=== PATIENT | male | born 1955 | race Caucasian/White ===

== ENCOUNTER 2019-01-12 20:18 | Emergency (ER) | payer MEDICARE, OTHER ==
[2019-01-12 20:37] VITALS: RESP 18
[2019-01-12 21:06] LABS: Glucose,Whole Blood 72 mg/dL (75-99)
[2019-01-12] MEDS ORDERED: SODIUM CHLORIDE 0.9% 500 ML 500 ML IV ONE (21:16)
[2019-01-12] MEDS ORDERED: SODIUM CHLORIDE 0.9% 1,000 ML IV ONE ×3 (21:16→23:22)
--- NOTE | 2019-01-12 21:23 | ED ---
Altered Mental Status HPI - General Chief Complaint: Altered Mental Status Stated Complaint: Altered Mental Status Time Seen by Provider: 01/12/19 20:23 Source: patient, EMS, RN notes reviewed, old records reviewed Mode of arrival: EMS Limitations: no limitations - History of Present Illness Initial Comments: This is a 63-year-old male the ER for evaluation presented today for evaluation of found down. Patient is altered, phone known from normal down time. He was found a well check today. Patient is arousable alert able to answer questions but is in significant distress, occasionally delusional patient nonsensical. History further. From EMS and patient's prior evaluations in charting MD Complaint: altered mental status, confusion, weakness -: unknown Severity: moderate, severe Consistency of Symptoms: waxing and waning, getting worse Context: history of similar presentation Associated Symptoms: weakness - Related Data Home Medications Medication Instructions Recorded Confirmed Aspirin EC [Ecotrin Low Dose] 81 mg PO DAILY 01/12/19 01/12/19 Atorvastatin [Lipitor] 80 mg PO DAILY 01/12/19 01/12/19 Carvedilol [Coreg] 6.25 mg PO BID 01/12/19 01/12/19 Insulin Detemir (Levemir) [Levemir] 100 unit SQ HS 01/12/19 01/12/19 Lisinopril [Zestril] 20 mg PO DAILY 01/12/19 01/12/19 Nitroglycerin Sl Tabs [Nitrostat] 0.4 mg SUBLINGUAL Q5M PRN 01/12/19 01/12/19 Spironolactone [Aldactone] 25 mg PO DAILY 01/12/19 01/12/19 Allergies Allergy/AdvReac Type Severity Reaction Status Date / Time No Known Allergies Allergy Verified 01/12/19 20:37 Review of Systems ROS Statement: Those systems with pertinent positive or pertinent negative responses have been documented in the HPI. ROS Other: All systems not noted in ROS Statement are negative. 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 Absent: scleral icterus, conjunctival injection, periorbital swelling ENT exam: Present: normal exam, mucous membranes dry Neck exam: Present: normal inspection. Absent: tenderness, meningismus, lymphadenopathy Respiratory exam: Present: normal lung sounds bilaterally. Absent: respiratory distress, wheezes, rales, rhonchi, stridor Cardiovascular Exam: Present: normal rhythm, tachycardia, normal heart sounds. Absent: systolic murmur, diastolic murmur, rubs, gallop, clicks GI/Abdominal exam: Present: soft, normal bowel sounds. Absent: distended, tenderness, guarding, rebound, rigid Extremities exam: Present: normal inspection, full ROM, normal capillary refill. Absent: tenderness, pedal edema, joint swelling, calf tenderness Back exam: Present: normal inspection Neurological exam: Present: alert, oriented X3, CN II-XII intact Psychiatric exam: Present: normal affect, normal mood Skin exam: Present: warm, dry, intact, normal color. Absent: rash Course Vital Signs 01/12/19 20:26 Temperature 97.8 F Pulse Rate 112 H Respiratory 18 Rate Blood Pressure 173/94 O2 Sat by Pulse 97 Oximetry - Reevaluation(s) Reevaluation #1: 01/12/19 23:20 Medical record is reviewed Reevaluation #2: 01/12/19 23:20 Patient still delirious not feeling very much improved with IV hydration - Consultations Consultation #1: spoke w Dr. Pedro mcgee for admission Medical Decision Making - Medical Decision Making 63 male the ER for evaluation with altered mental status, delirium. Patient is to be admitted regarding found down we will check severe weakness mild rhabdo myolysis and severe dehydration - Lab Data Result diagrams: 01/12/19 20:57 01/12/19 22:09 Lab Results 01/12/19 01/12/19 01/12/19 Range/Units 20:57 20:57 20:57 WBC 16.4 H (3.8-10.6) k/uL RBC 4.73 (4.30-5.90) m/uL Hgb 15.1 (13.0-17.5) gm/dL Hct 45.8 (39.0-53.0) % MCV 96.8 (80.0-100.0) fL MCH 31.9 (25.0-35.0) pg MCHC 32.9 (31.0-37.0) g/dL RDW 13.7 (11.5-15.5) % Plt Count 162 (150-450) k/uL Neutrophils % 88 % Lymphocytes % 5 % Monocytes % 5 % Eosinophils % 1 % Basophils % 1 % Neutrophils # 14.4 H (1.3-7.7) k/uL Lymphocytes # 0.7 L (1.0-4.8) k/uL Monocytes # 0.8 (0-1.0) k/uL Eosinophils # 0.1 (0-0.7) k/uL Basophils # 0.2 (0-0.2) k/uL PT 11.9 (9.0-12.0) sec INR 1.1 (<1.2) APTT 25.1 (22.0-30.0) sec Sodium (137-145) mmol/L Potassium (3.5-5.1) mmol/L Chloride (98-107) mmol/L Carbon Dioxide (22-30) mmol/L Anion Gap mmol/L BUN (9-20) mg/dL Creatinine (0.66-1.25) mg/dL Est GFR (CKD-EPI)AfAm (>60 ml/min/1.73 sqM) Est GFR (CKD-EPI)NonAf (>60 ml/min/1.73 sqM) Glucose (74-99) mg/dL POC Glucose (mg/dL) (75-99) mg/dL POC Glu Med Care Manager ID Calcium (8.4-10.2) mg/dL Phosphorus (2.5-4.5) mg/dL Magnesium (1.6-2.3) mg/dL Total Bilirubin (0.2-1.3) mg/dL AST (17-59) U/L ALT (21-72) U/L Alkaline Phosphatase (38-126) U/L Ammonia <9 (<30) umol/L Creatine Kinase (55-170) U/L Troponin I (0.000-0.034) ng/mL Total Protein (6.3-8.2) g/dL Albumin (3.5-5.0) g/dL 01/12/19 01/12/19 01/12/19 Range/Units 20:57 21:05 22:09 WBC (3.8-10.6) k/uL RBC (4.30-5.90) m/uL Hgb (13.0-17.5) gm/dL Hct (39.0-53.0) % MCV (80.0-100.0) fL MCH (25.0-35.0) pg MCHC (31.0-37.0) g/dL RDW (11.5-15.5) % Plt Count (150-450) k/uL Neutrophils % % Lymphocytes % % Monocytes % % Eosinophils % % Basophils % % Neutrophils # (1.3-7.7) k/uL Lymphocytes # (1.0-4.8) k/uL Monocytes # (0-1.0) k/uL Eosinophils # (0-0.7) k/uL Basophils # (0-0.2) k/uL PT (9.0-12.0) sec INR (<1.2) APTT (22.0-30.0) sec Sodium 139 (137-145) mmol/L Potassium 4.4 (3.5-5.1) mmol/L Chloride 102 (98-107) mmol/L Carbon Dioxide 25 (22-30) mmol/L Anion Gap 12 mmol/L BUN 17 (9-20) mg/dL Creatinine 0.74 (0.66-1.25) mg/dL Est GFR (CKD-EPI)AfAm >90 (>60 ml/min/1.73 sqM) Est GFR (CKD-EPI)NonAf >90 (>60 ml/min/1.73 sqM) Glucose 85 (74-99) mg/dL POC Glucose (mg/dL) 72 L (75-99) mg/dL POC Glu Med Care Manager ID Whit Mcmillan Calcium 8.7 (8.4-10.2) mg/dL Phosphorus 4.1 (2.5-4.5) mg/dL Magnesium 1.6 (1.6-2.3) mg/dL Total Bilirubin 2.1 H (0.2-1.3) mg/dL AST 63 H (17-59) U/L ALT 51 (21-72) U/L Alkaline Phosphatase 62 (38-126) U/L Ammonia (<30) umol/L Creatine Kinase 835 H (55-170) U/L Troponin I 0.080 H* (0.000-0.034) ng/mL Total Protein 5.8 L (6.3-8.2) g/dL Albumin 3.4 L (3.5-5.0) g/dL - EKG Data -: EKG Interpreted by Me (EKG shows sinus tachycardia rate of 109, AR 146, QRS 140, QTc 509) - Radiology Data Radiology results: report reviewed (CT brain negative for acute disease old lacunar infarct chest x-ray pelvis x-ray negative for traumatic injury), image reviewed Disposition Clinical Impression: Altered mental status, Weakness, Rhabdomyolysis, Debility, Dehydration, Delirium due to general medical condition Disposition: ADMITTED IP TO THIS HOSP Is patient prescribed a controlled substance at d/c from ED?: No Referrals: None,Stated [Primary Care Provider] - 1-2 days
[2019-01-12 21:32] LABS: Basophils # (A) 0.2 k/uL (0-0.2); Basophils % (A) 1 %; Eosinophils # (A) 0.1 k/uL (0-0.7); Eosinophils % (A) 1 %; HCT 45.8 % (39.0-53.0); HGB 15.1 gm/dL (13.0-17.5); Lymphocytes # (A) 0.7 k/uL (1.0-4.8); Lymphocytes % (A) 5 %; MCH 31.9 pg (25.0-35.0); MCHC 32.9 g/dL (31.0-37.0); MCV 96.8 fL (80.0-100.0); Mean Platelet Volume 9.8; Monocytes # (A) 0.8 k/uL (0-1.0); Monocytes % (A) 5 %; Neutrophils # (A) 14.4 k/uL (1.3-7.7); Neutrophils % (A) 88 %; Platelet Count 162 k/uL (150-450); RBC 4.73 m/uL (4.30-5.90); RDW 13.7 % (11.5-15.5); WBC 16.4 k/uL (3.8-10.6)
[2019-01-12 21:58] LABS: INR 1.1 (<1.2); Partial Thromboplastin Time 25.1 sec (22.0-30.0); Prothrombin Time 11.9 sec (9.0-12.0)
[2019-01-12 22:42] LABS: ALT 51 U/L (21-72); AST 63 U/L (17-59); African American GFR (CKD) >90 (>60 ml/min/1.73 sqM); Albumin 3.4 g/dL (3.5-5.0); Alkaline Phosphatase 62 U/L (38-126); Anion Gap 12 mmol/L; Blood Urea Nitrogen 17 mg/dL (9-20); Calcium 8.7 mg/dL (8.4-10.2); Carbon Dioxide 25 mmol/L (22-30); Chloride 102 mmol/L (98-107); Creatine Kinase 835 U/L (55-170); Glucose 85 mg/dL (74-99); Magnesium 1.6 mg/dL (1.6-2.3); Non-African American GFR(CKD) >90 (>60 ml/min/1.73 sqM); Phosphorus 4.1 mg/dL (2.5-4.5); Potassium 4.4 mmol/L (3.5-5.1); Sodium 139 mmol/L (137-145); Total Bilirubin 2.1 mg/dL (0.2-1.3); Total Protein 5.8 g/dL (6.3-8.2)
--- NOTE | 2019-01-12 22:43 | CT ---
History: ITS.REASON CT Reason: altered mental status Exam: CT HEAD Without Contrast Technique more: CTDI is 49.1 mGy and DLP is 1173.4 mGy-cm. Technique more: This CT exam was performed using one or more of the following dose reduction techniques: automated exposure control, adjustment of the mA and/or kV according to patient size, and/or use of iterative reconstruction technique. Comparison: MRI 11/27/2013 FINDINGS: No intracranial hemorrhage or CT evidence of acute infarct. 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 The ventricles are unchanged in size or configuration and remain midline. There is again similar dilation of the posterior portion of the right lateral ventricle with cystic like area with suggested thin septation and displacement of the choroid overall appears unchanged in size. Appearance of right parietal occipital scalp soft tissue swelling suggested axial 29, clinically correlate. The paranasal sinuses, mastoids and orbits appear within limits. Bilateral parasellar carotid calcification. IMPRESSION: No intracranial hemorrhage or CT evidence of acute infarct. 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 The ventricles are unchanged in size or configuration and remain midline. There is again similar dilation of the posterior portion of the right lateral ventricle with cystic like area with suggested thin septation and displacement of the choroid overall appears unchanged in size, correlate with history and may follow-up with nonemergent neurosurgical consult as warranted. Appearance of right parietal occipital scalp soft tissue swelling suggested axial 29, clinically correlate.
[2019-01-12 23:49] VITALS: TEMP 98
--- NOTE | 2019-01-12 23:54 | XR ---
History: ITS.REASON XR Reason: fall Exam: XR CXR 2 VIEWS Comparison: None available FINDINGS: Small right pleural effusion with associated partial passive collapse, atelectasis. Very small portion of the left costophrenic angle excluded on the frontal view. The left lung appears clear. No evidence of pneumothorax. The cardiac silhouette appears upper limits for technique. Visualized osseous structures appear within limits. IMPRESSION: Small right pleural effusion with associated partial passive collapse, atelectasis. Very small portion of the left costophrenic angle excluded on the frontal view. The left lung appears clear. No evidence of pneumothorax.
[2019-01-13 00:02] LABS: Appearance,Urine Clear (Clear); Bacteria,Urine Rare /hpf; Bilirubin,Urine Negative (Negative); Blood,Urine Moderate (Negative); Color,Urine Yellow; Glucose,Urine (UA) Negative (Negative); Hyaline Casts,Urine 14 /lpf (0-2); Ketones,Urine 1+ (Negative); Leukocyte Esterase,Urine Trace (Negative); Mucus,Urine Occasional /hpf; Nitrite,Urine Negative (Negative); PH, Urine 5.5 (5.0-8.0); Protein,Urine 1+ (Negative); RBC,Urine 7 /hpf (0-5); Specific Gravity,Urine 1.017 (1.001-1.035); Squamous Epithelial Cell,Urine 1 /hpf (0-4); Urobilinogen,Urine <2.0 mg/dL (<2.0); WBC,Urine 6 /hpf (0-5)
--- NOTE | 2019-01-13 00:03 | XR ---
History: ITS.REASON XR Reason: fall Exam: XR PELVIS single image Comparison: None available FINDINGS: No evidence of fracture or dislocation. Symmetric appearing SI joints and pubic symphysis appear within limits. Vascular calcifications and pelvic phleboliths. Lower lumbar visualized spondylosis. IMPRESSION: No evidence of fracture or dislocation.
[2019-01-13 00:08] LABS: Amphetamine Screen,Urine Not Detected (NotDetected); Barbiturate Screen,Urine Not Detected (NotDetected); Benzodiazepines Screen,Urine Not Detected (NotDetected); Cocaine Screen,Urine Not Detected (NotDetected); Methadone Screen, Urine Not Detected (NotDetected); Opiate Screen,Urine Not Detected (NotDetected); Oxycodone Screen, Urine Not Detected (NotDetected); Phencyclidine Screen,Urine Not Detected (NotDetected); Tricyclic Antidepressant,Urine Not Detected (NotDetected); Urn Cannabinoid Scrn Not Detected (NotDetected)
--- NOTE | 2019-01-13 00:20 | ED ---
Medical Decision Making - Medical Decision Making 63 male to ED for AMS, found down, mild rhabdomyolysis, CT findings for possible Cyst may need enurosurgical consult on a nonEmergent basis, Dr Sebastian Gonzalez refused admission stating that patient needs neurosurgical evaluation. - Lab Data Result diagrams: 01/12/19 20:57 01/12/19 22:09 Lab Results 01/12/19 01/12/19 01/12/19 Range/Units 20:57 20:57 20:57 WBC 16.4 H (3.8-10.6) k/uL RBC 4.73 (4.30-5.90) m/uL Hgb 15.1 (13.0-17.5) gm/dL Hct 45.8 (39.0-53.0) % MCV 96.8 (80.0-100.0) fL MCH 31.9 (25.0-35.0) pg MCHC 32.9 (31.0-37.0) g/dL RDW 13.7 (11.5-15.5) % Plt Count 162 (150-450) k/uL Neutrophils % 88 % Lymphocytes % 5 % Monocytes % 5 % Eosinophils % 1 % Basophils % 1 % Neutrophils # 14.4 H (1.3-7.7) k/uL Lymphocytes # 0.7 L (1.0-4.8) k/uL Monocytes # 0.8 (0-1.0) k/uL Eosinophils # 0.1 (0-0.7) k/uL Basophils # 0.2 (0-0.2) k/uL PT 11.9 (9.0-12.0) sec INR 1.1 (<1.2) APTT 25.1 (22.0-30.0) sec Sodium (137-145) mmol/L Potassium (3.5-5.1) mmol/L Chloride (98-107) mmol/L Carbon Dioxide (22-30) mmol/L Anion Gap mmol/L BUN (9-20) mg/dL Creatinine (0.66-1.25) mg/dL Est GFR (CKD-EPI)AfAm (>60 ml/min/1.73 sqM) Est GFR (CKD-EPI)NonAf (>60 ml/min/1.73 sqM) Glucose (74-99) mg/dL POC Glucose (mg/dL) (75-99) mg/dL POC Glu Zipper Measurer ID Calcium (8.4-10.2) mg/dL Phosphorus (2.5-4.5) mg/dL Magnesium (1.6-2.3) mg/dL Total Bilirubin (0.2-1.3) mg/dL AST (17-59) U/L ALT (21-72) U/L Alkaline Phosphatase (38-126) U/L Ammonia <9 (<30) umol/L Creatine Kinase (55-170) U/L Troponin I (0.000-0.034) ng/mL Total Protein (6.3-8.2) g/dL Albumin (3.5-5.0) g/dL 01/12/19 01/12/19 01/12/19 Range/Units 20:57 21:05 22:09 WBC (3.8-10.6) k/uL RBC (4.30-5.90) m/uL Hgb (13.0-17.5) gm/dL Hct (39.0-53.0) % MCV (80.0-100.0) fL MCH (25.0-35.0) pg MCHC (31.0-37.0) g/dL RDW (11.5-15.5) % Plt Count (150-450) k/uL Neutrophils % % Lymphocytes % % Monocytes % % Eosinophils % % Basophils % % Neutrophils # (1.3-7.7) k/uL Lymphocytes # (1.0-4.8) k/uL Monocytes # (0-1.0) k/uL Eosinophils # (0-0.7) k/uL Basophils # (0-0.2) k/uL PT (9.0-12.0) sec INR (<1.2) APTT (22.0-30.0) sec Sodium 139 (137-145) mmol/L Potassium 4.4 (3.5-5.1) mmol/L Chloride 102 (98-107) mmol/L Carbon Dioxide 25 (22-30) mmol/L Anion Gap 12 mmol/L BUN 17 (9-20) mg/dL Creatinine 0.74 (0.66-1.25) mg/dL Est GFR (CKD-EPI)AfAm >90 (>60 ml/min/1.73 sqM) Est GFR (CKD-EPI)NonAf >90 (>60 ml/min/1.73 sqM) Glucose 85 (74-99) mg/dL POC Glucose (mg/dL) 72 L (75-99) mg/dL POC Glu Zipper Measurer ID Whit Mcmillan Calcium 8.7 (8.4-10.2) mg/dL Phosphorus 4.1 (2.5-4.5) mg/dL Magnesium 1.6 (1.6-2.3) mg/dL Total Bilirubin 2.1 H (0.2-1.3) mg/dL AST 63 H (17-59) U/L ALT 51 (21-72) U/L Alkaline Phosphatase 62 (38-126) U/L Ammonia (<30) umol/L Creatine Kinase 835 H (55-170) U/L Troponin I 0.080 H* (0.000-0.034) ng/mL Total Protein 5.8 L (6.3-8.2) g/dL Albumin 3.4 L (3.5-5.0) g/dL Disposition Clinical Impression: Altered mental status, Weakness, Rhabdomyolysis, Debility, Dehydration, Delir ium due to general medical condition, Brain cyst Narrative: Brain Cyst w Choroid Displacement Disposition: OTHER INSTITUTION NOT DEFINED Condition: Fair Is patient prescribed a controlled substance at d/c from ED?: No - Out of Hospital Transfer - Req. Specs Out of Hospital Transfer - Requested Specifics[facility] [place]
[2019-01-13 00:24] VITALS: BP 144/86; PULSE 100
[2019-01-13] MEDS ORDERED: ENOXAPARIN 40 MG/0.4 ML SYRINGE SQ SCH (09:00)
== END 2019-01-13 01:25 | disposition other institution (70) ==
LOC: EC 20:18 → UNDOADMOB 23:23 → 4MS4W 23:23 → EC 01-13 01:25
DX: M62.82 Rhabdomyolysis (principal); G93.0 Cerebral cysts; E86.0 Dehydration; R53.81 Other malaise; R41.82 Altered mental status, unspecified; E11.9 Type 2 diabetes mellitus without complications; I50.9 Heart failure, unspecified; Z79.4 Long term (current) use of insulin; Z79.82 Long term (current) use of aspirin; Z79.02 Long term (current) use of antithrombotics/antiplatelets; Z79.899 Other long term (current) drug therapy; Z87.891 Personal history of nicotine dependence
CPT/HCPCS: 36415; 70450; 71046; 72170; 80053; 80306; 81001; 82140; 82550; 83735; 84100; 84484; 85025; 85610; 85730; 93005; 96360; 96361; 99285

== ENCOUNTER 2021-07-28 10:09 | Observation (INO) | payer MEDICARE, OTHER ==
[2021-07-28] MEDS ORDERED: ASPIRIN 81 MG PO STA (10:40)
--- NOTE | 2021-07-28 11:07 | ED ---
Chest Pain HPI - General Chief Complaint: Chest Pain Stated Complaint: chest pain Time Seen by Provider: 07/28/21 10:17 Source: patient, RN notes reviewed Mode of arrival: wheelchair Limitations: no limitations - History of Present Illness Initial Comments: This a 66-year-old male presents emergency Department chief complaint of chest pain. Patient states started a couple hours prior arrival. Patient states that he did take 3 nitro which finally helped some of discomfort. Patient states he was told that he had prior heart attacks has no prior stents. Patient denies any shortness breath this time. Digits for breath. No fevers or chills patient has a history of brain cancer. He shouldn't denies any other associated symptoms. - Related Data Home Medications Medication Instructions Recorded Confirmed Aspirin EC [Ecotrin Low Dose] 81 mg PO DAILY 01/12/19 01/12/19 Atorvastatin [Lipitor] 80 mg PO DAILY 01/12/19 01/12/19 Insulin Detemir (Levemir) [Levemir] 100 unit SQ HS 01/12/19 01/12/19 Nitroglycerin Sl Tabs [Nitrostat] 0.4 mg SUBLINGUAL Q5M PRN 01/12/19 01/12/19 Spironolactone [Aldactone] 25 mg PO DAILY 01/12/19 01/12/19 carvediloL [Coreg] 6.25 mg PO BID 01/12/19 01/12/19 lisinopriL [Zestril] 20 mg PO DAILY 01/12/19 01/12/19 Allergies Allergy/AdvReac Type Severity Reaction Status Date / Time No Known Allergies Allergy Verified 07/28/21 10:14 Review of Systems ROS Statement: Those systems with pertinent positive or pertinent negative responses have been documented in the HPI. ROS Other: All systems not noted in ROS Statement are negative. 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 Absent: scleral icterus, conjunctival injection, periorbital swelling ENT exam: Present: normal exam, normal oropharynx, mucous membranes moist Neck exam: Present: normal inspection, full ROM. Absent: tenderness, meningismus, lymphadenopathy Respiratory exam: Present: normal lung sounds bilaterally. Absent: respiratory distress, wheezes, rales, rhonchi, stridor Cardiovascular Exam: Present: regular rate, normal rhythm, normal heart sounds. Absent: systolic murmur, diastolic murmur, rubs, gallop, clicks GI/Abdominal exam: Present: soft, normal bowel sounds. Absent: distended, tenderness, guarding, rebound, rigid Neurological exam: Present: alert, oriented X3, CN II-XII intact Skin exam: Present: warm, dry, intact, normal color. Absent: rash Course Vital Signs 07/28/21 07/28/21 10:12 12:44 Temperature 98.4 F Pulse Rate 69 70 Respiratory 22 20 Rate Blood Pressure 93/61 153/82 O2 Sat by Pulse 99 100 Oximetry Chest Pain MDM - MDM EKG did have some subtle changes noted on, troponins 0.020had persistent chest pain will be admitted for cardiac rule out. Disposition Clinical Impression: Chest pain Disposition: ADMITTED IP TO THIS HOSP Condition: Fair Referrals: Nonstaff,Physician [Primary Care Provider] - 1-2 days
[2021-07-28 11:16] LABS: Basophils % (A) 1 %; Eosinophils # (A) 0.3 k/uL (0-0.7); Eosinophils % (A) 4 %; HCT 37.9 % (39.0-53.0); HGB 12.7 gm/dL (13.0-17.5); Lymphocytes # (A) 1.3 k/uL (1.0-4.8); Lymphocytes % (A) 17 %; MCH 31.8 pg (25.0-35.0); MCHC 33.4 g/dL (31.0-37.0); MCV 95.2 fL (80.0-100.0); Mean Platelet Volume 8.7; Monocytes # (A) 0.4 k/uL (0-1.0); Monocytes % (A) 5 %; Neutrophils # (A) 5.8 k/uL (1.3-7.7); Neutrophils % (A) 73 %; Platelet Count 148 k/uL (150-450); RBC 3.98 m/uL (4.30-5.90); RDW 13.3 % (11.5-15.5)
[2021-07-28 11:30] LABS: Partial Thromboplastin Time 22.7 sec (22.0-30.0); Prothrombin Time 10.7 sec (9.0-12.0)
[2021-07-28 11:33] LABS: Albumin 3.5 g/dL (3.5-5.0); Calcium 8.8 mg/dL (8.4-10.2); Magnesium 1.8 mg/dL (1.6-2.3); Potassium 4.6 mmol/L (3.5-5.1); Total Bilirubin 0.8 mg/dL (0.2-1.3); Total Protein 6.3 g/dL (6.3-8.2)
--- NOTE | 2021-07-28 12:01 | XR ---
EXAMINATION TYPE: XR chest 2V DATE OF EXAM: 07/28/2021 COMPARISON: 01/12/2019 HISTORY: Shortness of breath TECHNIQUE: Frontal and lateral views of the chest are obtained. FINDINGS: Scattered senescent parenchymal changes noted. No evidence for infiltrate. No evidence for atelectasis. Heart size is stable. Mediastinal structures are stable and grossly unremarkable. No evidence for hilar prominence. Degenerative changes dorsal spine. IMPRESSION: 1. No evidence for acute pulmonary disease.
[2021-07-28] MEDS ORDERED: NITROGLYCERIN SL TABS 0.4 MG TAB SUBLINGUAL PRN (12:51)
[2021-07-28] MEDS ORDERED: traMADol 50 MG TAB PO PRN (14:48)
--- NOTE | 2021-07-28 15:17 | HP ---
HISTORY AND PHYSICAL HISTORY OF PRESENT ILLNESS: 66-year-old male came in with atypical chest pain. He normally gets when he has angina with blocked arteries. He says his last catheterization was a year ago. He has significant history of coronary artery disease with 100% blockage in his LAD. He said they wanted him to do bypass before, but his insurance would not pay for it. He has insurance that will pay for bypass now. This is what he is requesting. He has a right foot amputation. MEDICATIONS: Home medicines please see list. PAST MEDICAL HISTORY: He is a diabetic, insulin-dependent, hypertension, coronary artery disease. Possibly past medical history of some kind of cancers in the past. PAST SURGICAL HISTORY: Surgeries including cataract, vasectomy. PHYSICAL EXAMINATION: Vital signs reviewed. CARDIOVASCULAR S1, S2. LUNGS: Clear. GI soft. HEMATOLOGY: Negative Homans. INTEGUMENT: His has right toe incisions across the base of his foot with all toes removed and appears to be open but linearly open and possibly deep. NEUROLOGIC: Cranial nerves intact. PSYCH: Fair mood and affect. EKG some subtle changes. Troponin were reviewed. ASSESSMENT: 1. Unstable angina. 2. History of coronary artery disease. 3. Suspect more blockages in his heart. 4. Insulin-dependent diabetes mellitus. 5. Diabetic wound infection. 6. Status post amputation of the right foot. 7. Hypertension. 8. Dyslipidemia. PLAN: Dr. Thompson has checked the foot out. Continue current cardiac medications. Rule out [place]. Possibly a bypass or cardiac stents will be needed with an angiogram. MMODL / IJN: [id number] /
[2021-07-28] MEDS: IPRATROPIUM-ALBUTEROL 3 ML NEB INHALATION SCH ×2 (17:38→20:01)
[2021-07-28] MEDS: carvediloL 12.5 MG TAB PO SCH (17:44)
[2021-07-28] MEDS: ATORVASTATIN 80 MG TAB PO SCH (20:02)
[2021-07-28 20:12] LABS: Glucose,Whole Blood 190 mg/dL (75-99)
[2021-07-28] MEDS: INSULIN ASPART (NovoLOG) 100 UNIT/ML VIAL SQ SCH (20:39)
--- NOTE | 2021-07-28 23:34 | P.CONS ---
History of Present Illness - Reason for Consult Consult date: 07/28/21 Right foot wound Requesting physician: Simon Omalley - Chief Complaint Shortness of breath x one day - History of Present Illness Patient is 66-year-old male with a past medical history significant for diabetes mellitus insulin-dependent hypertension hyperlipidemia in this patient who did have recent right foot transmetatarsal amputation surgery completed at [facility] patient presenting to the ER for evaluation of shortness of breath and some chest discomfort for the patient did took 3 nitro to help relieve his discomfort patient mention he got upset at something that triggered this episode currently patient is chest pain-free and i s breathing comfortably he did have occasional cough which is chronic for him no worsening sputum production patient denies having any nausea no vomiting no abdominal pain or any diarrhea patient currently do have a nonhealing wound to the right foot transmetatarsal amputation site however the patient currently do not have any pain to the right foot wound area and there is no foul-smelling drainage patient denies having any fever or any chills or presentation the hospital the patient was afebrile, the patient did have a normal white count patient did have a chest x-ray no evidence of acute cardiopulmonary disease patient was admitted to hospital infectious was consulted for his management of his chronic nonhealing wound to the right foot transmetatarsal amputation site Review of Systems Positive point has been mentioned in the HPI rest of the systems are negative Past Medical History Past Medical History: Asthma, Coronary Artery Disease (CAD), Cancer, Chest Pain / Angina, Heart Failure, Diabetes Mellitus, Hyperlipidemia, Hypertension, Myocardial Infarction (ME), Pneumonia, Respiratory Disorder Additional Past Medical History / Comment(s): Pt states he has hx of brain cancer with paralysis but that the brain cancer "went away" on it's own without treatment, he states he now has a brain cyst, pt states he was exposed to vapors in the workplace and has lung damage d/t this, pt states he wears oxygen ATC to keep from having heart attacks, IDDM type II, neuropathy bilateral legs/feet, partial amp R foot and has wound there now treated with I&D and antibiotics, balance issues/FALLS, anemia, arthritis in multiple joints. Last Myocardial Infarction Date:: 2020 History of Any Multi-Drug Resistant Organisms: None Reported Past Surgical History: Appendectomy, Heart Catheterization, Orthopedic Surgery, Tonsillectomy Additional Past Surgical History / Comment(s): Cardiac caths at [facility] and [facility], R partial foot amp, I&Ds R foot wound, cataract removals, colonoscopy, vasectomy. Past Anesthesia/Blood Transfusion Reactions: No Reported Reaction Smoking Status: Former smoker - Past Family History Father Additional Family Medical History / Comment(s): Father had multiple MIs and from one at the age of 51 yrs. Mother Additional Family Medical History / Comment(s): Mother had a bad heart. Medications and Allergies Home Medications Medication Instructions Recorded Confirmed Type Aspirin EC [Ecotrin Low Dose] 81 mg PO DAILY 01/12/19 07/28/21 History Atorvastatin [Lipitor] 80 mg PO HS 01/12/19 07/28/21 History Albuterol Inhaler [Ventolin Hfa 1 - 2 puff INHALATION RT-Q4H PRN 07/28/21 07/28/21 History Inhaler] Carvedilol [Coreg] 12.5 mg PO BID 07/28/21 07/28/21 History Clopidogrel Bisulfate [Plavix] 75 mg PO DAILY 07/28/21 07/28/21 History Ferrous Sulfate [Feosol] 325 mg PO DAILY 07/28/21 07/28/21 History Furosemide [Lasix] 40 mg PO DAILY 07/28/21 07/28/21 History Insulin Aspart (Niacinamide) 10 units SQ BID 07/28/21 07/28/21 History [Fiasp 100 Unit/ml Flextouch Pen] Insulin Glargine,Hum.rec.anlog 50 unit SQ DAILY 07/28/21 07/28/21 History [Lantus Solostar Pen] Ipratropium-Albuterol Nebulize 3 ml INHALATION RT-QID 07/28/21 07/28/21 History [Duoneb 0.5 mg-3 mg/3 ml Soln] Isosorbide Mononitrate ER [Imdur] 30 mg PO DAILY 07/28/21 07/28/21 History Lactulose [Cephulac] 20 gm PO DAILY 07/28/21 07/28/21 History Losartan [Cozaar] 25 mg PO DAILY 07/28/21 07/28/21 History traMADol HCL [Ultram] 50 mg PO Q6HR PRN 07/28/21 07/28/21 History Allergies Allergy/AdvReac Type Severity Reaction Status Date / Time No Known Allergies Allergy Verified 07/28/21 13:48 Physical Exam Vitals: Vital Signs Temp Pulse Pulse Resp BP BP Pulse Ox 07/28/21 20:09 80 07/28/21 20:01 81 100 07/28/21 18:50 97.9 F 80 18 150/74 100 07/28/21 17:47 76 07/28/21 17:45 75 16 128/94 100 07/28/21 17:39 78 100 07/28/21 12:44 70 20 153/82 100 07/28/21 10:12 98.4 F 69 22 93/61 99 Intake and Output 07/28/21 07/28/21 07/29/21 14:59 22:59 06:59 Other: Voiding Method Toilet Weight 108.862 kg 108.862 kg GENERAL DESCRIPTION: Middle-aged male lying in bed, no distress. No tachypnea or accessory muscle of respiration use. HEENT: Shows Pallor , no scleral icterus. Oral mucous membrane is dry. No pharyngeal erythema or thrush NECK: Trachea central, no thyromegaly. LUNGS: Unlabored breathing. Clear to auscultation anteriorly. No wheeze or crack le. HEART: S1, S2, regular rate and rhythm. No loud murmur ABDOMEN: Soft, no tenderness , guarding or rigidity, no organomegaly EXTREMITIES: Right [facility] possible amputation site did have a wound with some slough tissue no surrounding redness or any drainage SKIN: No rash, no masses palpable. NEUROLOGICAL: The patient is awake, alert, oriented x3, mood and affect normal. Results CBC & Chem 7: 07/28/21 10:49 07/28/21 10:49 Labs: Abnormal Lab Results - Last 24 Hours (Table) 07/28/21 07/28/21 07/28/21 Range/Units 10:49 10:49 15:38 RBC 3.98 L (4.30-5.90) m/uL Hgb 12.7 L (13.0-17.5) gm/dL Hct 37.9 L (39.0-53.0) % Plt Count 148 L (150-450) k/uL Chloride 108 H (98-107) mmol/L BUN 41 H (9-20) mg/dL Glucose 128 H (74-99) mg/dL POC Glucose (mg/dL) (75-99) mg/dL Hemoglobin A1c 8.5 H (0.0-6.0) % 07/28/21 Range/Units 20:11 RBC (4.30-5.90) m/uL Hgb (13.0-17.5) gm/dL Hct (39.0-53.0) % Plt Count (150-450) k/uL Chloride (98-107) mmol/L BUN (9-20) mg/dL Glucose (74-99) mg/dL POC Glucose (mg/dL) 190 H (75-99) mg/dL Hemoglobin A1c (0.0-6.0) % Assessment and Plan (1) Wound of right foot Current Visit: Yes Status: Acute Code(s): S91.301A - UNSPECIFIED OPEN WOUND, RIGHT FOOT, INITIAL ENCOUNTER SNOMED Code(s): 440663113 Plan: 1patient with a nonhealing wound to the right foot transmetatarsal imitation site wound base did have some slough tissue but no surrounding redness no fever no white count clinic suspicion low for secondary infection. 2local wound care with Medih[employer] followed by moist dressing change daily. 3no need for systemic antibiotic therapy. We will follow on clinical condition and cultures to further adjust medication if needed Thank you for this consultation will follow this patient along with you Time with Patient: Greater than 30
[2021-07-29] MEDS ORDERED: ASPIRIN 325 MG TAB PO STA (00:55)
[2021-07-29] MEDS ORDERED: INSULIN DETEMIR (LEVEMIR) 100 UNIT/ML SYR SQ SCH (07:00)
[2021-07-29 07:35] LABS: Glucose,Whole Blood 101 mg/dL (75-99)
[2021-07-29] MEDS: CLOPIDOGREL 75 MG TAB PO SCH (08:36)
[2021-07-29] MEDS: FERROUS SULFATE 325 MG TAB PO SCH (08:36)
[2021-07-29] MEDS: ISOSORBIDE MONONITRATE ER 30 MG TAB.ER.24H PO SCH (08:36)
[2021-07-29] MEDS: LOSARTAN 25 MG TAB PO SCH (08:36)
[2021-07-29] MEDS: FUROSEMIDE 40 MG TAB PO SCH (08:37)
[2021-07-29] MEDS: LACTULOSE 20 GM/30 ML CUP PO SCH (08:37)
[2021-07-29] MEDS: IPRATROPIUM-ALBUTEROL 3 ML NEB INHALATION SCH ×4 (08:40→19:00)
[2021-07-29] MEDS ORDERED: ASPIRIN 81 MG PO SCH (09:00)
[2021-07-29] MEDS ORDERED: ASPIRIN 325 MG TAB PO SCH (09:00)
[2021-07-29 09:23] LABS: Chol/HDL Ratio 2.56 Ratio; LDL Cholesterol,Calculated 50.3 mg/dL (0.0-131.0); VLDL Calculation 15.46 mg/dL (5.00-40.00)
--- NOTE | 2021-07-29 10:00 | ECHOF ---
Referral Reason:chest pain MEASUREMENTS -------- HEIGHT: 182.9 cm WEIGHT: 108.9 kg BP: IVSd: 1.4 cm (0.6 - 1.1) LVIDd: 6.2 cm (3.9 - 5.3) LVPWd: 2.0 cm (0.6 - 1.1) IVSs: 2.3 cm LVIDs: 4.3 cm LVPWs: 1.9 cm Ao Diam: 3.1 cm (2.0 - 3.7) AV Cusp: 2.3 cm (1.5 - 2.6) LA Diam: 3.0 cm (2.7 - 3.8) MV EXCURSION: 8.590 mm (> 18.000) MV EF SLOPE: 46 mm/s (70 - 150) EPSS: 1.6 cm FINDINGS -------- This was a technically difficult study with suboptimal views. The left ventricle is mildly dilated. Left ventricular wall thickness is normal. Overall left cody tricular systolic function is severely impaired with, an EF between 25 - 30 %. Very difficult image s. The RV was not well visualized. The left atrium was not well visualized. The right atrium was not well visualized. 5.0mg of Lumason was utilized for enhancement of images The aortic valve was not well visualized. The mitral valve was not well visualized. The tricuspid valve was not well visualized. The pulmonic valve was not well visualized. CONCLUSIONS -------- 1. The left ventricle is mildly dilated. 2. Left ventricular wall thickness is normal. 3. Overall left ventricular systolic function is severely impaired with, an EF between 25 - 30 %. 4. Very difficult images.. TOBACCO SCRAP SIFTER: Mery Kerr [facility]
--- NOTE | 2021-07-29 10:54 | P.CRDCN ---
History of Present Illness History of present illness: HISTORY OF PRESENTING ILLNESS This is a pleasant .66-year-old male past medical history significant for coronary artery disease (states he has triple vessel CAD told he needed CABG 2-3 years ago), type 2 diabetes, congestive heart failure, cardiomyopathy (unknown details, states he wore a LifeVest 2 years ago), hypertension, dyslipidemia, former tobacco use, recent right foot transmetatarsal amputation secondary to infection completed at [facility] March 25, 2022. 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 We have been asked to see in consultation for chest pain. Patient presents to emergency department with complaints of midsternal chest discomfort, also had symptoms of nausea, vomiting, abdominal pain, shortness of breath. He states he has intermittent chest discomfort for over 3 months. It comes and goes. Non-radiating, nonexertional. Describes it as heaviness, "someone sitting on my chest". no specific aggravating factors. It was relieved by Nitro. He also endorses shortness of breath, nausea, vomiting, which is not new. He states a nurse from [facility] brought him here because "they said he was having a heart attack" He states providers have told him he has 1 year to live. He states that he was told he also had Brain cysts or cancer in the past. He also states that he did not go through with CABG 2 years ago due to insurance issues. He states at this time he does have insurance however no one will perform bypass on him due to his condition at this point. He states when he recieved the LifeVest he just sent it back via [employer] did not inform a provider. He did not follow up with cardiology after admissions at [facility] or [facility] in Levels. DIAGNOSTICS EKG reveals sinus rhythm, heart rate 66, right bundle-branch block,non-specific ST-T wave abnormalities. Prior EKG in 2019 with similar non-specific abnor malities Telemetry tracings indicate sinus mechanism, heart rate in the 60s-80s Chest xray no acute cardiopulmonary process Laboratory reviewed, WBC 8.0, hemoglobin 12.7, platelets 148, d-dimer negative, sodium 139, potassium 4.6, BUN 41, serum creatinine 1.14, BNP 927, troponin negative x []. Current cardiac medications include lisinopril 20 mg daily, carvedilol 6.25 mg twice a day, spironolactone 25 mg daily, atorvastatin 80 mg daily, aspirin 81 mg daily, PRN niro REVIEW OF SYSTEMS At the time of my exam: CONSTITUTIONAL: Denies fever or chills. CARDIOVASCULAR: Denies chest pain, shortness of breath, orthopnea, PND or palpitations. RESPIRATORY: Denies cough. GASTROINTESTINAL: Denies abdominal pain, diarrhea, constipation, nausea or vomiting. MUSCULOSKELETAL: Denies myalgias. NEUROLOGIC: Denies numbness, tingling, headacbe or weakness. ENDOCRINE: Denies fatigue, weight change, polydipsia or polyurina. GENITOURINARY: Denies burning, hematuria or urgency with micturation. HEMATOLOGIC: Denies history of anemia or bleeding. PHYSICAL EXAMINATION Vitals reviewed CONSTITUTIONAL: No apparent distress. HEENT: Head is normocephalic. Pupils are equal, round. Sclerae anicteric. Mucous membranes of the mouth are moist. No JVD. No carotid bruit. CHEST EXAMINATION: Lungs are diminished in the bases to auscultation. No chest wall tenderness is noted on palpation or with deep breathing. HEART EXAMINATION: Regular rate and rhythm. S1, S2 heard. Systolic ejection murmur noted. ABDOMEN: Soft, nontender. Positive bowel sounds. EXTREMITIES: 2+ peripheral pulses, no lower extremity edema and no calf tenderness. NEUROLOGIC EXAMINATION: Patient is awake, alert and oriented x3. Unclear of full medical history. ASSESSMENT Chest pain, atypical, acute coronary syndrome has been ruled out History of congestive heart failure History of Cardiomyopathy (unknown details) History of triple vessel coronary artery disease was recommended CABG 2-3 years ago (unkown details) Type 2 diabetes Hypertension Dyslipidemia Former tobacco use Recent right foot transmetatarsal amputation surgery completed at [facility], non-healing wound PLAN Obtain 2D echocardiogram and doppler study to assess cardiac structure and function. We will obtain records from [facility] and [facility] Continue aspirin, statin, carvedilol, Plavix, Lasix, Imdur, losartan, and PRN nitro Further recommendations based on above. Nurse practitioner note has been reviewed by physician. Signing provider agrees with the documented findings, assessment, and plan of care. Past Medical History Past Medical History: Cancer, Heart Failure, Diabetes Mellitus Additional Past Medical History / Comment(s): states half his brain is gone, brain cancer History of Any Multi-Drug Resistant Organisms: None Reported Past Surgical History: Appendectomy, Tonsillectomy Additional Past Surgical History / Comment(s): cataracts, vasectomy, Past Psychological History: No Psychological Hx Reported Smoking Status: Former smoker Past Alcohol Use History: None Reported Past Drug Use History: None Reported - Past Family History Father Additional Family Medical History / Comment(s): Father had multiple MIs and from one at the age of 51 yrs. Mother Additional Family Medical History / Comment(s): Mother had a bad heart. Medications and Allergies Home Medications Medication Instructions Recorded Confirmed Type Aspirin EC [Ecotrin Low Dose] 81 mg PO DAILY 01/12/19 07/28/21 History Atorvastatin [Lipitor] 80 mg PO HS 01/12/19 07/28/21 History Albuterol Inhaler [Ventolin Hfa 1 - 2 puff INHALATION RT-Q4H PRN 07/28/21 07/28/21 History Inhaler] Carvedilol [Coreg] 12.5 mg PO BID 07/28/21 07/28/21 History Clopidogrel Bisulfate [Plavix] 75 mg PO DAILY 07/28/21 07/28/21 History Ferrous Sulfate [Feosol] 325 mg PO DAILY 07/28/21 07/28/21 History Furosemide [Lasix] 40 mg PO DAILY 07/28/21 07/28/21 History Insulin Aspart (Niacinamide) 10 units SQ BID 07/28/21 07/28/21 History [Fiasp 100 Unit/ml Flextouch Pen] Insulin Glargine,Hum.rec.anlog 50 unit SQ DAILY 07/28/21 07/28/21 History [Lantus Solostar Pen] Ipratropium-Albuterol Nebulize 3 ml INHALATION RT-QID 07/28/21 07/28/21 History [Duoneb 0.5 mg-3 mg/3 ml Soln] Isosorbide Mononitrate ER [Imdur] 30 mg PO DAILY 07/28/21 07/28/21 History Lactulose [Cephulac] 20 gm PO DAILY 07/28/21 07/28/21 History Losartan [Cozaar] 25 mg PO DAILY 07/28/21 07/28/21 History traMADol HCL [Ultram] 50 mg PO Q6HR PRN 07/28/21 07/28/21 History Allergies Allergy/AdvReac Type Severity Reaction Status Date / Time No Known Allergies Allergy Verified 07/28/21 13:48 Physical Exam Vitals: Vital Signs Temp Pulse Resp BP Pulse Ox 07/28/21 12:44 70 20 153/82 100 07/28/21 10:12 98.4 F 69 22 93/61 99 Intake and Output 07/27/21 07/28/21 07/28/21 22:59 06:59 14:59 Other: Weight 108.862 kg Results 07/28/21 10:49 07/28/21 10:49 Cardiac Enzymes 07/28/21 07/28/21 Range/Units 10:49 10:49 AST 23 (17-59) U/L Troponin I 0.020 (0.000-0.034) ng/mL Coagulation 07/28/21 Range/Units 10:49 PT 10.7 (9.0-12.0) sec APTT 22.7 (22.0-30.0) sec CBC 07/28/21 Range/Units 10:49 WBC 8.0 (3.8-10.6) k/uL RBC 3.98 L (4.30-5.90) m/uL Hgb 12.7 L (13.0-17.5) gm/dL Hct 37.9 L (39.0-53.0) % Plt Count 148 L (150-450) k/uL Comprehensive Metabolic Panel 07/28/21 Range/Units 10:49 Sodium 139 (137-145) mmol/L Potassium 4.6 (3.5-5.1) mmol/L Chloride 108 H (98-107) mmol/L Carbon Dioxide 25 (22-30) mmol/L BUN 41 H (9-20) mg/dL Creatinine 1.14 (0.66-1.25) mg/dL Glucose 128 H (74-99) mg/dL Calcium 8.8 (8.4-10.2) mg/dL AST 23 (17-59) U/L ALT 20 (4-49) U/L Alkaline Phosphatase 62 (38-126) U/L Total Protein 6.3 (6.3-8.2) g/dL Albumin 3.5 (3.5-5.0) g/dL Current Medications Generic Name Dose Route Start Last Admin Trade Name Freq PRN Reason Stop Dose Admin Aspirin 325 mg 07/29/21 09:00 Aspirin 325 Mg Tab PO DAILY TWILA Nitroglycerin 0.4 mg 07/28/21 12:51 Nitroglycerin Sl Tabs 0.4 Mg Tab SUBLINGUAL Q5M PRN Chest Pain Intake and Output 07/27/21 07/28/21 07/28/21 22:59 06:59 14:59 Other: Weight 108.862 kg Patient Weight 07/29/21 06:59 Weight 108.862 kg 07/28/21 10:49 07/28/21 10:49
[2021-07-29 12:13] LABS: Glucose,Whole Blood 146 mg/dL (75-99)
[2021-07-29] MEDS: INSULIN ASPART (NovoLOG) 100 UNIT/ML VIAL SQ SCH ×2 (12:23→20:39)
[2021-07-29] MEDS: carvediloL 12.5 MG TAB PO SCH ×2 (16:23→17:13)
[2021-07-29 17:15] LABS: Glucose,Whole Blood 156 mg/dL (75-99)
[2021-07-29 20:26] LABS: Glucose,Whole Blood 190 mg/dL (75-99)
[2021-07-29] MEDS: ATORVASTATIN 80 MG TAB PO SCH (20:38)
--- NOTE | 2021-07-29 21:30 | P.PN ---
Subjective Progress Note Date: 07/29/21 Principal diagnosis: Right foot wound Patient is a 66 year male with a past medical history significant for right foot transmetatarsal amputation for diabetic foot infection with a nonhealing wound in this patient admitted to the hospital with some chest pain and shortness of breath. On today's evaluation that is 07/29/2021 the patient denies having any fever or any chills, the patient is breathing more comfortably, patient denies having any chest pain or cough no abdominal pain or pain to the right foot wound area Objective - Vital Signs Vital signs: Vital Signs Temp 97.8 F 07/29/21 07:00 Pulse 65 07/29/21 12:08 Resp 18 07/29/21 07:00 BP 122/85 07/29/21 07:00 Pulse Ox 99 07/29/21 08:42 Intake & Output 07/28/21 07/29/21 07/29/21 18:59 06:59 18:59 Weight 108.862 kg Other: Voiding Method Toilet # Voids 3 - Exam GENERAL DESCRIPTION: Middle-aged male lying in bed in no distress RESPIRATORY SYSTEM: Unlabored breathing , decreased breath sounds at bases HEART: S1 S2 regular rate and rhythm , ABDOMEN: Soft , no tenderness EXTREMITIES: Right foot is currently dressed no drainage on the dressing - Labs CBC & Chem 7: 07/28/21 10:49 07/28/21 10:49 Labs: Abnormal Lab Results - Last 24 Hours (Table) 07/28/21 07/28/21 07/29/21 Range/Units 15:38 20:11 07:33 POC Glucose (mg/dL) 190 H 101 H (75-99) mg/dL Hemoglobin A1c 8.5 H (0.0-6.0) % 07/29/21 Range/Units 12:12 POC Glucose (mg/dL) 146 H (75-99) mg/dL Hemoglobin A1c (0.0-6.0) % Assessment and Plan (1) Wound of right foot Current Visit: Yes Status: Acute Code(s): S91.301A - UNSPECIFIED OPEN WOUND, RIGHT FOOT, INITIAL ENCOUNTER SNOMED Code(s): 253657352 Plan: 1patient with a nonhealing wound to the right foot transmetatarsal imitation site wound base did have some slough tissue but no surrounding redness no fever no white count clinic suspicion low for secondary infection. 2local wound care with Med[facility] followed by moist dressing change daily. 3no need for systemic antibiotic therapy. Time with Patient: Less than 30
[2021-07-30 07:16] LABS: Glucose,Whole Blood 182 mg/dL (75-99)
[2021-07-30] MEDS: IPRATROPIUM-ALBUTEROL 3 ML NEB INHALATION SCH ×3 (08:36→15:28)
[2021-07-30] MEDS: INSULIN ASPART (NovoLOG) 100 UNIT/ML VIAL SQ SCH (08:49)
[2021-07-30] MEDS: LOSARTAN 25 MG TAB PO SCH (08:50)
[2021-07-30] MEDS: FUROSEMIDE 40 MG TAB PO SCH (08:50)
[2021-07-30] MEDS: FERROUS SULFATE 325 MG TAB PO SCH (08:51)
[2021-07-30] MEDS: carvediloL 12.5 MG TAB PO SCH (08:51)
[2021-07-30] MEDS: CLOPIDOGREL 75 MG TAB PO SCH (08:52)
[2021-07-30] MEDS: LACTULOSE 20 GM/30 ML CUP PO SCH (08:52)
[2021-07-30] MEDS: ISOSORBIDE MONONITRATE ER 30 MG TAB.ER.24H PO SCH (08:52)
[2021-07-30] MEDS ORDERED: ASPIRIN 81 MG PO SCH (09:00)
[2021-07-30 10:30] LABS: Glucose,Whole Blood 235 mg/dL (75-99)
--- NOTE | 2021-07-30 10:32 | P.PN ---
Subjective This is a pleasant .66-year-old male past medical history significant for coronary artery disease (states he has triple vessel CAD told he needed CABG 2-3 years ago), type 2 diabetes, congestive heart failure, cardiomyopathy (unknown details, states he wore a LifeVest 2 years ago), hypertension, dyslipidemia, former tobacco use, recent right foot transmetatarsal amputation secondary to infection completed at [facility] March 25, 2022. He has not followed up with a hair mixer. We have been asked to see in consultat ion for chest pain. Patient presents to emergency department with complaints of midsternal chest discomfort, also had symptoms of nausea, vomiting, abdominal pain, shortness of breath. He states he has intermittent chest discomfort for over 3 months. It comes and goes. Non-radiating, nonexertional. Describes it as heaviness, "someone sitting on my chest". no specific aggravating factors. It was relieved by Nitro. He also endorses shortness of breath, nausea, vomiting, which is not new. He states a nurse from [facility] brought him here because "they said he was having a heart attack" Patient initially went to [facility], underwent cardiac catheterization. He was discharged with a LifeVest at that time (No records available) He then went to [facility] after. This was in 2018 and Records have been obtained: Records: February 2018 patient presented to [facility] with heart failure. He underwent an echocardiogram that revealed an EF of 30%, moderate to severe global hypokinesis. He underwent cardiac catheterization on 02/22/2018 which revealed an EF of 40%, mild diffuse disease in the LAD, mild diffuse disease in the circumflex, moderate diffuse disease in the RCA, proximal lesion with 80% stenosis, chronic total occlusion of the mid RCA with grade 3 collaterals from the left anterior coronary system via septal perforators. At that time it was recommended that patient be managed with optimal medical therapy and will consider possible PCI to the RCA. No PCI was performed at that time. 07/30/2021 Patient seen and examined at bedside. No acute distress. No further chest pain. no acute events overnight. Vital signs stable. His breathing has improved. He states that his symptoms were improved with DuoNeb's. Echocardiogram revealed 2530%. He denies any orthopnea or PND. Patient is currently maintained on aspirin 80 mg daily, atorvastatin 80 mg daily, carvedilol 12.5 mg twice a day, Biaxin 5 mg daily, Lasix 40 mg daily, Imdur 30 mg daily, losartan 25 mg daily PHYSICAL EXAMINATION Vitals reviewed CONSTITUTIONAL: No apparent distress. HEENT: Neck Supple. No JVD. No carotid bruit. CHEST EXAMINATION: Lungs are diminished in the bases to auscultation. No chest wall tenderness is noted on palpation or with deep breathing. HEART EXAMINATION: Regular rate and rhythm. S1, S2 heard. Systolic ejection murmur noted. ABDOMEN: Soft, nontender. Positive bowel sounds. EXTREMITIES: 2+ peripheral pulses, no lower extremity edema and no calf tenderness. NEUROLOGIC EXAMINATION: Patient is awake, alert and oriented x3. Unclear of full medical history. ASSESSMENT Chest pain, atypical, acute coronary syndrome has been ruled out History of congestive heart failure with reduced ejection fraction History of ischemic Cardiomyopathy EF 25-30% Coronary artery disease, as noted above from cardiac catheterization performed in 2018. Type 2 diabetes Hypertension Dyslipidemia Former tobacco use Recent right foot transmetatarsal amputation surgery completed at [facility], non-healing wound PLAN Records reviewed by Dr. Tomlin. No further inpatient workup at this time from a cardiology perspective. Recommend continuing current medical therapy and have close follow up with cardiology as an outpatient. Nurse practitioner note has been reviewed by physician. Signing provider agrees with the documented findings, assessment, and plan of care. Objective - Vital Signs Vital signs: Vital Signs Temp 97.8 F 07/30/21 07:21 Pulse 78 07/30/21 08:55 Resp 16 07/30/21 07:21 BP 165/71 07/30/21 07:21 Pulse Ox 98 07/30/21 08:38 Intake & Output 07/29/21 07/30/21 07/30/21 18:59 06:59 18:59 Intake Total 118 Balance 118 Intake: Oral 118 Other: Voiding Method Toilet Toilet # Voids 1 1 1 - Labs CBC & Chem 7: 07/28/21 10:49 07/28/21 10:49 Labs: Abnormal Lab Results - Last 24 Hours (Table) 07/29/21 07/29/21 07/29/21 Range/Units 12:12 17:14 20:24 POC Glucose (mg/dL) 146 H 156 H 190 H (75-99) mg/dL 07/30/21 Range/Units 07:14 POC Glucose (mg/dL) 182 H (75-99) mg/dL
[2021-07-30 12:05] LABS: Glucose,Whole Blood 202 mg/dL (75-99)
[2021-07-30 14:01] VITALS: BP 137/67; RESP 16; TEMP 98.1
[2021-07-30 15:46] VITALS: PULSE 71
[2021-07-30] MEDS ORDERED: INSULIN DETEMIR (LEVEMIR) 100 UNIT/ML SYR SQ SCH (21:00)
--- NOTE | 2021-08-06 21:22 | P.PN ---
Subjective Progress Note Date: 07/30/21 Principal diagnosis: Right foot wound Patient is a 66 year male with a past medical history significant for right foot transmetatarsal amputation for diabetic foot infection with a nonhealing wound in this patient admitted to the hospital with some chest pain and shortness of breath. On today's evaluation that is 07/30/2021 the patient remains to be afebrile, the patient is breathing comfortably, the patient denies chest pain or cough no abdominal pain or pain to the right foot wound area Objective - Vital Signs Vital signs: Vital Signs Temp 98.0 F 07/30/21 10:35 Pulse 72 07/30/21 12:03 Resp 18 07/30/21 10:35 BP 95/54 07/30/21 10:35 Pulse Ox 99 07/30/21 10:35 Intake & Output 07/29/21 07/30/21 07/30/21 18:59 06:59 18:59 Intake Total 118 Balance 118 Intake: Oral 118 Other: Voiding Method Toilet Toilet # Voids 1 1 1 - Exam GENERAL DESCRIPTION: Middle-aged male lying in bed in no distress RESPIRATORY SYSTEM: Unlabored breathing , decreased breath sounds at bases HEART: S1 S2 regular rate and rhythm , ABDOMEN: Soft , no tenderness EXTREMITIES: Right foot is currently dressed no drainage on the dressing - Labs CBC & Chem 7: 07/28/21 10:49 07/28/21 10:49 Labs: Abnormal Lab Results - Last 24 Hours (Table) 07/29/21 07/29/21 07/30/21 Range/Units 17:14 20:24 07:14 POC Glucose (mg/dL) 156 H 190 H 182 H (75-99) mg/dL 07/30/21 07/30/21 Range/Units 10:28 12:03 POC Glucose (mg/dL) 235 H 202 H (75-99) mg/dL Assessment and Plan (1) Wound of right foot Status: Acute Code(s): S91.301A - UNSPECIFIED OPEN WOUND, RIGHT FOOT, INITIAL ENCOUNTER SNOMED Code(s): 441645807 Plan: 1patient with a nonhealing wound to the right foot transmetatarsal imitation s ite wound base did have some slough tissue but no surrounding redness no fever no white count clinic suspicion low for secondary infection. 2local wound care with Medih[facility] followed by moist dressing change daily and close out Patient follow-up. 3there is no need for systemic antibiotic therapy on discharge.
== END 2021-07-30 16:41 ==
LOC: EC 10:09 → 6NMEDSUR 12:52
PROVIDERS: ADMIT Family Medicine; ATTEND Family Medicine
DX: I25.110 Atherosclerotic heart disease of native coronary artery with unstable angina pectoris (principal); E11.41 Type 2 diabetes mellitus with diabetic mononeuropathy; T87.81 Dehiscence of amputation stump; E11.628 Type 2 diabetes mellitus with other skin complications; I11.0 Hypertensive heart disease with heart failure; I50.22 Chronic systolic (congestive) heart failure; E78.5 Hyperlipidemia, unspecified; I25.82 Chronic total occlusion of coronary artery; I45.10 Unspecified right bundle-branch block; M19.90 Unspecified osteoarthritis, unspecified site; I25.2 Old myocardial infarction; I25.5 Ischemic cardiomyopathy; D64.9 Anemia, unspecified; J45.909 Unspecified asthma, uncomplicated; G93.0 Cerebral cysts; G83.9 Paralytic syndrome, unspecified; Z96.1 Presence of intraocular lens; Z98.42 Cataract extraction status, left eye; Z98.41 Cataract extraction status, right eye; Z87.01 Personal history of pneumonia (recurrent); Z89.431 Acquired absence of right foot; Z79.02 Long term (current) use of antithrombotics/antiplatelets; Z79.4 Long term (current) use of insulin; Z79.82 Long term (current) use of aspirin; Z79.899 Other long term (current) drug therapy; Z85.841 Personal history of malignant neoplasm of brain; Z87.891 Personal history of nicotine dependence; Z95.1 Presence of aortocoronary bypass graft; Z82.49 Family history of ischemic heart disease and other diseases of the circulatory system
CPT/HCPCS: 99285; 36415; 94640 ×5; 94760 ×2; 93005; 93306; 85379; 83880; 80061; 80053; 84443; 83735; 84484; 85025; 85610; 85730; 83036; 71046; G0378 ×3; Q9950

== ENCOUNTER 2021-10-29 15:17 | Observation (INO) | payer OTHER ==
--- NOTE | 2021-10-29 16:21 | ED ---
General Adult HPI - General Source: patient, RN notes reviewed, old records reviewed Mode of arrival: ambulatory Limitations: no limitations <Thai William - Last Filed: 10/29/21 22:51> <Patrick Cee - Last Filed: 10/31/21 11:23> - General Chief complaint: Altered Mental Status Stated complaint: AMS Time Seen by Provider: 10/29/21 15:55 - History of Present Illness Initial comments: 66-year-old [facility]. He has been petitioned. History from the patient is limited. He has really no understanding of why he is here. Apparently had loss of both bowel and bladder function earlier today and refused changes closed. He reports that he had a re cent admission for chest pain and is recommended to have bypass surgery. He has not expressing any chest pain currently. The majority of what he says his nonsensical. (Thai William) - Related Data Home Medications Medication Instructions Recorded Confirmed Aspirin EC [Ecotrin Low Dose] 81 mg PO DAILY 01/12/19 10/29/21 Atorvastatin [Lipitor] 80 mg PO HS 01/12/19 10/29/21 Albuterol Inhaler [Ventolin Hfa 1 - 2 puff INHALATION RT-Q4H PRN 07/28/21 10/29/21 Inhaler] Clopidogrel Bisulfate [Plavix] 75 mg PO DAILY 07/28/21 10/29/21 Ferrous Sulfate [Iron (65 MG 325 mg PO DAILY 07/28/21 10/29/21 Elemental)] Furosemide [Lasix] 40 mg PO DAILY 07/28/21 10/29/21 Insulin Aspart (Niacinamide) 10 units SQ BID 07/28/21 10/29/21 [Fiasp 100 Unit/ml Flextouch Pen] Ipratropium-Albuterol Nebulize 3 ml INHALATION RT-QID 07/28/21 10/29/21 [Duoneb 0.5 mg-3 mg/3 ml Soln] Isosorbide Mononitrate ER [Imdur] 30 mg PO DAILY 07/28/21 10/29/21 Lactulose [Cephulac] 20 gm PO DAILY 07/28/21 10/29/21 Losartan [Cozaar] 25 mg PO DAILY 07/28/21 10/29/21 carvediloL [Coreg] 12.5 mg PO BID 07/28/21 10/29/21 traMADol HCL [Ultram] 50 mg PO Q6HR PRN 07/28/21 10/29/21 Insulin Glargine,Hum.rec.anlog 50 unit SQ DAILY 10/29/21 10/29/21 [Basaglmukesh Arshadpen U-100] Allergies Allergy/AdvReac Type Severity Reaction Status Date / Time No Known Allergies Allergy Verified 10/29/21 18:20 Review of Systems ROS Other: All systems not noted in ROS Statement are negative. <Thai William - Last Filed: 10/29/21 22:51> ROS Other: All systems not noted in ROS Statement are negative. <Patrick Cee - Last Filed: 10/31/21 11:23> ROS Statement: Those systems with pertinent positive or pertinent negative responses have been documented in the HPI. Past Medical History Past Medical History: Cancer, Heart Failure, Diabetes Mellitus Additional Past Medical History / Comment(s): states half his brain is gone, brain cancer Last Myocardial Infarction Date:: 2020 History of Any Multi-Drug Resistant Organisms: None Reported Past Surgical History: Appendectomy, Tonsillectomy Additional Past Surgical History / Comment(s): cataracts, vasectomy, Past Anesthesia/Blood Transfusion Reactions: No Reported Reaction Past Psychological History: No Psychological Hx Reported Smoking Status: Former smoker Past Alcohol Use History: None Reported Past Drug Use History: None Reported - Past Family History Father Additional Family Medical History / Comment(s): Father had multiple MIs and from one at the age of 51 yrs. Mother Additional Family Medical History / Comment(s): Mother had a bad heart. <Thai William - Last Filed: 10/29/21 22:51> General Exam Limitations: no limitations General appearance: alert, in no apparent distress Head exam: Present: atraumatic, normocephalic Eye exam: Present: normal appearance, PERRL ENT exam: Present: normal exam Neck exam: Present: normal inspection. Absent: tenderness, meningismus Respiratory exam: Present: normal lung sounds bilaterally. Absent: respiratory distress, wheezes Cardiovascular Exam: Present: regular rate, normal rhythm GI/Abdominal exam: Present: soft. Absent: distended, tenderness Extremities exam: Present: normal capillary refill Neurological exam: Present: alert, CN II-XII intact. Absent: motor sensory deficit Psychiatric exam: Present: other (Paranoid). Absent: suicidal ideation <Thai William - Last Filed: 10/29/21 22:51> Course <Thai William - Last Filed: 10/29/21 22:51> Vital Signs 10/29/21 10/29/21 10/29/21 15:20 19:37 23:24 Temperature 98 F Pulse Rate 79 77 83 Respiratory 18 20 20 Rate Blood Pressure 144/72 168/69 158/89 O2 Sat by Pulse 100 100 99 Oximetry 10/30/21 10/30/21 10/30/21 06:03 07:01 07:08 Temperature Pulse Rate 70 80 82 Respiratory 18 16 16 Rate Blood Pressure 120/77 O2 Sat by Pulse 98 Oximetry 10/30/21 10/30/21 10/30/21 11:04 11:14 14:00 Temperature Pulse Rate 82 80 98 Respiratory 16 16 16 Rate Blood Pressure 157/82 O2 Sat by Pulse 97 Oximetry 10/31/21 00:00 Temperature Pulse Rate Respiratory 16 Rate Blood Pressure O2 Sat by Pulse Oximetry - Reevaluation(s) Reevaluation #1: 10/29/21 2300 Patient care signed out to Dr. Zacarias at shift change awaiting EPS evaluation (Thai William) EKG Findings - EKG Comments: EKG Findings:: Sinus rhythm right bundle branch block, rate is 70, DE interval 186, QRS duration 156, QTC 450 similar appearing QRS compared to previous EKG in July 2021. <Thai William - Last Filed: 10/29/21 22:51> Medical Decision Making - Lab Data Result diagrams: 10/29/21 16:36 10/29/21 16:36 <Thai William - Last Filed: 10/29/21 22:51> - Lab Data Result diagrams: 10/29/21 16:36 10/29/21 16:36 <Patrick Cee - Last Filed: 10/31/21 11:23> - Medical Decision Making Was notified by EPS that patient may have placement. Requesting certification at this time for psychiatric transfer to geriatric psychiatric facility. I spoke the patient. Is delusional. Has acute psychosis. States is compliant with medications. However he tells me that he has multiple times while he has been here. Believes people are trying to kill him. So medication was completed by myself. Pending transfer and placement. Exam is otherwise unremarkable. Vital signs are within normal limits. (Patrick Cee) - Lab Data Lab Results 10/29/21 10/29/21 10/29/21 Range/Units 16:36 16:36 16:36 WBC 8.6 (3.8-10.6) k/uL RBC 3.65 L (4.30-5.90) m/uL Hgb 11.6 L (13.0-17.5) gm/dL Hct 34.5 L (39.0-53.0) % MCV 94.4 (80.0-100.0) fL MCH 31.7 (25.0-35.0) pg MCHC 33.6 (31.0-37.0) g/dL RDW 13.1 (11.5-15.5) % Plt Count 173 (150-450) k/uL MPV 8.3 Neutrophils % 63 % Lymphocytes % 25 % Monocytes % 6 % Eosinophils % 4 % Basophils % 1 % Neutrophils # 5.4 (1.3-7.7) k/uL Lymphocytes # 2.2 (1.0-4.8) k/uL Monocytes # 0.5 (0-1.0) k/uL Eosinophils # 0.3 (0-0.7) k/uL Basophils # 0.0 (0-0.2) k/uL PT 10.2 (9.0-12.0) sec INR 0.9 (<1.2) APTT 24.1 (22.0-30.0) sec Sodium (137-145) mmol/L Potassium (3.5-5.1) mmol/L Chloride (98-107) mmol/L Carbon Dioxide (22-30) mmol/L Anion Gap mmol/L BUN (9-20) mg/dL Creatinine (0.66-1.25) mg/dL Est GFR (CKD-EPI)AfAm (>60 ml/min/1.73 sqM) Est GFR (CKD-EPI)NonAf (>60 ml/min/1.73 sqM) Glucose (74-99) mg/dL POC Glucose (mg/dL) (70-110) mg/dL POC Glu Industrial Spraypainter ID Calcium (8.4-10.2) mg/dL Total Bilirubin (0.2-1.3) mg/dL AST (17-59) U/L ALT (4-49) U/L Alkaline Phosphatase (38-126) U/L Troponin I (0.000-0.034) ng/mL Total Protein (6.3-8.2) g/dL Albumin (3.5-5.0) g/dL Urine Color Light Yellow Urine Appearance Clear (Clear) Urine pH 5.0 (5.0-8.0) Ur Specific [place] 1.009 (1.001-1.035) Urine Protein Trace H (Negative) Urine Glucose (UA) Negative (Negative) Urine Ketones Negative (Negative) Urine Blood Negative (Negative) Urine Nitrite Negative (Negative) Urine Bilirubin Negative (Negative) Urine Urobilinogen <2.0 (<2.0) mg/dL Ur Leukocyte Esterase Negative (Negative) Urine Opiates Screen Not Detected (NotDetected) Ur Oxycodone Screen Not Detected (NotDetected) Urine Methadone Screen Not Detected (NotDetected) Ur Propoxyphene Screen Not Detected (NotDetected) Ur Barbiturates Screen Not Detected (NotDetected) U Tricyclic Antidepress Not Detected (NotDetected) Ur Phencyclidine Scrn Not Detected (NotDetected) Ur Amphetamines Screen Not Detected (NotDetected) U Methamphetamines Scrn Not Detected (NotDetected) U Benzodiazepines Scrn Not Detected (NotDetected) Urine Cocaine Screen Not Detected (NotDetected) U Marijuana (THC) Screen Not Detected (NotDetected) Serum Alcohol mg/dL Coronavirus (PCR) (Not Detectd) 10/29/21 10/29/21 10/29/21 Range/Units 16:36 16:36 19:40 WBC (3.8-10.6) k/uL RBC (4.30-5.90) m/uL Hgb (13.0-17.5) gm/dL Hct (39.0-53.0) % MCV (80.0-100.0) fL MCH (25.0-35.0) pg MCHC (31.0-37.0) g/dL RDW (11.5-15.5) % Plt Count (150-450) k/uL MPV Neutrophils % % Lymphocytes % % Monocytes % % Eosinophils % % Basophils % % Neutrophils # (1.3-7.7) k/uL Lymphocytes # (1.0-4.8) k/uL Monocytes # (0-1.0) k/uL Eosinophils # (0-0.7) k/uL Basophils # (0-0.2) k/uL PT (9.0-12.0) sec INR (<1.2) APTT (22.0-30.0) sec Sodium 137 (137-145) mmol/L Potassium 4.3 (3.5-5.1) mmol/L Chloride 103 (98-107) mmol/L Carbon Dioxide 26 (22-30) mmol/L Anion Gap 8 mmol/L BUN 42 H (9-20) mg/dL Creatinine 0.95 (0.66-1.25) mg/dL Est GFR (CKD-EPI)AfAm >90 (>60 ml/min/1.73 sqM) Est GFR (CKD-EPI)NonAf 85 (>60 ml/min/1.73 sqM) Glucose 118 H (74-99) mg/dL POC Glucose (mg/dL) 163 H (70-110) mg/dL POC Glu Industrial Spraypainter ID Calcium 9.2 (8.4-10.2) mg/dL Total Bilirubin 0.9 (0.2-1.3) mg/dL AST 24 (17-59) U/L ALT 20 (4-49) U/L Alkaline Phosphatase 67 (38-126) U/L Troponin I 0.019 (0.000-0.034) ng/mL Total Protein 6.6 (6.3-8.2) g/dL Albumin 4.0 (3.5-5.0) g/dL Urine Color Urine Appearance (Clear) Urine pH (5.0-8.0) Ur Specific [place] (1.001-1.035) Urine Protein (Negative) Urine Glucose (UA) (Negative) Urine Ketones (Negative) Urine Blood (Negative) Urine Nitrite (Negative) Urine Bilirubin (Negative) Urine Urobilinogen (<2.0) mg/dL Ur Leukocyte Esterase (Negative) Urine Opiates Screen (NotDetected) Ur Oxycodone Screen (NotDetected) Urine Methadone Screen (NotDetected) Ur Propoxyphene Screen (NotDetected) Ur Barbiturates Screen (NotDetected) U Tricyclic Antidepress (NotDetected) Ur Phencyclidine Scrn (NotDetected) Ur Amphetamines Screen (NotDetected) U Methamphetamines Scrn (NotDetected) U Benzodiazepines Scrn (NotDetected) Urine Cocaine Screen (NotDetected) U Marijuana (THC) Screen (NotDetected) Serum Alcohol <10 mg/dL Coronavirus (PCR) (Not Detectd) 10/29/21 10/30/21 10/30/21 Range/Units 23:28 10:07 12:30 WBC (3.8-10.6) k/uL RBC (4.30-5.90) m/uL Hgb (13.0-17.5) gm/dL Hct (39.0-53.0) % MCV (80.0-100.0) fL MCH (25.0-35.0) pg MCHC (31.0-37.0) g/dL RDW (11.5-15.5) % Plt Count (150-450) k/uL MPV Neutrophils % % Lymphocytes % % Monocytes % % Eosinophils % % Basophils % % Neutrophils # (1.3-7.7) k/uL Lymphocytes # (1.0-4.8) k/uL Monocytes # (0-1.0) k/uL Eosinophils # (0-0.7) k/uL Basophils # (0-0.2) k/uL PT (9.0-12.0) sec INR (<1.2) APTT (22.0-30.0) sec Sodium (137-145) mmol/L Potassium (3.5-5.1) mmol/L Chloride (98-107) mmol/L Carbon Dioxide (22-30) mmol/L Anion Gap mmol/L BUN (9-20) mg/dL Creatinine (0.66-1.25) mg/dL Est GFR (CKD-EPI)AfAm (>60 ml/min/1.73 sqM) Est GFR (CKD-EPI)NonAf (>60 ml/min/1.73 sqM) Glucose (74-99) mg/dL POC Glucose (mg/dL) 244 H 215 H (70-110) mg/dL POC Glu Industrial Spraypainter Tram Soler Kathryn Calcium (8.4-10.2) mg/dL Total Bilirubin (0.2-1.3) mg/dL AST (17-59) U/L ALT (4-49) U/L Alkaline Phosphatase (38-126) U/L Troponin I (0.000-0.034) ng/mL Total Protein (6.3-8.2) g/dL Albumin (3.5-5.0) g/dL Urine Color Urine Appearance (Clear) Urine pH (5.0-8.0) Ur Specific [place] (1.001-1.035) Urine Protein (Negative) Urine Glucose (UA) (Negative) Urine Ketones (Negative) Urine Blood (Negative) Urine Nitrite (Negative) Urine Bilirubin (Negative) Urine Urobilinogen (<2.0) mg/dL Ur Leukocyte Esterase (Negative) Urine Opiates Screen (NotDetected) Ur Oxycodone Screen (NotDetected) Urine Methadone Screen (NotDetected) Ur Propoxyphene Screen (NotDetected) Ur Barbiturates Screen (NotDetected) U Tricyclic Antidepress (NotDetected) Ur Phencyclidine Scrn (NotDetected) Ur Amphetamines Screen (NotDetected) U Methamphetamines Scrn (NotDetected) U Benzodiazepines Scrn (NotDetected) Urine Cocaine Screen (NotDetected) U Marijuana (THC) Screen (NotDetected) Serum Alcohol mg/dL Coronavirus (PCR) Not Detected (Not Detectd) 10/30/21 10/30/21 10/30/21 Range/Units 17:35 18:58 20:53 WBC (3.8-10.6) k/uL RBC (4.30-5.90) m/uL Hgb (13.0-17.5) gm/dL Hct (39.0-53.0) % MCV (80.0-100.0) fL MCH (25.0-35.0) pg MCHC (31.0-37.0) g/dL RDW (11.5-15.5) % Plt Count (150-450) k/uL MPV Neutrophils % % Lymphocytes % % Monocytes % % Eosinophils % % Basophils % % Neutrophils # (1.3-7.7) k/uL Lymphocytes # (1.0-4.8) k/uL Monocytes # (0-1.0) k/uL Eosinophils # (0-0.7) k/uL Basophils # (0-0.2) k/uL PT (9.0-12.0) sec INR (<1.2) APTT (22.0-30.0) sec Sodium (137-145) mmol/L Potassium (3.5-5.1) mmol/L Chloride (98-107) mmol/L Carbon Dioxide (22-30) mmol/L Anion Gap mmol/L BUN (9-20) mg/dL Creatinine (0.66-1.25) mg/dL Est GFR (CKD-EPI)AfAm (>60 ml/min/1.73 sqM) Est GFR (CKD-EPI)NonAf (>60 ml/min/1.73 sqM) Glucose (74-99) mg/dL POC Glucose (mg/dL) 260 H 242 H 225 H (70-110) mg/dL POC Glu Industrial Spraypainter Tram Soler, Jolene Shepherd Calcium (8.4-10.2) mg/dL Total Bilirubin (0.2-1.3) mg/dL AST (17-59) U/L ALT (4-49) U/L Alkaline Phosphatase (38-126) U/L Troponin I (0.000-0.034) ng/mL Total Protein (6.3-8.2) g/dL Albumin (3.5-5.0) g/dL Urine Color Urine Appearance (Clear) Urine pH (5.0-8.0) Ur Specific [place] (1.001-1.035) Urine Protein (Negative) Urine Glucose (UA) (Negative) Urine Ketones (Negative) Urine Blood (Negative) Urine Nitrite (Negative) Urine Bilirubin (Negative) Urine Urobilinogen (<2.0) mg/dL Ur Leukocyte Esterase (Negative) Urine Opiates Screen (NotDetected) Ur Oxycodone Screen (NotDetected) Urine Methadone Screen (NotDetected) Ur Propoxyphene Screen (NotDetected) Ur Barbiturates Screen (NotDetected) U Tricyclic Antidepress (NotDetected) Ur Phencyclidine Scrn (NotDetected) Ur Amphetamines Screen (NotDetected) U Methamphetamines Scrn (NotDetected) U Benzodiazepines Scrn (NotDetected) Urine Cocaine Screen (NotDetected) U Marijuana (THC) Screen (NotDetected) Serum Alcohol mg/dL Coronavirus (PCR) (Not Detectd) Disposition <Thai William - Last Filed: 10/29/21 22:51> <Patrick Cee - Last Filed: 10/31/21 11:23> Clinical Impression: Delusions, Acute psychosis, Paranoia, Encounter for psychiatric assessment Disposition: TRANSFER TO PSYCH HOSP/UNIT Condition: Fair Referrals: OZIEL ACKERMAN DO [Primary Care Provider] - 1-2 days
[2021-10-29 16:47] LABS: Basophils % (A) 1 %; Eosinophils # (A) 0.3 k/uL (0-0.7); Eosinophils % (A) 4 %; HCT 34.5 % (39.0-53.0); HGB 11.6 gm/dL (13.0-17.5); Lymphocytes # (A) 2.2 k/uL (1.0-4.8); Lymphocytes % (A) 25 %; MCH 31.7 pg (25.0-35.0); MCHC 33.6 g/dL (31.0-37.0); MCV 94.4 fL (80.0-100.0); Mean Platelet Volume 8.3; Monocytes # (A) 0.5 k/uL (0-1.0); Monocytes % (A) 6 %; Neutrophils # (A) 5.4 k/uL (1.3-7.7); Neutrophils % (A) 63 %; Platelet Count 173 k/uL (150-450); RBC 3.65 m/uL (4.30-5.90); RDW 13.1 % (11.5-15.5); WBC 8.6 k/uL (3.8-10.6)
[2021-10-29 16:56] LABS: INR 0.9 (<1.2); Partial Thromboplastin Time 24.1 sec (22.0-30.0); Prothrombin Time 10.2 sec (9.0-12.0)
[2021-10-29 17:00] LABS: ALT 20 U/L (4-49); AST 24 U/L (17-59); African American GFR (CKD) >90 (>60 ml/min/1.73 sqM); Alcohol <10 mg/dL; Alkaline Phosphatase 67 U/L (38-126); Anion Gap 8 mmol/L; Blood Urea Nitrogen 42 mg/dL (9-20); Calcium 9.2 mg/dL (8.4-10.2); Carbon Dioxide 26 mmol/L (22-30); Chloride 103 mmol/L (98-107); Glucose 118 mg/dL (74-99); Non-African American GFR(CKD) 85 (>60 ml/min/1.73 sqM); Potassium 4.3 mmol/L (3.5-5.1); Sodium 137 mmol/L (137-145); Total Bilirubin 0.9 mg/dL (0.2-1.3); Total Protein 6.6 g/dL (6.3-8.2)
[2021-10-29 17:24] LABS: Appearance,Urine Clear (Clear); Bilirubin,Urine Negative (Negative); Blood,Urine Negative (Negative); Color,Urine Light Yellow; Glucose,Urine (UA) Negative (Negative); Ketones,Urine Negative (Negative); Leukocyte Esterase,Urine Negative (Negative); Nitrite,Urine Negative (Negative); Protein,Urine Trace (Negative); Specific Gravity,Urine 1.009 (1.001-1.035); Urobilinogen,Urine <2.0 mg/dL (<2.0)
[2021-10-29 17:31] LABS: Amphetamine Screen,Urine Not Detected (NotDetected); Barbiturate Screen,Urine Not Detected (NotDetected); Benzodiazepines Screen,Urine Not Detected (NotDetected); Cocaine Screen,Urine Not Detected (NotDetected); Methadone Screen, Urine Not Detected (NotDetected); Opiate Screen,Urine Not Detected (NotDetected); Oxycodone Screen, Urine Not Detected (NotDetected); Phencyclidine Screen,Urine Not Detected (NotDetected); Tricyclic Antidepressant,Urine Not Detected (NotDetected); Urn Cannabinoid Scrn Not Detected (NotDetected)
--- NOTE | 2021-10-29 18:18 | CT ---
EXAMINATION TYPE: CT brain wo con DATE OF EXAM: 10/29/2021 COMPARISON: 01/12/2019 HISTORY: AMS CT DLP: 1151.4 mGycm Automated exposure control for dose reduction was used. There is asymmetric enlargement occipital horn right lateral ventricle. There is no mass effect or mi dline shift. There is 5 mm hypodensity left posterior caudate nucleus. There is cerebral cortical atr ophy. Calvarium is intact. IMPRESSION: Asymmetric enlargement occipital horn right lateral ventricle consistent with old infarct and not yanet nged compared to old exam. 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 No acute intracranial abnormal ity.
[2021-10-29 19:41] LABS: Glucose,Whole Blood 163 mg/dL (70-110)
[2021-10-29] MEDS ORDERED: ATORVASTATIN 80 MG TAB PO STA (22:42)
[2021-10-29] MEDS ORDERED: carvediloL 12.5 MG TAB PO STA (22:42)
[2021-10-30] MEDS ORDERED: traMADol 50 MG TAB PO PRN (06:08)
[2021-10-30] MEDS: IPRATROPIUM-ALBUTEROL 3 ML NEB INHALATION SCH ×2 (07:01→11:04)
[2021-10-30] MEDS: LACTULOSE 20 GM/30 ML CUP PO SCH ×2 (08:27→08:34)
[2021-10-30] MEDS: ISOSORBIDE MONONITRATE ER 30 MG TAB.ER.24H PO SCH ×2 (08:27→08:34)
[2021-10-30] MEDS: carvediloL 12.5 MG TAB PO SCH ×3 (08:27→17:41)
[2021-10-30] MEDS: CLOPIDOGREL 75 MG TAB PO SCH ×2 (08:27→08:33)
[2021-10-30] MEDS: FUROSEMIDE 40 MG TAB PO SCH ×3 (08:27→14:01)
[2021-10-30] MEDS: FERROUS SULFATE 325 MG TAB PO SCH ×2 (08:27→08:34)
[2021-10-30] MEDS: LOSARTAN 25 MG TAB PO SCH (08:27)
[2021-10-30] MEDS: ASPIRIN 81 MG PO SCH ×3 (08:28→14:01)
[2021-10-30 10:09] LABS: Glucose,Whole Blood 244 mg/dL (70-110)
[2021-10-30 12:31] LABS: Glucose,Whole Blood 215 mg/dL (70-110)
[2021-10-30 17:37] LABS: Glucose,Whole Blood 260 mg/dL (70-110)
[2021-10-30] MEDS: INSULIN ASPART (NovoLOG) 100 UNIT/ML VIAL SQ SCH (17:40)
[2021-10-30 19:00] LABS: Glucose,Whole Blood 242 mg/dL (70-110)
[2021-10-30 20:54] LABS: Glucose,Whole Blood 225 mg/dL (70-110)
[2021-10-30] MEDS ORDERED: INSULIN DETEMIR (LEVEMIR) 100 UNIT/ML SYR SQ SCH (21:00)
[2021-10-30] MEDS: ATORVASTATIN 80 MG TAB PO SCH (21:11)
[2021-10-31] MEDS: ASPIRIN 81 MG PO SCH (09:59)
[2021-10-31] MEDS: ISOSORBIDE MONONITRATE ER 30 MG TAB.ER.24H PO SCH ×2 (09:59→10:00)
[2021-10-31] MEDS: FUROSEMIDE 40 MG TAB PO SCH (10:00)
[2021-10-31] MEDS: carvediloL 12.5 MG TAB PO SCH ×2 (10:00→20:26)
[2021-10-31] MEDS: LOSARTAN 25 MG TAB PO SCH (10:01)
[2021-10-31] MEDS: FERROUS SULFATE 325 MG TAB PO SCH ×2 (10:01→10:03)
[2021-10-31] MEDS: CLOPIDOGREL 75 MG TAB PO SCH (10:01)
[2021-10-31] MEDS: LACTULOSE 20 GM/30 ML CUP PO SCH (10:04)
[2021-10-31] MEDS: INSULIN ASPART (NovoLOG) 100 UNIT/ML VIAL SQ SCH ×3 (12:06→20:27)
[2021-10-31 12:07] LABS: Glucose,Whole Blood 233 mg/dL (70-110)
[2021-10-31 17:23] LABS: Glucose,Whole Blood 296 mg/dL (70-110)
[2021-10-31 20:09] LABS: Glucose,Whole Blood 266 mg/dL (70-110)
[2021-10-31] MEDS: INSULIN DETEMIR (LEVEMIR) 100 UNIT/ML SYR SQ SCH (22:37)
[2021-10-31] MEDS: ATORVASTATIN 80 MG TAB PO SCH (22:37)
[2021-11-01] MEDS ORDERED: traMADol 50 MG TAB PO PRN (08:48)
[2021-11-01] MEDS: carvediloL 12.5 MG TAB PO SCH ×3 (09:09→18:05)
[2021-11-01] MEDS: FUROSEMIDE 40 MG TAB PO SCH (09:09)
[2021-11-01] MEDS: FERROUS SULFATE 325 MG TAB PO SCH (09:10)
[2021-11-01] MEDS: ISOSORBIDE MONONITRATE ER 30 MG TAB.ER.24H PO SCH (09:10)
[2021-11-01] MEDS: CLOPIDOGREL 75 MG TAB PO SCH (09:10)
[2021-11-01] MEDS: LOSARTAN 25 MG TAB PO SCH (09:10)
[2021-11-01] MEDS: LACTULOSE 20 GM/30 ML CUP PO SCH (09:10)
[2021-11-01] MEDS: ASPIRIN 81 MG PO SCH (09:10)
[2021-11-01] MEDS: INSULIN ASPART (NovoLOG) 100 UNIT/ML VIAL SQ SCH ×4 (09:11→18:05)
[2021-11-01 09:16] LABS: Glucose,Whole Blood 185 mg/dL (70-110)
[2021-11-01 12:35] LABS: Glucose,Whole Blood 349 mg/dL (70-110)
[2021-11-01 18:08] LABS: Glucose,Whole Blood 234 mg/dL (70-110)
[2021-11-02 00:31] LABS: Glucose,Whole Blood 251 mg/dL (70-110)
[2021-11-02] MEDS: INSULIN DETEMIR (LEVEMIR) 100 UNIT/ML SYR SQ SCH (03:52)
[2021-11-02] MEDS: ATORVASTATIN 80 MG TAB PO SCH ×2 (03:53→22:04)
[2021-11-02 08:32] LABS: Glucose,Whole Blood 275 mg/dL (70-110)
[2021-11-02] MEDS: LACTULOSE 20 GM/30 ML CUP PO SCH (08:53)
[2021-11-02] MEDS: FUROSEMIDE 40 MG TAB PO SCH (08:54)
[2021-11-02] MEDS: ISOSORBIDE MONONITRATE ER 30 MG TAB.ER.24H PO SCH (08:54)
[2021-11-02] MEDS: CLOPIDOGREL 75 MG TAB PO SCH (08:54)
[2021-11-02] MEDS: FERROUS SULFATE 325 MG TAB PO SCH (08:54)
[2021-11-02] MEDS: LOSARTAN 25 MG TAB PO SCH (08:54)
[2021-11-02] MEDS: ASPIRIN 81 MG PO SCH (08:54)
[2021-11-02] MEDS: carvediloL 12.5 MG TAB PO SCH ×2 (08:55→18:58)
[2021-11-02] MEDS: INSULIN ASPART (NovoLOG) 100 UNIT/ML VIAL SQ SCH ×4 (08:55→16:57)
[2021-11-02 12:02] LABS: Glucose,Whole Blood 231 mg/dL (70-110)
[2021-11-02] MEDS ORDERED: NITROGLYCERIN SL TABS 0.4 MG TAB SUBLINGUAL STA (12:17)
[2021-11-02 12:30] LABS: Basophils % (A) 0 %; Eosinophils # (A) 0.3 k/uL (0-0.7); Eosinophils % (A) 3 %; HCT 32.6 % (39.0-53.0); HGB 10.8 gm/dL (13.0-17.5); Lymphocytes # (A) 1.7 k/uL (1.0-4.8); Lymphocytes % (A) 20 %; MCH 31.7 pg (25.0-35.0); MCHC 33.1 g/dL (31.0-37.0); MCV 95.8 fL (80.0-100.0); Mean Platelet Volume 9.7; Monocytes # (A) 0.4 k/uL (0-1.0); Monocytes % (A) 5 %; Neutrophils # (A) 5.7 k/uL (1.3-7.7); Neutrophils % (A) 70 %; Platelet Count 164 k/uL (150-450); RDW 13.2 % (11.5-15.5); WBC 8.2 k/uL (3.8-10.6)
--- NOTE | 2021-11-02 12:34 | XR ---
EXAMINATION TYPE: XR chest 2V DATE OF EXAM: 11/02/2021 12:27 PM COMPARISON: Chest radiographs from 07/28/2021. TECHNIQUE: XR chest 2V Frontal and lateral views of the chest. CLINICAL INDICATION:Male, 66 years old with history of Chest pain; FINDINGS: Lungs/Pleura: There is no evidence of pleural effusion, focal consolidation, or pneumothorax. Flatte ion of the hemidiaphragms. Pulmonary vascularity: Unremarkable. Heart/mediastinum: Cardiomediastinal silhouette is unremarkable. Musculoskeletal: Multiple level degenerative disc disease changes seen throughout the spine. No acute osseous pathology. IMPRESSION: No acute cardiopulmonary disease/process. No significant change from prior examination.
[2021-11-02 12:44] LABS: Albumin 3.6 g/dL (3.5-5.0); Calcium 8.5 mg/dL (8.4-10.2); Potassium 5.1 mmol/L (3.5-5.1); Total Bilirubin 0.6 mg/dL (0.2-1.3)
[2021-11-02] MEDS ORDERED: HEPARIN SODIUM 1,000 UN/ML (10ML VL) IV ONE (13:43)
--- NOTE | 2021-11-02 13:43 | ED ---
Medical Decision Making - Medical Decision Making The patient had been complaining of retrosternal chest pain consistent with his previous chest pain related to angina. He was admitted several months ago and told he may need bypass surgery. He was given sublingual nitroglycerin and did resolve the pain. He did have an EKG done which showed a normal sinus rhythm a 73 NE interval 177 QRS duration 156 daily since QTC 420/450) the branch block pattern T wave abnormality. As is compared with an EKG dated showing similar configuration. I did discuss the case with the patient as well as with Dr. Franco the patient will be admitted for cardiology evaluation as well as psychiatry. - Lab Data Result diagrams: 11/02/21 12:18 11/02/21 12:18 Lab Results 10/29/21 10/29/21 10/29/21 Range/Units 16:36 16:36 16:36 WBC 8.6 (3.8-10.6) k/uL RBC 3.65 L (4.30-5.90) m/uL Hgb 11.6 L (13.0-17.5) gm/dL Hct 34.5 L (39.0-53.0) % MCV 94.4 (80.0-100.0) fL MCH 31.7 (25.0-35.0) pg MCHC 33.6 (31.0-37.0) g/dL RDW 13.1 (11.5-15.5) % Plt Count 173 (150-450) k/uL MPV 8.3 Neutrophils % 63 % Lymphocytes % 25 % Monocytes % 6 % Eosinophils % 4 % Basophils % 1 % Neutrophils # 5.4 (1.3-7.7) k/uL Lymphocytes # 2.2 (1.0-4.8) k/uL Monocytes # 0.5 (0-1.0) k/uL Eosinophils # 0.3 (0-0.7) k/uL Basophils # 0.0 (0-0.2) k/uL PT 10.2 (9.0-12.0) sec INR 0.9 (<1.2) APTT 24.1 (22.0-30.0) sec Sodium (137-145) mmol/L Potassium (3.5-5.1) mmol/L Chloride (98-107) mmol/L Carbon Dioxide (22-30) mmol/L Anion Gap mmol/L BUN (9-20) mg/dL Creatinine (0.66-1.25) mg/dL Est GFR (CKD-EPI)AfAm (>60 ml/min/1.73 sqM) Est GFR (CKD-EPI)NonAf (>60 ml/min/1.73 sqM) Glucose (74-99) mg/dL POC Glucose (mg/dL) (70-110) mg/dL POC Glu Control Room Helper ID Calcium (8.4-10.2) mg/dL Magnesium (1.6-2.3) mg/dL Total Bilirubin (0.2-1.3) mg/dL AST (17-59) U/L ALT (4-49) U/L Alkaline Phosphatase (38-126) U/L Creatine Kinase (55-170) U/L Troponin I (0.000-0.034) ng/mL Total Protein (6.3-8.2) g/dL Albumin (3.5-5.0) g/dL Urine Color Light Yellow Urine Appearance Clear (Clear) Urine pH 5.0 (5.0-8.0) Ur Specific [place] 1.009 (1.001-1.035) Urine Protein Trace H (Negative) Urine Glucose (UA) Negative (Negative) Urine Ketones Negative (Negative) Urine Blood Negative (Negative) Urine Nitrite Negative (Negative) Urine Bilirubin Negative (Negative) Urine Urobilinogen <2.0 (<2.0) mg/dL Ur Leukocyte Esterase Negative (Negative) Urine Opiates Screen Not Detected (NotDetected) Ur Oxycodone Screen Not Detected (NotDetected) Urine Methadone Screen Not Detected (NotDetected) Ur Propoxyphene Screen Not Detected (NotDetected) Ur Barbiturates Screen Not Detected (NotDetected) U Tricyclic Antidepress Not Detected (NotDetected) Ur Phencyclidine Scrn Not Detected (NotDetected) Ur Amphetamines Screen Not Detected (NotDetected) U Methamphetamines Scrn Not Detected (NotDetected) U Benzodiazepines Scrn Not Detected (NotDetected) Urine Cocaine Screen Not Detected (NotDetected) U Marijuana (THC) Screen Not Detected (NotDetected) Serum Alcohol mg/dL Coronavirus (PCR) (Not Detectd) 10/29/21 10/29/21 10/29/21 Range/Units 16:36 16:36 19:40 WBC (3.8-10.6) k/uL RBC (4.30-5.90) m/uL Hgb (13.0-17.5) gm/dL Hct (39.0-53.0) % MCV (80.0-100.0) fL MCH (25.0-35.0) pg MCHC (31.0-37.0) g/dL RDW (11.5-15.5) % Plt Count (150-450) k/uL MPV Neutrophils % % Lymphocytes % % Monocytes % % Eosinophils % % Basophils % % Neutrophils # (1.3-7.7) k/uL Lymphocytes # (1.0-4.8) k/uL Monocytes # (0-1.0) k/uL Eosinophils # (0-0.7) k/uL Basophils # (0-0.2) k/uL PT (9.0-12.0) sec INR (<1.2) APTT (22.0-30.0) sec Sodium 137 (137-145) mmol/L Potassium 4.3 (3.5-5.1) mmol/L Chloride 103 (98-107) mmol/L Carbon Dioxide 26 (22-30) mmol/L Anion Gap 8 mmol/L BUN 42 H (9-20) mg/dL Creatinine 0.95 (0.66-1.25) mg/dL Est GFR (CKD-EPI)AfAm >90 (>60 ml/min/1.73 sqM) Est GFR (CKD-EPI)NonAf 85 (>60 ml/min/1.73 sqM) Glucose 118 H (74-99) mg/dL POC Glucose (mg/dL) 163 H (70-110) mg/dL POC Glu Control Room Helper ID Calcium 9.2 (8.4-10.2) mg/dL Magnesium (1.6-2.3) mg/dL Total Bilirubin 0.9 (0.2-1.3) mg/dL AST 24 (17-59) U/L ALT 20 (4-49) U/L Alkaline Phosphatase 67 (38-126) U/L Creatine Kinase (55-170) U/L Troponin I 0.019 (0.000-0.034) ng/mL Total Protein 6.6 (6.3-8.2) g/dL Albumin 4.0 (3.5-5.0) g/dL Urine Color Urine Appearance (Clear) Urine pH (5.0-8.0) Ur Specific [place] (1.001-1.035) Urine Protein (Negative) Urine Glucose (UA) (Negative) Urine Ketones (Negative) Urine Blood (Negative) Urine Nitrite (Negative) Urine Bilirubin (Negative) Urine Urobilinogen (<2.0) mg/dL Ur Leukocyte Esterase (Negative) Urine Opiates Screen (NotDetected) Ur Oxycodone Screen (NotDetected) Urine Methadone Screen (NotDetected) Ur Propoxyphene Screen (NotDetected) Ur Barbiturates Screen (NotDetected) U Tricyclic Antidepress (NotDetected) Ur Phencyclidine Scrn (NotDetected) Ur Amphetamines Screen (NotDetected) U Methamphetamines Scrn (NotDetected) U Benzodiazepines Scrn (NotDetected) Urine Cocaine Screen (NotDetected) U Marijuana (THC) Screen (NotDetected) Serum Alcohol <10 mg/dL Coronavirus (PCR) (Not Detectd) 10/29/21 10/30/21 10/30/21 Range/Units 23:28 10:07 12:30 WBC (3.8-10.6) k/uL RBC (4.30-5.90) m/uL Hgb (13.0-17.5) gm/dL Hct (39.0-53.0) % MCV (80.0-100.0) fL MCH (25.0-35.0) pg MCHC (31.0-37.0) g/dL RDW (11.5-15.5) % Plt Count (150-450) k/uL MPV Neutrophils % % Lymphocytes % % Monocytes % % Eosinophils % % Basophils % % Neutrophils # (1.3-7.7) k/uL Lymphocytes # (1.0-4.8) k/uL Monocytes # (0-1.0) k/uL Eosinophils # (0-0.7) k/uL Basophils # (0-0.2) k/uL PT (9.0-12.0) sec INR (<1.2) APTT (22.0-30.0) sec Sodium (137-145) mmol/L Potassium (3.5-5.1) mmol/L Chloride (98-107) mmol/L Carbon Dioxide (22-30) mmol/L Anion Gap mmol/L BUN (9-20) mg/dL Creatinine (0.66-1.25) mg/dL Est GFR (CKD-EPI)AfAm (>60 ml/min/1.73 sqM) Est GFR (CKD-EPI)NonAf (>60 ml/min/1.73 sqM) Glucose (74-99) mg/dL POC Glucose (mg/dL) 244 H 215 H (70-110) mg/dL POC Glu Control Room Helper ID Belval, Tram Belval, Tram Calcium (8.4-10.2) mg/dL Magnesium (1.6-2.3) mg/dL Total Bilirubin (0.2-1.3) mg/dL AST (17-59) U/L ALT (4-49) U/L Alkaline Phosphatase (38-126) U/L Creatine Kinase (55-170) U/L Troponin I (0.000-0.034) ng/mL Total Protein (6.3-8.2) g/dL Albumin (3.5-5.0) g/dL Urine Color Urine Appearance (Clear) Urine pH (5.0-8.0) Ur Specific [place] (1.001-1.035) Urine Protein (Negative) Urine Glucose (UA) (Negative) Urine Ketones (Negative) Urine Blood (Negative) Urine Nitrite (Negative) Urine Bilirubin (Negative) Urine Urobilinogen (<2.0) mg/dL Ur Leukocyte Esterase (Negative) Urine Opiates Screen (NotDetected) Ur Oxycodone Screen (NotDetected) Urine Methadone Screen (NotDetected) Ur Propoxyphene Screen (NotDetected) Ur Barbiturates Screen (NotDetected) U Tricyclic Antidepress (NotDetected) Ur Phencyclidine Scrn (NotDetected) Ur Amphetamines Screen (NotDetected) U Methamphetamines Scrn (NotDetected) U Benzodiazepines Scrn (NotDetected) Urine Cocaine Screen (NotDetected) U Marijuana (THC) Screen (NotDetected) Serum Alcohol mg/dL Coronavirus (PCR) Not Detected (Not Detectd) 10/30/21 10/30/21 10/30/21 Range/Units 17:35 18:58 20:53 WBC (3.8-10.6) k/uL RBC (4.30-5.90) m/uL Hgb (13.0-17.5) gm/dL Hct (39.0-53.0) % MCV (80.0-100.0) fL MCH (25.0-35.0) pg MCHC (31.0-37.0) g/dL RDW (11.5-15.5) % Plt Count (150-450) k/uL MPV Neutrophils % % Lymphocytes % % Monocytes % % Eosinophils % % Basophils % % Neutrophils # (1.3-7.7) k/uL Lymphocytes # (1.0-4.8) k/uL Monocytes # (0-1.0) k/uL Eosinophils # (0-0.7) k/uL Basophils # (0-0.2) k/uL PT (9.0-12.0) sec INR (<1.2) APTT (22.0-30.0) sec Sodium (137-145) mmol/L Potassium (3.5-5.1) mmol/L Chloride (98-107) mmol/L Carbon Dioxide (22-30) mmol/L Anion Gap mmol/L BUN (9-20) mg/dL Creatinine (0.66-1.25) mg/dL Est GFR (CKD-EPI)AfAm (>60 ml/min/1.73 sqM) Est GFR (CKD-EPI)NonAf (>60 ml/min/1.73 sqM) Glucose (74-99) mg/dL POC Glucose (mg/dL) 260 H 242 H 225 H (70-110) mg/dL POC Glu Control Room Helper Tram Soler Kathryn June, Elizabeth Calcium (8.4-10.2) mg/dL Magnesium (1.6-2.3) mg/dL Total Bilirubin (0.2-1.3) mg/dL AST (17-59) U/L ALT (4-49) U/L Alkaline Phosphatase (38-126) U/L Creatine Kinase (55-170) U/L Troponin I (0.000-0.034) ng/mL Total Protein (6.3-8.2) g/dL Albumin (3.5-5.0) g/dL Urine Color Urine Appearance (Clear) Urine pH (5.0-8.0) Ur Specific [place] (1.001-1.035) Urine Protein (Negative) Urine Glucose (UA) (Negative) Urine Ketones (Negative) Urine Blood (Negative) Urine Nitrite (Negative) Urine Bilirubin (Negative) Urine Urobilinogen (<2.0) mg/dL Ur Leukocyte Esterase (Negative) Urine Opiates Screen (NotDetected) Ur Oxycodone Screen (NotDetected) Urine Methadone Screen (NotDetected) Ur Propoxyphene Screen (NotDetected) Ur Barbiturates Screen (NotDetected) U Tricyclic Antidepress (NotDetected) Ur Phencyclidine Scrn (NotDetected) Ur Amphetamines Screen (NotDetected) U Methamphetamines Scrn (NotDetected) U Benzodiazepines Scrn (NotDetected) Urine Cocaine Screen (NotDetected) U Marijuana (THC) Screen (NotDetected) Serum Alcohol mg/dL Coronavirus (PCR) (Not Detectd) 10/31/21 10/31/21 10/31/21 Range/Units 12:05 17:21 20:07 WBC (3.8-10.6) k/uL RBC (4.30-5.90) m/uL Hgb (13.0-17.5) gm/dL Hct (39.0-53.0) % MCV (80.0-100.0) fL MCH (25.0-35.0) pg MCHC (31.0-37.0) g/dL RDW (11.5-15.5) % Plt Count (150-450) k/uL MPV Neutrophils % % Lymphocytes % % Monocytes % % Eosinophils % % Basophils % % Neutrophils # (1.3-7.7) k/uL Lymphocytes # (1.0-4.8) k/uL Monocytes # (0-1.0) k/uL Eosinophils # (0-0.7) k/uL Basophils # (0-0.2) k/uL PT (9.0-12.0) sec INR (<1.2) APTT (22.0-30.0) sec Sodium (137-145) mmol/L Potassium (3.5-5.1) mmol/L Chloride (98-107) mmol/L Carbon Dioxide (22-30) mmol/L Anion Gap mmol/L BUN (9-20) mg/dL Creatinine (0.66-1.25) mg/dL Est GFR (CKD-EPI)AfAm (>60 ml/min/1.73 sqM) Est GFR (CKD-EPI)NonAf (>60 ml/min/1.73 sqM) Glucose (74-99) mg/dL POC Glucose (mg/dL) 233 H 296 H 266 H (70-110) mg/dL POC Glu Control Room Helper RALEIGH Fofana, Debbie Fofana, Debbie Dutta, Maria Calcium (8.4-10.2) mg/dL Magnesium (1.6-2.3) mg/dL Total Bilirubin (0.2-1.3) mg/dL AST (17-59) U/L ALT (4-49) U/L Alkaline Phosphatase (38-126) U/L Creatine Kinase (55-170) U/L Troponin I (0.000-0.034) ng/mL Total Protein (6.3-8.2) g/dL Albumin (3.5-5.0) g/dL Urine Color Urine Appearance (Clear) Urine pH (5.0-8.0) Ur Specific [place] (1.001-1.035) Urine Protein (Negative) Urine Glucose (UA) (Negative) Urine Ketones (Negative) Urine Blood (Negative) Urine Nitrite (Negative) Urine Bilirubin (Negative) Urine Urobilinogen (<2.0) mg/dL Ur Leukocyte Esterase (Negative) Urine Opiates Screen (NotDetected) Ur Oxycodone Screen (NotDetected) Urine Methadone Screen (NotDetected) Ur Propoxyphene Screen (NotDetected) Ur Barbiturates Screen (NotDetected) U Tricyclic Antidepress (NotDetected) Ur Phencyclidine Scrn (NotDetected) Ur Amphetamines Screen (NotDetected) U Methamphetamines Scrn (NotDetected) U Benzodiazepines Scrn (NotDetected) Urine Cocaine Screen (NotDetected) U Marijuana (THC) Screen (NotDetected) Serum Alcohol mg/dL Coronavirus (PCR) (Not Detectd) 11/01/21 11/01/21 11/01/21 Range/Units 09:06 12:28 17:57 WBC (3.8-10.6) k/uL RBC (4.30-5.90) m/uL Hgb (13.0-17.5) gm/dL Hct (39.0-53.0) % MCV (80.0-100.0) fL MCH (25.0-35.0) pg MCHC (31.0-37.0) g/dL RDW (11.5-15.5) % Plt Count (150-450) k/uL MPV Neutrophils % % Lymphocytes % % Monocytes % % Eosinophils % % Basophils % % Neutrophils # (1.3-7.7) k/uL Lymphocytes # (1.0-4.8) k/uL Monocytes # (0-1.0) k/uL Eosinophils # (0-0.7) k/uL Basophils # (0-0.2) k/uL PT (9.0-12.0) sec INR (<1.2) APTT (22.0-30.0) sec Sodium (137-145) mmol/L Potassium (3.5-5.1) mmol/L Chloride (98-107) mmol/L Carbon Dioxide (22-30) mmol/L Anion Gap mmol/L BUN (9-20) mg/dL Creatinine (0.66-1.25) mg/dL Est GFR (CKD-EPI)AfAm (>60 ml/min/1.73 sqM) Est GFR (CKD-EPI)NonAf (>60 ml/min/1.73 sqM) Glucose (74-99) mg/dL POC Glucose (mg/dL) 185 H 349 H 234 H (70-110) mg/dL POC Glu Control Room Helper ID Debbie Fofana, Debbie Acevedo Calcium (8.4-10.2) mg/dL Magnesium (1.6-2.3) mg/dL Total Bilirubin (0.2-1.3) mg/dL AST (17-59) U/L ALT (4-49) U/L Alkaline Phosphatase (38-126) U/L Creatine Kinase (55-170) U/L Troponin I (0.000-0.034) ng/mL Total Protein (6.3-8.2) g/dL Albumin (3.5-5.0) g/dL Urine Color Urine Appearance (Clear) Urine pH (5.0-8.0) Ur Specific [place] (1.001-1.035) Urine Protein (Negative) Urine Glucose (UA) (Negative) Urine Ketones (Negative) Urine Blood (Negative) Urine Nitrite (Negative) Urine Bilirubin (Negative) Urine Urobilinogen (<2.0) mg/dL Ur Leukocyte Esterase (Negative) Urine Opiates Screen (NotDetected) Ur Oxycodone Screen (NotDetected) Urine Methadone Screen (NotDetected) Ur Propoxyphene Screen (NotDetected) Ur Barbiturates Screen (NotDetected) U Tricyclic Antidepress (NotDetected) Ur Phencyclidine Scrn (NotDetected) Ur Amphetamines Screen (NotDetected) U Methamphetamines Scrn (NotDetected) U Benzodiazepines Scrn (NotDetected) Urine Cocaine Screen (NotDetected) U Marijuana (THC) Screen (NotDetected) Serum Alcohol mg/dL Coronavirus (PCR) (Not Detectd) 11/02/21 11/02/21 11/02/21 Range/Units 00:28 08:29 12:01 WBC (3.8-10.6) k/uL RBC (4.30-5.90) m/uL Hgb (13.0-17.5) gm/dL Hct (39.0-53.0) % MCV (80.0-100.0) fL MCH (25.0-35.0) pg MCHC (31.0-37.0) g/dL RDW (11.5-15.5) % Plt Count (150-450) k/uL MPV Neutrophils % % Lymphocytes % % Monocytes % % Eosinophils % % Basophils % % Neutrophils # (1.3-7.7) k/uL Lymphocytes # (1.0-4.8) k/uL Monocytes # (0-1.0) k/uL Eosinophils # (0-0.7) k/uL Basophils # (0-0.2) k/uL PT (9.0-12.0) sec INR (<1.2) APTT (22.0-30.0) sec Sodium (137-145) mmol/L Potassium (3.5-5.1) mmol/L Chloride (98-107) mmol/L Carbon Dioxide (22-30) mmol/L Anion Gap mmol/L BUN (9-20) mg/dL Creatinine (0.66-1.25) mg/dL Est GFR (CKD-EPI)AfAm (>60 ml/min/1.73 sqM) Est GFR (CKD-EPI)NonAf (>60 ml/min/1.73 sqM) Glucose (74-99) mg/dL POC Glucose (mg/dL) 251 H 275 H 231 H (70-110) mg/dL POC Glu Control Room Helper ID Torey Corbin, Diya Mccartney Calcium (8.4-10.2) mg/dL Magnesium (1.6-2.3) mg/dL Total Bilirubin (0.2-1.3) mg/dL AST (17-59) U/L ALT (4-49) U/L Alkaline Phosphatase (38-126) U/L Creatine Kinase (55-170) U/L Troponin I (0.000-0.034) ng/mL Total Protein (6.3-8.2) g/dL Albumin (3.5-5.0) g/dL Urine Color Urine Appearance (Clear) Urine pH (5.0-8.0) Ur Specific [place] (1.001-1.035) Urine Protein (Negative) Urine Glucose (UA) (Negative) Urine Ketones (Negative) Urine Blood (Negative) Urine Nitrite (Negative) Urine Bilirubin (Negative) Urine Urobilinogen (<2.0) mg/dL Ur Leukocyte Esterase (Negative) Urine Opiates Screen (NotDetected) Ur Oxycodone Screen (NotDetected) Urine Methadone Screen (NotDetected) Ur Propoxyphene Screen (NotDetected) Ur Barbiturates Screen (NotDetected) U Tricyclic Antidepress (NotDetected) Ur Phencyclidine Scrn (NotDetected) Ur Amphetamines Screen (NotDetected) U Methamphetamines Scrn (NotDetected) U Benzodiazepines Scrn (NotDetected) Urine Cocaine Screen (NotDetected) U Marijuana (THC) Screen (NotDetected) Serum Alcohol mg/dL Coronavirus (PCR) (Not Detectd) 11/02/21 11/02/21 11/02/21 Range/Units 12:18 12:18 12:18 WBC 8.2 (3.8-10.6) k/uL RBC 3.40 L (4.30-5.90) m/uL Hgb 10.8 L (13.0-17.5) gm/dL Hct 32.6 L (39.0-53.0) % MCV 95.8 (80.0-100.0) fL MCH 31.7 (25.0-35.0) pg MCHC 33.1 (31.0-37.0) g/dL RDW 13.2 (11.5-15.5) % Plt Count 164 (150-450) k/uL MPV 9.7 Neutrophils % 70 % Lymphocytes % 20 % Monocytes % 5 % Eosinophils % 3 % Basophils % 0 % Neutrophils # 5.7 (1.3-7.7) k/uL Lymphocytes # 1.7 (1.0-4.8) k/uL Monocytes # 0.4 (0-1.0) k/uL Eosinophils # 0.3 (0-0.7) k/uL Basophils # 0.0 (0-0.2) k/uL PT (9.0-12.0) sec INR (<1.2) APTT (22.0-30.0) sec Sodium 134 L (137-145) mmol/L Potassium 5.1 (3.5-5.1) mmol/L Chloride 103 (98-107) mmol/L Carbon Dioxide 25 (22-30) mmol/L Anion Gap 6 mmol/L BUN 53 H (9-20) mg/dL Creatinine 1.09 (0.66-1.25) mg/dL Est GFR (CKD-EPI)AfAm 83 (>60 ml/min/1.73 sqM) Est GFR (CKD-EPI)NonAf 71 (>60 ml/min/1.73 sqM) Glucose 255 H (74-99) mg/dL POC Glucose (mg/dL) (70-110) mg/dL POC Glu Control Room Helper ID Calcium 8.5 (8.4-10.2) mg/dL Magnesium 2.0 (1.6-2.3) mg/dL Total Bilirubin 0.6 (0.2-1.3) mg/dL AST 20 (17-59) U/L ALT 18 (4-49) U/L Alkaline Phosphatase 63 (38-126) U/L Creatine Kinase 102 (55-170) U/L Troponin I 0.014 (0.000-0.034) ng/mL Total Protein 6.0 L (6.3-8.2) g/dL Albumin 3.6 (3.5-5.0) g/dL Urine Color Urine Appearance (Clear) Urine pH (5.0-8.0) Ur Specific [place] (1.001-1.035) Urine Protein (Negative) Urine Glucose (UA) (Negative) Urine Ketones (Negative) Urine Blood (Negative) Urine Nitrite (Negative) Urine Bilirubin (Negative) Urine Urobilinogen (<2.0) mg/dL Ur Leukocyte Esterase (Negative) Urine Opiates Screen (NotDetected) Ur Oxycodone Screen (NotDetected) Urine Methadone Screen (NotDetected) Ur Propoxyphene Screen (NotDetected) Ur Barbiturates Screen (NotDetected) U Tricyclic Antidepress (NotDetected) Ur Phencyclidine Scrn (NotDetected) Ur Amphetamines Screen (NotDetected) U Methamphetamines Scrn (NotDetected) U Benzodiazepines Scrn (NotDetected) Urine Cocaine Screen (NotDetected) U Marijuana (THC) Screen (NotDetected) Serum Alcohol mg/dL Coronavirus (PCR) (Not Detectd) Disposition Clinical Impression: Delusions, Acute psychosis, Paranoia, Encounter for psychiatric assessment, Chest pain, Unstable angina Disposition: ADMITTED IP TO THIS HOSP Condition: Fair Referrals: OZIEL ACKERMAN DO [Primary Care Provider] - 1-2 days
[2021-11-02] MEDS ORDERED: HEPARIN SOD,PORK IN 0.45% NACL 25,000 UNIT in 0.45% NACL 1 250ML.BAG IV SCH (13:45)
[2021-11-02] MEDS ORDERED: ALBUTEROL INHALER 60 PUFF/8 GM INHALER (MHU) INHALATION PRN (13:47)
[2021-11-02] MEDS: SODIUM CHLORIDE 0.9% 1,000 ML IV SCH (14:00)
--- NOTE | 2021-11-02 14:13 | P.HPIM ---
History of Present Illness H&P Date: 11/02/21 Chief Complaint: Chest pain 66-year-old man with medical history multivessel CAD with chronic total occlusion of the mid RCA as well as 80% proximal RCA, mild LAD, mild left c ircumflex disease as noted on cardiac catheterization in February 2018, hypertension/hyperlipidemia, diabetes, ischemic cardiomyopathy with ejection fraction of 35-40% as noted on echo in July 2021 presented initially to the emergency room with psychosis/delirium, and was subsequently admitted to [facility] after noting chest pain to the emergency room nurse today. Patient tells me that his chest pain is gone at the time my evaluation, after taking 2 of his nitro sublingual pills. He says this pain is pressure-like with radiation down his left arm and similar nature to when he had [place] in the past. Patient appears to have a logical and coherent conversation, however, intermittently throws and delusions about believing that [facility] is trying to kill him and that he start multiple times as a consequence of the not paying for insurance. He was seen by EPS 3 days ago who recommended the patient meets criteria for inpatient hospitalization for mental health purposes. However, the emergency room nurse noted today the patient complained of chest pain as described, prompting repeat EKG and repeat troponin. EKG appears to have normal sinus rhythm with right bundle branch block, similar nature to his previous EKG. Troponin was negative. In the emergency room, patient is afebrile, 148/78, heart rate 78, 97% on 2 L nasal cannula. CBC shows mild anemia to baseline of 10.8. Chemistries show mildly low sodium at 134, mildly elevated BUN at 53, creatinine is 1.1. LFTs are unremarkable. Troponin was 0.014. Brain computed tomography scan shows asymmetric enlargement of the S of the hormones of the right ventricle consistent with old infarct did not change compared to old exam. Chest x-ray shows cardiomegaly, but no evidence of pleural effusion focal consolidation or vascular congestion. All Systems reviewed and pertinent positives and negatives noted in HPI, all other symptoms are negative Gen: in no apparent distress, resting comfortably in bed Eyes: PERRL, no scleral injection or icterus HENT: normocephalic, atraumatic, good hearing acuity, moist mucous membranes Neck: no tracheal deviation, full range of motion Resp: good air exchange, breathing comfortably with no accessory muscle use, no tactile fremitus, clear to auscultation bilaterally CVS: good distal perfusion x 4, no pitting edema, regular rate and rhythm GI: soft, no tenderness to palpation, periumbilical area, ND, no hepatosplenomegaly : no suprapubic tenderness, no CVAT, nunez catheter not present MSK: no clubbing, no cyanosis, no noted contractures of extremities Skin: no noted rashes, petechiae; temperature of skin is appropriate Neuro: moving all extremities without signs of weakness, CN II-XII intact Psych: cooperative, euthymic mood, insight and judgment intact Labs and Imaging reviewed as above Assessment/plan: Atypical chest pain History multivessel CAD (Unlikely to represent acute coronary syndrome, continue maximal medical therapy with outpatient follow-up for cardiology and CT surgery evaluation if cardiology agrees) -Admit patient to observation, telemetry -Cardiology consult -Trend troponins -EKG/nitro when necessary -Resume home aspirin, statin, Plavix -Resume home Imdur, carvedilol -Echocardiogram will not be repeated at this time due to recent image unless requested by cardiology Psychosis -Psychiatry consult -Patient is petitioned, requires one-to-one sitter with suicide precautions Chronic systolic heart failure secondary to ischemic heart myopathy, EF 35-40% Hypertension Hyperlipidemia Diabetes type 2 -Home medications reviewed and reconciled Patient is full code DVT prophylaxis with heparin 3 times a day Past Medical History Past Medical History: Cancer, Heart Failure, Diabetes Mellitus Additional Past Medical History / Comment(s): states half his brain is gone, brain cancer Last Myocardial Infarction Date:: 2020 History of Any Multi-Drug Resistant Organisms: None Reported Past Surgical History: Appendectomy, Tonsillectomy Additional Past Surgical History / Comment(s): cataracts, vasectomy, Past Anesthesia/Blood Transfusion Reactions: No Reported Reaction Past Psychological History: No Psychological Hx Reported Smoking Status: Former smoker Past Alcohol Use History: None Reported Past Drug Use History: None Reported - Past Family History Father Additional Family Medical History / Comment(s): Father had multiple MIs and from one at the age of 51 yrs. Mother Additional Family Medical History / Comment(s): Mother had a bad heart. Medications and Allergies Home Medications Medication Instructions Recorded Confirmed Type Aspirin EC [Ecotrin Low Dose] 81 mg PO DAILY 01/12/19 10/29/21 History Atorvastatin [Lipitor] 80 mg PO HS 10/03/19 07/20/22 History Albuterol Inhaler [Ventolin Hfa 1 - 2 puff INHALATION RT-Q4H PRN 07/28/21 10/29/21 History Inhaler] Clopidogrel Bisulfate [Plavix] 75 mg PO DAILY 07/28/21 10/29/21 History Ferrous Sulfate [Iron (65 MG 325 mg PO DAILY 07/28/21 10/29/21 History Elemental)] Furosemide [Lasix] 40 mg PO DAILY 07/28/21 10/29/21 History Insulin Aspart (Niacinamide) 10 units SQ BID 07/28/21 10/29/21 History [Fiasp 100 Unit/ml Flextouch Pen] Ipratropium-Albuterol Nebulize 3 ml INHALATION RT-QID 07/28/21 10/29/21 History [Duoneb 0.5 mg-3 mg/3 ml Soln] Isosorbide Mononitrate ER [Imdur] 30 mg PO DAILY 07/28/21 10/29/21 History Lactulose [Cephulac] 20 gm PO DAILY 07/28/21 10/29/21 History Losartan [Cozaar] 25 mg PO DAILY 07/28/21 10/29/21 History carvediloL [Coreg] 12.5 mg PO BID 07/28/21 10/29/21 History traMADol HCL [Ultram] 50 mg PO Q6HR PRN 07/28/21 10/29/21 History Insulin Glargine,Hum.rec.anlog 50 unit SQ DAILY 10/29/21 10/29/21 History [Basaglar Kwikpen U-100] Allergies Allergy/AdvReac Type Severity Reaction Status Date / Time No Known Allergies Allergy Verified 10/29/21 18:20 Physical Exam Osteopathic Statement: *. No significant issues noted on an osteopathic structural exam other than those noted in the History and Physical/Consult. Vitals: Vital Signs Pulse Resp BP Pulse Ox 11/02/21 12:11 78 18 148/78 97 11/02/21 08:57 86 18 164/85 99 Results CBC & Chem 7: 11/02/21 12:18 11/02/21 12:18 Labs: Abnormal Lab Results - Last 24 Hours (Table) 11/01/21 11/02/21 11/02/21 Range/Units 17:57 00:28 08:29 RBC (4.30-5.90) m/uL Hgb (13.0-17.5) gm/dL Hct (39.0-53.0) % Sodium (137-145) mmol/L BUN (9-20) mg/dL Glucose (74-99) mg/dL POC Glucose (mg/dL) 234 H 251 H 275 H (70-110) mg/dL Total Protein (6.3-8.2) g/dL 11/02/21 11/02/21 11/02/21 Range/Units 12:01 12:18 12:18 RBC 3.40 L (4.30-5.90) m/uL Hgb 10.8 L (13.0-17.5) gm/dL Hct 32.6 L (39.0-53.0) % Sodium 134 L (137-145) mmol/L BUN 53 H (9-20) mg/dL Glucose 255 H (74-99) mg/dL POC Glucose (mg/dL) 231 H (70-110) mg/dL Total Protein 6.0 L (6.3-8.2) g/dL
[2021-11-02 16:47] LABS: Glucose,Whole Blood 243 mg/dL (70-110)
[2021-11-02] MEDS: HEPARIN SODIUM,PORCINE/PF 5,000 UNIT/0.5 ML SYRINGE SQ SCH (16:54)
[2021-11-02] MEDS ORDERED: NITROGLYCERIN OINT 1 INCH/GM PACKET TOPICAL SCH (18:00)
[2021-11-02] MEDS: ALBUTEROL NEBULIZED 2.5 MG/3 ML INHALATION PRN (20:17)
[2021-11-02] MEDS: NITROGLYCERIN SL TABS 0.4 MG TAB SUBLINGUAL PRN ×2 (20:51→20:58)
[2021-11-02] MEDS ORDERED: INSULIN DETEMIR (LEVEMIR) 100 UNIT/ML SYR SQ SCH (21:00)
[2021-11-02 21:57] LABS: Glucose,Whole Blood 192 mg/dL (70-110)
[2021-11-03] MEDS: HEPARIN SODIUM,PORCINE/PF 5,000 UNIT/0.5 ML SYRINGE SQ SCH ×2 (00:55→08:39)
[2021-11-03 07:08] LABS: Glucose,Whole Blood 152 mg/dL (70-110)
[2021-11-03 07:52] VITALS: RESP 18
[2021-11-03] MEDS: SODIUM CHLORIDE 0.9% 1,000 ML IV SCH ×2 (07:56→08:39)
[2021-11-03] MEDS ORDERED: carvediloL 12.5 MG TAB PO SCH (08:30)
[2021-11-03] MEDS: ISOSORBIDE MONONITRATE ER 30 MG TAB.ER.24H PO SCH (08:38)
[2021-11-03] MEDS: INSULIN ASPART (NovoLOG) 100 UNIT/ML VIAL SQ SCH ×3 (08:38→12:24)
[2021-11-03] MEDS: LOSARTAN 25 MG TAB PO SCH (08:38)
[2021-11-03] MEDS: CLOPIDOGREL 75 MG TAB PO SCH (08:38)
[2021-11-03] MEDS: FERROUS SULFATE 325 MG TAB PO SCH (08:38)
[2021-11-03] MEDS: ASPIRIN 81 MG PO SCH (08:38)
[2021-11-03] MEDS: FUROSEMIDE 40 MG TAB PO SCH (08:38)
[2021-11-03] MEDS: LACTULOSE 20 GM/30 ML CUP PO SCH (08:39)
[2021-11-03] MEDS: carvediloL 12.5 MG TAB PO SCH (08:43)
[2021-11-03] MEDS ORDERED: ASPIRIN 325 MG TAB PO SCH (09:00)
[2021-11-03 09:11] LABS: Basophils # (A) 0.04 X 10*3/uL (0.00-0.10); Basophils % (A) 0.5 %; Eosinophils # (A) 0.31 X 10*3/uL (0.04-0.35); HGB 9.9 g/dL (13.0-17.0); Immature Grans, Automated 0.4 %; Lymphocytes # (A) 2.38 X 10*3/uL (0.90-5.00); Lymphocytes % (A) 30.6 %; MCH 31.6 pg (27.0-32.0); MCV 95.8 fL (80.0-97.0); Mean Platelet Volume 11.5 fL (9.5-12.2); Monocytes # (A) 0.59 X 10*3/uL (0.20-1.00); Monocytes % (A) 7.6 %; NRBC Per 100 WBC 0 /100 WBCS (0.0-0.0); Neutrophils # (A) 4.43 X 10*3/uL (1.80-7.70); Neutrophils % (A) 56.9 %; Platelet Count 142 X 10*3/uL (140-440); RBC 3.13 X 10*6/uL (4.40-5.60); RDW 13.3 % (11.5-14.5); WBC 7.78 X 10*3/uL (4.50-10.00)
[2021-11-03 09:22] LABS: African American GFR (CKD) 73.6 (60.0-200.0); BUN/Creat Ratio 47.08 Ratio (12.00-20.00); Blood Urea Nitrogen 56.5 mg/dL (9.0-27.0); Calcium 8.7 mg/dL (8.7-10.3); Carbon Dioxide 22.2 mmol/L (20.0-27.5); Chloride 102 mmol/L (96-109); Chol/HDL Ratio 3.04 Ratio; Glucose 149 mg/dL (70-110); LDL Cholesterol,Calculated 50.2 mg/dL (0.0-131.0); Magnesium 2.2 mg/dL (1.5-2.4); Non-African American GFR(CKD) 63.5 (60.0-200.0); Potassium 4.9 mmol/L (3.5-5.5); Sodium 135 mmol/L (135-145); VLDL Calculation 17.62 mg/dL (5.00-40.00)
--- NOTE | 2021-11-03 09:48 | P.CRDCN ---
History of Present Illness Consult date: 11/03/21 History of present illness: HISTORY OF PRESENT ILLNESS: This is a 66-year-old male with a past medical history significant for coronary artery disease, diabetes, congestive heart failure, cardiomyopathy, hypertension, hyperlipidemia, and former nicotine dependence. Patient does not follow regularly with a systems operator. However, he did see a systems operator at [facility] in 2018. We have been asked to see the patient in consultation for chest pain. Patient examined at the bedside. Patient presented to the hospital with a chief complaint of chest pain with radiation into his arm. The pain did not last very long and was relieved with Nitro. He denies any SOB. Denies nausea or vomiting. The patient denies any chest pain or pressure at the time of examination. Vital signs are stable. He is to be seen by psychiatry today for possible psychosis. * EKG reveals sinus mechanism with T-wave inversions in lateral leads. * Chest xray negative for acute process * Laboratory data: WBC 7.78. Hemoglobin 9.9. Platelet count 13.3. Sodium 135. Potassium 4.9. BUN 56. Creatinine 1.2. Troponin negative 3. * Current home cardiac medications include aspirin 81 mg daily, Lipitor 80 mg at night, Plavix 75 mg daily, Lasix 40 mg daily, Imdur 30 mg daily, carvedilol 12.5 mg twice a day, and losartan 25 mg daily * Most recent echocardiogram obtained in July 2021 revealed ejection fraction 25-30% * Cardiac catheterization history: February 2018 at [facility]. Revealing ejection fraction 40%, mild diffuse disease in the LAD, mild diffuse disease in the circumflex, moderate diffuse disease in the RCA, proximal lesion with 80% stenosis, chronic total occlusion of the mid RCA with grade 3 collaterals from the left anterior coronary system via septal perforators. At that time it was recommended that the patient be managed with optimal medical therapy and would consider possible PCI of the RCA. No PCI was performed at that time. REVIEW OF SYSTEMS: At the time of my exam: CONSTITUTIONAL: Denies fever or chills. HEENT: Denies blurred vision, vision changes, or eye pain. Denies hemoptysis CARDIOVASCULAR: Denies chest pain. Denies orthopnea. Denies PND. Denies palpitations RESPIRATORY: Denies shortness of breath. GASTROINTESTINAL: Denies abdominal pain. Denies nausea or vomiting. HEMATOLOGIC: Denies bleeding disorders. GENITOURINARY: Denies any blood in urine. SKIN: Denies pruitis. Denies rash. PHYSICAL EXAM: VITAL SIGNS: Reviewed. GENERAL: Well-developed in no acute distress. HEENT: Head is normocephalic. Pupils are equal, round. Sclerae anicteric. Mucous membranes of the mouth are moist. Neck supple. No JVD or thyromegaly LUNGS: Respirations even and unlabored. Lungs essentially clear to auscultation bilaterally. HEART: Regular rate and rhythm. S1 and S2 heard. ABDOMEN: Soft. Nondistended. Nontender. EXTREMITIES: Normal range of motion. No clubbing or cyanosis. Peripheral pulses intact. No lower extremity edema NEUROLOGIC: Awake and alert. Oriented x 3. ASSESSMENT: Chest pain, troponin negative x 3 Psychosis Coronary artery disease with details as above from cardiac catheterization performed in 2018 Hypertension Hyperlipidemia Ischemic cardiomyopathy Chronic congestive heart failure with reduced ejection fraction, currently euvolemic Diabetes Former nicotine dependence PLAN: No need to repeat echocardiogram this was performed in July 2021 Resume home cardiac medications Increase carvedilol to 25 mg twice a day Per Dr. Wright, no plans for stress testing or cardiac catheterization at this time. He may be discharged home today in follow-up with his primary cardiology just out of [facility]. Nurse practitioner note has been reviewed by physician. Signing provider agrees with the documented findings, assessment, and plan of care. Past Medical History Past Medical History: Cancer, Heart Failure, Diabetes Mellitus Additional Past Medical History / Comment(s): states half his brain is gone, brain cancer Last Myocardial Infarction Date:: 2020 History of Any Multi-Drug Resistant Organisms: None Reported Past Surgical History: Appendectomy, Tonsillectomy Additional Past Surgical History / Comment(s): cataracts, vasectomy, Past Anesthesia/Blood Transfusion Reactions: No Reported Reaction Past Psychological History: Depression Additional Psychological History / Comment(s): Pt resides alone. He states he goes to [facility] 3 times a week for physical therapy and has meals while he is there. He also gets MOW. He has home oxygen and a nebulizer. He receives home care thru [facility]. He can drive. Smoking Status: Former smoker Past Alcohol Use History: None Reported Additional Past Alcohol Use History / Comment(s): Pt started smoking in 1983 nd quit in 1989. Pt states he was a past heavy drinker but quit drinking in 1998. Past Drug Use History: None Reported - Past Family History Father Additional Family Medical History / Comment(s): Father had multiple MIs and from one at the age of 51 yrs. Mother Additional Family Medical History / Comment(s): Mother had a bad heart. Medications and Allergies Home Medications Medication Instructions Recorded Confirmed Type Aspirin EC [Ecotrin Low Dose] 81 mg PO DAILY 01/12/19 10/29/21 History Atorvastatin [Lipitor] 80 mg PO HS 01/12/19 10/29/21 History Albuterol Inhaler [Ventolin Hfa 1 - 2 puff INHALATION RT-Q4H PRN 07/28/21 10/29/21 History Inhaler] Clopidogrel Bisulfate [Plavix] 75 mg PO DAILY 07/28/21 10/29/21 History Ferrous Sulfate [Iron (65 MG 325 mg PO DAILY 07/28/21 10/29/21 History Elemental)] Furosemide [Lasix] 40 mg PO DAILY 07/28/21 10/29/21 History Insulin Aspart (Niacinamide) 10 units SQ BID 07/28/21 10/29/21 History [Fiasp 100 Unit/ml Flextouch Pen] Ipratropium-Albuterol Nebulize 3 ml INHALATION RT-QID 07/28/21 10/29/21 History [Duoneb 0.5 mg-3 mg/3 ml Soln] Isosorbide Mononitrate ER [Imdur] 30 mg PO DAILY 07/28/21 10/29/21 History Lactulose [Cephulac] 20 gm PO DAILY 07/28/21 10/29/21 History Losartan [Cozaar] 25 mg PO DAILY 07/28/21 10/29/21 History carvediloL [Coreg] 12.5 mg PO BID 07/28/21 10/29/21 History traMADol HCL [Ultram] 50 mg PO Q6HR PRN 07/28/21 10/29/21 History Insulin Glargine,Hum.rec.anlog 50 unit SQ DAILY 10/29/21 10/29/21 History [Basaglar Kwikpen U-100] Allergies Allergy/AdvReac Type Severity Reaction Status Date / Time No Known Allergies Allergy Verified 10/29/21 18:20 Physical Exam Vitals: Vital Signs Temp Pulse Pulse Resp BP BP BP 11/03/21 07:05 98.0 F 71 18 137/80 11/03/21 02:00 97.8 F 68 20 153/77 11/02/21 21:02 97.7 F 89 22 126/65 11/02/21 20:27 100 11/02/21 20:17 84 11/02/21 20:00 98.1 F 81 20 155/79 11/02/21 17:28 98.2 F 79 20 169/70 11/02/21 15:00 72 16 142/76 11/02/21 12:11 78 18 148/78 Pulse Ox 11/03/21 07:05 100 11/03/21 02:00 98 11/02/21 21:02 98 11/02/21 20:27 11/02/21 20:17 11/02/21 20:00 96 11/02/21 17:28 98 11/02/21 15:00 96 11/02/21 12:11 97 Intake and Output 11/02/21 11/03/21 11/03/21 22:59 06:59 14:59 Other: Voiding Method Toilet Toilet Toilet # Voids 1 Weight 114.759 kg Results 11/03/21 03:48 11/03/21 03:48 Cardiac Enzymes 11/02/21 11/02/21 11/02/21 Range/Units 12:18 12:18 17:11 AST 20 (17-59) U/L Troponin I 0.014 0.012 (0.000-0.034) ng/mL 11/02/21 Range/Units 21:19 AST (17-59) U/L Troponin I 0.018 (0.000-0.034) ng/mL Lipids 11/03/21 Range/Units 03:48 Triglycerides 88.10 (0.00-149.00) mg/dL Cholesterol 101.00 (0.00-200.00) mg/dL HDL Cholesterol 33.20 L (40.00-60.00) mg/dL Cholesterol/HDL Ratio 3.04 Ratio CBC 11/02/21 11/03/21 Range/Units 12:18 03:48 WBC 8.2 7.78 (3.8-10.6) k/uL RBC 3.40 L 3.13 L (4.30-5.90) m/uL Hgb 10.8 L 9.9 L (13.0-17.5) gm/dL Hct 32.6 L 30.0 L (39.0-53.0) % Plt Count 164 142 (150-450) k/uL Comprehensive Metabolic Panel 11/02/21 11/03/21 Range/Units 12:18 03:48 Sodium 134 L 135 (137-145) mmol/L Potassium 5.1 4.9 (3.5-5.1) mmol/L Chloride 103 102 (98-107) mmol/L Carbon Dioxide 25 22.2 (22-30) mmol/L BUN 53 H 56.5 H (9-20) mg/dL Creatinine 1.09 1.2 (0.66-1.25) mg/dL Glucose 255 H 149 H (74-99) mg/dL Calcium 8.5 8.7 (8.4-10.2) mg/dL AST 20 (17-59) U/L ALT 18 (4-49) U/L Alkaline Phosphatase 63 (38-126) U/L Total Protein 6.0 L (6.3-8.2) g/dL Albumin 3.6 (3.5-5.0) g/dL Current Medications Generic Name Dose Route Start Last Admin Trade Name Freq PRN Reason Stop Dose Admin Albuterol Sulfate 2.5 mg 11/02/21 14:19 11/02/21 20:17 Albuterol Nebulized 2.5 Mg/3 Ml INHALATION 2.5 mg RT-Q4H PRN Administration Shortness Of Breath Aspirin 81 mg 11/01/21 09:00 11/03/21 08:38 Aspirin 81 Mg PO 81 mg DAILY TWILA Administration Atorvastatin Calcium 80 mg 11/01/21 21:00 11/02/21 22:04 Atorvastatin 80 Mg Tab PO 80 mg HS TWILA Administration Carvedilol 25 mg 11/03/21 08:30 11/03/21 08:38 Carvedilol 12.5 Mg Tab PO 25 mg BID-W/MEALS TWILA Administration Clopidogrel Bisulfate 75 mg 11/01/21 09:00 11/03/21 08:38 Clopidogrel 75 Mg Tab PO 75 mg DAILY TWILA Administration Ferrous Sulfate 325 mg 11/01/21 09:00 11/03/21 08:38 Ferrous Sulfate 325 Mg Tab PO 325 mg DAILY TWILA Administration Furosemide 40 mg 11/01/21 09:00 11/03/21 08:38 Furosemide 40 Mg Tab PO 40 mg DAILY TWILA Administration Heparin Sodium (Porcine) 5,000 unit 11/02/21 16:00 11/03/21 08:39 Heparin Sodium,Porcine/Pf 5,000 Unit/0.5 Ml Syringe SQ 5,000 unit Q8HR TWILA Administration Sodium Chloride 1,000 mls @ 100 mls/hr 11/02/21 13:45 11/03/21 08:39 Saline 0.9% IV Not Given .Q10H TWILA Insulin Aspart 0 unit 11/01/21 09:00 11/03/21 08:39 Insulin Aspart (Novolog) 100 Unit/Ml Vial SQ 2 unit AC-TID TWILA Administration Protocol Insulin Aspart 10 unit 11/02/21 17:30 11/03/21 08:38 Insulin Aspart (Novolog) 100 Unit/Ml Vial SQ 10 unit AC-BID TWILA Administration Insulin Detemir 50 unit 11/02/21 21:00 11/02/21 22:04 Insulin Detemir (Levemir) 100 Unit/Ml Syr SQ 50 unit HS TWILA Administration Isosorbide Mononitrate 30 mg 11/01/21 09:00 11/03/21 08:38 Isosorbide Mononitrate Er 30 Mg Tab.Er.24h PO 30 mg DAILY TWILA Administration Lactulose 20 gm 11/01/21 09:00 11/03/21 08:39 Lactulose 20 Gm/30 Ml Cup PO 20 gm DAILY TWILA Administration Losartan Potassium 25 mg 11/01/21 09:00 11/03/21 08:38 Losartan 25 Mg Tab PO 25 mg DAILY TWILA Administration Nitroglycerin 0.4 mg 11/02/21 13:43 11/02/21 20:58 Nitroglycerin Sl Tabs 0.4 Mg Tab SUBLINGUAL 0.4 mg Q5M PRN Administration Chest Pain Tramadol HCl 50 mg 11/01/21 08:48 11/02/21 18:58 Tramadol 50 Mg Tab PO 50 mg Q6HR PRN Administration Pain Intake and Output 11/02/21 11/03/21 11/03/21 22:59 06:59 14:59 Other: Voiding Method Toilet Toilet Toilet # Voids 1 Weight 114.759 kg 11/03/21 03:48 11/03/21 03:48
[2021-11-03 12:03] LABS: Glucose,Whole Blood 200 mg/dL (70-110)
[2021-11-03] MEDS: ALBUTEROL NEBULIZED 2.5 MG/3 ML INHALATION PRN (12:49)
--- NOTE | 2021-11-03 14:58 | P.CN ---
Psychiatric Consult - . Consult date: 11/03/21 Consult:: 11/03/21 14:58 IDENTIFYING DATA: This patient is a , retired, 66-year-old male with significant history of depression who presents to the hospital for chest pain and psychosis. HISTORY OF PRESENT ILLNESS: The patient presented to the hospital on 11/02/2021, [facility] with concerns for psychosis/delirium. He also endorsed chest pain in the emergency department and was admitted medically for further evaluation and management of atypical chest pain. The patient was seen by EPS 3 days prior to his presentation in the hospital and was recommended for inpatient psychiatric hospitalization at a geriatric psychiatric unit. Upon evaluation by this provider on the medical floor, the patient is currently not reporting any overt delusional thought content aside from his distrust of Dr. Christine Rausch. He reports that when being evaluated by Dr. Rudd she informed him that she would benefit if he . He expresses that she was happier that he did not take any medications despite him stating that he would. Despite his paranoia towards Dr. Rausch, the patient is not endorsing any other significant delusional thought content. He is not reporting any thought inser tion, thought projection, any paranoia towards others, ideas of reference, or any other delusional themes. He is not reporting any auditory or visual hallucinations. Furthermore, it appears that his psychosis has not been affecting his general day-to-day functioning. He is vehemently denying any suicidal or homicidal ideation, intention, and/or plan. He is not reporting any significant symptoms of juan m or hypomania. Denies any increased goal-directed activity, grandiosity, or mood lability. The patient reports that he does have a significant history of carcinoma and had "a partial lobotomy." He reports that he lost half his brain because of brain cancer which had to be removed. PAST PSYCHIATRIC HISTORY: Patient has a history of depression. He reports being prescribed Tofranil in the 1980s after being depressed in the context of a divorce. Patient denies any previous psychiatric admissions. Patient denies any psychiatric outpatient follow-up. Patient denies any history of suicide attempts in the past. PAST MEDICAL HISTORY: Past Medical History: Cancer, Heart Failure, Diabetes Mellitus Additional Past Medical History / Comment(s): states half his brain is gone, brain cancer Last Myocardial Infarction Date:: 2020 History of Any Multi-Drug Resistant Organisms: None Reported Past Surgical History: Appendectomy, Tonsillectomy Additional Past Surgical History / Comment(s): cataracts, vasectomy, Past Anesthesia/Blood Transfusion Reactions: No Reported Reaction Past Psychological History: No Psychological Hx Reported Smoking Status: Former smoker Past Alcohol Use History: None Reported Past Drug Use History: None Reported ALLERGIES: NO KNOWN DRUG ALLERGIES. CHEMICAL DEPENDENCY HISTORY: Patient denies any tobacco, alcohol, marijuana, or illicit drug use. He does report a history of alcohol abuse however states that he started drinking in 1998 after going to rehabilitation twice. FAMILY PSYCHIATRIC/SUBSTANCE USE HISTORY: No reported family psychiatric history. SOCIAL HISTORY: Patient was born in [place] and raised in [place].he is as of 1982. She currently lives alone with his 2 cats. 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 He does report a history of incarceration for unpaid child support. . MENTAL STATUS EXAM: General Appearance: Patient appears to be stated age is alert, pleasant, and cooperative. Patient appears to have fair hygiene and grooming wearing hospital gown with fair eye contact. Obese body habitus. Behavior: Patient is calmly lying in bed without any agitated behavior. Good eye contact Speech: Patient's speech is fluent and nonpressured. Mood/Affect: Patient reports their mood is "feeling fine", affect is congruent and friendly Suicidality/Homicidality: Patient denies having any suicidal or homicidal ideation intent or plan. Perceptions: Patient denies any visual hallucinations and denies any auditory hallucinations Though content/process: There is no evidence of any delusional thought content and thought process is linear and goal-directed. Memory and concentration: AOX3, grossly intact for the purposes of this session. Can spell "WORLD" backwards Judgment and insight: Fair IMPRESSIONS: Delusional disorder - likely secondary to miscommunication with Dr. Rudd as well as his history of brain cancer. Currently, the patient is presenting with no imminent risk of harm to self or others and is not endorsing any other delusional thought content. Chronic CHF Atypical chest pain Hypertension Hyperlipidemia Diabetes mellitus type 2 PLAN: -At this time patient DOES NOT meet criteria for inpatient psychiatric admission. The patient is not presenting with any bizarre delusional thought content aside from his generalized distrust of Dr. Rudd which appears to be rooted in miscommunication attended patient's inability to appropriately process what is told to him due to his history of partial lobotomy. He is not presenting with any imminent risk of harm to self or others. -Delirium precautions recommended with patient including - avoiding use of narcotics and SMALL PIECE CUTTER sedatives, limit anticholinergic medications when possible, frequent re-orientation, minimize use of restraints, open window shades during the day and close them at night -Would recommend the following medication changes/additions: No medication recommendations will be made at this time -Discontinue one-to-one sitter. -Recommend outpatient psychiatric follow-up. -Psychiatry will sign off at this point, please contact with any questions. 11/03/21 14:58
[2021-11-03 15:15] VITALS: BP 121/66; PULSE 77; TEMP 97.6
--- NOTE | 2021-11-03 17:30 | P.DS ---
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 In the emergency room, patient is afebrile, 148/78, heart rate 78, 97% on 2 L nasal cannula. CBC shows mild anemia to baseline of 10.8. Chemistries show mildly low sodium at 134, mildly elevated BUN at 53, creatinine is 1.1. LFTs are unremarkable. Troponin was 0.014. Brain computed tomography scan shows asymmetric enlargement of the S of the hormones of the right ventricle consistent with old infarct did not change compared to old exam. Chest x-ray shows cardiomegaly, but no evidence of pleural effusion focal consolidation or vascular congestion. Seen and evaluated by cardiology who agree with outpatient management for chronic stable angina with close cardiology f/u with his regular physician. Trops trended negative. Psychiatry cleared patient for psychosis/delirium. Pt d/c'd home with home care. Gen: in no apparent distress, resting comfortably in bed Eyes: PERRL, no scleral injection or icterus HENT: normocephalic, atraumatic, good hearing acuity, moist mucous membranes Neck: no tracheal deviation, full range of motion Resp: good air exchange, breathing comfortably with no accessory muscle use, no tactile fremitus, clear to auscultation bilaterally CVS: good distal perfusion x 4, no pitting edema, regular rate and rhythm GI: soft, no tenderness to palpation, periumbilical area, ND, no hepatosplenomegaly : no suprapubic tenderness, no CVAT, nunez catheter not present MSK: no clubbing, no cyanosis, no noted contractures of extremities Skin: no noted rashes, petechiae; temperature of skin is appropriate Neuro: moving all extremities without signs of weakness, CN II-XII intact Psych: cooperative, euthymic mood, insight and judgment intact Patient Condition at Discharge: Good Plan - Discharge Summary Discharge Rx Participant: No New Discharge Prescriptions: Continue Atorvastatin [Lipitor] 80 mg PO HS Aspirin EC [Ecotrin Low Dose] 81 mg PO DAILY traMADol HCL [Ultram] 50 mg PO Q6HR PRN PRN Reason: Pain Losartan [Cozaar] 25 mg PO DAILY Lactulose [Cephulac] 20 gm PO DAILY Isosorbide Mononitrate ER [Imdur] 30 mg PO DAILY Ipratropium-Albuterol Nebulize [Duoneb 0.5 mg-3 mg/3 ml Soln] 3 ml INHALATION RT-QID Insulin Aspart (Niacinamide) [Fiasp 100 Unit/ml Flextouch Pen] 10 units SQ BID Furosemide [Lasix] 40 mg PO DAILY Clopidogrel Bisulfate [Plavix] 75 mg PO DAILY Albuterol Inhaler [Ventolin Hfa Inhaler] 1 - 2 puff INHALATION RT-Q4H PRN PRN Reason: Shortness Of Breath Insulin Glargine,Hum.rec.anlog [Basaglar Kwikpen U-100] 50 unit SQ DAILY Ferrous Sulfate [Iron (65 MG Elemental)] 325 mg PO DAILY Changed carvediloL [Coreg] 25 mg PO BID #120 tab Discharge Medication List Aspirin EC [Ecotrin Low Dose] 81 mg PO DAILY 01/12/19 [History] Atorvastatin [Lipitor] 80 mg PO HS 01/12/19 [History] Albuterol Inhaler [Ventolin Hfa Inhaler] 1 - 2 puff INHALATION RT-Q4H PRN 07/28/21 [History] Clopidogrel Bisulfate [Plavix] 75 mg PO DAILY 07/28/21 [History] Ferrous Sulfate [Iron (65 MG Elemental)] 325 mg PO DAILY 07/28/21 [History] Furosemide [Lasix] 40 mg PO DAILY 07/28/21 [History] Insulin Aspart (Niacinamide) [Fiasp 100 Unit/ml Flextouch Pen] 10 units SQ BID 07/28/21 [History] Ipratropium-Albuterol Nebulize [Duoneb 0.5 mg-3 mg/3 ml Soln] 3 ml INHALATION RT-QID 07/28/21 [History] Isosorbide Mononitrate ER [Imdur] 30 mg PO DAILY 07/28/21 [History] Lactulose [Cephulac] 20 gm PO DAILY 07/28/21 [History] Losartan [Cozaar] 25 mg PO DAILY 07/28/21 [History] traMADol HCL [Ultram] 50 mg PO Q6HR PRN 07/28/21 [History] Insulin Glargine,Hum.rec.anlog [Basaglar Kwikpen U-100] 50 unit SQ DAILY 10/29/21 [History] carvediloL [Coreg] 25 mg PO BID #120 tab 11/03/21 [Rx] Follow up Appointment(s)/Referral(s): Haleigh Wright MD [STAFF PHYSICIAN] - 1 Week OZIEL ACKERMAN DO [Primary Care Provider] - 1-2 days Patient Instructions/Handouts: Chest Pain (DC) Discharge Disposition: HOME WITH HOME HEALTH SERVICES
== END 2021-11-03 15:32 | disposition home health service (06) ==
LOC: EEVIPCON 15:17 → EC 15:17 → 6NMEDSUR 11-02 13:44
PROVIDERS: ADMIT Internal Medicine; ATTEND Internal Medicine
DX: R07.89 Other chest pain (principal); F23 Brief psychotic disorder; I25.82 Chronic total occlusion of coronary artery; I25.119 Atherosclerotic heart disease of native coronary artery with unspecified angina pectoris; I11.0 Hypertensive heart disease with heart failure; I50.22 Chronic systolic (congestive) heart failure; I25.5 Ischemic cardiomyopathy; E11.9 Type 2 diabetes mellitus without complications; I45.10 Unspecified right bundle-branch block; E78.5 Hyperlipidemia, unspecified; I25.2 Old myocardial infarction; F32.A Depression, unspecified; D64.9 Anemia, unspecified; E66.9 Obesity, unspecified; Z68.32 Body mass index [BMI] 32.0-32.9, adult; Z20.822 Contact with and (suspected) exposure to COVID-19; Z79.82 Long term (current) use of aspirin; Z79.02 Long term (current) use of antithrombotics/antiplatelets; Z79.4 Long term (current) use of insulin; Z79.899 Other long term (current) drug therapy; Z85.841 Personal history of malignant neoplasm of brain; Z87.891 Personal history of nicotine dependence; Z90.49 Acquired absence of other specified parts of digestive tract; Z98.49 Cataract extraction status, unspecified eye; Z98.52 Vasectomy status; Z98.890 Other specified postprocedural states; Z82.49 Family history of ischemic heart disease and other diseases of the circulatory system
CPT/HCPCS: 96372; 99285; 36415 ×3; 94640 ×2; 93005 ×2; 80061; 80053 ×2; 80048; 82550; 83735 ×2; 84484 ×2; 85025 ×3; 85610; 85730; 81003; 80306; 80320; 87635; 71046; 70450; G0378 ×2; J1644

== ENCOUNTER 2022-03-18 14:22 | Observation (INO) | payer OTHER ==
[2022-03-18 15:19] LABS: Basophils % (A) 0 %; Eosinophils # (A) 0.2 k/uL (0-0.7); Eosinophils % (A) 2 %; HCT 38.1 % (39.0-53.0); HGB 12.8 gm/dL (13.0-17.5); Lymphocytes # (A) 1.2 k/uL (1.0-4.8); Lymphocytes % (A) 11 %; MCH 31.4 pg (25.0-35.0); MCHC 33.6 g/dL (31.0-37.0); MCV 93.5 fL (80.0-100.0); Mean Platelet Volume 9.3; Monocytes # (A) 0.3 k/uL (0-1.0); Monocytes % (A) 3 %; Neutrophils # (A) 8.7 k/uL (1.3-7.7); Neutrophils % (A) 82 %; Platelet Count 137 k/uL (150-450); RBC 4.07 m/uL (4.30-5.90); RDW 13.6 % (11.5-15.5); WBC 10.6 k/uL (3.8-10.6)
[2022-03-18 15:32] LABS: Albumin 3.9 g/dL (3.5-5.0); Calcium 8.7 mg/dL (8.4-10.2); Magnesium 1.9 mg/dL (1.6-2.3); Potassium 5.8 mmol/L (3.5-5.1); Total Bilirubin 0.9 mg/dL (0.2-1.3); Total Protein 6.5 g/dL (6.3-8.2)
--- NOTE | 2022-03-18 15:45 | XR ---
EXAMINATION TYPE: XR chest 2V DATE OF EXAM: 03/18/2022 COMPARISON: Chest x-ray November 02, 2021 HISTORY: Difficulty in breathing. TECHNIQUE: Frontal and lateral views of the chest are obtained. FINDINGS: Background mild chronic emphysematous change is felt present. There is no focal air space opacity, pleural effusion, or pneumothorax seen. The cardiac silhouette size is stable and upper wade its of normal. The osseous structures are intact. IMPRESSION: No acute cardiopulmonary process. No significant change from prior.
--- NOTE | 2022-03-18 17:06 | ED ---
General Adult HPI - General Chief complaint: Chest Pain Stated complaint: hypotension Time Seen by Provider: 03/18/22 14:22 Source: patient, EMS, RN notes reviewed, old records reviewed Mode of arrival: EMS Limitations: no limitations - History of Present Illness Initial comments: This is a 66-year-old male who presents emergency Department from an outside provider. The outside provider called in for the patient arrived and indicated that the patient was having episodes of vomiting every morning and when he would get to his facility would have low blood pressure on occasion in the low for a few hours and eventually would resolve on its own as with the acute vomiting. They've been working the patient up for the vomiting and have not been able to find a source. They also felt as though his pulse was inconsistent so they wanted us to evaluate the patient. Patient himself has no symptoms. Patient denies any chest pain difficulty breathing shortness of breath per patient denies any palpitations. Patient denies any lightheadedness dizziness. Patient denies any abdominal pain. Patient denies any nausea currently. Patient does admit that he vomits almost every morning for the last 4 months. Patient denies any recent fever chills or cough. - Related Data Home Medications Medication Instructions Recorded Confirmed Aspirin EC [Ecotrin Low Dose] 81 mg PO DAILY 01/12/19 03/18/22 Atorvastatin [Lipitor] 80 mg PO HS 01/12/19 03/18/22 Albuterol Inhaler [Ventolin Hfa 1 - 2 puff INHALATION RT-Q4H PRN 07/28/21 03/18/22 Inhaler] Clopidogrel Bisulfate [Plavix] 75 mg PO DAILY 07/28/21 03/18/22 Ferrous Sulfate [Iron (65 MG 325 mg PO DAILY 07/28/21 03/18/22 Elemental)] Furosemide [Lasix] 40 mg PO DAILY 07/28/21 03/18/22 Insulin Aspart (Niacinamide) 25 units SQ BID 07/28/21 03/18/22 [Fiasp 100 Unit/ml Flextouch Pen] Ipratropium-Albuterol Nebulize 3 ml INHALATION RT-QID PRN 07/28/21 03/18/22 [Duoneb 0.5 mg-3 mg/3 ml Soln] Isosorbide Mononitrate ER [Imdur] 30 mg PO DAILY 07/28/21 03/18/22 Lactulose [Cephulac] 20 gm PO DAILY 07/28/21 03/18/22 Losartan [Cozaar] 25 mg PO DAILY 07/28/21 03/18/22 Insulin Glargine,Hum.rec.anlog 75 unit SQ HS 10/29/21 03/18/22 [Basaglar Kwikpen U-100] Famotidine [Pepcid] 20 mg PO DAILY 03/18/22 03/18/22 Sucralfate [Carafate] 1 gm PO ACHS 03/18/22 03/18/22 Previous Rx's Medication Instructions Recorded carvediloL [Coreg] 25 mg PO BID #120 tab 11/03/21 Allergies Allergy/AdvReac Type Severity Reaction Status Date / Time sacubitril [From Entresto] AdvReac made him Verified 03/18/22 15:31 hypotensive valsartan [From Entresto] AdvReac made him Verified 03/18/22 15:31 hypotensive Review of Systems ROS Statement: Those systems with pertinent positive or pertinent negative responses have been documented in the HPI. ROS Other: All systems not noted in ROS Statement are negative. Past Medical History Past Medical History: Cancer, Heart Failure, Diabetes Mellitus Additional Past Medical History / Comment(s): states half his brain is gone, brain cancer Last Myocardial Infarction Date:: 2020 History of Any Multi-Drug Resistant Organisms: None Reported Past Surgical History: Appendectomy, Tonsillectomy Additional Past Surgical History / Comment(s): cataracts, vasectomy, Past Anesthesia/Blood Transfusion Reactions: No Reported Reaction Past Psychological History: Depression Additional Psychological History / Comment(s): Pt resides alone. He states he goes to [facility] 3 times a week for physical therapy and has meals while he is there. He also gets MOW. He has home oxygen and a nebulizer. He receives home care thru [facility]. He can drive. Smoking Status: Former smoker Past Alcohol Use History: None Reported Additional Past Alcohol Use History / Comment(s): Pt started smoking in 1983 nd quit in 1989. Pt states he was a past heavy drinker but quit drinking in 1998. Past Drug Use History: None Reported - Past Family History Father Additional Family Medical History / Comment(s): Father had multiple MIs and from one at the age of 51 yrs. Mother Additional Family Medical History / Comment(s): Mother had a bad heart. General Exam - General Exam Comments Initial Comments: GENERAL: Patient is well-developed and well-nourished. Patient is nontoxic and well- hydrated and is in no acute distress. ENT: Neck is soft and supple. No significant lymphadenopathy is noted. Oropharynx is clear. Moist mucous membranes. Neck has full range of motion without eliciting any pain. EYES: The sclera were anicteric and conjunctiva were pink and moist. Extraocular movements were intact and pupils were equal round and reactive to light. Eyelids were unremarkable. PULMONARY: Unlabored respirations. Good breath sounds bilaterally. No audible rales r honchi or wheezing was noted. CARDIOVASCULAR: There is a regular rate and rhythm without any murmurs gallops or rubs. ABDOMEN: Soft and nontender with normal bowel sounds. SKIN: Skin is clear with no lesions or rashes and otherwise unremarkable. NEUROLOGIC: Patient is alert and oriented x3. Cranial nerves II through XII are grossly intact. Motor and sensory are also intact. Normal speech, volume and content. Symmetrical smile. MUSCULOSKELETAL: Normal extremities with adequate strength and full range of motion. LYMPHATICS: No significant lymphadenopathy is noted PSYCHIATRIC: Normal psychiatric evaluation. Limitations: no limitations Course Vital Signs 03/18/22 03/18/22 03/18/22 14:28 15:05 15:26 Temperature 98.1 F Pulse Rate 85 84 84 Respiratory 18 Rate Blood Pressure 105/54 93/58 121/67 O2 Sat by Pulse 98 Oximetry 03/18/22 03/18/22 15:42 16:30 Temperature Pulse Rate 87 93 Respiratory 18 Rate Blood Pressure 127/70 122/66 O2 Sat by Pulse 98 Oximetry Medical Decision Making - Medical Decision Making EKG was interpreted by myself. EKG shows sinus rhythm at 81 bpm SC interval 208 QRSs 166 QT interval 431 QTC is 469. Patient's EKG shows no ST segment elevation or depression. Patient does have a right bundle branch block. Compared this EKG to an old EKG and there were no acute abnormalities noted. Chest x-ray was interpreted by myself. Chest x-ray showed no acute a bnormalities - Lab Data Result diagrams: 03/18/22 15:10 03/18/22 15:10 Lab Results 12/07/22 12/07/22 Range/Units 15:10 15:10 WBC 10.6 (3.8-10.6) k/uL RBC 4.07 L (4.30-5.90) m/uL Hgb 12.8 L (13.0-17.5) gm/dL Hct 38.1 L (39.0-53.0) % MCV 93.5 (80.0-100.0) fL MCH 31.4 (25.0-35.0) pg MCHC 33.6 (31.0-37.0) g/dL RDW 13.6 (11.5-15.5) % Plt Count 137 L (150-450) k/uL MPV 9.3 Neutrophils % 82 % Lymphocytes % 11 % Monocytes % 3 % Eosinophils % 2 % Basophils % 0 % Neutrophils # 8.7 H (1.3-7.7) k/uL Lymphocytes # 1.2 (1.0-4.8) k/uL Monocytes # 0.3 (0-1.0) k/uL Eosinophils # 0.2 (0-0.7) k/uL Basophils # 0.0 (0-0.2) k/uL Sodium 132 L (137-145) mmol/L Potassium 5.8 H (3.5-5.1) mmol/L Chloride 100 (98-107) mmol/L Carbon Dioxide 23 (22-30) mmol/L Anion Gap 9 mmol/L BUN 52 H (9-20) mg/dL Creatinine 1.62 H (0.66-1.25) mg/dL Est GFR (CKD-EPI)AfAm 51 (>60 ml/min/1.73 sqM) Est GFR (CKD-EPI)NonAf 44 (>60 ml/min/1.73 sqM) Glucose 324 H (74-99) mg/dL Calcium 8.7 (8.4-10.2) mg/dL Magnesium 1.9 (1.6-2.3) mg/dL Total Bilirubin 0.9 (0.2-1.3) mg/dL AST 23 (17-59) U/L ALT 36 (4-49) U/L Alkaline Phosphatase 72 (38-126) U/L Total Protein 6.5 (6.3-8.2) g/dL Albumin 3.9 (3.5-5.0) g/dL Disposition Clinical Impression: Hyperkalemia, Acute renal insufficiency Disposition: ADMITTED IP TO THIS HOSP Referrals: Connor Nicholson MD [Primary Care Provider] - 1-2 days Time of Disposition: 16:50
[2022-03-18] MEDS ORDERED: ONDANSETRON 4 MG/2 ML VIAL IVP PRN (18:55)
[2022-03-18] MEDS ORDERED: NALOXONE 0.4 MG/ML 1 ML VIAL IV PRN (18:55)
[2022-03-18] MEDS ORDERED: MELATONIN 3 MG TABLET PO PRN (18:55)
[2022-03-18] MEDS ORDERED: ALBUTEROL NEBULIZED 2.5 MG/3 ML INHALATION PRN (19:25)
[2022-03-18] MEDS ORDERED: SODIUM CHLORIDE 0.9% 500 ML 500 ML IV ONE (19:31)
--- NOTE | 2022-03-18 19:33 | P.HPIM ---
History of Present Illness H&P Date: 03/18/22 Patient is a 66-year-old male with systolic congestive heart failure congestive heart failure, diabetes, prior brain cancer, and issues with hypotension who was sent to the ER by his outpatient provider. He was seen at the clinic today and they are concerned with his blood pressure was in the 80s and they felt as though his pulse was bounding and then faint every other beat. In the ER the patient underwent an extensive evaluation. On arrival his vital signs were within normal limits. Initial laboratory analysis shows a hemoglobin of 12.8, platelets 137, sodium 132, potassium 5.8, BUN 52, creatinine 1.62 (baseline creatinine 1.2), and glucose of 324. Patient seen and examined at bedside. Patient is a very poor historian and seems to have confabulation. Initially when I entered the room he told me how he had brain cancer 25% of his brain was missing. He then told me he never had a formal diagnosis of cancer they didn't know why 25% of his brain was missing. He denies any history of surgery, radiation, or chemotherapy. He states he is to follow with a neurologist but does not anymore since going to [facility]. He states they keep telling him he needs a psychiatric evaluation. He states he has not been taking his psychiatric medications because those cause his blood pressure to bottom out. He then tells me the last time part of his brain had grown back bad but it was FUNGUS that grows inside of your brain. He reports that he is an vomiting none to several times a day over the last 4 months. He denies any GI evaluation. He denies any abdominal pain. He states that he alternates between plastic looking poop and squirting poop. He also states that he frequently has to go to the bathroom at night but does not urinate much. He states he has intermittent chest pain or shortness of breath but cannot elaborate. He states he was due to have bypass surgery but [facility] said he could not, he thinks that they are trying to kill him at [facility] by prescribing him medications. He reports he has not been taking them and that when he does his blood pressure drops. He states the only discovered that his blood pressure was low today because he could not-his vomiting. he follows with Dr. Blum for cardiology. Dr Zurita from [facility] gave report that patient has had an extensive cardiac history. He has had a cardiac MRI all which have been unrevealing. He was sent over from the clinic today with a felt he was having variations in the intensity of his pulse along with vomiting and a systolic blood pressure in the 80s. A thorough record review was performed including admission in October 2021 and July 2021. MRI brain 2013-suspect epididymal adhesions at the atria of the right lateral ventricle possibly posttraumatic with a tract occipital and temporal horns Pertinent positives and negatives as discussed in HPI, a complete review of systems was performed and all other systems are negative. Vital signs reviewed General: nontoxic, no distress, appears at stated age Derm: warm, dry Head: atraumatic, normocephalic, symmetric Eyes: EOMI, no lid lag, anicteric sclera, pupils equal round reactive to light ENT: Nose and ears atraumatic, no thrush, no pharyngeal erythema Neck: No thyromegaly, no cervical lymphadenopathy, trachea midline, supple Mouth: no lip lesion, mucus membranes moist Cardiovascular: S1S2 reg, no murmur, positive posterior tibial pulse bilateral, no edema, capillary refill less than 2 seconds Lungs: clear to auscultation bilateral, no rhonchi, no rales, no wheeze, no accessory muscle use Abdominal: soft, nontender to palpation, no guarding, no appreciable organomegaly, normal bowel sounds Ext: no gross muscle atrophy, muscle strength 5 out of 5 in all 4 extremities, no contractures Neuro: CN II-XII grossly intact, light touch intact all 4 extremities, finger to nose within normal limits, Psych: Alert, oriented, appropriate affect Assessment/Plan: Hypotension Intractable vomiting -Continue with Pepcid, Carafate -Check CT head -Check echocardiogram Acute kidney injury Hyperkalemia Hyponatremia -IV fluids -Hold Cozaar, Lasix -Repeat BMP at 10 PM to consider treatment of hyperkalemia Diabetes mellitus type 2 with hyperglycemia -Transition patient to 35 units twice a day of long-acting insulin -Continue with fixed dose aspart and add sliding scale -Follow blood sugars Hypertension, coronary artery disease, systolic congestive heart failure -Gentle IV fluid hydration -Continue with Coreg, hold Cozaar given hyperkalemia -Strict I's and O's -Daily weights -Aspirin, Imdur, statin Delusions -Continued from October -Continue outpatient follow-up The patient is admitted with an anticipated less than 2 midnight stay for evaluation of hypotension. Surrogate decision-maker: Patient has a court-appointed legal guardian CODE STATUS:full DVT prophylaxis: Lovenox Discussed with: patient, nursing Anticipated discharge date: in 1-[address]: home with HH A total of 65 minutes was spent on the care of this complex patient more than 50% of the time was spent in counseling and care coordination. Past Medical History Past Medical History: Cancer, Heart Failure, Diabetes Mellitus Additional Past Medical History / Comment(s): CVA, HTN, HLD Last Myocardial Infarction Date:: 2020 History of Any Multi-Drug Resistant Organisms: None Reported Past Surgical History: Appendectomy, Tonsillectomy Additional Past Surgical History / Comment(s): cataracts, vasectomy, Past Anesthesia/Blood Transfusion Reactions: No Reported Reaction Past Psychological History: Depression Additional Psychological History / Comment(s): Pt resides alone. He states he goes to [facility] 3 times a week for physical therapy and has meals while he is there. He also gets MOW. He has home oxygen and a nebulizer. He receives home care thru [facility]. He can drive. Smoking Status: Former smoker Past Alcohol Use History: None Reported Additional Past Alcohol Use History / Comment(s): Pt started smoking in 1983 nd quit in 1989. Pt states he was a past heavy drinker but quit drinking in 1998. Past Drug Use History: None Reported - Past Family History Father Additional Family Medical History / Comment(s): Father had multiple MIs and from one at the age of 51 yrs. Mother Additional Family Medical History / Comment(s): Mother had a bad heart. Medications and Allergies Home Medications Medication Instructions Recorded Confirmed Type Aspirin EC [Ecotrin Low Dose] 81 mg PO DAILY 01/12/19 03/18/22 History Atorvastatin [Lipitor] 80 mg PO HS 01/12/19 03/18/22 History Albuterol Inhaler [Ventolin Hfa 1 - 2 puff INHALATION RT-Q4H PRN 07/28/21 03/18/22 History Inhaler] Clopidogrel Bisulfate [Plavix] 75 mg PO DAILY 07/28/21 03/18/22 History Ferrous Sulfate [Iron (65 MG 325 mg PO DAILY 07/28/21 03/18/22 History Elemental)] Furosemide [Lasix] 40 mg PO DAILY 07/28/21 03/18/22 History Insulin Aspart (Niacinamide) 25 units SQ BID 07/28/21 03/18/22 History [Fiasp 100 Unit/ml Flextouch Pen] Ipratropium-Albuterol Nebulize 3 ml INHALATION RT-QID PRN 07/28/21 03/18/22 History [Duoneb 0.5 mg-3 mg/3 ml Soln] Isosorbide Mononitrate ER [Imdur] 30 mg PO DAILY 07/28/21 03/18/22 History Lactulose [Cephulac] 20 gm PO DAILY 07/28/21 03/18/22 History Losartan [Cozaar] 25 mg PO DAILY 07/28/21 03/18/22 History Insulin Glargine,Hum.rec.anlog 75 unit SQ HS 10/29/21 03/18/22 History [Basaglar Kwikpen U-100] carvediloL [Coreg] 25 mg PO BID #120 tab 11/03/21 03/18/22 Rx Famotidine [Pepcid] 20 mg PO DAILY 03/18/22 03/18/22 History Sucralfate [Carafate] 1 gm PO ACHS 03/18/22 03/18/22 History Allergies Allergy/AdvReac Type Severity Reaction Status Date / Time sacubitril [From Entresto] AdvReac made him Verified 03/18/22 15:31 hypotensive valsartan [From Entresto] AdvReac made him Verified 03/18/22 15:31 hypotensive Physical Exam Osteopathic Statement: *. No significant issues noted on an osteopathic structural exam other than those noted in the History and Physical/Consult. Vitals: Vital Signs Temp Pulse Resp BP Pulse Ox 03/18/22 16:30 93 18 122/66 98 03/18/22 15:42 87 127/70 03/18/22 15:26 84 121/67 03/18/22 15:05 84 93/58 03/18/22 14:28 98.1 F 85 18 105/54 98 Intake and Output 03/18/22 03/18/22 03/18/22 06:59 14:59 22:59 Other: Weight 124.284 kg Results CBC & Chem 7: 03/18/22 15:10 12/07/22 15:10 Labs: Abnormal Lab Results - Last 24 Hours (Table) 03/18/22 03/18/22 Range/Units 15:10 15:10 RBC 4.07 L (4.30-5.90) m/uL Hgb 12.8 L (13.0-17.5) gm/dL Hct 38.1 L (39.0-53.0) % Plt Count 137 L (150-450) k/uL Neutrophils # 8.7 H (1.3-7.7) k/uL Sodium 132 L (137-145) mmol/L Potassium 5.8 H (3.5-5.1) mmol/L BUN 52 H (9-20) mg/dL Creatinine 1.62 H (0.66-1.25) mg/dL Glucose 324 H (74-99) mg/dL
[2022-03-18] MEDS ORDERED: DEXTROSE 50% SYRINGE 50 ML IVP PRN ×2 (19:37)
--- NOTE | 2022-03-18 20:36 | CT ---
EXAMINATION TYPE: CT brain wo con DATE OF EXAM: 03/18/2022 COMPARISON: 10/29/2021 HISTORY: Hx of brain CA x20yrs ago, pt states he lost 25% of his left lower side of the brain to CA CT DLP: 1236.4 mGycm Automated exposure control for dose reduction was used. Images of the brain obtained with no contrast. There is some cerebral cortical atrophy. There is no mass effect or midline shift. No sign of intracr anial hemorrhage. There is enlargement of the occipital horn of the right lateral ventricle. Calvariu m is intact. IMPRESSION: Cerebral atrophy and chronic small vessel ischemia. No acute intracranial abnormality. Encephalomalac ia in the right occipital lobe with enlargement of the ventricle. No significant change compared to o ld exam
[2022-03-18 20:51] LABS: Glucose,Whole Blood 198 mg/dL (70-110)
[2022-03-18] MEDS: carvediloL 12.5 MG TAB PO SCH (21:04)
[2022-03-18] MEDS: ATORVASTATIN 80 MG TAB PO SCH (21:04)
[2022-03-18] MEDS: SODIUM CHLORIDE 0.9% 1,000 ML IV SCH (21:04)
[2022-03-18] MEDS: INSULIN ASPART (NovoLOG) 100 UNIT/ML VIAL SQ SCH (21:05)
[2022-03-18] MEDS: INSULIN DETEMIR (LEVEMIR) 100 UNIT/ML SYR SQ SCH (21:06)
[2022-03-19 00:10] LABS: African American GFR (CKD) 48 (>60 ml/min/1.73 sqM); Anion Gap 7 mmol/L; Blood Urea Nitrogen 58 mg/dL (9-20); Calcium 8.3 mg/dL (8.4-10.2); Carbon Dioxide 25 mmol/L (22-30); Chloride 100 mmol/L (98-107); Glucose 293 mg/dL (74-99); Non-African American GFR(CKD) 42 (>60 ml/min/1.73 sqM); Potassium 4.8 mmol/L (3.5-5.1); Sodium 132 mmol/L (137-145)
[2022-03-19 06:24] LABS: Glucose,Whole Blood 261 mg/dL (70-110)
[2022-03-19] MEDS: carvediloL 12.5 MG TAB PO SCH ×2 (06:36→18:00)
[2022-03-19] MEDS: INSULIN ASPART (NovoLOG) 100 UNIT/ML VIAL SQ SCH ×7 (06:37→21:12)
[2022-03-19] MEDS: FERROUS SULFATE 325 MG TAB PO SCH (08:27)
[2022-03-19] MEDS: ASPIRIN 81 MG PO SCH (08:27)
[2022-03-19] MEDS: CLOPIDOGREL 75 MG TAB PO SCH (08:27)
[2022-03-19] MEDS: FAMOTIDINE 20 MG TAB PO SCH (08:27)
[2022-03-19] MEDS: INSULIN DETEMIR (LEVEMIR) 100 UNIT/ML SYR SQ SCH ×2 (08:27→21:12)
[2022-03-19] MEDS: ENOXAPARIN 40 MG/0.4 ML SYRINGE SQ SCH (08:27)
[2022-03-19] MEDS ORDERED: ISOSORBIDE MONONITRATE ER 30 MG TAB.ER.24H PO SCH (09:00)
[2022-03-19 09:17] LABS: HCT 33.4 % (39.6-50.0); HGB 10.6 g/dL (13.0-17.0); MCH 30.7 pg (27.0-32.0); MCHC 31.7 g/dL (32.0-37.0); MCV 96.8 fL (80.0-97.0); NRBC Per 100 WBC 0 /100 WBCS (0.0-0.0); Platelet Count 123 X 10*3/uL (140-440); RBC 3.45 X 10*6/uL (4.40-5.60); RDW 13.7 % (11.5-14.5); WBC 8.71 X 10*3/uL (4.50-10.00)
--- NOTE | 2022-03-19 10:51 | P.CRDCN ---
History of Present Illness Consult date: 03/19/22 Reason for Consult (text): Hypotension, CHF History of present illness: HISTORY OF PRESENT ILLNESS: This is a 66-year-old male with a past medical history significant for coronary artery disease, diabetes, chronic systolic heart failure, cardiomyopathy, hypertension, hyperlipidemia, and former nicotine dependence. Patient follows with Dr. Cano, human resources benefits coordinator in [place]. Patient complains of nausea and vomiting usually after he takes his morning medications and has been happening on a regular basis. He denies having any chest pain, lightheadedness. He states he feels a little labored breathing. No PND. Denies nausea or vomiting. * EKG reveals sinus mechanism with biphasic P wave, nonspecific changes in the inferior lateral leads. * Chest xray negative for acute process * Laboratory data: WBC 8.7, hemoglobin 10.6, platelet count 123. Sodium 132, potassium 4.8, chloride 100, CO2 25, BUN 58 creatinine 1.7. Hemoglobin A1c 12.3. Calcium 8.3 liver function tests within normal limits. * Current home cardiac medications include aspirin 81 mg daily, Lipitor 80 mg at night, Plavix 75 mg daily, Lasix 40 mg daily, Imdur 30 mg daily, carvedilol 25 mg twice a day, and losartan 25 mg daily * Most recent echocardiogram obtained in July 2021 revealed ejection fraction 25-30% * Cardiac catheterization history: February 2018 at [facility]. Revealing ejection fraction 40%, mild diffuse disease in the LAD, mild diffuse disease in the circumflex, moderate diffuse disease in the RCA, proximal lesion with 80% stenosis, chronic total occlusion of the mid RCA with grade 3 collaterals from the left anterior coronary system via septal perforators. At that time it was recommended that the patient be managed with optimal medical therapy and would consider possible PCI of the RCA. No PCI was performed at that time. REVIEW OF SYSTEMS: At the time of my exam: CONSTITUTIONAL: Denies fever or chills. HEENT: Denies blurred vision, vision changes, or eye pain. Denies hemoptysis CARDIOVASCULAR: Denies chest pain. Denies orthopnea. Denies PND. Denies palpitations RESPIRATORY: Denies shortness of breath. GASTROINTESTINAL: Denies abdominal pain. Denies nausea or vomiting. HEMATOLOGIC: Denies bleeding disorders. GENITOURINARY: Denies any blood in urine. SKIN: Denies pruitis. Denies rash. PHYSICAL EXAM: VITAL SIGNS: Reviewed. GENERAL: Well-developed in no acute distress. HEENT: Head is normocephalic. Pupils are equal, round. Sclerae anicteric. Mucous membranes of the mouth are moist. Neck supple. No JVD or thyromegaly LUNGS: Respirations even and unlabored. Lungs essentially clear to auscultation bilaterally. HEART: Regular rate and rhythm. S1 and S2 heard. ABDOMEN: Soft. Nondistended. Nontender. EXTREMITIES: Normal range of motion. No clubbing or cyanosis. Peripheral pulses intact. No lower extremity edema NEUROLOGIC: Awake and alert. Oriented x 3. ASSESSMENT: Nausea vomiting every morning after taking his morning medications Coronary artery disease with details as above from cardiac catheterization performed in 2018 Hypertension Hyperlipidemia Ischemic cardiomyopathy Chronic systolic heart failure with reduced ejection fraction, currently euvolemic Diabetes mellitus type II, uncontrolled with A1c of 12.3 Former nicotine dependence PLAN: No need to repeat echocardiogram this was performed in July 2021 Resume home antihypertensive medications with the following changes: Decrease losartan 12.5 mg and administer at noon, continue carvedilol to 25 mg twice a day, continue Lasix 40 mg daily, discontinue Imdur Continue patient on aspirin 81 mg daily, Lipitor 80 mg at night, Plavix 75 mg daily Further recommendations as patient progresses Thank you kindly for this consultation. Nurse practitioner note has been reviewed by physician. Signing provider agrees with the documented findings, assessment, and plan of care. Past Medical History Past Medical History: Cancer, Heart Failure, Diabetes Mellitus Additional Past Medical History / Comment(s): CVA, HTN, HLD Last Myocardial Infarction Date:: 2020 History of Any Multi-Drug Resistant Organisms: None Reported Past Surgical History: Appendectomy, Tonsillectomy Additional Past Surgical History / Comment(s): cataracts, vasectomy, Past Anesthesia/Blood Transfusion Reactions: No Reported Reaction Past Psychological History: Depression Additional Psychological History / Comment(s): Pt resides alone. He states he goes to [facility] 3 times a week for physical therapy and has meals while he is there. He also gets MOW. He has home oxygen and a nebulizer. He receives home care thru [facility]. He can drive. Smoking Status: Former smoker Past Alcohol Use History: None Reported Additional Past Alcohol Use History / Comment(s): Pt started smoking in 1983 nd quit in 1989. Pt states he was a past heavy drinker but quit drinking in 1998. Past Drug Use History: None Reported - Past Family History Father Additional Family Medical History / Comment(s): Father had multiple MIs and from one at the age of 51 yrs. Mother Additional Family Medical History / Comment(s): Mother had a bad heart. Medications and Allergies Home Medications Medication Instructions Recorded Confirmed Type Aspirin EC [Ecotrin Low Dose] 81 mg PO DAILY 01/12/19 03/18/22 History Atorvastatin [Lipitor] 80 mg PO HS 01/12/19 03/18/22 History Albuterol Inhaler [Ventolin Hfa 1 - 2 puff INHALATION RT-Q4H PRN 07/28/21 History Inhaler] Clopidogrel Bisulfate [Plavix] 75 mg PO DAILY 07/28/21 03/18/22 History Ferrous Sulfate [Iron (65 MG 325 mg PO DAILY 07/28/21 03/18/22 History Elemental)] Furosemide [Lasix] 40 mg PO DAILY 07/28/21 03/18/22 History Insulin Aspart (Niacinamide) 25 units SQ BID 07/28/21 03/18/22 History [Fiasp 100 Unit/ml Flextouch Pen] Ipratropium-Albuterol Nebulize 3 ml INHALATION RT-QID PRN 07/28/21 03/18/22 History [Duoneb 0.5 mg-3 mg/3 ml Soln] Isosorbide Mononitrate ER [Imdur] 30 mg PO DAILY 07/28/21 03/18/22 History Lactulose [Cephulac] 20 gm PO DAILY 07/28/21 03/18/22 History Losartan [Cozaar] 25 mg PO DAILY 07/28/21 03/18/22 History Insulin Glargine,Hum.rec.anlog 75 unit SQ HS 10/29/21 03/18/22 History [Basaglar Jeancarlospen U-100] carvediloL [Coreg] 25 mg PO BID #120 tab 11/03/21 03/18/22 Rx Famotidine [Pepcid] 20 mg PO DAILY 03/18/22 03/18/22 History Sucralfate [Carafate] 1 gm PO ACHS 03/18/22 03/18/22 History Allergies Allergy/AdvReac Type Severity Reaction Status Date / Time sacubitril [From Entresto] AdvReac made him Verified 03/18/22 15:31 hypotensive valsartan [From Entresto] AdvReac made him Verified 03/18/22 15:31 hypotensive Physical Exam Vitals: Vital Signs Temp Pulse Pulse Resp BP BP Pulse Ox 03/19/22 06:34 97.5 F L 81 17 113/69 97 03/19/22 02:41 97.4 F L 82 17 120/65 99 03/18/22 21:59 98.1 F 92 18 117/68 99 03/18/22 21:24 78 15 129/77 100 03/18/22 16:30 93 18 122/66 98 03/18/22 15:42 87 127/70 03/18/22 15:26 84 121/67 03/18/22 15:05 84 93/58 03/18/22 14:28 98.1 F 85 18 105/54 98 Intake and Output 03/18/22 03/19/22 03/19/22 22:59 06:59 14:59 Other: Voiding Method Toilet # Voids 0 2 Weight 124.284 kg Results 03/19/22 04:44 03/18/22 22:37 Cardiac Enzymes 03/18/22 Range/Units 15:10 AST 23 (17-59) U/L CBC 03/18/22 Range/Units 15:10 WBC 10.6 (3.8-10.6) k/uL RBC 4.07 L (4.30-5.90) m/uL Hgb 12.8 L (13.0-17.5) gm/dL Hct 38.1 L (39.0-53.0) % Plt Count 137 L (150-450) k/uL Comprehensive Metabolic Panel 03/18/22 03/18/22 Range/Units 15:10 22:37 Sodium 132 L 132 L (137-145) mmol/L Potassium 5.8 H 4.8 (3.5-5.1) mmol/L Chloride 100 100 (98-107) mmol/L Carbon Dioxide 23 25 (22-30) mmol/L BUN 52 H 58 H (9-20) mg/dL Creatinine 1.62 H 1.70 H (0.66-1.25) mg/dL Glucose 324 H 293 H (74-99) mg/dL Calcium 8.7 8.3 L (8.4-10.2) mg/dL AST 23 (17-59) U/L ALT 36 (4-49) U/L Alkaline Phosphatase 72 (38-126) U/L Total Protein 6.5 (6.3-8.2) g/dL Albumin 3.9 (3.5-5.0) g/dL Current Medications Generic Name Dose Route Start Last Admin Trade Name Freq PRN Reason Stop Dose Admin Acetaminophen 650 mg 03/18/22 18:55 Acetaminophen Tab 325 Mg Tab PO Q6HR PRN Mild Pain or Fever > 100.5 Albuterol/Ipratropium 3 ml 03/18/22 19:25 Ipratropium-Albuterol 3 Ml Neb INHALATION RT-QID PRN Shortness Of Breath Aspirin 81 mg 03/19/22 09:00 Aspirin 81 Mg PO DAILY TWILA Atorvastatin Calcium 80 mg 03/18/22 21:00 03/18/22 21:04 Atorvastatin 80 Mg Tab PO 80 mg HS TWILA Administration Carvedilol 25 mg 03/18/22 21:00 03/19/22 06:36 Carvedilol 12.5 Mg Tab PO 25 mg AC-BID TWILA Administration Clopidogrel Bisulfate 75 mg 03/19/22 09:00 Clopidogrel 75 Mg Tab PO DAILY [facility] Dextrose/Water 25 ml 03/18/22 19:37 Dextrose 50% Syringe 50 Ml IVP PER PROTOCOL PRN Hypoglycemia Protocol Dextrose/Water 50 ml 03/18/22 19:37 Dextrose 50% Syringe 50 Ml IVP PER PROTOCOL PRN Hypoglycemia Protocol Enoxaparin Sodium 40 mg 03/19/22 09:00 Enoxaparin 40 Mg/0.4 Ml Syringe SQ DAILY [facility] Famotidine 20 mg 03/19/22 09:00 Famotidine 20 Mg Tab PO DAILY TWILA Ferrous Sulfate 325 mg 03/19/22 09:00 Ferrous Sulfate 325 Mg Tab PO DAILY [facility] Sodium Chloride 1,000 mls @ 50 mls/hr 03/18/22 19:45 03/18/22 21:04 Saline 0.9% IV 50 mls/hr .Q20H TWILA Administration Insulin Aspart 12 unit 03/19/22 07:30 Insulin Aspart (Novolog) 100 Unit/Ml Vial 0.1 unit/kg (12 unit) SQ AC-TID [facility] Insulin Aspart 0 unit 03/18/22 21:00 03/19/22 06:37 Insulin Aspart (Novolog) 100 Unit/Ml Vial SQ 6 unit ACHS TWILA Administration Protocol Insulin Detemir 19 unit 03/18/22 21:00 03/18/22 21:06 Insulin Detemir (Levemir) 100 Unit/Ml Syr 0.15 unit/kg (19 unit) 19 unit SQ Administration BID TWILA Isosorbide Mononitrate 30 mg 03/19/22 09:00 Isosorbide Mononitrate Er 30 Mg Tab.Er.24h PO DAILY TWILA Melatonin 3 mg 03/18/22 18:55 03/18/22 21:04 Melatonin 3 Mg Tablet PO 3 mg HS PRN Administration Insomnia Naloxone HCl 0.2 mg 03/18/22 18:55 Naloxone 0.4 Mg/Ml 1 Ml Vial IV Q2M PRN Opioid Reversal Ondansetron HCl 4 mg 03/18/22 18:55 Ondansetron 4 Mg/2 Ml Vial IVP Q8HR PRN Nausea And Vomiting Intake and Output 03/18/22 03/19/22 03/19/22 22:59 06:59 14:59 Other: Voiding Method Toilet # Voids 0 2 Weight 124.284 kg 03/18/22 15:10 03/18/22 22:37
--- NOTE | 2022-03-19 11:19 | P.PN ---
Subjective Progress Note Date: 03/19/22 No new complaints. Patient denies any nausea, vomiting. Denies chest pain, palpitations. Denies dizziness, lightheadedness. Patient says he feels back to baseline. Gen: awake, alert HEENT: normocephalic, atraumatic, good hearing acuity, moist mucous membranes Resp: good air exchange, breathing comfortably with no accessory muscle use CVS: good distal perfusion x 4, GI: soft, NTTP, ND : no SPT, no CVAT, nunez catheter not present MSK: no pitting edema, no clubbing Neuro: non-focal, moving all extremities Psych: cooperative, euthymic mood Assessment/plan: Hypotension Intractable vomiting -Continue with Pepcid, Carafate -Check CT head -Echocardiogram deferred by cardiology -Cardiology is adjusting patient's blood pressure medications, reducing losartan and changing administration schedule Acute kidney injury Hyperkalemia Hyponatremia -IV fluids -Hold Cozaar, Lasix -Repeat BMP at 10 PM to consider treatment of hyperkalemia, showed resolution of hyperkalemia Diabetes mellitus type 2 with hyperglycemia -Transition patient to 35 units twice a day of long-acting insulin -Continue with fixed dose aspart and add sliding scale -Follow blood sugars Hypertension, coronary artery disease, systolic congestive heart failure -Gentle IV fluid hydration -Continue with Coreg, hold Cozaar given hyperkalemia -Strict I's and O's -Daily weights -Aspirin, Imdur, statin Delusions -Continued from October -Continue outpatient follow-up The patient is admitted with an anticipated less than 2 midnight stay for evaluation of hypotension. Surrogate decision-maker: Patient has a court-appointed legal guardian CODE STATUS:full DVT prophylaxis: Lovenox Discussed with: patient, nursing Anticipated discharge date: in 1-[address]: home with HH A total of 65 minutes was spent on the care of this complex patient more than 50% of the time was spent in counseling and care coordination. Objective - Vital Signs Vital signs: Vital Signs Temp 97.5 F L 03/19/22 06:34 Pulse 81 03/19/22 06:34 Resp 17 03/19/22 06:34 BP 113/69 03/19/22 06:34 Pulse Ox 97 03/19/22 06:34 FiO2 Intake & Output 03/18/22 03/19/22 03/19/22 18:59 06:59 18:59 Intake Total 240 Balance 240 Weight 124.284 kg 124.284 kg Intake: Oral 240 Other: Voiding Method Toilet Toilet # Voids 2 - Labs CBC & Chem 7: 03/19/22 04:44 03/18/22 22:37 Labs: Abnormal Lab Results - Last 24 Hours (Table) 03/18/22 03/18/22 03/18/22 Range/Units 15:10 15:10 20:50 RBC 4.07 L (4.30-5.90) m/uL Hgb 12.8 L (13.0-17.5) gm/dL Hct 38.1 L (39.0-53.0) % MCHC (32.0-37.0) g/dL Plt Count 137 L (150-450) k/uL Neutrophils # 8.7 H (1.3-7.7) k/uL Sodium 132 L (137-145) mmol/L Potassium 5.8 H (3.5-5.1) mmol/L BUN 52 H (9-20) mg/dL Creatinine 1.62 H (0.66-1.25) mg/dL Glucose 324 H (74-99) mg/dL POC Glucose (mg/dL) 198 H (70-110) mg/dL Hemoglobin A1c (0.0-6.0) % Calcium (8.4-10.2) mg/dL 03/18/22 03/18/22 03/19/22 Range/Units 22:37 22:37 04:44 RBC 3.45 L (4.30-5.90) m/uL Hgb 10.6 L (13.0-17.5) gm/dL Hct 33.4 L (39.0-53.0) % MCHC 31.7 L (32.0-37.0) g/dL Plt Count 123 L (150-450) k/uL Neutrophils # (1.3-7.7) k/uL Sodium 132 L (137-145) mmol/L Potassium (3.5-5.1) mmol/L BUN 58 H (9-20) mg/dL Creatinine 1.70 H (0.66-1.25) mg/dL Glucose 293 H (74-99) mg/dL POC Glucose (mg/dL) (70-110) mg/dL Hemoglobin A1c 12.3 H (0.0-6.0) % Calcium 8.3 L (8.4-10.2) mg/dL 03/19/22 Range/Units 06:23 RBC (4.30-5.90) m/uL Hgb (13.0-17.5) gm/dL Hct (39.0-53.0) % MCHC (32.0-37.0) g/dL Plt Count (150-450) k/uL Neutrophils # (1.3-7.7) k/uL Sodium (137-145) mmol/L Potassium (3.5-5.1) mmol/L BUN (9-20) mg/dL Creatinine (0.66-1.25) mg/dL Glucose (74-99) mg/dL POC Glucose (mg/dL) 261 H (70-110) mg/dL Hemoglobin A1c (0.0-6.0) % Calcium (8.4-10.2) mg/dL
[2022-03-19] MEDS: IPRATROPIUM-ALBUTEROL 3 ML NEB INHALATION PRN ×2 (11:20→19:09)
[2022-03-19 12:12] LABS: Glucose,Whole Blood 165 mg/dL (70-110)
[2022-03-19] MEDS: LOSARTAN 25 MG TAB PO SCH (12:40)
[2022-03-19 13:35] LABS: African American GFR (CKD) 55.3 (60.0-200.0); Albumin 3.5 g/dL (3.8-4.9); Albumin/Globulin Ratio 1.85 (1.60-3.17); BUN/Creat Ratio 37.76 Ratio (12.00-20.00); Blood Urea Nitrogen 57.4 mg/dL (9.0-27.0); Calcium 8.5 mg/dL (8.7-10.3); Carbon Dioxide 21.7 mmol/L (20.0-27.5); Globulin 1.9 g/dL (1.6-3.3); Non-African American GFR(CKD) 47.7 (60.0-200.0); Potassium 4.9 mmol/L (3.5-5.5); Total Bilirubin 0.4 mg/dL (0.30-1.20); Total Protein 5.4 g/dL (6.2-8.2)
[2022-03-19] MEDS: ACETAMINOPHEN TAB 325 MG TAB PO PRN ×2 (15:18→21:16)
[2022-03-19] MEDS: SODIUM CHLORIDE 0.9% 1,000 ML IV SCH (16:35)
[2022-03-19 17:08] LABS: Glucose,Whole Blood 141 mg/dL (70-110)
[2022-03-19 21:01] LABS: Glucose,Whole Blood 219 mg/dL (70-110)
[2022-03-19] MEDS: ATORVASTATIN 80 MG TAB PO SCH (21:11)
[2022-03-20 06:30] LABS: Glucose,Whole Blood 261 mg/dL (70-110)
[2022-03-20] MEDS: INSULIN ASPART (NovoLOG) 100 UNIT/ML VIAL SQ SCH ×4 (06:41→12:36)
[2022-03-20] MEDS: carvediloL 12.5 MG TAB PO SCH (06:41)
[2022-03-20] MEDS: IPRATROPIUM-ALBUTEROL 3 ML NEB INHALATION PRN ×2 (07:20→11:00)
[2022-03-20] MEDS: INSULIN DETEMIR (LEVEMIR) 100 UNIT/ML SYR SQ SCH (08:12)
[2022-03-20] MEDS: ASPIRIN 81 MG PO SCH (08:13)
[2022-03-20] MEDS: FERROUS SULFATE 325 MG TAB PO SCH (08:13)
[2022-03-20] MEDS: CLOPIDOGREL 75 MG TAB PO SCH (08:13)
[2022-03-20] MEDS: ENOXAPARIN 40 MG/0.4 ML SYRINGE SQ SCH (08:13)
[2022-03-20] MEDS: FAMOTIDINE 20 MG TAB PO SCH (08:13)
[2022-03-20] MEDS: ACETAMINOPHEN TAB 325 MG TAB PO PRN ×2 (08:25→14:32)
[2022-03-20] MEDS ORDERED: FUROSEMIDE 40 MG TAB PO SCH (09:00)
--- NOTE | 2022-03-20 09:09 | CA ---
Transthoracic Echo Report Name: Simon Valdez Age: 66 Gender: M : 1955 Exam Date: 03/19/2022 08:56 Exam Location: [facility] Ht (in): 74 Wt (lb): 274 Ordering Physician: Norma Knight DO Attending/Referring Phys: [id number], [place] 911 Dispatcher Loly Nuñez RDCS Procedure CPT: Indications: Hypotension Cardiac Hx: Technical Quality: Technically difficult study Contrast 1: Lumason Total Dose (mL): 5 Contrast 2: Total Dose (mL): MEASUREMENTS (Male / Female) Normal Values 2D ECHO LV Diastolic Diameter PLAX 5.4 cm 4.2 - 5.9 / 3.9 - 5.3 cm LV Systolic Diameter PLAX 4.1 cm IVS Diastolic Thickness 1.2 cm 0.6 - 1.0 / 0.6 - 0.9 cm LVPW Diastolic Thickness 1.4 cm 0.6 - 1.0 / 0.6 - 0.9 cm LV Relative Wall Thickness 0.5 RV Internal Dim ED PLAX 4.3 cm LA Volume 69.4 cm??? 18 - 58 / 22 - 52 cm??? M-MODE Aortic Root Diameter MM 3.0 cm LA Systolic Diameter MM 5.8 cm LA Ao Ratio MM 2.0 AV Cusp Separation MM 2.0 cm DOPPLER AV Peak Velocity 157.2 cm/s AV Peak Gradient 9.9 mmHg AV Mean Velocity 117.0 cm/s AV Mean Gradient 5.7 mmHg AV Velocity Time Integral 33.4 cm LVOT Peak Velocity 110.7 cm/s LVOT Peak Gradient 4.9 mmHg LVOT Velocity Time Integral 22.3 cm MV Area PHT 3.8 cm??? Mitral E Point Velocity 94.5 cm/s Mitral A Point Velocity 110.5 cm/s Mitral E to A Ratio 0.9 MV Deceleration Time 199.3 ms MV E' Velocity 5.7 cm/s Mitral E to MV E' Ratio 16.6 TR Peak Velocity 157.9 cm/s TR Peak Gradient 10.0 mmHg Right Ventricular Systolic Press 15.0 mmHg FINDINGS Left Ventricle Mildly increased septal wall thickness. Normal left ventricular systolic function with no obvious regional wall motion abnormalities. Left ventricular ejection fraction is estimated at 50-55 %. Abnormal (paradoxical) septal motion consistent with postoperative state. Right Ventricle Mild right ventricular dilatation. Right ventricular systolic pressure within normal limits. Right Atrium Normal right atrial size. Left Atrium Moderately increased left atrial volume. Mitral Valve Structurally normal mitral valve. Mild mitral annular calcification. Mild mitral regurgitation. Aortic Valve Aortic valve not well visualized. No aortic valve stenosis or regurgitation. Tricuspid Valve Mild tricuspid regurgitation. Pulmonic Valve Pulmonic valve not well visualized. Pericardium No pericardial effusion. Aorta Aortic root and proximal ascending aorta not well visualized. CONCLUSIONS Normal LV size and function Technically difficult study with suboptimal acoustic windows Definity contrast use to enhance the LV endocardial borders for good visualization Previewed by: Dr. Mike Beltran MD (Electronically Signed) Final Date: 20 March 2022 09:08
[2022-03-20 12:14] LABS: Glucose,Whole Blood 248 mg/dL (70-110)
[2022-03-20 12:35] VITALS: PULSE 80
[2022-03-20] MEDS: LOSARTAN 25 MG TAB PO SCH (12:35)
--- NOTE | 2022-03-20 13:11 | P.DS ---
Providers Date of admission: 03/18/22 17:06 Expected date of discharge: 03/20/22 Attending physician: Norma Knight DO Consults: 03/18/22 18:57 Consult Physician Routine Consulting Provider: John Flores Consult Reason/Comments: hypotension, chf Do you want consulting provider notified?: Yes Primary care physician: Connor Nicholson MD Hospital Course: Hypotension Intractable vomiting Acute kidney injury Hyperkalemia Hyponatremia Diabetes mellitus type 2 with hyperglycemia Hypertension, coronary artery disease Delusions Patient is a 66-year-old male with systolic congestive heart failure congestive heart failure, diabetes, prior brain cancer, and issues with hypotension who was sent to the ER by his outpatient provider. He was seen at the clinic today and they are concerned with his blood pressure was in the 80s and they felt as though his pulse was bounding and then faint every other beat. In the ER the patient underwent an extensive evaluation. On arrival his vital signs were within normal limits. Initial laboratory analysis shows a hemoglobin of 12.8, platelets 137, sodium 132, potassium 5.8, BUN 52, creatinine 1.62 (baseline creatinine 1.2), and glucose of 324. Cardiology was consulted and made some changes to her blood pressure medications. Changes included the reduction of losartan from 25 mg daily to 12.5 mg daily, as well as the holding of Imdur. Patient also went to echocardiogram, which showed ejection fraction of 50-55%, left atrial enlargement, otherwise no diastolic dysfunction. Patient did have some adjustment is made to his insulin due to hyperglycemia. All medication changes and Hospital course were discussed with patient's primary care physician over the phone. Patient will be discharged home with home care services, PCP follow-up, cardiology follow-up. Vital signs reviewed Gen: awake, alert HEENT: normocephalic, atraumatic, good hearing acuity, moist mucous membranes Resp: good air exchange, breathing comfortably with no accessory muscle use CVS: good distal perfusion x 4, GI: soft, NTTP, ND : no SPT, no CVAT, nunez catheter not present MSK: no pitting edema, no clubbing Neuro: non-focal, moving all extremities Psych: cooperative, euthymic mood Patient Condition at Discharge: Good Plan - Discharge Summary New Discharge Prescriptions: New Insulin Detemir (Levemir) [Levemir] 19 unit SQ BID each INSULIN ASPART (NovoLOG) [NovoLOG (formulary)] 12 unit SQ AC-TID each Melatonin 3 mg PO HS PRN tab PRN Reason: Insomnia INSULIN ASPART (NovoLOG) [NovoLOG (formulary)] 0 unit SQ ACHS each Acetaminophen Tab [Tylenol] 650 mg PO Q6HR PRN tab PRN Reason: Mild Pain Or Fever > 100.5 Continue Atorvastatin [Lipitor] 80 mg PO HS Aspirin EC [Ecotrin Low Dose] 81 mg PO DAILY Lactulose [Cephulac] 20 gm PO DAILY Ipratropium-Albuterol Nebulize [Duoneb 0.5 mg-3 mg/3 ml Soln] 3 ml INHALATION RT-QID PRN PRN Reason: Shortness Of Breath Furosemide [Lasix] 40 mg PO DAILY Clopidogrel Bisulfate [Plavix] 75 mg PO DAILY Albuterol Inhaler [Ventolin Hfa Inhaler] 1 - 2 puff INHALATION RT-Q4H PRN PRN Reason: Shortness Of Breath carvediloL [Coreg] 25 mg PO BID #120 tab Famotidine [Pepcid] 20 mg PO DAILY Sucralfate [Carafate] 1 gm PO ACHS Ferrous Sulfate [Iron (65 MG Elemental)] 325 mg PO DAILY Changed Losartan [Cozaar] 12.5 mg PO DAILY #0 Discontinued Isosorbide Mononitrate ER [Imdur] 30 mg PO DAILY Insulin Aspart (Niacinamide) [Fiasp 100 Unit/ml Flextouch Pen] 25 units SQ BID Insulin Glargine,Hum.rec.anlog [Basaglar Kwikpen U-100] 75 unit SQ HS Discharge Medication List Aspirin EC [Ecotrin Low Dose] 81 mg PO DAILY 01/12/19 [History] Atorvastatin [Lipitor] 80 mg PO HS 01/12/19 [History] Albuterol Inhaler [Ventolin Hfa Inhaler] 1 - 2 puff INHALATION RT-Q4H PRN 07/28/21 [History] Clopidogrel Bisulfate [Plavix] 75 mg PO DAILY 07/28/21 [History] Ferrous Sulfate [Iron (65 MG Elemental)] 325 mg PO DAILY 07/28/21 [History] Furosemide [Lasix] 40 mg PO DAILY 07/28/21 [History] Ipratropium-Albuterol Nebulize [Duoneb 0.5 mg-3 mg/3 ml Soln] 3 ml INHALATION RT-QID PRN 07/28/21 [History] Lactulose [Cephulac] 20 gm PO DAILY 07/28/21 [History] carvediloL [Coreg] 25 mg PO BID #120 tab 11/03/21 [Rx] Famotidine [Pepcid] 20 mg PO DAILY 03/18/22 [History] Sucralfate [Carafate] 1 gm PO ACHS 03/18/22 [History] Acetaminophen Tab [Tylenol] 650 mg PO Q6HR PRN tab 03/20/22 [Rx] INSULIN ASPART (NovoLOG) [NovoLOG (formulary)] 0 unit SQ ACHS each 03/20/22 [Rx] INSULIN ASPART (NovoLOG) [NovoLOG (formulary)] 12 unit SQ AC-TID each 03/20/22 [Rx] Insulin Detemir (Levemir) [Levemir] 19 unit SQ BID each 03/20/22 [Rx] Losartan [Cozaar] 12.5 mg PO DAILY #0 03/20/22 [Rx] Melatonin 3 mg PO HS PRN tab 03/20/22 [Rx] Follow up Appointment(s)/Referral(s): Connor Nihcolson MD [Primary Care Provider] - 1-2 days Patient Instructions/Handouts: Acute Kidney Injury (DC) Discharge Disposition: HOME WITH HOME HEALTH SERVICES
[2022-03-20 15:15] VITALS: BP 153/76; RESP 20; TEMP 98.2
[2022-03-20 15:16] VITALS: BMI 35.2
== END 2022-03-20 15:03 | disposition home health service (06) ==
LOC: EC 14:22 → 6NMEDSUR 17:06
PROVIDERS: ADMIT Internal Medicine; ATTEND Internal Medicine
DX: I95.9 Hypotension, unspecified (principal); R11.10 Vomiting, unspecified; N17.9 Acute kidney failure, unspecified; E87.5 Hyperkalemia; E87.1 Hypo-osmolality and hyponatremia; E11.65 Type 2 diabetes mellitus with hyperglycemia; I11.0 Hypertensive heart disease with heart failure; I50.22 Chronic systolic (congestive) heart failure; I25.10 Atherosclerotic heart disease of native coronary artery without angina pectoris; F22 Delusional disorders; F32.A Depression, unspecified; I25.5 Ischemic cardiomyopathy; E78.5 Hyperlipidemia, unspecified; I25.2 Old myocardial infarction; Z85.841 Personal history of malignant neoplasm of brain; Z86.73 Personal history of transient ischemic attack (TIA), and cerebral infarction without residual deficits; Z87.891 Personal history of nicotine dependence; Z79.82 Long term (current) use of aspirin; Z79.899 Other long term (current) drug therapy; Z79.02 Long term (current) use of antithrombotics/antiplatelets; Z79.4 Long term (current) use of insulin
CPT/HCPCS: 96360; 96361; 96372 ×3; 99285; 36415; 94640 ×4; 94760 ×2; 93005; 93306; 97530; 97162; 97535; 97166; 80053 ×2; 80048; 83735 ×2; 85025; 85027; 83036; 71046; 70450; G0378 ×3; J1650 ×2; Q9950

== ENCOUNTER 2022-04-01 14:43 | Observation (INO) | payer OTHER ==
[2022-04-01] MEDS ORDERED: ASPIRIN 81 MG PO STA (15:06)
--- NOTE | 2022-04-01 15:09 | ED ---
General Adult HPI - General Chief complaint: Chest Pain Stated complaint: chest heaviness Time Seen by Provider: 04/01/22 14:57 Source: patient, EMS, RN notes reviewed Mode of arrival: EMS Limitations: no limitations - History of Present Illness Initial comments: Patient is a pleasant 66-year-old male presenting to the emergency department from a care facility for chest discomfort. Onset of symptoms was this morning. Patient states symptoms have resolved now. Discomfort felt like heaviness. Patient did have mild associated nausea and dyspnea. No diaphoresis. Patient states he may have had similar symptoms years ago associated with a silent heart attack. No leg pain or leg swelling. - Related Data Home Medications Medication Instructions Recorded Confirmed Aspirin EC [Ecotrin Low Dose] 81 mg PO DAILY 01/12/19 03/18/22 Atorvastatin [Lipitor] 80 mg PO HS 01/12/19 03/18/22 Albuterol Inhaler [Ventolin Hfa 1 - 2 puff INHALATION RT-Q4H PRN 07/28/21 03/18/22 Inhaler] Clopidogrel Bisulfate [Plavix] 75 mg PO DAILY 07/28/21 03/18/22 Ferrous Sulfate [Iron (65 MG 325 mg PO DAILY 07/28/21 03/18/22 Elemental)] Furosemide [Lasix] 40 mg PO DAILY 07/28/21 03/18/22 Ipratropium-Albuterol Nebulize 3 ml INHALATION RT-QID PRN 07/28/21 03/18/22 [Duoneb 0.5 mg-3 mg/3 ml Soln] Lactulose [Cephulac] 20 gm PO DAILY 07/28/21 03/18/22 Famotidine [Pepcid] 20 mg PO DAILY 03/18/22 03/18/22 Sucralfate [Carafate] 1 gm PO ACHS 03/18/22 03/18/22 Previous Rx's Medication Instructions Recorded carvediloL [Coreg] 25 mg PO BID #120 tab 11/03/21 Acetaminophen Tab [Tylenol] 650 mg PO Q6HR PRN tab 03/20/22 INSULIN ASPART (NovoLOG) [NovoLOG 0 unit SQ ACHS each 03/20/22 (formulary)] INSULIN ASPART (NovoLOG) [NovoLOG 12 unit SQ AC-TID each 03/20/22 (formulary)] Insulin Detemir (Levemir) [Levemir] 19 unit SQ BID each 03/20/22 Losartan [Cozaar] 12.5 mg PO DAILY #0 03/20/22 Melatonin 3 mg PO HS PRN tab 03/20/22 Allergies Allergy/AdvReac Type Severity Reaction Status Date / Time sacubitril [From Entresto] AdvReac made him Verified 03/18/22 15:31 hypotensive valsartan [From Entresto] AdvReac made him Verified 03/18/22 15:31 hypotensive Review of Systems ROS Statement: Those systems with pertinent positive or pertinent negative responses have been documented in the HPI. ROS Other: All systems not noted in ROS Statement are negative. Constitutional: Denies: fever Eyes: Denies: eye pain ENT: Denies: ear pain Respiratory: Denies: cough Cardiovascular: Reports: as per HPI, chest pain Endocrine: Denies: fatigue Gastrointestinal: Denies: abdominal pain Genitourinary: Denies: dysuria Musculoskeletal: Denies: back pain Skin: Denies: rash Neurological: Denies: weakness Past Medical History Past Medical History: Cancer, Heart Failure, Diabetes Mellitus Additional Past Medical History / Comment(s): CVA, HTN, HLD Last Myocardial Infarction Date:: 2020 History of Any Multi-Drug Resistant Organisms: None Reported Past Surgical History: Appendectomy, Tonsillectomy Additional Past Surgical History / Comment(s): cataracts, vasectomy, Past Anesthesia/Blood Transfusion Reactions: No Reported Reaction Past Psychological History: Depression Additional Psychological History / Comment(s): Pt resides alone. He states he goes to [facility] 3 times a week for physical therapy and has meals while he is there. He also gets MOW. He has home oxygen and a nebulizer. He receives home care thru [facility]. He can drive. Smoking Status: Former smoker Past Alcohol Use History: None Reported Additional Past Alcohol Use History / Comment(s): Pt started smoking in 1983 nd quit in 1989. Pt states he was a past heavy drinker but quit drinking in 1998. Past Drug Use History: None Reported - Past Family History Father Additional Family Medical History / Comment(s): Father had multiple MIs and from one at the age of 51 yrs. Mother Additional Family Medical History / Comment(s): Mother had a bad heart. General Exam Limitations: no limitations General appearance: alert Head exam: Present: normocephalic Eye exam: Present: normal appearance Neck exam: Present: normal inspection Respiratory exam: Present: normal lung sounds bilaterally Cardiovascular Exam: Present: regular rate, normal rhythm Expanded Peripheral pulses: 2+: Radial (R), Radial (L), Posterior Tibialis (R), Posterior Tibialis (L) GI/Abdominal exam: Present: soft. Absent: tenderness Extremities exam: Present: normal inspection. Absent: pedal edema, calf tenderness Neurological exam: Present: alert Psychiatric exam: Present: normal affect, normal mood Skin exam: Present: normal color Course Vital Signs 04/01/22 14:50 Temperature 98.9 F Pulse Rate 77 Respiratory 18 Rate Blood Pressure 138/68 O2 Sat by Pulse 99 Oximetry Medical Decision Making - Medical Decision Making Patient reevaluated and resting comfortably in bed. Patient updated on results and plan. Case was discussed with Dr. Mathew, who will admit for this [facility] patient - Lab Data Result diagrams: 04/01/22 15:26 04/01/22 16:11 Lab Results 04/01/22 04/01/22 04/01/22 Range/Units 15:26 15:26 16:11 WBC 8.0 (3.8-10.6) k/uL RBC 3.89 L (4.30-5.90) m/uL Hgb 12.5 L (13.0-17.5) gm/dL Hct 36.0 L (39.0-53.0) % MCV 92.6 (80.0-100.0) fL MCH 32.2 (25.0-35.0) pg MCHC 34.8 (31.0-37.0) g/dL RDW 13.4 (11.5-15.5) % Plt Count 164 (150-450) k/uL MPV 7.9 Neutrophils % 64 % Lymphocytes % 25 % Monocytes % 5 % Eosinophils % 4 % Basophils % 1 % Neutrophils # 5.1 (1.3-7.7) k/uL Lymphocytes # 2.0 (1.0-4.8) k/uL Monocytes # 0.4 (0-1.0) k/uL Eosinophils # 0.3 (0-0.7) k/uL Basophils # 0.1 (0-0.2) k/uL Sodium 138 (137-145) mmol/L Potassium 4.6 (3.5-5.1) mmol/L Chloride 107 (98-107) mmol/L Carbon Dioxide 20 L (22-30) mmol/L Anion Gap 11 mmol/L BUN 44 H (9-20) mg/dL Creatinine 1.24 (0.66-1.25) mg/dL Est GFR (CKD-EPI)AfAm 71 (>60 ml/min/1.73 sqM) Est GFR (CKD-EPI)NonAf 61 (>60 ml/min/1.73 sqM) Glucose 103 H (74-99) mg/dL Calcium 8.9 (8.4-10.2) mg/dL Magnesium 1.7 (1.6-2.3) mg/dL Total Bilirubin 1.0 (0.2-1.3) mg/dL AST 32 (17-59) U/L ALT 27 (4-49) U/L Alkaline Phosphatase 55 (38-126) U/L Troponin I (0.000-0.034) ng/mL NT-Pro-B Natriuret Pep 586 pg/mL Total Protein 6.5 (6.3-8.2) g/dL Albumin 3.9 (3.5-5.0) g/dL 04/01/22 Range/Units 16:11 WBC (3.8-10.6) k/uL RBC (4.30-5.90) m/uL Hgb (13.0-17.5) gm/dL Hct (39.0-53.0) % MCV (80.0-100.0) fL MCH (25.0-35.0) pg MCHC (31.0-37.0) g/dL RDW (11.5-15.5) % Plt Count (150-450) k/uL MPV Neutrophils % % Lymphocytes % % Monocytes % % Eosinophils % % Basophils % % Neutrophils # (1.3-7.7) k/uL Lymphocytes # (1.0-4.8) k/uL Monocytes # (0-1.0) k/uL Eosinophils # (0-0.7) k/uL Basophils # (0-0.2) k/uL Sodium (137-145) mmol/L Potassium (3.5-5.1) mmol/L Chloride (98-107) mmol/L Carbon Dioxide (22-30) mmol/L Anion Gap mmol/L BUN (9-20) mg/dL Creatinine (0.66-1.25) mg/dL Est GFR (CKD-EPI)AfAm (>60 ml/min/1.73 sqM) Est GFR (CKD-EPI)NonAf (>60 ml/min/1.73 sqM) Glucose (74-99) mg/dL Calcium (8.4-10.2) mg/dL Magnesium (1.6-2.3) mg/dL Total Bilirubin (0.2-1.3) mg/dL AST (17-59) U/L ALT (4-49) U/L Alkaline Phosphatase (38-126) U/L Troponin I 0.015 (0.000-0.034) ng/mL NT-Pro-B Natriuret Pep pg/mL Total Protein (6.3-8.2) g/dL Albumin (3.5-5.0) g/dL - Radiology Data Interpreted by me: Chest x-ray shows no acute process Disposition Clinical Impression: Chest pain Disposition: ADMITTED IP TO THIS HOSP Is patient prescribed a controlled substance at d/c from ED?: No Referrals: Connor Nicholson MD [Primary Care Provider] - 1-2 days Time of Disposition: 17:41
[2022-04-01 15:30] LABS: Basophils # (A) 0.1 k/uL (0-0.2); Basophils % (A) 1 %; Eosinophils # (A) 0.3 k/uL (0-0.7); Eosinophils % (A) 4 %; HGB 12.5 gm/dL (13.0-17.5); Lymphocytes % (A) 25 %; MCH 32.2 pg (25.0-35.0); MCHC 34.8 g/dL (31.0-37.0); MCV 92.6 fL (80.0-100.0); Mean Platelet Volume 7.9; Monocytes # (A) 0.4 k/uL (0-1.0); Monocytes % (A) 5 %; Neutrophils # (A) 5.1 k/uL (1.3-7.7); Neutrophils % (A) 64 %; Platelet Count 164 k/uL (150-450); RBC 3.89 m/uL (4.30-5.90); RDW 13.4 % (11.5-15.5)
--- NOTE | 2022-04-01 16:21 | XR ---
EXAMINATION TYPE: XR chest 2V DATE OF EXAM: 04/01/2022 COMPARISON: 03/18/2022 HISTORY: Shortness of breath TECHNIQUE: Frontal and lateral views of the chest are obtained. FINDINGS: Scattered senescent parenchymal changes noted. Hyperinflation compatible with COPD. No evidence for infiltrate. No evidence for atelectasis. Heart size is stable. Mediastinal structures are stable and grossly unremarkable. No evidence for hilar prominence. Degenerative changes dorsal spine. IMPRESSION: 1. No evidence for acute pulmonary disease.
[2022-04-01 16:24] LABS: Albumin 3.9 g/dL (3.5-5.0); Calcium 8.9 mg/dL (8.4-10.2); Magnesium 1.7 mg/dL (1.6-2.3); Potassium 4.6 mmol/L (3.5-5.1); Total Protein 6.5 g/dL (6.3-8.2)
[2022-04-01] MEDS ORDERED: NITROGLYCERIN SL TABS 0.4 MG TAB SUBLINGUAL PRN (17:41)
[2022-04-01 18:06] LABS: Partial Thromboplastin Time 23.7 sec (22.0-30.0); Prothrombin Time 10.3 sec (9.0-12.0)
[2022-04-01] MEDS: NITROGLYCERIN OINT 1 INCH/GM PACKET TOPICAL SCH ×2 (18:25→23:17)
[2022-04-01] MEDS ORDERED: DEXTROSE 50% SYRINGE 50 ML IVP PRN ×2 (18:28)
--- NOTE | 2022-04-01 18:35 | P.HPIM ---
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 Patient is unable to effectively describe his chest pain. He reports being [facility] when he started to feel aggravated because of the staff. He reports a sudden onset of shortness of breath and a "funny feeling in his chest". Patient also reports that he is supposed to get triple CABG but [facility] wont let him. He reports that he has had "quite a few silent heart attacks". Patient reports "[facility] tried to get me to take a cyanide capsule". These symptoms were concerning for patient to come to the ED. Currently, he reports no chest pain. He denies any headache, nausea or vomiting, fever or chills, cough, shortness of breath, palpitations, changes in urination or bowel habits. No changes in appetite or weight. He denies any dizziness, numbness/weakness/tingling of the extremities. In the ED, his vital signs are s table on room air. CBC showed hemoglobin of 12.5 with MCV of 92.6. D-dimer was negative. Coagulation panel was within normal limits. CMP showed a bicarb of 20, BUN of 44, glucose 103. Troponin was 0.015. BNP was 586, chest x-ray was negative. EKG was not available in his chart to review at the time of this note. Patient is admitted for chest pain, rule out acute coronary syndrome with cardiology consultation. Pertinent positives and negatives as discussed in HPI, a complete review of sy stems was performed and all other systems are negative. General: non toxic, no distress, appears at stated age Derm: warm, dry Head: atraumatic, normocephalic, symmetric Eyes: EOMI, no lid lag, anicteric sclera Mouth: no lip lesion, mucus membranes moist Cardiovascular: S1S2 reg, no murmur, positive posterior tibial pulse bilateral, Lungs: CTA bilateral, no rhonchi, no rales , no accessory muscle use Abdominal: soft, nontender to palpation, no guarding, no appreciable organomegaly Ext: no gross muscle atrophy, no edema, no contractures Neuro: CN II-XI grossly intact, no focal neuro deficits Psych: Patient is a poor historian and exhibiting paranoid behaviors #Chest pain and shortness of breath #Prerenal azotemia #Normocytic anemia #Paranoid behavior Chronic conditions: Diabetes mellitus, GERD, history of CHF, chronic respiratory failure Patient presents with chest pain and shortness of breath, sudden onset after feeling aggravated. He appears to be a poor historian but endorses multiple risk factors including CAD needing a triple bypass, diabetes mellitus and history of smoking. Troponins will be trended and ACS will be ruled out. Patient will be restarted on ASA, Lipitor, Plavix and Coreg. Echocardiogram will be ordered. Cardiology will be consulted for further management of this patient. His prerenal azotemia is likely related to use of Lasix and Losartan. We will encourage hydration by mouth and continue to monitor. Patient with Hg of 12.5 which appears to be at baseline. He shows no signs of active bleeding. We will restart ferrous sulfate. Patient denies any psychiatric history. He is however on Olanzapine as part of his home medication, which will be restarted. He does not appear to pose a threat to himself or others at this time. Low dose insulin sliding scale will be ordered along with accuchecks ACHS and hypoglycemic precautions. Restart Pepcid and Carafate. Patient is on an ACEi and beta chance with regard to his history of CHF. Echocardiogram is ordered. He appears euvolemic. Supplemental O2 to maintain O2 saturation > 92%. DuoNeb as needed for SOB/wheezing. Heparin for DVT prophylaxis. Patient will be placed FULL CODE. He does have a guardian. Past Medical History Past Medical History: Cancer, Heart Failure, Diabetes Mellitus Additional Past Medical History / Comment(s): CVA, HTN, HLD Last Myocardial Infarction Date:: 2020 History of Any Multi-Drug Resistant Organisms: None Reported Past Surgical History: Appendectomy, Tonsillectomy Additional Past Surgical History / Comment(s): cataracts, vasectomy, Past Anesthesia/Blood Transfusion Reactions: No Reported Reaction Past Psychological History: Depression Additional Psychological History / Comment(s): Pt resides alone. He states he goes to [facility] 3 times a week for physical therapy and has meals while he is there. He also gets MOW. He has home oxygen and a nebulizer. He receives home care thru [facility]. He can drive. Smoking Status: Former smoker Past Alcohol Use History: None Reported Additional Past Alcohol Use History / Comment(s): Pt started smoking in 1983 nd quit in 1989. Pt states he was a past heavy drinker but quit drinking in 1998. Past Drug Use History: None Reported - Past Family History Father Additional Family Medical History / Comment(s): Father had multiple MIs and from one at the age of 51 yrs. Mother Additional Family Medical History / Comment(s): Mother had a bad heart. Medications and Allergies Home Medications Medication Instructions Recorded Confirmed Type Aspirin EC [Ecotrin Low Dose] 81 mg PO DAILY 01/12/19 04/01/22 History Atorvastatin [Lipitor] 80 mg PO HS 01/12/19 04/01/22 History Clopidogrel Bisulfate [Plavix] 75 mg PO DAILY 07/28/21 04/01/22 History Ferrous Sulfate [Iron (65 MG 325 mg PO DAILY 07/28/21 04/01/22 History Elemental)] Furosemide [Lasix] 40 mg PO DAILY 07/28/21 04/01/22 History Ipratropium-Albuterol Nebulize 3 ml INHALATION RT-QID PRN 07/28/21 04/01/22 H istory [Duoneb 0.5 mg-3 mg/3 ml Soln] Lactulose [Cephulac] 20 gm PO DAILY 07/28/21 04/01/22 History Famotidine [Pepcid] 20 mg PO DAILY 03/18/22 04/01/22 History Sucralfate [Carafate] 1 gm PO ACHS 03/18/22 04/01/22 History Losartan [Cozaar] 12.5 mg PO DAILY #0 03/20/22 04/01/22 Rx Doxycycline Hyclate 100 mg PO BID 04/01/22 04/01/22 History Dulaglutide [Trulicity] 1.5 mg SQ TH 04/01/22 04/01/22 History Insulin Aspart (Niacinamide) 25 units SQ BID 04/01/22 04/01/22 History [Fiasp 100 Unit/ml Flextouch Pen] Insulin Glargine,Hum.rec.anlog 75 units SQ HS 04/01/22 04/01/22 History [Basaglar Kwikpen U-100] Isosorbide Mononitrate ER [Imdur] 30 mg PO DAILY 04/01/22 04/01/22 History OLANZapine [ZyPREXA] 10 mg PO HS 04/01/22 04/01/22 History Topiramate [Topamax] 25 mg PO HS 04/01/22 04/01/22 History carvediloL [Coreg] 25 mg PO BID 04/01/22 04/01/22 History metFORMIN HCL [Glucophage] 500 mg PO BID 04/01/22 04/01/22 History Allergies Allergy/AdvReac Type Severity Reaction Status Date / Time sacubitril [From Entresto] AdvReac made him Verified 03/18/22 15:31 hypotensive valsartan [From Entresto] AdvReac made him Verified 03/18/22 15:31 hypotensive Physical Exam Vitals: Vital Signs Temp Pulse Resp BP Pulse Ox 04/01/22 14:50 98.9 F 77 18 138/68 99 Intake and Output 04/01/22 04/01/22 04/01/22 06:59 14:59 22:59 Other: Weight 122.47 kg Results CBC & Chem 7: 04/01/22 15:26 04/01/22 16:11 Labs: Abnormal Lab Results - Last 24 Hours (Table) 04/01/22 04/01/22 Range/Units 15:26 16:11 RBC 3.89 L (4.30-5.90) m/uL Hgb 12.5 L (13.0-17.5) gm/dL Hct 36.0 L (39.0-53.0) % Carbon Dioxide 20 L (22-30) mmol/L BUN 44 H (9-20) mg/dL Glucose 103 H (74-99) mg/dL
[2022-04-01] MEDS: IPRATROPIUM-ALBUTEROL 3 ML NEB INHALATION PRN (19:45)
[2022-04-01] MEDS: TOPIRAMATE 25 MG TAB PO SCH (20:48)
[2022-04-01] MEDS: carvediloL 12.5 MG TAB PO SCH (20:48)
[2022-04-01] MEDS: ATORVASTATIN 80 MG TAB PO SCH (20:48)
[2022-04-01] MEDS: SUCRALFATE 1 GM TAB PO SCH (20:48)
[2022-04-01] MEDS: OLANZapine 10 MG TAB PO SCH (20:49)
[2022-04-01 22:48] LABS: Glucose,Whole Blood 166 mg/dL (70-110)
[2022-04-01] MEDS: INSULIN ASPART (NovoLOG) 100 UNIT/ML VIAL SQ SCH (22:48)
[2022-04-01] MEDS: HEPARIN SODIUM,PORCINE/PF 5,000 UNIT/0.5 ML SYRINGE SQ SCH (22:56)
[2022-04-02] MEDS: NITROGLYCERIN OINT 1 INCH/GM PACKET TOPICAL SCH ×4 (06:33→23:30)
[2022-04-02] MEDS: SUCRALFATE 1 GM TAB PO SCH ×4 (06:47→21:13)
[2022-04-02 06:50] LABS: Glucose,Whole Blood 150 mg/dL (70-110)
[2022-04-02] MEDS: INSULIN ASPART (NovoLOG) 100 UNIT/ML VIAL SQ SCH ×4 (06:51→21:13)
[2022-04-02] MEDS: carvediloL 12.5 MG TAB PO SCH ×2 (06:53→17:48)
[2022-04-02] MEDS ORDERED: ASPIRIN 325 MG TAB PO SCH (09:00)
[2022-04-02] MEDS: IPRATROPIUM-ALBUTEROL 3 ML NEB INHALATION PRN ×3 (09:07→21:21)
[2022-04-02 09:12] LABS: African American GFR (CKD) 76.7 (60.0-200.0); BUN/Creat Ratio 34.48 Ratio (12.00-20.00); Carbon Dioxide 24.6 mmol/L (20.0-27.5); Chloride 108 mmol/L (96-109); Chol/HDL Ratio 2.96 Ratio; Glucose 160 mg/dL (70-110); LDL Cholesterol,Calculated 40.1 mg/dL (0.0-131.0); Non-African American GFR(CKD) 66.2 (60.0-200.0); Potassium 4.3 mmol/L (3.5-5.5); Sodium 141 mmol/L (135-145)
--- NOTE | 2022-04-02 10:23 | P.CRDCN ---
History of Present Illness Consult date: 04/02/22 Consult reason: chest pain History of present illness: HISTORY OF PRESENT ILLNESS: This is a 66-year-old male with a past medical history significant for coronary artery disease, diabetes, chronic systolic heart failure with previous ejection fraction of 25-30%, cardiomyopathy, hypertension, hyperlipidemia, severe perip heral vascular arterial disease and former nicotine dependence. 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 Patient was recently hospitalized for nausea vomiting. Patient now presents with complaints of a "sick feeling in his chest." He states he also had shortness of breath and it started while he was trying to relax Patient was at [facility] and according to the physician, became diaphoretic, heart rate was found to be in the 30s and pulse ox dropped down to 83%. Patient is known to have 2 cardiac lesions 99-100% blockage and his transmission supervisor has planned for repeat cardiac catheterization and consult with CTS for CABG. Records obtained from [facility]: Cardiac MRI performed on 11/21/2021 revealed moderately dilated left ventricle, globally hypokinetic with EF of 42%. Moderate concentric left ventricular hypertrophy. Intraventricular septum maximally measuring up to 17 mm. Normal right ventricular size, segmental wall motion and systolic function. No myocardial delayed enhancement specifically no evidence of infiltrative disease, infarction or fibrosis. Patient is a poor historian. * EKG reveals sinus mechanism with right bundle branch block,. Mild nonspecific ST changes * Chest xray negative for acute process * Laboratory data: WBC 8.0, hemoglobin 12.5, platelet count 164. Sodium 132, potassium 4.8, chloride 100, CO2 25, BUN 40, creatinine 1.2, troponins nega tive 3. Triglycerides 154, cholesterol 107, LDL 40, HDL 36. A1c 12.3 on 03/18/2022. * Current home cardiac medications include aspirin 81 mg daily, Lipitor 80 mg at night, Plavix 75 mg daily, Lasix 40 mg daily, Imdur 30 mg daily, carvedilol 25 mg twice a day, and losartan 12.5 mg daily * Most recent echocardiogram obtained in March 19, 2022, revealed normal LV size and function * Cardiac catheterization history: February 2018 at [facility]. Revealing ejection fraction 40%, mild diffuse disease in the LAD, mild diffuse disease in the circumflex, moderate diffuse disease in the RCA, proximal lesion with 80% stenosis, chronic total occlusion of the mid RCA with grade 3 collaterals from the left anterior coronary system via septal perforators. At that time it was recommended that the patient be managed with optimal medical therapy and would consider possible PCI of the RCA. No PCI was performed at that time. REVIEW OF SYSTEMS: At the time of my exam: CONSTITUTIONAL: Denies fever or chills. HEENT: Denies blurred vision, vision changes, or eye pain. Denies hemoptysis CARDIOVASCULAR: Denies chest pain. Denies orthopnea. Denies PND. Denies palpitations RESPIRATORY: Denies shortness of breath. GASTROINTESTINAL: Denies abdominal pain. Denies nausea or vomiting. HEMATOLOGIC: Denies bleeding disorders. GENITOURINARY: Denies any blood in urine. SKIN: Denies pruitis. Denies rash. PHYSICAL EXAM: VITAL SIGNS: Reviewed. GENERAL: Well-developed in no acute distress. HEENT: Head is normocephalic. Pupils are equal, round. Sclerae anicteric. Mucous membranes of the mouth are moist. Neck supple. No JVD or thyromegaly LUNGS: Respirations even and unlabored. Lungs essentially clear to auscultation bilaterally. HEART: Regular rate and rhythm. S1 and S2 heard. ABDOMEN: Soft. Nondistended. Nontender. EXTREMITIES: Normal range of motion. No clubbing or cyanosis. Peripheral pulses intact. No lower extremity edema NEUROLOGIC: Awake and alert. Oriented x 3. ASSESSMENT: Chest pain with negative troponins, acute coronary syndrome ruled out Coronary artery disease with known coronary artery blockages need to be addressed Hypertension Hyperlipidemia Ischemic cardiomyopathy Chronic systolic heart failure with reduced ejection fraction, currently euvolemic Diabetes mellitus type II, uncontrolled with A1c of 12.3 Former nicotine dependence PLAN: No need to repeat echocardiogram this was performed in July 2021 [facility]ume [facility] Recommend proceeding with a cardiac catheterization tomorrow. Discussed with patient and he is agreeable. Nursing will need to obtain consent from his guardian. Further recommendations as patient progresses Thank you kindly for this consultation. Nurse practitioner note has been reviewed by physician. Signing provider agrees with the documented findings, assessment, and plan of care. Past Medical History Past Medical History: Cancer, Heart Failure, Diabetes Mellitus Additional Past Medical History / Comment(s): CVA, HTN, HLD Last Myocardial Infarction Date:: 2020 History of Any Multi-Drug Resistant Organisms: None Reported Past Surgical History: Appendectomy, Tonsillectomy Additional Past Surgical History / Comment(s): cataracts, vasectomy, Past Anesthesia/Blood Transfusion Reactions: No Reported Reaction Past Psychological History: Depression Additional Psychological History / Comment(s): Pt resides alone. He states he goes to [facility] 3 times a week for physical therapy and has meals while he is there. He also gets MOW. He has home oxygen and a nebulizer. He receives home care thru [facility]. He can drive. Smoking Status: Former smoker Past Alcohol Use History: None Reported Additional Past Alcohol Use History / Comment(s): Pt started smoking in 1983 nd quit in 1989. Pt states he was a past heavy drinker but quit drinking in 1998. Past Drug Use History: None Reported - Past Family History Father Additional Family Medical History / Comment(s): Father had multiple MIs and from one at the age of 51 yrs. Mother Additional Family Medical History / Comment(s): Mother had a bad heart. Medications and Allergies Home Medications Medication Instructions Recorded Confirmed Type Aspirin EC [Ecotrin Low Dose] 81 mg PO DAILY 01/12/19 04/01/22 History Atorvastatin [Lipitor] 80 mg PO HS 01/12/19 04/01/22 History Clopidogrel Bisulfate [Plavix] 75 mg PO DAILY 07/28/21 04/01/22 History Ferrous Sulfate [Iron (65 MG 325 mg PO DAILY 07/28/21 04/01/22 History Elemental)] Furosemide [Lasix] 40 mg PO DAILY 07/28/21 04/01/22 History Ipratropium-Albuterol Nebulize 3 ml INHALATION RT-QID PRN 07/28/21 04/01/22 History [Duoneb 0.5 mg-3 mg/3 ml Soln] Lactulose [Cephulac] 20 gm PO DAILY 07/28/21 04/01/22 History Famotidine [Pepcid] 20 mg PO DAILY 03/18/22 04/01/22 History Sucralfate [Carafate] 1 gm PO ACHS 03/18/22 04/01/22 History Losartan [Cozaar] 12.5 mg PO DAILY #0 03/20/22 04/01/22 Rx Doxycycline Hyclate 100 mg PO BID 04/01/22 04/01/22 History Dulaglutide [Trulicity] 1.5 mg SQ TH 04/01/22 04/01/22 History Insulin Aspart (Niacinamide) 25 units SQ BID 04/01/22 04/01/22 History [Fiasp 100 Unit/ml Flextouch Pen] Insulin Glargine,Hum.rec.anlog 75 units SQ HS 04/01/22 04/01/22 History [Basaglar Kwikpen U-100] Isosorbide Mononitrate ER [Imdur] 30 mg PO DAILY 04/01/22 04/01/22 History OLANZapine [ZyPREXA] 10 mg PO HS 04/01/22 04/01/22 History Topiramate [Topamax] 25 mg PO HS 04/01/22 04/01/22 History carvediloL [Coreg] 25 mg PO BID 04/01/22 04/01/22 History metFORMIN HCL [Glucophage] 500 mg PO BID 04/01/22 04/01/22 History Allergies Allergy/AdvReac Type Severity Reaction Status Date / Time sacubitril [From Entresto] AdvReac made him Verified 03/18/22 15:31 hypotensive valsartan [From Entresto] AdvReac made him Verified 03/18/22 15:31 hypotensive Physical Exam Vitals: Vital Signs Temp Pulse Pulse Pulse Resp BP BP 04/02/22 06:50 97.9 F 82 16 159/75 04/02/22 01:59 97.5 F L 85 18 147/74 04/01/22 19:57 80 04/01/22 19:47 83 04/01/22 19:03 98.3 F 85 18 180/87 04/01/22 18:25 98 F 72 18 142/71 04/01/22 14:50 98.9 F 77 18 138/68 Pulse Ox 04/02/22 06:50 100 04/02/22 01:59 97 04/01/22 19:57 04/01/22 19:47 100 04/01/22 19:03 99 04/01/22 18:25 98 04/01/22 14:50 99 Intake and Output 04/01/22 04/02/22 04/02/22 22:59 06:59 14:59 Intake Total 0 Balance 0 Intake: Oral 0 Other: Voiding Method Toilet # Voids 1 1 Weight 122.47 kg Results 04/01/22 15:26 04/02/22 06:13 Cardiac Enzymes 04/01/22 04/01/22 04/01/22 Range/Units 16:11 16:11 19:33 AST 32 (17-59) U/L Troponin I 0.015 0.021 (0.000-0.034) ng/mL 04/01/22 Range/Units 22:37 AST (17-59) U/L Troponin I 0.021 (0.000-0.034) ng/mL Coagulation 04/01/22 Range/Units 15:26 PT 10.3 (9.0-12.0) sec APTT 23.7 (22.0-30.0) sec CBC 04/01/22 Range/Units 15:26 WBC 8.0 (3.8-10.6) k/uL RBC 3.89 L (4.30-5.90) m/uL Hgb 12.5 L (13.0-17.5) gm/dL Hct 36.0 L (39.0-53.0) % Plt Count 164 (150-450) k/uL Comprehensive Metabolic Panel 04/01/22 Range/Units 16:11 Sodium 138 (137-145) mmol/L Potassium 4.6 (3.5-5.1) mmol/L Chloride 107 (98-107) mmol/L Carbon Dioxide 20 L (22-30) mmol/L BUN 44 H (9-20) mg/dL Creatinine 1.24 (0.66-1.25) mg/dL Glucose 103 H (74-99) mg/dL Calcium 8.9 (8.4-10.2) mg/dL AST 32 (17-59) U/L ALT 27 (4-49) U/L Alkaline Phosphatase 55 (38-126) U/L Total Protein 6.5 (6.3-8.2) g/dL Albumin 3.9 (3.5-5.0) g/dL Current Medications Generic Name Dose Route Start Last Admin Trade Name Freq PRN Reason Stop Dose Admin Albuterol/Ipratropium 3 ml 04/01/22 18:23 04/01/22 19:45 Ipratropium-Albuterol 3 Ml Neb INHALATION 3 ml RT-QID PRN Administration Shortness Of Breath Aspirin 81 mg 04/02/22 09:00 Aspirin 81 Mg PO DAILY [facility] Atorvastatin Calcium 80 mg 04/01/22 21:00 04/01/22 20:48 Atorvastatin 80 Mg Tab PO 80 mg HS [facility] Administration Carvedilol 25 mg 04/01/22 19:00 04/02/22 06:53 Carvedilol 12.5 Mg Tab PO 25 mg BID-W/MEALS [facility] Administration Clopidogrel Bisulfate 75 mg 04/02/22 09:00 Clopidogrel 75 Mg Tab PO DAILY [facility] Dextrose/Water 50 ml 04/01/22 18:28 Dextrose 50% Syringe 50 Ml IVP PER PROTOCOL PRN Hypoglycemia Protocol Dextrose/Water 25 ml 04/01/22 18:28 Dextrose 50% Syringe 50 Ml IVP PER PROTOCOL PRN Hypoglycemia Protocol Famotidine 20 mg 04/02/22 09:00 Famotidine 20 Mg Tab PO DAILY [facility] Ferrous Sulfate 325 mg 04/02/22 09:00 Ferrous Sulfate 325 Mg Tab PO DAILY [facility] Furosemide 40 mg 04/02/22 09:00 Furosemide 40 Mg Tab PO DAILY [facility] Heparin Sodium (Porcine) 5,000 unit 04/02/22 00:00 04/01/22 22:56 Heparin Sodium,Porcine/Pf 5,000 Unit/0.5 Ml Syringe SQ 5,000 unit Q8HR [facility] Administration Insulin Aspart 0 unit 04/01/22 21:00 04/02/22 06:51 Insulin Aspart (Novolog) 100 Unit/Ml Vial SQ Not Given ACHS [facility] Protocol Isosorbide Mononitrate 30 mg 04/02/22 09:00 Isosorbide Mononitrate Er 30 Mg Tab.Er.24h PO DAILY [facility] Lactulose 20 gm 04/02/22 09:00 Lactulose 20 Gm/30 Ml Cup PO DAILY [facility] Losartan Potassium 12.5 mg 04/02/22 09:00 Losartan 25 Mg Tab PO DAILY [facility] Nitroglycerin 0.4 mg 04/01/22 17:41 Nitroglycerin Sl Tabs 0.4 Mg Tab SUBLINGUAL Q5M PRN Chest Pain Nitroglycerin 1 inch 04/01/22 18:00 04/02/22 06:33 Nitroglycerin Oint 1 Inch/Gm Packet TOPICAL Not Given Q6HR [facility] Olanzapine 10 mg 04/01/22 21:00 04/01/22 20:49 Olanzapine 10 Mg Tab PO 10 mg HS [facility] Administration Sucralfate 1 gm 04/01/22 21:00 04/02/22 06:47 Sucralfate 1 Gm Tab PO 1 gm ACHS [facility] Administration Topiramate 25 mg 04/01/22 21:00 04/01/22 20:48 Topiramate 25 Mg Tab PO 25 mg HS [facility] Administration Intake and Output 04/01/22 04/02/22 04/02/22 22:59 06:59 14:59 Intake Total 0 Balance 0 Intake: Oral 0 Other: Voiding Method Toilet # Voids 1 1 Weight 122.47 kg 04/01/22 15:26 04/01/22 16:11
[2022-04-02] MEDS ORDERED: NITROGLYCERIN SL TABS 0.4 MG TAB SUBLINGUAL PRN (12:02)
[2022-04-02] MEDS ORDERED: ALPRAZolam 0.5 MG TAB PO PRN (12:02)
[2022-04-02] MEDS ORDERED: ALPRAZolam 0.25 MG TAB PO PRN (12:02)
[2022-04-02 12:31] LABS: Glucose,Whole Blood 154 mg/dL (70-110)
[2022-04-02] MEDS: HEPARIN SODIUM,PORCINE/PF 5,000 UNIT/0.5 ML SYRINGE SQ SCH ×3 (12:51→23:30)
[2022-04-02] MEDS: ASPIRIN 81 MG PO SCH (13:09)
[2022-04-02] MEDS: FUROSEMIDE 40 MG TAB PO SCH (13:09)
[2022-04-02] MEDS: LOSARTAN 25 MG TAB PO SCH (13:09)
[2022-04-02] MEDS: CLOPIDOGREL 75 MG TAB PO SCH (13:09)
[2022-04-02] MEDS: FAMOTIDINE 20 MG TAB PO SCH (13:10)
[2022-04-02] MEDS: FERROUS SULFATE 325 MG TAB PO SCH (13:10)
[2022-04-02] MEDS: ISOSORBIDE MONONITRATE ER 30 MG TAB.ER.24H PO SCH (13:10)
[2022-04-02] MEDS: LACTULOSE 20 GM/30 ML CUP PO SCH (13:11)
--- NOTE | 2022-04-02 13:47 | P.PN ---
Subjective Progress Note Date: 04/02/22 Patient was seen and examined. No acute events overnight. Plans for cardiac cath tomorrow. General: non toxic, no distress, appears at stated age Derm: warm, dry Head: atraumatic, normocephalic, symmetric Eyes: EOMI, no lid lag, anicteric sclera Mouth: no lip lesion, mucus membranes moist Cardiovascular: S1S2 reg, no murmur Lungs: CTA bilateral, no rhonchi, no rales , no accessory muscle use Ext: no gross muscle atrophy, no edema, no contractures Neuro: no focal neuro deficits Psych: Patient is a poor historian and exhibiting paranoid behaviors #Chest pain and shortness of breath #Prerenal azotemia #Normocytic anemia #Paranoid behavior Chronic conditions: Diabetes mellitus, GERD, history of CHF, chronic respiratory failure Patient presents with chest pain and shortness of breath, sudden onset after feeling aggravated. He appears to be a poor historian but endorses multiple risk factors including CAD needing a triple bypass, diabetes mellitus and history of smoking. ACS ruled out. Patient will be restarted on ASA, Lipitor, Plavix and Coreg. Plans for cardiac cath tomorrow. His prerenal azotemia is likely related to use of Lasix and Losartan. We will encourage hydration by mouth and continue to monitor. Patient with Hg of 12.5 which appears to be at baseline. He shows no signs of active bleeding. We will restart ferrous sulfate. Patient denies any psychiatric history. He is however on Olanzapine as part of his home medication, which will be restarted. He does not appear to pose a threat to himself or others at this time. Low dose insulin sliding scale will be ordered along with accuchecks ACHS and hypoglycemic precautions. Restart Pepcid and Carafate. Patient is on an ACEi and beta chance with regard to his history of CHF. He appears euvolemic. Supplemental O2 to maintain O2 saturation > 92%. DuoNeb as needed for SOB/wheezing. Objective - Vital Signs Vital signs: Vital Signs Temp 97.9 F 04/02/22 06:50 Pulse 80 04/02/22 09:17 Resp 16 04/02/22 06:50 BP 159/75 04/02/22 06:50 Pulse Ox 100 04/02/22 06:50 FiO2 Intake & Output 12/04/02/22 04/02/22 18:59 06:59 18:59 Intake Total 0 Balance 0 Weight 122.47 kg Intake: Oral 0 Other: Voiding Method Toilet # Voids 1 - Labs CBC & Chem 7: 04/01/22 15:26 04/02/22 06:13 Labs: Abnormal Lab Results - Last 24 Hours (Table) 04/01/22 04/01/22 04/01/22 Range/Units 15:26 16:11 22:47 RBC 3.89 L (4.30-5.90) m/uL Hgb 12.5 L (13.0-17.5) gm/dL Hct 36.0 L (39.0-53.0) % Carbon Dioxide 20 L (22-30) mmol/L Anion Gap (10.00-18.00) mmol/L BUN 44 H (9-20) mg/dL BUN/Creatinine Ratio (12.00-20.00) Ratio Glucose 103 H (74-99) mg/dL POC Glucose (mg/dL) 166 H (70-110) mg/dL Triglycerides (0.00-149.00) mg/dL HDL Cholesterol (40.00-60.00) mg/dL 04/02/22 04/02/22 04/02/22 Range/Units 06:13 06:49 12:28 RBC (4.30-5.90) m/uL Hgb (13.0-17.5) gm/dL Hct (39.0-53.0) % Carbon Dioxide (22-30) mmol/L Anion Gap 8.60 L (10.00-18.00) mmol/L BUN 40.0 H (9-20) mg/dL BUN/Creatinine Ratio 34.48 H (12.00-20.00) Ratio Glucose 160 H (74-99) mg/dL POC Glucose (mg/dL) 150 H 154 H (70-110) mg/dL Triglycerides 154.00 H (0.00-149.00) mg/dL HDL Cholesterol 36.10 L (40.00-60.00) mg/dL
[2022-04-02 16:46] LABS: Glucose,Whole Blood 177 mg/dL (70-110)
[2022-04-02 21:01] LABS: Glucose,Whole Blood 190 mg/dL (70-110)
[2022-04-02] MEDS: ATORVASTATIN 80 MG TAB PO SCH (21:13)
[2022-04-02] MEDS: OLANZapine 10 MG TAB PO SCH (21:13)
[2022-04-02] MEDS: TOPIRAMATE 25 MG TAB PO SCH (21:13)
[2022-04-03] MEDS: NITROGLYCERIN OINT 1 INCH/GM PACKET TOPICAL SCH ×2 (05:49→11:51)
[2022-04-03] MEDS ORDERED: ATORVASTATIN 80 MG TAB PO ONE (06:00)
[2022-04-03] MEDS ORDERED: ASPIRIN 325 MG TAB PO ONE (06:00)
[2022-04-03 06:05] LABS: Glucose,Whole Blood 155 mg/dL (70-110)
[2022-04-03] MEDS: SUCRALFATE 1 GM TAB PO SCH ×2 (06:41→12:37)
[2022-04-03] MEDS: carvediloL 12.5 MG TAB PO SCH (06:41)
[2022-04-03] MEDS: INSULIN ASPART (NovoLOG) 100 UNIT/ML VIAL SQ SCH ×2 (06:42→11:51)
[2022-04-03] MEDS ORDERED: HEPARIN SODIUM,PORCINE 2,500 UNIT in SODIUM CHLORIDE 0.9% 250 ML IRRIGATION PRN (07:00)
[2022-04-03] MEDS ORDERED: HEPARIN SODIUM,PORCINE 10,000 UNIT in SODIUM CHLORIDE 0.9% 1,000 ML IRRIGATION PRN (07:00)
[2022-04-03] MEDS: ASPIRIN 81 MG PO SCH (07:23)
[2022-04-03] MEDS: IPRATROPIUM-ALBUTEROL 3 ML NEB INHALATION PRN ×3 (07:38→15:35)
[2022-04-03] MEDS: HEPARIN SODIUM,PORCINE/PF 5,000 UNIT/0.5 ML SYRINGE SQ SCH ×2 (08:46→16:32)
[2022-04-03] MEDS: LOSARTAN 25 MG TAB PO SCH (08:46)
[2022-04-03] MEDS: FERROUS SULFATE 325 MG TAB PO SCH (08:47)
[2022-04-03] MEDS: ISOSORBIDE MONONITRATE ER 30 MG TAB.ER.24H PO SCH (08:47)
[2022-04-03] MEDS: FAMOTIDINE 20 MG TAB PO SCH (08:47)
[2022-04-03] MEDS: CLOPIDOGREL 75 MG TAB PO SCH (08:47)
[2022-04-03] MEDS ORDERED: VERAPAMIL 2.5 MG/ML 2 ML AMP ONE (09:38)
[2022-04-03] MEDS ORDERED: IV FLUID CONTINUATION 800 ML IV ONE (10:30)
[2022-04-03] MEDS ORDERED: fentaNYL (PF) 50 MCG/ML 2 ML AMP ONE (10:31)
[2022-04-03] MEDS ORDERED: HEPARIN SODIUM 1,000 UN/ML (10ML VL) ONE (10:32)
[2022-04-03] MEDS ORDERED: fentaNYL (PF) 50 MCG/ML 2 ML AMP IV ONE (10:37)
[2022-04-03] MEDS ORDERED: MIDAZOLAM 2 MG/2 ML VIAL IV ONE (10:37)
[2022-04-03] MEDS ORDERED: LIDOCAINE 1% INJ 10MG/ML (5 ML VIAL-PF) SQ ONE (10:38)
[2022-04-03] MEDS ORDERED: VERAPAMIL SYRINGE (5 MG/10 ML) INTRAARTER ONE (10:39)
[2022-04-03] MEDS ORDERED: HEPARIN SODIUM 1,000 UN/ML (10ML VL) IV ONE (10:43)
[2022-04-03] MEDS ORDERED: IOPAMIDOL-370 125ML BTL INJ ONE (10:53)
[2022-04-03] MEDS ORDERED: RX INFO: IV CONTRAST WAS GIVEN 1 EACH MISC MISCELLANE PRN (11:00)
[2022-04-03] MEDS ORDERED: SODIUM CHLORIDE 0.9% 1,000 ML IV SCH (11:00)
--- NOTE | 2022-04-03 11:07 | P.PCN ---
Date of Procedure: 04/03/22 Operative Findings: CARDIAC CATHETERIZATION PERFORMING PHYSICIAN: John Flores MD, RPVI PROCEDURE PERFORMED: 1. Selective right and left coronary angiogram 2. Left heart catheterization INDICATION: Chest discomfort concerning for unstable angina in this 66-year-old gentleman was known CAD as well as hypertension and dyslipidemia and diabetes. COMPLICATION: None APPROACH: Right radial artery LEVEL OF SEDATION: Moderate with a sedation length of 12 minutes PROCEDURE DESCRIPTION: After obtaining an informed consent, the patient was brought to cardiac labels molder. Local anesthesia was performed using lidocaine subcutaneously. The right radial artery was cannulated using Seldinger technique, the guidewire passed easily, following that we advanced a 5-Serbian sheath dilator assembly, the wire and dilator were removed and sheath was flushed. Following that, 2 mg of verapamil along with 5000 unit heparin were given. Selective right and left coronary angiogram using a 6-Serbian JR4 and JL 3.5 catheters. Following that we did left heart catheterization using 6-Serbian pigtail catheter. The procedure was completed there was no complication. SELECTIVE CORONARY ANGIOGRAM: The right coronary artery: Large caliber vessel and a dominant vessel. The RCA is chronically occluded in the distal portion and fills by collateral from the left coronary system. The RCA is calcified. Left main: The left main is short but appears to be angiographically normal. Bifurcates into an LCx and LAD The left circumflex: Large caliber vessel nondominant vessel. The LCx proximally appears to have mil d disease only. It gives rises into a large OM branch which has intermediate lesion appears to be in the range of 40-50%. The left anterior descending artery: Large-caliber vessel. The LAD in the midportion has mild disease only. Gives rises into the first diagonal branch which has an ostial lesion appears to be in the range of 50% and second diagonal branch which has mild disease only. HEMODYNAMICS: The LVEDP was 6 mmHg was no significant gradient across aortic valve CONCLUSION: 1. 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 Intermediate disease involving OM1 of the LCx POSTPROCEDURE MANAGEMENT: Giving the above anatomy, I would advise maximize medical treatment including aggressive cholesterol control and risk factors modification as well as anti- ischemic medication
[2022-04-03] MEDS: FUROSEMIDE 40 MG TAB PO SCH (11:15)
[2022-04-03] MEDS: LACTULOSE 20 GM/30 ML CUP PO SCH (11:15)
[2022-04-03] MEDS ORDERED: ISOSORBIDE MONONITRATE ER 30 MG TAB.ER.24H PO STA (11:18)
[2022-04-03 11:27] LABS: Glucose,Whole Blood 137 mg/dL (70-110)
--- NOTE | 2022-04-03 12:25 | P.DS ---
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 Patient is unable to effectively describe his chest pain. He r eports being at [facility] when he started to feel aggravated because of the staff. He reports a sudden onset of shortness of breath and a "funny feeling in his chest". Patient also reports that he is supposed to get triple CABG but [facility] wont let him. He reports that he has had "quite a few silent heart attacks". Patient reports "[facility] tried to get me to take a cyanide capsule". These symptoms were concerning for patient to come to the ED. Currently, he reports no chest pain. He denies any headache, nausea or vomiting, fever or chills, cough, shortness of breath, palpitations, changes in urination or bowel habits. No changes in appetite or weight. He denies any dizziness, numbness/weakness/tingling of the extremities. In the ED, his vital signs are stable on room air. CBC showed hemoglobin of 12.5 with MCV of 92.6. D-dimer was negative. Coagulation panel was within normal limits. CMP showed a bicarb of 20, BUN of 44, glucose 103. Troponin was 0.015. BNP was 586, chest x-ray wa s negative. EKG was not available in his chart to review at the time of this note. Patient is admitted for chest pain, rule out acute coronary syndrome with cardiology consultation. Troponins were trended and ACS was ruled out. Cardiology was consulted and recommended cardiac cath. Records were obtained including: Most recent echocardiogram obtained in March 19, 2022, revealed normal LV size and function Cardiac catheterization history: February [address] [facility]. Revealing ejection fraction 40%, mild diffuse disease in the LAD, mild diffuse disease in the circumflex, moderate diffuse disease in the RCA, proximal lesion with 80% stenosis, chronic total occlusion of the mid RCA with grade 3 collaterals from the left anterior coronary system via septal perforators. At that time it was recommended that the patient be managed with optimal medical therapy and would consider possible PCI of the RCA. No PCI was performed at that time. Cardiac cath was done on April 03 which showed chronic total occlusion of the distal RCA which fills by contralateral collaterals and Intermediate disease involving OM1 of the LCx. Patient was seen and examined after his cardiac cath. He denied any chest pain, shortness breath or palpitations. No nausea or vomiting. No fever or chills. Pertinent studies include chest x-ray. Pertinent procedures include cardiac cath. General: non toxic, no distress, appears at stated age Derm: warm, dry Head: atraumatic, normocephalic, symmetric Eyes: EOMI, no lid lag, anicteric sclera Mouth: no lip lesion, mucus membranes moist Cardiovascular: S1S2 reg, no murmur Lungs: CTA bilateral, no rhonchi, no rales , no accessory muscle use Ext: no gross muscle atrophy, no edema, no contractures Neuro: no focal neuro deficits Psych: Patient is a poor historian and exhibiting paranoid behaviors Discharge diagnosis: #Chest pain and shortness of breath #Prerenal azotemia #Normocytic anemia #Paranoid behavior Chronic conditions: Diabetes mellitus, GERD, history of CHF, chronic respiratory failure Patient will be discharged home with the following instructions: Diet: Cardiac FU PCP within 1-2 days of DC. FU with Cardiology within 1 week of DC. Take all medications as advised. Repeat BMP in 3 days and follow up results with your PCP. Come back to the ED or call 911 for worsening chest pain, SOB, palpitations or lightheadedness. Patient Condition at Discharge: Stable Plan - Discharge Summary Discharge Rx Participant: No New Discharge Prescriptions: New Nitroglycerin Sl Tabs [Nitrostat] 0.4 mg SUBLINGUAL Q5M PRN #30 tab PRN Reason: Chest Pain Isosorbide Mononitrate ER [Imdur] 60 mg PO DAILY #30 tab Continue Atorvastatin [Lipitor] 80 mg PO HS Aspirin EC [Ecotrin Low Dose] 81 mg PO DAILY Lactulose [Cephulac] 20 gm PO DAILY Ipratropium-Albuterol Nebulize [Duoneb 0.5 mg-3 mg/3 ml Soln] 3 ml INHALATION RT-QID PRN PRN Reason: Shortness Of Breath Furosemide [Lasix] 40 mg PO DAILY Clopidogrel Bisulfate [Plavix] 75 mg PO DAILY Famotidine [Pepcid] 20 mg PO DAILY Sucralfate [Carafate] 1 gm PO ACHS metFORMIN HCL [Glucophage] 500 mg PO BID Insulin Aspart (Niacinamide) [Fiasp 100 Unit/ml Flextouch Pen] 25 units SQ BID carvediloL [Coreg] 25 mg PO BID Dulaglutide [Trulicity] 1.5 mg SQ TH Ferrous Sulfate [Iron (65 MG Elemental)] 325 mg PO DAILY Losartan [Cozaar] 12.5 mg PO DAILY #0 Topiramate [Topamax] 25 mg PO HS OLANZapine [ZyPREXA] 10 mg PO HS Insulin Glargine,Hum.rec.anlog [Basaglar Kwikpen U-100] 75 units SQ HS Discontinued Isosorbide Mononitrate ER [Imdur] 30 mg PO DAILY Doxycycline Hyclate 100 mg PO BID Discharge Medication List Aspirin EC [Ecotrin Low Dose] 81 mg PO DAILY 01/12/19 [History] Atorvastatin [Lipitor] 80 mg PO HS 01/12/19 [History] Clopidogrel Bisulfate [Plavix] 75 mg PO DAILY 07/28/21 [History] Ferrous Sulfate [Iron (65 MG Elemental)] 325 mg PO DAILY 07/28/21 [History] Furosemide [Lasix] 40 mg PO DAILY 07/28/21 [History] Ipratropium-Albuterol Nebulize [Duoneb 0.5 mg-3 mg/3 ml Soln] 3 ml INHALATION RT-QID PRN 07/28/21 [History] Lactulose [Cephulac] 20 gm PO DAILY 07/28/21 [History] Famotidine [Pepcid] 20 mg PO DAILY 03/18/22 [History] Sucralfate [Carafate] 1 gm PO ACHS 03/18/22 [History] Losartan [Cozaar] 12.5 mg PO DAILY #0 03/20/22 [Rx] Dulaglutide [Trulicity] 1.5 mg SQ TH 04/01/22 [History] Insulin Aspart (Niacinamide) [Fiasp 100 Unit/ml Flextouch Pen] 25 units SQ BID 04/01/22 [History] Insulin Glargine,Hum.rec.anlog [Basaglar Kwikpen U-100] 75 units SQ HS 04/01/22 [History] OLANZapine [ZyPREXA] 10 mg PO HS 04/01/22 [History] Topiramate [Topamax] 25 mg PO HS 04/01/22 [History] carvediloL [Coreg] 25 mg PO BID 04/01/22 [History] metFORMIN HCL [Glucophage] 500 mg PO BID 04/01/22 [History] Isosorbide Mononitrate ER [Imdur] 60 mg PO DAILY #30 tab 04/03/22 [Rx] Nitroglycerin Sl Tabs [Nitrostat] 0.4 mg SUBLINGUAL Q5M PRN #30 tab 04/03/22 [Rx] Follow up Appointment(s)/Referral(s): John Flores MD [STAFF PHYSICIAN] - 1 Week Connor Nicholson MD [Primary Care Provider] - 1-2 days Ambulatory/Diagnostic Orders: Basic Metabolic Panel [LAB.AMB] Time Frame: 3 Days, Location: None Selected Activity/Diet/Wound Care/Special Instructions: Diet: Cardiac FU PCP within 1-2 days of DC. FU with Cardiology within 1 week of DC. Take all medications as advised. Come back to the ED or call 911 for worsening chest pain, SOB, palpitations or lightheadedness. Discharge Disposition: HOME SELF-CARE
[2022-04-03 15:12] VITALS: BP 103/66; RESP 19; TEMP 97.4
[2022-04-03 15:38] VITALS: PULSE 72
[2022-04-04] MEDS ORDERED: ISOSORBIDE MONONITRATE ER 60 MG TAB.ER.24H PO SCH (09:00)
[2022-04-09] MEDS ORDERED: NON FORMULARY DRUG (Dulaglutide [Trulicity] 1.5 MG/0.5 ML Each) SQ SCH (08:39)
== END 2022-04-03 16:57 | disposition home or self-care (01) ==
LOC: EC 14:43 → 6NMEDSUR 17:41
PROVIDERS: ADMIT Family Medicine; ATTEND Family Medicine
DX: R07.89 Other chest pain (principal); D64.9 Anemia, unspecified; I11.0 Hypertensive heart disease with heart failure; F22 Delusional disorders; I50.22 Chronic systolic (congestive) heart failure; I45.10 Unspecified right bundle-branch block; R79.89 Other specified abnormal findings of blood chemistry; I25.5 Ischemic cardiomyopathy; E11.65 Type 2 diabetes mellitus with hyperglycemia; E78.5 Hyperlipidemia, unspecified; F32.A Depression, unspecified; I25.2 Old myocardial infarction; K21.9 Gastro-esophageal reflux disease without esophagitis; I25.10 Atherosclerotic heart disease of native coronary artery without angina pectoris; J96.10 Chronic respiratory failure, unspecified whether with hypoxia or hypercapnia; I25.82 Chronic total occlusion of coronary artery; Z79.82 Long term (current) use of aspirin; Z79.899 Other long term (current) drug therapy; Z79.02 Long term (current) use of antithrombotics/antiplatelets; Z79.4 Long term (current) use of insulin; Z86.73 Personal history of transient ischemic attack (TIA), and cerebral infarction without residual deficits; Z98.42 Cataract extraction status, left eye; Z98.41 Cataract extraction status, right eye; Z98.52 Vasectomy status; Z87.891 Personal history of nicotine dependence; Z82.49 Family history of ischemic heart disease and other diseases of the circulatory system; Z79.84 Long term (current) use of oral hypoglycemic drugs
CPT/HCPCS: 96372 ×3; 99285; 36415; 94640 ×5; 94760 ×3; 85379; 83880; 80061; 80053; 80048; 83735; 84484; 85025; 85610; 85730; 71046 ×2; 99214; 93458; G0378 ×3; J2250; J2001; J3010; J1644 ×4; Q9967

== ENCOUNTER 2022-04-22 11:33 | Observation (INO) | payer OTHER ==
[2022-04-22] MEDS ORDERED: SODIUM CHLORIDE 0.9% 1,000 ML IV STA (12:30)
[2022-04-22 13:00] LABS: Basophils % (A) 0 %; Eosinophils # (A) 0.2 k/uL (0-0.7); Eosinophils % (A) 2 %; HCT 34.7 % (39.0-53.0); Lymphocytes # (A) 1.1 k/uL (1.0-4.8); Lymphocytes % (A) 12 %; MCH 32.6 pg (25.0-35.0); MCHC 34.5 g/dL (31.0-37.0); MCV 94.4 fL (80.0-100.0); Mean Platelet Volume 8.7; Monocytes # (A) 0.3 k/uL (0-1.0); Monocytes % (A) 3 %; Neutrophils # (A) 7.2 k/uL (1.3-7.7); Neutrophils % (A) 81 %; Platelet Count 137 k/uL (150-450); RBC 3.67 m/uL (4.30-5.90); RDW 14.1 % (11.5-15.5); WBC 8.9 k/uL (3.8-10.6)
[2022-04-22 13:09] LABS: Albumin 3.8 g/dL (3.5-5.0); Calcium 8.5 mg/dL (8.4-10.2); Magnesium 1.5 mg/dL (1.6-2.3); Potassium 4.8 mmol/L (3.5-5.1); Total Bilirubin 0.8 mg/dL (0.2-1.3); Total Protein 6.3 g/dL (6.3-8.2)
[2022-04-22 13:12] LABS: Partial Thromboplastin Time 23.8 sec (22.0-30.0); Prothrombin Time 10.4 sec (9.0-12.0)
[2022-04-22] MEDS ORDERED: MAGNESIUM SULFATE-D5W PMX 1 GM in DEXTROSE/WATER 1 100ML.BAG IVPB ONE (13:18)
--- NOTE | 2022-04-22 13:19 | XR ---
EXAMINATION TYPE: XR chest 2V DATE OF EXAM: 04/22/2022 COMPARISON: 04/01/2022 TECHNIQUE: PA and lateral views submitted. HISTORY: Ankle pain FINDINGS: The lungs are clear and there is no pneumothorax, pleural effusion, or focal pneumonia. Heart size slightly prominent and no overt failure. Osseous structures demonstrate hypertrophic and degenerative changes of the spine. IMPRESSION: 1. No acute process.
[2022-04-22] MEDS ORDERED: NALOXONE 0.4 MG/ML 1 ML VIAL IV PRN (14:23)
--- NOTE | 2022-04-22 14:23 | ED ---
General Adult HPI - General Chief complaint: Neuro Symptoms/Deficit Stated complaint: near syncope Source: EMS Mode of arrival: EMS Limitations: no limitations - History of Present Illness Initial comments: 66-year-old male past medical history CVA, hypertension, hyperlipidemia, coronary artery disease who presents to the emergency department with presyncope, vomiting and hypotension. Patient states that he took all of his morning medication. They make him feel nauseated. He then went on the [facility] bus. [place] even more nauseated and started vomiting. He became very presync opal. He admits that he was having a little bit of chest discomfort. No headache or visual changes. Denies abdominal pain. No changes in his urination. Blood pressure found to be markedly low measuring 78/32. Patient states that he has had low blood pressure and he takes several medications for his heart. Patient was just hospitalized the end of March and had a heart cath which demonstrated a totally occluded RCA. Patient states he has been eating and drinking without any changes. Continues to urinate and have normal bowel movements. No black or bloody stools. No other alleviating, precipitating or modifying factors - Related Data Home Medications Medication Instructions Recorded Confirmed Aspirin EC [Ecotrin Low Dose] 81 mg PO DAILY 01/12/19 04/22/22 Atorvastatin [Lipitor] 80 mg PO HS 01/12/19 04/22/22 Clopidogrel Bisulfate [Plavix] 75 mg PO DAILY 07/28/21 04/22/22 Ferrous Sulfate [Iron (65 MG 325 mg PO DAILY 07/28/21 04/22/22 Elemental)] Furosemide [Lasix] 40 mg PO DAILY 07/28/21 04/22/22 Ipratropium-Albuterol Nebulize 3 ml INHALATION RT-QID PRN 07/28/21 04/22/22 [Duoneb 0.5 mg-3 mg/3 ml Soln] Lactulose [Cephulac] 20 gm PO DAILY 07/28/21 04/22/22 Famotidine [Pepcid] 20 mg PO DAILY 03/18/22 04/22/22 Sucralfate [Carafate] 1 gm PO ACHS 03/18/22 04/22/22 Dulaglutide [Trulicity] 1.5 mg SQ TH 04/01/22 04/22/22 Insulin Aspart (Niacinamide) 25 units SQ BID 04/01/22 04/22/22 [Fiasp 100 Unit/ml Flextouch Pen] Insulin Glargine,Hum.rec.anlog 75 units SQ HS 04/01/22 04/22/22 [Basaglar Kwikpen U-100] Topiramate [Topamax] 25 mg PO HS 04/01/22 04/22/22 carvediloL [Coreg] 25 mg PO BID 04/01/22 04/22/22 metFORMIN HCL [Glucophage] 1,000 mg PO BID 04/01/22 04/22/22 Acetaminophen [Tylenol] 650 mg PO QID PRN 04/22/22 04/22/22 Albuterol Sulfate [Albuterol 1 - 2 puff PO RT-Q4H PRN 04/22/22 04/22/22 Sulfate Hfa] Previous Rx's Medication Instructions Recorded Losartan [Cozaar] 12.5 mg PO DAILY #0 03/20/22 Isosorbide Mononitrate ER [Imdur] 60 mg PO DAILY #4 tab 04/03/22 Nitroglycerin Sl Tabs [Nitrostat] 0.4 mg SUBLINGUAL Q5M PRN #30 tab 04/03/22 Allergies Allergy/AdvReac Type Severity Reaction Status Date / Time sacubitril [From Entresto] AdvReac made him Verified 03/18/22 15:31 hypotensive valsartan [From Entresto] AdvReac made him Verified 03/18/22 15:31 hypotensive Review of Systems ROS Statement: Those systems with pertinent positive or pertinent negative responses have been documented in the HPI. ROS Other: All systems not noted in ROS Statement are negative. Past Medical History Past Medical History: Cancer, Heart Failure, Diabetes Mellitus Additional Past Medical History / Comment(s): CVA, HTN, HLD Last Myocardial Infarction Date:: 2020 History of Any Multi-Drug Resistant Organisms: None Reported Past Surgical History: Appendectomy, Tonsillectomy Additional Past Surgical History / Comment(s): cataracts, vasectomy, Past Anesthesia/Blood Transfusion Reactions: No Reported Reaction Past Psychological History: Depression Smoking Status: Former smoker Past Alcohol Use History: None Reported Past Drug Use History: None Reported - Past Family History Father Additional Family Medical History / Comment(s): Father had multiple MIs and from one at the age of 51 yrs. Mother Additional Family Medical History / Comment(s): Mother had a bad heart. General Exam Limitations: no limitations Course Vital Signs 04/22/22 04/22/22 04/22/22 11:39 12:00 12:30 Temperature 97.5 F L Pulse Rate 81 82 88 Respiratory 18 20 18 Rate Blood Pressure 100/63 93/55 94/58 O2 Sat by Pulse 99 98 99 Oximetry 04/22/22 04/22/22 13:00 15:14 Temperature Pulse Rate 78 78 Respiratory 19 18 Rate Blood Pressure 91/67 107/65 O2 Sat by Pulse 99 95 Oximetry EKG Findings - EKG Comments: EKG Findings:: EKG demonstrates a sinus rhythm with a rate of 78. MS interval 176. QRS 171. QTC of 464. There is a right bundle branch block. ST depression V4 through V6. No acute ST segment elevation Medical Decision Making - Medical Decision Making Was pt. sent in by a medical professional or institution? @ -[by , PA, HR MANAGER, urgent care, hospital, or assisted] Did you speak to anyone other than the patient for history? @ -[EMS, parent, family, police, friend?] Did you review nursing and triage notes? @ -[agree or disagree, why?] Were old charts reviewed? @ -[outside hosp., previous admissions, EMS record, old EKG, old radiological studies, urgent care reports/EKGs, assisted records?] Differential Diagnosis? Differential Syncope: Valvular disease, hypertrophic cardiomyopathy, pulmonary embolism, tamponade, tachycardia, bradycardia, MS, hypovolemia, hemorrhage, dissection, anemia, intracranial hemorrhage, seizure, hypoglycemia, carbon monoxide poisoning, this is not meant to be an all-inclusive list. EKG interpreted by me (3pts min.)? @ -[none] X-rays interpreted by me (1pt min.)? @ -[none] CT interpreted by me (1pt min.)? @ -[none] U/S interpreted by me (1pt. min.)? @ -[none] What testing was considered but not performed? (CT, X-rays, U/S, labs)? Why? @ [CT, X-rays, U/S, labs? Why?] What meds were considered but not given? Why? @ -[none] Did you discuss the management of the patient with other professionals? @ -[professionals i.e. Dr, PA, HR MANAGER, Lab, RT, Psych Nurse, Insole Doubler, Deli Department Manager, Teacher, Ibm Bpm Developer, human services case manager? Give summary] Did you reconcile home meds? @ -[none] Was smoking cessation discussed for >3mins.? @ -[none] Was critical care preformed (if so, how long)? @ -[none] Were there social determinants of health that impacted care today? How? (Homelessness, low income, unemployed, alcoholism, drug addiction, transportation, low edu. Level, literacy, decrease access to med. care, long term, rehab)? @ -[Homelessness, low income, unemployed, alcoholism, drug addiction, transportation, low edu. Level, literacy, decrease access to med. care, long term, rehab?] Was there de-escalation of care discussed even if they declined? (Discuss DNR or withdrawal of care, Hospice)? @ -[Discuss DNR or withdrawal of care, Hospice?] What co-morbidities impacted this encounter? (DM, HTN, Smoking, COPD, CAD, Cancer, CVA, Hep., AIDS, mental health diagnosis, sleep apnea, morbid obesity)? @ -[DM, HTN, Smoking, COPD, CAD, Cancer, CVA, Hep., AIDS, mental health diagnosis, sleep apnea, morbid obesity?] Was patient admitted / discharged? Upon arrival patient was placed into room 19. A thorough history and physical exam was performed. Patient was markedly hypotensive upon arrival. He is given a liter bolus of normal saline. Laboratory studies are conducted and reviewed. BUN 46. Creatinine 1.47. First troponin is negative. He does have improvement in his blood pressure with the normal saline. Did recommend admission because of this chest pain, pre-syncope and hypotension. Patient may require medication changes. Patient was agreeable to this. Spoke with Dr. Ortega who was agreeable to admit the patient. Undiagnosed new problem with uncertain prognosis? @ -[none] Drug Therapy requiring intensive monitoring for toxicity (Heparin, Nitro, Insulin, Cardizem)? @ -[none] Were any procedures done? @ -[none] Diagnosis/symptom? @ -[default] Acute, or Chronic, or Acute on Chronic? @ -[default] Uncomplicated (without systemic symptoms) or Complicated (systemic symptoms)? @ -[default] Side effects of treatment? @ -[none] Exacerbation, Progression, or Severe Exacerbation] @ -[no] Poses a threat to life or bodily function? @ -[no] - Lab Data Result diagrams: 04/22/22 12:51 04/22/22 12:51 Lab Results 04/22/22 04/22/22 04/22/22 Range/Units 12:51 12:51 12:51 WBC 8.9 (3.8-10.6) k/uL RBC 3.67 L (4.30-5.90) m/uL Hgb 12.0 L (13.0-17.5) gm/dL Hct 34.7 L (39.0-53.0) % MCV 94.4 (80.0-100.0) fL MCH 32.6 (25.0-35.0) pg MCHC 34.5 (31.0-37.0) g/dL RDW 14.1 (11.5-15.5) % Plt Count 137 L (150-450) k/uL MPV 8.7 Neutrophils % 81 % Lymphocytes % 12 % Monocytes % 3 % Eosinophils % 2 % Basophils % 0 % Neutrophils # 7.2 (1.3-7.7) k/uL Lymphocytes # 1.1 (1.0-4.8) k/uL Monocytes # 0.3 (0-1.0) k/uL Eosinophils # 0.2 (0-0.7) k/uL Basophils # 0.0 (0-0.2) k/uL PT 10.4 (9.0-12.0) sec INR 1.0 (<1.2) APTT 23.8 (22.0-30.0) sec Sodium 139 (137-145) mmol/L Potassium 4.8 (3.5-5.1) mmol/L Chloride 108 H (98-107) mmol/L Carbon Dioxide 23 (22-30) mmol/L Anion Gap 8 mmol/L BUN 46 H (9-20) mg/dL Creatinine 1.47 H (0.66-1.25) mg/dL Est GFR (CKD-EPI)AfAm 58 (>60 ml/min/1.73 sqM) Est GFR (CKD-EPI)NonAf 50 (>60 ml/min/1.73 sqM) Glucose 128 H (74-99) mg/dL Calcium 8.5 (8.4-10.2) mg/dL Magnesium 1.5 L (1.6-2.3) mg/dL Total Bilirubin 0.8 (0.2-1.3) mg/dL AST 29 (17-59) U/L ALT 33 (4-49) U/L Alkaline Phosphatase 69 (38-126) U/L Troponin I (0.000-0.034) ng/mL Total Protein 6.3 (6.3-8.2) g/dL Albumin 3.8 (3.5-5.0) g/dL 04/22/22 Range/Units 12:51 WBC (3.8-10.6) k/uL RBC (4.30-5.90) m/uL Hgb (13.0-17.5) gm/dL Hct (39.0-53.0) % MCV (80.0-100.0) fL MCH (25.0-35.0) pg MCHC (31.0-37.0) g/dL RDW (11.5-15.5) % Plt Count (150-450) k/uL MPV Neutrophils % % Lymphocytes % % Monocytes % % Eosinophils % % Basophils % % Neutrophils # (1.3-7.7) k/uL Lymphocytes # (1.0-4.8) k/uL Monocytes # (0-1.0) k/uL Eosinophils # (0-0.7) k/uL Basophils # (0-0.2) k/uL PT (9.0-12.0) sec INR (<1.2) APTT (22.0-30.0) sec Sodium (137-145) mmol/L Potassium (3.5-5.1) mmol/L Chloride (98-107) mmol/L Carbon Dioxide (22-30) mmol/L Anion Gap mmol/L BUN (9-20) mg/dL Creatinine (0.66-1.25) mg/dL Est GFR (CKD-EPI)AfAm (>60 ml/min/1.73 sqM) Est GFR (CKD-EPI)NonAf (>60 ml/min/1.73 sqM) Glucose (74-99) mg/dL Calcium (8.4-10.2) mg/dL Magnesium (1.6-2.3) mg/dL Total Bilirubin (0.2-1.3) mg/dL AST (17-59) U/L ALT (4-49) U/L Alkaline Phosphatase (38-126) U/L Troponin I 0.019 (0.000-0.034) ng/mL Total Protein (6.3-8.2) g/dL Albumin (3.5-5.0) g/dL Disposition Clinical Impression: Chest pain, Hypotension, Hypomagnesemia Disposition: ADMITTED IP TO THIS HOSP Condition: Stable Is patient prescribed a controlled substance at d/c from ED?: No Time of Disposition: 14:23
[2022-04-22] MEDS: SODIUM CHLORIDE 0.9% 1,000 ML IV SCH (15:20)
[2022-04-22] MEDS ORDERED: ALBUTEROL HFA INHALER INHALATION PRN (15:36)
[2022-04-22] MEDS ORDERED: NITROGLYCERIN SL TABS 0.4 MG TAB SUBLINGUAL PRN (15:36)
[2022-04-22] MEDS ORDERED: ACETAMINOPHEN TAB 325 MG TAB PO PRN (15:36)
[2022-04-22] MEDS ORDERED: ONDANSETRON 4 MG/2 ML VIAL IVP PRN (15:58)
--- NOTE | 2022-04-22 15:59 | P.HPIM ---
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 Patient was on his way to see his [facility]ACE provider, and in transport became carsick, nauseous, had an episode of vomiting. He was found to be hypotensive during his visit. They tried to get an IV started according to the patient so that he could be given IV fluids due to concern for dehydration, however, they're unable to do so, therefore sent the patient into the hospital for further evaluation. Patient has no complaints at this time, reports that his nausea, vomiting has resolved. He thinks that he was nauseous and vomiting because he had too much blood pressure medication and that his blood pressure was too low. He denies fevers, chills, chest pain, palpitations, syncope, presyncope, cough, dyspnea, abdominal pain, constipation, diarrhea, dysuria, dyschezia, numbness/weakness of extremities. In the emergency room, patient is afebrile, initially in the 70s over 40s, then improved to 100/63, heart rate 81, 99% on 2 L of nasal cannula. CBC shows an anemia of 12, platelets of 137, these are both mildly lower than previous measurements in 04/16/2022. Chemistries show a BUN of 46, creatinine of 1.47, baseline creatinine is 1.0. Magnesium was 1.5. Liver function tests are otherwise unremarkable. Troponin was 0.019. Coags unremarkable. Chest x-ray shows no acute process, does show mild cardiomegaly. EKG shows sinus rhythm with left posterior fascicular block. Patient was given thousand cc liter bolus, 2 g of magnesium, admitted to medicine for further management. All Systems reviewed and pertinent positives and negatives noted in HPI, all other symptoms are negative Gen: in no apparent distress, resting comfortably in bed Eyes: PERRL, no scleral injection or icterus HENT: normocephalic, atraumatic, good hearing acuity, moist mucous membranes Neck: no tracheal deviation, full range of motion Resp: good air exchange, breathing comfortably with no accessory muscle use, no tactile fremitus, regular rate and rhythm, no murmurs CVS: good distal perfusion x 4, 2+ up to the knees pitting edema GI: soft, NTTP, ND, no hepatosplenomegaly : no suprapubic tenderness, no CVAT, nunez catheter not present MSK: no clubbing, no cyanosis, no noted contractures of extremities Skin: no noted rashes, petechiae; temperature of skin is appropriate Neuro: moving all extremities without signs of weakness, CN II-XII intact Psych: cooperative, euthymic mood, insight and judgment impaired Labs and imaging as above Assessment/plan: Acute kidney injury Nausea and vomiting -Admit to observation, telemetry -Received 1000 mL IV fluid bolus, continue IV fluids at 75 mL per hour -Repeat BMP, magnesium tomorrow morning -Zofran when necessary -f/u with PCP Chronic diastolic heart failure CAD Hypertension Hyperlipidemia Diabetes type 2 Chronic respiratory failure -Home medications reviewed and reconciled, changes noted above Patient is full code DVT prophylaxis with heparin 3 times a day Past Medical History Past Medical History: Cancer, Heart Failure, Diabetes Mellitus Additional Past Medical History / Comment(s): CVA, HTN, HLD Last Myocardial Infarction Date:: 2020 History of Any Multi-Drug Resistant Organisms: None Reported Past Surgical History: Appendectomy, Tonsillectomy Additional Past Surgical History / Comment(s): cataracts, vasectomy, Past Anesthesia/Blood Transfusion Reactions: No Reported Reaction Past Psychological History: Depression Smoking Status: Former smoker Past Alcohol Use History: None Reported Past Drug Use History: None Reported - Past Family History Father Additional Family Medical History / Comment(s): Father had multiple MIs and from one at the age of 51 yrs. Mother Additional Family Medical History / Comment(s): Mother had a bad heart. Medications and Allergies Home Medications Medication Instructions Recorded Confirmed Type Aspirin EC [Ecotrin Low Dose] 81 mg PO DAILY 01/12/19 04/22/22 History Atorvastatin [Lipitor] 80 mg PO HS 01/12/19 04/22/22 History Clopidogrel Bisulfate [Plavix] 75 mg PO DAILY 07/28/21 04/22/22 History Ferrous Sulfate [Iron (65 MG 325 mg PO DAILY 07/28/21 04/22/22 History Elemental)] Furosemide [Lasix] 40 mg PO DAILY 07/28/21 04/22/22 History Ipratropium-Albuterol Nebulize 3 ml INHALATION RT-QID PRN 07/28/21 04/22/22 History [Duoneb 0.5 mg-3 mg/3 ml Soln] Lactulose [Cephulac] 20 gm PO DAILY 07/28/21 04/22/22 History Famotidine [Pepcid] 20 mg PO DAILY 03/18/22 04/22/22 History Sucralfate [Carafate] 1 gm PO ACHS 03/18/22 04/22/22 History Losartan [Cozaar] 12.5 mg PO DAILY #0 03/20/22 04/22/22 Rx Dulaglutide [Trulicity] 1.5 mg SQ TH 04/01/22 04/22/22 History Insulin Aspart (Niacinamide) 25 units SQ BID 04/01/22 04/22/22 History [Fiasp 100 Unit/ml Flextouch Pen] Insulin Glargine,Hum.rec.anlog 75 units SQ HS 04/01/22 04/22/22 History [Basaglar Kwikpen U-100] Topiramate [Topamax] 25 mg PO HS 04/01/22 04/22/22 History carvediloL [Coreg] 25 mg PO BID 04/01/22 04/22/22 History metFORMIN HCL [Glucophage] 1,000 mg PO BID 04/01/22 04/22/22 History Isosorbide Mononitrate ER [Imdur] 60 mg PO DAILY #4 tab 04/03/22 04/22/22 Rx Nitroglycerin Sl Tabs [Nitrostat] 0.4 mg SUBLINGUAL Q5M PRN #30 tab 04/03/22 04/22/22 Rx Acetaminophen [Tylenol] 650 mg PO QID PRN 04/22/22 04/22/22 History Albuterol Sulfate [Albuterol 1 - 2 puff PO RT-Q4H PRN 04/22/22 04/22/22 History Sulfate Hfa] Allergies Allergy/AdvReac Type Severity Reaction Status Date / Time sacubitril [From Entresto] AdvReac made him Verified 03/18/22 15:31 hypotensive valsartan [From Entresto] AdvReac made him Verified 03/18/22 15:31 hypotensive Physical Exam Osteopathic Statement: *. No significant issues noted on an osteopathic structural exam other than those noted in the History and Physical/Consult. Vitals: Vital Signs Temp Pulse Resp BP BP Pulse Ox 04/22/22 15:41 97.7 F 18 126/68 99 04/22/22 15:14 78 18 107/65 95 04/22/22 13:00 78 19 91/67 99 04/22/22 12:30 88 18 94/58 99 04/22/22 12:00 82 20 93/55 98 04/22/22 11:39 97.5 F L 81 18 100/63 99 Intake and Output 04/22/22 04/22/22 04/22/22 06:59 14:59 22:59 Other: Weight 120.202 kg Results CBC & Chem 7: 04/22/22 12:51 04/22/22 12:51 Labs: Abnormal Lab Results - Last 24 Hours (Table) 04/22/22 04/22/22 Range/Units 12:51 12:51 RBC 3.67 L (4.30-5.90) m/uL Hgb 12.0 L (13.0-17.5) gm/dL Hct 34.7 L (39.0-53.0) % Plt Count 137 L (150-450) k/uL Chloride 108 H (98-107) mmol/L BUN 46 H (9-20) mg/dL Creatinine 1.47 H (0.66-1.25) mg/dL Glucose 128 H (74-99) mg/dL Magnesium 1.5 L (1.6-2.3) mg/dL
[2022-04-22 17:18] LABS: Glucose,Whole Blood 132 mg/dL (70-110)
[2022-04-22] MEDS: SUCRALFATE 1 GM TAB PO SCH ×2 (17:54→21:45)
[2022-04-22] MEDS: INSULIN ASPART (NovoLOG) 100 UNIT/ML VIAL SQ SCH (17:55)
[2022-04-22] MEDS: IPRATROPIUM-ALBUTEROL 3 ML NEB INHALATION PRN (20:31)
[2022-04-22] MEDS ORDERED: TOPIRAMATE 25 MG TAB PO SCH (21:00)
[2022-04-22] MEDS ORDERED: ATORVASTATIN 80 MG TAB PO SCH (21:00)
[2022-04-22] MEDS ORDERED: INSULIN DETEMIR (LEVEMIR) 100 UNIT/ML SYR SQ SCH (21:00)
[2022-04-22] MEDS: carvediloL 12.5 MG TAB PO SCH (21:45)
[2022-04-22 22:46] LABS: Glucose,Whole Blood 96 mg/dL (70-110)
[2022-04-23] MEDS: SODIUM CHLORIDE 0.9% 1,000 ML IV SCH (04:13)
[2022-04-23] MEDS: SUCRALFATE 1 GM TAB PO SCH ×2 (06:33→12:42)
[2022-04-23 06:34] LABS: Glucose,Whole Blood 89 mg/dL (70-110)
[2022-04-23] MEDS: IPRATROPIUM-ALBUTEROL 3 ML NEB INHALATION PRN ×2 (07:32→11:04)
[2022-04-23] MEDS: INSULIN ASPART (NovoLOG) 100 UNIT/ML VIAL SQ SCH (07:45)
[2022-04-23 08:07] VITALS: TEMP 98
[2022-04-23] MEDS: carvediloL 12.5 MG TAB PO SCH (08:25)
[2022-04-23 08:56] LABS: Basophils # (A) 0.04 X 10*3/uL (0.00-0.10); Basophils % (A) 0.5 %; Eosinophils # (A) 0.33 X 10*3/uL (0.04-0.35); Eosinophils % (A) 3.8 %; HCT 34.8 % (39.6-50.0); HGB 11.2 g/dL (13.0-17.0); Immature Grans, Automated 0.2 %; Lymphocytes # (A) 2.08 X 10*3/uL (0.90-5.00); Lymphocytes % (A) 24.1 %; MCH 31.5 pg (27.0-32.0); MCHC 32.2 g/dL (32.0-37.0); MCV 97.8 fL (80.0-97.0); Mean Platelet Volume 11.5 fL (9.5-12.2); Monocytes # (A) 0.66 X 10*3/uL (0.20-1.00); Monocytes % (A) 7.7 %; NRBC Per 100 WBC 0 /100 WBCS (0.0-0.0); Neutrophils # (A) 5.49 X 10*3/uL (1.80-7.70); Neutrophils % (A) 63.7 %; Platelet Count 150 X 10*3/uL (140-440); RBC 3.56 X 10*6/uL (4.40-5.60); RDW 13.7 % (11.5-14.5); WBC 8.62 X 10*3/uL (4.50-10.00)
[2022-04-23] MEDS ORDERED: ASPIRIN 81 MG PO SCH (09:00)
[2022-04-23] MEDS ORDERED: carvediloL 12.5 MG TAB PO SCH (09:00)
[2022-04-23] MEDS ORDERED: LACTULOSE 20 GM/30 ML CUP PO SCH (09:00)
[2022-04-23] MEDS ORDERED: ISOSORBIDE MONONITRATE ER 30 MG TAB.ER.24H PO SCH (09:00)
[2022-04-23] MEDS ORDERED: LOSARTAN 25 MG TAB PO SCH (09:00)
[2022-04-23] MEDS ORDERED: FUROSEMIDE 20 MG TAB PO SCH (09:00)
[2022-04-23] MEDS ORDERED: FERROUS SULFATE 325 MG TAB PO SCH (09:00)
[2022-04-23] MEDS ORDERED: CLOPIDOGREL 75 MG TAB PO SCH (09:00)
[2022-04-23] MEDS ORDERED: FAMOTIDINE 20 MG TAB PO SCH (09:00)
[2022-04-23 09:07] LABS: African American GFR (CKD) 81.8 (60.0-200.0); Anion Gap 10.5 mmol/L (10.00-18.00); BUN/Creat Ratio 34.55 Ratio (12.00-20.00); Calcium 8.7 mg/dL (8.7-10.3); Carbon Dioxide 23.5 mmol/L (20.0-27.5); Magnesium 1.7 mg/dL (1.5-2.4); Non-African American GFR(CKD) 70.6 (60.0-200.0); Potassium 4.1 mmol/L (3.5-5.5)
[2022-04-23] MEDS ORDERED: ALBUTEROL NEBULIZED 2.5 MG/3 ML INHALATION PRN (09:47)
[2022-04-23 11:39] LABS: Glucose,Whole Blood 144 mg/dL (70-110)
[2022-04-23 14:00] VITALS: BP 129/70; PULSE 85; RESP 18
--- NOTE | 2022-04-23 14:23 | P.DS ---
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 In the emergency room, patient is afebrile, initially in the 70s over 40s, then improved to 100/63, heart rate 81, 99% on 2 L of nasal cannula. CBC shows an anemia of 12, platelets of 137, these are both mildly lower than previous measurements in 04/16/2022. Chemistries show a BUN of 46, creatinine of 1.47, baseline creatinine is 1.0. Magnesium was 1.5. Liver function tests are otherwise unremarkable. Troponin was 0.019. Coags unremarkable. Chest x-ray shows no acute process, does show mild cardiomegaly. EKG shows sinus rhythm with left posterior fascicular block. Patient was given thousand cc liter bolus, 2 g of magnesium, admitted to medicine for further management. Patients ROSE resolved by following day, and he had no further complaints of N/V. His BP medications of coreg, imdur were reduced by half. His lasix was reduced by half. This was discussed with Dr. Nicholson, his outpatient physician on discharge. All Systems reviewed and pertinent positives and negatives noted in HPI, all other symptoms are negative Gen: in no apparent distress, resting comfortably in bed Eyes: PERRL, no scleral injection or icterus HENT: normocephalic, atraumatic, good hearing acuity, moist mucous membranes Neck: no tracheal deviation, full range of motion Resp: good air exchange, breathing comfortably with no accessory muscle use, no tactile fremitus, regular rate and rhythm, no murmurs CVS: good distal perfusion x 4, 2+ up to the knees pitting edema GI: soft, NTTP, ND, no hepatosplenomegaly : no suprapubic tenderness, no CVAT, nunez catheter not present MSK: no clubbing, no cyanosis, no noted contractures of extremities Skin: no noted rashes, petechiae; temperature of skin is appropriate Neuro: moving all extremities without signs of weakness, CN II-XII intact Psych: cooperative, euthymic mood, insight and judgment impaired Patient Condition at Discharge: Good Plan - Discharge Summary Discharge Rx Participant: No New Discharge Prescriptions: Continue Atorvastatin [Lipitor] 80 mg PO HS Aspirin EC [Ecotrin Low Dose] 81 mg PO DAILY Lactulose [Cephulac] 20 gm PO DAILY Ipratropium-Albuterol Nebulize [Duoneb 0.5 mg-3 mg/3 ml Soln] 3 ml INHALATION RT-QID PRN PRN Reason: Shortness Of Breath Clopidogrel Bisulfate [Plavix] 75 mg PO DAILY Famotidine [Pepcid] 20 mg PO DAILY Sucralfate [Carafate] 1 gm PO ACHS metFORMIN HCL [Glucophage] 1,000 mg PO BID Insulin Aspart (Niacinamide) [Fiasp 100 Unit/ml Flextouch Pen] 25 units SQ BID Dulaglutide [Trulicity] 1.5 mg SQ TH Nitroglycerin Sl Tabs [Nitrostat] 0.4 mg SUBLINGUAL Q5M PRN #30 tab PRN Reason: Chest Pain Acetaminophen [Tylenol] 650 mg PO QID PRN PRN Reason: Fever And/ Or Pain Albuterol Sulfate [Albuterol Sulfate Hfa] 1 - 2 puff PO RT-Q4H PRN PRN Reason: Shortness Of Breath Ferrous Sulfate [Iron (65 MG Elemental)] 325 mg PO DAILY Losartan [Cozaar] 12.5 mg PO DAILY #0 Topiramate [Topamax] 25 mg PO HS Insulin Glargine,Hum.rec.anlog [Basaglar Kwikpen U-100] 75 units SQ HS Changed Furosemide [Lasix] 20 mg PO DAILY #0 carvediloL [Coreg] 12.5 mg PO BID #0 Isosorbide Mononitrate ER [Imdur] 30 mg PO DAILY #4 tab Discharge Medication List Aspirin EC [Ecotrin Low Dose] 81 mg PO DAILY 01/12/19 [History] Atorvastatin [Lipitor] 80 mg PO HS 01/12/19 [History] Clopidogrel Bisulfate [Plavix] 75 mg PO DAILY 07/28/21 [History] Ferrous Sulfate [Iron (65 MG Elemental)] 325 mg PO DAILY 07/28/21 [History] Ipratropium-Albuterol Nebulize [Duoneb 0.5 mg-3 mg/3 ml Soln] 3 ml INHALATION RT-QID PRN 07/28/21 [History] Lactulose [Cephulac] 20 gm PO DAILY 07/28/21 [History] Famotidine [Pepcid] 20 mg PO DAILY 03/18/22 [History] Sucralfate [Carafate] 1 gm PO ACHS 03/18/22 [History] Losartan [Cozaar] 12.5 mg PO DAILY #0 03/20/22 [Rx] Dulaglutide [Trulicity] 1.5 mg SQ TH 04/01/22 [History] Insulin Aspart (Niacinamide) [Fiasp 100 Unit/ml Flextouch Pen] 25 units SQ BID 04/01/22 [History] Insulin Glargine,Hum.rec.anlog [Basaglar Kwikpen U-100] 75 units SQ HS 04/01/22 [History] Topiramate [Topamax] 25 mg PO HS 04/01/22 [History] metFORMIN HCL [Glucophage] 1,000 mg PO BID 04/01/22 [History] Nitroglycerin Sl Tabs [Nitrostat] 0.4 mg SUBLINGUAL Q5M PRN #30 tab 04/03/22 [Rx] Acetaminophen [Tylenol] 650 mg PO QID PRN 04/22/22 [History] Albuterol Sulfate [Albuterol Sulfate Hfa] 1 - 2 puff PO RT-Q4H PRN 04/22/22 [History] Furosemide [Lasix] 20 mg PO DAILY #0 04/23/22 [Rx] Isosorbide Mononitrate ER [Imdur] 30 mg PO DAILY #4 tab 04/23/22 [Rx] carvediloL [Coreg] 12.5 mg PO BID #0 04/23/22 [Rx] Follow up Appointment(s)/Referral(s): Provider,PACE [Primary Care Provider] - 1-2 days Patient Instructions/Handouts: Chest Pain (DC), Chronic Hypertension (DC) Discharge Disposition: HOME WITH HOME HEALTH SERVICES
[2022-04-23] MEDS ORDERED: INSULIN DETEMIR (LEVEMIR) 100 UNIT/ML SYR SQ SCH (21:00)
== END 2022-04-23 15:05 | disposition home health service (06) ==
LOC: EC 11:33 → 6NMEDSUR 14:23
PROVIDERS: ADMIT Family Medicine; ATTEND Family Medicine
DX: N17.9 Acute kidney failure, unspecified (principal); I95.9 Hypotension, unspecified; I11.0 Hypertensive heart disease with heart failure; I50.32 Chronic diastolic (congestive) heart failure; J96.10 Chronic respiratory failure, unspecified whether with hypoxia or hypercapnia; E11.9 Type 2 diabetes mellitus without complications; I25.82 Chronic total occlusion of coronary artery; E83.42 Hypomagnesemia; I25.10 Atherosclerotic heart disease of native coronary artery without angina pectoris; I44.5 Left posterior fascicular block; E78.5 Hyperlipidemia, unspecified; I45.10 Unspecified right bundle-branch block; F32.A Depression, unspecified; D64.9 Anemia, unspecified; Z79.82 Long term (current) use of aspirin; Z79.02 Long term (current) use of antithrombotics/antiplatelets; Z79.4 Long term (current) use of insulin; Z79.85 Long-term (current) use of injectable non-insulin antidiabetic drugs; Z79.84 Long term (current) use of oral hypoglycemic drugs; Z79.899 Other long term (current) drug therapy; Z88.8 Allergy status to other drugs, medicaments and biological substances; Z98.61 Coronary angioplasty status; Z85.9 Personal history of malignant neoplasm, unspecified; Z87.828 Personal history of other (healed) physical injury and trauma; Z86.73 Personal history of transient ischemic attack (TIA), and cerebral infarction without residual deficits; Z98.52 Vasectomy status; Z90.49 Acquired absence of other specified parts of digestive tract; Z98.49 Cataract extraction status, unspecified eye; Z87.891 Personal history of nicotine dependence; Z98.890 Other specified postprocedural states; Z82.49 Family history of ischemic heart disease and other diseases of the circulatory system
CPT/HCPCS: 96361; 96365; 99285; 36415; 94640 ×3; 94760 ×2; 93005; 80053; 80048; 83735 ×2; 84484; 85025 ×2; 85610; 85730; 71046; G0378 ×2; J3475

== ENCOUNTER 2022-07-06 11:56 | Observation (INO) | payer OTHER ==
[2022-07-06] MEDS ORDERED: SODIUM CHLORIDE 0.9% 1,000 ML IV STA (12:14)
[2022-07-06] MEDS ORDERED: ASPIRIN 81 MG PO STA (12:14)
--- NOTE | 2022-07-06 12:17 | ED ---
General Adult HPI - General Chief complaint: Chest Pain Stated complaint: Chest pain Time Seen by Provider: 07/06/22 11:59 Source: patient, EMS, RN notes reviewed Mode of arrival: EMS Limitations: no limitations - History of Present Illness Initial comments: Patient is a pleasant 67-year-old male presenting to the emergency department with concerns of chest discomfort. Onset of symptoms was earlier this morning. Symptoms did last for a couple hours. Patient is symptom-free at this time. Patient did vomit one time. Patient was at pace and had reported low blood pressure earlier. Patient denies dyspnea. No diaphoresis. No leg pain or leg swelling. Patient denies history of similar symptoms previously. - Related Data Home Medications Medication Instructions Recorded Confirmed Aspirin EC [Ecotrin Low Dose] 81 mg PO DAILY 01/12/19 07/06/22 Atorvastatin [Lipitor] 80 mg PO HS 01/12/19 07/06/22 Clopidogrel Bisulfate [Plavix] 75 mg PO DAILY 07/28/21 07/06/22 Ferrous Sulfate [Iron (65 MG 325 mg PO DAILY 07/28/21 07/06/22 Elemental)] Ipratropium-Albuterol Nebulize 3 ml INHALATION RT-QID PRN 07/28/21 07/06/22 [Duoneb 0.5 mg-3 mg/3 ml Soln] Famotidine [Pepcid] 20 mg PO BID 03/18/22 07/06/22 Dulaglutide [Trulicity] 1.5 mg SQ TH 04/01/22 07/06/22 Insulin Aspart (Niacinamide) 25 units SQ BID 04/01/22 07/06/22 [Fiasp 100 Unit/ml Flextouch Pen] Insulin Glargine,Hum.rec.anlog 75 units SQ HS 04/01/22 07/06/22 [Basaglar Kwikpen U-100] Topiramate [Topamax] 25 mg PO HS 04/01/22 07/06/22 metFORMIN HCL [Glucophage] 1,000 mg PO BID 04/01/22 07/06/22 Acetaminophen [Tylenol] 650 mg PO QID PRN 04/22/22 07/06/22 Albuterol Sulfate [Albuterol 1 - 2 puff PO RT-Q4H PRN 04/22/22 07/06/22 Sulfate Hfa] Dicyclomine 10mg/5ml Oral Solution 10 mg PO BID 07/06/22 07/06/22 Isosorbide Mononitrate ER [Imdur] 30 mg PO DAILY 07/06/22 07/06/22 carvediloL [Coreg] 25 mg PO DAILY 07/06/22 07/06/22 Previous Rx's Medication Instructions Recorded Losartan [Cozaar] 12.5 mg PO DAILY #0 03/20/22 Nitroglycerin Sl Tabs [Nitrostat] 0.4 mg SUBLINGUAL Q5M PRN #30 tab 04/03/22 Allergies Allergy/AdvReac Type Severity Reaction Status Date / Time furosemide [From Lasix] AdvReac Unknown Verified 07/06/22 13:04 sacubitril [From Entresto] AdvReac made him Verified 07/06/22 13:04 hypotensive valsartan [From Entresto] AdvReac made him Verified 07/06/22 13:04 hypotensive Review of Systems ROS Statement: Those systems with pertinent positive or pertinent negative responses have been documented in the HPI. ROS Other: All systems not noted in ROS Statement are negative. Constitutional: Denies: fever Eyes: Denies: eye pain ENT: Denies: ear pain Respiratory: Denies: cough, dyspnea Cardiovascular: Reports: as per HPI, chest pain Endocrine: Denies: fatigue Gastrointestinal: Reports: as per HPI, vomiting. Denies: abdominal pain Genitourinary: Denies: dysuria Musculoskeletal: Denies: back pain Skin: Denies: rash Neurological: Denies: weakness Past Medical History Past Medical History: Cancer, Heart Failure, Diabetes Mellitus, Hypertension Additional Past Medical History / Comment(s): CVA, HTN, HLD Last Myocardial Infarction Date:: 2020 History of Any Multi-Drug Resistant Organisms: None Reported Past Surgical History: Appendectomy, Tonsillectomy Additional Past Surgical History / Comment(s): cataracts, vasectomy, Past Anesthesia/Blood Transfusion Reactions: No Reported Reaction Past Psychological History: Depression Smoking Status: Former smoker Past Alcohol Use History: None Reported Past Drug Use History: None Reported - Past Family History Father Additional Family Medical History / Comment(s): Father had multiple MIs and from one at the age of 51 yrs. Mother Additional Family Medical History / Comment(s): Mother had a bad heart. General Exam Limitations: no limitations General appearance: alert, in no apparent distress Head exam: Present: normocephalic Eye exam: Present: normal appearance Neck exam: Present: normal inspection Respiratory exam: Present: normal lung sounds bilaterally Cardiovascular Exam: Present: regular rate, normal rhythm Expanded Peripheral pulses: 2+: Radial (R), Radial (L), Posterior Tibialis (R), Posterior Tibialis (L) GI/Abdominal exam: Present: soft. Absent: tenderness Extremities exam: Present: normal inspection. Absent: pedal edema, calf ten derness Neurological exam: Present: alert Psychiatric exam: Present: normal affect, normal mood Skin exam: Present: normal color Course Vital Signs 07/06/22 07/06/22 07/06/22 11:59 12:26 12:29 Temperature 98.4 F Pulse Rate 81 80 Respiratory 18 18 18 Rate Blood Pressure 110/63 110/73 O2 Sat by Pulse 100 Oximetry 07/06/22 15:02 Temperature Pulse Rate 80 Respiratory 18 Rate Blood Pressure 136/76 O2 Sat by Pulse 97 Oximetry EKG Findings - EKG Results: EKG: interpreted by ERMD (Right bundle-branch block. Patient does have some biphasic T waves.), sinus rhythm, normal axis Medical Decision Making - Medical Decision Making Was pt. sent in by a medical professional or institution (, PA, KINESIOLOGIST, urgent care, hospital, or fci...) When possible be specific @ -Patient was sent from nursing facility Did you speak to anyone other than the patient for history (EMS, parent, family, police, friend...)? What history was obtained from this source @ -No Did you review nursing and triage notes (agree or disagree)? Why? @ -I reviewed and agree with nursing and triage notes Were old charts reviewed (outside hosp., previous admission, EMS record, old EKG, old radiological studies, urgent care reports/EKG's, fci records)? Report findings @ -No old charts were reviewed Differential Diagnosis (chest pain, altered mental status, abdominal pain women, abdominal pain men, vaginal bleeding, weakness, fever, dyspnea, syncope, headache, dizziness, GI bleed, back pain, seizure, CVA, palpatations, mental health)? @ -Differential Chest Pain: Stable Angina, Unstable Angina, STEMI, NSTEMI Aortic Dissection, Pneumothorax, Musculoskeletal, Esophageal Spasm GERD, Cholecystitis, Pancreatitis, Zoster, this is not meant to be an all-inclusive list. le] EKG interpreted by me (3pts min.). @ -As above X-rays interpreted by me (1pt min.). @ -Chest x-ray shows no acute process CT interpreted by me (1pt min.). @ -None done U/S interpreted by me (1pt. min.). @ -None done What testing was considered but not performed or refused? (CT, X-rays, U/S, labs)? Why? @ -None What meds were considered but not given or refused? Why? @ -None Did you discuss the management of the patient with other professionals (professionals i.e. , PA, KINESIOLOGIST, lab, RT, psych nurse, social service assistant, yard manager, teacher, strike operations officer, shoe caser)? Give summary @ -Case was discussed with Dr. Whitaker who is familiar with this patient and will admit covering the pace program Was smoking cessation discussed for >3mins.? @ -No Was critical care preformed (if so, how long)? @ -No Were there social determinants of health that impacted care today? How? (Homelessness, low income, unemployed, alcoholism, drug addiction, transportation, low edu. Level, literacy, decrease access to med. care, shelter, rehab)? @ -No Was there de-escalation of care discussed even if they declined (Discuss DNR or withdrawal of care, Hospice)? DNR status @ -No What co-morbidities impacted this encounter? (DM, HTN, Smoking, COPD, CAD, Cancer, CVA, ARF, Chemo, Hep., AIDS, mental health diagnosis, sleep apnea, morbid obesity)? @ -None Was patient admitted / discharged? Hospital course, mention meds given and route, prescriptions, significant lab abnormalities, going to OR and other pertinent info. @ -Patient reevaluated and resting comfortably in bed, symptom free at this time. Patient updated on results and plan. Patient will be admitted for cardiac observation Undiagnosed new problem with uncertain prognosis? @ -No Drug Therapy requiring intensive monitoring for toxicity (Heparin, Nitro, Insulin, Cardizem)? @ -No Were any procedures done? @ -No Diagnosis/symptom? @ -Chest pain Acute, or Chronic, or Acute on Chronic? @ -Acute Uncomplicated (without systemic symptoms) or Complicated (systemic symptoms)? @ -default Side effects of treatment? @ -No Exacerbation, Progression, or Severe Exacerbation? @ -No Poses a threat to life or bodily function? How? (Chest pain, [place], [place], pneumonia, PE, COPD, DKA, ARF, appy, cholecystitis, CVA, Diverticulitis, Homicidal, Suicidal, threat to staff... and all critical care pts) @ -No - Lab Data Result diagrams: 07/06/22 13:15 07/06/22 13:15 Lab Results 07/06/22 07/06/22 07/06/22 Range/Units 13:15 13:15 13:15 WBC 7.6 (3.8-10.6) k/uL RBC 4.32 (4.30-5.90) m/uL Hgb 13.5 (13.0-17.5) gm/dL Hct 40.3 (39.0-53.0) % MCV 93.3 (80.0-100.0) fL MCH 31.2 (25.0-35.0) pg MCHC 33.5 (31.0-37.0) g/dL RDW 13.4 (11.5-15.5) % Plt Count 131 L (150-450) k/uL MPV 8.9 Neutrophils % 77 % Lymphocytes % 14 % Monocytes % 4 % Eosinophils % 2 % Basophils % 0 % Neutrophils # 5.8 (1.3-7.7) k/uL Lymphocytes # 1.1 (1.0-4.8) k/uL Monocytes # 0.3 (0-1.0) k/uL Eosinophils # 0.2 (0-0.7) k/uL Basophils # 0.0 (0-0.2) k/uL PT 10.2 (9.0-12.0) sec INR 1.0 (<1.2) APTT 23.7 (22.0-30.0) sec Sodium 138 (137-145) mmol/L Potassium 5.2 H (3.5-5.1) mmol/L Chloride 110 H (98-107) mmol/L Carbon Dioxide 20 L (22-30) mmol/L Anion Gap 8 mmol/L BUN 33 H (9-20) mg/dL Creatinine 1.40 H (0.66-1.25) mg/dL Est GFR (CKD-EPI)AfAm 61 (>60 ml/min/1.73 sqM) Est GFR (CKD-EPI)NonAf 53 (>60 ml/min/1.73 sqM) Glucose 144 H (74-99) mg/dL Calcium 8.5 (8.4-10.2) mg/dL Magnesium 1.7 (1.6-2.3) mg/dL Total Bilirubin 0.6 (0.2-1.3) mg/dL AST 26 (17-59) U/L ALT 30 (4-49) U/L Alkaline Phosphatase 71 (38-126) U/L Troponin I (0.000-0.034) ng/mL Total Protein 6.0 L (6.3-8.2) g/dL Albumin 3.5 (3.5-5.0) g/dL 07/06/22 Range/Units 13:15 WBC (3.8-10.6) k/uL RBC (4.30-5.90) m/uL Hgb (13.0-17.5) gm/dL Hct (39.0-53.0) % MCV (80.0-100.0) fL MCH (25.0-35.0) pg MCHC (31.0-37.0) g/dL RDW (11.5-15.5) % Plt Count (150-450) k/uL MPV Neutrophils % % Lymphocytes % % Monocytes % % Eosinophils % % Basophils % % Neutrophils # (1.3-7.7) k/uL Lymphocytes # (1.0-4.8) k/uL Monocytes # (0-1.0) k/uL Eosinophils # (0-0.7) k/uL Basophils # (0-0.2) k/uL PT (9.0-12.0) sec INR (<1.2) APTT (22.0-30.0) sec Sodium (137-145) mmol/L Potassium (3.5-5.1) mmol/L Chloride (98-107) mmol/L Carbon Dioxide (22-30) mmol/L Anion Gap mmol/L BUN (9-20) mg/dL Creatinine (0.66-1.25) mg/dL Est GFR (CKD-EPI)AfAm (>60 ml/min/1.73 sqM) Est GFR (CKD-EPI)NonAf (>60 ml/min/1.73 sqM) Glucose (74-99) mg/dL Calcium (8.4-10.2) mg/dL Magnesium (1.6-2.3) mg/dL Total Bilirubin (0.2-1.3) mg/dL AST (17-59) U/L ALT (4-49) U/L Alkaline Phosphatase (38-126) U/L Troponin I 0.032 (0.000-0.034) ng/mL Total Protein (6.3-8.2) g/dL Albumin (3.5-5.0) g/dL Disposition Clinical Impression: Chest pain Disposition: ADMITTED IP TO THIS HOSP Is patient prescribed a controlled substance at d/c from ED?: No Referrals: None,Stated [Primary Care Provider] - 1-2 days Time of Disposition: 16:27
[2022-07-06 13:24] LABS: Basophils % (A) 0 %; Eosinophils # (A) 0.2 k/uL (0-0.7); Eosinophils % (A) 2 %; HCT 40.3 % (39.0-53.0); HGB 13.5 gm/dL (13.0-17.5); Lymphocytes # (A) 1.1 k/uL (1.0-4.8); Lymphocytes % (A) 14 %; MCH 31.2 pg (25.0-35.0); MCHC 33.5 g/dL (31.0-37.0); MCV 93.3 fL (80.0-100.0); Mean Platelet Volume 8.9; Monocytes # (A) 0.3 k/uL (0-1.0); Monocytes % (A) 4 %; Neutrophils # (A) 5.8 k/uL (1.3-7.7); Neutrophils % (A) 77 %; Platelet Count 131 k/uL (150-450); RBC 4.32 m/uL (4.30-5.90); RDW 13.4 % (11.5-15.5); WBC 7.6 k/uL (3.8-10.6)
[2022-07-06 13:33] LABS: Albumin 3.5 g/dL (3.5-5.0); Calcium 8.5 mg/dL (8.4-10.2); Magnesium 1.7 mg/dL (1.6-2.3); Potassium 5.2 mmol/L (3.5-5.1); Total Bilirubin 0.6 mg/dL (0.2-1.3)
[2022-07-06 13:34] LABS: Partial Thromboplastin Time 23.7 sec (22.0-30.0); Prothrombin Time 10.2 sec (9.0-12.0)
--- NOTE | 2022-07-06 14:00 | XR ---
EXAMINATION TYPE: XR chest 2V DATE OF EXAM: 07/06/2022 COMPARISON: 04/22/2022 HISTORY: Shortness of breath TECHNIQUE: Frontal and lateral views of the chest are obtained. FINDINGS: Scattered senescent parenchymal changes noted. Hyperinflation compatible with COPD. No evidence for infiltrate. No evidence for atelectasis. Heart size is stable. Mediastinal structures are stable and grossly unremarkable. No evidence for hilar prominence. Degenerative changes dorsal spine. IMPRESSION: 1. No evidence for acute pulmonary disease.
[2022-07-06] MEDS ORDERED: NITROGLYCERIN SL TABS 0.4 MG TAB SUBLINGUAL PRN (16:27)
[2022-07-06] MEDS ORDERED: IPRATROPIUM-ALBUTEROL 3 ML NEB INHALATION PRN (17:19)
[2022-07-06] MEDS ORDERED: DEXTROSE 50% SYRINGE 50 ML IVP PRN ×2 (17:44)
[2022-07-06] MEDS ORDERED: NALOXONE 0.4 MG/ML 1 ML VIAL IV PRN (17:44)
[2022-07-06] MEDS ORDERED: ACETAMINOPHEN TAB 325 MG TAB PO PRN (17:44)
--- NOTE | 2022-07-06 17:47 | P.HPIM ---
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 Patient reports taking his medication on an empty stomach this morning which made him feel nauseated. He reports 2 episodes of NBNB vomiting. He felt some chest tightness at that time. Staff at [facility] took his BP and noted it to be low. On These symptoms were concerning for patient to come to the ED. Currently, he reports no chest pain. He denies any headache, nausea or vomiting, fever or chills, cough, shortness of breath, palpitations, changes in urination or bowel habits. No changes in appetite or weight. He denies any dizziness, numbness/weakness/tingling of the extremities. In the ED, his vital signs are stable on room air. CBC showed platelet count of 131. Coagulation panel negative. CMP showed potassium of 5.2, chloride of 110, bicarb of 20, BUN of 33, creatinine 1.4, glucose 144. Troponin was 0.032. Chest x-ray was negative. EKG shows sinus rhythm with ventricular rate of 80, right bundle bran ch block. Patient is admitted for chest pain, rule out acute coronary syndrome with cardiology consultation. General: non toxic, no distress, appears at stated age Derm: warm, dry Head: atraumatic, normocephalic, symmetric Eyes: EOMI, no lid lag, anicteric sclera Mouth: no lip lesion, mucus membranes moist Cardiovascular: S1S2 reg, no murmur Lungs: CTA bilateral, no rhonchi, no rales , no accessory muscle use Ext: no gross muscle atrophy, 2+ edema, no contractures Neuro: no focal neuro deficits Psych: Patient is a poor historian but AO x 3 #Chest pain #Acute kidney injury #Hyperkalemia #Thrombocytopenia Chronic conditions: Diabetes mellitus, GERD, history of CHF, chronic respiratory failure Patient presents with chest tightness in the setting of hypotension after multiple episodes on N/V. He appears to be a poor historian but endorses multiple risk factors including CAD needing a triple bypass, diabetes mellitus and history of smoking. Troponins will be trended and ACS will be ruled out. Patient will be restarted on ASA, Lipitor, Plavix and Coreg. Cardiology will be consulted for further management of this patient. His prerenal azotemia is likely related to use of Lasix and Losartan. We will encourage hydration by mouth and continue to monitor. His potassium is mildly elevated at 5.2 which is likely related to acute kidney injury. Plans to repeat BMP tomorrow morning. Low dose insulin sliding scale will be ordered along with accuchecks ACHS and hypoglycemic precautions. Restart Pepcid. Patient is on an ACEi and beta chance with regard to his history of CHF. Supplemental O2 to maintain O2 saturation > 92%. DuoNeb as needed for SOB/wheezing. Heparin for DVT prophylaxis. Patient will be placed FULL CODE. He does have a guardian. Past Medical History Past Medical History: Cancer, Heart Failure, Diabetes Mellitus, Hypertension Additional Past Medical History / Comment(s): CVA, HTN, HLD Last Myocardial Infarction Date:: 2020 History of Any Multi-Drug Resistant Organisms: None Reported Past Surgical History: Appendectomy, Tonsillectomy Additional Past Surgical History / Comment(s): cataracts, vasectomy, Past Anesthesia/Blood Transfusion Reactions: No Reported Reaction Past Psychological History: Depression Smoking Status: Former smoker Past Alcohol Use History: None Reported Past Drug Use History: None Reported - Past Family History Father Additional Family Medical History / Comment(s): Father had multiple MIs and from one at the age of 51 yrs. Mother Additional Family Medical History / Comment(s): Mother had a bad heart. Medications and Allergies Home Medications Medication Instructions Recorded Confirmed Type Aspirin EC [Ecotrin Low Dose] 81 mg PO DAILY 01/12/19 07/06/22 History Atorvastatin [Lipitor] 80 mg PO HS 01/12/19 07/06/22 History Clopidogrel Bisulfate [Plavix] 75 mg PO DAILY 07/28/21 07/06/22 History Ferrous Sulfate [Iron (65 MG 325 mg PO DAILY 07/28/21 07/06/22 History Elemental)] Ipratropium-Albuterol Nebulize 3 ml INHALATION RT-QID PRN 07/28/21 07/06/22 History [Duoneb 0.5 mg-3 mg/3 ml Soln] Famotidine [Pepcid] 20 mg PO BID 03/18/22 07/06/22 History Losartan [Cozaar] 12.5 mg PO DAILY #0 03/20/22 07/06/22 Rx Dulaglutide [Trulicity] 1.5 mg SQ TH 04/01/22 07/06/22 History Insulin Aspart (Niacinamide) 25 units SQ BID 04/01/22 07/06/22 History [Fiasp 100 Unit/ml Flextouch Pen] Insulin Glargine,Hum.rec.anlog 75 units SQ HS 04/01/22 07/06/22 History [Basaglar Kwikpen U-100] Topiramate [Topamax] 25 mg PO HS 04/01/22 07/06/22 History metFORMIN HCL [Glucophage] 1,000 mg PO BID 04/01/22 07/06/22 History Nitroglycerin Sl Tabs [Nitrostat] 0.4 mg SUBLINGUAL Q5M PRN #30 tab 04/03/22 07/06/22 Rx Acetaminophen [Tylenol] 650 mg PO QID PRN 04/22/22 07/06/22 History Albuterol Sulfate [Albuterol 1 - 2 puff PO RT-Q4H PRN 04/22/22 07/06/22 History Sulfate Hfa] Dicyclomine 10mg/5ml Oral Solution 10 mg PO BID 07/06/22 07/06/22 History Isosorbide Mononitrate ER [Imdur] 30 mg PO DAILY 07/06/22 07/06/22 History carvediloL [Coreg] 25 mg PO DAILY 07/06/22 07/06/22 History Allergies Allergy/AdvReac Type Severity Reaction Status Date / Time furosemide [From Lasix] AdvReac Unknown Verified 07/06/22 13:04 sacubitril [From Entresto] AdvReac made him Verified 07/06/22 13:04 hypotensive valsartan [From Entresto] AdvReac made him Verified 07/06/22 13:04 hypotensive Physical Exam Vitals: Vital Signs Temp Pulse Resp BP Pulse Ox 07/06/22 17:20 79 18 140/80 96 07/06/22 15:02 80 18 136/76 97 07/06/22 12:29 18 07/06/22 12:26 80 18 110/73 07/06/22 11:59 98.4 F 81 18 110/63 100 Intake and Output 07/06/22 07/06/22 07/06/22 06:59 14:59 22:59 Other: Weight 122.47 kg Results CBC & Chem 7: 07/06/22 13:15 07/06/22 13:15 Labs: Abnormal Lab Results - Last 24 Hours (Table) 07/06/22 07/06/22 Range/Units 13:15 13:15 Plt Count 131 L (150-450) k/uL Potassium 5.2 H (3.5-5.1) mmol/L Chloride 110 H (98-107) mmol/L Carbon Dioxide 20 L (22-30) mmol/L BUN 33 H (9-20) mg/dL Creatinine 1.40 H (0.66-1.25) mg/dL Glucose 144 H (74-99) mg/dL Total Protein 6.0 L (6.3-8.2) g/dL
[2022-07-06 19:26] LABS: Glucose,Whole Blood 91 mg/dL (70-110)
[2022-07-06] MEDS: NITROGLYCERIN OINT 1 INCH/GM PACKET TOPICAL SCH ×2 (19:33→23:50)
[2022-07-06] MEDS ORDERED: ATORVASTATIN 80 MG TAB PO SCH (21:00)
[2022-07-06] MEDS ORDERED: TOPIRAMATE 25 MG TAB PO SCH (21:00)
[2022-07-06] MEDS: FAMOTIDINE 20 MG TAB PO SCH (21:38)
[2022-07-06 22:13] LABS: Glucose,Whole Blood 88 mg/dL (70-110)
[2022-07-06] MEDS: INSULIN ASPART (NovoLOG) 100 UNIT/ML VIAL SQ SCH (22:15)
[2022-07-07] MEDS: NITROGLYCERIN OINT 1 INCH/GM PACKET TOPICAL SCH (06:03)
[2022-07-07] MEDS: INSULIN ASPART (NovoLOG) 100 UNIT/ML VIAL SQ SCH ×2 (06:10→12:58)
[2022-07-07 06:11] LABS: Glucose,Whole Blood 138 mg/dL (70-110)
[2022-07-07 06:35] VITALS: BP 161/92; RESP 14; TEMP 98.1
[2022-07-07] MEDS ORDERED: carvediloL 12.5 MG TAB PO SCH (07:30)
[2022-07-07 08:48] VITALS: PULSE 80
[2022-07-07] MEDS: FAMOTIDINE 20 MG TAB PO SCH (08:49)
[2022-07-07] MEDS ORDERED: FERROUS SULFATE 325 MG TAB PO SCH (09:00)
[2022-07-07] MEDS ORDERED: ASPIRIN 325 MG TAB PO SCH (09:00)
[2022-07-07] MEDS ORDERED: ENOXAPARIN 40 MG/0.4 ML SYRINGE SQ SCH (09:00)
[2022-07-07] MEDS ORDERED: ASPIRIN 81 MG PO SCH (09:00)
[2022-07-07] MEDS ORDERED: CLOPIDOGREL 75 MG TAB PO SCH (09:00)
[2022-07-07] MEDS ORDERED: ISOSORBIDE MONONITRATE ER 30 MG TAB.ER.24H PO SCH (09:00)
[2022-07-07 09:45] LABS: African American GFR (CKD) 66.4 (60.0-200.0); BUN/Creat Ratio 25.92 Ratio (12.00-20.00); Blood Urea Nitrogen 33.7 mg/dL (9.0-27.0); Calcium 8.9 mg/dL (8.7-10.3); Carbon Dioxide 22.3 mmol/L (20.0-27.5); Chloride 109 mmol/L (96-109); Chol/HDL Ratio 4.12 Ratio; Glucose 173 mg/dL (70-110); LDL Cholesterol,Calculated 89.6 mg/dL (0.0-131.0); Non-African American GFR(CKD) 57.3 (60.0-200.0); Potassium 4.6 mmol/L (3.5-5.5); Sodium 142 mmol/L (135-145)
--- NOTE | 2022-07-07 10:19 | P.CRDCN ---
History of Present Illness Consult date: 07/07/22 History of present illness: HISTORY OF PRESENT ILLNESS: This is a 67 year old male with a past medical history significant for coronary artery disease, peripheral arterial disease, cardiomyopathy with improved EF, hypertension, hyperlipidemia, and diabetes. Patient follows in the office with Dr. Flores. We have been asked to see the patient in consultation for chest pain. Patient examined at the bedside. Patient states yesterday he was at [facility]. He states that he began to feel nauseous and had an episode of vomiting. Apparently afterwards she was found to be hypotensive and he was sent here by the staff from the [facility]. The patient denied having any chest pain yesterday or today. He was found to have acute kidney injury and was started on IV fluids. The patient states he has felt much better since starting the IV fluids. He is hoping to be discharged today. * EKG reveals sinus mechanism with right bundle branch block. No signs of acute ischemia. * Chest xray negative for acute process * Laboratory data: WBC 7.6. Hemoglobin 13.5. Platelet count 131. Sodium 142. Potassium 4.6. BUN 33. Creatinine 1.40. Repeat 1.30. troponin negative 3 * Current home cardiac medications include aspirin 81 mg daily, carvedilol 25 mg daily, Plavix 75 mg daily, Imdur 30 mg daily, losartan 12.5 mg daily * Most recent echocardiogram obtained in March 2022 revealed ejection fraction 50-55%, mild MR, mild TR * Previous echocardiogram obtained in July 2021 revealed ejection fraction of 30%. * Cardiac catheterization history: March 2022 revealing chronic total occlusion of the distal RCA which fills by contralateral collaterals. intermediate disease involving OM1 of the left circumflex REVIEW OF SYSTEMS: At the time of my exam: CONSTITUTIONAL: Denies fever or chills. HEENT: Denies blurred vision, vision changes, or eye pain. Denies hemoptysis CARDIOVASCULAR: Denies chest pain. Denies orthopnea. Denies PND. Denies palpitations RESPIRATORY: Denies shortness of breath. GASTROINTESTINAL: Denies abdominal pain. Denies nausea or vomiting. HEMATOLOGIC: Denies bleeding disorders. GENITOURINARY: Denies any blood in urine. SKIN: Denies pruitis. Denies rash. PHYSICAL EXAM: VITAL SIGNS: Reviewed. GENERAL: Well-developed in no acute distress. HEENT: Head is normocephalic. Pupils are equal, round. Sclerae anicteric. Mucous membranes of the mouth are moist. Neck supple. No JVD or thyromegaly LUNGS: Respirations even and unlabored. Lungs essentially clear to auscultation bilaterally. HEART: Regular rate and rhythm. S1 and S2 heard. ABDOMEN: Soft. Nondistended. Nontender. EXTREMITIES: Normal range of motion. No clubbing or cyanosis. Peripheral pulses intact. No lower extremity edema NEUROLOGIC: Awake and alert. Oriented x 3. ASSESSMENT: Chest pain, ruled out, patient denies having any chest pain yesterday or today Nausea with vomiting x 1 episode, resolved Hypotension prior to admission, resolved Acute kidney injury Coronary artery disease Peripheral arterial disease History of cardiomyopathy with recovered EF Hypertension Hyperlipidemia Diabetes PLAN: Patient denies having chest pain prior to admission or while in the hospital Obtain limited echo to assess LV function Resume home cardiac medications Patient may be discharged home this afternoon and follow up with Dr. Flores outpatient Nurse practitioner note has been reviewed by physician. Signing provider agrees with the documented findings, assessment, and plan of care. Past Medical History Past Medical History: Cancer, Heart Failure, Diabetes Mellitus, Hyperlipidemia, Hypertension, Myocardial Infarction (MD) Additional Past Medical History / Comment(s): Brain CA (30 years ago) in remission. Last Myocardial Infarction Date:: 2021 History of Any Multi-Drug Resistant Organisms: None Reported Past Surgical History: Appendectomy, Heart Catheterization, Tonsillectomy Additional Past Surgical History / Comment(s): cataracts, vasectomy, partial right foot amputation Past Anesthesia/Blood Transfusion Reactions: No Reported Reaction Past Psychological History: No Psychological Hx Reported Additional Psychological History / Comment(s): Pt resides alone. He states he goes to [facility] 3 times a week for physical therapy and has meals while he is there. He has home oxygen and a nebulizer. Smoking Status: Former smoker Past Alcohol Use History: Abuse, Daily Additional Past Alcohol Use History / Comment(s): Pt started smoking in 1983 nd quit in 1989. Pt states he was a past heavy drinker but quit drinking in 1998. Past Drug Use History: None Reported - Past Family History Father Additional Family Medical History / Comment(s): Father had multiple MIs and from one at the age of 51 yrs. Mother Additional Family Medical History / Comment(s): Mother had a bad heart. Medications and Allergies Home Medications Medication Instructions Recorded Confirmed Type Aspirin EC [Ecotrin Low Dose] 81 mg PO DAILY 01/12/19 07/06/22 History Atorvastatin [Lipitor] 80 mg PO HS 01/12/19 07/06/22 History Clopidogrel Bisulfate [Plavix] 75 mg PO DAILY 07/28/21 07/06/22 History Ferrous Sulfate [Iron (65 MG 325 mg PO DAILY 07/28/21 07/06/22 History Elemental)] Ipratropium-Albuterol Nebulize 3 ml INHALATION RT-QID PRN 07/28/21 07/06/22 History [Duoneb 0.5 mg-3 mg/3 ml Soln] Famotidine [Pepcid] 20 mg PO BID 03/18/22 07/06/22 History Losartan [Cozaar] 12.5 mg PO DAILY #0 03/20/22 07/06/22 Rx Dulaglutide [Trulicity] 1.5 mg SQ TH 04/01/22 07/06/22 History Insulin Aspart (Niacinamide) 25 units SQ BID 04/01/22 07/06/22 History [Fiasp 100 Unit/ml Flextouch Pen] Insulin Glargine,Hum.rec.anlog 75 units SQ HS 04/01/22 07/06/22 History [Basaglar Kwikpen U-100] Topiramate [Topamax] 25 mg PO HS 04/01/22 07/06/22 History metFORMIN HCL [Glucophage] 1,000 mg PO BID 04/01/22 07/06/22 History Nitroglycerin Sl Tabs [Nitrostat] 0.4 mg SUBLINGUAL Q5M PRN #30 tab 04/03/22 07/06/22 Rx Acetaminophen [Tylenol] 650 mg PO QID PRN 04/22/22 07/06/22 History Albuterol Sulfate [Albuterol 1 - 2 puff PO RT-Q4H PRN 04/22/22 07/06/22 History Sulfate Hfa] Dicyclomine 10mg/5ml Oral Solution 10 mg PO BID 07/06/22 07/06/22 History Isosorbide Mononitrate ER [Imdur] 30 mg PO DAILY 07/06/22 07/06/22 History carvediloL [Coreg] 25 mg PO DAILY 07/06/22 07/06/22 History Allergies Allergy/AdvReac Type Severity Reaction Status Date / Time furosemide [From Lasix] AdvReac Unknown Verified 07/06/22 13:04 sacubitril [From Entresto] AdvReac made him Verified 07/06/22 13:04 hypotensive valsartan [From Entresto] AdvReac made him Verified 07/06/22 13:04 hypotensive Physical Exam Vitals: Vital Signs Temp Pulse Pulse Resp BP BP Pulse Ox 07/07/22 09:09 14 07/07/22 08:48 80 07/07/22 08:37 80 07/07/22 08:00 86 14 07/07/22 06:33 98.1 F 86 14 161/92 99 07/07/22 06:04 98.4 F 87 16 149/82 99 07/07/22 02:00 18 07/07/22 00:53 97.6 F 84 19 125/68 98 07/06/22 23:30 92 18 07/06/22 23:14 98.1 F 92 18 148/76 99 07/06/22 22:00 90 18 155/92 97 07/06/22 19:25 90 18 163/86 97 07/06/22 17:20 79 18 140/80 96 07/06/22 15:02 80 18 136/76 97 07/06/22 12:29 18 07/06/22 12:26 80 18 110/73 07/06/22 11:59 98.4 F 81 18 110/63 100 Intake and Output 07/06/22 07/07/22 07/07/22 22:59 06:59 14:59 Intake Total 0 Balance 0 Intake: Oral 0 Other: Voiding Method Toilet Toilet # Voids 1 Weight 122.47 kg Results 07/06/22 13:15 07/07/22 05:33 Cardiac Enzymes 07/06/22 07/06/22 07/06/22 Range/Units 13:15 13:15 18:39 AST 26 (17-59) U/L Troponin I 0.032 0.031 (0.000-0.034) ng/mL 07/06/22 Range/Units 21:56 AST (17-59) U/L Troponin I 0.033 (0.000-0.034) ng/mL Coagulation 07/06/22 Range/Units 13:15 PT 10.2 (9.0-12.0) sec APTT 23.7 (22.0-30.0) sec Lipids 07/07/22 Range/Units 05:33 Triglycerides 169.00 H (0.00-149.00) mg/dL Cholesterol 163.00 (0.00-200.00) mg/dL HDL Cholesterol 39.60 L (40.00-60.00) mg/dL Cholesterol/HDL Ratio 4.12 Ratio CBC 07/06/22 Range/Units 13:15 WBC 7.6 (3.8-10.6) k/uL RBC 4.32 (4.30-5.90) m/uL Hgb 13.5 (13.0-17.5) gm/dL Hct 40.3 (39.0-53.0) % Plt Count 131 L (150-450) k/uL Comprehensive Metabolic Panel 07/06/22 07/07/22 Range/Units 13:15 05:33 Sodium 138 142 (137-145) mmol/L Potassium 5.2 H 4.6 (3.5-5.1) mmol/L Chloride 110 H 109 (98-107) mmol/L Carbon Dioxide 20 L 22.3 (22-30) mmol/L BUN 33 H 33.7 H (9-20) mg/dL Creatinine 1.40 H 1.3 (0.66-1.25) mg/dL Glucose 144 H 173 H (74-99) mg/dL Calcium 8.5 8.9 (8.4-10.2) mg/dL AST 26 (17-59) U/L ALT 30 (4-49) U/L Alkaline Phosphatase 71 (38-126) U/L Total Protein 6.0 L (6.3-8.2) g/dL Albumin 3.5 (3.5-5.0) g/dL Current Medications Generic Name Dose Route Start Last Admin Trade Name Freq PRN Reason Stop Dose Admin Acetaminophen 650 mg 07/06/22 17:44 07/07/22 09:26 Acetaminophen Tab 325 Mg Tab PO 325 mg Q6HR PRN Administration Mild Pain or Fever > 100.5 Albuterol/Ipratropium 3 ml 07/06/22 17:19 07/07/22 08:36 Ipratropium-Albuterol 3 Ml Neb INHALATION 3 ml RT-QID PRN Administration Shortness Of Breath Aspirin 81 mg 07/07/22 09:00 07/07/22 08:50 Aspirin 81 Mg PO 81 mg DAILY [facility] Administration Atorvastatin Calcium 80 mg 07/06/22 21:00 07/06/22 21:38 Atorvastatin 80 Mg Tab PO 80 mg HS [facility] Administration Carvedilol 25 mg 07/07/22 07:30 07/07/22 06:06 Carvedilol 12.5 Mg Tab PO 25 mg [id number]-[id number] [facility] Administration Clopidogrel Bisulfate 75 mg 07/07/22 09:00 07/07/22 08:49 Clopidogrel 75 Mg Tab PO 75 mg DAILY TWILA Administration Dextrose/Water 25 ml 07/06/22 17:44 Dextrose 50% Syringe 50 Ml IVP PER PROTOCOL PRN Hypoglycemia Protocol Dextrose/Water 50 ml 07/06/22 17:44 Dextrose 50% Syringe 50 Ml IVP PER PROTOCOL PRN Hypoglycemia Protocol Enoxaparin Sodium 40 mg 07/07/22 09:00 07/07/22 08:50 Enoxaparin 40 Mg/0.4 Ml Syringe SQ 40 mg DAILY [facility] Administration Famotidine 20 mg 07/06/22 21:00 07/07/22 08:49 Famotidine 20 Mg Tab PO 20 mg BID [facility] Administration Ferrous Sulfate 325 mg 07/07/22 09:00 07/07/22 08:49 Ferrous Sulfate 325 Mg Tab PO 325 mg DAILY [facility] Administration Insulin Aspart 0 unit 07/06/22 21:00 07/07/22 06:10 Insulin Aspart (Novolog) 100 Unit/Ml Vial SQ Not Given ACHS [facility] Protocol Isosorbide Mononitrate 30 mg 07/07/22 09:00 07/07/22 08:49 Isosorbide Mononitrate Er 30 Mg Tab.Er.24h PO 30 mg DAILY [facility] Administration Naloxone HCl 0.2 mg 07/06/22 17:44 Naloxone 0.4 Mg/Ml 1 Ml Vial IV Q2M PRN Opioid Reversal Nitroglycerin 0.4 mg 07/06/22 16:27 Nitroglycerin Sl Tabs 0.4 Mg Tab SUBLINGUAL Q5M PRN Chest Pain Nitroglycerin 1 inch 07/06/22 18:00 07/07/22 06:03 Nitroglycerin Oint 1 Inch/Gm Packet TOPICAL Not Given Q6HR [facility] Sodium Chloride 10 ml 07/06/22 21:00 07/07/22 07:36 Sodium Chloride 0.9% Flush 10 Ml Syringe IV 10 ml BID TWILA Administration Topiramate 25 mg 07/06/22 21:00 07/06/22 21:43 Topiramate 25 Mg Tab PO 25 mg HS TWILA Administration Intake and Output 07/06/22 07/07/22 07/07/22 22:59 06:59 14:59 Intake Total 0 Balance 0 Intake: Oral 0 Other: Voiding Method Toilet Toilet # Voids 1 Weight 122.47 kg 07/06/22 13:15 07/07/22 05:33
--- NOTE | 2022-07-07 11:18 | CA ---
Transthoracic Echo Report Name: Simon Valdez Age: 67 Gender: M : 1955 Exam Date: 07/07/2022 08:31 Exam Location: [facility] Ht (in): 72 Wt (lb): 270 Ordering Physician: Neeta Ritter Attending/Referring Phys: [id number], [employer] Lisa Chand RDCS Procedure CPT: Indications: LV function Cardiac Hx: Technical Quality: Fair Contrast 1: Total Dose (mL): Contrast 2: Total Dose (mL): MEASUREMENTS (Male / Female) Normal Values 2D ECHO LV Diastolic Volume MOD BP 169.3 cm??? 67 - 155 / 56 - 104 cm??? LV Systolic Volume MOD BP 103.3 cm??? 22 - 58 / 19 - 49 cm??? LV Ejection Fraction MOD BP 39.0 % >= 55 % LV Diastolic Volume MOD 4C 189.5 cm??? LV Systolic Volume MOD 4C 134.8 cm??? LV Ejection Fraction MOD 4C 28.9 % LV Diastolic Length 4C 10.0 cm LV Systolic Length 4C 9.2 cm LV Diastolic Volume MOD 2C 145.1 cm??? LV Systolic Volume MOD 2C 69.4 cm??? LV Ejection Fraction MOD 2C 52.2 % LV Diastolic Length 2C 9.5 cm LV Systolic Length 2C 8.0 cm FINDINGS Left Ventricle Moderately increased left ventricular diastolic volume. Severely increased left ventricular systolic volume. Moderately decreased left ventricular ejection fraction. Left ventricular ejection fraction is estimated at 45%. Right Ventricle Right Atrium Left Atrium Mitral Valve No mitral regurgitation Aortic Valve Tricuspid Valve Pulmonic Valve Pericardium Aorta CONCLUSIONS Limited 2-D echo Left ventricular ejection fraction 45% Previewed by: Dr. Rory Davis DO (Electronically Signed) Final Date: 07 July 2022 11:17
--- NOTE | 2022-07-07 11:43 | P.DS ---
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 Patient reports taking his medication on an empty stomach this morning which made him feel nauseated. He reports 2 episodes of NBNB vomiting. He felt some chest tightness at that time. Staff at [facility] took his BP and noted it to be low. On These symptoms were concerning for patient to come to the ED. Currently, he reports no chest pain. He denies any headache, nausea or vomiting, fever or chills, cough, shortness of breath, palpitations, changes in urination or bowel habits. No changes in appetite or weight. He denies any dizziness, numbness/weakness/tingling of the extremities. In the ED, his vital signs are stable on room air. CBC showed platelet count of 131. Coagulation panel negative. CMP showed potassium of 5.2, chloride of 110, bicarb of 20, BUN of 33, creatinine 1.4, glucose 144. Troponin was 0.032. Chest x-ray was negative. EKG shows sinus rhythm with ventricular rate of 80, right bundle branch block. Patient is admitted for chest pain, rule out acute coronary syndrome with cardiology consultation. His troponins were trended and ACS was ruled out. He remained normotensive during this hospitalization. His losartan was held overnight and his creatinine improved from 1.4-1.3. His hyperkalemia resolved on the day of discharge. Cardiology was consulted and recommended echocardiogram. Echocardiogram showed EF of 45%. Patient was cleared from a cardiology perspective for discharge home and outpatient follow-up. Patient was seen and examined. No acute events overnight. Patient reports no chest pain. He is advised follow-up with his PCP within 1-2 days of discharge. He is advised follow-up with cardiology within 1 week of discharge. Pertinent studies include chest x-ray, echocardiogram. General: non toxic, no distress, appears at stated age Derm: warm, dry Head: atraumatic, normocephalic, symmetric Eyes: EOMI, no lid lag, anicteric sclera Mouth: no lip lesion, mucus membranes moist Cardiovascular: S1S2 reg, no murmur Lungs: CTA bilateral, no rhonchi, no rales , no accessory muscle use Ext: no gross muscle atrophy, 2+ edema Neuro: no focal neuro deficits Psych: Patient is a poor historian but AO x 3 Discharge diagnosis: #Chest pain #Acute kidney injury #Hyperkalemia #Thrombocytopenia Chronic conditions: Diabetes mellitus, GERD, history of CHF, chronic respiratory failure This complex discharge took 35 minutes to complete. Patient Condition at Discharge: Stable Plan - Discharge Summary New Discharge Prescriptions: Continue Atorvastatin [Lipitor] 80 mg PO HS Aspirin EC [Ecotrin Low Dose] 81 mg PO DAILY Ipratropium-Albuterol Nebulize [Duoneb 0.5 mg-3 mg/3 ml Soln] 3 ml INHALATION RT-QID PRN PRN Reason: Shortness Of Breath Clopidogrel Bisulfate [Plavix] 75 mg PO DAILY Famotidine [Pepcid] 20 mg PO BID metFORMIN HCL [Glucophage] 1,000 mg PO BID Insulin Aspart (Niacinamide) [Fiasp 100 Unit/ml Flextouch Pen] 25 units SQ BID Dulaglutide [Trulicity] 1.5 mg SQ TH Nitroglycerin Sl Tabs [Nitrostat] 0.4 mg SUBLINGUAL Q5M PRN #30 tab PRN Reason: Chest Pain Acetaminophen [Tylenol] 650 mg PO QID PRN PRN Reason: Fever And/ Or Pain Albuterol Sulfate [Albuterol Sulfate Hfa] 1 - 2 puff PO RT-Q4H PRN PRN Reason: Shortness Of Breath Isosorbide Mononitrate ER [Imdur] 30 mg PO DAILY Ferrous Sulfate [Iron (65 MG Elemental)] 325 mg PO DAILY Losartan [Cozaar] 12.5 mg PO DAILY #0 Topiramate [Topamax] 25 mg PO HS Insulin Glargine,Hum.rec.anlog [Basaglar Kwikpen U-100] 75 units SQ HS carvediloL [Coreg] 25 mg PO DAILY Dicyclomine 10mg/5ml Oral Solution 10 mg PO BID Discharge Medication List Aspirin EC [Ecotrin Low Dose] 81 mg PO DAILY 01/12/19 [History] Atorvastatin [Lipitor] 80 mg PO HS 01/12/19 [History] Clopidogrel Bisulfate [Plavix] 75 mg PO DAILY 07/28/21 [History] Ferrous Sulfate [Iron (65 MG Elemental)] 325 mg PO DAILY 07/28/21 [History] Ipratropium-Albuterol Nebulize [Duoneb 0.5 mg-3 mg/3 ml Soln] 3 ml INHALATION RT-QID PRN 07/28/21 [History] Famotidine [Pepcid] 20 mg PO BID 03/18/22 [History] Losartan [Cozaar] 12.5 mg PO DAILY #0 03/20/22 [Rx] Dulaglutide [Trulicity] 1.5 mg SQ TH 04/01/22 [History] Insulin Aspart (Niacinamide) [Fiasp 100 Unit/ml Flextouch Pen] 25 units SQ BID 04/01/22 [History] Insulin Glargine,Hum.rec.anlog [Basaglar Kwikpen U-100] 75 units SQ HS 04/01/22 [History] Topiramate [Topamax] 25 mg PO HS 04/01/22 [History] metFORMIN HCL [Glucophage] 1,000 mg PO BID 04/01/22 [History] Nitroglycerin Sl Tabs [Nitrostat] 0.4 mg SUBLINGUAL Q5M PRN #30 tab 04/03/22 [Rx] Acetaminophen [Tylenol] 650 mg PO QID PRN 04/22/22 [History] Albuterol Sulfate [Albuterol Sulfate Hfa] 1 - 2 puff PO RT-Q4H PRN 04/22/22 [History] Dicyclomine 10mg/5ml Oral Solution 10 mg PO BID 07/06/22 [History] Isosorbide Mononitrate ER [Imdur] 30 mg PO DAILY 07/06/22 [History] carvediloL [Coreg] 25 mg PO DAILY 07/06/22 [History] Follow up Appointment(s)/Referral(s): John Flores MD [STAFF PHYSICIAN] - 1 Week None,Stated [Primary Care Provider] - 1-2 days Activity/Diet/Wound Care/Special Instructions: Diet: Cardiac Follow-up with your PCP within 1-2 days of discharge. Follow-up with cardiology within 1 week of discharge. Come back to the ED for worsening chest pain, shortness of breath, palpitations or lightheadedness. Discharge Disposition: HOME SELF-CARE
[2022-07-07 12:31] LABS: Glucose,Whole Blood 183 mg/dL (70-110)
== END 2022-07-07 14:18 | disposition home or self-care (01) ==
LOC: EC 11:56 → 6NMEDSUR 16:27 → 3SCARD 21:50 → 6NMEDSUR 21:51
PROVIDERS: ADMIT Internal Medicine; ATTEND Internal Medicine
DX: R07.9 Chest pain, unspecified (principal); E87.5 Hyperkalemia; D69.6 Thrombocytopenia, unspecified; K21.9 Gastro-esophageal reflux disease without esophagitis; E11.51 Type 2 diabetes mellitus with diabetic peripheral angiopathy without gangrene; N17.9 Acute kidney failure, unspecified; I50.9 Heart failure, unspecified; J96.10 Chronic respiratory failure, unspecified whether with hypoxia or hypercapnia; I10 Essential (primary) hypertension; E78.5 Hyperlipidemia, unspecified; Z86.73 Personal history of transient ischemic attack (TIA), and cerebral infarction without residual deficits; Z90.49 Acquired absence of other specified parts of digestive tract; Z98.49 Cataract extraction status, unspecified eye; Z98.52 Vasectomy status; F32.A Depression, unspecified; Z87.891 Personal history of nicotine dependence; Z82.49 Family history of ischemic heart disease and other diseases of the circulatory system; Z79.84 Long term (current) use of oral hypoglycemic drugs; Z79.02 Long term (current) use of antithrombotics/antiplatelets; Z79.82 Long term (current) use of aspirin; Z79.899 Other long term (current) drug therapy; Z88.8 Allergy status to other drugs, medicaments and biological substances
CPT/HCPCS: 96374; 99285; 36415; 94640; 93005; 93308; 80061; 80053; 80048; 83735; 84484; 85025; 85610; 85730; 71046; G0378 ×2; J1650

== ENCOUNTER 2022-08-13 09:36 | Emergency (ER) | payer MEDICARE, OTHER ==
[2022-08-13 09:43] VITALS: PULSE 86; TEMP 98
[2022-08-13 10:22] LABS: Basophils % (A) 0 %; Eosinophils # (A) 0.3 k/uL (0-0.7); Eosinophils % (A) 3 %; HCT 39.2 % (39.0-53.0); Lymphocytes # (A) 1.5 k/uL (1.0-4.8); Lymphocytes % (A) 19 %; MCH 30.7 pg (25.0-35.0); MCHC 33.2 g/dL (31.0-37.0); MCV 92.5 fL (80.0-100.0); Mean Platelet Volume 8.7; Monocytes # (A) 0.4 k/uL (0-1.0); Monocytes % (A) 5 %; Neutrophils # (A) 5.7 k/uL (1.3-7.7); Neutrophils % (A) 71 %; Platelet Count 163 k/uL (150-450); RBC 4.24 m/uL (4.30-5.90); RDW 13.9 % (11.5-15.5); WBC 8.1 k/uL (3.8-10.6)
--- NOTE | 2022-08-13 10:36 | ED ---
General Adult HPI - General Chief complaint: Recheck/Abnormal Lab/Rx Stated complaint: abn labs Time Seen by Provider: 08/13/22 09:38 Source: patient, RN notes reviewed Mode of arrival: ambulatory Limitations: no limitations - History of Present Illness Initial comments: 67-year-old male presents emergency Department chief complaint of hyperkalemia. Patient states that she home call stating that has just was elevated. Patient states he has no symptoms he will yesterday for preoperative laboratory studies. Patient does not take any supplemental potassium. No chest pain no palpitations. - Related Data Home Medications Medication Instructions Recorded Confirmed Aspirin EC [Ecotrin Low Dose] 81 mg PO DAILY 01/12/19 07/06/22 Atorvastatin [Lipitor] 80 mg PO HS 01/12/19 07/06/22 Clopidogrel Bisulfate [Plavix] 75 mg PO DAILY 07/28/21 07/06/22 Ferrous Sulfate [Iron (65 MG 325 mg PO DAILY 07/28/21 07/06/22 Elemental)] Ipratropium-Albuterol Nebulize 3 ml INHALATION RT-QID PRN 07/28/21 07/06/22 [Duoneb 0.5 mg-3 mg/3 ml Soln] Famotidine [Pepcid] 20 mg PO BID 03/18/22 07/06/22 Dulaglutide [Trulicity] 1.5 mg SQ TH 04/01/22 07/06/22 Insulin Aspart (Niacinamide) 25 units SQ BID 04/01/22 07/06/22 [Fiasp 100 Unit/ml Flextouch Pen] Insulin Glargine,Hum.rec.anlog 75 units SQ HS 04/01/22 07/06/22 [Basaglar Kwikpen U-100] Topiramate [Topamax] 25 mg PO HS 04/01/22 07/06/22 metFORMIN HCL [Glucophage] 1,000 mg PO BID 04/01/22 07/06/22 Acetaminophen [Tylenol] 650 mg PO QID PRN 04/22/22 07/06/22 Albuterol Sulfate [Albuterol 1 - 2 puff PO RT-Q4H PRN 04/22/22 07/06/22 Sulfate Hfa] Dicyclomine 10mg/5ml Oral Solution 10 mg PO BID 07/06/22 07/06/22 Isosorbide Mononitrate ER [Imdur] 30 mg PO DAILY 07/06/22 07/06/22 carvediloL [Coreg] 25 mg PO DAILY 07/06/22 07/06/22 Previous Rx's Medication Instructions Recorded Losartan [Cozaar] 12.5 mg PO DAILY #0 03/20/22 Nitroglycerin Sl Tabs [Nitrostat] 0.4 mg SUBLINGUAL Q5M PRN #30 tab 04/03/22 Allergies Allergy/AdvReac Type Severity Reaction Status Date / Time furosemide [From Lasix] AdvReac Unknown Verified 08/13/22 09:41 sacubitril [From Entresto] AdvReac made him Verified 08/13/22 09:41 hypotensive valsartan [From Entresto] AdvReac made him Verified 08/13/22 09:41 hypotensive Review of Systems ROS Statement: Those systems with pertinent positive or pertinent negative responses have been documented in the HPI. ROS Other: All systems not noted in ROS Statement are negative. Past Medical History Past Medical History: Cancer, Heart Failure, Diabetes Mellitus, Hyperlipidemia, Hypertension, Myocardial Infarction (DC) Additional Past Medical History / Comment(s): Brain CA (30 years ago) in remission. Last Myocardial Infarction Date:: 2021 History of Any Multi-Drug Resistant Organisms: None Reported Past Surgical History: Appendectomy, Heart Catheterization, Tonsillectomy Additional Past Surgical History / Comment(s): cataracts, vasectomy, partial right foot amputation Past Anesthesia/Blood Transfusion Reactions: No Reported Reaction Past Psychological History: No Psychological Hx Reported Smoking Status: Former smoker Past Alcohol Use History: None Reported, Abuse, Daily Past Drug Use History: None Reported - Past Family History Father Additional Family Medical History / Comment(s): Father had multiple MIs and from one at the age of 51 yrs. Mother Additional Family Medical History / Comment(s): Mother had a bad heart. General Exam Limitations: no limitations Course Vital Signs 08/13/22 08/13/22 09:41 11:44 Temperature 98 F Pulse Rate 86 86 Respiratory 16 18 Rate Blood Pressure 141/72 125/80 O2 Sat by Pulse 97 98 Oximetry EKG Findings - EKG Comments: EKG Findings:: EKG performed at 10:12 sinus rhythm rate of 77 ND 198 QRS 166 QT/ QTC 443/475 - EKG Results: EKG: interpreted by [facility] Medical Decision Making - Medical Decision Making Was pt. sent in by a medical professional or institution (, ÁNGELA, FIELD RADIO OPERATOR, urgent care, hospital, or correction...) When possible be specific @ -[Sent in by PCP for evaluation of hyperkalemia Did you speak to anyone other than the patient for history (EMS, parent, family, police, friend...)? What history was obtained from this source @ -No Did you review nursing and triage notes (agree or disagree)? Why? @ -I reviewed and agree with nursing and triage notes Were old charts reviewed (outside hosp., previous admission, EMS record, old EKG, old radiological studies, urgent care reports/EKG's, correction records)? Report findings @ -No old charts were reviewed Differential Diagnosis (chest pain, altered mental status, abdominal pain women, abdominal pain men, vaginal bleeding, weakness, fever, dyspnea, syncope, headache, dizziness, GI bleed, back pain, seizure, CVA, palpatations, mental health, musculoskeletal)? @ -Hyperkalemia, renal failure, EKG interpreted by me (3pts min.). @ -As above X-rays interpreted by me (1pt min.). @ -None done CT interpreted by me (1pt min.). @ -None done U/S interpreted by me (1pt. min.). @ -None done What testing was considered but not performed or refused? (CT, X-rays, U/S, labs)? Why? @ -None What meds were considered but not given or refused? Why? @ -None Did you discuss the management of the patient with other professionals (professionals i.e. ÁNGELA Whitmore, FIELD RADIO OPERATOR, lab, RT, psych nurse, high school social science teacher, tool and die assembler, teacher, second officer, case advocate)? Give summary @ -No Was smoking cessation discussed for >3mins.? @ -No Was critical care preformed (if so, how long)? @ -No Were there social determinants of health that impacted care today? How? (Homelessness, low income, unemployed, alcoholism, drug addiction, transportation, low edu. Level, literacy, decrease access to med. care, alf, rehab)? @ -No Was there de-escalation of care discussed even if they declined (Discuss DNR or withdrawal of care, Hospice)? DNR status @ -No What co-morbidities impacted this encounter? (DM, HTN, Smoking, COPD, CAD, Cancer, CVA, ARF, Chemo, Hep., AIDS, mental health diagnosis, sleep apnea, morbid obesity)? @ -None Was patient admitted / discharged? Hospital course, mention meds given and route, prescriptions, significant lab abnormalities, going to OR and other pertinent info. @ -Patient's potassium within normal is. Patient discharged in stable condition return parameters discussed. Undiagnosed new problem with uncertain prognosis? @ -No Drug Therapy requiring intensive monitoring for toxicity (Heparin, Nitro, Insulin, Cardizem)? @ -No Were any procedures done? @ -No Diagnosis/symptom? @ -Laboratory recheck for hyperkalemia Acute, or Chronic, or Acute on Chronic? @ -Acute Uncomplicated (without systemic symptoms) or Complicated (systemic symptoms)? @ -Uncomplicated Side effects of treatment? @ -No Exacerbation, Progression, or Severe Exacerbation? @ -No Poses a threat to life or bodily function? How? (Chest pain, USA, DC, pneumonia, PE, COPD, DKA, ARF, appy, cholecystitis, CVA, Diverticulitis, Homicidal, Suicidal, threat to staff... and all critical care pts) @ -No - Lab Data Result diagrams: 08/13/22 09:53 08/13/22 09:53 Lab Results 08/13/22 08/13/22 Range/Units 09:53 09:53 WBC 8.1 (3.8-10.6) k/uL RBC 4.24 L (4.30-5.90) m/uL Hgb 13.0 (13.0-17.5) gm/dL Hct 39.2 (39.0-53.0) % MCV 92.5 (80.0-100.0) fL MCH 30.7 (25.0-35.0) pg MCHC 33.2 (31.0-37.0) g/dL RDW 13.9 (11.5-15.5) % Plt Count 163 (150-450) k/uL MPV 8.7 Neutrophils % 71 % Lymphocytes % 19 % Monocytes % 5 % Eosinophils % 3 % Basophils % 0 % Neutrophils # 5.7 (1.3-7.7) k/uL Lymphocytes # 1.5 (1.0-4.8) k/uL Monocytes # 0.4 (0-1.0) k/uL Eosinophils # 0.3 (0-0.7) k/uL Basophils # 0.0 (0-0.2) k/uL Sodium 138 (137-145) mmol/L Potassium 5.1 (3.5-5.1) mmol/L Chloride 107 (98-107) mmol/L Carbon Dioxide 20 L (22-30) mmol/L Anion Gap 11 mmol/L BUN 50 H (9-20) mg/dL Creatinine 1.17 (0.66-1.25) mg/dL Est GFR (CKD-EPI)AfAm 75 (>60 ml/min/1.73 sqM) Est GFR (CKD-EPI)NonAf 65 (>60 ml/min/1.73 sqM) Glucose 157 H (74-99) mg/dL Calcium 8.3 L (8.4-10.2) mg/dL Total Bilirubin 0.7 (0.2-1.3) mg/dL AST 31 (17-59) U/L ALT 29 (4-49) U/L Alkaline Phosphatase 67 (38-126) U/L Total Protein 6.4 (6.3-8.2) g/dL Albumin 3.8 (3.5-5.0) g/dL Disposition Clinical Impression: Encounter for laboratory test Disposition: HOME SELF-CARE Condition: Stable Additional Instructions: Please return to the Emergency Department if symptoms worsen or any other concerns. Is patient prescribed a controlled substance at d/c from ED?: No Referrals: Connor Nicholson MD [Primary Care Provider] - 1-2 days Time of Disposition: 11:12
[2022-08-13 10:57] LABS: Albumin 3.8 g/dL (3.5-5.0); Calcium 8.3 mg/dL (8.4-10.2); Potassium 5.1 mmol/L (3.5-5.1); Total Bilirubin 0.7 mg/dL (0.2-1.3); Total Protein 6.4 g/dL (6.3-8.2)
[2022-08-13 11:50] VITALS: BP 125/80; RESP 18
== END 2022-08-13 11:50 | disposition home or self-care (01) ==
LOC: EC 09:36
DX: Z00.00 Encounter for general adult medical examination without abnormal findings (principal); I11.0 Hypertensive heart disease with heart failure; I50.9 Heart failure, unspecified; E78.5 Hyperlipidemia, unspecified; I25.2 Old myocardial infarction; E11.9 Type 2 diabetes mellitus without complications; Z87.891 Personal history of nicotine dependence; Z88.8 Allergy status to other drugs, medicaments and biological substances; Z79.82 Long term (current) use of aspirin; Z79.84 Long term (current) use of oral hypoglycemic drugs; Z79.4 Long term (current) use of insulin; Z79.899 Other long term (current) drug therapy
CPT/HCPCS: 36415; 80053; 85025; 93005; 99285

== ENCOUNTER 2022-08-18 06:07 | Day surgery (SDC) | payer OTHER ==
[~2022-08-18 06:07] MED LIST: ALPRAZolam 0.25 MG TAB PO PRN; ALPRAZolam 0.5 MG TAB PO PRN; HEPARIN SODIUM,PORCINE 10,000 UNIT in SODIUM CHLORIDE 0.9% 1,000 ML IRRIGATION PRN; HEPARIN SODIUM,PORCINE 2,500 UNIT in SODIUM CHLORIDE 0.9% 250 ML IRRIGATION PRN; SODIUM CHLORIDE 0.9% 1,000 ML in EMPTY BAG 1 BAG IV ONE; ZOLPIDEM 5 MG TAB PO PRN
[2022-08-18] MEDS ORDERED: SODIUM CHLORIDE 0.9% 1,000 ML IV ONE (06:19)
[2022-08-18 06:41] LABS: Glucose,Whole Blood 105 mg/dL (70-110)
[2022-08-18] MEDS ORDERED: CLOPIDOGREL 75 MG TAB PO STA (06:46)
[2022-08-18] MEDS ORDERED: CLOPIDOGREL 75 MG TAB ONE (06:47)
[2022-08-18] MEDS ORDERED: ASPIRIN 325 MG TAB PO PRN (07:00)
[2022-08-18] MEDS ORDERED: LIDOCAINE 1% INJ 10MG/ML (20 ML MDV) ONE (07:14)
[2022-08-18 07:22] VITALS: RESP 16; TEMP 97.5
[2022-08-18] MEDS ORDERED: MIDAZOLAM 2 MG/2 ML VIAL IVP ONE (07:39)
[2022-08-18] MEDS ORDERED: LIDOCAINE 1% INJ 10MG/ML (30 ML VIAL-PF) SQ ONE (07:42)
[2022-08-18] MEDS ORDERED: IOPAMIDOL-370 100ML BTL INJ ONE ×2 (07:55)
[2022-08-18] MEDS ORDERED: NALOXONE 0.4 MG/ML 1 ML VIAL IVP PRN (08:01)
--- NOTE | 2022-08-18 08:06 | P.PCN ---
Date of Procedure: 08/18/22 Operative Findings: AN ABDOMINAL AORTOGRAM AND BILATERAL LOWER EXTREMITIES RUNOFF PERFORMING PHYSICIAN: John Flores MD PROCEDURE PERFORMED: 1. An abdominal aortogram 2. Bilateral lower extremities runoff 3. Ultrasound-guided access of the right common femoral artery INDICATION: Bilateral lower extremities discomfort concerning for intermittent claudication in to 67-year-old gentleman who underwent an arterial study and that showed severe fem-pop disease COMPLICATION: None LEVEL OF SEDATION: Moderate was sedation length of 15 minutes APPROACH: Right common femoral artery PROCEDURE DESCRIPTION: After obtaining informed consent and explaining the procedure benefits, risks, and complications, the patient was brought to the cardiac labor standards director. The right groin was prepped and draped in sterile fashion. The right common femoral artery was cannulated using micropuncture technique, under ultrasound guidance. A micropuncture wire was advanced, and the micropuncture sheath was advanced over the wire, then the micropuncture sheath was exchanged over an 0.35 wire into a 5-Amharic sheath dilator assembly then the wire and dilator were removed and sheath was flushed. We did an abdominal aortogram and bilateral lower extremities runoff using 5- Amharic pigtail catheter using a power injection. The catheter was initially placed at the level of the renal arteries, and it was pulled into above the bifurcation of the aorta into right and left common iliac arteries. The procedure was completed and there was no complications. SELECTIVE PERIPHERAL ANGIOGRAM: The abdominal aorta: Appeared to be angiographically normal The common iliac arteries: Have mild disease bilaterally The external iliac arteries: Right external iliac artery appeared to have intermediate disease. The left external iliac artery appeared to be angiographically normal The internal iliac arteries: Both are patent The common femoral arteries: Both appeared to be angiographically normal Superficial femoral arteries: The right SFA is occluded. 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
[2022-08-18] MEDS ORDERED: SODIUM CHLORIDE 0.9% 1,000 ML in EMPTY BAG 1 BAG IV SCH (08:15)
--- NOTE | 2022-08-18 08:32 | IR ---
EXAMINATION TYPE: IR angio abdominal w runoff DATE OF EXAM: 08/18/2022 COMPARISON: NONE HISTORY: Fluoroscopy time. Fluoroscopy was provided to the referring clinician.
[2022-08-18] MEDS ORDERED: LOSARTAN 25 MG TAB PO SCH (10:00)
[2022-08-18] MEDS ORDERED: carvediloL 12.5 MG TAB PO SCH (10:00)
[2022-08-18] MEDS ORDERED: ISOSORBIDE MONONITRATE ER 30 MG TAB.ER.24H PO SCH (10:00)
[2022-08-18 12:17] VITALS: PULSE 96
[2022-08-18 12:28] VITALS: BP 150/74
== END 2022-08-18 13:35 | disposition home or self-care (01) ==
LOC: CATHCVL 06:07
PROVIDERS: ATTEND Internal Medicine Interventional Cardiology
DX: I73.9 Peripheral vascular disease, unspecified (principal); E11.9 Type 2 diabetes mellitus without complications; I10 Essential (primary) hypertension; E78.5 Hyperlipidemia, unspecified; F17.210 Nicotine dependence, cigarettes, uncomplicated; E66.3 Overweight; Z79.899 Other long term (current) drug therapy
CPT/HCPCS: 36200; 99152; 75625; 75716; 76937; C1769 ×3; C1894; J2250; J2001; Q9967

== ENCOUNTER 2022-11-04 10:31 | Observation (INO) | payer OTHER ==
--- NOTE | 2022-11-04 10:44 | ED ---
SOB HPI - General Chief Complaint: Shortness of Breath Stated Complaint: sob Time Seen by Provider: 11/04/22 10:33 Source: patient, EMS, RN notes reviewed Mode of arrival: EMS Limitations: no limitations - History of Present Illness Initial Comments: This is a 67-year-old male who presents to the emergency department for shortness of breath. Patient had a check up at [facility] today, and when he arrived, they found him to be hypotensive and hypoxic. Per EMS, they measured the patient having blood pressures of 60s over 30s with low oxygen saturation. Patient is on 2 L of oxygen at home and has increased his oxygen to 4 L. However, when EMS arrived, they found his blood pressure to be in the 110s over 60s. Patient had expressed that he was not prescribed Lasix upon discharge, and he feels like he is "filling back up with water". However, patient was prescribed Lasix on discharge and has been noncompliant with it. I spoke with Dr. Nicholson, the patient's PCP. He expressed concerns over the patient's presentation at [facility] this morning. States that when he arrived he looked turner and diaphoretic. They measured his blood pressure multiple times and state that it was 60-70/30-40 each time. He also states that the patient has multiple psychiatric issues and is noncompliant with his medication because he thinks that his providers are trying to kill him. He inquired about keeping the patient for observation overnight, especially with his concerning presentation this morning. Denies any fevers, chills, sore throat, chest pain, palpitations, abdominal pain, nausea, vomiting, diarrhea, back pain, or headaches. MD Complaint: shortness of breath, cough - Related Data Home Medications Medication Instructions Recorded Confirmed Aspirin EC [Ecotrin Low Dose] 81 mg PO DAILY 01/12/19 11/04/22 Atorvastatin [Lipitor] 80 mg PO HS 01/12/19 11/04/22 Clopidogrel Bisulfate [Plavix] 75 mg PO DAILY 07/28/21 11/04/22 Ferrous Sulfate [Iron (65 MG 325 mg PO DAILY 07/28/21 11/04/22 Elemental)] Ipratropium-Albuterol Nebulize 3 ml INHALATION RT-QID PRN 07/28/21 11/04/22 [Duoneb 0.5 mg-3 mg/3 ml Soln] Famotidine [Pepcid] 20 mg PO BID 03/18/22 11/04/22 Dulaglutide [Trulicity] 1.5 mg SQ TH 04/01/22 11/04/22 Insulin Aspart (Niacinamide) 25 units SQ BID 04/01/22 11/04/22 [Fiasp 100 Unit/ml Flextouch Pen] Insulin Glargine,Hum.rec.anlog 75 units SQ HS 04/01/22 11/04/22 [Basaglar Kwikpen U-100] Topiramate [Topamax] 25 mg PO HS 04/01/22 11/04/22 Acetaminophen [Tylenol] 650 mg PO QID PRN 04/22/22 11/04/22 Albuterol Sulfate [Albuterol 1 - 2 puff INHALATION RT-Q4H PRN 04/22/22 11/04/22 Sulfate Hfa] Dicyclomine 10mg/5ml Oral Solution 10 mg PO TID 07/06/22 11/04/22 Isosorbide Mononitrate ER [Imdur] 30 mg PO DAILY 07/06/22 11/04/22 Lactulose [Cephulac] 20 gm PO DAILY 10/15/22 11/04/22 traMADol HCL 50 mg PO Q6H 10/15/22 11/04/22 Nitroglycerin Sl Tabs [Nitrostat] 0.4 mg SL Q5M PRN 10/20/22 11/04/22 metFORMIN HCL [Glucophage] 1,000 mg PO BID 10/20/22 11/04/22 Previous Rx's Medication Instructions Recorded Furosemide [Lasix] 40 mg PO DAILY #30 tablet 10/29/22 carvediloL [Coreg] 6.25 mg PO BID-W/MEALS #60 tab 10/29/22 methylPREDNISolone Dose Pack 4 mg PO DIRECTED #1 packet 10/29/22 [Medrol Dose Pack] Losartan [Cozaar] 12.5 mg PO DAILY tab 10/30/22 Allergies Allergy/AdvReac Type Severity Reaction Status Date / Time furosemide [From Lasix] AdvReac Unknown Verified 11/04/22 10:40 sacubitril [From Entresto] AdvReac made him Verified 11/04/22 10:40 hypotensive valsartan [From Entresto] AdvReac made him Verified 11/04/22 10:40 hypotensive Review of Systems ROS Statement: Those systems with pertinent positive or pertinent negative responses have been documented in the HPI. ROS Other: All systems not noted in ROS Statement are negative. Past Medical History Past Medical History: Cancer, Heart Failure, Dementia, Diabetes Mellitus, GERD/Reflux, Hearing Disorder / Deafness, Hyperlipidemia, Hypertension, Myocardial Infarction ([place]), Osteoarthritis (OA), Pneumonia Additional Past Medical History / Comment(s): Brain CA (30 years ago) in remission. 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 Mother Additional Family Medical History / Comment(s): Mother had a bad heart. General Exam Limitations: no limitations General appearance: alert, in no apparent distress Head exam: Present: atraumatic, normocephalic, normal inspection Respiratory exam: Present: rhonchi, decreased breath sounds, prolonged expiratory Cardiovascular Exam: Present: regular rate, normal rhythm, normal heart sounds. Absent: systolic murmur, diastolic murmur, rubs, gallop, clicks Extremities exam: Present: other (1-2+ pitting edema to the bilateral LEs.) Neurological exam: Present: alert, oriented X3, CN II-XII intact Psychiatric exam: Present: normal affect, normal mood Skin exam: Present: warm, dry, intact, normal color. Absent: rash Course Vital Signs 11/04/22 11/04/22 11/04/22 10:32 10:33 10:40 Temperature 98.4 F Pulse Rate 68 66 Respiratory 24 5 L Rate Blood Pressure 109/64 109/64 109/64 O2 Sat by Pulse 99 99 98 Oximetry 11/04/22 11/04/22 11/04/22 10:50 11:00 11:10 Temperature Pulse Rate 64 63 Respiratory 16 16 Rate Blood Pressure 109/64 109/64 122/78 O2 Sat by Pulse 96 99 Oximetry 11/04/22 11/04/22 11/04/22 11:20 11:30 11:40 Temperature Pulse Rate 65 63 Respiratory 20 17 20 Rate Blood Pressure 122/78 106/62 118/60 O2 Sat by Pulse 98 98 87 L Oximetry 11/04/22 11/04/22 11/04/22 11:50 12:00 12:10 Temperature Pulse Rate 61 62 63 Respiratory 11 L 17 18 Rate Blood Pressure 118/60 118/60 119/67 O2 Sat by Pulse 99 97 98 Oximetry 11/04/22 11/04/22 11/04/22 12:20 12:38 14:00 Temperature Pulse Rate 64 68 64 Respiratory 20 20 18 Rate Blood Pressure 119/67 112/70 130/69 O2 Sat by Pulse 99 100 99 Oximetry 11/04/22 11/04/22 11/04/22 14:30 15:00 15:30 Temperature Pulse Rate 68 65 64 Respiratory 18 18 18 Rate Blood Pressure 128/70 127/73 135/64 O2 Sat by Pulse 100 100 100 Oximetry 11/04/22 16:00 Temperature Pulse Rate 65 Respiratory 18 Rate Blood Pressure 130/72 O2 Sat by Pulse 100 Oximetry Medical Decision Making - Medical Decision Making This is a 67-year-old male who presents to the emergency department for shortness of breath. Was pt. sent in by a medical professional or institution? @ -No Did you speak to anyone other than the patient for history? @ -EMS, who provided all of the information that was communicated by Ghada GONZALES. I also spoke with Dr. Nicholson, who provided all of the information with regards to the patient being noncompliant with his medication as listed in the HPI. Did you review nursing and triage notes? @ -Yes, and I agree, it is accurate with regards to the patient's symptoms. Were old charts reviewed? @ -No Differential Diagnosis? @ -Differential Dyspnea: Coronary syndrome, arrhythmia, tamponade, asthma, COPD, pulmonary embolism, pneumonia, pneumothorax, pulmonary effusion, anaphylaxis, diabetic ketoacidosis, flailed chest, pulmonary contusion, diaphragmatic rupture, anemia, neuromuscular, this is not meant to be an all-inclusive list. EKG interpreted by me (3pts min.)? @ -EKG interpreted by me demonstrating the following: Sinus rhythm. Ventricular rate 64 beats per minute, MD interval 202 ms, QRS duration 164 ms, QTC 466 ms. X-rays interpreted by me (1pt min.)? @ -Chest x-ray obtained, my interpretation identifies no localized consolidations or infiltrates. CT interpreted by me (1pt min.)? @ -Not obtained U/S interpreted by me (1pt. min.)? @ -Not obtained What testing was considered but not performed? (CT, X-rays, U/S, labs)? Why? @ -None What meds were considered but not given? Why? @ -None Did you discuss the management of the patient with other professionals? @ -No Did you reconcile home meds? @ -No Was smoking cessation discussed for >3mins.? @ -No Was critical care preformed (if so, how long)? @ -No Were there social determinants of health that impacted care today? How? (Homelessness, low income, unemployed, alcoholism, drug addiction, transportation, low edu. Level, literacy, decrease access to med. care, [facility], rehab)? @ -No Was there de-escalation of care discussed even if they declined? (Discuss DNR or withdrawal of care, Hospice)? @ -No What co-morbidities impacted this encounter? (DM, HTN, Smoking, COPD, CAD, Cancer, CVA, Hep., AIDS, mental health diagnosis, sleep apnea, morbid obesity)? @ -CHF, dementia, DM, HLD, HTN Was patient admitted / discharged? @ -Admitted. Lab work obtained revealing elevated BNP of 8660. This is notab ly increased when compared with his BNP on 10/20, which was 2760. Patient has been noncompliant with his Lasix, as he believes that this is being prescribed in an attempt to kill him. He is also noncompliant with most of his medications. 40 mg of IV Lasix was administered. Patient's blood pressure remained adequate while in the emergency department. He did not exhibit any hypotensive episodes as reported at [facility] this morning. I spoke with his PCP, Dr. Nicholson, who voiced concern about his presentation this morning and inquired about keeping the patient for observation. He also advised that he may consider putting the patient in a shelter to help with his noncompliance and managing his multiple medical issues. Patient admitted to medicine for CHF exacerbation. Undiagnosed new problem with uncertain prognosis? @ -None Drug Therapy requiring intensive monitoring for toxicity (Heparin, Nitro, Insulin, Cardizem)? @ -None Were any procedures done? @ -None Diagnosis/symptom? @ -CHF exacerbation Acute, or Chronic, or Acute on Chronic? @ -Acute Uncomplicated (without systemic symptoms) or Complicated (systemic symptoms)? @ -Complicated Side effects of treatment? @ -None Exacerbation, Progression, or Severe Exacerbation] @ -Not applicable Poses a threat to life or bodily function? @ -Yes This case was discussed in detail with the attending ED physician, Dr. Cee. Presentation, findings, and treatment plan discussed in detail as well. - Lab Data Result diagrams: 11/04/22 10:48 11/04/22 10:48 Lab Results 11/04/22 11/04/22 11/04/22 Range/Units 10:48 10:48 10:48 WBC 10.3 (3.8-10.6) k/uL RBC 4.13 L (4.30-5.90) m/uL Hgb 13.0 (13.0-17.5) gm/dL Hct 40.8 (39.0-53.0) % MCV 98.8 (80.0-100.0) fL MCH 31.6 (25.0-35.0) pg MCHC 31.9 (31.0-37.0) g/dL RDW 13.6 (11.5-15.5) % Plt Count 139 L (150-450) k/uL MPV 9.3 Neutrophils % 81 % Lymphocytes % 8 % Monocytes % 6 % Eosinophils % 4 % Basophils % 0 % Neutrophils # 8.4 H (1.3-7.7) k/uL Lymphocytes # 0.8 L (1.0-4.8) k/uL Monocytes # 0.7 (0-1.0) k/uL Eosinophils # 0.4 (0-0.7) k/uL Basophils # 0.0 (0-0.2) k/uL PT 9.9 (9.0-12.0) sec INR 0.9 (<1.2) APTT 23.6 (22.0-30.0) sec Sodium 135 L (137-145) mmol/L Potassium 5.4 H (3.5-5.1) mmol/L Chloride 106 (98-107) mmol/L Carbon Dioxide 23 (22-30) mmol/L Anion Gap 6 mmol/L BUN 35 H (9-20) mg/dL Creatinine 1.16 (0.66-1.25) mg/dL Est GFR (CKD-EPI)AfAm 77 (>60 ml/min/1.73 sqM) Est GFR (CKD-EPI)NonAf 66 (>60 ml/min/1.73 sqM) Glucose 311 H (74-99) mg/dL Plasma Lactic Acid Anselmo (0.7-2.0) mmol/L Calcium 8.1 L (8.4-10.2) mg/dL Total Bilirubin 0.9 (0.2-1.3) mg/dL AST 24 (17-59) U/L ALT 29 (4-49) U/L Alkaline Phosphatase 71 (38-126) U/L Troponin I (0.000-0.034) ng/mL NT-Pro-B Natriuret Pep 8660 pg/mL Total Protein 6.1 L (6.3-8.2) g/dL Albumin 3.5 (3.5-5.0) g/dL 11/04/22 11/04/22 Range/Units 10:48 10:48 WBC (3.8-10.6) k/uL RBC (4.30-5.90) m/uL Hgb (13.0-17.5) gm/dL Hct (39.0-53.0) % MCV (80.0-100.0) fL MCH (25.0-35.0) pg MCHC (31.0-37.0) g/dL RDW (11.5-15.5) % Plt Count (150-450) k/uL MPV Neutrophils % % Lymphocytes % % Monocytes % % Eosinophils % % Basophils % % Neutrophils # (1.3-7.7) k/uL Lymphocytes # (1.0-4.8) k/uL Monocytes # (0-1.0) k/uL Eosinophils # (0-0.7) k/uL Basophils # (0-0.2) k/uL PT (9.0-12.0) sec INR (<1.2) APTT (22.0-30.0) sec Sodium (137-145) mmol/L Potassium (3.5-5.1) mmol/L Chloride (98-107) mmol/L Carbon Dioxide (22-30) mmol/L Anion Gap mmol/L BUN (9-20) mg/dL Creatinine (0.66-1.25) mg/dL Est GFR (CKD-EPI)AfAm (>60 ml/min/1.73 sqM) Est GFR (CKD-EPI)NonAf (>60 ml/min/1.73 sqM) Glucose (74-99) mg/dL Plasma Lactic Acid Anselmo 1.1 (0.7-2.0) mmol/L Calcium (8.4-10.2) mg/dL Total Bilirubin (0.2-1.3) mg/dL AST (17-59) U/L ALT (4-49) U/L Alkaline Phosphatase (38-126) U/L Troponin I 0.033 (0.000-0.034) ng/mL NT-Pro-B Natriuret Pep pg/mL Total Protein (6.3-8.2) g/dL Albumin (3.5-5.0) g/dL - Radiology Data Radiology results: report reviewed, image reviewed Disposition Clinical Impression: Acute exacerbation of CHF (congestive heart failure) Disposition: ADMITTED IP TO THIS HOSP
[2022-11-04 11:06] LABS: Basophils % (A) 0 %; Eosinophils # (A) 0.4 k/uL (0-0.7); Eosinophils % (A) 4 %; HCT 40.8 % (39.0-53.0); Lymphocytes # (A) 0.8 k/uL (1.0-4.8); Lymphocytes % (A) 8 %; MCH 31.6 pg (25.0-35.0); MCHC 31.9 g/dL (31.0-37.0); MCV 98.8 fL (80.0-100.0); Mean Platelet Volume 9.3; Monocytes # (A) 0.7 k/uL (0-1.0); Monocytes % (A) 6 %; Neutrophils # (A) 8.4 k/uL (1.3-7.7); Neutrophils % (A) 81 %; Platelet Count 139 k/uL (150-450); RBC 4.13 m/uL (4.30-5.90); RDW 13.6 % (11.5-15.5); WBC 10.3 k/uL (3.8-10.6)
[2022-11-04 11:14] LABS: INR 0.9 (<1.2); Partial Thromboplastin Time 23.6 sec (22.0-30.0); Prothrombin Time 9.9 sec (9.0-12.0)
[2022-11-04 11:30] LABS: ALT 29 U/L (4-49); AST 24 U/L (17-59); African American GFR (CKD) 77 (>60 ml/min/1.73 sqM); Albumin 3.5 g/dL (3.5-5.0); Alkaline Phosphatase 71 U/L (38-126); Anion Gap 6 mmol/L; Blood Urea Nitrogen 35 mg/dL (9-20); Calcium 8.1 mg/dL (8.4-10.2); Carbon Dioxide 23 mmol/L (22-30); Chloride 106 mmol/L (98-107); Glucose 311 mg/dL (74-99); Non-African American GFR(CKD) 66 (>60 ml/min/1.73 sqM); Potassium 5.4 mmol/L (3.5-5.1); Sodium 135 mmol/L (137-145); Total Bilirubin 0.9 mg/dL (0.2-1.3); Total Protein 6.1 g/dL (6.3-8.2)
[2022-11-04 11:38] LABS: NT-Pro-B-Type Natriuretic Pept 8660 pg/mL
[2022-11-04] MEDS ORDERED: FUROSEMIDE 10 MG/ML 4 ML VIAL IV STA (11:49)
[2022-11-04] MEDS ORDERED: ACETAMINOPHEN TAB 325 MG TAB PO PRN ×2 (13:28→16:18)
[2022-11-04] MEDS ORDERED: ONDANSETRON 4 MG/2 ML VIAL IVP PRN (13:28)
[2022-11-04] MEDS ORDERED: NALOXONE 0.4 MG/ML 1 ML VIAL IV PRN (13:28)
--- NOTE | 2022-11-04 13:28 | XR ---
EXAMINATION TYPE: XR chest 2V DATE OF EXAM: 11/04/2022 11:01 AM COMPARISON: Chest radiographs from 10/28/2022 TECHNIQUE: XR chest 2V Frontal and lateral views of the chest. CLINICAL INDICATION:Male, 67 years old with history of difficulty breathing; FINDINGS: Lungs/Pleura: Low lung volumes are present. There is no evidence of pleural effusion, focal consolida tion, or pneumothorax. Pulmonary vascularity: Unremarkable. Heart/mediastinum: Cardiomediastinal silhouette is unremarkable. Musculoskeletal: No acute osseous pathology. IMPRESSION: No acute cardiopulmonary disease/process.
[2022-11-04] MEDS ORDERED: ALBUTEROL NEBULIZED 2.5 MG/3 ML INHALATION PRN (16:18)
[2022-11-04] MEDS ORDERED: IPRATROPIUM-ALBUTEROL 3 ML NEB INHALATION PRN (16:18)
--- NOTE | 2022-11-04 16:22 | P.HPIM ---
History of Present Illness H&P Date: 11/04/22 Chief Complaint: hypotension 67-year-old man with medical history of CAD status post CABG, systolic heart failure, diabetes, hypertension, hyperlipidemia, GERD presented for evaluation of episode of hypotension. Patient was sent in by [facility] primary care provider who had concerns of hypotension during blood pressure check taken in this clinic. Patient has a history of heart failure. Volume overload as well, prompting his request for his evaluation in the emergency room. Patient says that he does not have any dyspnea, cough, fevers, nausea, vomiting, chest pain, palpitations, syncope, PCP, dyspnea, abdominal pain, constipation, diarrhea, dysuria, dyschezia, numbness/weakness of extremities. In the emergency room, patient was afebrile, 130/69, heart rate 64, 99% on 2 L nasal cannula. CBC is unremarkable. Basic metabolic panel shows sodium of 135, potassium 5.4, BUN of 35, creatinine of 1.16, glucose of 311, calcium of 8.1. Liver function tests are unremarkable. BNP was 8660. Troponins 0.033. Coags are unremarkable.EKG shows sinus rhythm with right bundle branch block, left anterior fascicular block. Chest x-ray shows clear parenchyma bilaterally, no overt signs of heart failure, no new opacities or infiltrates. Case was discussed the emergency room provider decision was made to admit the patient to observation for further management of electrolyte derangements and hypoxemic respiratory failure with mild heart failure exacerbation. All Systems reviewed and pertinent positives and negatives noted in HPI, all other symptoms are negative Gen: in no apparent distress, resting comfortably in bed Eyes: PERRL, no scleral injection or icterus HENT: normocephalic, atraumatic, good hearing acuity, moist mucous membranes Neck: no tracheal deviation, full range of motion Resp: good air exchange, breathing comfortably with no accessory muscle use, no tactile fremitus CVS: good distal perfusion x 4, no pitting edema GI: soft, NTTP, ND, no hepatosplenomegaly : no suprapubic tenderness, no CVAT, nunez catheter not present MSK: no clubbing, no cyanosis, no noted contractures of extremities Skin: no noted rashes, petechiae; temperature of skin is appropriate Neuro: moving all extremities without signs of weakness, CN II-XII intact Psych: cooperative, euthymic mood, insight and judgment intact Labs and imaging as above Assessment: Acute on chronic systolic heart failure exacerbation, ejection fraction 45% Hyperkalemia CAD Hypertension Hyperlipidemia Diabetes type 2 GERD without esophagitis Plan: Vital signs reviewed and noted in the HPI Lab work reviewed and noted in the HPI EKG and CXR are personally interpreted and noted in the HPI Case was discussed with the Emergency Room provider and decision was made to admit the patient for electronic arrangements, heart failure exacerbation Patient received 40 mg IV Lasix in the emergency room, resume 40 mg by mouth daily Reduce patient's Coreg to 3.125 by mouth twice a day Resume patient's losartan, Imdur Patient is full code Past Medical History Past Medical History: Cancer, Heart Failure, Dementia, Diabetes Mellitus, GERD/Reflux, Hearing Disorder / Deafness, Hyperlipidemia, Hypertension, Myocardial Infarction ([place]), Osteoarthritis (OA), Pneumonia Additional Past Medical History / Comment(s): Brain CA (30 years ago) in remission. 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 Mother Additional Family Medical History / Comment(s): Mother had a bad heart. Medications and Allergies Home Medications Medication Instructions Recorded Confirmed Type Aspirin EC [Ecotrin Low Dose] 81 mg PO DAILY 01/12/19 11/04/22 History Atorvastatin [Lipitor] 80 mg PO HS 01/12/19 11/04/22 History Clopidogrel Bisulfate [Plavix] 75 mg PO DAILY 07/28/21 11/04/22 History Ferrous Sulfate [Iron (65 MG 325 mg PO DAILY 07/28/21 11/04/22 History Elemental)] Ipratropium-Albuterol Nebulize 3 ml INHALATION RT-QID PRN 07/28/21 11/04/22 History [Duoneb 0.5 mg-3 mg/3 ml Soln] Famotidine [Pepcid] 20 mg PO BID 03/18/22 11/04/22 History Dulaglutide [Trulicity] 1.5 mg SQ TH 04/01/22 11/04/22 History Insulin Aspart (Niacinamide) 25 units SQ BID 04/01/22 11/04/22 History [Fiasp 100 Unit/ml Flextouch Pen] Insulin Glargine,Hum.rec.anlog 75 units SQ HS 04/01/22 11/04/22 History [Basaglar Kwikpen U-100] Topiramate [Topamax] 25 mg PO HS 04/01/22 11/04/22 History Acetaminophen [Tylenol] 650 mg PO QID PRN 04/22/22 11/04/22 History Albuterol Sulfate [Albuterol 1 - 2 puff INHALATION RT-Q4H PRN 04/22/22 11/04/22 History Sulfate Hfa] Dicyclomine 10mg/5ml Oral Solution 10 mg PO TID 07/06/22 11/04/22 History Isosorbide Mononitrate ER [Imdur] 30 mg PO DAILY 07/06/22 11/04/22 History Lactulose [Cephulac] 20 gm PO DAILY 10/15/22 11/04/22 History traMADol HCL 50 mg PO Q6H 10/15/22 11/04/22 History Nitroglycerin Sl Tabs [Nitrostat] 0.4 mg SL Q5M PRN 10/20/22 11/04/22 History metFORMIN HCL [Glucophage] 1,000 mg PO BID 10/20/22 11/04/22 History Furosemide [Lasix] 40 mg PO DAILY #30 tablet 10/29/22 11/04/22 Rx carvediloL [Coreg] 6.25 mg PO BID-W/MEALS #60 tab 10/29/22 11/04/22 Rx methylPREDNISolone Dose Pack 4 mg PO DIRECTED #1 packet 10/29/22 11/04/22 Rx [Medrol Dose Pack] Losartan [Cozaar] 12.5 mg PO DAILY tab 10/30/22 11/04/22 Rx Allergies Allergy/AdvReac Type Severity Reaction Status Date / Time furosemide [From Lasix] AdvReac Unknown Verified 11/04/22 10:40 sacubitril [From Entresto] AdvReac made him Verified 11/04/22 10:40 hypotensive valsartan [From Entresto] AdvReac made him Verified 11/04/22 10:40 hypotensive Physical Exam Osteopathic Statement: *. No significant issues noted on an osteopathic structural exam other than those noted in the History and Physical/Consult. Vitals: Vital Signs Temp Pulse Resp BP Pulse Ox 11/04/22 16:00 65 18 130/72 100 11/04/22 15:30 64 18 135/64 100 11/04/22 15:00 65 18 127/73 100 11/04/22 14:30 68 18 128/70 100 11/04/22 14:00 64 18 130/69 99 11/04/22 12:38 68 20 112/70 100 11/04/22 12:20 64 20 119/67 99 11/04/22 12:10 63 18 119/67 98 11/04/22 12:00 62 17 118/60 97 11/04/22 11:50 61 11 L 118/60 99 11/04/22 11:40 63 20 118/60 87 L 11/04/22 11:30 17 106/62 98 11/04/22 11:20 65 20 122/78 98 11/04/22 11:10 63 16 122/78 99 11/04/22 11:00 64 16 109/64 96 11/04/22 10:50 109/64 11/04/22 10:40 66 5 L 109/64 98 11/04/22 10:33 109/64 99 11/04/22 10:32 98.4 F 68 24 109/64 99 Intake and Output 11/04/22 11/04/22 11/04/22 06:59 14:59 22:59 Other: Weight 121.109 kg Results CBC & Chem 7: 11/04/22 10:48 11/04/22 10:48 Labs: Abnormal Lab Results - Last 24 Hours (Table) 11/04/22 11/04/22 Range/Units 10:48 10:48 RBC 4.13 L (4.30-5.90) m/uL Plt Count 139 L (150-450) k/uL Neutrophils # 8.4 H (1.3-7.7) k/uL Lymphocytes # 0.8 L (1.0-4.8) k/uL Sodium 135 L (137-145) mmol/L Potassium 5.4 H (3.5-5.1) mmol/L BUN 35 H (9-20) mg/dL Glucose 311 H (74-99) mg/dL Calcium 8.1 L (8.4-10.2) mg/dL Total Protein 6.1 L (6.3-8.2) g/dL
[2022-11-04 17:17] LABS: Glucose,Whole Blood 240 mg/dL (70-110)
[2022-11-04] MEDS: INSULIN ASPART (NovoLOG) 100 UNIT/ML VIAL SQ SCH (17:22)
[2022-11-04] MEDS: traMADol 50 MG TAB PO SCH (17:23)
[2022-11-04] MEDS: carvediloL 3.125 MG TAB PO SCH (17:23)
[2022-11-04] MEDS ORDERED: carvediloL 6.25 MG TAB PO SCH (17:30)
[2022-11-04 20:54] LABS: Glucose,Whole Blood 221 mg/dL (70-110)
[2022-11-04] MEDS ORDERED: TOPIRAMATE 25 MG TAB PO SCH (21:00)
[2022-11-04] MEDS ORDERED: ATORVASTATIN 80 MG TAB PO SCH (21:00)
[2022-11-04] MEDS ORDERED: INSULIN DETEMIR (LEVEMIR) 100 UNIT/ML SYR SQ SCH (21:00)
[2022-11-04] MEDS: FAMOTIDINE 20 MG TAB PO SCH (22:19)
[2022-11-04] MEDS: DICYCLOMINE 10 MG CAP PO SCH (22:50)
[2022-11-05] MEDS: traMADol 50 MG TAB PO SCH ×3 (01:19→12:07)
[2022-11-05 05:41] LABS: Glucose,Whole Blood 100 mg/dL (70-110)
[2022-11-05] MEDS: carvediloL 3.125 MG TAB PO SCH (06:31)
[2022-11-05] MEDS: INSULIN ASPART (NovoLOG) 100 UNIT/ML VIAL SQ SCH (08:02)
[2022-11-05] MEDS: FAMOTIDINE 20 MG TAB PO SCH (08:02)
[2022-11-05] MEDS: DICYCLOMINE 10 MG CAP PO SCH ×2 (08:02→16:44)
[2022-11-05 08:38] VITALS: RESP 16
[2022-11-05] MEDS ORDERED: FERROUS SULFATE 325 MG TAB PO SCH (09:00)
[2022-11-05] MEDS ORDERED: ASPIRIN 81 MG PO SCH (09:00)
[2022-11-05] MEDS ORDERED: ISOSORBIDE MONONITRATE ER 30 MG TAB.ER.24H PO SCH (09:00)
[2022-11-05] MEDS ORDERED: CLOPIDOGREL 75 MG TAB PO SCH (09:00)
[2022-11-05] MEDS ORDERED: FUROSEMIDE 40 MG TAB PO SCH (09:00)
[2022-11-05] MEDS ORDERED: LACTULOSE 20 GM/30 ML CUP PO SCH (09:00)
[2022-11-05] MEDS ORDERED: LOSARTAN 25 MG TAB PO SCH (09:00)
[2022-11-05 11:42] LABS: Glucose,Whole Blood 100 mg/dL (70-110)
[2022-11-05 14:19] VITALS: TEMP 99.1
[2022-11-05 14:40] VITALS: BP 112/66; PULSE 70
--- NOTE | 2022-11-05 16:35 | P.DS ---
Providers Date of admission: 11/04/22 15:35 Expected date of discharge: 11/05/22 Attending physician: Betito Corcoran MD Primary care physician: Connor Nicholson MD Hospital Course: Assessment: Acute on chronic systolic heart failure exacerbation, ejection fraction 45% Hyperkalemia CAD Hypertension Hyperlipidemia Diabetes type 2 GERD without esophagitis 67-year-old man with medical history of CAD status post CABG, systolic heart fa ilure, diabetes, hypertension, hyperlipidemia, GERD presented for evaluation of episode of hypotension. In the emergency room, patient was afebrile, 130/69, heart rate 64, 99% on 2 L nasal cannula. CBC is unremarkable. Basic metabolic panel shows sodium of 135, potassium 5.4, BUN of 35, creatinine of 1.16, glucose of 311, calcium of 8.1. Liver function tests are unremarkable. BNP was 8660. Troponins 0.033. Coags are unremarkable.EKG shows sinus rhythm with right bundle branch block, left anterior fascicular block. Chest x-ray shows clear parenchyma bilaterally, no overt signs of heart failure, no new opacities or infiltrates. Case was discussed the emergency room provider decision was made to admit the patient to observation for further management of electrolyte derangements and hypoxemic respiratory failure with mild heart failure exacerbation. Patient was admitted and improved with Lasix as well as had his blood pressure medications down titrated. I had an extensive discussion with patient's primary care physician for discharge medication planning, we decided to discontinue patient's Coreg and switch it with lowest dose metoprolol. I recommended he obtain a tilt table test as an outpatient to evaluate for autonomic dysfunction leading to episodes of hypotension. Patient is otherwise stable and ready for discharge, has appropriate follow-up with his primary care physician set up. I spent 40 minutes coordinating this discharge on 11/05 Gen: in no apparent distress, resting comfortably in bed Eyes: PERRL, no scleral injection or icterus HENT: normocephalic, atraumatic, good hearing acuity, moist mucous membranes Neck: no tracheal deviation, full range of motion Resp: good air exchange, breathing comfortably with no accessory muscle use, no tactile fremitus CVS: good distal perfusion x 4, no pitting edema GI: soft, NTTP, ND, no hepatosplenomegaly : no suprapubic tenderness, no CVAT, nunez catheter not present MSK: no clubbing, no cyanosis, no noted contractures of extremities Skin: no noted rashes, petechiae; temperature of skin is appropriate Neuro: moving all extremities without signs of weakness, CN II-XII intact Psych: cooperative, euthymic mood, insight and judgment intact Patient Condition at Discharge: Good Plan - Discharge Summary Discharge Rx Participant: No New Discharge Prescriptions: New Metoprolol Tartrate [Lopressor] 12.5 mg PO BID #60 tablet Continue Atorvastatin [Lipitor] 80 mg PO HS Aspirin EC [Ecotrin Low Dose] 81 mg PO DAILY Ipratropium-Albuterol Nebulize [Duoneb 0.5 mg-3 mg/3 ml Soln] 3 ml INHALATION RT-QID PRN PRN Reason: Shortness Of Breath Clopidogrel Bisulfate [Plavix] 75 mg PO DAILY Famotidine [Pepcid] 20 mg PO BID Insulin Aspart (Niacinamide) [Fiasp 100 Unit/ml Flextouch Pen] 25 units SQ BID Dulaglutide [Trulicity] 1.5 mg SQ TH Acetaminophen [Tylenol] 650 mg PO QID PRN PRN Reason: Fever And/ Or Pain Albuterol Sulfate [Albuterol Sulfate Hfa] 1 - 2 puff INHALATION RT-Q4H PRN PRN Reason: Shortness Of Breath Isosorbide Mononitrate ER [Imdur] 30 mg PO DAILY traMADol HCL 50 mg PO Q6H Furosemide [Lasix] 40 mg PO DAILY #30 tablet methylPREDNISolone Dose Pack [Medrol Dose Pack] 4 mg PO DIRECTED #1 packet Losartan [Cozaar] 12.5 mg PO DAILY tab Ferrous Sulfate [Iron (65 MG Elemental)] 325 mg PO DAILY Topiramate [Topamax] 25 mg PO HS Insulin Glargine,Hum.rec.anlog [Basaglar Kwikpen U-100] 75 units SQ HS Dicyclomine 10mg/5ml Oral Solution 10 mg PO TID Lactulose [Cephulac] 20 gm PO DAILY Nitroglycerin Sl Tabs [Nitrostat] 0.4 mg SL Q5M PRN PRN Reason: Chest Pain metFORMIN HCL [Glucophage] 1,000 mg PO BID Discontinued carvediloL [Coreg] 6.25 mg PO BID-W/MEALS #60 tab Discharge Medication List Aspirin EC [Ecotrin Low Dose] 81 mg PO DAILY 01/12/19 [History] Atorvastatin [Lipitor] 80 mg PO HS 01/12/19 [History] Clopidogrel Bisulfate [Plavix] 75 mg PO DAILY 07/28/21 [History] Ferrous Sulfate [Iron (65 MG Elemental)] 325 mg PO DAILY 07/28/21 [History] Ipratropium-Albuterol Nebulize [Duoneb 0.5 mg-3 mg/3 ml Soln] 3 ml INHALATION RT-QID PRN 07/28/21 [History] Famotidine [Pepcid] 20 mg PO BID 03/18/22 [History] Dulaglutide [Trulicity] 1.5 mg SQ TH 04/01/22 [History] Insulin Aspart (Niacinamide) [Fiasp 100 Unit/ml Flextouch Pen] 25 units SQ BID 04/01/22 [History] Insulin Glargine,Hum.rec.anlog [Basaglar Kwikpen U-100] 75 units SQ HS 04/01/22 [History] Topiramate [Topamax] 25 mg PO HS 04/01/22 [History] Acetaminophen [Tylenol] 650 mg PO QID PRN 04/22/22 [History] Albuterol Sulfate [Albuterol Sulfate Hfa] 1 - 2 puff INHALATION RT-Q4H PRN 04/22/22 [History] Dicyclomine 10mg/5ml Oral Solution 10 mg PO TID 07/06/22 [History] Isosorbide Mononitrate ER [Imdur] 30 mg PO DAILY 07/06/22 [History] Lactulose [Cephulac] 20 gm PO DAILY 10/15/22 [History] traMADol HCL 50 mg PO Q6H 10/15/22 [History] Nitroglycerin Sl Tabs [Nitrostat] 0.4 mg SL Q5M PRN 10/20/22 [History] metFORMIN HCL [Glucophage] 1,000 mg PO BID 10/20/22 [History] Furosemide [Lasix] 40 mg PO DAILY #30 tablet 10/29/22 [Rx] methylPREDNISolone Dose Pack [Medrol Dose Pack] 4 mg PO DIRECTED #1 packet 10/29/22 [Rx] Losartan [Cozaar] 12.5 mg PO DAILY tab 10/30/22 [Rx] Metoprolol Tartrate [Lopressor] 12.5 mg PO BID #60 tablet 11/05/22 [Rx] Follow up Appointment(s)/Referral(s): Connor Nicholson MD [Primary Care Provider] - 1-2 days Discharge Disposition: HOME WITH HOME HEALTH SERVICES
== END 2022-11-05 17:35 | disposition home health service (06) ==
LOC: EC 10:31 → 6NMEDSUR 15:35
PROVIDERS: ADMIT Student in an Organized Health Care Education/Training Program; ATTEND Student in an Organized Health Care Education/Training Program
DX: I11.0 Hypertensive heart disease with heart failure (principal); I50.23 Acute on chronic systolic (congestive) heart failure; E87.5 Hyperkalemia; I45.2 Bifascicular block; I95.9 Hypotension, unspecified; J96.91 Respiratory failure, unspecified with hypoxia; I43 Cardiomyopathy in diseases classified elsewhere; F20.9 Schizophrenia, unspecified; I25.10 Atherosclerotic heart disease of native coronary artery without angina pectoris; K21.9 Gastro-esophageal reflux disease without esophagitis; E78.5 Hyperlipidemia, unspecified; E11.9 Type 2 diabetes mellitus without complications; F03.90 Unspecified dementia, unspecified severity, without behavioral disturbance, psychotic disturbance, mood disturbance, and anxiety; M19.90 Unspecified osteoarthritis, unspecified site; H91.90 Unspecified hearing loss, unspecified ear; D64.9 Anemia, unspecified; Z91.148 Patient's other noncompliance with medication regimen for other reason; I25.2 Old myocardial infarction; Z99.81 Dependence on supplemental oxygen; Z79.02 Long term (current) use of antithrombotics/antiplatelets; Z79.82 Long term (current) use of aspirin; Z79.4 Long term (current) use of insulin; Z79.84 Long term (current) use of oral hypoglycemic drugs; Z79.899 Other long term (current) drug therapy; Z88.8 Allergy status to other drugs, medicaments and biological substances; Z87.01 Personal history of pneumonia (recurrent); Z85.841 Personal history of malignant neoplasm of brain; Z95.1 Presence of aortocoronary bypass graft; Z87.2 Personal history of diseases of the skin and subcutaneous tissue; Z90.49 Acquired absence of other specified parts of digestive tract; Z98.49 Cataract extraction status, unspecified eye; Z89.431 Acquired absence of right foot; Z98.52 Vasectomy status; Z82.49 Family history of ischemic heart disease and other diseases of the circulatory system
CPT/HCPCS: 96374; 99285; 36415; 94640; 94760; 93005; 83880; 80053; 83605; 84484; 85025; 85610; 85730; 71046; G0378 ×2; J1940

== ENCOUNTER 2023-01-19 15:30 | Observation (INO) | payer OTHER ==
[2023-01-19 17:37] LABS: Glucose,Whole Blood 116 mg/dL (70-110)
[2023-01-19] MEDS ORDERED: DEXTROSE 50% SYRINGE 50 ML IVP PRN ×2 (18:23)
[2023-01-19] MEDS ORDERED: NITROGLYCERIN SL TABS 0.4 MG TAB SUBLINGUAL PRN (18:26)
[2023-01-19] MEDS ORDERED: IPRATROPIUM-ALBUTEROL 3 ML NEB INHALATION PRN (18:26)
[2023-01-19] MEDS ORDERED: ACETAMINOPHEN TAB 325 MG TAB PO PRN (18:26)
[2023-01-19] MEDS ORDERED: ALBUTEROL NEBULIZED 2.5 MG/3 ML INHALATION PRN (18:26)
[2023-01-19] MEDS: FAMOTIDINE 20 MG TAB PO SCH (19:40)
[2023-01-19] MEDS: DICYCLOMINE 10 MG CAP PO SCH (19:40)
[2023-01-19] MEDS: ATORVASTATIN 80 MG TAB PO SCH (19:40)
[2023-01-19] MEDS: METOPROLOL TARTRATE 12.5 MG TAB PO SCH (19:40)
[2023-01-19] MEDS: SUCRALFATE 1 GM TAB PO SCH (19:40)
[2023-01-19] MEDS: TOPIRAMATE 25 MG TAB PO SCH (19:40)
[2023-01-19 21:25] LABS: Glucose,Whole Blood 124 mg/dL (70-110)
[2023-01-19] MEDS: INSULIN ASPART (NovoLOG) 100 UNIT/ML VIAL SQ SCH ×2 (21:35→21:36)
[2023-01-19] MEDS: INSULIN DETEMIR (LEVEMIR) 100 UNIT/ML SYR SQ SCH (22:08)
[2023-01-20 06:12] LABS: Glucose,Whole Blood 123 mg/dL (70-110)
[2023-01-20] MEDS: INSULIN ASPART (NovoLOG) 100 UNIT/ML VIAL SQ SCH ×6 (06:13→21:22)
[2023-01-20] MEDS: FAMOTIDINE 20 MG TAB PO SCH ×2 (08:46→21:21)
[2023-01-20] MEDS: ASPIRIN 81 MG PO SCH (08:46)
[2023-01-20] MEDS: METOPROLOL TARTRATE 12.5 MG TAB PO SCH ×2 (08:46→21:21)
[2023-01-20] MEDS: SUCRALFATE 1 GM TAB PO SCH ×4 (08:46→21:21)
[2023-01-20] MEDS: CLOPIDOGREL 75 MG TAB PO SCH (08:46)
[2023-01-20] MEDS: FERROUS SULFATE 325 MG TAB PO SCH (08:46)
[2023-01-20] MEDS: ISOSORBIDE MONONITRATE ER 30 MG TAB.ER.24H PO SCH (08:46)
[2023-01-20] MEDS: FUROSEMIDE 40 MG TAB PO SCH (08:47)
[2023-01-20] MEDS: LACTULOSE 20 GM/30 ML CUP PO SCH (08:47)
[2023-01-20] MEDS: DICYCLOMINE 10 MG CAP PO SCH ×3 (09:07→21:48)
[2023-01-20] MEDS ORDERED: HEPARIN SODIUM 1,000 UN/ML (10ML VL) ONE (10:15)
[2023-01-20] MEDS ORDERED: niCARdipine 25 MG/10 ML VIAL ONE (10:22)
[2023-01-20] MEDS ORDERED: MIDAZOLAM 2 MG/2 ML VIAL IVP ONE ×2 (10:35→11:07)
[2023-01-20] MEDS ORDERED: LIDOCAINE 1% INJ 10MG/ML (20 ML MDV) SQ ONE (10:37)
[2023-01-20] MEDS ORDERED: fentaNYL (PF) 50 MCG/ML 2 ML AMP ONE (10:45)
[2023-01-20] MEDS ORDERED: fentaNYL (PF) 50 MCG/1 ML VIAL IVP ONE (10:48)
[2023-01-20] MEDS ORDERED: IV FLUID CONTINUATION 1,000 ML IV ONE (10:48)
[2023-01-20] MEDS ORDERED: HEPARIN SODIUM 1,000 UN/ML (10ML VL) IV ONE (11:00)
[2023-01-20 11:22] LABS: Basophils % (A) 0 %; Eosinophils # (A) 0.1 k/uL (0-0.7); Eosinophils % (A) 2 %; HCT 33.2 % (39.0-53.0); HGB 11.2 gm/dL (13.0-17.5); Lymphocytes # (A) 0.9 k/uL (1.0-4.8); Lymphocytes % (A) 19 %; MCH 31.4 pg (25.0-35.0); MCHC 33.6 g/dL (31.0-37.0); MCV 93.5 fL (80.0-100.0); Mean Platelet Volume 8.2; Monocytes # (A) 0.1 k/uL (0-1.0); Monocytes % (A) 1 %; Neutrophils # (A) 3.8 k/uL (1.3-7.7); Neutrophils % (A) 77 %; Platelet Count 139 k/uL (150-450); RBC 3.56 m/uL (4.30-5.90); RDW 13.8 % (11.5-15.5); WBC 4.9 k/uL (3.8-10.6)
[2023-01-20 11:34] LABS: ALT 24 U/L (4-49); AST 25 U/L (17-59); African American GFR (CKD) 86 (>60 ml/min/1.73 sqM); Albumin/Globulin Ratio 1.1; Alkaline Phosphatase 81 U/L (38-126); Anion Gap 6 mmol/L; Blood Urea Nitrogen 36 mg/dL (9-20); Calcium 8.2 mg/dL (8.4-10.2); Carbon Dioxide 22 mmol/L (22-30); Chloride 107 mmol/L (98-107); Globulin 2.7 g/dL; Glucose 144 mg/dL (74-99); Non-African American GFR(CKD) 75 (>60 ml/min/1.73 sqM); Potassium 4.2 mmol/L (3.5-5.1); Sodium 135 mmol/L (137-145); Total Bilirubin 0.9 mg/dL (0.2-1.3); Total Protein 5.7 g/dL (6.3-8.2)
[2023-01-20] MEDS ORDERED: niCARdipine Syringe (1,000 mcg/10 mL) INTRAARTER ONE (11:37)
[2023-01-20] MEDS ORDERED: IOPAMIDOL-250 100ML BTL INTRAARTER ONE (11:51)
[2023-01-20] MEDS ORDERED: SODIUM CHLORIDE 0.9% 1,000 ML IV SCH (11:56)
--- NOTE | 2023-01-20 12:17 | IR ---
EXAMINATION TYPE: IR mud analysis well logging captain femoral popliteal DATE OF EXAM: 01/20/2023 COMPARISON: NONE HISTORY: Fluoroscopy time. Fluoroscopy was provided to the referring clinician.
[2023-01-20 17:17] LABS: Glucose,Whole Blood 162 mg/dL (70-110)
[2023-01-20 20:43] LABS: Glucose,Whole Blood 160 mg/dL (70-110)
[2023-01-20] MEDS: INSULIN DETEMIR (LEVEMIR) 100 UNIT/ML SYR SQ SCH (21:21)
[2023-01-20] MEDS: TOPIRAMATE 25 MG TAB PO SCH (21:21)
[2023-01-20] MEDS: ATORVASTATIN 80 MG TAB PO SCH (21:21)
[2023-01-21 06:34] LABS: Glucose,Whole Blood 183 mg/dL (70-110)
[2023-01-21] MEDS: INSULIN ASPART (NovoLOG) 100 UNIT/ML VIAL SQ SCH ×6 (08:31→21:44)
[2023-01-21] MEDS: LACTULOSE 20 GM/30 ML CUP PO SCH (08:31)
[2023-01-21] MEDS: SUCRALFATE 1 GM TAB PO SCH ×4 (08:32→21:42)
[2023-01-21] MEDS: FERROUS SULFATE 325 MG TAB PO SCH (08:32)
[2023-01-21] MEDS: CLOPIDOGREL 75 MG TAB PO SCH (08:32)
[2023-01-21] MEDS: DICYCLOMINE 10 MG CAP PO SCH ×3 (08:32→21:43)
[2023-01-21] MEDS: ISOSORBIDE MONONITRATE ER 30 MG TAB.ER.24H PO SCH (08:32)
[2023-01-21] MEDS: FAMOTIDINE 20 MG TAB PO SCH ×2 (08:32→21:43)
[2023-01-21] MEDS: FUROSEMIDE 40 MG TAB PO SCH (08:32)
[2023-01-21] MEDS: ASPIRIN 81 MG PO SCH (08:32)
[2023-01-21] MEDS: METOPROLOL TARTRATE 12.5 MG TAB PO SCH ×2 (08:32→21:42)
--- NOTE | 2023-01-21 09:13 | P.PCN ---
Date of Procedure: 01/20/23 Operative Findings: PERCUTANEOUS PERIPHERAL INTERVENTION Performing physician John Flores M.D. Procedure performed 1. Successful balloon angioplasty of the left SFA using 6 mm x 40 mm DCB 2 with an excellent angiographic results 2. And adjunctive use of intravascular ultrasound as well as atherectomy 3. Left lower extremity angiogram and the right lower extremity angiogram 4. Ultrasound guided access of the right common femoral artery Indication Left lower extremity intermittent claudication in this 67-year-old gentleman who has tight lesion involving the left SFA an intermediate lesion involving the left popliteal Approach Right common femoral artery Complications None Level of sedation Moderate with a sedation time of 67 minutes Procedure description After obtaining an informed consent the patient was brought to the cardiac landscaping and groundskeeping laborer. The right common femoral artery was cannulated using micropuncture technique under ultrasound guidance the micropuncture wire passed easily then I placed a 6-[place] 11 cm sheath at the right common femoral artery which was subsequently exchange into a 6-South African 55 cm Anesl sheath. I did use that sheath because the aortic bifurcation is extremely acute. Subsequently I did selective left SFA using 035 stiff Glidewire with a backup support of 5-South African rim catheter. Attempting advancing the long sheath over the wire and the catheter was on successful. Subsequently I was able to exchange my 035 stiff Glidewire into regular 035 Glidewire. After that I did exchange the regular wire into a 35 stiff Glidewire using an 035 CXI catheter. I did and I was able to advance a 6-South African sheath over the stiff Glidewire and the sheath dilator to the left common femoral artery after I struggle at the iliac. I did left iliac angiogram and that showed no high-grade stenosis. Finally I was able to get the sheath to the left common femoral artery. After that I did left lower extremity angiogram which showed one vessel run off below the knee with anterior tibial and intermediate lesion involving the left popliteal and severe lesions involving the SFA in the mid and proximal portions. I did intravascular ultrasound and that showed that the lesion in the left popliteal was not flow-limiting. The SFA diameter was about 6 mm. Atherectomy was performed using the Hawk 1 device. Subsequently I did balloon angioplasty using 6 mm chocolate balloon and subsequently 6 mm DCB. Final angiogram showed excellent angiographic results. After that I did right lower extremity angiogram after I did exchanged the long sheath into short sheath using 035 stiff Glidewire. I did the right lower extremity angiogram because the patient was experiencing pain in the right leg. And that showed that the SFA and popliteal patent with below the knee angiogram similar to before. The procedure was completed was no complication Postprocedure management 1. Dual antiplatelet therapy 2. Aggressive cholesterol control 3. Risk factors modification 4. Follow-up with the patient
[2023-01-21 12:09] LABS: Glucose,Whole Blood 79 mg/dL (70-110)
[2023-01-21 16:59] LABS: Glucose,Whole Blood 118 mg/dL (70-110)
[2023-01-21] MEDS ORDERED: NON FORMULARY DRUG (Dulaglutide [Trulicity] 1.5 MG/0.5 ML Each) SQ SCH (18:26)
[2023-01-21 20:33] LABS: Glucose,Whole Blood 155 mg/dL (70-110)
[2023-01-21] MEDS: INSULIN DETEMIR (LEVEMIR) 100 UNIT/ML SYR SQ SCH (21:43)
[2023-01-21] MEDS: ATORVASTATIN 80 MG TAB PO SCH (21:43)
[2023-01-21] MEDS: TOPIRAMATE 25 MG TAB PO SCH (21:43)
[2023-01-22 06:21] LABS: Glucose,Whole Blood 154 mg/dL (70-110)
--- NOTE | 2023-01-22 08:14 | P.DS ---
Providers Date of admission: 01/19/23 16:09 Attending physician: John Flores Primary care physician: Stated None Hospital Course: The patient is a 67-year-old was the hospital the patient before yesterday and underwent successful balloon angioplasty of the left SFA with a good angiographic results and no complication. The patient was seen and evaluated this morning. He is asymptomatic and he is hemodynamically stable. The right groin was soft and nontender with no bruises. The patient is going to be discharged home on dual antiplatelet therapy along statin and I will follow-up with the patient in the next one to 2 weeks in the office. Plan - Discharge Summary New Discharge Prescriptions: Continue Atorvastatin [Lipitor] 80 mg PO HS@2000 Aspirin EC [Ecotrin Low Dose] 81 mg PO DAILY@0800 Ipratropium-Albuterol Nebulize [Duoneb 0.5 mg-3 mg/3 ml Soln] 3 ml INHALATION RT-QID PRN PRN Reason: Shortness Of Breath Clopidogrel Bisulfate [Plavix] 75 mg PO DAILY@0800 Famotidine [Pepcid] 20 mg PO BID@0800,1999 Insulin Aspart (Niacinamide) [Fiasp 100 Unit/ml Flextouch Pen] 25 units SQ BID Dulaglutide [Trulicity] 1.5 mg SQ TH Acetaminophen [Tylenol] 650 mg PO QID PRN PRN Reason: Fever And/ Or Pain Albuterol Sulfate [Albuterol Sulfate Hfa] 1 - 2 puff INHALATION RT-Q4H PRN PRN Reason: Shortness Of Breath Isosorbide Mononitrate ER [Imdur] 30 mg PO DAILY@0800 traMADol HCL 50 mg PO Q6H Metoprolol Tartrate [Lopressor] 12.5 mg PO BID@0800,1999 Ferrous Sulfate [Iron (65 MG Elemental)] 325 mg PO DAILY@0800 Topiramate [Topamax] 25 mg PO HS@2000 Insulin Glargine,Hum.rec.anlog [Basaglar Kwikpen U-100] 75 units SQ HS Dicyclomine 10mg/5ml Oral Solution 10 mg PO TID@0800,1700,1999 Lactulose [Cephulac] 20 gm PO DAILY@0800 Nitroglycerin Sl Tabs [Nitrostat] 0.4 mg SL Q5M PRN PRN Reason: Chest Pain Sucralfate [Sucralfate Oral Susp] 1 gm PO ACHS@08,12,, Furosemide [Lasix] 40 mg PO DAILY@0800 Discontinued metFORMIN HCL [Glucophage] 500 mg PO BID Discharge Medication List Aspirin EC [Ecotrin Low Dose] 81 mg PO DAILY@0800 01/12/19 [History] Atorvastatin [Lipitor] 80 mg PO HS@199901/12/19 [History] Clopidogrel Bisulfate [Plavix] 75 mg PO DAILY@0807/28/21 [History] Ferrous Sulfate [Iron (65 MG Elemental)] 325 mg PO DAILY@79907/28/21 [History] Ipratropium-Albuterol Nebulize [Duoneb 0.5 mg-3 mg/3 ml Soln] 3 ml INHALATION RT-QID PRN 07/28/21 [History] Famotidine [Pepcid] 20 mg PO BID@0800,199903/18/22 [History] Dulaglutide [Trulicity] 1.5 mg SQ TH 04/01/22 [History] Insulin Aspart (Niacinamide) [Fiasp 100 Unit/ml Flextouch Pen] 25 units SQ BID 04/01/22 [History] Insulin Glargine,Hum.rec.anlog [Basaglar Kwikpen U-100] 75 units SQ HS 04/01/22 [History] Topiramate [Topamax] 25 mg PO HS@199904/01/22 [History] Acetaminophen [Tylenol] 650 mg PO QID PRN 04/22/22 [History] Albuterol Sulfate [Albuterol Sulfate Hfa] 1 - 2 puff INHALATION RT-Q4H PRN 04/22/22 [History] Dicyclomine 10mg/5ml Oral Solution 10 mg PO TID@0800,1700,199907/06/22 [History] Isosorbide Mononitrate ER [Imdur] 30 mg PO DAILY@0800 07/06/22 [History] Lactulose [Cephulac] 20 gm PO DAILY@0800 10/15/22 [History] traMADol HCL 50 mg PO Q6H 10/15/22 [History] Nitroglycerin Sl Tabs [Nitrostat] 0.4 mg SL Q5M PRN 10/20/22 [History] Furosemide [Lasix] 40 mg PO DAILY@0800 12/08/22 [History] Metoprolol Tartrate [Lopressor] 12.5 mg PO BID@799,199912/08/22 [History] Sucralfate [Sucralfate Oral Susp] 1 gm PO ACHS@08,12,17,20 12/08/22 [History] Follow up Appointment(s)/Referral(s): John Flores MD [STAFF PHYSICIAN] - 2 Weeks
[2023-01-22 08:54] VITALS: BP 147/75; PULSE 88; RESP 20; TEMP 98
[2023-01-22] MEDS: DICYCLOMINE 10 MG CAP PO SCH (09:08)
[2023-01-22] MEDS: ASPIRIN 81 MG PO SCH (09:08)
[2023-01-22] MEDS: INSULIN ASPART (NovoLOG) 100 UNIT/ML VIAL SQ SCH ×3 (09:08→13:05)
[2023-01-22] MEDS: LACTULOSE 20 GM/30 ML CUP PO SCH (09:09)
[2023-01-22] MEDS: ISOSORBIDE MONONITRATE ER 30 MG TAB.ER.24H PO SCH (09:09)
[2023-01-22] MEDS: FERROUS SULFATE 325 MG TAB PO SCH (09:09)
[2023-01-22] MEDS: FAMOTIDINE 20 MG TAB PO SCH (09:09)
[2023-01-22] MEDS: METOPROLOL TARTRATE 12.5 MG TAB PO SCH (09:09)
[2023-01-22] MEDS: SUCRALFATE 1 GM TAB PO SCH ×2 (09:09→13:54)
[2023-01-22] MEDS: CLOPIDOGREL 75 MG TAB PO SCH (09:09)
[2023-01-22] MEDS: FUROSEMIDE 40 MG TAB PO SCH (09:09)
[2023-01-22 12:14] LABS: Glucose,Whole Blood 127 mg/dL (70-110)
== END 2023-01-22 14:57 | disposition home or self-care (01) ==
LOC: 6NMEDSUR 16:09
PROVIDERS: ADMIT Internal Medicine Interventional Cardiology; ATTEND Internal Medicine Interventional Cardiology
DX: I73.9 Peripheral vascular disease, unspecified (principal)
CPT/HCPCS: 96372 ×4; 37225; 76937; 37252; 80053; 85025; G0379; G0378 ×4; C1769 ×5; C1894 ×2; C1714; C1753; C2623 ×2; C1725; J2250; J2001; J1644; Q9966; J3010

== ENCOUNTER 2023-02-01 11:56 | Observation (INO) | payer OTHER ==
[2023-02-01 12:44] LABS: Basophils % (A) 0 %; Eosinophils # (A) 0.3 k/uL (0-0.7); Eosinophils % (A) 3 %; HCT 34.4 % (39.0-53.0); HGB 11.3 gm/dL (13.0-17.5); Lymphocytes # (A) 1.1 k/uL (1.0-4.8); Lymphocytes % (A) 12 %; MCHC 32.9 g/dL (31.0-37.0); Monocytes # (A) 0.4 k/uL (0-1.0); Monocytes % (A) 4 %; Neutrophils # (A) 7.2 k/uL (1.3-7.7); Neutrophils % (A) 79 %; Platelet Count 258 k/uL (150-450); RBC 3.66 m/uL (4.30-5.90); RDW 13.8 % (11.5-15.5); WBC 9.1 k/uL (3.8-10.6)
[2023-02-01 12:56] LABS: ALT 24 U/L (4-49); AST 25 U/L (17-59); African American GFR (CKD) 80 (>60 ml/min/1.73 sqM); Albumin 3.4 g/dL (3.5-5.0); Alkaline Phosphatase 72 U/L (38-126); Anion Gap 9 mmol/L; Blood Urea Nitrogen 30 mg/dL (9-20); Calcium 8.6 mg/dL (8.4-10.2); Carbon Dioxide 26 mmol/L (22-30); Chloride 104 mmol/L (98-107); Glucose 152 mg/dL (74-99); Magnesium 1.9 mg/dL (1.6-2.3); Non-African American GFR(CKD) 70 (>60 ml/min/1.73 sqM); Potassium 4.7 mmol/L (3.5-5.1); Sodium 139 mmol/L (137-145); Total Bilirubin 0.8 mg/dL (0.2-1.3); Total Protein 6.2 g/dL (6.3-8.2)
[2023-02-01 13:01] LABS: INR 0.9 (<1.2); Partial Thromboplastin Time 22.2 sec (22.0-30.0); Prothrombin Time 10.5 sec (10.0-12.5)
[2023-02-01 13:04] LABS: NT-Pro-B-Type Natriuretic Pept 4090 pg/mL
--- NOTE | 2023-02-01 13:31 | ED ---
General Adult HPI - General Chief complaint: Extremity Problem,Nontraumatic Stated complaint: retaining water Time Seen by Provider: 02/01/23 13:11 Source: patient, RN notes reviewed Mode of arrival: ambulatory Limitations: no limitations - History of Present Illness Initial comments: Patient is a pleasant 67-year-old male presenting to the emergency department with concerns with leg edema. Symptoms have been present over the past week. Patient does have history of similar symptoms previously however not as bad. Patient states his doctor sent him in for evaluation. No chest pain. Patient does have some dyspnea however this is chronic and unchanged. No calf pain. - Related Data Home Medications Medication Instructions Recorded Confirmed Aspirin EC [Ecotrin Low Dose] 81 mg PO DAILY@0800 01/12/19 02/01/23 Atorvastatin [Lipitor] 80 mg PO HS@199901/12/19 02/01/23 Clopidogrel Bisulfate [Plavix] 75 mg PO DAILY@0800 07/28/21 02/01/23 Ferrous Sulfate [Iron (65 MG 325 mg PO DAILY@0800 07/28/21 02/01/23 Elemental)] Ipratropium-Albuterol Nebulize 3 ml INHALATION RT-QID PRN 07/28/21 02/01/23 [Duoneb 0.5 mg-3 mg/3 ml Soln] Famotidine [Pepcid] 20 mg PO BID@0800,199903/18/22 02/01/23 Dulaglutide [Trulicity] 1.5 mg SQ TH 04/01/22 02/01/23 Insulin Aspart (Niacinamide) 25 units SQ BID 04/01/22 02/01/23 [Fiasp 100 Unit/ml Flextouch Pen] Insulin Glargine,Hum.rec.anlog 75 units SQ HS 04/01/22 02/01/23 [Basaglar Kwikpen U-100] Topiramate [Topamax] 25 mg PO HS@199904/01/22 02/01/23 Acetaminophen [Tylenol] 650 mg PO QID PRN 04/22/22 02/01/23 Albuterol Sulfate [Albuterol 1 - 2 puff INHALATION RT-Q4H PRN 04/22/22 02/01/23 Sulfate Hfa] Dicyclomine 10mg/5ml Oral Solution 10 mg PO TID@0800,1700,199907/06/22 02/01/23 Isosorbide Mononitrate ER [Imdur] 30 mg PO DAILY@0800 07/06/22 02/01/23 Lactulose [Cephulac] 20 gm PO DAILY@0800 10/15/22 02/01/23 traMADol HCL 50 mg PO Q6H 10/15/22 02/01/23 Nitroglycerin Sl Tabs [Nitrostat] 0.4 mg SL Q5M PRN 10/20/22 02/01/23 Furosemide [Lasix] 40 mg PO DAILY@0800 12/08/22 02/01/23 Metoprolol Tartrate [Lopressor] 12.5 mg PO BID@08,199912/08/22 02/01/23 Sucralfate [Sucralfate Oral Susp] 1 gm PO ACHS@08,12,17,20 12/08/22 02/01/23 Collagenase [Santyl Ointment] 1 applic TOPICAL DAILY 02/01/23 02/01/23 Allergies Allergy/AdvReac Type Severity Reaction Status Date / Time furosemide [From Lasix] AdvReac Unknown Verified 02/01/23 14:42 sacubitril [From Entresto] AdvReac made him Verified 02/01/23 14:42 hypotensive valsartan [From Entresto] AdvReac made him Verified 02/01/23 14:42 hypotensive Review of Systems ROS Statement: Those systems with pertinent positive or pertinent negative responses have been documented in the HPI. ROS Other: All systems not noted in ROS Statement are negative. Constitutional: Denies: fever Eyes: Denies: eye pain ENT: Denies: ear pain Respiratory: Reports: as per HPI Cardiovascular: Reports: as per HPI, edema. Denies: chest pain Endocrine: Denies: fatigue Gastrointestinal: Denies: abdominal pain Genitourinary: Denies: dysuria Musculoskeletal: Denies: back pain Skin: Denies: rash Neurological: Denies: weakness Past Medical History Past Medical History: Cancer, Heart Failure, Dementia, Diabetes Mellitus, GERD/Reflux, Hearing Disorder / Deafness, Hyperlipidemia, Hypertension, Myocardial Infarction ([place]), Osteoarthritis (OA), Pneumonia Additional Past Medical History / Comment(s): Brain CA (30 years ago) in remission. 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 Mother Additional Family Medical History / Comment(s): Mother had a bad heart. General Exam Limitations: no limitations General appearance: alert, in no apparent distress Head exam: Present: normocephalic Eye exam: Present: normal appearance Neck exam: Present: normal inspection Respiratory exam: Present: normal lung sounds bilaterally Cardiovascular Exam: Present: regular rate, normal rhythm GI/Abdominal exam: Present: soft. Absent: tenderness Extremities exam: Present: pedal edema. Absent: calf tenderness Neurological exam: Present: alert Psychiatric exam: Present: normal affect, normal mood Skin exam: Present: normal color Course Vital Signs 02/01/23 02/01/23 12:07 13:18 Temperature 98.5 F Pulse Rate 73 93 Respiratory 24 22 Rate Blood Pressure 98/64 127/73 O2 Sat by Pulse 95 98 Oximetry Procedures - [place] Protocol (Time Out) Nurse: Liza Klein Medical Decision Making - Medical Decision Making Was pt. sent in by a medical professional or institution (, PA, COT[employer] WEIGHER, urgent care, hospital, or prison...) When possible be specific @ -Patient was sent by Dr. Zurita Did you speak to anyone other than the patient for history (EMS, parent, family, police, friend...)? What history was obtained from this source @ -No Did you review nursing and triage notes (agree or disagree)? Why? @ -I reviewed and agree with nursing and triage notes Were old charts reviewed (outside hosp., previous admission, EMS record, old EKG, old radiological studies, urgent care reports/EKG's, prison records)? Report findings @ -No old charts were reviewed Differential Diagnosis (chest pain, altered mental status, abdominal pain women, abdominal pain men, vaginal bleeding, weakness, fever, dyspnea, syncope, headache, dizziness, GI bleed, back pain, seizure, CVA, palpatations, mental health, musculoskeletal)? @ -Differential Dyspnea: Coronary syndrome, arrhythmia, tamponade, asthma, COPD, pulmonary embolism, pneumonia, pneumothorax, pulmonary effusion, anaphylaxis, diabetic ketoacidosis, flailed chest, pulmonary contusion, diaphragmatic rupture, anemia, neuromuscular, this is not meant to be an all-inclusive list. EKG interpreted by me (3pts min.). @ -As above X-rays interpreted by me (1pt min.). @ -Chest x-ray without obvious abnormality. There may be mild interstitial prominence. CT interpreted by me (1pt min.). @ -None done U/S interpreted by me (1pt. min.). @ -None done What testing was considered but not performed or refused? (CT, X-rays, U/S, labs)? Why? @ -None What meds were considered but not given or refused? Why? @ -None Did you discuss the management of the patient with other professionals (professionals i.e. , PA, C[employer] WEIGHER, lab, RT, psych nurse, social media community manager, mining and quarrying machinery repairer, teacher, staff air defense officer, patient case coordinator)? Give summary @ -Case was discussed with Dr. Simpson, who will admit for Was smoking cessation discussed for >3mins.? @ -No Was critical care preformed (if so, how long)? @ -No Were there social determinants of health that impacted care today? How? (Homelessness, low income, unemployed, alcoholism, drug addiction, transportation, low edu. Level, literacy, decrease access to med. care, longterm, rehab)? @ -No Was there de-escalation of care discussed even if they declined (Discuss DNR or withdrawal of care, Hospice)? DNR status @ -No What co-morbidities impacted this encounter? (DM, HTN, Smoking, COPD, CAD, Cancer, CVA, ARF, Chemo, Hep., AIDS, mental health diagnosis, sleep apnea, morbid obesity)? @ -None Was patient admitted / discharged? Hospital course, mention meds given and route, prescriptions, significant lab abnormalities, going to OR and other pertinent info. @ -Patient reevaluated and updated. Patient does have evidence of fluid overload and possible mild heart failure. Patient will be admitted for diuresis and cardiac consult Undiagnosed new problem with uncertain prognosis? @ -No Drug Therapy requiring intensive monitoring for toxicity (Heparin, Nitro, Insulin, Cardizem)? @ -No Were any procedures done? @ -No Diagnosis/symptom? @ -CHF Acute, or Chronic, or Acute on Chronic? @ -Acute Uncomplicated (without systemic symptoms) or Complicated (systemic symptoms)? @ -default Side effects of treatment? @ -No Exacerbation, Progression, or Severe Exacerbation? @ -No Poses a threat to life or bodily function? How? (Chest pain, [place], [place], pneumonia, PE, COPD, DKA, ARF, appy, cholecystitis, CVA, Diverticulitis, Homicidal, Suicidal, threat to staff... and all critical care pts) @ -No - Lab Data Result diagrams: 02/01/23 12:17 02/01/23 12:17 Lab Results 02/01/23 02/01/23 02/01/23 Range/Units 12:17 12:17 12:17 WBC 9.1 (3.8-10.6) k/uL RBC 3.66 L (4.30-5.90) m/uL Hgb 11.3 L (13.0-17.5) gm/dL Hct 34.4 L (39.0-53.0) % MCV 94.0 (80.0-100.0) fL MCH 31.0 (25.0-35.0) pg MCHC 32.9 (31.0-37.0) g/dL RDW 13.8 (11.5-15.5) % Plt Count 258 (150-450) k/uL MPV 8.0 Neutrophils % 79 % Lymphocytes % 12 % Monocytes % 4 % Eosinophils % 3 % Basophils % 0 % Neutrophils # 7.2 (1.3-7.7) k/uL Lymphocytes # 1.1 (1.0-4.8) k/uL Monocytes # 0.4 (0-1.0) k/uL Eosinophils # 0.3 (0-0.7) k/uL Basophils # 0.0 (0-0.2) k/uL PT 10.5 (10.0-12.5) sec INR 0.9 (<1.2) APTT 22.2 (22.0-30.0) sec Sodium 139 (137-145) mmol/L Potassium 4.7 (3.5-5.1) mmol/L Chloride 104 (98-107) mmol/L Carbon Dioxide 26 (22-30) mmol/L Anion Gap 9 mmol/L BUN 30 H (9-20) mg/dL Creatinine 1.11 (0.66-1.25) mg/dL Est GFR (CKD-EPI)AfAm 80 (>60 ml/min/1.73 sqM) Est GFR (CKD-EPI)NonAf 70 (>60 ml/min/1.73 sqM) Glucose 152 H (74-99) mg/dL Calcium 8.6 (8.4-10.2) mg/dL Magnesium 1.9 (1.6-2.3) mg/dL Total Bilirubin 0.8 (0.2-1.3) mg/dL AST 25 (17-59) U/L ALT 24 (4-49) U/L Alkaline Phosphatase 72 (38-126) U/L Troponin I (0.000-0.034) ng/mL NT-Pro-B Natriuret Pep 4090 pg/mL Total Protein 6.2 L (6.3-8.2) g/dL Albumin 3.4 L (3.5-5.0) g/dL 02/01/23 Range/Units 12:17 WBC (3.8-10.6) k/uL RBC (4.30-5.90) m/uL Hgb (13.0-17.5) gm/dL Hct (39.0-53.0) % MCV (80.0-100.0) fL MCH (25.0-35.0) pg MCHC (31.0-37.0) g/dL RDW (11.5-15.5) % Plt Count (150-450) k/uL MPV Neutrophils % % Lymphocytes % % Monocytes % % Eosinophils % % Basophils % % Neutrophils # (1.3-7.7) k/uL Lymphocytes # (1.0-4.8) k/uL Monocytes # (0-1.0) k/uL Eosinophils # (0-0.7) k/uL Basophils # (0-0.2) k/uL PT (10.0-12.5) sec INR (<1.2) APTT (22.0-30.0) sec Sodium (137-145) mmol/L Potassium (3.5-5.1) mmol/L Chloride (98-107) mmol/L Carbon Dioxide (22-30) mmol/L Anion Gap mmol/L BUN (9-20) mg/dL Creatinine (0.66-1.25) mg/dL Est GFR (CKD-EPI)AfAm (>60 ml/min/1.73 sqM) Est GFR (CKD-EPI)NonAf (>60 ml/min/1.73 sqM) Glucose (74-99) mg/dL Calcium (8.4-10.2) mg/dL Magnesium (1.6-2.3) mg/dL Total Bilirubin (0.2-1.3) mg/dL AST (17-59) U/L ALT (4-49) U/L Alkaline Phosphatase (38-126) U/L Troponin I 0.045 H* (0.000-0.034) ng/mL NT-Pro-B Natriuret Pep pg/mL Total Protein (6.3-8.2) g/dL Albumin (3.5-5.0) g/dL Disposition Clinical Impression: Acute exacerbation of CHF (congestive heart failure) Disposition: ADMITTED IP TO THIS HOSP Is patient prescribed a controlled substance at d/c from ED?: No Referrals: Connor Nicholson MD [Primary Care Provider] - 1-2 days Time of Disposition: 14:55
--- NOTE | 2023-02-01 13:51 | XR ---
EXAMINATION TYPE: XR chest 2V DATE OF EXAM: 02/01/2023 1:47 PM COMPARISON: Chest radiographs from 11/04/2022 TECHNIQUE: XR chest 2V Frontal and lateral views of the chest. CLINICAL INDICATION:Male, 67 years old with history of MESERET; FINDINGS: Lungs/Pleura: No pleural effusion or pneumothorax. No focal consolidation Pulmonary vascularity: Unremarkable. Heart/mediastinum: Cardiomediastinal silhouette is unremarkable. Musculoskeletal: Multiple level degenerative disc disease changes seen throughout the spine. IMPRESSION: No acute cardiopulmonary disease/process.
[2023-02-01] MEDS ORDERED: ASPIRIN 325 MG TAB PO STA (14:55)
[2023-02-01] MEDS ORDERED: ACETAMINOPHEN TAB 325 MG TAB PO PRN (15:43)
[2023-02-01] MEDS ORDERED: ALBUTEROL HFA INHALER INHALATION PRN (16:23)
[2023-02-01] MEDS ORDERED: DEXTROSE 50% SYRINGE 50 ML IVP PRN ×2 (16:24)
--- NOTE | 2023-02-01 16:28 | P.HPIM ---
History of Present Illness H&P Date: 02/01/23 Patient is a 67-year-old male with history of CAD status post CABG presenting with worsening orthopnea and exertional dyspnea as well as lower extremity edema. He claims that over the last week or so he's been sleeping sitting up, normally ambulates with a walker but has been having more difficulty due to shortness of breath. Even at rest he is noticing increased shortness of breath. He is also having worsening lower extremity edema. He has chills all the times, but denies any fevers. He has occasional cough but nonproductive. He denies any abdominal pain, nausea, vomiting, urinary or bowel complaints. He denies any recent travel history. Patient recently underwent balloon angioplasty of left SFA on 01/19. In the ED, temperature was 98.5, pulse 73, respiratory rate 24, saturating at 95% on room air, blood pressure 98/64 improving to 127/73. WBC 9.1, hemoglobin 11.3 at baseline, sodium 139, potassium 4.7, BUN 30, creatinine 1.11, at baseline, glucose 152, troponin 0.045, proBNP 4000. Chest x-ray independently interpreted, shows no acute opacities. Patient admitted for observation for CHF exacerbation. Cardiology also consulted. Pertinent positives and negatives as discussed in HPI, a complete review of systems was performed and all other systems are negative. Patient seen and examined at bedside. Vital signs reviewed General: nontoxic, no distress, appears at stated age Derm: warm, dry Head: atraumatic, normocephalic, symmetric Eyes: EOMI, no lid lag, anicteric sclera, pupils equal round reactive to light ENT: Nose and ears atraumatic Neck: No thyromegaly, supple Mouth: no lip lesion, mucus membranes moist Cardiovascular: S1S2 reg, no murmur, no edema Lungs: clear to auscultation bilateral, no rhonchi, no rales, no wheeze, no accessory muscle use Abdominal: soft, nontender to palpation, no guarding, no appreciable organomegaly Ext: no gross muscle atrophy, muscle strength muscle strength 5 out of 5 in all 4 extremities, no contractures Neuro: CN II-XII grossly intact Psych: Alert, oriented, appropriate affect Assessment/Plan: Active: Acute on chronic systolic heart failure exacerbation, last known EF 25-30% NSTEMI, likely type II Recent left SFA balloon angioplasty History of CAD status post CABG -Continue home aspirin, statin, and Plavix -Started on 40 mg IV Lasix every 8 hours, monitor renal function and electrolytes, daily BMP -Topical nitroglycerin discontinued. -Cardiology consulted -Telemetry -Repeat troponin -Patient has no active chest pain -EKG not available for interpretation, reordered -Patient not currently on ACEi/ARB, consider starting low-dose Insulin-dependent type 2 diabetes -Resume home glargine at 75 units daily at bedtime -Started on sliding scale insulin, monitor for hypoglycemia -Holding other antidiabetic medications Chronic: Hypertension Dyslipidemia The patient is admitted with an anticipated less than 2 midnight stay as observation status for evaluation of CHF exacerbation. Surrogate decision-maker: Guardian CODE STATUS: Full code DVT prophylaxis: Subcu heparin Anticipated discharge date: Pending clinical course Anticipated discharge place: Pending clinical course A total of 65 minutes was spent on the care of this complex patient more than 50% of the time was spent in counseling and care coordination. Past Medical History Past Medical History: Cancer, Heart Failure, Dementia, Diabetes Mellitus, GERD/Reflux, Hearing Disorder / Deafness, Hyperlipidemia, Hypertension, Myocardial Infarction ([place]), Osteoarthritis ([place]), Pneumonia Additional Past Medical History / Comment(s): Brain CA (30 years ago) in remission. 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 Mother Additional Family Medical History / Comment(s): Mother had a bad heart. Medications and Allergies Home Medications Medication Instructions Recorded Confirmed Type Aspirin EC [Ecotrin Low Dose] 81 mg PO DAILY@0800 01/12/19 02/01/23 History Atorvastatin [Lipitor] 80 mg PO HS@199901/12/19 02/01/23 History Clopidogrel Bisulfate [Plavix] 75 mg PO DAILY@0800 07/28/21 02/01/23 History Ferrous Sulfate [Iron (65 MG 325 mg PO DAILY@0800 07/28/21 02/01/23 History Elemental)] Ipratropium-Albuterol Nebulize 3 ml INHALATION RT-QID PRN 07/28/21 02/01/23 History [Duoneb 0.5 mg-3 mg/3 ml Soln] Famotidine [Pepcid] 20 mg PO BID@0800,199903/18/22 02/01/23 History Dulaglutide [Trulicity] 1.5 mg SQ TH 04/01/22 02/01/23 History Insulin Aspart (Niacinamide) 25 units SQ BID 04/01/22 02/01/23 History [Fiasp 100 Unit/ml Flextouch Pen] Insulin Glargine,Hum.rec.anlog 75 units SQ HS 04/01/22 02/01/23 History [Basaglar Kwikpen U-100] Topiramate [Topamax] 25 mg PO HS@199904/01/22 02/01/23 History Acetaminophen [Tylenol] 650 mg PO QID PRN 04/22/22 02/01/23 History Albuterol Sulfate [Albuterol 1 - 2 puff INHALATION RT-Q4H PRN 04/22/22 02/01/23 History Sulfate Hfa] Dicyclomine 10mg/5ml Oral Solution 10 mg PO TID@0800,1700,199907/06/22 02/01/23 History Isosorbide Mononitrate ER [Imdur] 30 mg PO DAILY@0800 07/06/22 02/01/23 History Lactulose [Cephulac] 20 gm PO DAILY@0800 10/15/22 02/01/23 History traMADol HCL 50 mg PO Q6H 10/15/22 02/01/23 History Nitroglycerin Sl Tabs [Nitrostat] 0.4 mg SL Q5M PRN 10/20/22 02/01/23 History Furosemide [Lasix] 40 mg PO DAILY@0800 12/08/22 02/01/23 History Metoprolol Tartrate [Lopressor] 12.5 mg PO BID@0812/08/22 02/01/23 History Sucralfate [Sucralfate Oral Susp] 1 gm PO ACHS@08,12,17,20 12/08/22 02/01/23 History Collagenase [Santyl Ointment] 1 applic TOPICAL DAILY 02/01/23 02/01/23 History Allergies Allergy/AdvReac Type Severity Reaction Status Date / Time furosemide [From Lasix] AdvReac Unknown Verified 02/01/23 14:42 sacubitril [From Entresto] AdvReac made him Verified 02/01/23 14:42 hypotensive valsartan [From Entresto] AdvReac made him Verified 02/01/23 14:42 hypotensive Physical Exam Vitals: Vital Signs Temp Pulse Resp BP Pulse Ox 02/01/23 13:18 93 22 127/73 98 02/01/23 12:07 98.5 F 73 24 98/64 95 Intake and Output 02/01/23 02/01/23 02/01/23 06:59 14:59 22:59 Other: Weight 122.47 kg Results CBC & Chem 7: 02/01/23 12:17 02/01/23 12:17 Labs: Abnormal Lab Results - Last 24 Hours (Table) 02/01/23 02/01/23 02/01/23 Range/Units 12:17 12:17 12:17 RBC 3.66 L (4.30-5.90) m/uL Hgb 11.3 L (13.0-17.5) gm/dL Hct 34.4 L (39.0-53.0) % BUN 30 H (9-20) mg/dL Glucose 152 H (74-99) mg/dL Troponin I 0.045 H* (0.000-0.034) ng/mL Total Protein 6.2 L (6.3-8.2) g/dL Albumin 3.4 L (3.5-5.0) g/dL 02/01/23 Range/Units 15:19 RBC (4.30-5.90) m/uL Hgb (13.0-17.5) gm/dL Hct (39.0-53.0) % BUN (9-20) mg/dL Glucose (74-99) mg/dL Troponin I 0.045 H* (0.000-0.034) ng/mL Total Protein (6.3-8.2) g/dL Albumin (3.5-5.0) g/dL
[2023-02-01] MEDS: DICYCLOMINE 10 MG CAP PO SCH ×2 (16:35→19:37)
[2023-02-01] MEDS: SUCRALFATE 1 GM TAB PO SCH ×2 (16:35→19:36)
[2023-02-01 16:41] LABS: Glucose,Whole Blood 136 mg/dL (70-110)
[2023-02-01] MEDS: INSULIN ASPART (NovoLOG) 100 UNIT/ML VIAL SQ SCH ×2 (16:47→20:48)
[2023-02-01] MEDS: IPRATROPIUM-ALBUTEROL 3 ML NEB INHALATION PRN ×2 (16:54→20:17)
[2023-02-01] MEDS ORDERED: DICYCLOMINE PO SCH (17:00)
[2023-02-01] MEDS ORDERED: SUCRALFATE 1 GM/10 ML PO SCH (17:00)
[2023-02-01] MEDS: traMADol 50 MG TAB PO SCH ×2 (17:18→23:17)
[2023-02-01] MEDS ORDERED: INSULIN ASPART (NovoLOG) 100 UNIT/ML VIAL SQ SCH (17:30)
[2023-02-01] MEDS: METOPROLOL TARTRATE 12.5 MG TAB PO SCH (19:35)
[2023-02-01] MEDS: TOPIRAMATE 25 MG TAB PO SCH (19:36)
[2023-02-01] MEDS: ATORVASTATIN 80 MG TAB PO SCH (19:36)
[2023-02-01] MEDS: FAMOTIDINE 20 MG TAB PO SCH (19:37)
[2023-02-01] MEDS: FUROSEMIDE 10 MG/ML 4 ML VIAL IV SCH (19:38)
[2023-02-01 20:34] LABS: Glucose,Whole Blood 154 mg/dL (70-110)
[2023-02-01] MEDS: INSULIN DETEMIR (LEVEMIR) 100 UNIT/ML SYR SQ SCH (20:48)
[2023-02-01] MEDS: HEPARIN SODIUM,PORCINE 5,000 UNIT/ML 1 ML VIAL SQ SCH (23:17)
[2023-02-02] MEDS: IPRATROPIUM-ALBUTEROL 3 ML NEB INHALATION PRN ×5 (03:07→20:43)
[2023-02-02] MEDS: FUROSEMIDE 10 MG/ML 4 ML VIAL IV SCH ×3 (03:27→20:12)
[2023-02-02] MEDS: traMADol 50 MG TAB PO SCH ×4 (06:12→23:53)
[2023-02-02] MEDS: INSULIN ASPART (NovoLOG) 100 UNIT/ML VIAL SQ SCH ×4 (07:23→20:12)
[2023-02-02] MEDS: CLOPIDOGREL 75 MG TAB PO SCH (08:14)
[2023-02-02] MEDS: METOPROLOL TARTRATE 12.5 MG TAB PO SCH ×2 (08:14→20:12)
[2023-02-02] MEDS: SUCRALFATE 1 GM TAB PO SCH ×4 (08:15→20:12)
[2023-02-02] MEDS: FERROUS SULFATE 325 MG TAB PO SCH (08:15)
[2023-02-02] MEDS: LACTULOSE 20 GM/30 ML CUP PO SCH (08:15)
[2023-02-02] MEDS: DICYCLOMINE 10 MG CAP PO SCH ×3 (08:15→20:12)
[2023-02-02] MEDS: FAMOTIDINE 20 MG TAB PO SCH ×2 (08:15→20:12)
[2023-02-02] MEDS: ASPIRIN 81 MG PO SCH (08:15)
[2023-02-02] MEDS: HEPARIN SODIUM,PORCINE 5,000 UNIT/ML 1 ML VIAL SQ SCH ×3 (08:16→23:55)
[2023-02-02] MEDS: ISOSORBIDE MONONITRATE ER 30 MG TAB.ER.24H PO SCH (08:20)
[2023-02-02] MEDS ORDERED: ASPIRIN 325 MG TAB PO SCH (09:00)
[2023-02-02 09:04] LABS: African American GFR (CKD) 80 (>60 ml/min/1.73 sqM); Anion Gap 9 mmol/L; Blood Urea Nitrogen 31 mg/dL (9-20); Calcium 8.9 mg/dL (8.4-10.2); Carbon Dioxide 28 mmol/L (22-30); Chloride 102 mmol/L (98-107); Glucose 100 mg/dL (74-99); Magnesium 1.7 mg/dL (1.6-2.3); Non-African American GFR(CKD) 69 (>60 ml/min/1.73 sqM); Potassium 4.2 mmol/L (3.5-5.1); Sodium 139 mmol/L (137-145)
[2023-02-02] MEDS: COLLAGENASE 250 UNIT/GM OINTMENT 30 GM TUBE TOPICAL SCH ×2 (10:15→14:07)
--- NOTE | 2023-02-02 11:08 | P.PN ---
Subjective Progress Note Date: 02/02/23 Hospital Course: 67-year-old male with history of CAD status post CABG presenting with worsening orthopnea and exertional dyspnea as well as lower extremity edema. In the ED, temperature was 98.5, pulse 73, respiratory rate 24, saturating at 95% on room air, blood pressure 98/64 improving to 127/73. WBC 9.1, hemoglobin 11.3 at baseline, sodium 139, potassium 4.7, BUN 30, creatinine 1.11, at baseline, glucose 152, troponin 0.045, proBNP 4000. Chest x-ray independently interpreted, shows no acute opacities. Patient admitted for observation for CHF exacerbation. Cardiology also consulted. He is currently on IV diuretics. Subjective: Patient seen and examined at bedside. Still having significant orthopnea. Has not gotten out of bed. Continues to make urine. Pertinent positives and negatives as discussed above, a complete review of systems was performed and all other systems are negative. Vitals Signs Reviewed. General: nontoxic, no distress, appears at stated age, obese Derm: warm, dry Head: atraumatic, normocephalic, symmetric Eyes: EOMI, no lid lag, anicteric sclera Mouth: no lip lesion, mucus membranes moist Cardiovascular: S1S2 reg, no murmur Lungs: Bilateral rales , no accessory muscle use Abdominal: soft, nontender to palpation, no guarding, no appreciable organomegaly Ext: no gross muscle atrophy, 2+ pitting edema, no contractures Neuro: CN II-XI grossly intact, no focal neuro deficits Psych: Alert, oriented, appropriate affect Data Reviewed Today: Pertinent Labs: Sodium 139, potassium 4.2, creatinine 1.12, blood sugars range between 100-154, magnesium 1.7, A1c 7.3 Imaging: EKG independently interpreted from yesterday, shows right bundle branch block and nonspecific ST-T wave changes Assessment and Plan: Acute on chronic systolic heart failure exacerbation, last known EF 25-30% NSTEMI, likely type II the setting of CHF exacerbation Recent left SFA balloon angioplasty History of CAD status post CABG -Continue home aspirin, statin, and Plavix -Continue 40 mg IV Lasix every 8 hours, monitor renal function and electrolytes, daily BMP -Cardiology consulted, pending recommendations -Telemetry -Patient has no active chest pain -Patient not currently on ACEi/ARB, consider starting low-dose -Discussed management with outpatient PCP, continue IV diuretics for now Insulin-dependent type 2 diabetes, A1c 7.3 -Resume home glargine at 75 units daily at bedtime -Started on sliding scale insulin, monitor for hypoglycemia -Holding other antidiabetic medications Chronic: Hypertension Dyslipidemia DVT ppx: Subcu heparin Code status: Full code Anticipated discharge place: Pending clinical course Anticipated discharge time: Pending clinical course Objective - Vital Signs Vital signs: Vital Signs Temp 98.1 F 02/01/23 17:12 Pulse 89 02/02/23 10:50 Resp 18 02/02/23 10:50 BP 131/81 02/02/23 10:50 Pulse Ox 95 02/02/23 10:50 FiO2 Intake & Output 02/01/23 02/02/23 02/02/23 18:59 06:59 18:59 Output Total 1300 900 Balance -1300 -900 Weight 122.47 kg Output: Urine 1300 900 - Labs CBC & Chem 7: 02/01/23 12:17 02/02/23 07:54 Labs: Abnormal Lab Results - Last 24 Hours (Table) 02/01/23 02/01/23 02/01/23 Range/Units 12:17 12:17 12:17 RBC 3.66 L (4.30-5.90) m/uL Hgb 11.3 L (13.0-17.5) gm/dL Hct 34.4 L (39.0-53.0) % BUN 30 H (9-20) mg/dL Glucose 152 H (74-99) mg/dL POC Glucose (mg/dL) (70-110) mg/dL Hemoglobin A1c (<=6.0) % Troponin I 0.045 H* (0.000-0.034) ng/mL Total Protein 6.2 L (6.3-8.2) g/dL Albumin 3.4 L (3.5-5.0) g/dL 02/01/23 02/01/23 02/01/23 Range/Units 12:17 15:19 16:40 RBC (4.30-5.90) m/uL Hgb (13.0-17.5) gm/dL Hct (39.0-53.0) % BUN (9-20) mg/dL Glucose (74-99) mg/dL POC Glucose (mg/dL) 136 H (70-110) mg/dL Hemoglobin A1c 7.3 H (<=6.0) % Troponin I 0.045 H* (0.000-0.034) ng/mL Total Protein (6.3-8.2) g/dL Albumin (3.5-5.0) g/dL 02/01/23 02/01/23 02/02/23 Range/Units 18:36 20:32 07:54 RBC (4.30-5.90) m/uL Hgb (13.0-17.5) gm/dL Hct (39.0-53.0) % BUN 31 H (9-20) mg/dL Glucose 100 H (74-99) mg/dL POC Glucose (mg/dL) 154 H (70-110) mg/dL Hemoglobin A1c (<=6.0) % Troponin I 0.044 H* (0.000-0.034) ng/mL Total Protein (6.3-8.2) g/dL Albumin (3.5-5.0) g/dL
[2023-02-02 11:52] LABS: Glucose,Whole Blood 110 mg/dL (70-110)
--- NOTE | 2023-02-02 12:46 | P.CONS ---
History of Present Illness - Reason for Consult Consult date: 02/02/23 wound care - History of Present Illness This is a 67-year-old patient known to the wound care center with a nonhealing ulceration to the left lateral foot. Patient states that the ulceration has been there for a few weeks. He was seen last week and Santyl was ordered. However the patient states that he did not have the right supplies until just recently so it had not been changed daily. Patient states that he did not notice any odor until yesterday when it was changed at sunrise pain. Patient now has increased odor and drainage. The wound bed shows Slough, nonviable tissue, and eschar. No granulation noted within the wound bed. There is undermining noted at 7:00 to 9:00. The ulceration measures approximately 2.5 x 1.7 x 0.3 cm with muscle involvement without evidence of necrosis. Review Of Systems: Constitutional: No fever, no chills, no night sweats. No weight change. No weakness, fatigue or lethargy. No daytime sleepiness. Integumentary:reports wounds, no lesions. No rash or pruritus. No unusual bruising. No change in hair or nails. Physical exam: General Appearance: Alert, cooperative, no distress, appears stated age. Skin: See HPI all other Skin color, texture, tugor normal, no rashes or lesions. Neurologic: Alert oriented x3 Assessment: 1. 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 Diabetic foot ulcer 3. Venous insufficiency Plan: 1. Apply Santyl, saline moistened gauze, dry gauze, rolled gauze and secured paper tape. Patient will be seen in the wound care center next WednesdayFeb.10 @ 10:00. Thank you for the consultation any questions please contact the wound care center DNP note has been reviewed and discussed with Dr. Wade and the impression and plan of care has been directed as dictated. Past Medical History Past Medical History: Cancer, Heart Failure, Dementia, Diabetes Mellitus, GERD/Reflux, Hearing Disorder / Deafness, Hyperlipidemia, Hypertension, Myocardial Infarction ([place]), Osteoarthritis (OA), Pneumonia Additional Past Medical History / Comment(s): Brain CA (30 years ago) in remission. 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 Mother Additional Family Medical History / Comment(s): Mother had a bad heart. Medications and Allergies Home Medications Medication Instructions Recorded Confirmed Type Aspirin EC [Ecotrin Low Dose] 81 mg PO DAILY@0800 01/12/19 02/01/23 History Atorvastatin [Lipitor] 80 mg PO HS@199901/12/19 02/01/23 History Clopidogrel Bisulfate [Plavix] 75 mg PO DAILY@0800 07/28/21 02/01/23 History Ferrous Sulfate [Iron (65 MG 325 mg PO DAILY@0800 07/28/21 02/01/23 History Elemental)] Ipratropium-Albuterol Nebulize 3 ml INHALATION RT-QID PRN 07/28/21 02/01/23 History [Duoneb 0.5 mg-3 mg/3 ml Soln] Famotidine [Pepcid] 20 mg PO BID@0800,199903/18/22 02/01/23 History Dulaglutide [Trulicity] 1.5 mg SQ TH 04/01/22 02/01/23 History Insulin Aspart (Niacinamide) 25 units SQ BID 04/01/22 02/01/23 History [Fiasp 100 Unit/ml Flextouch Pen] Insulin Glargine,Hum.rec.anlog 75 units SQ HS 04/01/22 02/01/23 History [Basaglar Kwikpen U-100] Topiramate [Topamax] 25 mg PO HS@199904/01/22 02/01/23 History Acetaminophen [Tylenol] 650 mg PO QID PRN 04/22/22 02/01/23 History Albuterol Sulfate [Albuterol 1 - 2 puff INHALATION RT-Q4H PRN 04/22/22 02/01/23 History Sulfate Hfa] Dicyclomine 10mg/5ml Oral Solution 10 mg PO TID@0800,1700,199907/06/22 02/01/23 History Isosorbide Mononitrate ER [Imdur] 30 mg PO DAILY@0800 07/06/22 02/01/23 History Lactulose [Cephulac] 20 gm PO DAILY@0800 10/15/22 02/01/23 History traMADol HCL 50 mg PO Q6H 10/15/22 02/01/23 History Nitroglycerin Sl Tabs [Nitrostat] 0.4 mg SL Q5M PRN 10/20/22 02/01/23 History Furosemide [Lasix] 40 mg PO DAILY@0800 12/08/22 02/01/23 History Metoprolol Tartrate [Lopressor] 12.5 mg PO BID@0800,199912/08/22 02/01/23 History Sucralfate [Sucralfate Oral Susp] 1 gm PO ACHS@08,12,17,20 12/08/22 02/01/23 History Collagenase [Santyl Ointment] 1 applic TOPICAL DAILY 02/01/23 02/01/23 History Allergies Allergy/AdvReac Type Severity Reaction Status Date / Time furosemide [From Lasix] AdvReac Unknown Verified 02/01/23 14:42 sacubitril [From Entresto] AdvReac made him Verified 02/01/23 14:42 hypotensive valsartan [From Entresto] AdvReac made him Verified 02/01/23 14:42 hypotensive Physical Exam Vitals: Vital Signs Temp Pulse Resp BP Pulse Ox 02/02/23 11:23 84 02/02/23 11:11 80 02/02/23 11:00 88 18 135/80 95 02/02/23 10:50 89 18 131/81 95 02/02/23 08:00 89 18 157/79 96 02/02/23 07:43 89 02/02/23 07:31 88 02/02/23 06:18 89 137/86 98 02/02/23 04:00 16 02/02/23 03:19 95 02/02/23 03:09 92 02/02/23 02:26 91 16 133/88 95 10/23/23 23:24 93 16 135/79 02/01/23 22:10 93 18 150/85 97 02/01/23 20:53 93 14 144/86 96 02/01/23 20:31 66 02/01/23 20:18 92 02/01/23 19:30 85 18 129/78 97 02/01/23 17:12 98.1 F 90 20 137/77 98 02/01/23 17:00 93 02/01/23 16:56 92 02/01/23 16:34 92 18 142/75 97 02/01/23 13:18 93 22 127/73 98 Intake and Output 02/01/23 02/02/23 02/02/23 22:59 06:59 14:59 Output Total 1300 900 Balance -1300 -900 Output: Urine 1300 900 Results CBC & Chem 7: 02/01/23 12:17 02/02/23 07:54 Labs: Abnormal Lab Results - Last 24 Hours (Table) 02/01/23 02/01/23 02/01/23 Range/Units 12:17 12:17 12:17 RBC 3.66 L (4.30-5.90) m/uL Hgb 11.3 L (13.0-17.5) gm/dL Hct 34.4 L (39.0-53.0) % BUN 30 H (9-20) mg/dL Glucose 152 H (74-99) mg/dL POC Glucose (mg/dL) (70-110) mg/dL Hemoglobin A1c (<=6.0) % Troponin I 0.045 H* (0.000-0.034) ng/mL Total Protein 6.2 L (6.3-8.2) g/dL Albumin 3.4 L (3.5-5.0) g/dL 02/01/23 02/01/23 02/01/23 Range/Units 12:17 15:19 16:40 RBC (4.30-5.90) m/uL Hgb (13.0-17.5) gm/dL Hct (39.0-53.0) % BUN (9-20) mg/dL Glucose (74-99) mg/dL POC Glucose (mg/dL) 136 H (70-110) mg/dL Hemoglobin A1c 7.3 H (<=6.0) % Troponin I 0.045 H* (0.000-0.034) ng/mL Total Protein (6.3-8.2) g/dL Albumin (3.5-5.0) g/dL 02/01/23 02/01/23 02/02/23 Range/Units 18:36 20:32 07:54 RBC (4.30-5.90) m/uL Hgb (13.0-17.5) gm/dL Hct (39.0-53.0) % BUN 31 H (9-20) mg/dL Glucose 100 H (74-99) mg/dL POC Glucose (mg/dL) 154 H (70-110) mg/dL Hemoglobin A1c (<=6.0) % Troponin I 0.044 H* (0.000-0.034) ng/mL Total Protein (6.3-8.2) g/dL Albumin (3.5-5.0) g/dL Assessment and Plan (1) Non-pressure chronic ulcer of other part of left foot with muscle involvement without evidence of necrosis Current Visit: Yes Status: Acute Code(s): L97.525 - NON-PRS CHR ULC OTH PRT L FOOT WITH MSL INVL W/O EVD OF NECR SNOMED Code(s): 40382346506420498 (2) Type 2 diabetes mellitus with foot ulcer Current Visit: Yes Status: Acute Code(s): E11.621 - TYPE 2 DIABETES MELLITUS WITH FOOT ULCER; L97.509 - NON-PRESSURE CHRONIC ULCER OTH PRT UNSP FOOT W UNSP SEVERITY SNOMED Code(s): 787111658 (3) Venous insufficiency (chronic) (peripheral) Current Visit: Yes Status: Acute Code(s): I87.2 - VENOUS INSUFFICIENCY (CHRONIC) (PERIPHERAL) SNOMED Code(s): 79131363
--- NOTE | 2023-02-02 14:15 | P.CRDCN ---
History of Present Illness Consult date: 02/02/23 Consult reason: congestive heart failure History of present illness: History of present illness: This is a 67-year-old male with a past medical history significant for hypertension, hyperlipidemia, diabetes, coronary artery disease, cardiomyopathy, and peripheral arterial disease. Patient follows in the office with Dr. Dr. Flores. We have been asked to see the patient in consultation for congestive heart failure. We have been asked to evaluate the patient for heart failure. Patient presented to the emergency center due to lower extremity edema over the past 1 week. Patient states that he has been under the care of the wound center for w ound on the left lateral plantar foot. She he is not on antibiotics. His last visit was last . Wound has a foul order which she states is new since . He has not been feeling well for the past 1-1/2 weeks and has noticed lower extremity edema. He states he always has chills but no documented fever. He does have a [place] [facility] [place] currently denies having any chest pain, no shortness of breath. He was recently hospitalized on 01/20 for balloon angioplasty of the left SFA and has a scheduled appointment with Dr. Flores tomorrow. Patient has been started on IV Lasix 40 mg every 8 hours. EKG sinus rhythm, right bundle branch block Chest x-ray: No acute cardiopulmonary process WBC 9.1, hemoglobin 11.3, platelet count 258. INR 0.9. Electrolytes normal. BUN 30 creatinine 1.11. Blood sugar 152. Troponins 0.045, 0.045, 0.044. Liver function tests are normal. ProBNP 4090. Current home cardiac medications include aspirin 81 mg daily, atorvastatin 80 mg at bedtime, Plavix 75 mg daily, Lasix 40 mg daily, Imdur 30 mg daily, Lopressor 12.5 mg twice daily, Nitrostat as needed Echocardiogram 01/04/2023: EF 25%, mild aortic sclerosis. Cardiac catheterization history: March 2022 revealing chronic total occlusion of the distal RCA. Intermediate disease involving OM 1 Patient underwent lower extremity angiogram with Dr. Mai in August 2022 revealing intermediate disease involving the right external iliac artery, occluded right SFA and severe disease involving the left SFA. One-vessel runoff below the knee bilaterally with anterior tibial 12/09/2022: Angioplasty and stenting of the right SFA. Adjunctive use of orbital atherectomy. 01/20/2023 successful balloon angioplasty of the left SFA and adjunctive use of intravascular ultrasound as well as atherectomy REVIEW OF SYSTEMS: At the time of my exam: CONSTITUTIONAL: Denies fever +chills. Generalized fatigue. HEENT: Denies blurred vision, vision changes, or eye pain. Denies hemoptysis CARDIOVASCULAR: Denies chest pain. Denies orthopnea. Denies PND. Denies palpitations. + Lower extremity edema. RESPIRATORY: Reports shortness of breath. GASTROINTESTINAL: Denies abdominal pain. Denies nausea or vomiting. HEMATOLOGIC: Denies bleeding disorders. GENITOURINARY: Denies any blood in urine. SKIN: Denies pruitis. Denies rash. Positive wound left foot. PHYSICAL EXAM: VITAL SIGNS: Reviewed. GENERAL: Well-developed in no acute distress. HEENT: Head is normocephalic. Pupils are equal, round. Sclerae anicteric. Mucous membranes of the mouth are moist. Neck supple. No JVD or thyromegaly LUNGS: Respirations even and unlabored. Lungs diminished to auscultation bilaterally. HEART: Regular rate and rhythm. S1 and S2 heard. ABDOMEN: Soft. Nondistended. Nontender. EXTREMITIES: No clubbing or cyanosis. Peripheral pulses intact. 2+ lower extremity edema, transmetatarsal amputation on the right foot. Wound with foul order to the left distal plantar/lateral fifth metatarsal. NEUROLOGIC: Awake and alert. Oriented x 3. ASSESSMENT: Lower extremity edema Chronic wound left foot Troponins flat, acute coronary syndrome ruled out Acute on chronic heart failure with reduced systolic function Coronary artery disease with known chronic total occlusion of distal RCA and intermediate disease involving OM 1 Peripheral arterial disease with previous stenting Hypertension Hyperlipidemia COPD Chronic hypoxic respiratory failure, on home O2 Diabetes Former nicotine dependence PLAN: Resume patient's home cardiac medications No need to repeat echocardiogram as this was recently performed Continue IV Lasix Monitor I&O, daily weights, electrolytes and renal function Obtain arterial ultrasound to evaluate PAD Further recommendations pending patient's course Nurse practitioner note has been reviewed, I agree with documented findings and plan of care. Patient was seen and examined. Past Medical History Past Medical History: Cancer, Heart Failure, Dementia, Diabetes Mellitus, GERD/Reflux, Hearing Disorder / Deafness, Hyperlipidemia, Hypertension, Myocardial Infarction ([place]), Osteoarthritis (OA), Pneumonia Additional Past Medical History / Comment(s): Brain CA (30 years ago) in remission. 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 Mother Additional Family Medical History / Comment(s): Mother had a bad heart. Medications and Allergies Home Medications Medication Instructions Recorded Confirmed Type Aspirin EC [Ecotrin Low Dose] 81 mg PO DAILY@0800 01/12/19 02/01/23 History Atorvastatin [Lipitor] 80 mg PO HS@199901/12/19 02/01/23 History Clopidogrel Bisulfate [Plavix] 75 mg PO DAILY@0800 07/28/21 02/01/23 History Ferrous Sulfate [Iron (65 MG 325 mg PO DAILY@0800 07/28/21 02/01/23 History Elemental)] Ipratropium-Albuterol Nebulize 3 ml INHALATION RT-QID PRN 07/28/21 02/01/23 History [Duoneb 0.5 mg-3 mg/3 ml Soln] Famotidine [Pepcid] 20 mg PO BID@0800,199903/18/22 02/01/23 History Dulaglutide [Trulicity] 1.5 mg SQ TH 04/01/22 02/01/23 History Insulin Aspart (Niacinamide) 25 units SQ BID 04/01/22 02/01/23 History [Fiasp 100 Unit/ml Flextouch Pen] Insulin Glargine,Hum.rec.anlog 75 units SQ HS 04/01/22 02/01/23 History [Basaglar Kwikpen U-100] Topiramate [Topamax] 25 mg PO HS@199904/01/22 02/01/23 History Acetaminophen [Tylenol] 650 mg PO QID PRN 04/22/22 02/01/23 History Albuterol Sulfate [Albuterol 1 - 2 puff INHALATION RT-Q4H PRN 04/22/22 02/01/23 History Sulfate Hfa] Dicyclomine 10mg/5ml Oral Solution 10 mg PO TID@0800,1700,199907/06/22 02/01/23 History Isosorbide Mononitrate ER [Imdur] 30 mg PO DAILY@0800 07/06/22 02/01/23 History Lactulose [Cephulac] 20 gm PO DAILY@0800 10/15/22 02/01/23 History traMADol HCL 50 mg PO Q6H 10/15/22 02/01/23 History Nitroglycerin Sl Tabs [Nitrostat] 0.4 mg SL Q5M PRN 10/20/22 02/01/23 History Furosemide [Lasix] 40 mg PO DAILY@0800 12/08/22 02/01/23 History Metoprolol Tartrate [Lopressor] 12.5 mg PO BID@0800,199912/08/22 02/01/23 History Sucralfate [Sucralfate Oral Susp] 1 gm PO ACHS@08,12,17,20 12/08/22 02/01/23 History Collagenase [Santyl Ointment] 1 applic TOPICAL DAILY 02/01/23 02/01/23 History Allergies Allergy/AdvReac Type Severity Reaction Status Date / Time furosemide [From Lasix] AdvReac Unknown Verified 02/01/23 14:42 sacubitril [From Entresto] AdvReac made him Verified 02/01/23 14:42 hypotensive valsartan [From Entresto] AdvReac made him Verified 02/01/23 14:42 hypotensive Physical Exam Vitals: Vital Signs Temp Pulse Resp BP Pulse Ox 02/02/23 07:43 89 02/02/23 07:31 88 02/02/23 06:18 89 137/86 98 02/02/23 04:00 16 02/02/23 03:19 95 02/02/23 03:09 92 02/02/23 02:26 91 16 133/88 95 02/01/23 23:24 93 16 135/79 02/01/23 22:10 93 18 150/85 97 02/01/23 20:53 93 14 144/86 96 02/01/23 20:31 66 02/01/23 20:18 92 02/01/23 19:30 85 18 129/78 97 02/01/23 17:12 98.1 F 90 20 137/77 98 02/01/23 17:00 93 02/01/23 16:56 92 02/01/23 16:34 92 18 142/75 97 02/01/23 13:18 93 22 127/73 98 02/01/23 12:07 98.5 F 73 24 98/64 95 Intake and Output 02/01/23 02/02/23 02/02/23 22:59 06:59 14:59 Output Total 1300 900 Balance -1300 -900 Output: Urine 1300 900 Results 02/01/23 12:17 02/02/23 07:54 Cardiac Enzymes 02/01/23 02/01/23 02/01/23 Range/Units 12:17 12:17 15:19 AST 25 (17-59) U/L Troponin I 0.045 H* 0.045 H* (0.000-0.034) ng/mL 02/01/23 Range/Units 18:36 AST (17-59) U/L Troponin I 0.044 H* (0.000-0.034) ng/mL Coagulation 02/01/23 Range/Units 12:17 PT 10.5 (10.0-12.5) sec APTT 22.2 (22.0-30.0) sec CBC 02/01/23 Range/Units 12:17 WBC 9.1 (3.8-10.6) k/uL RBC 3.66 L (4.30-5.90) m/uL Hgb 11.3 L (13.0-17.5) gm/dL Hct 34.4 L (39.0-53.0) % Plt Count 258 (150-450) k/uL Comprehensive Metabolic Panel 02/01/23 Range/Units 12:17 Sodium 139 (137-145) mmol/L Potassium 4.7 (3.5-5.1) mmol/L Chloride 104 (98-107) mmol/L Carbon Dioxide 26 (22-30) mmol/L BUN 30 H (9-20) mg/dL Creatinine 1.11 (0.66-1.25) mg/dL Glucose 152 H (74-99) mg/dL Calcium 8.6 (8.4-10.2) mg/dL AST 25 (17-59) U/L ALT 24 (4-49) U/L Alkaline Phosphatase 72 (38-126) U/L Total Protein 6.2 L (6.3-8.2) g/dL Albumin 3.4 L (3.5-5.0) g/dL Current Medications Generic Name Dose Route Start Last Admin Trade Name Freq PRN Reason Stop Dose Admin Acetaminophen 650 mg 02/01/23 15:43 Acetaminophen Tab 325 Mg Tab PO QID PRN Fever and/ or Pain Albuterol/Ipratropium 3 ml 02/01/23 15:43 02/02/23 07:31 Ipratropium-Albuterol 3 Ml Neb INHALATION 3 ml RT-QID PRN Administration Shortness Of Breath Aspirin 81 mg 02/02/23 08:00 Aspirin 81 Mg PO DAILY@0800 [facility] Atorvastatin Calcium 80 mg 02/01/23 20:00 02/01/23 19:36 Atorvastatin 80 Mg Tab PO 80 mg HS@1999 [facility] Administration Clopidogrel Bisulfate 75 mg 02/02/23 08:00 Clopidogrel 75 Mg Tab PO DAILY@0800 [facility] Dextrose/Water 25 ml 02/01/23 16:24 Dextrose 50% Syringe 50 Ml IVP PER PROTOCOL PRN Hypoglycemia Protocol Dextrose/Water 50 ml 02/01/23 16:24 Dextrose 50% Syringe 50 Ml IVP PER PROTOCOL PRN Hypoglycemia Protocol Dicyclomine HCl 10 mg 02/01/23 17:00 02/01/23 19:37 Dicyclomine 10 Mg Cap PO 10 mg TID@0800, [facility] Administration Famotidine 20 mg 02/01/23 20:00 02/01/23 19:37 Famotidine 20 Mg Tab PO 20 mg BID@ [facility] Administration Ferrous Sulfate 325 mg 02/02/23 08:00 Ferrous Sulfate 325 Mg Tab PO DAILY@0800 [facility] Furosemide 40 mg 02/01/23 20:00 02/02/23 03:27 Furosemide 10 Mg/Ml 4 Ml Vial IV 40 mg Q8H [facility] Administration Heparin Sodium (Porcine) 5,000 unit 02/02/23 00:00 02/01/23 23:17 Heparin Sodium,Porcine 5,000 Unit/Ml 1 Ml Vial SQ 5,000 unit Q8HR [facility] Administration Insulin Aspart 0 unit 02/01/23 17:30 02/02/23 07:23 Insulin Aspart (Novolog) 100 Unit/Ml Vial SQ Not Given ACHS [facility] Protocol Insulin Detemir 75 unit 02/01/23 21:00 02/01/23 20:48 Insulin Detemir (Levemir) 100 Unit/Ml Syr SQ 75 unit HS [facility] Administration Isosorbide Mononitrate 30 mg 02/02/23 08:00 Isosorbide Mononitrate Er 30 Mg Tab.Er.24h PO DAILY@0800 [facility] Lactulose 20 gm 02/02/23 08:00 Lactulose 20 Gm/30 Ml Cup PO DAILY@0800 [facility] Metoprolol Tartrate 12.5 mg 02/01/23 20:00 02/01/23 19:35 Metoprolol Tartrate 12.5 Mg Tab PO 12.5 mg BID@799,1999 [facility] Administration Non-Formulary Medication 1.5 mg 02/04/23 09:00 Dulaglutide [Trulicity] SQ Th@0900 [facility] Collagenase 250 Unit 1 each 02/02/23 09:00 /Gm Ointment 30 Gm TOPICAL Tube DAILY [facility] Protocol Sucralfate 1 gm 02/01/23 17:00 02/01/23 19:36 Sucralfate 1 Gm Tab PO 1 gm ACHS@08,12,17,20 [facility] Administration Topiramate 25 mg 02/01/23 20:00 02/01/23 19:36 Topiramate 25 Mg Tab PO 25 mg HS@1999 [facility] Administration Tramadol HCl 50 mg 02/01/23 18:00 02/02/23 06:12 Tramadol 50 Mg Tab PO 50 mg Q6HR [facility] Administration Intake and Output 02/01/23 02/02/23 02/02/23 22:59 06:59 14:59 Output Total 1300 900 Balance -1300 -900 Output: Urine 1300 900 02/01/23 12:17 02/01/23 12:17
--- NOTE | 2023-02-02 15:50 | US ---
EXAMINATION TYPE: US arterial LE multi level DATE OF EXAM: 02/02/2023 3:28 PM CLINICAL INDICATION: Male, 67 years old with history of PAD, Ulcer left; known left foot ulcer, h/o a mputations of right toes, decreased pulses bilaterally History of: Smoker: previous Hypertension: y Diabetic: y Hyperlipidemia: n TIA/CVA: n Previous Vascular Surgery: y - bilateral leg stenting, patient not exactly sure how far down they go , only did ankle pressures CAD: y ID: y Vascular Ulcers: y- left foot Claudication: n Gangrene: n Doppler Waveforms: Right: Biphasic Left: Biphasic Right Brachial Pressure: 123 Left Brachial Pressure: 134 Ankle-Brachial Indices: Right: 0.9 Left: 0.7 Toe Brachial Indices: Right: amputated Left: 0.2 (Vessel hardening > 1.4; Normal 0.9 - 1.4, Moderate 0.7 - 0.9, Severe 0.5-0.7) IMPRESSION: Severe left and no significant right peripheral vascular disease by ankle brachial indices.
[2023-02-02 16:20] LABS: Glucose,Whole Blood 170 mg/dL (70-110)
[2023-02-02] MEDS ORDERED: NITROGLYCERIN OINT 1 INCH/GM PACKET TOPICAL SCH (18:00)
[2023-02-02 19:59] LABS: Glucose,Whole Blood 168 mg/dL (70-110)
[2023-02-02] MEDS: TOPIRAMATE 25 MG TAB PO SCH (20:12)
[2023-02-02] MEDS: ATORVASTATIN 80 MG TAB PO SCH (20:12)
[2023-02-02] MEDS: INSULIN DETEMIR (LEVEMIR) 100 UNIT/ML SYR SQ SCH (20:13)
[2023-02-03] MEDS: FUROSEMIDE 10 MG/ML 4 ML VIAL IV SCH ×2 (03:41→11:26)
[2023-02-03 03:58] VITALS: RESP 18
[2023-02-03] MEDS: INSULIN ASPART (NovoLOG) 100 UNIT/ML VIAL SQ SCH (06:01)
[2023-02-03 06:02] LABS: Glucose,Whole Blood 97 mg/dL (70-110)
[2023-02-03] MEDS: traMADol 50 MG TAB PO SCH ×2 (06:05→11:29)
[2023-02-03] MEDS: HEPARIN SODIUM,PORCINE 5,000 UNIT/ML 1 ML VIAL SQ SCH (08:39)
[2023-02-03] MEDS: FERROUS SULFATE 325 MG TAB PO SCH (08:39)
[2023-02-03] MEDS: FAMOTIDINE 20 MG TAB PO SCH (08:39)
[2023-02-03] MEDS: METOPROLOL TARTRATE 12.5 MG TAB PO SCH (08:39)
[2023-02-03] MEDS: CLOPIDOGREL 75 MG TAB PO SCH (08:39)
[2023-02-03] MEDS: DICYCLOMINE 10 MG CAP PO SCH (08:39)
[2023-02-03] MEDS: SUCRALFATE 1 GM TAB PO SCH ×2 (08:39→11:29)
[2023-02-03] MEDS: LACTULOSE 20 GM/30 ML CUP PO SCH (08:39)
[2023-02-03] MEDS: ASPIRIN 81 MG PO SCH (08:39)
[2023-02-03] MEDS: ISOSORBIDE MONONITRATE ER 30 MG TAB.ER.24H PO SCH (08:39)
[2023-02-03 08:42] VITALS: BP 134/63; TEMP 98
[2023-02-03] MEDS: IPRATROPIUM-ALBUTEROL 3 ML NEB INHALATION PRN ×2 (08:42→11:37)
[2023-02-03 09:11] LABS: African American GFR (CKD) 63 (>60 ml/min/1.73 sqM); Anion Gap 11 mmol/L; Blood Urea Nitrogen 43 mg/dL (9-20); Calcium 8.5 mg/dL (8.4-10.2); Carbon Dioxide 25 mmol/L (22-30); Chloride 101 mmol/L (98-107); Glucose 83 mg/dL (74-99); Magnesium 1.8 mg/dL (1.6-2.3); Non-African American GFR(CKD) 54 (>60 ml/min/1.73 sqM); Potassium 4.6 mmol/L (3.5-5.1); Sodium 137 mmol/L (137-145)
[2023-02-03] MEDS ORDERED: LOSARTAN 25 MG TAB PO SCH (09:15)
[2023-02-03] MEDS: COLLAGENASE 250 UNIT/GM OINTMENT 30 GM TUBE TOPICAL SCH ×2 (10:08)
--- NOTE | 2023-02-03 10:27 | XR ---
EXAMINATION TYPE: XR foot complete LT DATE OF EXAM: 02/03/2023 COMPARISON: None HISTORY: Possible osteomyelitis, pain TECHNIQUE: 3 view left foot FINDINGS: Soft tissue injury as along the lateral mid left foot. No suspicious cortical erosions are evident. Joint spaces are preserved. Some mild soft tissue swelling may be of the distal lateral foot . Achilles tendon calcaneal heel spur is present. Small plantar calcaneal heel spurs are present. Follow up exams can be performed 7-10 days from acute trauma for continued pain. Three-phase Nuclear medicine bone scan can be performed for sufficient clinical suspicion of osteomyelitis. IMPRESSION: 1. No suspicious acute changes to suggest osteomyelitis. Additional workup can be performed as clini alyssa indicated. 2. Soft tissue changes and mild soft tissue swelling lateral distal left foot
--- NOTE | 2023-02-03 11:03 | P.PN ---
Subjective Progress Note Date: 02/03/23 History of present illness: This is a 67-year-old male with a past medical history significant for hyperte nsion, hyperlipidemia, diabetes, coronary artery disease, cardiomyopathy, and peripheral arterial disease. Patient follows in the office with Dr. Flores. We have been asked to see the patient in consultation for congestive heart failure. We have been asked to evaluate the patient for heart failure. Patient presented to the emergency center due to lower extremity edema over the past 1 week. Patient states that he has been under the care of the wound center for wound on the left lateral plantar foot. She he is not on antibiotics. His last visit was last . Wound has a foul order which she states is new since . He has not been feeling well for the past 1-1/2 weeks and has noticed lower extremity edema. He states he always has chills but no documented fever. He does have a previous amputation to the distal right foot done at [facility]. Patient currently denies having any chest pain, no shortness of breath. He was recently hospitalized on 01/20 for balloon angioplasty of the left SFA and has a scheduled appointment with Dr. Flores tomorrow. Patient has been started on IV Lasix 40 mg every 8 hours. EKG sinus rhythm, right bundle branch block Chest x-ray: No acute cardiopulmonary process WBC 9.1, hemoglobin 11.3, platelet count 258. INR 0.9. Electrolytes normal. BUN 30 creatinine 1.11. Blood sugar 152. Troponins 0.045, 0.045, 0.044. Liver function tests are normal. ProBNP 4090. Current home cardiac medications include aspirin 81 mg daily, atorvastatin 80 mg at bedtime, Plavix 75 mg daily, Lasix 40 mg daily, Imdur 30 mg daily, Lopressor 12.5 mg twice daily, Nitrostat as needed Echocardiogram 01/04/2023: EF 25%, mild aortic sclerosis. Cardiac catheterization history: March 2022 revealing chronic total occlusion of the distal RCA. Intermediate disease involving OM 1 Patient underwent lower extremity angiogram with Dr. Mai in August 2022 revealing intermediate disease involving the right external iliac artery, occluded right SFA and severe disease involving the left SFA. One-vessel runoff below the knee bilaterally with anterior tibial 12/09/2022: Angioplasty and stenting of the right SFA. Adjunctive use of orbital atherectomy. 01/20/2023 successful balloon angioplasty of the left SFA and adjunctive use of intravascular ultrasound as well as atherectomy 02/03 Patient is seen today in follow-up on the cardiac stepdown unit. Lower extremity arterial ultrasound reveals severe left and no significant right per ipheral vascular disease by ankle-brachial indices. He has been on IV Lasix 40 mg every 8 hours. He states he is urinating more than he usually does but not a lot. He has been seen by the wound care team with planned follow-up in the office next week. Discussed case with attending and cleared patient for discharge. Agree with starting ARB. Blood pressure 134/63, heart rate in the 80s and 90s. BUN 43 creatinine 1.36. PHYSICAL EXAM: VITAL SIGNS: Reviewed. GENERAL: Well-developed in no acute distress. HEENT: Head is normocephalic. Pupils are equal, round. Sclerae anicteric. Mucous membranes of the mouth are moist. Neck supple. No JVD or thyromegaly LUNGS: Respirations even and unlabored. Lungs diminished to auscultation bilaterally. HEART: Regular rate and rhythm. S1 and S2 heard. ABDOMEN: Soft. Nondistended. Nontender. EXTREMITIES: No clubbing or cyanosis. Peripheral pulses intact. 1+ lower extremity edema, transmetatarsal amputation on the right foot. Wound with foul order to the left distal plantar/lateral fifth metatarsal. NEUROLOGIC: Awake and alert. Oriented x 3. ASSESSMENT: Lower extremity edema Chronic wound left foot Troponins flat, acute coronary syndrome ruled out Acute on chronic heart failure with reduced systolic function Coronary artery disease with known chronic total occlusion of distal RCA and intermediate disease involving OM 1 Peripheral arterial disease with previous stenting Hypertension Hyperlipidemia COPD Chronic hypoxic respiratory failure, on home O2 Diabetes Former nicotine dependence PLAN: Resume patient's home cardiac medications No need to repeat echocardiogram as this was recently performed Continue IV Lasix-may transition to oral for home Monitor I&O, daily weights, electrolytes and renal function Start patient on losartan 12.5 mg daily Patient is clear for discharge with follow-up in the office in one-2 weeks. Nurse practitioner note has been reviewed, I agree with documented findings and plan of care. Patient was seen and examined. Objective - Vital Signs Vital signs: Vital Signs Temp 98 F 02/03/23 08:00 Pulse 94 02/03/23 09:06 Resp 18 02/03/23 08:00 BP 134/63 02/03/23 08:00 Pulse Ox 99 02/03/23 08:54 FiO2 Intake & Output 02/02/23 02/03/23 02/03/23 18:59 06:59 18:59 Intake Total 465 225 Output Total 1175 1375 600 Balance -710 -1375 -375 Weight 122.47 kg 120.4 kg Intake: Oral 465 225 Output: Urine 1175 1375 600 Other: # Voids 1 - Labs CBC & Chem 7: 02/01/23 12:17 02/03/23 08:34 Labs: Abnormal Lab Results - Last 24 Hours (Table) 02/02/23 02/02/23 Range/Units 16:18 19:58 POC Glucose (mg/dL) 170 H 168 H (70-110) mg/dL
[2023-02-03 11:17] LABS: Glucose,Whole Blood 139 mg/dL (70-110)
--- NOTE | 2023-02-03 11:19 | P.DS ---
Providers Date of admission: 02/01/23 14:55 Expected date of discharge: 02/03/23 Attending physician: Betito Corcoran MD Consults: 02/01/23 14:55 Consult Physician Routine Consulting Provider: Rory Davis Consult Reason/Comments: chf Do you want consulting provider notified?: Yes Primary care physician: Connor Nicholson MD Hospital Course: Discharge Diagnosis: Acute on chronic systolic heart failure exacerbation, last known EF 25-30% NSTEMI, likely type II the setting of CHF exacerbation Recent left SFA balloon angioplasty History of CAD status post CABG Left foot ulceration Insulin-dependent type 2 diabetes, A1c 7.3 Hypertension Dyslipidemia Hospital Course: 67-year-old male with history of CAD status post CABG, systolic heart failure, peripheral arterial disease, insulin-dependent diabetes presenting with worsening orthopnea and exertional dyspnea as well as lower extremity edema. In the ED, temperature was 98.5, pulse 73, respiratory rate 24, saturating at 95% on room air, blood pressure 98/64 improving to 127/73. WBC 9.1, hemoglobin 11.3 at baseline, sodium 139, potassium 4.7, BUN 30, creatinine 1.11, at baseline, glucose 152, troponin 0.045, proBNP 4000. Chest x-ray independently interpreted, shows no acute opacities. Patient admitted for observation for CHF exacerbation. Cardiology also consulted. Patient was on IV diuretics. R espiratory function improved. Started on losartan 12.5 mg. Also being sent home on Lasix 40 3 times a day. Plan communicated with PCP. He will repeat BMP outpatient as well as taper down Lasix. Patient will also follow-up with wound care. X-rays negative for signs of osteomyelitis. Patient seen and examined at bedside. Vital signs reviewed and stable. General: nontoxic, no distress, appears at stated age, obese Derm: warm, dry, left lateral ulceration with no surrounding erythema Head: atraumatic, normocephalic, symmetric Eyes: EOMI, no lid lag, anicteric sclera Mouth: no lip lesion, mucus membranes moist Cardiovascular: S1S2 reg, no murmur Lungs: Bilateral rales , no accessory muscle use Abdominal: soft, nontender to palpation, no guarding, no appreciable organomegaly Ext: no gross muscle atrophy, 2+ pitting edema, no contractures Neuro: CN II-XI grossly intact, no focal neuro deficits Psych: Alert, oriented, appropriate affect A total of 33 minutes of time were spent preparing this complex discharge summary. Patient was discharged on 02/03/23 at 11:08. Patient Condition at Discharge: Stable Plan - Discharge Summary Discharge Rx Participant: No New Discharge Prescriptions: New Losartan [Cozaar] 12.5 mg PO DAILY #0 tab Collagenase [Santyl Ointment] 1 applic TOPICAL DAILY each Continue Atorvastatin [Lipitor] 80 mg PO HS@1999 Aspirin EC [Ecotrin Low Dose] 81 mg PO DAILY@0800 Ipratropium-Albuterol Nebulize [Duoneb 0.5 mg-3 mg/3 ml Soln] 3 ml INHALATION RT-QID PRN PRN Reason: Shortness Of Breath Clopidogrel Bisulfate [Plavix] 75 mg PO DAILY@0800 Famotidine [Pepcid] 20 mg PO BID@0800,1999 Insulin Aspart (Niacinamide) [Fiasp 100 Unit/ml Flextouch Pen] 25 units SQ BID Dulaglutide [Trulicity] 1.5 mg SQ TH Acetaminophen [Tylenol] 650 mg PO QID PRN PRN Reason: Fever And/ Or Pain Albuterol Sulfate [Albuterol Sulfate Hfa] 1 - 2 puff INHALATION RT-Q4H PRN PRN Reason: Shortness Of Breath Isosorbide Mononitrate ER [Imdur] 30 mg PO DAILY@0800 traMADol HCL 50 mg PO Q6H Metoprolol Tartrate [Lopressor] 12.5 mg PO BID@0800,1999 Collagenase [Santyl Ointment] 1 applic TOPICAL DAILY Ferrous Sulfate [Iron (65 MG Elemental)] 325 mg PO DAILY@0800 Topiramate [Topamax] 25 mg PO HS@1999 Insulin Glargine,Hum.rec.anlog [Basaglar Kwikpen U-100] 75 units SQ HS Dicyclomine 10mg/5ml Oral Solution 10 mg PO TID@0800,1700,1999 Lactulose [Cephulac] 20 gm PO DAILY@0800 Nitroglycerin Sl Tabs [Nitrostat] 0.4 mg SL Q5M PRN PRN Reason: Chest Pain Sucralfate [Sucralfate Oral Susp] 1 gm PO ACHS@08,12,17,20 Changed Furosemide [Lasix] 40 mg PO TID #0 Discharge Medication List Aspirin EC [Ecotrin Low Dose] 81 mg PO DAILY@0801/12/19 [History] Atorvastatin [Lipitor] 80 mg PO HS@199901/12/19 [History] Clopidogrel Bisulfate [Plavix] 75 mg PO DAILY@0800 07/28/21 [History] Ferrous Sulfate [Iron (65 MG Elemental)] 325 mg PO DAILY@0807/28/21 [History] Ipratropium-Albuterol Nebulize [Duoneb 0.5 mg-3 mg/3 ml Soln] 3 ml INHALATION RT-QID PRN 07/28/21 [History] Famotidine [Pepcid] 20 mg PO BID@799,199903/18/22 [History] Dulaglutide [Trulicity] 1.5 mg SQ TH 04/01/22 [History] Insulin Aspart (Niacinamide) [Fiasp 100 Unit/ml Flextouch Pen] 25 units SQ BID 04/01/22 [History] Insulin Glargine,Hum.rec.anlog [Basaglar Kwikpen U-100] 75 units SQ HS 04/01/22 [History] Topiramate [Topamax] 25 mg PO HS@199904/01/22 [History] Acetaminophen [Tylenol] 650 mg PO QID PRN 04/22/22 [History] Albuterol Sulfate [Albuterol Sulfate Hfa] 1 - 2 puff INHALATION RT-Q4H PRN 04/22/22 [History] Dicyclomine 10mg/5ml Oral Solution 10 mg PO TID@0800,1700,199907/06/22 [History] Isosorbide Mononitrate ER [Imdur] 30 mg PO DAILY@0807/06/22 [History] Lactulose [Cephulac] 20 gm PO DAILY@0810/15/22 [History] traMADol HCL 50 mg PO Q6H 10/15/22 [History] Nitroglycerin Sl Tabs [Nitrostat] 0.4 mg SL Q5M PRN 10/20/22 [History] Metoprolol Tartrate [Lopressor] 12.5 mg PO BID@08,199912/08/22 [History] Sucralfate [Sucralfate Oral Susp] 1 gm PO ACHS@08,12,17,20 08/29/23 [History] Collagenase [Santyl Ointment] 1 applic TOPICAL DAILY 02/01/23 [History] Collagenase [Santyl Ointment] 1 applic TOPICAL DAILY each 02/03/23 [Rx] Furosemide [Lasix] 40 mg PO TID #0 02/03/23 [Rx] Losartan [Cozaar] 12.5 mg PO DAILY #0 tab 02/03/23 [Rx] Follow up Appointment(s)/Referral(s): John Flores MD [STAFF PHYSICIAN] - 1 Week Connor Nicholson MD [Primary Care Provider] - 1-2 days Patient Instructions/Handouts: Heart Failure (DC) Activity/Diet/Wound Care/Special Instructions: Please see your PCP, cardiology and wound care. Wound care: 1. Apply Santyl, saline moistened gauze, dry gauze, rolled gauze and secured paper tape. wound care center appointment next WednesdayFeb.10 @ 10:00. Discharge Disposition: HOME SELF-CARE
[2023-02-03 12:05] VITALS: PULSE 88
[2023-02-04] MEDS ORDERED: NON FORMULARY DRUG (Dulaglutide [Trulicity] 1.5 MG/0.5 ML Each) SQ SCH (09:00)
== END 2023-02-03 12:21 | disposition home or self-care (01) ==
LOC: EC 11:56 → 6NMEDSUR 14:55 → 3SCARD 17:27
PROVIDERS: ADMIT Student in an Organized Health Care Education/Training Program; ATTEND Student in an Organized Health Care Education/Training Program
DX: I11.0 Hypertensive heart disease with heart failure (principal); I50.23 Acute on chronic systolic (congestive) heart failure; E11.51 Type 2 diabetes mellitus with diabetic peripheral angiopathy without gangrene; I87.2 Venous insufficiency (chronic) (peripheral); E11.621 Type 2 diabetes mellitus with foot ulcer; L97.525 Non-pressure chronic ulcer of other part of left foot with muscle involvement without evidence of necrosis; I25.10 Atherosclerotic heart disease of native coronary artery without angina pectoris; I25.82 Chronic total occlusion of coronary artery; F03.90 Unspecified dementia, unspecified severity, without behavioral disturbance, psychotic disturbance, mood disturbance, and anxiety; K21.9 Gastro-esophageal reflux disease without esophagitis; E78.5 Hyperlipidemia, unspecified; I25.2 Old myocardial infarction; I42.9 Cardiomyopathy, unspecified; F20.9 Schizophrenia, unspecified; F32.A Depression, unspecified; J96.11 Chronic respiratory failure with hypoxia; J44.9 Chronic obstructive pulmonary disease, unspecified; F41.9 Anxiety disorder, unspecified; Z99.81 Dependence on supplemental oxygen; Z85.841 Personal history of malignant neoplasm of brain; Z87.891 Personal history of nicotine dependence; Z95.1 Presence of aortocoronary bypass graft; Z95.820 Peripheral vascular angioplasty status with implants and grafts; Z79.82 Long term (current) use of aspirin; Z79.02 Long term (current) use of antithrombotics/antiplatelets; Z79.4 Long term (current) use of insulin; Z79.899 Other long term (current) drug therapy
CPT/HCPCS: 96376 ×3; 96372 ×3; 96374; 99285; 36415; 94640 ×5; 94760; 93005; 83880; 80053; 80048 ×2; 83735 ×3; 84484; 85025; 85610; 85730; 83036; 73630; 71046; 93922; G0378 ×4; J1644 ×3; J1940 ×3

== ENCOUNTER 2023-02-09 13:49 | Inpatient (IN) | payer OTHER ==
[2023-02-09 13:57] LABS: Glucose,Whole Blood 274 mg/dL (70-110)
[2023-02-09] MEDS ORDERED: IBUPROFEN 600 MG TAB PO STA (14:12)
[2023-02-09] MEDS ORDERED: PIPERACILLIN-TAZOBACTAM 3.375 GM in SODIUM CHLORIDE 0.9% 100 ML IVPB STA (14:12)
[2023-02-09] MEDS ORDERED: VANCOMYCIN IV PER PHARMACY 1 EACH MISC MISCELLANE PRN (14:12)
[2023-02-09] MEDS ORDERED: SODIUM CHLORIDE 0.9% 1,000 ML IV ONE ×2 (14:13→18:02)
[2023-02-09] MEDS ORDERED: ONDANSETRON 4 MG/2 ML VIAL IVP STA (14:13)
[2023-02-09] MEDS: SODIUM CHLORIDE 0.9% 500 ML 500 ML IV SCH ×2 (14:42→15:30)
[2023-02-09 14:45] LABS: Basophils % (A) 0 %; Eosinophils # (A) 0.1 k/uL (0-0.7); Eosinophils % (A) 1 %; HCT 38.8 % (39.0-53.0); HGB 12.6 gm/dL (13.0-17.5); Lymphocytes # (A) 0.3 k/uL (1.0-4.8); Lymphocytes % (A) 2 %; MCH 30.4 pg (25.0-35.0); MCHC 32.5 g/dL (31.0-37.0); MCV 93.6 fL (80.0-100.0); Mean Platelet Volume 7.8; Monocytes # (A) 0.3 k/uL (0-1.0); Monocytes % (A) 2 %; Neutrophils % (A) 95 %; Platelet Count 268 k/uL (150-450); RBC 4.15 m/uL (4.30-5.90); RDW 13.6 % (11.5-15.5); WBC 16.9 k/uL (3.8-10.6)
[2023-02-09] MEDS ORDERED: VANCOMYCIN 2,000 MG in SODIUM CHLORIDE 0.9% 500 ML 500 ML IVPB ONE (14:45)
[2023-02-09] MEDS: ACETAMINOPHEN TAB 500 MG TAB PO STA ×2 (14:45→14:52)
--- NOTE | 2023-02-09 14:53 | ED ---
General Adult HPI - General Chief complaint: Fever Stated complaint: Vomiting Time Seen by Provider: 02/09/23 14:00 Source: patient, EMS, RN notes reviewed, old records reviewed Mode of arrival: EMS - History of Present Illness Initial comments: This is a 67-year-old male who presents emergency Department with an ulceration on the lateral left aspect of his foot that is been about 6 weeks. Patient states her son today and thought that the wound looked worse and malodorous so the patient was sent into the emergency department. Nurses also stated the patient had a significant fever as well. Patient stateshe also said cough and some difficulty breathing. Patient also had a high sugar according to the nurse at the facility. Patient denies any chest pain. Patient denies any abdominal pain. Patient states he is nauseous and did vomit times one patient denies any diarrhea. Patient denies headache patient denies any numbness weakness. Patient denies any dysuria or hematuria but states he does have some urinary frequency. Patient is a known diabetic. - Related Data Home Medications Medication Instructions Recorded Confirmed Aspirin EC [Ecotrin Low Dose] 81 mg PO DAILY@0800 01/12/19 02/09/23 Atorvastatin [Lipitor] 80 mg PO HS@199901/12/19 02/09/23 Clopidogrel Bisulfate [Plavix] 75 mg PO DAILY@0800 07/28/21 02/09/23 Ferrous Sulfate [Iron (65 MG 325 mg PO DAILY@0800 07/28/21 02/09/23 Elemental)] Ipratropium-Albuterol Nebulize 3 ml INHALATION RT-QID PRN 07/28/21 02/09/23 [Duoneb 0.5 mg-3 mg/3 ml Soln] Famotidine [Pepcid] 20 mg PO BID@0803/18/22 02/09/23 Dulaglutide [Trulicity] 1.5 mg SQ TH 04/01/22 02/09/23 Insulin Aspart (Niacinamide) 25 units SQ BID 04/01/22 02/09/23 [Fiasp 100 Unit/ml Flextouch Pen] Insulin Glargine,Hum.rec.anlog 75 units SQ HS 04/01/22 02/09/23 [Basaglar Kwikpen U-100] Topiramate [Topamax] 25 mg PO HS@199904/01/22 02/09/23 Acetaminophen [Tylenol] 650 mg PO QID PRN 04/22/22 02/09/23 Albuterol Sulfate [Albuterol 1 - 2 puff INHALATION RT-Q4H PRN 04/22/22 02/09/23 Sulfate Hfa] Dicyclomine 10mg/5ml Oral Solution 10 mg PO TID@0800,170,199907/06/22 02/09/23 Isosorbide Mononitrate ER [Imdur] 30 mg PO DAILY@0800 07/06/22 02/09/23 Lactulose [Cephulac] 20 gm PO DAILY@0800 10/15/22 02/09/23 traMADol HCL 50 mg PO Q6H 10/15/22 02/09/23 Nitroglycerin Sl Tabs [Nitrostat] 0.4 mg SL Q5M PRN 10/20/22 02/09/23 Metoprolol Tartrate [Lopressor] 12.5 mg PO BID@08,199912/08/22 02/09/23 Sucralfate [Sucralfate Oral Susp] 1 gm PO ACHS@08,12,17,20 12/08/22 02/09/23 Collagenase [Santyl Ointment] 1 applic TOPICAL DAILY 02/01/23 02/09/23 Previous Rx's Medication Instructions Recorded Furosemide [Lasix] 40 mg PO TID #0 02/03/23 Losartan [Cozaar] 12.5 mg PO DAILY #0 tab 02/03/23 Allergies Allergy/AdvReac Type Severity Reaction Status Date / Time furosemide [From Lasix] AdvReac Unknown Verified 02/09/23 13:59 sacubitril [From Entresto] AdvReac made him Verified 02/09/23 13:59 hypotensive valsartan [From Entresto] AdvReac made him Verified 02/09/23 13:59 hypotensive Review of Systems ROS Statement: Those systems with pertinent positive or pertinent negative responses have been documented in the HPI. ROS Other: All systems not noted in ROS Statement are negative. Past Medical History Past Medical History: Cancer, Heart Failure, Dementia, Diabetes Mellitus, GERD/Reflux, Hearing Disorder / Deafness, Hyperlipidemia, Hypertension, Myocardial Infarction (VA), Osteoarthritis (OA), Pneumonia Additional Past Medical History / Comment(s): Brain CA (30 years ago) in remission. 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 Mother Additional Family Medical History / Comment(s): Mother had a bad heart. General Exam - General Exam Comments Initial Comments: GENERAL: Patient is well-developed and well-nourished. Patient is nontoxic and well- hydrated and is in mild distress. ENT: Neck is soft and supple. No significant lymphadenopathy is noted. Oropharynx is clear. Moist mucous membranes. Neck has full range of motion without eliciting any pain. EYES: The sclera were anicteric and conjunctiva were pink and moist. Extraocular movements were intact and pupils were equal round and reactive to light. Eye lids were unremarkable. PULMONARY: Patient has diminished breath sounds on the left. Patient is tachypneic at about 22 breaths per minute CARDIOVASCULAR: Patient is tachycardic at 135 beats a minute ABDOMEN: Soft and nontender with normal bowel sounds. SKIN: Skin is clear with no lesions or rashes and otherwise unremarkable. NEUROLOGIC: Patient is alert and oriented x3. Cranial nerves II through XII are grossly intact. Motor and sensory are also intact. Normal speech, volume and content. Symmetrical smile. MUSCULOSKELETAL: Normal extremities with adequate strength and full range of motion. Patient's left foot a necrotic area as well as some warmth and swelling. LYMPHATICS: No significant lymphadenopathy is noted PSYCHIATRIC: Normal psychiatric evaluation. Course Vital Signs 02/09/23 02/09/23 02/09/23 13:52 14:55 15:25 Temperature 102.8 F H Pulse Rate 137 H 128 H 113 H Respiratory 22 28 H 20 Rate Blood Pressure 145/86 144/71 127/81 O2 Sat by Pulse 93 L 97 97 Oximetry 02/09/23 17:04 Temperature 101.0 F H Pulse Rate 96 Respiratory 18 Rate Blood Pressure 97/86 O2 Sat by Pulse 94 L Oximetry Medical Decision Making - Medical Decision Making EKG is interpreted by myself that shows a junctional tachycardia at a rate of 1 30 bpm GA interval 86 QRS is under 24 QT interval 396 QTC is 473. Patient does have some ST segment depression in precordial leads V3 through V6 Was pt. sent in by a medical professional or institution (Dr. PA, HELP DESK SUPPORT SPECIALIST, urgent care, hospital, or fci...) When possible be specific @ -Patient was sent in by his home nursing Did you speak to anyone other than the patient for history (EMS, parent, family, police, friend...)? What history was obtained from this source @ -No Did you review nursing and triage notes (agree or disagree)? Why? @ -I reviewed and agree with nursing and triage notes Were old charts reviewed (outside hosp., previous admission, EMS record, old EKG, old radiological studies, urgent care reports/EKG's, fci records)? Report findings @ -Reviewed prior charts from prior labwork on this patient Differential Diagnosis (chest pain, altered mental status, abdominal pain women, abdominal pain men, vaginal bleeding, weakness, fever, dyspnea, syncope, headache, dizziness, GI bleed, back pain, seizure, CVA, palpatations, mental health, musculoskeletal)? @ -Differential Fever: Pneumonia, viral URI, endocarditis, osteomyelitis, myocarditis, pericarditis, otitis, sinusitis, peritonsillar Abscess, retropharyngeal Abscess, epiglottitis, peritonitis, appendicitis, Yancy cystitis, diverticulitis, hepatitis, colitis, UTI, pyelonephritis, prostatitis, epididymitis, meningitis, encephalitis, pulmonary embolism, CVA, thyroid storm, pancreatitis, adrenal crisis, cavernous sinus thrombosis, this is not meant to be an all-inclusive list. EKG interpreted by me (3pts min.). @ -As above X-rays interpreted by me (1pt min.). @ -X-ray of the foot shows swollen soft tissue as well as erosion of the bone at the fifth metatarsal consistent with vasculitis CT interpreted by me (1pt min.). @ -None done U/S interpreted by me (1pt. min.). @ -None done What testing was considered but not performed or refused? (CT, X-rays, U/S, labs)? Why? @ -None What meds were considered but not given or refused? Why? @ -None Did you discuss the management of the patient with other professionals (professionals i.e. , PA, HELP DESK SUPPORT SPECIALIST, lab, RT, psych nurse, social science research assistant, conveyor operator, teacher, compliance officer, rn case manager)? Give summary @ -I spoke with some physicians and they agreed to admit the patient admitted the patient I wrote admitting orders Was smoking cessation discussed for >3mins.? @ -No Was critical care preformed (if so, how long)? @ -35 minutes Were there social determinants of health that impacted care today? How? (Homelessness, low income, unemployed, alcoholism, drug addiction, transportation, low edu. Level, literacy, decrease access to med. care, [facility], rehab)? @ -No Was there de-escalation of care discussed even if they declined (Discuss DNR or withdrawal of care, Hospice)? DNR status @ -No What co-morbidities impacted this encounter? (DM, HTN, Smoking, COPD, CAD, Cancer, CVA, ARF, Chemo, Hep., AIDS, mental health diagnosis, sleep apnea, morbid obesity)? @ -None Was patient admitted / discharged? Hospital course, mention meds given and route, prescriptions, significant lab abnormalities, going to OR and other pertinent info. @ -Patient has a wound that is very malodorous and appears infected is necrotic area in the ulceration. X-ray confirms osteomyelitis. Patient has a white count. Patient was started on antibiotics immediately. I spoke with some physicians he agreed to admit the patient I admitted the patient wrote admitting orders Undiagnosed new problem with uncertain prognosis? @ -No Drug Therapy requiring intensive monitoring for toxicity (Heparin, Nitro, Insulin, Cardizem)? @ -No Were any procedures done? @ -No Diagnosis/symptom? @ -Osteomyelitis fifth metatarsal Acute, or Chronic, or Acute on Chronic? @ -Acute Uncomplicated (without systemic symptoms) or Complicated (systemic symptoms)? @ -Complicated Side effects of treatment? @ -No Exacerbation, Progression, or Severe Exacerbation? @ -No Poses a threat to life or bodily function? How? (Chest pain, [place], [place], pneumonia, PE, COPD, DKA, ARF, appy, cholecystitis, CVA, Diverticulitis, Homicidal, Suicidal, threat to staff... and all critical care pts) @ -Yes this can lead to end organ dysfunction sepsis Diagnosis/symptom? @ -Sepsis Acute, or Chronic, or Acute on Chronic? @ -Acute Uncomplicated (without systemic symptoms) or Complicated (systemic symptoms)? @ -Complicated Side effects of treatment? @ -none Exacerbation, Progression, or Severe Exacerbation] @ -no Poses a threat to life or bodily function? @ -Yes this could lead to end organ dysfunction - Lab Data Result diagrams: 02/09/23 14:42 02/09/23 14:42 Lab Results 02/09/23 02/09/23 02/09/23 Range/Units 13:52 14:40 14:42 WBC 16.9 H (3.8-10.6) k/uL RBC 4.15 L (4.30-5.90) m/uL Hgb 12.6 L (13.0-17.5) gm/dL Hct 38.8 L (39.0-53.0) % MCV 93.6 (80.0-100.0) fL MCH 30.4 (25.0-35.0) pg MCHC 32.5 (31.0-37.0) g/dL RDW 13.6 (11.5-15.5) % Plt Count 268 (150-450) k/uL MPV 7.8 Neutrophils % 95 % Lymphocytes % 2 % Monocytes % 2 % Eosinophils % 1 % Basophils % 0 % Neutrophils # 16.0 H (1.3-7.7) k/uL Lymphocytes # 0.3 L (1.0-4.8) k/uL Monocytes # 0.3 (0-1.0) k/uL Eosinophils # 0.1 (0-0.7) k/uL Basophils # 0.0 (0-0.2) k/uL PT (10.0-12.5) sec INR (<1.2) APTT (22.0-30.0) sec Sodium (137-145) mmol/L Potassium (3.5-5.1) mmol/L Chloride (98-107) mmol/L Carbon Dioxide (22-30) mmol/L Anion Gap mmol/L BUN (9-20) mg/dL Creatinine (0.66-1.25) mg/dL Est GFR (CKD-EPI)AfAm (>60 ml/min/1.73 sqM) Est GFR (CKD-EPI)NonAf (>60 ml/min/1.73 sqM) Glucose (74-99) mg/dL POC Glucose (mg/dL) 274 H (70-110) mg/dL POC Glu [employer] Clerk ID Sarah Lopez Plasma Lactic Acid Anselmo (0.7-2.0) mmol/L Calcium (8.4-10.2) mg/dL Total Bilirubin (0.2-1.3) mg/dL AST (17-59) U/L ALT (4-49) U/L Alkaline Phosphatase (38-126) U/L Troponin I (0.000-0.034) ng/mL Total Protein (6.3-8.2) g/dL Albumin (3.5-5.0) g/dL Urine Color Yellow Urine Appearance Clear (Clear) Urine pH 6.0 (5.0-8.0) Ur Specific [place] 1.025 (1.001-1.035) Urine Protein 3+ H (Negative) Urine Glucose (UA) Trace (Negative) Urine Ketones Negative (Negative) Urine Blood Small (Negative) Urine Nitrite Negative (Negative) Urine Bilirubin Negative (Negative) Urine Urobilinogen <2.0 (<2.0) mg/dL Ur Leukocyte Esterase Negative (Negative) Urine RBC 6 H (0-5) /hpf Urine WBC 1 (0-5) /hpf Hyaline Casts 4 H (0-2) /lpf Urine Mucus Rare H (None) /hpf Influenza Type A (PCR) (Not Detectd) Influenza Type B (PCR) (Not Detectd) RSV (PCR) (Not Detectd) SARS-CoV-2 (PCR) (Not Detectd) 02/09/23 02/09/23 02/09/23 Range/Units 14:42 14:42 14:42 WBC (3.8-10.6) k/uL RBC (4.30-5.90) m/uL Hgb (13.0-17.5) gm/dL Hct (39.0-53.0) % MCV (80.0-100.0) fL MCH (25.0-35.0) pg MCHC (31.0-37.0) g/dL RDW (11.5-15.5) % Plt Count (150-450) k/uL MPV Neutrophils % % Lymphocytes % % Monocytes % % Eosinophils % % Basophils % % Neutrophils # (1.3-7.7) k/uL Lymphocytes # (1.0-4.8) k/uL Monocytes # (0-1.0) k/uL Eosinophils # (0-0.7) k/uL Basophils # (0-0.2) k/uL PT 11.1 (10.0-12.5) sec INR 1.0 (<1.2) APTT 23.9 (22.0-30.0) sec Sodium 139 (137-145) mmol/L Potassium 4.4 (3.5-5.1) mmol/L Chloride 100 (98-107) mmol/L Carbon Dioxide 26 (22-30) mmol/L Anion Gap 13 mmol/L BUN 35 H (9-20) mg/dL Creatinine 1.23 (0.66-1.25) mg/dL Est GFR (CKD-EPI)AfAm 71 (>60 ml/min/1.73 sqM) Est GFR (CKD-EPI)NonAf 62 (>60 ml/min/1.73 sqM) Glucose 255 H (74-99) mg/dL POC Glucose (mg/dL) (70-110) mg/dL POC Glu [employer] Clerk ID Plasma Lactic Acid Anselmo 1.8 (0.7-2.0) mmol/L Calcium 9.2 (8.4-10.2) mg/dL Total Bilirubin 0.9 (0.2-1.3) mg/dL AST 24 (17-59) U/L ALT 27 (4-49) U/L Alkaline Phosphatase 102 (38-126) U/L Troponin I (0.000-0.034) ng/mL Total Protein 7.1 (6.3-8.2) g/dL Albumin 3.8 (3.5-5.0) g/dL Urine Color Urine Appearance (Clear) Urine pH (5.0-8.0) Ur Specific [place] (1.001-1.035) Urine Protein (Negative) Urine Glucose (UA) (Negative) Urine Ketones (Negative) Urine Blood (Negative) Urine Nitrite (Negative) Urine Bilirubin (Negative) Urine Urobilinogen (<2.0) mg/dL Ur Leukocyte Esterase (Negative) Urine RBC (0-5) /hpf Urine WBC (0-5) /hpf Hyaline Casts (0-2) /lpf Urine Mucus (None) /hpf Influenza Type A (PCR) (Not Detectd) Influenza Type B (PCR) (Not Detectd) RSV (PCR) (Not Detectd) SARS-CoV-2 (PCR) (Not Detectd) 02/09/23 02/09/23 Range/Units 14:42 15:41 WBC (3.8-10.6) k/uL RBC (4.30-5.90) m/uL Hgb (13.0-17.5) gm/dL Hct (39.0-53.0) % MCV (80.0-100.0) fL MCH (25.0-35.0) pg MCHC (31.0-37.0) g/dL RDW (11.5-15.5) % Plt Count (150-450) k/uL MPV Neutrophils % % Lymphocytes % % Monocytes % % Eosinophils % % Basophils % % Neutrophils # (1.3-7.7) k/uL Lymphocytes # (1.0-4.8) k/uL Monocytes # (0-1.0) k/uL Eosinophils # (0-0.7) k/uL Basophils # (0-0.2) k/uL PT (10.0-12.5) sec INR (<1.2) APTT (22.0-30.0) sec Sodium (137-145) mmol/L Potassium (3.5-5.1) mmol/L Chloride (98-107) mmol/L Carbon Dioxide (22-30) mmol/L Anion Gap mmol/L BUN (9-20) mg/dL Creatinine (0.66-1.25) mg/dL Est GFR (CKD-EPI)AfAm (>60 ml/min/1.73 sqM) Est GFR (CKD-EPI)NonAf (>60 ml/min/1.73 sqM) Glucose (74-99) mg/dL POC Glucose (mg/dL) (70-110) mg/dL POC Glu Airport Clerk ID Plasma Lactic Acid Anselmo (0.7-2.0) mmol/L Calcium (8.4-10.2) mg/dL Total Bilirubin (0.2-1.3) mg/dL AST (17-59) U/L ALT (4-49) U/L Alkaline Phosphatase (38-126) U/L Troponin I 0.072 H* (0.000-0.034) ng/mL Total Protein (6.3-8.2) g/dL Albumin (3.5-5.0) g/dL Urine Color Urine Appearance (Clear) Urine pH (5.0-8.0) Ur Specific [place] (1.001-1.035) Urine Protein (Negative) Urine Glucose (UA) (Negative) Urine Ketones (Negative) Urine Blood (Negative) Urine Nitrite (Negative) Urine Bilirubin (Negative) Urine Urobilinogen (<2.0) mg/dL Ur Leukocyte Esterase (Negative) Urine RBC (0-5) /hpf Urine WBC (0-5) /hpf Hyaline Casts (0-2) /lpf Urine Mucus (None) /hpf Influenza Type A (PCR) Not Detected (Not Detectd) Influenza Type B (PCR) Not Detected (Not Detectd) RSV (PCR) Not Detected (Not Detectd) SARS-CoV-2 (PCR) Not Detected (Not Detectd) Disposition Clinical Impression: Sepsis, Osteomyelitis Disposition: ADMITTED IP TO THIS HOSP Referrals: Connor Nicholson MD [Primary Care Provider] - 1-2 days Time of Disposition: 17:57
[2023-02-09] MEDS ORDERED: ACETAMINOPHEN IV (For NPO) 1,000 MG in EMPTY BAG 1 BAG IVPB STA (14:55)
[2023-02-09 14:57] LABS: Prothrombin Time 11.1 sec (10.0-12.5)
[2023-02-09 14:58] LABS: Partial Thromboplastin Time 23.9 sec (22.0-30.0)
[2023-02-09 15:01] LABS: ALT 27 U/L (4-49); AST 24 U/L (17-59); African American GFR (CKD) 71 (>60 ml/min/1.73 sqM); Albumin 3.8 g/dL (3.5-5.0); Alkaline Phosphatase 102 U/L (38-126); Anion Gap 13 mmol/L; Blood Urea Nitrogen 35 mg/dL (9-20); Calcium 9.2 mg/dL (8.4-10.2); Carbon Dioxide 26 mmol/L (22-30); Chloride 100 mmol/L (98-107); Glucose 255 mg/dL (74-99); Non-African American GFR(CKD) 62 (>60 ml/min/1.73 sqM); Potassium 4.4 mmol/L (3.5-5.1); Sodium 139 mmol/L (137-145); Total Bilirubin 0.9 mg/dL (0.2-1.3); Total Protein 7.1 g/dL (6.3-8.2)
[2023-02-09] MEDS ORDERED: LORazepam 2 MG/ML INJ IV STA (15:10)
[2023-02-09 15:20] LABS: Appearance,Urine Clear (Clear); Color,Urine Yellow; Specific Gravity,Urine 1.025 (1.001-1.035)
[2023-02-09 15:21] LABS: Bilirubin,Urine Negative (Negative); Blood,Urine Small (Negative); Glucose,Urine (UA) Trace (Negative); Ketones,Urine Negative (Negative); Leukocyte Esterase,Urine Negative (Negative); Nitrite,Urine Negative (Negative); Protein,Urine 3+ (Negative); Urobilinogen,Urine <2.0 mg/dL (<2.0)
--- NOTE | 2023-02-09 15:24 | XR ---
EXAMINATION TYPE: XR chest 1V DATE OF EXAM: 02/09/2023 COMPARISON: 02/01/2023 INDICATION: Fever vomiting TECHNIQUE: Single frontal view of the chest is obtained. FINDINGS: The heart size is prominent. This appears similar to comparison The pulmonary vasculature is normal. The lungs are clear. IMPRESSION: 1. Mild cardiomegaly
[2023-02-09 15:38] LABS: Hyaline Casts,Urine 4 /lpf (0-2); Mucus,Urine Rare /hpf; RBC,Urine 6 /hpf (0-5); WBC,Urine 1 /hpf (0-5)
--- NOTE | 2023-02-09 17:09 | XR ---
EXAMINATION TYPE: XR foot complete LT DATE OF EXAM: 02/09/2023 5:03 PM CLINICAL INDICATION:Male, 67 years old with history of Osteomyelitis; [facility] COMPARISON: 02/03/2023 TECHNIQUE: XR foot complete LT examined in the AP, oblique, and lateral projections. FINDINGS: Wound near the fifth digit metatarsal phalangeal joint with septations gas. There may be osseous eros ion of the distal metatarsal tarsal seen on a couple views. No evidence of fracture. There is soft ti ssue swelling. Multifocal joint space narrowing with osteophyte formation. IMPRESSION: 1. Soft tissue swelling throughout the foot with wound near the fifth digit metatarsal phalangeal murray int. Suggestion of osseous erosion of the fifth metatarsal head which suggests osteomyelitis. 2. Multifocal osteoarthrosis changes.
[2023-02-09] MEDS ORDERED: SODIUM CHLORIDE 0.9% 500 ML 500 ML IV ONE (17:25)
[2023-02-09] MEDS ORDERED: ACETAMINOPHEN TAB 500 MG TAB PO ONE (19:15)
[2023-02-09] MEDS: PIPERACILLIN-TAZOBACTAM 3.375 GM in SODIUM CHLORIDE 0.9% 100 ML IVPB SCH (23:22)
[2023-02-10] MEDS ORDERED: ACETAMINOPHEN TAB 325 MG TAB PO PRN (03:46)
--- NOTE | 2023-02-10 03:46 | P.HPIM ---
History of Present Illness H&P Date: 02/09/23 Chief Complaint: Diabetic foot ulcer 67-year-old male with diabetes mellitus, hypertension, congestive heart failure left ventricular ejection fraction 25% Patient was recently hospitalized and treated for acute CHF exacerbation he was discharged about a week ago coming back today reporting worsening pain and foul- smelling drainage from his left diabetic foot ulcer, this has been going on for about 6 weeks now however his son son today and thought that the wound looks w orse with very foul-smelling drainage and decided to bring him to the ER , they have a visiting nurse who evaluated him and found that he was febrile and recommended that they go to the ER Patient denies otherwise any chest pain or trouble breathing denies any upper respiratory infection symptoms denies any abdominal pain nausea vomiting or diarrhea denies any GI bleeding. Patient denies tobacco smoking heavy alcohol review of systems Pertinent positives as noted in HPI. All other systems were reviewed and are negative on exam Constitutional: No acute distress, conversant, pleasant Eyes: Anicteric sclerae, moist conjunctiva, Pupils equal round reactive to light ENMT: NC/AT Oropharynx clear, no erythema, or exudates Neck: Supple, no masses, or JVD No carotid bruits No thyromegaly Lungs: Clear to auscultation Clear to percussion Normal respiratory effort, no accessory muscle use Cardiovascular: Heart regular in rate and rhythm, No murmurs, gallops, or rubs +2 bilateral peripheral edema, left worse than right Abdominal: Soft Nontender, no guarding, rebound or rigidity Abdomen moving with respiration Normoactive bowel sounds No hepatomegaly, No splenomegaly No palpable mass No abdominal wall hernia noted Skin: Necrotic ulceration over the left lateral foot with ulceration around the base of the fifth metatarsophalangeal joint, swelling with warmth to the touch Extremities: No digital cyanosis No clubbing Pedal pulses difficult to assess due to leg edema symmetrical capillary refill immediate Radial pulses intact and symmetrical No calf tenderness Psychiatric: Alert and oriented to person, place and time Neuro Muscles Strength 5/5 in bilateral upper extremity 3/5 bilateral lower extremities Sensation to light touch grossly present throughout Cranial nerves II-XII grossly intact Lymphatics: no palpable cervical or supraclavicular lymph nodes Past Medical History Past Medical History: Cancer, Heart Failure, Dementia, Diabetes Mellitus, GERD/Reflux, Hearing Disorder / Deafness, Hyperlipidemia, Hypertension, Myocardial Infarction ([place]), Osteoarthritis (OA), Pneumonia Additional Past Medical History / Comment(s): Brain CA (30 years ago) in remission. 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 Mother Additional Family Medical History / Comment(s): Mother had a bad heart. Medications and Allergies Home Medications Medication Instructions Recorded Confirmed Type Aspirin EC [Ecotrin Low Dose] 81 mg PO DAILY@0800 01/12/19 02/09/23 History Atorvastatin [Lipitor] 80 mg PO HS@199901/12/19 02/09/23 History Clopidogrel Bisulfate [Plavix] 75 mg PO DAILY@0800 07/28/21 02/09/23 History Ferrous Sulfate [Iron (65 MG 325 mg PO DAILY@0800 07/28/21 02/09/23 History Elemental)] Ipratropium-Albuterol Nebulize 3 ml INHALATION RT-QID PRN 07/28/21 02/09/23 History [Duoneb 0.5 mg-3 mg/3 ml Soln] Famotidine [Pepcid] 20 mg PO BID@0800,199903/18/22 02/09/23 History Dulaglutide [Trulicity] 1.5 mg SQ TH 04/01/22 02/09/23 History Insulin Aspart (Niacinamide) 25 units SQ BID 04/01/22 02/09/23 History [Fiasp 100 Unit/ml Flextouch Pen] Insulin Glargine,Hum.rec.anlog 75 units SQ HS 04/01/22 02/09/23 History [Basaglar Kwikpen U-100] Topiramate [Topamax] 25 mg PO HS@199904/01/22 02/09/23 History Acetaminophen [Tylenol] 650 mg PO QID PRN 04/22/22 02/09/23 History Albuterol Sulfate [Albuterol 1 - 2 puff INHALATION RT-Q4H PRN 04/22/22 02/09/23 History Sulfate Hfa] Dicyclomine 10mg/5ml Oral Solution 10 mg PO TID@0800,1700,199907/06/22 02/09/23 History Isosorbide Mononitrate ER [Imdur] 30 mg PO DAILY@0800 07/06/22 02/09/23 History Lactulose [Cephulac] 20 gm PO DAILY@0800 10/15/22 02/09/23 History traMADol HCL 50 mg PO Q6H 10/15/22 02/09/23 History Nitroglycerin Sl Tabs [Nitrostat] 0.4 mg SL Q5M PRN 10/20/22 02/09/23 History Metoprolol Tartrate [Lopressor] 12.5 mg PO BID@0800,199912/08/22 02/09/23 History Sucralfate [Sucralfate Oral Susp] 1 gm PO ACHS@08,12,17,20 12/08/22 02/09/23 History Collagenase [Santyl Ointment] 1 applic TOPICAL DAILY 02/01/23 02/09/23 History Furosemide [Lasix] 40 mg PO TID #0 02/03/23 02/09/23 Rx Losartan [Cozaar] 12.5 mg PO DAILY #0 tab 02/03/23 02/09/23 Rx Allergies Allergy/AdvReac Type Severity Reaction Status Date / Time furosemide [From Lasix] AdvReac Unknown Verified 02/09/23 13:59 sacubitril [From Entresto] AdvReac made him Verified 02/09/23 13:59 hypotensive valsartan [From Entresto] AdvReac made him Verified 02/09/23 13:59 hypotensive Physical Exam Vitals: Vital Signs Temp Pulse Resp BP Pulse Ox 02/10/23 02:33 77 18 104/63 99 02/10/23 02:00 16 02/09/23 22:54 57 L 16 95/55 99 02/09/23 21:35 66 16 99/55 100 02/09/23 20:00 97.6 F 73 16 100/56 99 02/09/23 19:00 99.8 F H 77 18 99/54 02/09/23 18:42 80 18 105/57 96 02/09/23 17:45 100.0 F H 89 18 110/56 97 02/09/23 17:04 101.0 F H 96 18 97/86 94 L 02/09/23 15:25 113 H 20 127/81 97 02/09/23 14:55 128 H 28 H 144/71 97 02/09/23 13:52 102.8 F H 137 H 22 145/86 93 L Intake and Output 02/09/23 02/09/23 02/10/23 14:59 22:59 06:59 Other: Weight 122.47 kg Results CBC & Chem 7: 02/09/23 14:42 02/09/23 14:42 Labs: Abnormal Lab Results - Last 24 Hours (Table) 02/09/23 02/09/23 02/09/23 Range/Units 13:52 14:40 14:42 WBC 16.9 H (3.8-10.6) k/uL RBC 4.15 L (4.30-5.90) m/uL Hgb 12.6 L (13.0-17.5) gm/dL Hct 38.8 L (39.0-53.0) % Neutrophils # 16.0 H (1.3-7.7) k/uL Lymphocytes # 0.3 L (1.0-4.8) k/uL BUN (9-20) mg/dL Glucose (74-99) mg/dL POC Glucose (mg/dL) 274 H (70-110) mg/dL Troponin I (0.000-0.034) ng/mL Urine Protein 3+ H (Negative) Urine RBC 6 H (0-5) /hpf Hyaline Casts 4 H (0-2) /lpf Urine Mucus Rare H (None) /hpf 02/09/23 02/09/23 Range/Units 14:42 14:42 WBC (3.8-10.6) k/uL RBC (4.30-5.90) m/uL Hgb (13.0-17.5) gm/dL Hct (39.0-53.0) % Neutrophils # (1.3-7.7) k/uL Lymphocytes # (1.0-4.8) k/uL BUN 35 H (9-20) mg/dL Glucose 255 H (74-99) mg/dL POC Glucose (mg/dL) (70-110) mg/dL Troponin I 0.072 H* (0.000-0.034) ng/mL Urine Protein (Negative) Urine RBC (0-5) /hpf Hyaline Casts (0-2) /lpf Urine Mucus (None) /hpf Assessment and Plan Assessment: 67-year-old male recently hospitalized for congestive heart failure discharge about a week ago coming back with increased foul-smelling drainage out of his left foot wound I discussed case with the ED doctor accepted the admission for sepsis secondary to diabetic foot ulcer and osteomyelitis with anticipated length of stay more than 2 midnights Sepsis secondary to underlying osteomyelitis from left diabetic foot ulcer Follow-up cultures Surgery consult Tylenol for fever Vancomycin dosing by pharmacy Zosyn 3.4 g IV piggyback every 8 hours Pain control with opiates IV fluid hydration normal saline 75 mL per hour Zofran when necessary for nausea vomiting leukocytisis WBC 16.9 Temp 102 febrile foot xray suggestive of possible osteomyelitis check ESR, CRP Hb 12.6 denies any bleeding renal function unremarkable Na 139 , K 4.4 BUN 35 , cr 1.23 acute respi viral panel negative for covid influenza and rsv chronic conditions CAD , Systolic CHF with LVEF 25% resume cardiac meds DM insulin sliding scale full code DVT PPX heparin sc tid
[2023-02-10] MEDS ORDERED: DEXTROSE 50% SYRINGE 50 ML IVP PRN ×2 (03:47)
[2023-02-10 05:44] LABS: Glucose,Whole Blood 146 mg/dL (70-110)
[2023-02-10] MEDS: VANCOMYCIN 2,000 MG in SODIUM CHLORIDE 0.9% 500 ML 500 ML IVPB SCH ×2 (05:55→18:03)
[2023-02-10 06:25] LABS: African American GFR (CKD) 58 (>60 ml/min/1.73 sqM); Non-African American GFR(CKD) 50 (>60 ml/min/1.73 sqM)
[2023-02-10] MEDS: INSULIN ASPART (NovoLOG) 100 UNIT/ML VIAL SQ SCH ×4 (07:57→21:36)
[2023-02-10] MEDS: HEPARIN SODIUM,PORCINE 5,000 UNIT/ML 1 ML VIAL SQ SCH ×3 (08:10→23:20)
[2023-02-10] MEDS: ISOSORBIDE MONONITRATE ER 30 MG TAB.ER.24H PO SCH (08:31)
[2023-02-10] MEDS: ASPIRIN 81 MG PO SCH (08:32)
[2023-02-10] MEDS: CLOPIDOGREL 75 MG TAB PO SCH (08:32)
[2023-02-10] MEDS: METOPROLOL TARTRATE 12.5 MG TAB PO SCH ×2 (08:32)
[2023-02-10] MEDS: PIPERACILLIN-TAZOBACTAM 3.375 GM in SODIUM CHLORIDE 0.9% 100 ML IVPB SCH ×2 (08:36→23:20)
[2023-02-10] MEDS: IPRATROPIUM-ALBUTEROL 3 ML NEB INHALATION PRN ×4 (08:37→22:51)
[2023-02-10] MEDS ORDERED: LOSARTAN 25 MG TAB PO SCH (09:00)
[2023-02-10 09:19] LABS: BUN/Creat Ratio 23.69 Ratio (12.00-20.00); Blood Urea Nitrogen 37.9 mg/dL (9.0-27.0); Calcium 8.7 mg/dL (8.7-10.3); Carbon Dioxide 25.2 mmol/L (21.6-31.8); Chloride 103 mmol/L (96-109); Glucose 145 mg/dL (70-110); Potassium 4.6 mmol/L (3.5-5.5); Sodium 142 mmol/L (135-145)
[2023-02-10 10:44] LABS: Basophils # (A) 0.04 X 10*3/uL (0.00-0.10); Basophils % (A) 0.3 %; Eosinophils # (A) 0.03 X 10*3/uL (0.04-0.35); Eosinophils % (A) 0.3 %; HCT 35.1 % (39.6-50.0); HGB 11.1 d/dL (13.0-17.0); Lymphocytes # (A) 0.37 X 10*3/uL (0.90-5.00); Lymphocytes % (A) 3.2 %; MCH 29.6 pg (27.0-32.0); MCHC 31.6 d/dL (32.0-37.0); MCV 93.6 FL (80.0-97.0); Mean Platelet Volume 11.1 FL (9.5-12.2); Monocytes # (A) 0.43 X 10*3/uL (0.20-1.00); Monocytes % (A) 3.8 %; NRBC Per 100 WBC 0 X 10*3/uL (0.00-0.01); Neutrophils # (A) 10.54 X 10*3/uL (1.80-7.70); Platelet Count 216 X 10*3/uL (140-440); RBC 3.75 X 10*6/uL (4.40-5.60); RBC Morphology Normal (Normal); RDW 13.8 % (11.5-14.5); WBC 11.46 X 10*3/uL (4.50-10.00)
--- NOTE | 2023-02-10 13:16 | P.PN ---
Subjective Progress Note Date: 02/10/23 Hospital Course: 67-year-old male with history of CAD status post CABG, peripheral arterial disease, systolic heart failure, insulin-dependent diabetes resenting today with worsening left foot wound. He was recently hospitalized and discharged after acute CHF exacerbation. At the time of discharge for x-rays did not show any evidence of bone involvement. However, recently his son noted a foul-smelling drainage, and was sent over to get evaluated. In the ER patient was febrile and tachycardic. WBC was 16.9, creatinine 1.23, respiratory viral panel negative. Foot x-ray shows fifth metatarsal head osteomyelitis. EKG showed likely sinus rhythm with right bundle branch block, chest x-ray did not show any acute process. Patient admitted for acute left foot osteomyelitis, ID and vascular surgery consulted. Currently on vancomycin and Unasyn. Subjective: Patient seen and examined at bedside. No acute events overnight. Pertinent positives and negatives as discussed above, a complete review of systems was performed and all other systems are negative. Vitals Signs Reviewed. General: nontoxic, no distress, appears at stated age, morbidly obese Derm: warm, dry, necrotic ulceration over left lateral foot with surrounding erythema and edema Head: atraumatic, normocephalic, symmetric Eyes: EOMI, no lid lag, anicteric sclera Mouth: no lip lesion, mucus membranes moist Cardiovascular: S1S2 reg, no murmur Lungs: CTA bilateral, no rhonchi, no rales , no accessory muscle use Abdominal: soft, nontender to palpation, no guarding, no appreciable organomegaly Ext: no gross muscle atrophy, 2+ peripheral edema lower extremity, worse on the left, no contractures Neuro: CN II-XI grossly intact, no focal neuro deficits Psych: Alert, oriented, appropriate affect Data Reviewed Today: Pertinent Labs: WBC 11.46, hemoglobin 11.1, creatinine 1.6 Imaging: No new imaging Assessment and Plan: Active: Sepsis secondary to left foot osteomyelitis Insulin-dependent diabetes Peripheral arterial disease -Blood cultures and wound cultures pending -ID following -On IV vancomycin per pharmacy dosing, monitor renal function for toxicity -Also on IV Unasyn 3 g every 6 hours -Vascular surgery also consulted -Patient has had recent angioplasty in the left leg -Patient was given 1-1/2 L of normal saline in the ED, hold diuretics for now -Continue home glargine as well as sliding scale insulin Acute kidney injury -Hold losartan for now -Acute kidney injury possibly the setting of low normal blood pressure as well as vancomycin and Zosyn given earlier -Monitor I's and O's, bladder scan once Elevated troponin, nonischemic Chronic: CAD status post CABG Systolic CHF, not in exacerbation DVT ppx: Subcu heparin Code status: Full code Anticipated discharge place: Pending clinical course Anticipated discharge time pending clinical course Objective - Vital Signs Vital signs: Vital Signs Temp 97.6 F 02/10/23 05:59 Pulse 92 02/10/23 13:03 Resp 18 02/10/23 08:36 BP 97/60 02/10/23 08:36 Pulse Ox 95 02/10/23 07:01 FiO2 Intake & Output 02/09/23 02/10/23 02/10/23 18:59 06:59 18:59 Weight 122.47 kg - Labs CBC & Chem 7: 02/10/23 05:26 02/10/23 05:26 Labs: Abnormal Lab Results - Last 24 Hours (Table) 02/09/23 02/09/23 02/09/23 Range/Units 13:52 14:40 14:42 WBC 16.9 H (3.8-10.6) k/uL RBC 4.15 L (4.30-5.90) m/uL Hgb 12.6 L (13.0-17.5) gm/dL Hct 38.8 L (39.0-53.0) % MCHC (32.0-37.0) d/dL Neutrophils # 16.0 H (1.3-7.7) k/uL Lymphocytes # 0.3 L (1.0-4.8) k/uL Eosinophils # (0.04-0.35) X 10*3/uL Anion Gap (4.00-12.00) mmol/L BUN (9-20) mg/dL Creatinine (0.66-1.25) mg/dL Est GFR (CKD-EPI) (>=60) BUN/Creatinine Ratio (12.00-20.00) Ratio Glucose (74-99) mg/dL POC Glucose (mg/dL) 274 H (70-110) mg/dL Troponin I (0.000-0.034) ng/mL C-Reactive Protein (0.00-0.80) mg/dL Urine Protein 3+ H (Negative) Urine RBC 6 H (0-5) /hpf Hyaline Casts 4 H (0-2) /lpf Urine Mucus Rare H (None) /hpf 02/09/23 02/09/23 02/10/23 Range/Units 14:42 14:42 05:26 WBC (3.8-10.6) k/uL RBC (4.30-5.90) m/uL Hgb (13.0-17.5) gm/dL Hct (39.0-53.0) % MCHC (32.0-37.0) d/dL Neutrophils # (1.3-7.7) k/uL Lymphocytes # (1.0-4.8) k/uL Eosinophils # (0.04-0.35) X 10*3/uL Anion Gap (4.00-12.00) mmol/L BUN 35 H (9-20) mg/dL Creatinine 1.45 H (0.66-1.25) mg/dL Est GFR (CKD-EPI) (>=60) BUN/Creatinine Ratio (12.00-20.00) Ratio Glucose 255 H (74-99) mg/dL POC Glucose (mg/dL) (70-110) mg/dL Troponin I 0.072 H* (0.000-0.034) ng/mL C-Reactive Protein (0.00-0.80) mg/dL Urine Protein (Negative) Urine RBC (0-5) /hpf Hyaline Casts (0-2) /lpf Urine Mucus (None) /hpf 02/10/23 02/10/23 02/10/23 Range/Units 05:26 05:26 05:42 WBC 11.46 H (3.8-10.6) k/uL RBC 3.75 L (4.30-5.90) m/uL Hgb 11.1 L (13.0-17.5) gm/dL Hct 35.1 L (39.0-53.0) % MCHC 31.6 L (32.0-37.0) d/dL Neutrophils # 10.54 H (1.3-7.7) k/uL Lymphocytes # 0.37 L (1.0-4.8) k/uL Eosinophils # 0.03 L (0.04-0.35) X 10*3/uL Anion Gap 13.80 H (4.00-12.00) mmol/L BUN 37.9 H (9-20) mg/dL Creatinine 1.6 H (0.66-1.25) mg/dL Est GFR (CKD-EPI) 48 L (>=60) BUN/Creatinine Ratio 23.69 H (12.00-20.00) Ratio Glucose 145 H (74-99) mg/dL POC Glucose (mg/dL) 146 H (70-110) mg/dL Troponin I (0.000-0.034) ng/mL C-Reactive Protein 11.60 H (0.00-0.80) mg/dL Urine Protein (Negative) Urine RBC (0-5) /hpf Hyaline Casts (0-2) /lpf Urine Mucus (None) /hpf Microbiology - Last 24 Hours (Table) 02/09/23 14:42 Gram Stain - Preliminary Foot - Left
[2023-02-10 13:44] LABS: Glucose,Whole Blood 209 mg/dL (70-110)
--- NOTE | 2023-02-10 14:28 | P.GSCN ---
History of Present Illness Consult date: 02/10/23 Reason for Consult: Osteomyelitis left foot Requesting physician: Betito Corcoran History of present illness: This is 67-year-old male presenting to the emergency department with a wound to the lateral side of his left fifth toe. He has a past medical history including peripheral arterial disease on aspirin and Plavix, heart failure, dementia, diabetes mellitus, GERD, hyperlipidemia, hypertension, coronary artery disease, and brain cancer. Patient states wound started about 6 weeks ago he had been following for some care however did not feel they were doing anything so he really hasn't been doing any kind of wound care recently. Seems as though the wound was getting worse and there was follow odor he came in for further evaluation. Patient was febrile on admission with a max temp of 102.8. He is currently sitting up in the chair. He is started on Unasyn and vancomycin. He is afebrile today. States he does have lower extremity pain with walking. He has a history of peripheral arterial disease status post stenting with Dr. Flores. Infectious diseases on consult. He currently denies any shortness of breath or chest pain, no abdominal pain, nausea or vomiting. Had x-ray of the left foot that shows osteomyelitis with erosion of the fifth metatarsal head. Patient had lower extremity arterial ultrasound done on 02/02/2023. EDU right 0.9 left 0.7. He underwent balloon angioplasty of the left SFA on 01/20/[address] Flores. Angioplasty and stenting of the right SFA 12/09/[address] Flores Review of Systems A 14 point review systems was completed all pertinent positives and negatives as stated in the HPI. Past Medical History Past Medical History: Cancer, Heart Failure, Dementia, Diabetes Mellitus, GERD/Reflux, Hearing Disorder / Deafness, Hyperlipidemia, Hypertension, Myocardial Infarction ([place]), Osteoarthritis ([place]), Pneumonia Additional Past Medical History / Comment(s): Brain CA (30 years ago) in remission. 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 Mother Additional Family Medical History / Comment(s): Mother had a bad heart. Medications and Allergies Home Medications Medication Instructions Recorded Confirmed Type Aspirin EC [Ecotrin Low Dose] 81 mg PO DAILY@0800 01/12/19 02/09/23 History Atorvastatin [Lipitor] 80 mg PO HS@199901/12/19 02/09/23 History Clopidogrel Bisulfate [Plavix] 75 mg PO DAILY@0800 07/28/21 02/09/23 History Ferrous Sulfate [Iron (65 MG 325 mg PO DAILY@0800 07/28/21 02/09/23 History Elemental)] Ipratropium-Albuterol Nebulize 3 ml INHALATION RT-QID PRN 07/28/21 02/09/23 History [Duoneb 0.5 mg-3 mg/3 ml Soln] Famotidine [Pepcid] 20 mg PO BID@0800,199903/18/22 02/09/23 History Dulaglutide [Trulicity] 1.5 mg SQ TH 04/01/22 02/09/23 History Insulin Aspart (Niacinamide) 25 units SQ BID 04/01/22 02/09/23 History [Fiasp 100 Unit/ml Flextouch Pen] Insulin Glargine,Hum.rec.anlog 75 units SQ 04/01/22 02/09/23 History [Basaglar Kwikpen U-100] Topiramate [Topamax] 25 mg PO HS@199904/01/22 02/09/23 History Acetaminophen [Tylenol] 650 mg PO QID PRN 04/22/22 02/09/23 History Albuterol Sulfate [Albuterol 1 - 2 puff INHALATION RT-Q4H PRN 04/22/22 02/09/23 History Sulfate Hfa] Dicyclomine 10mg/5ml Oral Solution 10 mg PO TID@0800,1700,199907/06/22 02/09/23 History Isosorbide Mononitrate ER [Imdur] 30 mg PO DAILY@0800 07/06/22 02/09/23 History Lactulose [Cephulac] 20 gm PO DAILY@0800 10/15/22 02/09/23 History traMADol HCL 50 mg PO Q6H 10/15/22 02/09/23 History Nitroglycerin Sl Tabs [Nitrostat] 0.4 mg SL Q5M PRN 10/20/22 02/09/23 History Metoprolol Tartrate [Lopressor] 12.5 mg PO BID@0800,199912/08/22 02/09/23 History Sucralfate [Sucralfate Oral Susp] 1 gm PO ACHS@08,12,17,20 12/08/22 02/09/23 History Collagenase [Santyl Ointment] 1 applic TOPICAL DAILY 02/01/23 02/09/23 History Furosemide [Lasix] 40 mg PO TID #0 02/03/23 02/09/23 Rx Losartan [Cozaar] 12.5 mg PO DAILY #0 tab 02/03/23 02/09/23 Rx Allergies Allergy/AdvReac Type Severity Reaction Status Date / Time furosemide [From Lasix] AdvReac Unknown Verified 02/09/23 13:59 sacubitril [From Entresto] AdvReac made him Verified 02/09/23 13:59 hypotensive valsartan [From Entresto] AdvReac made him Verified 02/09/23 13:59 hypotensive Surgical - Exam Vital Signs Temp Pulse Resp BP Pulse Ox 102.8 F H 137 H 22 145/86 93 L 02/09/23 13:52 02/09/23 13:52 02/09/23 13:52 02/09/23 13:52 02/09/23 13:52 General appearance: The patient is alert, oriented, appears in no acute distres s. HET: Head is normocephalic and atraumatic. Pupils are equal and reactive. Neck: Supple. Heart: Regular. Lungs: Equal expansion, normal respiratory effort. Abdomen: Soft, nontender, nondistended. Extremities: Lower extremity swelling. Left foot red, diabetic ulcer to the lateral aspect of left foot with drainage and foul odor. Neurological: No focal deficits. Strength and sensation are grossly intact. Results - Labs 02/10/23 05:26 02/10/23 05:26 Abnormal Lab Results - Last 24 Hours (Table) 02/09/23 02/09/23 02/09/23 Range/Units 13:52 14:40 14:42 WBC 16.9 H (3.8-10.6) k/uL RBC 4.15 L (4.30-5.90) m/uL Hgb 12.6 L (13.0-17.5) gm/dL Hct 38.8 L (39.0-53.0) % MCHC (32.0-37.0) d/dL Neutrophils # 16.0 H (1.3-7.7) k/uL Lymphocytes # 0.3 L (1.0-4.8) k/uL Eosinophils # (0.04-0.35) X 10*3/uL Anion Gap (4.00-12.00) mmol/L BUN (9-20) mg/dL Creatinine (0.66-1.25) mg/dL Est GFR (CKD-EPI) (>=60) BUN/Creatinine Ratio (12.00-20.00) Ratio Glucose (74-99) mg/dL POC Glucose (mg/dL) 274 H (70-110) mg/dL Troponin I (0.000-0.034) ng/mL C-Reactive Protein (0.00-0.80) mg/dL Urine Protein 3+ H (Negative) Urine RBC 6 H (0-5) /hpf Hyaline Casts 4 H (0-2) /lpf Urine Mucus Rare H (None) /hpf 02/09/23 02/09/23 02/10/23 Range/Units 14:42 14:42 05:26 WBC (3.8-10.6) k/uL RBC (4.30-5.90) m/uL Hgb (13.0-17.5) gm/dL Hct (39.0-53.0) % MCHC (32.0-37.0) d/dL Neutrophils # (1.3-7.7) k/uL Lymphocytes # (1.0-4.8) k/uL Eosinophils # (0.04-0.35) X 10*3/uL Anion Gap (4.00-12.00) mmol/L BUN 35 H (9-20) mg/dL Creatinine 1.45 H (0.66-1.25) mg/dL Est GFR (CKD-EPI) (>=60) BUN/Creatinine Ratio (12.00-20.00) Ratio Glucose 255 H (74-99) mg/dL POC Glucose (mg/dL) (70-110) mg/dL Troponin I 0.072 H* (0.000-0.034) ng/mL C-Reactive Protein (0.00-0.80) mg/dL Urine Protein (Negative) Urine RBC (0-5) /hpf Hyaline Casts (0-2) /lpf Urine Mucus (None) /hpf 02/10/23 02/10/23 02/10/23 Range/Units 05:26 05:26 05:42 WBC 11.46 H (3.8-10.6) k/uL RBC 3.75 L (4.30-5.90) m/uL Hgb 11.1 L (13.0-17.5) gm/dL Hct 35.1 L (39.0-53.0) % MCHC 31.6 L (32.0-37.0) d/dL Neutrophils # 10.54 H (1.3-7.7) k/uL Lymphocytes # 0.37 L (1.0-4.8) k/uL Eosinophils # 0.03 L (0.04-0.35) X 10*3/uL Anion Gap 13.80 H (4.00-12.00) mmol/L BUN 37.9 H (9-20) mg/dL Creatinine 1.6 H (0.66-1.25) mg/dL Est GFR (CKD-EPI) 48 L (>=60) BUN/Creatinine Ratio 23.69 H (12.00-20.00) Ratio Glucose 145 H (74-99) mg/dL POC Glucose (mg/dL) 146 H (70-110) mg/dL Troponin I (0.000-0.034) ng/mL C-Reactive Protein 11.60 H (0.00-0.80) mg/dL Urine Protein (Negative) Urine RBC (0-5) /hpf Hyaline Casts (0-2) /lpf Urine Mucus (None) /hpf Microbiology - Last 24 Hours (Table) 02/09/23 14:42 Gram Stain - Preliminary Foot - Left Diabetes panel 02/09/23 02/10/23 02/10/23 Range/Units 14:42 05:26 05:26 Sodium 139 142 (137-145) mmol/L Potassium 4.4 4.6 (3.5-5.1) mmol/L Chloride 100 103 (98-107) mmol/L Carbon Dioxide 26 25.2 (22-30) mmol/L BUN 35 H 37.9 H (9-20) mg/dL Creatinine 1.23 1.45 H 1.6 H (0.66-1.25) mg/dL Glucose 255 H 145 H (74-99) mg/dL Calcium 9.2 8.7 (8.4-10.2) mg/dL AST 24 (17-59) U/L ALT 27 (4-49) U/L Alkaline Phosphatase 102 (38-126) U/L Total Protein 7.1 (6.3-8.2) g/dL Albumin 3.8 (3.5-5.0) g/dL Calcium panel 02/09/23 02/10/23 Range/Units 14:42 05:26 Calcium 9.2 8.7 (8.4-10.2) mg/dL Albumin 3.8 (3.5-5.0) g/dL Pituitary panel 02/09/23 02/10/23 02/10/23 Range/Units 14:42 05:26 05:26 Sodium 139 142 (137-145) mmol/L Potassium 4.4 4.6 (3.5-5.1) mmol/L Chloride 100 103 (98-107) mmol/L Carbon Dioxide 26 25.2 (22-30) mmol/L BUN 35 H 37.9 H (9-20) mg/dL Creatinine 1.23 1.45 H 1.6 H (0.66-1.25) mg/dL Glucose 255 H 145 H (74-99) mg/dL Calcium 9.2 8.7 (8.4-10.2) mg/dL Adrenal panel 02/09/23 02/10/23 02/10/23 Range/Units 14:42 05:26 05:26 Sodium 139 142 (137-145) mmol/L Potassium 4.4 4.6 (3.5-5.1) mmol/L Chloride 100 103 (98-107) mmol/L Carbon Dioxide 26 25.2 (22-30) mmol/L BUN 35 H 37.9 H (9-20) mg/dL Creatinine 1.23 1.45 H 1.6 H (0.66-1.25) mg/dL Glucose 255 H 145 H (74-99) mg/dL Calcium 9.2 8.7 (8.4-10.2) mg/dL Total Bilirubin 0.9 (0.2-1.3) mg/dL AST 24 (17-59) U/L ALT 27 (4-49) U/L Alkaline Phosphatase 102 (38-126) U/L Total Protein 7.1 (6.3-8.2) g/dL Albumin 3.8 (3.5-5.0) g/dL - Imaging Comments: Left foot x-ray report soft tissue swelling throughout the foot with wound near the fifth digit metatarsal phalangeal joint. Suggestion of osseous erosion of the fifth metatarsal head which suggest osteomyelitis. Multifocal osteoarthrosis changes. Assessment and Plan Assessment: 1. Osteomyelitis of left fifth toe 2. History of peripheral arterial disease status post recent angioplasty of left SFA and stenting of right SFA 3. History coronary artery disease 4. Diabetes mellitus 5. Hypertension 6. Hyperlipidemia Plan: 1. Continue antibiotics per recommendations from infectious disease 2. Tentatively plan for left fifth toe amputation Wednesday 3. May continue aspirin and Plavix 4. Heart healthy diet Thank you for this consultation, we will continue to follow. The impression and plan of care has been dictated as directed. Dr. Short I performed a history and examination of this patient, discussed the same with the dictator. I agree with the dictator's note ,documented as a scribe. Any additional findings or plans will be noted.
[2023-02-10 14:38] LABS: Erythrocyte Sedimentation Rate 98 mm/Hr (0-20)
[2023-02-10 15:52] LABS: Glucose,Whole Blood 223 mg/dL (70-110)
[2023-02-10 17:34] LABS: Glucose,Whole Blood 241 mg/dL (70-110)
[2023-02-10] MEDS ORDERED: AMPICILLIN-SULBACTAM 3 GM in SODIUM CHLORIDE 0.9% 100 ML IVPB SCH (18:00)
[2023-02-10] MEDS: SUCRALFATE 1 GM TAB PO SCH ×2 (18:02→21:36)
[2023-02-10] MEDS ORDERED: INSULIN DETEMIR (LEVEMIR) 100 UNIT/ML SYR SQ SCH (21:00)
[2023-02-10 21:16] LABS: Glucose,Whole Blood 206 mg/dL (70-110)
[2023-02-10] MEDS: FAMOTIDINE 20 MG TAB PO SCH (21:36)
[2023-02-10] MEDS: ATORVASTATIN 80 MG TAB PO SCH (21:36)
[2023-02-10] MEDS: TOPIRAMATE 25 MG TAB PO SCH (21:37)
[2023-02-10] MEDS: traMADol 50 MG TAB PO PRN (22:09)
--- NOTE | 2023-02-10 22:54 | P.CONS ---
History of Present Illness - Reason for Consult Consult date: 02/10/23 - History of Present Illness Patient is a 67-year-old male with a past medical history significant for diabetes mellitus hypertension hyperlipidemia [place] history of brain cancer in remission and heart failure did have a history of diabetic foot infection and previous right foot transmetatarsal amputation patient is presenting to [facility] ER concerning for an ulceration to the left foot lateral aspect, that has been going on for the last 6 weeks patient not very clear how it started at the patient has been trying to take care of it by himself however his son noticed the wound has getting worse and did have foul-smelling drainage for the patient was advised to go to the hospital on arrival to the ER the patient did have a fever of 102.8 degrees following any pain complaining of some chills though denies having any headache or URI symptoms no chest pain shortness of breath or cough no nausea vomiting no abdominal pain or diarrhea patient did have diabetic neuropathy denies significant pain to the left foot lateral border wound area patient was febrile tachycardic and mild hypotension white count of 16.9 with a left shift BUN and creatinine is mildly elevated CRP is 11.60 urine was negative influenza RSV and COVID testing was negative patient did have a chest x-ray mild cardiomegaly x-ray of the foot soft tissue swelling throughout the foot with wound near the fifth digit metatarsophalangeal joint suggestive of bony erosion likely osteomyelitis patient was started on vancomycin and Zosyn infectious disease was consulted for further management of antibiotic therapy Past Medical History Past Medical History: Cancer, Heart Failure, Dementia, Diabetes Mellitus, GERD/Reflux, Hearing Disorder / Deafness, Hyperlipidemia, Hypertension, Myocardial Infarction ([place]), Osteoarthritis (OA), Pneumonia Additional Past Medical History / Comment(s): Brain CA (30 years ago) in remission. 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 Mother Additional Family Medical History / Comment(s): Mother had a bad heart. Medications and Allergies Home Medications Medication Instructions Recorded Confirmed Type Aspirin EC [Ecotrin Low Dose] 81 mg PO DAILY@0800 01/12/19 02/09/23 History Atorvastatin [Lipitor] 80 mg PO HS@199901/12/19 02/09/23 History Clopidogrel Bisulfate [Plavix] 75 mg PO DAILY@0800 07/28/21 02/09/23 History Ferrous Sulfate [Iron (65 MG 325 mg PO DAILY@00 07/28/21 02/09/23 History Elemental)] Ipratropium-Albuterol Nebulize 3 ml INHALATION RT-QID PRN 07/28/21 02/09/23 History [Duoneb 0.5 mg-3 mg/3 ml Soln] Famotidine [Pepcid] 20 mg PO BID@0800,199903/18/22 02/09/23 History Dulaglutide [Trulicity] 1.5 mg SQ 04/01/22 02/09/23 History Insulin Aspart (Niacinamide) 25 units SQ BID 04/01/22 02/09/23 History [Fiasp 100 Unit/ml Flextouch Pen] Insulin Glargine,Hum.rec.anlog 75 units SQ HS 04/01/22 02/09/23 History [Basaglar Kwikpen U-100] Topiramate [Topamax] 25 mg PO HS@199904/01/22 02/09/23 History Acetaminophen [Tylenol] 650 mg PO QID PRN 04/22/22 02/09/23 History Albuterol Sulfate [Albuterol 1 - 2 puff INHALATION RT-Q4H PRN 04/22/22 02/09/23 History Sulfate Hfa] Dicyclomine 10mg/5ml Oral Solution 10 mg PO TID@0800,1700,199907/06/22 02/09/23 History Isosorbide Mononitrate ER [Imdur] 30 mg PO DAILY@0800 07/06/22 02/09/23 History Lactulose [Cephulac] 20 gm PO DAILY@0800 10/15/22 02/09/23 History traMADol HCL 50 mg PO Q6H 10/15/22 02/09/23 History Nitroglycerin Sl Tabs [Nitrostat] 0.4 mg SL Q5M PRN 10/20/22 02/09/23 History Metoprolol Tartrate [Lopressor] 12.5 mg PO BID@0800,199912/08/22 02/09/23 History Sucralfate [Sucralfate Oral Susp] 1 gm PO ACHS@08,12,17,20 12/08/22 02/09/23 History Collagenase [Santyl Ointment] 1 applic TOPICAL DAILY 02/01/23 02/09/23 History Furosemide [Lasix] 40 mg PO TID #0 02/03/23 02/09/23 Rx Losartan [Cozaar] 12.5 mg PO DAILY #0 tab 02/03/23 02/09/23 Rx Allergies Allergy/AdvReac Type Severity Reaction Status Date / Time furosemide [From Lasix] AdvReac Unknown Verified 02/09/23 13:59 sacubitril [From Entresto] AdvReac made him Verified 02/09/23 13:59 hypotensive valsartan [From Entresto] AdvReac made him Verified 02/09/23 13:59 hypotensive Physical Exam Vitals: Vital Signs Temp Pulse Resp BP Pulse Ox 02/10/23 08:48 96 02/10/23 08:39 100 02/10/23 08:36 96 18 97/60 02/10/23 07:01 24 115/60 95 02/10/23 05:59 97.6 F 02/10/23 05:00 90 18 117/64 99 02/10/23 02:33 77 18 104/63 99 02/10/23 02:00 16 02/09/23 22:54 57 L 16 95/55 99 02/09/23 21:35 66 16 99/55 100 02/09/23 20:00 97.6 F 73 16 100/56 99 02/09/23 19:00 99.8 F H 77 18 99/54 02/09/23 18:42 80 18 105/57 96 02/09/23 17:45 100.0 F H 89 18 110/56 97 02/09/23 17:04 101.0 F H 96 18 97/86 94 L 02/09/23 15:25 113 H 20 127/81 97 02/09/23 14:55 128 H 28 H 144/71 97 02/09/23 13:52 102.8 F H 137 H 22 145/86 93 L Results CBC & Chem 7: 02/11/23 05:42 02/11/23 05:42 Labs: Abnormal Lab Results - Last 24 Hours (Table) 02/09/23 02/09/23 02/09/23 Range/Units 13:52 14:40 14:42 WBC 16.9 H (3.8-10.6) k/uL RBC 4.15 L (4.30-5.90) m/uL Hgb 12.6 L (13.0-17.5) gm/dL Hct 38.8 L (39.0-53.0) % Neutrophils # 16.0 H (1.3-7.7) k/uL Lymphocytes # 0.3 L (1.0-4.8) k/uL Anion Gap (4.00-12.00) mmol/L BUN (9-20) mg/dL Creatinine (0.66-1.25) mg/dL Est GFR (CKD-EPI) (>=60) BUN/Creatinine Ratio (12.00-20.00) Ratio Glucose (74-99) mg/dL POC Glucose (mg/dL) 274 H (70-110) mg/dL Troponin I (0.000-0.034) ng/mL C-Reactive Protein (0.00-0.80) mg/dL Urine Protein 3+ H (Negative) Urine RBC 6 H (0-5) /hpf Hyaline Casts 4 H (0-2) /lpf Urine Mucus Rare H (None) /hpf 02/09/23 02/09/23 02/10/23 Range/Units 14:42 14:42 05:26 WBC (3.8-10.6) k/uL RBC (4.30-5.90) m/uL Hgb (13.0-17.5) gm/dL Hct (39.0-53.0) % Neutrophils # (1.3-7.7) k/uL Lymphocytes # (1.0-4.8) k/uL Anion Gap (4.00-12.00) mmol/L BUN 35 H (9-20) mg/dL Creatinine 1.45 H (0.66-1.25) mg/dL Est GFR (CKD-EPI) (>=60) BUN/Creatinine Ratio (12.00-20.00) Ratio Glucose 255 H (74-99) mg/dL POC Glucose (mg/dL) (70-110) mg/dL Troponin I 0.072 H* (0.000-0.034) ng/mL C-Reactive Protein (0.00-0.80) mg/dL Urine Protein (Negative) Urine RBC (0-5) /hpf Hyaline Casts (0-2) /lpf Urine Mucus (None) /hpf 02/10/23 02/10/23 Range/Units 05:26 05:42 WBC (3.8-10.6) k/uL RBC (4.30-5.90) m/uL Hgb (13.0-17.5) gm/dL Hct (39.0-53.0) % Neutrophils # (1.3-7.7) k/uL Lymphocytes # (1.0-4.8) k/uL Anion Gap 13.80 H (4.00-12.00) mmol/L BUN 37.9 H (9-20) mg/dL Creatinine 1.6 H (0.66-1.25) mg/dL Est GFR (CKD-EPI) 48 L (>=60) BUN/Creatinine Ratio 23.69 H (12.00-20.00) Ratio Glucose 145 H (74-99) mg/dL POC Glucose (mg/dL) 146 H (70-110) mg/dL Troponin I (0.000-0.034) ng/mL C-Reactive Protein 11.60 H (0.00-0.80) mg/dL Urine Protein (Negative) Urine RBC (0-5) /hpf Hyaline Casts (0-2) /lpf Urine Mucus (None) /hpf Assessment and Plan Plan: 1patient presented hospital with sepsis in this patient with fever tachycardia elevated white count source is left diabetic foot infection and concern for underlying osteomyelitis we will need to cover for the polymicrobial john usually associated with diabetic foot infection 2-await surgical debridement and deep culture 3-continue with the vancomycin while watching his kidney function closely however switch Zosyn to Unasyn to decrease risk of nephrotoxicity We will follow on clinical condition and cultures to further adjust medication if needed Thank you for this consultation we will follow the patient along with you Dictation was produced using [employer] software. please excuse any grammatical, word or spelling errors. Time with Patient: Greater than 30
[2023-02-11] MEDS ORDERED: VANCOMYCIN TROUGH DUE 1 EACH MISC MISCELLANE ONE (04:00)
[2023-02-11 05:52] LABS: Glucose,Whole Blood 182 mg/dL (70-110)
[2023-02-11] MEDS: PIPERACILLIN-TAZOBACTAM 3.375 GM in SODIUM CHLORIDE 0.9% 100 ML IVPB SCH ×3 (06:29→23:58)
[2023-02-11] MEDS: INSULIN ASPART (NovoLOG) 100 UNIT/ML VIAL SQ SCH ×4 (06:30→21:18)
[2023-02-11 06:45] LABS: African American GFR (CKD) 45 (>60 ml/min/1.73 sqM); Non-African American GFR(CKD) 39 (>60 ml/min/1.73 sqM)
[2023-02-11] MEDS: LACTULOSE 20 GM/30 ML CUP PO SCH (07:56)
[2023-02-11] MEDS: ISOSORBIDE MONONITRATE ER 30 MG TAB.ER.24H PO SCH (07:56)
[2023-02-11] MEDS: SUCRALFATE 1 GM TAB PO SCH ×4 (07:57→21:18)
[2023-02-11] MEDS: METOPROLOL TARTRATE 12.5 MG TAB PO SCH ×2 (07:57→21:17)
[2023-02-11] MEDS: FAMOTIDINE 20 MG TAB PO SCH ×2 (07:57→21:18)
[2023-02-11] MEDS: ASPIRIN 81 MG PO SCH (07:57)
[2023-02-11] MEDS: CLOPIDOGREL 75 MG TAB PO SCH (07:57)
[2023-02-11] MEDS: traMADol 50 MG TAB PO PRN ×2 (07:57→17:21)
[2023-02-11] MEDS: HEPARIN SODIUM,PORCINE 5,000 UNIT/ML 1 ML VIAL SQ SCH ×3 (07:58→23:58)
[2023-02-11] MEDS: FERROUS SULFATE 325 MG TAB PO SCH (07:58)
[2023-02-11] MEDS: ALBUTEROL NEBULIZED 2.5 MG/3 ML INHALATION PRN (08:33)
[2023-02-11 09:00] LABS: BUN/Creat Ratio 25.24 Ratio (12.00-20.00); Blood Urea Nitrogen 42.9 mg/dL (9.0-27.0); Carbon Dioxide 21.5 mmol/L (21.6-31.8); Chloride 104 mmol/L (96-109); Glucose 171 mg/dL (70-110); Magnesium 1.9 mg/dL (1.5-2.4); Sodium 138 mmol/L (135-145)
[2023-02-11 09:05] LABS: Basophils # (A) 0.03 X 10*3/uL (0.00-0.10); Basophils % (A) 0.4 %; Eosinophils % (A) 1.4 %; HCT 27.8 % (39.6-50.0); HGB 8.9 d/dL (13.0-17.0); Lymphocytes # (A) 0.84 X 10*3/uL (0.90-5.00); MCV 93.6 FL (80.0-97.0); Monocytes # (A) 0.54 X 10*3/uL (0.20-1.00); Monocytes % (A) 7.7 %; NRBC Per 100 WBC 0 X 10*3/uL (0.00-0.01); Neutrophils # (A) 5.44 X 10*3/uL (1.80-7.70); Neutrophils % (A) 78.1 %; Platelet Count 183 X 10*3/uL (140-440); RBC 2.97 X 10*6/uL (4.40-5.60); WBC 6.98 X 10*3/uL (4.50-10.00)
[2023-02-11 11:45] LABS: Glucose,Whole Blood 185 mg/dL (70-110)
[2023-02-11] MEDS: IPRATROPIUM-ALBUTEROL 3 ML NEB INHALATION PRN ×3 (11:50→19:56)
[2023-02-11] MEDS: FUROSEMIDE 40 MG TAB PO SCH ×2 (12:16→17:16)
--- NOTE | 2023-02-11 14:40 | P.PN ---
Subjective Progress Note Date: 02/11/23 Principal diagnosis: Left diabetic foot infection and bacteremia Patient is a 67-year-old male with a past medical history significant for diabetes mellitus hypertension hyperlipidemia [place] history of brain cancer in remission and heart failure did have a history of diabetic foot infection and previous right foot transmetatarsal amputation patient is presenting to [facility] ER concerning for an ulceration to the left foot lateral aspect, patient noticed to have a extensive infection to the left foot and also evidence of gram-negative bacteremia On today's evaluation that is 02/11/2023, the patient did have resolution of his fever and is afebrile this morning, the patient is breathing comfortably on room air and no need for supplemental oxygen, the patient denies any chest pain or cough and no sputum production, patient denies abdominal pain and no na usea/vomiting or diarrhea , denies pain to the left foot Patient white count of 6.98, creatinine is 1.78, blood culture gram-negative bacilli Objective - Vital Signs Vital signs: Vital Signs Temp 98.1 F 02/11/23 07:55 Pulse 100 02/11/23 12:01 Resp 18 02/11/23 07:55 BP 121/73 02/11/23 07:55 Pulse Ox 99 02/11/23 08:33 FiO2 Intake & Output 02/10/23 02/11/23 02/11/23 18:59 06:59 18:59 Output Total 66 Balance -66 Weight 122.47 kg Output: Post Void Residual 66 Other: Voiding Method Urinal Diaper Diaper External Catheter # Voids 2 - Exam GENERAL DESCRIPTION: An elderly male lying in bed in no distress RESPIRATORY SYSTEM: Unlabored breathing , clear to auscultation anteriorly HEART: S1 S2 regular rate and rhythm , ABDOMEN: Soft , no tenderness EXTREMITIES: Left foot is currently dressed - Labs CBC & Chem 7: 02/11/23 05:42 02/11/23 05:42 Labs: Abnormal Lab Results - Last 24 Hours (Table) 02/10/23 02/10/23 02/10/23 Range/Units 05:26 15:49 17:32 RBC (4.40-5.60) X 10*6/uL Hgb (13.0-17.0) d/dL Hct (39.6-50.0) % Lymphocytes # (0.90-5.00) X 10*3/uL ESR 98 H (0-20) mm/Hr Carbon Dioxide (21.6-31.8) mmol/L Anion Gap (4.00-12.00) mmol/L BUN (9.0-27.0) mg/dL Creatinine (0.6-1.5) mg/dL Est GFR (CKD-EPI) (>=60) BUN/Creatinine Ratio (12.00-20.00) Ratio Glucose (70-110) mg/dL POC Glucose (mg/dL) 223 H 241 H (70-110) mg/dL Hemoglobin A1c (<=6.0) % Calcium (8.7-10.3) mg/dL 02/10/23 02/11/23 02/11/23 Range/Units 21:14 05:42 05:42 RBC 2.97 L (4.40-5.60) X 10*6/uL Hgb 8.9 L (13.0-17.0) d/dL Hct 27.8 L (39.6-50.0) % Lymphocytes # 0.84 L (0.90-5.00) X 10*3/uL ESR (0-20) mm/Hr Carbon Dioxide (21.6-31.8) mmol/L Anion Gap (4.00-12.00) mmol/L BUN (9.0-27.0) mg/dL Creatinine (0.6-1.5) mg/dL Est GFR (CKD-EPI) (>=60) BUN/Creatinine Ratio (12.00-20.00) Ratio Glucose (70-110) mg/dL POC Glucose (mg/dL) 206 H (70-110) mg/dL Hemoglobin A1c 7.4 H (<=6.0) % Calcium (8.7-10.3) mg/dL 02/11/23 02/11/23 02/11/23 Range/Units 05:42 05:42 05:50 RBC (4.40-5.60) X 10*6/uL Hgb (13.0-17.0) d/dL Hct (39.6-50.0) % Lymphocytes # (0.90-5.00) X 10*3/uL ESR (0-20) mm/Hr Carbon Dioxide 21.5 L (21.6-31.8) mmol/L Anion Gap 12.50 H (4.00-12.00) mmol/L BUN 42.9 H (9.0-27.0) mg/dL Creatinine 1.7 H 1.78 H (0.6-1.5) mg/dL Est GFR (CKD-EPI) 44 L (>=60) BUN/Creatinine Ratio 25.24 H (12.00-20.00) Ratio Glucose 171 H (70-110) mg/dL POC Glucose (mg/dL) 182 H (70-110) mg/dL Hemoglobin A1c (<=6.0) % Calcium 8.0 L (8.7-10.3) mg/dL 02/11/23 Range/Units 11:44 RBC (4.40-5.60) X 10*6/uL Hgb (13.0-17.0) d/dL Hct (39.6-50.0) % Lymphocytes # (0.90-5.00) X 10*3/uL ESR (0-20) mm/Hr Carbon Dioxide (21.6-31.8) mmol/L Anion Gap (4.00-12.00) mmol/L BUN (9.0-27.0) mg/dL Creatinine (0.6-1.5) mg/dL Est GFR (CKD-EPI) (>=60) BUN/Creatinine Ratio (12.00-20.00) Ratio Glucose (70-110) mg/dL POC Glucose (mg/dL) 185 H (70-110) mg/dL Hemoglobin A1c (<=6.0) % Calcium (8.7-10.3) mg/dL Microbiology - Last 24 Hours (Table) 02/09/23 14:42 Gram Stain - Preliminary Foot - Left 02/09/23 14:34 Blood Culture - Preliminary Blood 02/09/23 14:19 Blood Culture Gram Stain - Preliminary Blood Assessment and Plan (1) Diabetic infection of left foot Current Visit: Yes Status: Acute Code(s): E11.628 - TYPE 2 DIABETES MELLITUS WITH OTHER SKIN COMPLICATIONS; L08.9 - LOCAL INFECTION OF THE SKIN AND SUBCUTANEOUS TISSUE, UNSP SNOMED Code(s): 06411372 (2) Gram-negative bacteremia Current Visit: Yes Status: Acute Code(s): R78.81 - BACTEREMIA SNOMED Code(s): 580918108950 (3) Osteomyelitis Current Visit: Yes Status: Acute Code(s): M86.9 - OSTEOMYELITIS, UNSPECIFIED SNOMED Code(s): 31868950 (4) Sepsis Current Visit: Yes Status: Acute Code(s): A41.9 - SEPSIS, UNSPECIFIED ORGANISM SNOMED Code(s): 93643846 Plan: 1patient presented hospital with sepsis in this patient with fever tachycardia elevated white count source is left diabetic foot infection and concern for underlying osteomyelitis we will need to cover for the polymicrobial john usually associated with diabetic foot infection 2-await surgical debridement and deep culture 9-myht-usmuqyzl bacteremia source is likely left diabetic foot infection 4-vancomycin and Unasyn has been discontinued patient has been started on Zosyn and will monitor clinical course closely Dictation was produced using [employer] dictation software. please excuse any grammatical, word or spelling errors. Time with Patient: Less than 30
--- NOTE | 2023-02-11 14:52 | P.PN ---
Subjective Progress Note Date: 02/11/23 Hospital Course: 67-year-old male with history of CAD status post CABG, peripheral arterial dis ease, systolic heart failure, insulin-dependent diabetes resenting today with worsening left foot wound. He was recently hospitalized and discharged after acute CHF exacerbation. At the time of discharge for x-rays did not show any evidence of bone involvement. However, recently his son noted a foul-smelling drainage, and was sent over to get evaluated. In the ER patient was febrile and tachycardic. WBC was 16.9, creatinine 1.23, respiratory viral panel negative. Foot x-ray shows fifth metatarsal head osteomyelitis. EKG showed likely sinus rhythm with right bundle branch block, chest x-ray did not show any acute process. Patient admitted for acute left foot osteomyelitis, ID and vascular surgery consulted. Note on IV Zosyn. Plan for amputation tomorrow Subjective: Patient seen and examined at bedside. No acute events overnight. Complaining about left foot pain. Pertinent positives and negatives as discussed above, a complete review of systems was performed and all other systems are negative. Vitals Signs Reviewed. General: nontoxic, no distress, appears at stated age, morbidly obese Derm: warm, dry, necrotic ulceration over left lateral foot with surrounding er ythema and edema Head: atraumatic, normocephalic, symmetric Eyes: EOMI, no lid lag, anicteric sclera Mouth: no lip lesion, mucus membranes moist Cardiovascular: S1S2 reg, no murmur Lungs: CTA bilateral, no rhonchi, no rales , no accessory muscle use Abdominal: soft, nontender to palpation, no guarding, no appreciable organomegaly Ext: no gross muscle atrophy, 2+ peripheral edema lower extremity, worse on the left, no contractures Neuro: CN II-XI grossly intact, no focal neuro deficits Psych: Alert, oriented, appropriate affect Data Reviewed Today: Pertinent Labs: WBC 6.98, hemoglobin 8.9, creatinine 1.70, glucose and protein 1 7122 at 6, magnesium 1.9, A1c 7.4 Imaging: No new imaging Assessment and Plan: Active: Sepsis secondary to left foot osteomyelitis Gram-negative bacteremia Insulin-dependent diabetes Peripheral arterial disease -ID note reviewed, patient started on Zosyn 3.375 g IV every 8 hours -Looks like only 1 out of 2 bottles positive for gram-negative -Repeat blood cultures ordered -Vascular surgery following, amputation planned for tomorrow -Patient was given 1/2 L of fluid in the ED, restarted on his home diuretics, 40 mg Lasix twice a day -Home Levemir decreased to 50 units at night given patient will be nothing by mouth overnight, continue sliding scale insulin Acute kidney injury -Hold losartan for now -Monitor I's and O's -Renal ultrasound Elevated troponin, nonischemic -On aspirin, Plavix, statin Chronic: CAD status post CABG Systolic CHF, not in exacerbation DVT ppx: Subcu heparin Code status: Full code Anticipated discharge place: Pending clinical course Anticipated discharge time pending clinical course Objective - Vital Signs Vital signs: Vital Signs Temp 97.9 F 02/11/23 14:00 Pulse 82 02/11/23 14:00 Resp 21 02/11/23 14:00 BP 95/58 02/11/23 14:00 Pulse Ox 98 02/11/23 14:00 FiO2 Intake & Output 02/10/23 02/11/23 02/11/23 18:59 06:59 18:59 Output Total 66 Balance -66 Weight 122.47 kg Output: Post Void Residual 66 Other: Voiding Method Urinal Diaper Diaper External Catheter # Voids 2 - Labs CBC & Chem 7: 02/11/23 05:42 02/11/23 05:42 Labs: Abnormal Lab Results - Last 24 Hours (Table) 02/10/23 02/10/23 02/10/23 Range/Units 15:49 17:32 21:14 RBC (4.40-5.60) X 10*6/uL Hgb (13.0-17.0) d/dL Hct (39.6-50.0) % Lymphocytes # (0.90-5.00) X 10*3/uL Carbon Dioxide (21.6-31.8) mmol/L Anion Gap (4.00-12.00) mmol/L BUN (9.0-27.0) mg/dL Creatinine (0.6-1.5) mg/dL Est GFR (CKD-EPI) (>=60) BUN/Creatinine Ratio (12.00-20.00) Ratio Glucose (70-110) mg/dL POC Glucose (mg/dL) 223 H 241 H 206 H (70-110) mg/dL Hemoglobin A1c (<=6.0) % Calcium (8.7-10.3) mg/dL 02/11/23 02/11/23 02/11/23 Range/Units 05:42 05:42 05:42 RBC 2.97 L (4.40-5.60) X 10*6/uL Hgb 8.9 L (13.0-17.0) d/dL Hct 27.8 L (39.6-50.0) % Lymphocytes # 0.84 L (0.90-5.00) X 10*3/uL Carbon Dioxide 21.5 L (21.6-31.8) mmol/L Anion Gap 12.50 H (4.00-12.00) mmol/L BUN 42.9 H (9.0-27.0) mg/dL Creatinine 1.7 H (0.6-1.5) mg/dL Est GFR (CKD-EPI) 44 L (>=60) BUN/Creatinine Ratio 25.24 H (12.00-20.00) Ratio Glucose 171 H (70-110) mg/dL POC Glucose (mg/dL) (70-110) mg/dL Hemoglobin A1c 7.4 H (<=6.0) % Calcium 8.0 L (8.7-10.3) mg/dL 02/11/23 02/11/23 02/11/23 Range/Units 05:42 05:50 11:44 RBC (4.40-5.60) X 10*6/uL Hgb (13.0-17.0) d/dL Hct (39.6-50.0) % Lymphocytes # (0.90-5.00) X 10*3/uL Carbon Dioxide (21.6-31.8) mmol/L Anion Gap (4.00-12.00) mmol/L BUN (9.0-27.0) mg/dL Creatinine 1.78 H (0.6-1.5) mg/dL Est GFR (CKD-EPI) (>=60) BUN/Creatinine Ratio (12.00-20.00) Ratio Glucose (70-110) mg/dL POC Glucose (mg/dL) 182 H 185 H (70-110) mg/dL Hemoglobin A1c (<=6.0) % Calcium (8.7-10.3) mg/dL Microbiology - Last 24 Hours (Table) 02/09/23 14:42 Gram Stain - Preliminary Foot - Left 02/09/23 14:34 Blood Culture - Preliminary Blood 02/09/23 14:19 Blood Culture Gram Stain - Preliminary Blood
[2023-02-11 16:53] LABS: Glucose,Whole Blood 238 mg/dL (70-110)
[2023-02-11 19:52] LABS: Glucose,Whole Blood 246 mg/dL (70-110)
[2023-02-11] MEDS ORDERED: INSULIN DETEMIR (LEVEMIR) 100 UNIT/ML SYR SQ SCH (21:00)
[2023-02-11] MEDS: ATORVASTATIN 80 MG TAB PO SCH (21:17)
[2023-02-11] MEDS: TOPIRAMATE 25 MG TAB PO SCH (21:18)
[2023-02-12] MEDS: ALBUTEROL NEBULIZED 2.5 MG/3 ML INHALATION PRN ×3 (03:12→15:36)
[2023-02-12 05:54] LABS: Glucose,Whole Blood 121 mg/dL (70-110)
[2023-02-12] MEDS: INSULIN ASPART (NovoLOG) 100 UNIT/ML VIAL SQ SCH ×4 (05:55→21:10)
[2023-02-12] MEDS: PIPERACILLIN-TAZOBACTAM 3.375 GM in SODIUM CHLORIDE 0.9% 100 ML IVPB SCH ×3 (06:34→23:53)
[2023-02-12] MEDS: HEPARIN SODIUM,PORCINE 5,000 UNIT/ML 1 ML VIAL SQ SCH ×2 (07:07→17:02)
[2023-02-12 07:54] LABS: HCT 28.1 % (39.0-53.0); Hypochromasia Slight; MCH 30.3 pg (25.0-35.0); MCV 94.7 fL (80.0-100.0); Mean Platelet Volume 8.4; Platelet Count 170 k/uL (150-450); RBC 2.97 m/uL (4.30-5.90); RDW 13.9 % (11.5-15.5); WBC 6.5 k/uL (3.8-10.6)
[2023-02-12 08:05] LABS: African American GFR (CKD) 38 (>60 ml/min/1.73 sqM); Anion Gap 8 mmol/L; Blood Urea Nitrogen 47 mg/dL (9-20); Calcium 8.3 mg/dL (8.4-10.2); Carbon Dioxide 25 mmol/L (22-30); Chloride 104 mmol/L (98-107); Glucose 100 mg/dL (74-99); Non-African American GFR(CKD) 32 (>60 ml/min/1.73 sqM); Sodium 137 mmol/L (137-145)
[2023-02-12] MEDS: ISOSORBIDE MONONITRATE ER 30 MG TAB.ER.24H PO SCH (08:38)
[2023-02-12] MEDS: SUCRALFATE 1 GM TAB PO SCH ×4 (08:38→20:53)
[2023-02-12] MEDS: FAMOTIDINE 20 MG TAB PO SCH (08:38)
[2023-02-12] MEDS: FUROSEMIDE 40 MG TAB PO SCH ×2 (08:38→17:02)
[2023-02-12] MEDS: CLOPIDOGREL 75 MG TAB PO SCH (08:38)
[2023-02-12] MEDS: ASPIRIN 81 MG PO SCH (08:38)
[2023-02-12] MEDS: LACTULOSE 20 GM/30 ML CUP PO SCH ×2 (08:38→09:10)
[2023-02-12] MEDS: FERROUS SULFATE 325 MG TAB PO SCH (08:38)
[2023-02-12] MEDS: METOPROLOL TARTRATE 12.5 MG TAB PO SCH ×2 (08:41→20:53)
[2023-02-12] MEDS ORDERED: IV FLUID CONTINUATION 1,000 ML IV ONE (10:50)
[2023-02-12] MEDS ORDERED: ONDANSETRON 4 MG/2 ML VIAL IVP ONE (11:00)
[2023-02-12] MEDS ORDERED: ONDANSETRON 4 MG/2 ML VIAL ONE (11:04)
[2023-02-12 11:07] LABS: Glucose,Whole Blood 86 mg/dL (70-110)
[2023-02-12] MEDS ORDERED: PROPOFOL 10 MG/ML 20 ML VIAL IV ONE (12:00)
[2023-02-12] MEDS ORDERED: PHENYLEPHRINE 10 MG/ML 5 ML VIAL ONE (12:00)
[2023-02-12] MEDS ORDERED: ePHEDrine 50 MG/ML 1 ML VIAL ONE (12:00)
[2023-02-12] MEDS ORDERED: MIDAZOLAM 2 MG/2 ML VIAL ONE (12:00)
[2023-02-12] MEDS ORDERED: LIDOCAINE 2% INJ 20 MG/ML SQ ONE ×2 (12:27)
--- NOTE | 2023-02-12 13:03 | P.OP ---
Date of Procedure: 02/12/23 Description of Procedure: SURGEON: Marjan Short DO UNDERPRESSER HAND: None PREOPERATIVE DIAGNOSIS: Left fifth toe osteomyelitis, nonhealing wound POSTOPERATIVE DIAGNOSIS: Same OPERATION: Left fifth toe amputation. Application of wound VAC ANESTHESIA: Sedation with regional block ESTIMATED BLOOD LOSS: 25 mL SPECIMENS REMOVED: Left fifth toe COMPLICATIONS: None OPERATIVE FINDINGS: Patient is a 67-year-old male with a nonhealing wound of his left fifth toe that he states is midline on for many months. Imaging was performed showing ostial myelitis in the fifth toe therefore discussion regarding amputation of this and the significant plantar wound infection was discussed. Legal guardian approved and papers were signed6 DESCRIPTION OF PROCEDURE: This patient was brought to the operating room, and given local and IV sedation. The operative foot was prepped and draped in sterile manner. An incision was made at the base of the fifth toe deep into skin and fascia on plantar and dorsal aspect until we reached the head of the metatarsal bone. The head of the metatarsal was from the fifth toe. The tendons were divided in plantar and dorsal aspects. The fifth toe was removed. The metatarsal was transected and removed. There were minimal bleeding points which were electrocoagulated and some of them were suture ligated. Base of the wound looked clean, and the wound was copiously irrigated with saline. Tissue was approximated with 3-0 Vicryl interrupted sutures. The lateral portion of the wound was reapproximated with mattress sutures of 2-0 nylon. Due to the remainder of the wound, a wound VAC was placed. The resultant wound measured 4 x 3 x 0.9 cm. Hemostasis was well controlled and pressure dressing was applied. The patient tolerated the procedure well.
--- NOTE | 2023-02-12 13:10 | P.PN ---
Subjective Progress Note Date: 02/12/23 Hospital Course: 67-year-old male with history of CAD status post CABG, peripheral arterial dis ease, systolic heart failure, insulin-dependent diabetes resenting today with worsening left foot wound. He was recently hospitalized and discharged after acute CHF exacerbation. At the time of discharge for x-rays did not show any evidence of bone involvement. However, recently his son noted a foul-smelling drainage, and was sent over to get evaluated. In the ER patient was febrile and tachycardic. WBC was 16.9, creatinine 1.23, respiratory viral panel negative. Foot x-ray shows fifth metatarsal head osteomyelitis. EKG showed likely sinus rhythm with right bundle branch block, chest x-ray did not show any acute process. Patient admitted for acute left foot osteomyelitis, ID and vascular surgery consulted. Note on IV Zosyn. Plan for amputation today. Subjective: Patient seen and examined at bedside. No acute events overnight. Complaining about left foot pain. Pertinent positives and negatives as discussed above, a complete review of systems was performed and all other systems are negative. Vitals Signs Reviewed. General: nontoxic, no distress, appears at stated age, morbidly obese Derm: warm, dry, necrotic ulceration over left lateral foot with surrounding erythema and edema Head: atraumatic, normocephalic, symmetric Eyes: EOMI, no lid lag, anicteric sclera Mouth: no lip lesion, mucus membranes moist Cardiovascular: S1S2 reg, no murmur Lungs: CTA bilateral, no rhonchi, no rales , no accessory muscle use Abdominal: soft, nontender to palpation, no guarding, no appreciable organomegaly Ext: no gross muscle atrophy, 2+ peripheral edema lower extremity, worse on the left, no contractures Neuro: CN II-XI grossly intact, no focal neuro deficits Psych: Alert, oriented, appropriate affect Data Reviewed Today: Pertinent Labs: WBC 6.5, hemoglobin 9, creatinine 2.08 Imaging: No new imaging Assessment and Plan: Active: Sepsis secondary to left foot osteomyelitis Morganella bacteremia Insulin-dependent diabetes Peripheral arterial disease Acute on chronic systolic CHF exacerbation Acute on chronic hypoxic respiratory failure -ID following, patient on Zosyn 3.375 g IV every 8 hours -Repeat blood cultures pending -Wound cultures also growing Morganella and enterococcus -Vascular surgery following, amputation planned for today -Patient is still quite volume overloaded, continue oral Lasix 40 mg twice a day, if creatinine continues to worsen, may consider decreasing the diuretics -Home Levemir 75 units at night, continue sliding scale insulin before every meal at bedtime Acute kidney injury -Hold losartan for now -Monitor I's and O's -Renal ultrasound -Patient continues to be volume overloaded, we'll continue diuretics for now -Acute kidney injury possibly in the setting of cardiorenal syndrome Elevated troponin, nonischemic -On aspirin, Plavix, statin Chronic: CAD status post CABG DVT ppx: Subcu heparin Code status: Full code Anticipated discharge place: Pending clinical course Anticipated discharge time: pending clinical course Objective - Vital Signs Vital signs: Vital Signs Temp 97 F L 02/12/23 10:59 Pulse 80 02/12/23 10:59 Resp 19 02/12/23 07:45 BP 125/70 02/12/23 10:59 Pulse Ox 97 02/12/23 10:59 FiO2 Intake & Output 02/11/23 02/12/23 02/12/23 18:59 06:59 18:59 Intake Total 300 Output Total 750 25 Balance -750 275 Weight 104.7 kg 104.7 kg Intake: IV 300 Output: Urine 750 Estimated Blood Loss 25 Other: Voiding Method Diaper Urinal External Catheter - Labs CBC & Chem 7: 02/12/23 06:54 02/12/23 06:54 Labs: Abnormal Lab Results - Last 24 Hours (Table) 02/11/23 02/11/23 02/12/23 Range/Units 16:52 19:51 05:52 RBC (4.30-5.90) m/uL Hgb (13.0-17.5) gm/dL Hct (39.0-53.0) % BUN (9-20) mg/dL Creatinine (0.66-1.25) mg/dL Glucose (74-99) mg/dL POC Glucose (mg/dL) 238 H 246 H 121 H (70-110) mg/dL Calcium (8.4-10.2) mg/dL 02/12/23 02/12/23 Range/Units 06:54 06:54 RBC 2.97 L (4.30-5.90) m/uL Hgb 9.0 L D (13.0-17.5) gm/dL Hct 28.1 L (39.0-53.0) % BUN 47 H (9-20) mg/dL Creatinine 2.08 H (0.66-1.25) mg/dL Glucose 100 H (74-99) mg/dL POC Glucose (mg/dL) (70-110) mg/dL Calcium 8.3 L (8.4-10.2) mg/dL Microbiology - Last 24 Hours (Table) 02/09/23 14:19 Blood Culture Gram Stain - Final Blood Blood Culture - Final Morganella morganii 02/09/23 14:34 Blood Culture - Preliminary Blood 02/09/23 14:42 Gram Stain - Final Foot - Left Wound Culture - Final Morganella morganii Enterococcus faecalis
[2023-02-12] MEDS ORDERED: ALBUTEROL NEBULIZED 2.5 MG/3 ML INHALATION ONE (13:15)
[2023-02-12 13:42] LABS: Glucose,Whole Blood 91 mg/dL (70-110)
[2023-02-12] MEDS ORDERED: HYDROmorphone 0.5 MG/0.5 ML SYRINGE IVP PRN (14:19)
[2023-02-12] MEDS: HYDROcodone/APAP 5-325MG 1 EACH TAB PO PRN ×2 (14:29→21:02)
--- NOTE | 2023-02-12 15:58 | US ---
EXAMINATION TYPE: US kidneys/renal and bladder DATE OF EXAM: 02/12/2023 COMPARISON: 10/24/2022 CLINICAL INDICATION: Male, 67 years old with history of rose; ROSE EXAM MEASUREMENTS: Right Kidney: 13.0 x 5.2 x 5.4 cm Left Kidney: unable to visualize Very limited exam due to overlying bowel gas Right Kidney: Enlarged. No hydronephrosis or masses seen Left Kidney: unable to visualize due to bowel gas and patient body habitus Bladder: wnl Bilateral Jets seen: Yes IMPRESSION: 1. Unable to visualize left kidney. 2. Right kidney appears prominent
[2023-02-12 16:44] LABS: Glucose,Whole Blood 105 mg/dL (70-110)
[2023-02-12] MEDS ORDERED: METOPROLOL TARTRATE 12.5 MG TAB PO STA (17:31)
[2023-02-12 19:42] LABS: Glucose,Whole Blood 141 mg/dL (70-110)
[2023-02-12] MEDS: ATORVASTATIN 80 MG TAB PO SCH (20:53)
[2023-02-12] MEDS: INSULIN DETEMIR (LEVEMIR) 100 UNIT/ML SYR SQ SCH (20:54)
[2023-02-12] MEDS: TOPIRAMATE 25 MG TAB PO SCH (21:44)
[2023-02-13] MEDS: HEPARIN SODIUM,PORCINE 5,000 UNIT/ML 1 ML VIAL SQ SCH ×4 (00:21→23:58)
[2023-02-13 05:59] LABS: Glucose,Whole Blood 88 mg/dL (70-110)
[2023-02-13] MEDS: INSULIN ASPART (NovoLOG) 100 UNIT/ML VIAL SQ SCH ×4 (06:07→20:27)
[2023-02-13] MEDS: PIPERACILLIN-TAZOBACTAM 3.375 GM in SODIUM CHLORIDE 0.9% 100 ML IVPB SCH ×3 (06:22→22:09)
[2023-02-13 07:59] LABS: Basophils % (A) 0 %; Eosinophils # (A) 0.3 k/uL (0-0.7); Eosinophils % (A) 3 %; Hypochromasia Marked; Lymphocytes % (A) 10 %; MCH 30.4 pg (25.0-35.0); MCHC 31.4 g/dL (31.0-37.0); MCV 96.9 fL (80.0-100.0); Mean Platelet Volume 9.2; Monocytes # (A) 0.4 k/uL (0-1.0); Monocytes % (A) 4 %; Neutrophils # (A) 8.4 k/uL (1.3-7.7); Neutrophils % (A) 82 %; Platelet Count 181 k/uL (150-450); RBC 3.31 m/uL (4.30-5.90); WBC 10.3 k/uL (3.8-10.6)
[2023-02-13 08:27] LABS: African American GFR (CKD) 35 (>60 ml/min/1.73 sqM); Anion Gap 10 mmol/L; Blood Urea Nitrogen 55 mg/dL (9-20); Calcium 8.6 mg/dL (8.4-10.2); Carbon Dioxide 23 mmol/L (22-30); Chloride 104 mmol/L (98-107); Glucose 64 mg/dL (74-99); Magnesium 2.2 mg/dL (1.6-2.3); Non-African American GFR(CKD) 30 (>60 ml/min/1.73 sqM); Sodium 137 mmol/L (137-145)
[2023-02-13] MEDS: IPRATROPIUM-ALBUTEROL 3 ML NEB INHALATION PRN ×3 (08:29→20:32)
[2023-02-13 08:31] LABS: Potassium 5.3 mmol/L (3.5-5.1)
[2023-02-13] MEDS: FERROUS SULFATE 325 MG TAB PO SCH (08:38)
[2023-02-13] MEDS: HYDROcodone/APAP 5-325MG 1 EACH TAB PO PRN ×3 (08:38→22:09)
[2023-02-13] MEDS: FUROSEMIDE 40 MG TAB PO SCH (08:38)
[2023-02-13] MEDS: FAMOTIDINE 20 MG TAB PO SCH (08:38)
[2023-02-13] MEDS: LACTULOSE 20 GM/30 ML CUP PO SCH (08:38)
[2023-02-13] MEDS: METOPROLOL TARTRATE 12.5 MG TAB PO SCH ×2 (08:38→20:27)
[2023-02-13] MEDS: SUCRALFATE 1 GM TAB PO SCH ×4 (08:38→20:27)
[2023-02-13] MEDS: ISOSORBIDE MONONITRATE ER 30 MG TAB.ER.24H PO SCH (08:38)
[2023-02-13] MEDS: ASPIRIN 81 MG PO SCH (08:38)
[2023-02-13] MEDS: CLOPIDOGREL 75 MG TAB PO SCH (08:39)
[2023-02-13] MEDS: ALBUTEROL NEBULIZED 2.5 MG/3 ML INHALATION PRN (11:29)
[2023-02-13 11:41] LABS: Glucose,Whole Blood 96 mg/dL (70-110)
--- NOTE | 2023-02-13 13:33 | P.CRDCN ---
History of Present Illness Consult date: 02/13/23 Requesting physician: Marjan Short Reason for Consult (text): known, recent lower extremity intervention Chief complaint: infected right 5th toe wound History of present illness: Pleasant 67-year-old gentleman who follows with Dr. Mai in the office he has a known history of hypertension, hyperlipidemia, diabetes, CAD, cardiomyopathy with an ejection fraction of 25-30% in December of this year, and peripheral arterial disease status post PTCA on 01/20/2023 of the left, prior amputation of the distal right foot done at [facility]. He was admitted to the hospital recently with congestive heart failure. At that time he was diuresed and discharged home on some tolerated and when directed medical therapy. During that admission he was noted to have a wound on his left fifth toe that appeared to be infected. He presented this admission due to the infected foot wound. There was evidence of osteomyelitis. He underwent left fifth toe amputation with debridement and placement of wound VAC yesterday by Dr. Short. We were asked to see the patient in consultation due to recent left SFA intervention. From a cardiac standpoint he continues to feel short of breath with some ortho pnea but this appears to be relatively stable. He's had no chest discomfort. He has worsening edema in the left lower extremity, stable mild edema in the right lower extremity. He's had no palpitations, dizziness or syncope. Vital signs have been stable. Labs show worsening renal function with a BUN of 55 and creatinine 2.22. Past Medical History Past Medical History: Cancer, Heart Failure, Dementia, Diabetes Mellitus, GERD/Reflux, Hearing Disorder / Deafness, Hyperlipidemia, Hypertension, Myocardial Infarction ([place]), Osteoarthritis (OA), Pneumonia Additional Past Medical History / Comment(s[place] 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 Mother Additional Family Medical History / Comment(s): Mother had a bad heart. Medications and Allergies Home Medications Medication Instructions Recorded Confirmed Type Aspirin EC [Ecotrin Low Dose] 81 mg PO DAILY@0800 01/12/19 02/09/23 History Atorvastatin [Lipitor] 80 mg PO HS@199901/12/19 02/09/23 History Clopidogrel Bisulfate [Plavix] 75 mg PO DAILY@0800 07/28/21 02/09/23 History Ferrous Sulfate [Iron (65 MG 325 mg PO DAILY@0800 07/28/21 02/09/23 History Elemental)] Ipratropium-Albuterol Nebulize 3 ml INHALATION RT-QID PRN 07/28/21 02/09/23 His tory [Duoneb 0.5 mg-3 mg/3 ml Soln] Famotidine [Pepcid] 20 mg PO BID@0800,199903/18/22 02/09/23 History Dulaglutide [Trulicity] 1.5 mg SQ TH 04/01/22 02/09/23 History Insulin Aspart (Niacinamide) 25 units SQ BID 04/01/22 02/09/23 History [Fiasp 100 Unit/ml Flextouch Pen] Insulin Glargine,Hum.rec.anlog 75 units SQ HS 04/01/22 02/09/23 History [Basaglar Kwikpen U-100] Topiramate [Topamax] 25 mg PO HS@199904/01/22 02/09/23 History Acetaminophen [Tylenol] 650 mg PO QID PRN 04/22/22 02/09/23 History Albuterol Sulfate [Albuterol 1 - 2 puff INHALATION RT-Q4H PRN 04/22/22 02/09/23 History Sulfate Hfa] Dicyclomine 10mg/5ml Oral Solution 10 mg PO TID@0800,1700,199907/06/22 02/09/23 History Isosorbide Mononitrate ER [Imdur] 30 mg PO DAILY@0800 07/06/22 02/09/23 History Lactulose [Cephulac] 20 gm PO DAILY@0800 10/15/22 02/09/23 History traMADol HCL 50 mg PO Q6H 10/15/22 02/09/23 History Nitroglycerin Sl Tabs [Nitrostat] 0.4 mg SL Q5M PRN 10/20/22 02/09/23 History Metoprolol Tartrate [Lopressor] 12.5 mg PO BID@0800,2000 12/08/22 02/09/23 History Sucralfate [Sucralfate Oral Susp] 1 gm PO ACHS@08,12,17,20 12/08/22 02/09/23 History Collagenase [Santyl Ointment] 1 applic TOPICAL DAILY 02/01/23 02/09/23 History Furosemide [Lasix] 40 mg PO TID #0 02/03/23 02/09/23 Rx Losartan [Cozaar] 12.5 mg PO DAILY #0 tab 02/03/23 02/09/23 Rx Allergies Allergy/AdvReac Type Severity Reaction Status Date / Time furosemide [From Lasix] AdvReac Unknown Verified 02/09/23 13:59 sacubitril [From Entresto] AdvReac made him Verified 02/09/23 13:59 hypotensive valsartan [From Entresto] AdvReac made him Verified 02/09/23 13:59 hypotensive Physical Exam Vitals: Vital Signs Temp Pulse Pulse Resp BP Pulse Ox 02/13/23 08:40 61 02/13/23 08:31 61 98 02/13/23 01:53 97.4 F L 76 109/73 99 02/12/23 20:00 18 02/12/23 19:30 97.6 F 87 17 110/66 98 02/12/23 15:46 108 H 02/12/23 15:45 131 H 101/72 96 02/12/23 15:36 110 H 02/12/23 15:30 129 H 106/82 94 L 02/12/23 15:15 127 H 150/66 92 L 02/12/23 15:00 133 H 114/74 96 02/12/23 14:45 110 H 157/78 97 02/12/23 14:30 119 H 106/72 99 02/12/23 14:00 105 H 20 108/71 99 02/12/23 13:45 103 H 22 112/65 99 02/12/23 13:30 108 H 22 105/70 100 02/12/23 13:15 111 H 22 104/75 98 02/12/23 13:07 97 F L 103 H 24 120/79 98 02/12/23 10:59 97 F L 80 125/70 97 Intake and Output 02/12/23 02/13/23 02/13/23 22:59 06:59 14:59 Output Total 700 Balance -700 Output: Urine 700 Other: Weight 104.5 kg PHYSICAL EXAMINATION: This is a 67-year-old male in no apparent distress at the time of my examination. VITAL SIGNS: Reviewed HEENT: Head is atraumatic, normocephalic. Pupils are equal, round. Sclerae anicteric. Conjunctivae are clear. Mucous membranes of the mouth are moist. Neck is supple. There is no elevated jugular venous pressure. No carotid bruit is heard. CHEST EXAMINATION: Lungs diminished to auscultation bilaterally with faint end expiratory wheeze. Respirations even and nonlabored. HEART EXAMINATION: Heart regular, positive S1 and S2. No S3. No S4. No clicks, rubs or murmurs. ABDOMEN: Soft, nontender. Bowel sounds are heard. No organomegaly noted. EXTREMITIES: Length of old transmetatarsal amputation of the right foot, new amputation of the left fifth toe with wound VAC in place, trace to 1+ right lower extremity edema and 2+ left lower extremity edema. NEUROLOGIC EXAMINATION: Patient is awake, alert and oriented x3. Results 02/13/23 07:33 02/13/23 07:33 CBC 02/13/23 Range/Units 07:33 WBC 10.3 (3.8-10.6) k/uL RBC 3.31 L (4.30-5.90) m/uL Hgb 10.0 L (13.0-17.5) gm/dL Hct 32.0 L (39.0-53.0) % Plt Count 181 (150-450) k/uL Comprehensive Metabolic Panel 02/13/23 Range/Units 07:33 Sodium 137 (137-145) mmol/L Potassium 5.3 H (3.5-5.1) mmol/L Chloride 104 (98-107) mmol/L Carbon Dioxide 23 (22-30) mmol/L BUN 55 H (9-20) mg/dL Creatinine 2.22 H (0.66-1.25) mg/dL Glucose 64 L (74-99) mg/dL Calcium 8.6 (8.4-10.2) mg/dL Current Medications Generic Name Dose Route Start Last Admin Trade Name Freq PRN Reason Stop Dose Admin Acetaminophen 650 mg 02/10/23 03:46 02/10/23 16:07 Acetaminophen Tab 325 Mg Tab PO 650 mg QID PRN Administration Fever and/ or Pain Hydrocodone Bitart/Acetaminophen 1 each 02/12/23 14:19 02/13/23 08:38 Hydrocodone/Apap 5-325mg 1 Each Tab PO 1 each Q6HR PRN Administration Moderate to Severe Pain (4-10) Albuterol Sulfate 2.5 mg 02/10/23 13:11 02/12/23 15:36 Albuterol Nebulized 2.5 Mg/3 Ml INHALATION 2.5 mg RT-Q4H PRN Administration Shortness Of Breath Albuterol/Ipratropium 3 ml 02/10/23 03:46 02/13/23 08:29 Ipratropium-Albuterol 3 Ml Neb INHALATION 3 ml RT-QID PRN Administration Shortness Of Breath Aspirin 81 mg 02/10/23 09:00 02/13/23 08:38 Aspirin 81 Mg PO 81 mg DAILY TWILA Administration Atorvastatin Calcium 80 mg 02/10/23 21:00 02/12/23 20:53 Atorvastatin 80 Mg Tab PO 80 mg HS TWILA Administration Clopidogrel Bisulfate 75 mg 02/10/23 09:00 02/13/23 08:39 Clopidogrel 75 Mg Tab PO 75 mg DAILY TWILA Administration Dextrose/Water 25 ml 02/10/23 03:47 Dextrose 50% Syringe 50 Ml IVP PER PROTOCOL PRN Hypoglycemia Protocol Dextrose/Water 50 ml 02/10/23 03:47 Dextrose 50% Syringe 50 Ml IVP PER PROTOCOL PRN Hypoglycemia Protocol Famotidine 20 mg 02/13/23 08:00 02/13/23 08:38 Famotidine 20 Mg Tab PO 20 mg DAILY@0800 TWILA Administration Ferrous Sulfate 325 mg 02/11/23 08:00 02/13/23 08:38 Ferrous Sulfate 325 Mg Tab PO 325 mg DAILY@0800 TWILA Administration Furosemide 40 mg 02/11/23 12:00 02/13/23 08:38 Furosemide 40 Mg Tab PO 40 mg BID@0900,1600 TWILA Administration Heparin Sodium (Porcine) 5,000 unit 02/10/23 08:00 02/13/23 08:38 Heparin Sodium,Porcine 5,000 Unit/Ml 1 Ml Vial SQ 5,000 unit Q8HR TWILA Administration Hydromorphone HCl 0.5 mg 02/12/23 14:19 Hydromorphone 0.5 Mg/0.5 Ml Syringe IVP Q6HR PRN Severe Breakthrough Pain Piperacillin Sod/Tazobactam 100 mls @ 25 mls/hr 02/10/23 23:00 02/13/23 06:22 Sod 3.375 gm/ Sodium Chloride IVPB 25 mls/hr Q8H [facility] Administration Protocol Insulin Aspart 0 unit 02/10/23 07:30 02/13/23 06:07 Insulin Aspart (Novolog) 100 Unit/Ml Vial SQ Not Given ACHS [facility] Protocol Insulin Detemir 75 unit 02/12/23 21:00 02/12/23 20:54 Insulin Detemir (Levemir) 100 Unit/Ml Syr SQ 75 unit HS [facility] Administration Isosorbide Mononitrate 30 mg 02/10/23 09:00 02/13/23 08:38 Isosorbide Mononitrate Er 30 Mg Tab.Er.24h PO 30 mg DAILY TWILA Administration Lactulose 20 gm 02/11/23 08:00 02/13/23 08:38 Lactulose 20 Gm/30 Ml Cup PO 20 gm DAILY@0800 TWILA Administration Metoprolol Tartrate 12.5 mg 02/10/23 09:00 02/13/23 08:38 Metoprolol Tartrate 12.5 Mg Tab PO 12.5 mg BID TWILA Administration Sucralfate 1 gm 02/10/23 17:00 02/13/23 08:38 Sucralfate 1 Gm Tab PO 1 gm ACHS@08,12,17,20 TWILA Administration Topiramate 25 mg 02/10/23 21:00 02/12/23 21:44 Topiramate 25 Mg Tab PO 25 mg HS TWILA Administration Intake and Output 02/12/23 02/13/23 02/13/23 22:59 06:59 14:59 Output Total 700 Balance -700 Output: Urine 700 Other: Weight 104.5 kg 02/13/23 07:33 02/13/23 07:33 Assessment and Plan Assessment: 1 infected left foot wound with evidence of osteomyelitis status post amputation of the left fifth toe with wound VAC placement #2 CAD with known chronic total occlusion of the distal RCA and intermediate disease involving the OM1 #3 PAD with recent ROOM SERVICE 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 We will follow the renal function. Follow blood pressure. Further recommendations in regards to resuming ARB and/or oral nitrate depending on renal function and blood pressure. Continue to follow the patient and provide Further recommendations accordingly. SPEAKER WIRER note has been reviewed, I agree with a documented findings and plan of care. Patient was seen and examined.
--- NOTE | 2023-02-13 13:39 | P.PN ---
Subjective Progress Note Date: 02/13/23 (delayed charting seen at 1020) Patient is a 67-year-old male with diabetes, hypertension, systolic congestive heart failure with ejection fraction 25% that is well-known to our service from multiple recent hospitalizations who presented to the ER at the direction of his home care nurse due to worsening left foot wound. The ER he underwent an extensive evaluation. Workup revealed possible osteomyelitis of the left fifth toe with sepsis. The patient was started on vancomycin and Zosyn. Arrangements are made for admission. Infectious disease was consulted. Vascular surgery was also consulted and recommended amputation of the left fifth toe. Patient's blood cultures returned positive for Morganella. His left foot wound cultures then came back positive for Morganella and Enterobacter. Infectious disease recommended discontinuing vancomycin and continuing with Zosyn. Patient did undergo invitations will left fifth toe with wound VAC placement on 02/12/23 Patient seen and examined at bedside. He is having some pain in his left foot but it is manageable. He denies any chest pain or shortness of breath. He does complain of continued left lower extremity edema Vital signs reviewed General: nontoxic, no distress, appears at stated age Cardiovascular: S1S2 reg, no murmur Lungs: CTA bilateral, no rhonchi, no rales , no accessory muscle use Abdominal: soft, nontender to palpation, no guarding, no appreciable organomegaly Ext: no gross muscle atrophy, 2+ edema left lowe extremitu, 1+ right LE, no contractures, Left foot with wound vac in place Neuro: CN II-XI grossly intact, no focal neuro deficits Psych: Alert, oriented, appropriate affect Assessment/Plan: Sepsis secondary to left foot osteomyelitis status post left fifth toe amputation Morganella bacteremia Peripheral arterial disease -CRP 11.6 on admission -Zosyn 3.375 g IV every 8 hours -Wound cultures with Morganella and enterococcus, blood cultures positive for Morganella. Repeat blood cultures negative for 24 hours -Use [place] one tablet every 6 hours as needed for moderate pain, Dilaudid 0.5 mg IV every 6 hours as needed for severe pain - conitnue with cound vac, CBC in AM to monitor for ongoing blood loss. -Infectious disease doctor.: Continue with Zosyn -Awaiting further vascular surgery recommendations Acute exacerbation of systolic congestive heart failure with ejection fraction 25% Elevated troponin, nonischemic CAD status post CABG Acute on chronic hypoxic respiratory failure -Responding well to oral diuretics. Continue with Lasix 40 mg oral twice daily -Aspirin 81 mg daily, Lipitor 80 mg at night, Plavix 75 mg daily, Lopressor 12.5 mg daily, ARB on hold due to ROSE - Imdur 30 mg daily - Await cardio cosnult Edema left lower extremity greater than right -Check left lower extremity venous Doppler to rule out DVT Insulin-dependent diabetes, wiht hypoglycemia X 1 -A1c 7.4 - Decreased night time leemire to 65 untis at night SSI - Trulicity on hold Acute kidney injury -Hold losartan for now -Monitor I's and O's -Renal ultrasound: Unable to visualize left kidney, right kidney appears prominent -Patient continues to be volume overloaded, we'll continue diuretics for now -Acute kidney injury possibly in the setting of cardiorenal syndrome - Baseline Cr 1.23 - repeat BMP in AM Imaging: Renal ultrasound: Unable to visualize left kidney, right kidney appears prominent Data Review: Anticipated stay included CBC and basic metabolic profile which are remarkable for hemoglobin 10, potassium 5.3 (hemolyzed), and a.m. blood sugar of 64. DVT prophylaxis: Heparin Anticipated discharge date: Pending Clinical Course Anticipated discharge place: Pending Clinical Course This dictation was prepared using [employer] voice recognition software. Though every attempt is made to correct errors during dictation some may still exist. Objective - Vital Signs Vital signs: Vital Signs Temp 97.7 F 02/13/23 07:50 Pulse 82 02/13/23 11:40 Resp 19 02/13/23 07:50 BP 120/81 02/13/23 07:50 Pulse Ox 98 02/13/23 08:31 FiO2 Intake & Output 02/12/23 02/13/23 02/13/23 18:59 06:59 18:59 Intake Total 600 100 Output Total 25 700 Balance 575 -700 100 Weight 104.7 kg 104.5 kg Intake: IV 600 Intake, IV Titration 100 Amount Piperacillin-Tazobactam 3 100 .375 gm In Sodium Chloride 0.9% 100 ml @ 25 mls/hr IVPB Q8H COUNTS INCLUDE 234 BEDS AT THE [facility] Rx#: [id number] Output: Urine 700 Estimated Blood Loss 25 - Labs CBC & Chem 7: 02/13/23 07:33 02/13/23 07:33 Labs: Abnormal Lab Results - Last 24 Hours (Table) 02/12/23 02/13/23 02/13/23 Range/Units 19:40 07:33 07:33 RBC 3.31 L (4.30-5.90) m/uL Hgb 10.0 L (13.0-17.5) gm/dL Hct 32.0 L (39.0-53.0) % Neutrophils # 8.4 H (1.3-7.7) k/uL Potassium 5.3 H (3.5-5.1) mmol/L BUN 55 H (9-20) mg/dL Creatinine 2.22 H (0.66-1.25) mg/dL Glucose 64 L (74-99) mg/dL POC Glucose (mg/dL) 141 H (70-110) mg/dL Microbiology - Last 24 Hours (Table) 02/11/23 15:35 Blood Culture - Preliminary Blood 02/09/23 14:34 Blood Culture - Preliminary Blood 02/09/23 14:19 Blood Culture Gram Stain - Final Blood Blood Culture - Final Morganella morganii
--- NOTE | 2023-02-13 14:10 | P.PN ---
Subjective Progress Note Date: 02/13/23 Principal diagnosis: Osteomyelitis Patient seen and examined. Resting well. No overnight issues. Objective - Vital Signs Vital signs: Vital Signs Temp 97.7 F 02/13/23 07:50 Pulse 82 02/13/23 11:40 Resp 19 02/13/23 07:50 BP 120/81 02/13/23 07:50 Pulse Ox 98 02/13/23 08:31 FiO2 Intake & Output 02/12/23 02/13/23 02/13/23 18:59 06:59 18:59 Intake Total 600 100 Output Total 25 700 Balance 575 -700 100 Weight 104.7 kg 104.5 kg Intake: IV 600 Intake, IV Titration 100 Amount Piperacillin-Tazobactam 3 100 .375 gm In Sodium Chloride 0.9% 100 ml @ 25 mls/hr IVPB Q8H [facility] Rx#: [id number] Output: Urine 700 Estimated Blood Loss 25 - Exam Left surgical site with wound VAC in place Right TMA stable - Constitutional General appearance: Present: morbidly obese - Labs CBC & Chem 7: 02/13/23 07:33 02/13/23 07:33 Labs: Abnormal Lab Results - Last 24 Hours (Table) 02/12/23 02/13/23 02/13/23 Range/Units 19:40 07:33 07:33 RBC 3.31 L (4.30-5.90) m/uL Hgb 10.0 L (13.0-17.5) gm/dL Hct 32.0 L (39.0-53.0) % Neutrophils # 8.4 H (1.3-7.7) k/uL Potassium 5.3 H (3.5-5.1) mmol/L BUN 55 H (9-20) mg/dL Creatinine 2.22 H (0.66-1.25) mg/dL Glucose 64 L (74-99) mg/dL POC Glucose (mg/dL) 141 H (70-110) mg/dL Microbiology - Last 24 Hours (Table) 02/11/23 15:35 Blood Culture - Preliminary Blood 02/09/23 14:34 Blood Culture - Preliminary Blood 02/09/23 14:19 Blood Culture Gram Stain - Final Blood Blood Culture - Final Morganella morganii Assessment and Plan Assessment: 1. Osteomyelitis of left fifth toe postop day 1 left fifth toe amputation 2. History of peripheral arterial disease status post recent angioplasty of left SFA and stenting of right SFA 3. History coronary artery disease 4. Diabetes mellitus 5. Hypertension 6. Hyperlipidemia Plan: 1. Continue antibiotics per recommendations from infectious disease 2. Continue wound VAC 3. May continue aspirin and Plavix
--- NOTE | 2023-02-13 15:35 | US ---
EXAMINATION TYPE: US venous doppler duplex LE LT DATE OF EXAM: 02/13/2023 3:19 PM COMPARISON: NONE CLINICAL INDICATION: Male, 67 years old with history of edmea, DVT; post-op swelling, pt has drain in Lt. foot SIDE PERFORMED: Left TECHNIQUE: The lower extremity deep venous system is examined utilizing real time linear array sonog che with graded compression, doppler sonography and color-flow sonography. VESSELS IMAGED: Common Femoral Vein Deep Femoral Vein Greater Saphenous Vein * Femoral Vein Popliteal Vein Small Saphenous Vein * Proximal Calf Veins (* superficial vessels) slightly limited due to body habitus and edema IMPRESSION: The deep venous system of the left lower extremity from the common femoral vein to the proximal calf veins is patent and compressible with augmentable flow throughout. No evidence of DVT left lower extr emity.
[2023-02-13 16:57] LABS: Glucose,Whole Blood 115 mg/dL (70-110)
[2023-02-13 19:43] LABS: Glucose,Whole Blood 175 mg/dL (70-110)
[2023-02-13] MEDS: INSULIN DETEMIR (LEVEMIR) 100 UNIT/ML SYR SQ SCH (20:26)
[2023-02-13] MEDS: ATORVASTATIN 80 MG TAB PO SCH (20:27)
[2023-02-13] MEDS: TOPIRAMATE 25 MG TAB PO SCH (20:27)
--- NOTE | 2023-02-13 23:46 | P.PN ---
Subjective Progress Note Date: 02/12/23 Principal diagnosis: Left diabetic foot infection and bacteremia Patient is a 67-year-old male with a past medical history significant for diabetes mellitus hypertension hyperlipidemia [place] history of brain cancer in remission and heart failure did have a history of diabetic foot infection and previous right foot transmetatarsal amputation patient is presenting to [facility] ER concerning for an ulceration to the left foot lateral aspect, patient noticed to have a extensive infection to the left foot and also evidence of gram-negative bacteremia, the patient is status post left fifth toe amputation completed on 02/12/2023 On today's evaluation that is 02/12/2023, the patient remains to be afebrile, the patient is breathing comfortably on room air and denies any shortness of breath, the patient denies any chest pain or cough, patient denies nausea/vomi ting or diarrhea and no abdominal pain, the patient denies pain to the left foot Patient white count of 6.5, creatinine is 2.08, blood culture with morganella Objective - Vital Signs Vital signs: Vital Signs Temp 97 F L 02/12/23 13:07 Pulse 105 H 02/12/23 14:00 Resp 20 02/12/23 14:00 BP 108/71 02/12/23 14:00 Pulse Ox 99 02/12/23 14:00 FiO2 Intake & Output 02/11/23 02/12/23 02/12/23 18:59 06:59 18:59 Intake Total 600 Output Total 750 25 Balance -750 575 Weight 104.7 kg 104.7 kg Intake: IV 600 Output: Urine 750 Estimated Blood Loss 25 Other: Voiding Method Diaper Urinal External Catheter - Exam GENERAL DESCRIPTION: An elderly male lying in bed in no distress RESPIRATORY SYSTEM: Unlabored breathing , clear to auscultation anteriorly HEART: S1 S2 regular rate and rhythm , ABDOMEN: Soft , no tenderness EXTREMITIES: Left foot 5th toe amputation site wound is covered with wound vac - Labs CBC & Chem 7: 02/13/23 07:33 02/13/23 07:33 Labs: Abnormal Lab Results - Last 24 Hours (Table) 02/11/23 02/11/23 02/12/23 Range/Units 16:52 19:51 05:52 RBC (4.30-5.90) m/uL Hgb (13.0-17.5) gm/dL Hct (39.0-53.0) % BUN (9-20) mg/dL Creatinine (0.66-1.25) mg/dL Glucose (74-99) mg/dL POC Glucose (mg/dL) 238 H 246 H 121 H (70-110) mg/dL Calcium (8.4-10.2) mg/dL 02/12/23 02/12/23 Range/Units 06:54 06:54 RBC 2.97 L (4.30-5.90) m/uL Hgb 9.0 L D (13.0-17.5) gm/dL Hct 28.1 L (39.0-53.0) % BUN 47 H (9-20) mg/dL Creatinine 2.08 H (0.66-1.25) mg/dL Glucose 100 H (74-99) mg/dL POC Glucose (mg/dL) (70-110) mg/dL Calcium 8.3 L (8.4-10.2) mg/dL Microbiology - Last 24 Hours (Table) 02/09/23 14:19 Blood Culture Gram Stain - Final Blood Blood Culture - Final Morganella morganii 02/09/23 14:34 Blood Culture - Preliminary Blood 02/09/23 14:42 Gram Stain - Final Foot - Left Wound Culture - Final Morganella morganii Enterococcus faecalis Assessment and Plan (1) Diabetic infection of left foot Current Visit: Yes Status: Acute Code(s): E11.628 - TYPE 2 DIABETES MELLITUS WITH OTHER SKIN COMPLICATIONS; L08.9 - LOCAL INFECTION OF THE SKIN AND SUBCUTANEOUS TISSUE, UNSP SNOMED Code(s): 30569755 (2) Gram-negative bacteremia Current Visit: Yes Status: Acute Code(s): R78.81 - BACTEREMIA SNOMED Code(s): 925003826791 (3) Osteomyelitis Current Visit: Yes Status: Acute Code(s): M86.9 - OSTEOMYELITIS, UNSPECIFIED SNOMED Code(s): 45130344 (4) Sepsis Current Visit: Yes Status: Acute Code(s): A41.9 - SEPSIS, UNSPECIFIED ORGANISM SNOMED Code(s): 12470608 Plan: 1patient presented hospital with sepsis in this patient with fever tachycardia elevated white count source is left diabetic foot infection and concern for underlying osteomyelitis we will need to cover for the polymicrobial john usually associated with diabetic foot infection 2-await surgical debridement and deep culture 3-Morganella bacteremia source is likely left diabetic foot infection 4-Pt to continue with Zosyn and monitor clinical course closely Dictation was produced using [employer] dictation software. please excuse any grammatical, word or spelling errors. Time with Patient: Less than 30
--- NOTE | 2023-02-13 23:49 | P.PN ---
Subjective Progress Note Date: 02/13/23 Principal diagnosis: Left diabetic foot infection and bacteremia Patient is a 67-year-old male with a past medical history significant for diabetes mellitus hypertension hyperlipidemia [place] history of brain cancer in remission and heart failure did have a history of diabetic foot infection and previous right foot transmetatarsal amputation patient is presenting to [facility] ER concerning for an ulceration to the left foot lateral aspect, patient noticed to have a extensive infection to the left foot and also evidence of gram-negative bacteremia, the patient is status post left fifth toe amputation completed on 02/12/2023 On today's evaluation that is 02/13/2023, the patient continues to be afebrile, the patient is breathing comfortably on room air and denies chest pain or cough, patient denies nausea/vomiting or diarrhea and no abdominal pain, the p atient denies pain to the left foot Patient white count of 10.3, creatinine is 2.22, blood culture with morganella , local cultuees with morganella and enterococus Objective - Vital Signs Vital signs: Vital Signs Temp 97.7 F 02/13/23 19:40 Pulse 85 02/13/23 20:43 Resp 18 02/13/23 19:40 BP 117/69 02/13/23 19:40 Pulse Ox 98 02/13/23 19:40 FiO2 Intake & Output 02/13/23 02/13/23 02/14/23 06:59 18:59 05:59 Intake Total 100 Output Total 700 930 Balance -700 100 -930 Weight 104.5 kg Intake: Intake, IV Titration 100 Amount Piperacillin-Tazobactam 3 100 .375 gm In Sodium Chloride 0.9% 100 ml @ 25 mls/hr IVPB Q8H [facility] [place] Rx#: [id number] Output: Urine 700 930 - Exam GENERAL DESCRIPTION: An elderly male lying in bed in no distress RESPIRATORY SYSTEM: Unlabored breathing , clear to auscultation anteriorly HEART: S1 S2 regular rate and rhythm , ABDOMEN: Soft , no tenderness EXTREMITIES: Left foot 5th toe amputation site wound is covered with wound vac - Labs CBC & Chem 7: 02/13/23 07:33 02/13/23 07:33 Labs: Abnormal Lab Results - Last 24 Hours (Table) 02/13/23 02/13/23 02/13/23 Range/Units 07:33 07:33 16:55 RBC 3.31 L (4.30-5.90) m/uL Hgb 10.0 L (13.0-17.5) gm/dL Hct 32.0 L (39.0-53.0) % Neutrophils # 8.4 H (1.3-7.7) k/uL Potassium 5.3 H (3.5-5.1) mmol/L BUN 55 H (9-20) mg/dL Creatinine 2.22 H (0.66-1.25) mg/dL Glucose 64 L (74-99) mg/dL POC Glucose (mg/dL) 115 H (70-110) mg/dL 02/13/23 Range/Units 19:41 RBC (4.30-5.90) m/uL Hgb (13.0-17.5) gm/dL Hct (39.0-53.0) % Neutrophils # (1.3-7.7) k/uL Potassium (3.5-5.1) mmol/L BUN (9-20) mg/dL Creatinine (0.66-1.25) mg/dL Glucose (74-99) mg/dL POC Glucose (mg/dL) 175 H (70-110) mg/dL Microbiology - Last 24 Hours (Table) 02/11/23 15:35 Blood Culture - Preliminary Blood 02/09/23 14:34 Blood Culture - Preliminary Blood Assessment and Plan (1) Diabetic infection of left foot Current Visit: Yes Status: Acute Code(s): E11.628 - TYPE 2 DIABETES MELLITUS WITH OTHER SKIN COMPLICATIONS; L08.9 - LOCAL INFECTION OF THE SKIN AND SUBCUTANEOUS TISSUE, UNSP SNOMED Code(s): 81049577 (2) Gram-negative bacteremia Current Visit: Yes Status: Acute Code(s): R78.81 - BACTEREMIA SNOMED Code(s): 041917958130 (3) Osteomyelitis Current Visit: Yes Status: Acute Code(s): M86.9 - OSTEOMYELITIS, UNSPECIFIED SNOMED Code(s): 29506651 (4) Sepsis Current Visit: Yes Status: Acute Code(s): A41.9 - SEPSIS, UNSPECIFIED ORGANISM SNOMED Code(s): 90772142 Plan: 1patient presented hospital with sepsis in this patient with fever tachycardia elevated white count source is left diabetic foot infection and concern for underlying osteomyelitis we will need to cover for the polymicrobial john usually associated with diabetic foot infection 2-Pt is s/p Left 5th toe amputation and deep culture, which are growing Morganella and enterococus 3-Morganella bacteremia source is likely left diabetic foot infection 4- Pt to continue with zosyn , will need PICC for outpatient IV antibioitcs Dictation was produced using [employer] dictation software. please excuse any grammatical, word or spelling errors. Time with Patient: Less than 30
[2023-02-14 05:23] LABS: Glucose,Whole Blood 57 mg/dL (70-110)
[2023-02-14 05:43] LABS: Glucose,Whole Blood 61 mg/dL (70-110)
[2023-02-14 05:58] LABS: Glucose,Whole Blood 59 mg/dL (70-110)
[2023-02-14 06:16] LABS: Glucose,Whole Blood 96 mg/dL (70-110)
[2023-02-14] MEDS: INSULIN ASPART (NovoLOG) 100 UNIT/ML VIAL SQ SCH ×4 (06:16→20:54)
[2023-02-14] MEDS: PIPERACILLIN-TAZOBACTAM 3.375 GM in SODIUM CHLORIDE 0.9% 100 ML IVPB SCH ×3 (06:18→23:26)
[2023-02-14] MEDS: LACTULOSE 20 GM/30 ML CUP PO SCH (08:58)
[2023-02-14] MEDS: FERROUS SULFATE 325 MG TAB PO SCH (08:58)
[2023-02-14] MEDS: HEPARIN SODIUM,PORCINE 5,000 UNIT/ML 1 ML VIAL SQ SCH ×3 (08:58→23:25)
[2023-02-14] MEDS: SUCRALFATE 1 GM TAB PO SCH ×4 (08:58→20:54)
[2023-02-14] MEDS: CLOPIDOGREL 75 MG TAB PO SCH (08:58)
[2023-02-14] MEDS: ISOSORBIDE MONONITRATE ER 30 MG TAB.ER.24H PO SCH (08:58)
[2023-02-14] MEDS: METOPROLOL TARTRATE 12.5 MG TAB PO SCH ×2 (08:58→20:54)
[2023-02-14] MEDS: ASPIRIN 81 MG PO SCH (08:58)
[2023-02-14] MEDS: FAMOTIDINE 20 MG TAB PO SCH (08:58)
[2023-02-14 08:59] LABS: African American GFR (CKD) 34 (>60 ml/min/1.73 sqM); Anion Gap 13 mmol/L; Blood Urea Nitrogen 57 mg/dL (9-20); Calcium 8.8 mg/dL (8.4-10.2); Carbon Dioxide 23 mmol/L (22-30); Chloride 102 mmol/L (98-107); Glucose 87 mg/dL (74-99); Magnesium 2.2 mg/dL (1.6-2.3); Non-African American GFR(CKD) 29 (>60 ml/min/1.73 sqM); Potassium 4.5 mmol/L (3.5-5.1); Sodium 138 mmol/L (137-145)
[2023-02-14] MEDS ORDERED: FUROSEMIDE 40 MG TAB PO SCH (09:00)
[2023-02-14] MEDS: HYDROcodone/APAP 5-325MG 1 EACH TAB PO PRN (09:11)
[2023-02-14] MEDS: IPRATROPIUM-ALBUTEROL 3 ML NEB INHALATION PRN ×2 (09:47→15:40)
[2023-02-14] MEDS ORDERED: bisacodyL 5 MG TABLET.DR PO PRN (10:09)
--- NOTE | 2023-02-14 10:35 | P.PN ---
Subjective Progress Note Date: 02/14/23 Patient is a 67-year-old male with diabetes, hypertension, systolic congestive heart failure with ejection fraction 25% that is well-known to our service from multiple recent hospitalizations who presented to the ER at the direction of his home care nurse due to worsening left foot wound. The ER he underwent an extensive evaluation. Workup revealed possible osteomyelitis of the left fifth toe with sepsis. The patient was started on vancomycin and Zosyn. Arrangements are made for admission. Infectious disease was consulted. Vascular surgery was also consulted and recommended amputation of the left fifth toe. Patient's blood cultures returned positive for Morganella. His left foot wound cultures then came back positive for Morganella and Enterobacter. Infectious disease recommended discontinuing vancomycin and continuing with Zosyn. Patient did undergo invitations will left fifth toe with wound VAC placement on 02/12/23. He had significant hypoglycemia on the morning of 02/14. Patient seen and examined at bedside. He continues to have some swelling in his lower extremities. He has shortness of breath today. He has constipation, he does not want more stool softners at this time. Vital signs reviewed General: nontoxic, no distress, appears at stated age Cardiovascular: S1S2 reg, no murmur, positive posterior tibial pulse bilateral, Lungs: Ronchi b/l bases , no accessory muscle use Abdominal: soft, nontender to palpation, no guarding, no appreciable org anomegaly Ext: no gross muscle atrophy, + edema left LE Neuro: CN II-XI grossly intact, no focal neuro deficits Psych: Alert, oriented, appropriate affect Assessment/Plan: Sepsis secondary to left foot osteomyelitis status post left fifth toe amputation, diabetic foot infection Morganella bacteremia Peripheral arterial disease -CRP 11.6 on admission -Zosyn 3.375 g IV every 8 hours D # 6 -Wound cultures with Morganella and enterococcus, blood cultures positive for Morganella. Repeat blood cultures negative for 24 hours -Use [place] one tablet every 6 hours as needed for moderate pain, Dilaudid 0.5 mg IV every 6 hours as needed for severe pain - conitnue with cound vac, - CBC in AM to monitor for ongoing blood loss. - Infectious disease note reviewed from 02/13: Will need PICC line for outpatient IV antibiotics, continue Zosyn. - Vascular no reviewed from 02/13: Continue with aspirin, Plavix, and wound VAC. Acute exacerbation of systolic congestive heart failure with ejection fraction 25% Elevated troponin, nonischemic CAD status post CABG Acute on chronic hypoxic respiratory failure - Cardiology to review 02/13: Decreased dose of Lasix from twice a day to once daily to follow renal function - Aspirin 81 mg daily, Lipitor 80 mg at night, Plavix 75 mg daily, Lopressor 12.5 mg daily, ARB on hold due to ROSE - Imdur 30 mg daily - check CXR Insulin-dependent diabetes, with hypoglycemia -A1c 7.4 - Decrease levemir to 40 units at night. SSI - Trulicity on hold Acute kidney injury -Hold losartan for now -Monitor I's and O's -Renal ultrasound: Unable to visualize left kidney, right kidney appears prominent -Consult nephrology due to conitnued Cr increase - On Laisx 40 PO once daily -Acute kidney injury possibly in the setting of cardiorenal syndrome - Baseline Cr 1.23 - repeat BMP in AM Imaging: Left lower extremity Doppler: No DVT Data Review: Labs reviewed from today include basic metabolic profile and blood sugars. Patient didn't have significant hypoglycemia overnight. BMP remarkable for BUN 57 and creatinine 2.28 DVT prophylaxis: Heparin Anticipated discharge date: Pending Clinical Course Anticipated discharge place: Pending Clinical Course This dictation was prepared using [employer] voice recognition software. Though every attempt is made to correct errors during dictation some may still exist. Objective - Vital Signs Vital signs: Vital Signs Temp 97.8 F 02/14/23 07:25 Pulse 85 02/14/23 10:01 Resp 16 02/14/23 10:01 BP 130/78 02/14/23 07:25 Pulse Ox 95 02/14/23 07:25 FiO2 Intake & Output 02/13/23 02/14/23 02/14/23 19:59 06:59 18:59 Intake Total Output Total 300 Balance -300 Intake: Intake, IV Titration Amount Piperacillin-Tazobactam 3 .375 gm In Sodium Chloride 0.9% 100 ml @ 25 mls/hr IVPB Q8H [facility] Rx#: [id number] Output: Urine 300 - Labs CBC & Chem 7: 02/13/23 07:33 02/14/23 06:39 Labs: Abnormal Lab Results - Last 24 Hours (Table) 02/13/23 02/13/23 02/14/23 Range/Units 16:55 19:41 05:22 BUN (9-20) mg/dL Creatinine (0.66-1.25) mg/dL POC Glucose (mg/dL) 115 H 175 H 57 L (70-110) mg/dL 02/14/23 02/14/23 02/14/23 Range/Units 05:38 05:54 06:39 BUN 57 H (9-20) mg/dL Creatinine 2.28 H (0.66-1.25) mg/dL POC Glucose (mg/dL) 61 L 59 L (70-110) mg/dL Microbiology - Last 24 Hours (Table) 02/11/23 15:35 Blood Culture - Preliminary Blood
--- NOTE | 2023-02-14 11:01 | XR ---
EXAMINATION TYPE: XR chest 1V portable DATE OF EXAM: 02/14/2023 10:40 AM CLINICAL INDICATION:Male, 67 years old with history of shortness of breath; [facility] COMPARISON: Chest radiographs from 02/09/2023 TECHNIQUE: XR chest 1V portable Frontal view of the chest. FINDINGS: Lungs/Pleura: Prominent interstitial lung markings are seen scattered throughout the lungs with penny ening of the diaphragm and increased lucency of the lung apices. No evidence of focal consolidation, pneumothorax or pleural effusion. Pulmonary vascularity: Unremarkable. Heart/mediastinum: Cardiomediastinal silhouette is enlarged and stable. Musculoskeletal: No acute osseous pathology. Other findings: None IMPRESSION: No acute cardiopulmonary disease/process.
[2023-02-14] MEDS ORDERED: FUROSEMIDE 10 MG/ML 4 ML VIAL IV STA (11:26)
--- NOTE | 2023-02-14 11:28 | P.PN ---
Subjective Progress Note Date: 02/14/23 This is a Pleasant 67-year-old gentleman who follows with Dr. Mai in the office he has a known history of hypertension, hyperlipidemia, diabetes, CAD, cardiomyopathy with an ejection fraction of 25-30% in December of this year, and peripheral arterial disease status post PTCA on 01/20/2023 of the left, prior amputation of the distal right foot done at [facility]. He was admitted to the hospital recently with congestive heart failure. At that time he was diuresed and discharged home on some tolerated and when directed medical therapy. During that admission he was noted to have a wound on his left fifth toe that appeared to be infected. He presented this admission due to the infected foot wound. There was evidence of osteomyelitis. He underwent left fifth toe amputation with debridement and placement of wound VAC yesterday by Dr. Short. We were asked to see the patient in consultation due to recent left SFA intervention. From a cardiac standpoint he continues to feel short of breath with some orthopnea but this appears to be relatively stable. He's had no chest discomfort. He has worsening edema in the left lower extremity, stable mild edema in the right lower extremity. He's had no palpitations, dizziness or syncope. Vital signs have been stable. Labs show worsening renal function with a BUN of 55 and creatinine 2.22. 02/14/2023 She was seen and examined resting comfortably in a chair. BUN and creatinine look a bit worse today despite decreasing diuretics and his feeling more congested with a cough and more wheezing as well as worsening edema. Vital signs and stable. Objective - Vital Signs Vital signs: Vital Signs Temp 97.8 F 02/14/23 07:25 Pulse 85 02/14/23 10:01 Resp 16 02/14/23 10:01 BP 130/78 02/14/23 07:25 Pulse Ox 95 02/14/23 07:25 FiO2 Intake & Output 02/13/23 02/14/23 02/14/23 19:59 06:59 18:59 Intake Total 100 Output Total 300 Balance -200 Intake: Intake, IV Titration 100 Amount Piperacillin-Tazobactam 3 100 .375 gm In Sodium Chloride 0.9% 100 ml @ 25 mls/hr IVPB Q8H [facility] Rx#: [id number] Output: Urine 300 - Exam HEENT: Head is atraumatic, normocephalic. Pupils are equal, round. Sclerae anicteric. Conjunctivae are clear. Mucous membranes of the mouth are moist. Neck is supple. There is no elevated jugular venous pressure. No carotid bruit is heard. CHEST EXAMINATION: Lungs diminished to auscultation bilaterally with faint end expiratory wheeze. Respirations even and nonlabored. HEART EXAMINATION: Heart regular, positive S1 and S2. No S3. No S4. No clicks, rubs or murmurs. ABDOMEN: Soft, nontender. Bowel sounds are heard. No organomegaly noted. EXTREMITIES: Length of old transmetatarsal amputation of the right foot, new amputation of the left fifth toe with wound VAC in place, trace to 1+ right lower extremity edema and 2+ left lower extremity edema. Edema appears worse compared to yesterday NEUROLOGIC EXAMINATION: Patient is awake, alert and oriented x3. - Labs CBC & Chem 7: 02/13/23 07:33 02/14/23 06:39 Labs: Abnormal Lab Results - Last 24 Hours (Table) 02/13/23 02/13/23 02/14/23 Range/Units 16:55 19:41 05:22 BUN (9-20) mg/dL Creatinine (0.66-1.25) mg/dL POC Glucose (mg/dL) 115 H 175 H 57 L (70-110) mg/dL 02/14/23 02/14/23 02/14/23 Range/Units 05:38 05:54 06:39 BUN 57 H (9-20) mg/dL Creatinine 2.28 H (0.66-1.25) mg/dL POC Glucose (mg/dL) 61 L 59 L (70-110) mg/dL Microbiology - Last 24 Hours (Table) 02/11/23 15:35 Blood Culture - Preliminary Blood Assessment and Plan Assessment: 1 infected left foot wound with evidence of osteomyelitis status post amputation of the left fifth toe with wound VAC placement #2 CAD with known chronic total occlusion of the distal RCA and intermediate disease involving the OM1 #3 PAD with recent ADMINISTRATION PHYSICIAN involving the left SFA 4 hypertension 5 hyperlipidemia #6 COPD 7 chronic hypoxic respiratory failure on home O2 8 diabetes Plan: From cardiology's perspective we will increase po lasix to BID and give one dose 40 mg IV lasix now. We will follow the renal function. Follow blood pressure. Further recommendations in regards to resuming ARB and/or oral nitrate depending on renal function and blood pressure. Continue to follow the patient and provide Further recommendations accordingly. REIKI PRACTITIONER note has been reviewed, I agree with a documented findings and plan of care. Patient was seen and examined.
[2023-02-14 11:53] LABS: Glucose,Whole Blood 148 mg/dL (70-110)
--- NOTE | 2023-02-14 12:11 | P.NPCON ---
History of Present Illness - Reason for Consult acute renal failure - History of Present Illness Reason for consultation: Acute kidney injury History of present illness: Patient is a 67-year-old male seen in renal consultation for acute kidney injury. Patient's baseline creatinine is near 1 from November 2022. This admission and was 1.23 and is up to 2.28 this morning. Patient came to the hospital on 02/09/2023 due to left foot ulceration. Patient states the wound looked worse and was having malodorous drainage. Patient underwent amputation of the left fifth toe with application of the wound VAC on 02/12/2023. He does admit to edema in his lower 70s. Patient has long-standing history of diabetes. He denies use of nonsteroidals. Patient does admit to peripheral arterial disease with prior stenting. Denies coronary artery disease. Denies family history of renal disease. He denies seeing the chairperson anesthesiology outpatient. No gross hematuria. No chest pain or shortness of breath. Hemodynamically stable. [place] ultrasound showed no hydronephrosis of the right kidney and nonvisualization of left kidney. Oral intake is good. No vomiting or diarrhea. Vital signs are stable. General: No acute distress. HEENT: Head exam is unremarkable. LUNGS: No audible rhonchi or wheezes. HEART: Rate and Rhythm are regular. ABDOMEN: Obese, nontender. EXTREMITITES: Left lower extremity 2+ edema. 1+ edema right lower exam. Amputation of toes noted. Past Medical History Past Medical History: Cancer, Heart Failure, Dementia, Diabetes Mellitus, GERD/Reflux, Hearing Disorder / Deafness, Hyperlipidemia, Hypertension, Myocardial Infarction (ND), Osteoarthritis (OA), Pneumonia Additional Past Medical History / Comment(s): Brain CA (30 years ago) in remission. 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 Mother Additional Family Medical History / Comment(s): Mother had a bad heart. Medications and Allergies Home Medications Medication Instructions Recorded Confirmed Type Aspirin EC [Ecotrin Low Dose] 81 mg PO DAILY@0800 01/12/19 02/09/23 History Atorvastatin [Lipitor] 80 mg PO HS@199901/12/19 02/09/23 History Clopidogrel Bisulfate [Plavix] 75 mg PO DAILY@0800 07/28/21 02/09/23 History Ferrous Sulfate [Iron (65 MG 325 mg PO DAILY@0800 07/28/21 02/09/23 History Elemental)] Ipratropium-Albuterol Nebulize 3 ml INHALATION RT-QID PRN 07/28/21 02/09/23 History [Duoneb 0.5 mg-3 mg/3 ml Soln] Famotidine [Pepcid] 20 mg PO BID@0800,199903/18/22 02/09/23 History Dulaglutide [Trulicity] 1.5 mg SQ TH 04/01/22 02/09/23 History Insulin Aspart (Niacinamide) 25 units SQ BID 04/01/22 02/09/23 History [Fiasp 100 Unit/ml Flextouch Pen] Insulin Glargine,Hum.rec.anlog 75 units SQ HS 04/01/22 02/09/23 History [Basaglar Kwikpen U-100] Topiramate [Topamax] 25 mg PO HS@199904/01/22 02/09/23 History Acetaminophen [Tylenol] 650 mg PO QID PRN 04/22/22 02/09/23 History Albuterol Sulfate [Albuterol 1 - 2 puff INHALATION RT-Q4H PRN 04/22/22 02/09/23 History Sulfate Hfa] Dicyclomine 10mg/5ml Oral Solution 10 mg PO TID@0800,1700,199907/06/22 02/09/23 History Isosorbide Mononitrate ER [Imdur] 30 mg PO DAILY@0800 07/06/22 02/09/23 History Lactulose [Cephulac] 20 gm PO DAILY@0800 10/15/22 02/09/23 History traMADol HCL 50 mg PO Q6H 10/15/22 02/09/23 History Nitroglycerin Sl Tabs [Nitrostat] 0.4 mg SL Q5M PRN 10/20/22 02/09/23 History Metoprolol Tartrate [Lopressor] 12.5 mg PO BID@0800,199912/08/22 02/09/23 History Sucralfate [Sucralfate Oral Susp] 1 gm PO ACHS@08,12,17,12/08/22 02/09/23 His tory Collagenase [Santyl Ointment] 1 applic TOPICAL DAILY 02/01/23 02/09/23 History Furosemide [Lasix] 40 mg PO TID #0 02/03/23 02/09/23 Rx Losartan [Cozaar] 12.5 mg PO DAILY #0 tab 02/03/23 02/09/23 Rx Allergies Allergy/AdvReac Type Severity Reaction Status Date / Time furosemide [From Lasix] AdvReac Unknown Verified 02/09/23 13:59 sacubitril [From Entresto] AdvReac made him Verified 02/09/23 13:59 hypotensive valsartan [From Entresto] AdvReac made him Verified 02/09/23 13:59 hypotensive Physical Exam Vitals: Vital Signs Temp Pulse Pulse Resp BP Pulse Ox 02/14/23 10:01 85 16 02/14/23 09:47 85 16 02/14/23 07:25 97.8 F 85 20 130/78 95 02/13/23 23:59 97.7 F 90 18 119/75 96 02/13/23 20:43 85 02/13/23 20:33 84 02/13/23 19:40 97.7 F 87 18 117/69 98 02/13/23 16:15 80 02/13/23 15:57 80 02/13/23 14:34 97.8 F 75 19 106/66 98 Intake and Output 02/13/23 02/14/23 02/14/23 23:59 06:59 14:59 Intake Total 100 Output Total 300 Balance -200 Intake: Intake, IV Titration 100 Amount Piperacillin-Tazobactam 3 100 .375 gm In Sodium Chloride 0.9% 100 ml @ 25 mls/hr IVPB Q8H [facility] Rx#: [id number] Output: Urine 300 Results - Lab Results Most recent lab results Calcium 8.8 mg/dL (8.4-10.2) 02/14/23 06:39 Magnesium 2.2 mg/dL (1.6-2.3) 02/14/23 06:39 02/13/23 07:33 02/14/23 06:39 Assessment and Plan Plan: Assessment: 1. Acute kidney injury secondary to septic ATN. Creatinine 1.23 on admission and up to 2.28 today. No hydronephrosis noted on kidney ultrasound. Left kidney not visualized. Rule out urinary retention. Baseline creatinine near 1 from November 2022. 2. Left foot osteomyelitis status post amputation of left fifth toe this admission. Also noted to be bacteremic. On IV antibiotics. 3. Diabetes mellitus. 4. Volume overload. 5. Coronary artery disease status post CABG. Plan: Agree with Lasix. Check bladder scan to rule out urinary retention. Repeat UA. Avoid nephrotoxins. Continue to monitor renal function and urine output. Thank you for the consultation. I will continue to follow the patient with you during his hospital stay.
[2023-02-14 12:45] LABS: Prothrombin Time 11.1 sec (10.0-12.5)
--- NOTE | 2023-02-14 14:17 | P.PN ---
Subjective Progress Note Date: 02/14/23 Principal diagnosis: Left diabetic foot infection and bacteremia Patient is a 67-year-old male with a past medical history significant for diabetes mellitus hypertension hyperlipidemia AL history of brain cancer in remission and heart failure did have a history of diabetic foot infection and previous right foot transmetatarsal amputation patient is presenting to [facility] ER concerning for an ulceration to the left foot lateral aspect, patient noticed to have a extensive infection to the left foot and also evidence of gram-negative bacteremia, the patient is status post left fifth toe amputation completed on 02/12/2023 On today's evaluation that is 02/14/2023, the patient denies any fever or any chills, the patient is breathing comfortably on room air and no need for supplemental oxygen, the patient denies any chest pain and no cough or sputum production, patient denies Abdominal pain and no nausea/vomiting or diarrhea , the patient denies pain to the left foot Patient white count of 10.3 as of yesterday, creatinine is 2.28, blood culture with morganella , local cultuees with morganella and enterococus Objective - Vital Signs Vital signs: Vital Signs Temp 97.8 F 02/14/23 07:25 Pulse 85 02/14/23 10:01 Resp 16 02/14/23 10:01 BP 130/78 02/14/23 07:25 Pulse Ox 95 02/14/23 07:25 FiO2 Intake & Output 02/13/23 02/14/23 02/14/23 19:59 06:59 18:59 Intake Total 100 Output Total 300 Balance -200 Intake: Intake, IV Titration 100 Amount Piperacillin-Tazobactam 3 100 .375 gm In Sodium Chloride 0.9% 100 ml @ 25 mls/hr IVPB Q8H [facility] Rx#: [id number] Output: Urine 300 - Exam GENERAL DESCRIPTION: An elderly male lying in bed in no distress RESPIRATORY SYSTEM: Unlabored breathing , clear to auscultation anteriorly HEART: S1 S2 regular rate and rhythm , ABDOMEN: Soft , no tenderness EXTREMITIES: Left foot 5th toe amputation site wound is covered with wound vac - Labs CBC & Chem 7: 02/13/23 07:33 02/14/23 06:39 Labs: Abnormal Lab Results - Last 24 Hours (Table) 02/13/23 02/13/23 02/14/23 Range/Units 16:55 19:41 05:22 BUN (9-20) mg/dL Creatinine (0.66-1.25) mg/dL POC Glucose (mg/dL) 115 H 175 H 57 L (70-110) mg/dL 02/14/23 02/14/23 02/14/23 Range/Units 05:38 05:54 06:39 BUN 57 H (9-20) mg/dL Creatinine 2.28 H (0.66-1.25) mg/dL POC Glucose (mg/dL) 61 L 59 L (70-110) mg/dL 02/14/23 Range/Units 11:51 BUN (9-20) mg/dL Creatinine (0.66-1.25) mg/dL POC Glucose (mg/dL) 148 H (70-110) mg/dL Microbiology - Last 24 Hours (Table) 02/11/23 15:35 Blood Culture - Preliminary Blood Assessment and Plan (1) Diabetic infection of left foot Current Visit: Yes Status: Acute Code(s): E11.628 - TYPE 2 DIABETES MELLITUS WITH OTHER SKIN COMPLICATIONS; L08.9 - LOCAL INFECTION OF THE SKIN AND SUBCUTANEOUS TISSUE, UNSP SNOMED Code(s): 35610505 (2) Gram-negative bacteremia Current Visit: Yes Status: Acute Code(s): R78.81 - BACTEREMIA SNOMED Code(s): 441463478070 (3) Osteomyelitis Current Visit: Yes Status: Acute Code(s): M86.9 - OSTEOMYELITIS, UNSPECIFIED SNOMED Code(s): 91574888 (4) Sepsis Current Visit: Yes Status: Acute Code(s): A41.9 - SEPSIS, UNSPECIFIED ORGANISM SNOMED Code(s): 86555211 Plan: 1patient presented hospital with sepsis in this patient with fever tachycardia elevated white count source is left diabetic foot infection and concern for underlying osteomyelitis we will need to cover for the polymicrobial john usually associated with diabetic foot infection 2-Pt is s/p Left 5th toe amputation and deep culture, which are growing Morganella and enterococus 3-Morganella bacteremia source is likely left diabetic foot infection 4-patient seemed to have her clinical improvement and will with zosyn , will need PICC for outpatient IV antibioitcs once cleared by nephrology for PICC line placement Dictation was produced using [employer] dictation software. please excuse any gramma tical, word or spelling errors. Time with Patient: Less than 30
[2023-02-14] MEDS: FUROSEMIDE 40 MG TAB PO SCH (16:00)
[2023-02-14 16:20] LABS: Appearance,Urine Clear (Clear); Bilirubin,Urine Negative (Negative); Blood,Urine Negative (Negative); Color,Urine Colorless; Glucose,Urine (UA) Negative (Negative); Ketones,Urine Negative (Negative); Leukocyte Esterase,Urine Negative (Negative); Nitrite,Urine Negative (Negative); Protein,Urine Negative (Negative); Specific Gravity,Urine 1.007 (1.001-1.035); Urobilinogen,Urine <2.0 mg/dL (<2.0)
[2023-02-14 16:52] LABS: Glucose,Whole Blood 148 mg/dL (70-110)
[2023-02-14 19:30] LABS: Glucose,Whole Blood 208 mg/dL (70-110)
[2023-02-14] MEDS: TOPIRAMATE 25 MG TAB PO SCH (20:54)
[2023-02-14] MEDS: ATORVASTATIN 80 MG TAB PO SCH (20:54)
[2023-02-14] MEDS ORDERED: INSULIN DETEMIR (LEVEMIR) 100 UNIT/ML SYR SQ SCH ×2 (21:00)
[2023-02-14] MEDS ORDERED: NITROGLYCERIN SL TABS 0.4 MG TAB SUBLINGUAL PRN (21:04)
[2023-02-14] MEDS: ALBUTEROL NEBULIZED 2.5 MG/3 ML INHALATION PRN (21:24)
[2023-02-15] MEDS ORDERED: HEPARIN SODIUM 1,000 UN/ML (10ML VL) IV PRN (00:08)
[2023-02-15] MEDS ORDERED: HEPARIN SOD,PORK IN 0.45% NACL 25,000 UNIT in 0.45% NACL 1 250ML.BAG IV SCH (00:15)
[2023-02-15 02:12] LABS: Partial Thromboplastin Time 28.2 sec (22.0-30.0); Prothrombin Time 10.6 sec (10.0-12.5)
--- NOTE | 2023-02-15 03:37 | P.EN ---
Notified by the RN at around 12 AM that the patient developed acute chest discomfort for which he takes nitroglycerin at home. Sublingual nitroglycerin was ordered along with troponin levels and an EKG. Troponin level was ordered and was 0.126 (previously 0.072 on 02/09/23). EKG was obtained showing sinus rhythm with PVCs at 91 bpm with a right bundle branch block and diffuse T-wave abnormalities (unchanged from EKG from 02/12/23). Patient was seen at the bedside and reported that his pain resolved with nitroglycerin and reported no further chest discomfort and had no additional complaints. Case was discussed with cardiology who recommended heparin infusion without a bolus. The patient is currently on aspirin, Plavix, Lipitor, and Lopressor. Cardiac monitoring was initiated and the patient was transferred to [facility]
[2023-02-15 06:21] LABS: Glucose,Whole Blood 110 mg/dL (70-110)
[2023-02-15] MEDS: INSULIN ASPART (NovoLOG) 100 UNIT/ML VIAL SQ SCH ×4 (06:30→20:17)
[2023-02-15] MEDS: PIPERACILLIN-TAZOBACTAM 3.375 GM in SODIUM CHLORIDE 0.9% 100 ML IVPB SCH ×2 (06:31→17:27)
[2023-02-15 07:25] LABS: HCT 32.6 % (39.0-53.0); HGB 10.5 gm/dL (13.0-17.5); MCH 29.7 pg (25.0-35.0); MCHC 32.4 g/dL (31.0-37.0); Mean Platelet Volume 8.9; Platelet Count 267 k/uL (150-450); RBC 3.55 m/uL (4.30-5.90); WBC 10.9 k/uL (3.8-10.6)
[2023-02-15 07:38] LABS: MCV 91.8 fL (80.0-100.0)
[2023-02-15 07:45] LABS: African American GFR (CKD) 37 (>60 ml/min/1.73 sqM); Anion Gap 11 mmol/L; Blood Urea Nitrogen 54 mg/dL (9-20); Calcium 9.1 mg/dL (8.4-10.2); Carbon Dioxide 28 mmol/L (22-30); Chloride 103 mmol/L (98-107); Glucose 107 mg/dL (74-99); Non-African American GFR(CKD) 32 (>60 ml/min/1.73 sqM); Potassium 4.1 mmol/L (3.5-5.1); Sodium 142 mmol/L (137-145)
[2023-02-15] MEDS: LACTULOSE 20 GM/30 ML CUP PO SCH (08:56)
[2023-02-15] MEDS: METOPROLOL TARTRATE 12.5 MG TAB PO SCH ×2 (08:56→20:16)
[2023-02-15] MEDS: ASPIRIN 81 MG PO SCH (08:56)
[2023-02-15] MEDS: FUROSEMIDE 40 MG TAB PO SCH ×2 (08:57→17:27)
[2023-02-15] MEDS: SUCRALFATE 1 GM TAB PO SCH ×4 (08:57→20:16)
[2023-02-15] MEDS: FERROUS SULFATE 325 MG TAB PO SCH (08:57)
[2023-02-15] MEDS: ISOSORBIDE MONONITRATE ER 30 MG TAB.ER.24H PO SCH (08:57)
[2023-02-15] MEDS: CLOPIDOGREL 75 MG TAB PO SCH (08:57)
[2023-02-15] MEDS: FAMOTIDINE 20 MG TAB PO SCH (08:57)
[2023-02-15] MEDS: HYDROcodone/APAP 5-325MG 1 EACH TAB PO PRN (09:11)
[2023-02-15] MEDS: IPRATROPIUM-ALBUTEROL 3 ML NEB INHALATION PRN ×4 (09:12→21:15)
--- NOTE | 2023-02-15 11:09 | P.PN ---
Subjective Progress Note Date: 02/15/23 Principal diagnosis: Osteomyelitis Patient is seen and examined today as follow-up. He is postop day #3 for left fifth toe amputation with wound VAC application. Apparently early this morning there was an A-team called regarding chest pain. Patient had elevated troponins 2. He was given nitroglycerin and reportedly pain has subsided. Cardiology is following. He denies any pain to his foot at this time. He remains on IV antibiotics. Plan is for PICC line placement for home antibiotics per recommendations from infectious disease. He's been afebrile. Objective - Vital Signs Vital signs: Vital Signs Temp 97.9 F 02/15/23 08:00 Pulse 88 02/15/23 09:21 Resp 18 02/15/23 08:00 BP 174/96 02/15/23 08:00 Pulse Ox 95 02/15/23 09:13 FiO2 Intake & Output 02/14/23 02/15/23 02/15/23 18:59 06:59 18:59 Intake Total 100 Output Total 1650 1900 300 Balance -1550 -1900 -300 Weight 125.5 kg Intake: Intake, IV Titration 100 Amount Piperacillin-Tazobactam 3 100 .375 gm In Sodium Chloride 0.9% 100 ml @ 25 mls/hr IVPB Q8H [facility] Rx#: [id number] Output: Urine 1650 1900 300 Other: Voiding Method Urinal # Voids 2 # Bowel Movements 1 - Exam General appearance: The patient is alert, oriented, appears in no acute distress. HET: Head is normocephalic and atraumatic. Pupils are equal and reactive. Neck: Supple. Abdomen: Soft, nondistended. Extremities: Bilateral lower extremity swelling. Left foot with wound VAC in place with good suction. Neurological: Alert and oriented. No focal deficits noted. - Labs CBC & Chem 7: 02/15/23 07:11 02/15/23 07:11 Labs: Abnormal Lab Results - Last 24 Hours (Table) 02/14/23 02/14/23 02/14/23 Range/Units 11:51 16:51 19:28 WBC (3.8-10.6) k/uL RBC (4.30-5.90) m/uL Hgb (13.0-17.5) gm/dL Hct (39.0-53.0) % APTT (22.0-30.0) sec BUN (9-20) mg/dL Creatinine (0.66-1.25) mg/dL Glucose (74-99) mg/dL POC Glucose (mg/dL) 148 H 148 H 208 H (70-110) mg/dL Troponin I (0.000-0.034) ng/mL 02/14/23 02/15/23 02/15/23 Range/Units 21:25 01:14 07:11 WBC 10.9 H (3.8-10.6) k/uL RBC 3.55 L (4.30-5.90) m/uL Hgb 10.5 L (13.0-17.5) gm/dL Hct 32.6 L (39.0-53.0) % APTT (22.0-30.0) sec BUN (9-20) mg/dL Creatinine (0.66-1.25) mg/dL Glucose (74-99) mg/dL POC Glucose (mg/dL) (70-110) mg/dL Troponin I 0.126 H* 0.134 H* (0.000-0.034) ng/mL 02/15/23 02/15/23 Range/Units 07:11 07:11 WBC (3.8-10.6) k/uL RBC (4.30-5.90) m/uL Hgb (13.0-17.5) gm/dL Hct (39.0-53.0) % APTT 45.4 H (22.0-30.0) sec BUN 54 H (9-20) mg/dL Creatinine 2.09 H (0.66-1.25) mg/dL Glucose 107 H (74-99) mg/dL POC Glucose (mg/dL) (70-110) mg/dL Troponin I (0.000-0.034) ng/mL Microbiology - Last 24 Hours (Table) 02/11/23 15:35 Blood Culture - Preliminary Blood 02/09/23 14:34 Blood Culture - Final Blood Assessment and Plan Assessment: 1. Osteomyelitis of left fifth toe that is posted toe amputation with wound VAC application 2. History of peripheral arterial disease status post recent angioplasty of left SFA and stenting of right SFA 3. History coronary artery disease 4. Diabetes mellitus 5. Hypertension 6. Hyperlipidemia Plan: 1. Continue antibiotics per recommendations from infectious disease 2. Keep wound VAC in place, change Wednesday 3. Continue aspirin and Plavix 4. Cardiology was consulted for history of peripheral arterial disease with recent revascularization 5. Consult to wound care, patient will need to follow for outpatient wound care and management of wound VAC Thank you for this consultation, we will continue to follow. The impression and plan of care has been dictated as directed. Dr. Cole I performed a history and examination of this patient, discussed the same with the dictator. I agree with the dictator's note ,documented as a scribe. Any additional findings or plans will be noted.
--- NOTE | 2023-02-15 11:15 | P.PN ---
Subjective Progress Note Date: 02/15/23 Principal diagnosis: Left diabetic foot infection and bacteremia Patient is a 67-year-old male with a past medical history significant for diabetes mellitus hypertension hyperlipidemia CT history of brain cancer in remission and heart failure did have a history of diabetic foot infection and previous right foot transmetatarsal amputation patient is presenting to [facility] ER concerning for an ulceration to the left foot lateral aspect, patient noticed to have a extensive infection to the left foot and also evidence of gram-negative bacteremia, the patient is status post left fifth toe amputation completed on 02/12/2023 On today's evaluation that is02/15/2023, the patient remains to be afebrile, the patient is breathing comfortably on 2 L nasal cannula oxygen, the patient denies any chest pain or cough and no sputum production, patient denies nausea/vomiting or diarrhea , no abdominal pain, the patient denies pain to the left foot Patient white count of 10.9, creatinine is 2.09, blood culture with morganella , local cultures with morganella and enterococus Objective - Vital Signs Vital signs: Vital Signs Temp 97.9 F 02/15/23 08:00 Pulse 88 02/15/23 09:21 Resp 18 02/15/23 08:00 BP 174/96 02/15/23 08:00 Pulse Ox 95 02/15/23 09:13 FiO2 Intake & Output 02/14/23 02/15/23 02/15/23 18:59 06:59 18:59 Intake Total 100 Output Total 1650 1900 1000 Balance -1550 -1900 -1000 Weight 125.5 kg Intake: Intake, IV Titration 100 Amount Piperacillin-Tazobactam 3 100 .375 gm In Sodium Chloride 0.9% 100 ml @ 25 mls/hr IVPB Q8H [facility] [place] Rx#: [id number] Output: Urine 1650 1900 1000 Other: Voiding Method Urinal # Voids 2 # Bowel Movements 1 - Exam GENERAL DESCRIPTION: An elderly male lying in bed in no distress RESPIRATORY SYSTEM: Unlabored breathing , clear to auscultation anteriorly HEART: S1 S2 regular rate and rhythm , ABDOMEN: Soft , no tenderness EXTREMITIES: Left foot 5th toe amputation site wound is covered with wound vac - Labs CBC & Chem 7: 02/15/23 07:11 02/15/23 07:11 Labs: Abnormal Lab Results - Last 24 Hours (Table) 02/14/23 02/14/23 02/14/23 Range/Units 11:51 16:51 19:28 WBC (3.8-10.6) k/uL RBC (4.30-5.90) m/uL Hgb (13.0-17.5) gm/dL Hct (39.0-53.0) % APTT (22.0-30.0) sec BUN (9-20) mg/dL Creatinine (0.66-1.25) mg/dL Glucose (74-99) mg/dL POC Glucose (mg/dL) 148 H 148 H 208 H (70-110) mg/dL Troponin I (0.000-0.034) ng/mL 02/14/23 02/15/23 02/15/23 Range/Units 21:25 01:14 07:11 WBC 10.9 H (3.8-10.6) k/uL RBC 3.55 L (4.30-5.90) m/uL Hgb 10.5 L (13.0-17.5) gm/dL Hct 32.6 L (39.0-53.0) % APTT (22.0-30.0) sec BUN (9-20) mg/dL Creatinine (0.66-1.25) mg/dL Glucose (74-99) mg/dL POC Glucose (mg/dL) (70-110) mg/dL Troponin I 0.126 H* 0.134 H* (0.000-0.034) ng/mL 02/15/23 02/15/23 Range/Units 07:11 07:11 WBC (3.8-10.6) k/uL RBC (4.30-5.90) m/uL Hgb (13.0-17.5) gm/dL Hct (39.0-53.0) % APTT 45.4 H (22.0-30.0) sec BUN 54 H (9-20) mg/dL Creatinine 2.09 H (0.66-1.25) mg/dL Glucose 107 H (74-99) mg/dL POC Glucose (mg/dL) (70-110) mg/dL Troponin I (0.000-0.034) ng/mL Microbiology - Last 24 Hours (Table) 02/11/23 15:35 Blood Culture - Preliminary Blood 02/09/23 14:34 Blood Culture - Final Blood Assessment and Plan (1) Diabetic infection of left foot Current Visit: Yes Status: Acute Code(s): E11.628 - TYPE 2 DIABETES MELLITUS WITH OTHER SKIN COMPLICATIONS; L08.9 - LOCAL INFECTION OF THE SKIN AND SUBCUTANEOUS TISSUE, UNSP SNOMED Code(s): 22722835 (2) Gram-negative bacteremia Current Visit: Yes Status: Acute Code(s): R78.81 - BACTEREMIA SNOMED Code(s): 709477294704 (3) Osteomyelitis Current Visit: Yes Status: Acute Code(s): M86.9 - OSTEOMYELITIS, UNSPECIFIED SNOMED Code(s): 06809637 (4) Sepsis Current Visit: Yes Status: Acute Code(s): A41.9 - SEPSIS, UNSPECIFIED ORGANISM SNOMED Code(s): 53252270 Plan: 1patient presented hospital with sepsis in this patient with fever tachycardia elevated white count source is left diabetic foot infection and concern for underlying osteomyelitis we will need to cover for the polymicrobial john usually associated with diabetic foot infection 2-patient is s/p Left 5th toe amputation and deep culture, which are growing Morganella and enterococus 3-Morganella bacteremia source is likely left diabetic foot infection, repeat blood cultures 02/12/2020 has been negative 4-patient seemed to have shown clinical improvement and will with zosyn , will need PICC for outpatient IV antibioitcs once cleared by nephrology for PICC line placement, questions and concerns were answered Care was discussed with the admitting team Dictation was produced using [employer] dictation software. please excuse any grammatical, word or spelling errors. Time with Patient: Less than 30
--- NOTE | 2023-02-15 11:47 | P.PN ---
Subjective Progress Note Date: 02/15/23 (delayed charting seen at 0830) Patient is a 67-year-old male with diabetes, hypertension, systolic congestive heart failure with ejection fraction 25% that is well-known to our service from multiple recent hospitalizations who presented to the ER at the direction of his home care nurse due to worsening left foot wound. The ER he underwent an extensive evaluation. Workup revealed possible osteomyelitis of the left fifth toe with sepsis. The patient was started on vancomycin and Zosyn. Arrangements are made for admission. Infectious disease was consulted. Vascular surgery was also consulted and recommended amputation of the left fifth toe. Patient's blood cultures returned positive for Morganella. His left foot wound cultures then came back positive for Morganella and Enterobacter. Infectious disease recommended discontinuing vancomycin and continuing with Zosyn. Patient did undergo invitations will left fifth toe with wound VAC placement on 02/12/23. He had left greater than right lower extremity edema and left lower extremity Doppler showed No DVT. He had significant hypoglycemia on the morning of 02/14. His insulin was adjusted. He Had chest pain overnight on 02/14 and was transferred to the cardiac unit and had a heparin gtt started. Patient seen and examined at bedside. Patient reports he had chest pain overnight last night was subsequently transferred to [facility]. He cannot recall the details of his chest pain but he is currently chest pain-free. He denies any shortness breath, nausea, vomiting, or diarrhea. Vital signs reviewed General: nontoxic, no distress, appears at stated age Cardiovascular: S1S2 reg, no murmur, positive posterior tibial pulse bilateral, Lungs: Ronchi b/l bases , no accessory muscle use Abdominal: soft, nontender to palpation, no guarding, no appreciable organomegaly Ext: no gross muscle atrophy, 3+ edema left LE, 2+ R LE Neuro: CN II-XI grossly intact, no focal neuro deficits Psych: Alert, oriented, appropriate affect Assessment/Plan: Sepsis secondary to left foot osteomyelitis status post left fifth toe amputation, diabetic foot infection Morganella bacteremia Peripheral arterial disease - CRP 11.6 on admission - Zosyn 3.375 g IV every 8 hours D # 7 - Case discussed with Dr. Thompson. Patient will require IV Zosyn first 2 weeks and PICC line placement - Vascular note reviewed continue with wound VAC change Wednesday/Wednesday/Wednesday. Continue with aspirin and Plavix. - Wound cultures with Morganella and enterococcus, blood cultures positive for Morganella. Repeat blood cultures negative for 24 hours - Use [place] one tablet every 6 hours as needed for moderate pain, Dilaudid 0.5 mg IV every 6 hours as needed for severe pain - continue with wound vac, - CBC in AM to monitor for ongoing blood loss. NSTEMI - await further cardiology recs - Continue with aspirin 81 mg daily, Plavix 75 mg daily, Lipitor 80 mg daily, Lopressor 12.5 mg daily Acute exacerbation of systolic congestive heart failure with ejection fraction 25% Elevated troponin, nonischemic CAD status post CABG Acute on chronic hypoxic respiratory failure - Cardiology to review 02/13: Decreased dose of Lasix 40 PO BID - Aspirin 81 mg daily, Lipitor 80 mg at night, Plavix 75 mg daily, Lopressor 12.5 mg daily, ARB on hold due to ROSE - Imdur 30 mg daily Insulin-dependent diabetes, with hypoglycemia -A1c 7.4 - Decrease levemir to 35 units at night. SSI - Trulicity on hold Acute kidney injury -Hold losartan for now -Monitor I's and O's -Renal ultrasound: Unable to visualize left kidney, right kidney appears prominent -Nephrology note reviewed: Continue with Lasix, check bladder scan to rule out urinary retention. - On Laisx 40 PO BID - Baseline Cr 1.23 - repeat BMP in AM Imaging: CXR- no acute process Data Review: -Labs reviewed from today include CBC, PTT, BMP which are unremarkable for white blood cell count of 10, hemoglobin 10.5, PTT 45, BUN 54, creatinine 2.09. Troponins are overnight were elevated at 0.126 and 0.134. DVT prophylaxis: Heparin Anticipated discharge date: Pending Clinical Course Anticipated discharge place: Pending Clinical Course This dictation was prepared using [employer] voice recognition software. Though every attempt is made to correct errors during dictation some may still exist. Objective - Vital Signs Vital signs: Vital Signs Temp 97.9 F 02/15/23 08:00 Pulse 88 02/15/23 09:21 Resp 18 02/15/23 08:00 BP 174/96 02/15/23 08:00 Pulse Ox 95 02/15/23 09:13 FiO2 Intake & Output 02/14/23 02/15/23 02/15/23 18:59 06:59 18:59 Intake Total 100 Output Total 1650 1900 1000 Balance -1550 -1900 -1000 Weight 125.5 kg Intake: Intake, IV Titration 100 Amount Piperacillin-Tazobactam 3 100 .375 gm In Sodium Chloride 0.9% 100 ml @ 25 mls/hr IVPB Q8H [facility] Rx#: [id number] Output: Urine 1650 1900 1000 Other: Voiding Method Urinal # Voids 2 # Bowel Movements 1 - Labs CBC & Chem 7: 02/15/23 07:11 02/15/23 07:11 Labs: Abnormal Lab Results - Last 24 Hours (Table) 02/14/23 02/14/23 02/14/23 Range/Units 11:51 16:51 19:28 WBC (3.8-10.6) k/uL RBC (4.30-5.90) m/uL Hgb (13.0-17.5) gm/dL Hct (39.0-53.0) % APTT (22.0-30.0) sec BUN (9-20) mg/dL Creatinine (0.66-1.25) mg/dL Glucose (74-99) mg/dL POC Glucose (mg/dL) 148 H 148 H 208 H (70-110) mg/dL Troponin I (0.000-0.034) ng/mL 02/14/23 02/15/23 02/15/23 Range/Units 21:25 01:14 07:11 WBC 10.9 H (3.8-10.6) k/uL RBC 3.55 L (4.30-5.90) m/uL Hgb 10.5 L (13.0-17.5) gm/dL Hct 32.6 L (39.0-53.0) % APTT (22.0-30.0) sec BUN (9-20) mg/dL Creatinine (0.66-1.25) mg/dL Glucose (74-99) mg/dL POC Glucose (mg/dL) (70-110) mg/dL Troponin I 0.126 H* 0.134 H* (0.000-0.034) ng/mL 02/15/23 02/15/23 Range/Units 07:11 07:11 WBC (3.8-10.6) k/uL RBC (4.30-5.90) m/uL Hgb (13.0-17.5) gm/dL Hct (39.0-53.0) % APTT 45.4 H (22.0-30.0) sec BUN 54 H (9-20) mg/dL Creatinine 2.09 H (0.66-1.25) mg/dL Glucose 107 H (74-99) mg/dL POC Glucose (mg/dL) (70-110) mg/dL Troponin I (0.000-0.034) ng/mL Microbiology - Last 24 Hours (Table) 02/11/23 15:35 Blood Culture - Preliminary Blood 02/09/23 14:34 Blood Culture - Final Blood
[2023-02-15 12:11] LABS: Glucose,Whole Blood 96 mg/dL (70-110)
--- NOTE | 2023-02-15 12:49 | P.PN ---
Subjective Patient is seen for follow-up for acute kidney injury. He is currently maintained on antibiotics for left foot wound. Currently with wound VAC. Maintained on oral Lasix for volume overload and lower extremity edema. Serum creatinine staying at about 2.2-2.0 mg/dL. Previous creatinine 1.2 on 02/09/2023. No urine retention identified. Objective - Vital Signs Vital signs: Vital Signs Temp 97.9 F 02/15/23 08:00 Pulse 88 02/15/23 09:21 Resp 18 02/15/23 08:00 BP 174/96 02/15/23 08:00 Pulse Ox 95 02/15/23 09:13 FiO2 Intake & Output 02/14/23 02/15/23 02/15/23 18:59 06:59 18:59 Intake Total 100 Output Total 1650 1900 1275 Balance -1550 -1900 -1275 Weight 125.5 kg Intake: Intake, IV Titration 100 Amount Piperacillin-Tazobactam 3 100 .375 gm In Sodium Chloride 0.9% 100 ml @ 25 mls/hr IVPB Q8H [facility] Rx#: [id number] Output: Urine 1650 1900 1275 Other: Voiding Method Urinal # Voids 2 # Bowel Movements 1 - Exam Patient is awake, comfortable, no acute distress Examination of the heart S1 and S2 Examination of the lungs bilateral breath sounds are heard Abdomen is soft obese nontender Examination lower extremity shows edema 2+ bilaterally wound VAC noted on left foot - Labs CBC & Chem 7: 02/15/23 07:11 02/15/23 07:11 Labs: Abnormal Lab Results - Last 24 Hours (Table) 02/14/23 02/14/23 02/14/23 Range/Units 16:51 19:28 21:25 WBC (3.8-10.6) k/uL RBC (4.30-5.90) m/uL Hgb (13.0-17.5) gm/dL Hct (39.0-53.0) % APTT (22.0-30.0) sec BUN (9-20) mg/dL Creatinine (0.66-1.25) mg/dL Glucose (74-99) mg/dL POC Glucose (mg/dL) 148 H 208 H (70-110) mg/dL Troponin I 0.126 H* (0.000-0.034) ng/mL 02/15/23 02/15/23 02/15/23 Range/Units 01:14 07:11 07:11 WBC 10.9 H (3.8-10.6) k/uL RBC 3.55 L (4.30-5.90) m/uL Hgb 10.5 L (13.0-17.5) gm/dL Hct 32.6 L (39.0-53.0) % APTT (22.0-30.0) sec BUN 54 H (9-20) mg/dL Creatinine 2.09 H (0.66-1.25) mg/dL Glucose 107 H (74-99) mg/dL POC Glucose (mg/dL) (70-110) mg/dL Troponin I 0.134 H* (0.000-0.034) ng/mL 02/15/23 Range/Units 07:11 WBC (3.8-10.6) k/uL RBC (4.30-5.90) m/uL Hgb (13.0-17.5) gm/dL Hct (39.0-53.0) % APTT 45.4 H (22.0-30.0) sec BUN (9-20) mg/dL Creatinine (0.66-1.25) mg/dL Glucose (74-99) mg/dL POC Glucose (mg/dL) (70-110) mg/dL Troponin I (0.000-0.034) ng/mL Microbiology - Last 24 Hours (Table) 02/11/23 15:35 Blood Culture - Preliminary Blood 02/09/23 14:34 Blood Culture - Final Blood Assessment and Plan Assessment: 1. Acute kidney injury secondary to septic ATN. Creatinine 1.23 on admission and decreased to 2.0 from 2.2 yesterday. No hydronephrosis noted on kidney ultrasound. Left kidney not visualized. No urinary retention. Baseline creatinine near 1 from November 2022. 2. Left foot osteomyelitis status post amputation of left fifth toe this admission. Also noted to be bacteremic. On IV antibiotics. 3. Diabetes mellitus. 4. Volume overload. 5. Coronary artery disease status post CABG. Plan: Continue oral Lasix Continue with antibiotics Avoid nephrotoxic agents Repeat labs in a.m.
--- NOTE | 2023-02-15 14:19 | P.PN ---
Subjective Progress Note Date: 02/15/23 History of present illness: This is a Pleasant 67-year-old gentleman who follows with Dr. Mai in the off ice he has a known history of hypertension, hyperlipidemia, diabetes, CAD, cardiomyopathy with an ejection fraction of 25-30% in December of this year, and peripheral arterial disease status post PTCA on 01/20/2023 of the left, prior amputation of the distal right foot done at [facility]. He was admitted to the hospital recently with congestive heart failure. At that time he was diuresed and discharged home on some tolerated and when directed medical therapy. During that admission he was noted to have a wound on his left fifth toe that appeared to be infected. He presented this admission due to the infected foot wound. There was evidence of osteomyelitis. He underwent left fifth toe amputation with debridement and placement of wound VAC yesterday by Dr. Short. We were asked to see the patient in consultation due to recent left SFA intervention. From a cardiac standpoint he continues to feel short of breath with some orthopnea but this appears to be relatively stable. He's had no chest discomfort. He has worsening edema in the left lower extremity, stable mild edema in the right lower extremity. He's had no palpitations, dizziness or syncope. Vital signs have been stable. Labs show worsening renal function with a BUN of 55 and creatinine 2.22. 02/14/2023 He was seen and examined resting comfortably in a chair. BUN and creatinine look a bit worse today despite decreasing diuretics and his feeling more congested with a cough and more wheezing as well as worsening edema. Vital signs and stable. 02/15 Patient is seen today in follow-up. Patient was transferred from the fourth floor due to chest pain and was started on a heparin drip. This morning, patient does not remember having any chest pain. His initial troponin on 02/09. Blood pressure 148/80, heart rate in the 80s, pulse ox 95% on room air. Repeat blood work reveals WBC 10.9, hemoglobin 10.5. Electrolytes normal. BUN 54 creatinine 2.09. Patient is scheduled for PICC line insertion today. Physical examination: Gen: This is a 67-year-old male appears to be in no acute distress VS: reviewed HEENT: Head is atraumatic, normocephalic. Pupils equal, round. Sclerae is anicteric. LUNGS: Clear to auscultation. No wheezes or rhonchi. No intercostal retractions. HEART: Regular rate and rhythm. No murmur. ABDOMEN: Soft No tenderness. EXTREMITIES: Transmetatarsal amputation right foot, new amputation of left fifth toe with wound VAC, positive lower extremity edema. NEUROLOGICAL: Patient is awake, alert and oriented x3. Assessment: Left foot wound with osteomyelitis status post imitation of the left fifth toe Coronary artery disease with known chronic total occlusion of the distal RCA and intermediate disease involving the OM1 PAD with recent [employer] involving the left SSA Hypertension Hyperlipidemia COPD Chronic hypoxic respiratory failure on home O2 Diabetes Plan: Discontinue heparin drip Start patient on subcu heparin Continue patient on Imdur, aspirin, Plavix, statin Monitor renal function and consider resuming ARB. Nurse practitioner note has been reviewed, I agree with documented findings and plan of care. Patient was seen and examined. Objective - Vital Signs Vital signs: Vital Signs Temp 97.9 F 02/15/23 08:00 Pulse 88 02/15/23 09:21 Resp 18 02/15/23 08:00 BP 174/96 02/15/23 08:00 Pulse Ox 95 02/15/23 09:13 FiO2 Intake & Output 02/14/23 02/15/23 02/15/23 18:59 06:59 18:59 Intake Total 100 Output Total 1650 1900 1000 Balance -1550 -1900 -1000 Weight 125.5 kg Intake: Intake, IV Titration 100 Amount Piperacillin-Tazobactam 3 100 .375 gm In Sodium Chloride 0.9% 100 ml @ 25 mls/hr IVPB Q8H [facility] Rx#: [id number] Output: Urine 1650 1900 1000 Other: Voiding Method Urinal # Voids 2 # Bowel Movements 1 - Labs CBC & Chem 7: 02/15/23 07:11 02/15/23 07:11 Labs: Abnormal Lab Results - Last 24 Hours (Table) 02/14/23 02/14/23 02/14/23 Range/Units 11:51 16:51 19:28 WBC (3.8-10.6) k/uL RBC (4.30-5.90) m/uL Hgb (13.0-17.5) gm/dL Hct (39.0-53.0) % APTT (22.0-30.0) sec BUN (9-20) mg/dL Creatinine (0.66-1.25) mg/dL Glucose (74-99) mg/dL POC Glucose (mg/dL) 148 H 148 H 208 H (70-110) mg/dL Troponin I (0.000-0.034) ng/mL 02/14/23 02/15/23 02/15/23 Range/Units 21:25 01:14 07:11 WBC 10.9 H (3.8-10.6) k/uL RBC 3.55 L (4.30-5.90) m/uL Hgb 10.5 L (13.0-17.5) gm/dL Hct 32.6 L (39.0-53.0) % APTT (22.0-30.0) sec BUN (9-20) mg/dL Creatinine (0.66-1.25) mg/dL Glucose (74-99) mg/dL POC Glucose (mg/dL) (70-110) mg/dL Troponin I 0.126 H* 0.134 H* (0.000-0.034) ng/mL 02/15/23 02/15/23 Range/Units 07:11 07:11 WBC (3.8-10.6) k/uL RBC (4.30-5.90) m/uL Hgb (13.0-17.5) gm/dL Hct (39.0-53.0) % APTT 45.4 H (22.0-30.0) sec BUN 54 H (9-20) mg/dL Creatinine 2.09 H (0.66-1.25) mg/dL Glucose 107 H (74-99) mg/dL POC Glucose (mg/dL) (70-110) mg/dL Troponin I (0.000-0.034) ng/mL Microbiology - Last 24 Hours (Table) 02/11/23 15:35 Blood Culture - Preliminary Blood 02/09/23 14:34 Blood Culture - Final Blood
[2023-02-15 16:55] LABS: Glucose,Whole Blood 203 mg/dL (70-110)
[2023-02-15 20:11] LABS: Glucose,Whole Blood 252 mg/dL (70-110)
[2023-02-15] MEDS: TOPIRAMATE 25 MG TAB PO SCH (20:16)
[2023-02-15] MEDS: HEPARIN SODIUM,PORCINE 5,000 UNIT/ML 1 ML VIAL SQ SCH (20:16)
[2023-02-15] MEDS: ATORVASTATIN 80 MG TAB PO SCH (20:16)
[2023-02-15] MEDS ORDERED: INSULIN DETEMIR (LEVEMIR) 100 UNIT/ML SYR SQ SCH (21:00)
[2023-02-16] MEDS: PIPERACILLIN-TAZOBACTAM 3.375 GM in SODIUM CHLORIDE 0.9% 100 ML IVPB SCH ×4 (00:04→23:40)
[2023-02-16] MEDS: HYDROcodone/APAP 5-325MG 1 EACH TAB PO PRN ×2 (04:47→20:58)
[2023-02-16 06:10] LABS: Glucose,Whole Blood 180 mg/dL (70-110)
[2023-02-16] MEDS: INSULIN ASPART (NovoLOG) 100 UNIT/ML VIAL SQ SCH ×4 (06:43→22:03)
[2023-02-16] MEDS: FERROUS SULFATE 325 MG TAB PO SCH (08:00)
[2023-02-16] MEDS: FAMOTIDINE 20 MG TAB PO SCH (08:00)
[2023-02-16] MEDS: SUCRALFATE 1 GM TAB PO SCH ×4 (08:01→20:59)
[2023-02-16] MEDS: LACTULOSE 20 GM/30 ML CUP PO SCH (08:01)
[2023-02-16] MEDS: FUROSEMIDE 40 MG TAB PO SCH ×2 (08:03→17:49)
[2023-02-16] MEDS: ASPIRIN 81 MG PO SCH (08:03)
[2023-02-16] MEDS: CLOPIDOGREL 75 MG TAB PO SCH (08:03)
[2023-02-16] MEDS: METOPROLOL TARTRATE 12.5 MG TAB PO SCH ×2 (08:04→20:58)
[2023-02-16] MEDS: ISOSORBIDE MONONITRATE ER 30 MG TAB.ER.24H PO SCH (08:04)
[2023-02-16] MEDS: HEPARIN SODIUM,PORCINE 5,000 UNIT/ML 1 ML VIAL SQ SCH ×2 (08:11→20:59)
[2023-02-16] MEDS: IPRATROPIUM-ALBUTEROL 3 ML NEB INHALATION PRN ×2 (08:30→12:01)
[2023-02-16 09:50] LABS: HCT 33.2 % (39.0-53.0); HGB 10.5 gm/dL (13.0-17.5); Hypochromasia Slight; MCH 29.8 pg (25.0-35.0); MCHC 31.7 g/dL (31.0-37.0); Mean Platelet Volume 8.6; Platelet Count 300 k/uL (150-450); RBC 3.53 m/uL (4.30-5.90); RDW 14.1 % (11.5-15.5); WBC 12.4 k/uL (3.8-10.6)
--- NOTE | 2023-02-16 10:05 | P.CONS ---
History of Present Illness - Reason for Consult Consult date: 02/16/23 wound care - History of Present Illness This is a 67-year-old patient known to the wound care center with a nonhealing ulceration to the left lateral foot. Patient is postop day 3 for a left fifth digit amputation. Patient currently has negative pressure wound VAC in place. Plan for him to go home with a PICC line and antibiotics. Patient will return to the wound care center to continue care. Review Of Systems: Constitutional: No fever, no chills, no night sweats. No weight change. No weakness, fatigue or lethargy. No daytime sleepiness. Integumentary:reports wounds, no lesions. No rash or pruritus. No unusual bruising. No change in hair or nails. Physical exam: General Appearance: Alert, cooperative, no distress, appears stated age. Skin: See HPI all other Skin color, texture, tugor normal, no rashes or lesions. Neurologic: Alert oriented x3 Assessment: 1. 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 Diabetic foot ulcer 3. Venous insufficiency Plan: 1. Continue with negative pressure wound VAC at 125 mmHg with black foam continuous negative pressure. Change Wednesday. Patient returned to the wound care center on February 24 at 10 AM Thank you for the consultation any questions please contact the wound care center DNP note has been reviewed and discussed with Dr. Wade and the impression and plan of care has been directed as dictated. Past Medical History Past Medical History: Cancer, Heart Failure, Dementia, Diabetes Mellitus, GERD/Reflux, Hearing Disorder / Deafness, Hyperlipidemia, Hypertension, Myocardial Infarction ([place]), Osteoarthritis ([place]), Pneumonia Additional Past Medical History / Comment(s): Brain CA (30 years ago) in remission. 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 Mother Additional Family Medical History / Comment(s): Mother had a bad heart. Medications and Allergies Home Medications Medication Instructions Recorded Confirmed Type Aspirin EC [Ecotrin Low Dose] 81 mg PO DAILY@0800 01/12/19 02/09/23 History Atorvastatin [Lipitor] 80 mg PO HS@199901/12/19 02/09/23 History Clopidogrel Bisulfate [Plavix] 75 mg PO DAILY@0800 07/28/21 02/09/23 History Ferrous Sulfate [Iron (65 MG 325 mg PO DAILY@0800 07/28/21 02/09/23 History Elemental)] Ipratropium-Albuterol Nebulize 3 ml INHALATION RT-QID PRN 07/28/21 02/09/23 History [Duoneb 0.5 mg-3 mg/3 ml Soln] Famotidine [Pepcid] 20 mg PO BID@0800,199903/18/22 02/09/23 History Dulaglutide [Trulicity] 1.5 mg SQ TH 04/01/22 02/09/23 History Insulin Aspart (Niacinamide) 25 units SQ BID 04/01/22 02/09/23 History [Fiasp 100 Unit/ml Flextouch Pen] Insulin Glargine,Hum.rec.anlog 75 units SQ HS 04/01/22 02/09/23 History [Basaglar Kwikpen U-100] Topiramate [Topamax] 25 mg PO HS@199904/01/22 02/09/23 History Acetaminophen [Tylenol] 650 mg PO QID PRN 04/22/22 02/09/23 History Albuterol Sulfate [Albuterol 1 - 2 puff INHALATION RT-Q4H PRN 04/22/22 02/09/23 History Sulfate Hfa] Dicyclomine 10mg/5ml Oral Solution 10 mg PO TID@0800,1700,199907/06/22 02/09/23 History Isosorbide Mononitrate ER [Imdur] 30 mg PO DAILY@0800 07/06/22 02/09/23 History Lactulose [Cephulac] 20 gm PO DAILY@0800 10/15/22 02/09/23 History traMADol HCL 50 mg PO Q6H 10/15/22 02/09/23 History Nitroglycerin Sl Tabs [Nitrostat] 0.4 mg SL Q5M PRN 10/20/22 02/09/23 History Metoprolol Tartrate [Lopressor] 12.5 mg PO BID@0800,199912/08/22 02/09/23 History Sucralfate [Sucralfate Oral Susp] 1 gm PO ACHS@08,12,17,12/08/22 02/09/23 History Collagenase [Santyl Ointment] 1 applic TOPICAL DAILY 02/01/23 02/09/23 History Furosemide [Lasix] 40 mg PO TID #0 02/03/23 02/09/23 Rx Losartan [Cozaar] 12.5 mg PO DAILY #0 tab 02/03/23 02/09/23 Rx Allergies Allergy/AdvReac Type Severity Reaction Status Date / Time furosemide [From Lasix] AdvReac Unknown Verified 02/09/23 13:59 sacubitril [From Entresto] AdvReac made him Verified 02/09/23 13:59 hypotensive valsartan [From Entresto] AdvReac made him Verified 02/09/23 13:59 hypotensive Physical Exam Vitals: Vital Signs Temp Pulse Pulse Resp BP Pulse Ox 02/16/23 08:43 90 25 H 02/16/23 08:41 96 02/16/23 08:31 94 99 02/16/23 07:29 98.4 F 90 25 H 148/79 97 02/16/23 04:00 113 H 18 162/79 96 02/16/23 00:00 99 16 137/55 100 02/15/23 21:29 88 02/15/23 21:16 84 02/15/23 20:00 98.1 F 97 18 137/71 100 02/15/23 17:28 92 02/15/23 17:15 96 02/15/23 16:00 98.4 F 97 18 137/93 100 02/15/23 13:53 87 18 02/15/23 13:06 86 02/15/23 12:54 84 02/15/23 12:00 18 148/80 95 Intake and Output 02/15/23 02/16/23 02/16/23 22:59 06:59 14:59 Intake Total 240 Output Total 250 550 Balance -250 -310 Intake: Oral 240 Output: Urine 250 550 Other: Voiding Method Urinal Urinal # Voids 2 Results CBC & Chem 7: 02/16/23 08:34 02/15/23 07:11 Labs: Abnormal Lab Results - Last 24 Hours (Table) 02/15/23 02/15/23 02/16/23 Range/Units 16:43 20:10 06:09 WBC (3.8-10.6) k/uL RBC (4.30-5.90) m/uL Hgb (13.0-17.5) gm/dL Hct (39.0-53.0) % POC Glucose (mg/dL) 203 H 252 H 180 H (70-110) mg/dL 02/16/23 Range/Units 08:34 WBC 12.4 H (3.8-10.6) k/uL RBC 3.53 L (4.30-5.90) m/uL Hgb 10.5 L (13.0-17.5) gm/dL Hct 33.2 L (39.0-53.0) % POC Glucose (mg/dL) (70-110) mg/dL Microbiology - Last 24 Hours (Table) 02/11/23 15:35 Blood Culture - Preliminary Blood Assessment and Plan (1) Non-pressure chronic ulcer of other part of left foot with necrosis of bone Current Visit: Yes Status: Acute Code(s): L97.524 - NON-PRS CHRONIC ULCER OTH PRT LEFT FOOT W NECROSIS OF BONE SNOMED Code(s): 42861505885556807 (2) Osteomyelitis Current Visit: Yes Status: Acute Code(s): M86.9 - OSTEOMYELITIS, UNSPECIFIED SNOMED Code(s): 65384032 (3) Type 2 diabetes mellitus with foot ulcer Current Visit: No Status: Acute Code(s): E11.621 - TYPE 2 DIABETES MELLITUS WITH FOOT ULCER; L97.509 - NON-PRESSURE CHRONIC ULCER OTH PRT UNSP FOOT W UNSP SEVERITY SNOMED Code(s): 565135235 (4) Venous insufficiency (chronic) (peripheral) Current Visit: No Status: Acute Code(s): I87.2 - VENOUS INSUFFICIENCY (CHRONIC) (PERIPHERAL) SNOMED Code(s): 81420375
[2023-02-16 10:07] LABS: African American GFR (CKD) 46 (>60 ml/min/1.73 sqM); Anion Gap 12 mmol/L; Blood Urea Nitrogen 39 mg/dL (9-20); Calcium 8.8 mg/dL (8.4-10.2); Carbon Dioxide 26 mmol/L (22-30); Chloride 103 mmol/L (98-107); Glucose 192 mg/dL (74-99); Magnesium 1.8 mg/dL (1.6-2.3); Non-African American GFR(CKD) 40 (>60 ml/min/1.73 sqM); Potassium 3.9 mmol/L (3.5-5.1); Sodium 141 mmol/L (137-145)
[2023-02-16 11:22] LABS: Glucose,Whole Blood 215 mg/dL (70-110)
--- NOTE | 2023-02-16 11:30 | P.PN ---
Subjective Progress Note Date: 02/16/23 Principal diagnosis: Osteomyelitis Patient seen and examined today as a follow-up. No acute changes through the night. Wound care was consulted. Patient is known to them. They plan for outpatient follow-up in one week. Continue wound VAC on discharge. Objective - Vital Signs Vital signs: Vital Signs Temp 98.4 F 02/16/23 07:29 Pulse 90 02/16/23 08:43 Resp 25 H 02/16/23 08:43 BP 148/79 02/16/23 07:29 Pulse Ox 99 02/16/23 08:31 FiO2 Intake & Output 02/15/23 02/16/23 02/16/23 18:59 06:59 18:59 Intake Total 118 240 Output Total 1495 250 550 Balance -2077 -250 -310 Intake: Oral 118 240 Output: Urine 1495 250 550 Other: Voiding Method Urinal Urinal # Voids 2 # Bowel Movements 1 - Exam General appearance: The patient is alert, oriented, appears in no acute distress. HET: Head is normocephalic and atraumatic. Pupils are equal and reactive. Neck: Supple. Abdomen: Soft, nondistended. Extremities: Bilateral lower extremity swelling. Left foot with wound VAC in place with good suction. Neurological: Alert and oriented. No focal deficits noted. - Labs CBC & Chem 7: 02/16/23 08:34 02/16/23 08:34 Labs: Abnormal Lab Results - Last 24 Hours (Table) 02/15/23 02/15/23 02/16/23 Range/Units 16:43 20:10 06:09 WBC (3.8-10.6) k/uL RBC (4.30-5.90) m/uL Hgb (13.0-17.5) gm/dL Hct (39.0-53.0) % BUN (9-20) mg/dL Creatinine (0.66-1.25) mg/dL Glucose (74-99) mg/dL POC Glucose (mg/dL) 203 H 252 H 180 H (70-110) mg/dL 02/16/23 02/16/23 Range/Units 08:34 08:34 WBC 12.4 H (3.8-10.6) k/uL RBC 3.53 L (4.30-5.90) m/uL Hgb 10.5 L (13.0-17.5) gm/dL Hct 33.2 L (39.0-53.0) % BUN 39 H (9-20) mg/dL Creatinine 1.77 H (0.66-1.25) mg/dL Glucose 192 H (74-99) mg/dL POC Glucose (mg/dL) (70-110) mg/dL Assessment and Plan Assessment: 1. Osteomyelitis of left fifth toe that is posted toe amputation with wound VAC application 2. History of peripheral arterial disease status post recent angioplasty of left SFA and stenting of right SFA 3. History coronary artery disease 4. Diabetes mellitus 5. Hypertension 6. Hyperlipidemia Plan: 1. Continue antibiotics per recommendations from infectious disease 2. Keep wound VAC in place, change Wednesday 3. Continue aspirin and Plavix 4. Cardiology was consulted for history of peripheral arterial disease with recent revascularization 5. Wound care on consult, patient will need to follow for outpatient wound care and management of wound VAC Thank you for this consultation, we will sign off The impression and plan of care has been dictated as directed. Dr. Lane I performed a history and examination of this patient, discussed the same with the dictator. I agree with the dictator's note ,documented as a scribe. Any additional findings or plans will be noted.
--- NOTE | 2023-02-16 12:25 | P.PN ---
Subjective Patient is seen for follow-up for acute kidney injury. He is currently maintained on antibiotics for left foot wound. Currently with wound VAC. Maintained on oral Lasix for volume overload and lower extremity edema. Serum creatinine decreased to 1.7 today. Previous creatinine 1.2 on 02/09/2023. No urine retention identified. Objective - Vital Signs Vital signs: Vital Signs Temp 97.9 F 02/16/23 11:30 Pulse 92 02/16/23 12:11 Resp 29 H 02/16/23 11:45 BP 136/69 02/16/23 11:30 Pulse Ox 100 02/16/23 11:30 FiO2 Intake & Output 02/15/23 02/16/23 02/16/23 18:59 06:59 18:59 Intake Total 118 240 Output Total 1495 250 550 Balance -1377 -250 -310 Intake: Oral 118 240 Output: Urine 1495 250 550 Other: Voiding Method Urinal Urinal # Voids 2 # Bowel Movements 1 - Exam Patient is awake, comfortable, no acute distress Examination of the heart S1 and S2 Examination of the lungs bilateral breath sounds are heard Abdomen is soft obese nontender Examination lower extremity shows edema 2+ bilaterally wound VAC noted on left foot - Labs CBC & Chem 7: 02/16/23 08:34 02/16/23 08:34 Labs: Abnormal Lab Results - Last 24 Hours (Table) 02/15/23 02/15/23 02/16/23 Range/Units 16:43 20:10 06:09 WBC (3.8-10.6) k/uL RBC (4.30-5.90) m/uL Hgb (13.0-17.5) gm/dL Hct (39.0-53.0) % BUN (9-20) mg/dL Creatinine (0.66-1.25) mg/dL Glucose (74-99) mg/dL POC Glucose (mg/dL) 203 H 252 H 180 H (70-110) mg/dL 02/16/23 02/16/23 02/16/23 Range/Units 08:34 08:34 11:19 WBC 12.4 H (3.8-10.6) k/uL RBC 3.53 L (4.30-5.90) m/uL Hgb 10.5 L (13.0-17.5) gm/dL Hct 33.2 L (39.0-53.0) % BUN 39 H (9-20) mg/dL Creatinine 1.77 H (0.66-1.25) mg/dL Glucose 192 H (74-99) mg/dL POC Glucose (mg/dL) 215 H (70-110) mg/dL Assessment and Plan Assessment: 1. Acute kidney injury secondary to septic ATN. Creatinine 1.23 on admission and decreased to 2.0 from 2.2 yesterday. No hydronephrosis noted on kidney ultrasound. Left kidney not visualized. No urinary retention. Baseline creatinine near 1 from November 2022. 2. Left foot osteomyelitis status post amputation of left fifth toe this admission. Also noted to be bacteremic. On IV antibiotics. 3. Diabetes mellitus. 4. Volume overload. 5. Coronary artery disease status post CABG. Plan: Continue oral Lasix Continue with antibiotics Avoid nephrotoxic agents
[2023-02-16 14:00] VITALS: BMI 35.5
--- NOTE | 2023-02-16 14:31 | P.PN ---
Subjective Progress Note Date: 02/16/23 Principal diagnosis: Left diabetic foot infection and bacteremia Patient is a 67-year-old male with a past medical history significant for diabetes mellitus hypertension hyperlipidemia MD history of brain cancer in remission and heart failure did have a history of diabetic foot infection and previous right foot transmetatarsal amputation patient is presenting to [facility] ER concerning for an ulceration to the left foot lateral aspect, patient noticed to have a extensive infection to the left foot and also evidence of gram-negative bacteremia, the patient is status post left fifth toe amputation completed on 02/12/2023 On today's evaluation that is 02/16/2023, the patient continues to be afebrile, the patient is breathing comfortably on room air and no need for supplemental oxygen, the patient denies any chest pain or cough , patient denies nausea/v omiting or diarrhea , no abdominal pain, the patient denies pain to the left foot wound area is wound VAC was changed yesterday and scheduled for changed tomorrow Patient white count slightly up to 12.4, creatinine is down to 1.77, blood culture with morganella , local cultures with morganella and enterococus Objective - Vital Signs Vital signs: Vital Signs Temp 97.9 F 02/16/23 11:30 Pulse 88 02/16/23 11:45 Resp 29 H 02/16/23 11:45 BP 136/69 02/16/23 11:30 Pulse Ox 100 02/16/23 11:30 FiO2 Intake & Output 02/15/23 02/16/23 02/16/23 18:59 06:59 18:59 Intake Total 118 240 Output Total 1495 250 550 Balance -1377 -250 -310 Intake: Oral 118 240 Output: Urine 1495 250 550 Other: Voiding Method Urinal Urinal # Voids 2 # Bowel Movements 1 - Exam GENERAL DESCRIPTION: An elderly male lying in bed in no distress RESPIRATORY SYSTEM: Unlabored breathing , clear to auscultation anteriorly HEART: S1 S2 regular rate and rhythm , ABDOMEN: Soft , no tenderness EXTREMITIES: Left foot 5th toe amputation site wound is covered with wound vac - Labs CBC & Chem 7: 02/16/23 08:34 02/16/23 08:34 Labs: Abnormal Lab Results - Last 24 Hours (Table) 02/15/23 02/15/23 02/16/23 Range/Units 16:43 20:10 06:09 WBC (3.8-10.6) k/uL RBC (4.30-5.90) m/uL Hgb (13.0-17.5) gm/dL Hct (39.0-53.0) % BUN (9-20) mg/dL Creatinine (0.66-1.25) mg/dL Glucose (74-99) mg/dL POC Glucose (mg/dL) 203 H 252 H 180 H (70-110) mg/dL 02/16/23 02/16/23 02/16/23 Range/Units 08:34 08:34 11:19 WBC 12.4 H (3.8-10.6) k/uL RBC 3.53 L (4.30-5.90) m/uL Hgb 10.5 L (13.0-17.5) gm/dL Hct 33.2 L (39.0-53.0) % BUN 39 H (9-20) mg/dL Creatinine 1.77 H (0.66-1.25) mg/dL Glucose 192 H (74-99) mg/dL POC Glucose (mg/dL) 215 H (70-110) mg/dL Assessment and Plan (1) Diabetic infection of left foot Current Visit: Yes Status: Acute Code(s): E11.628 - TYPE 2 DIABETES MELLITUS WITH OTHER SKIN COMPLICATIONS; L08.9 - LOCAL INFECTION OF THE SKIN AND TUCKER BCUTANEOUS TISSUE, UNSP SNOMED Code(s): 16682068 (2) Gram-negative bacteremia Current Visit: Yes Status: Acute Code(s): R78.81 - BACTEREMIA SNOMED Code(s): 291894095326 (3) Osteomyelitis Current Visit: Yes Status: Acute Code(s): M86.9 - OSTEOMYELITIS, UNSPECIFIED SNOMED Code(s): 49790566 (4) Sepsis Current Visit: Yes Status: Acute Code(s): A41.9 - SEPSIS, UNSPECIFIED ORGANISM SNOMED Code(s): 81593189 Plan: 1patient presented hospital with sepsis in this patient with fever tachycardia elevated white count source is left diabetic foot infection and concern for underlying osteomyelitis we will need to cover for the polymicrobial john usually associated with diabetic foot infection 2-patient is s/p Left 5th toe amputation and deep culture, which are growing Morganella and enterococus 3-Morganella bacteremia source is likely left diabetic foot infection, repeat blood cultures 02/12/2020 has been negative 4-patient slowly clinically improving and will continue with zosyn , will need outpatient IV antibiotic therapy and will reevaluate the wound tomorrow at the time of wound VAC change Dictation was produced using [employer] dictation software. please excuse any grammatical, word or spelling errors. Time with Patient: Less than 30
--- NOTE | 2023-02-16 14:36 | P.PN ---
Subjective Progress Note Date: 02/16/23 (delayed charting seen at 0930) Patient is a 67-year-old male with diabetes, hypertension, systolic congestive heart failure with ejection fraction 25% that is well-known to our service from multiple recent hospitalizations who presented to the ER at the direction of his home care nurse due to worsening left foot wound. The ER he underwent an extensive evaluation. Workup revealed possible osteomyelitis of the left fifth toe with sepsis. The patient was started on vancomycin and Zosyn. Arrangements are made for admission. Infectious disease was consulted. Vascular surgery was also consulted and recommended amputation of the left fifth toe. Patient's blood cultures returned positive for Morganella. His left foot wound cultures then came back positive for Morganella and Enterobacter. Infectious disease recommended discontinuing vancomycin and continuing with Zosyn. Patient did undergo invitations will left fifth toe with wound VAC placement on 02/12/23. He had left greater than right lower extremity edema and left lower extremity Doppler showed No DVT. He had significant hypoglycemia on the morning of 02/14. His insulin was adjusted. He Had chest pain overnight on 02/14 and was transferred to the cardiac unit and had a heparin gtt started. Patient seen and examined at bedside. Patient reports he had chest pain overnight last night was subsequently transferred to [facility]. He cannot recall the details of his chest pain but he is currently chest pain-free. He denies any shortness breath, nausea, vomiting, or diarrhea. Vital signs reviewed General: nontoxic, no distress, appears at stated age Cardiovascular: S1S2 reg, no murmur, positive posterior tibial pulse bilateral, Lungs: Ronchi b/l bases , no accessory muscle use Abdominal: soft, nontender to palpation, no guarding, no appreciable organomegaly Ext: no gross muscle atrophy, 3+ edema left LE, 2+ R LE Neuro: CN II-XI grossly intact, no focal neuro deficits Psych: Alert, oriented, appropriate affect Assessment/Plan: Sepsis secondary to left foot osteomyelitis status post left fifth toe amputation, diabetic foot infection Morganella bacteremia Peripheral arterial disease - CRP 11.6 on admission - Zosyn 3.375 g IV every 8 hours D # 8 - Wound cultures with Morganella and enterococcus, blood cultures positive for Morganella. Repeat blood cultures negative to date - Use [place] one tablet every 6 hours as needed for moderate pain, Dilaudid 0.5 mg IV every 6 hours as needed for severe pain -Vascular surgery note reviewed: Continue with the wound VAC. We will sign off. - Wound care recommendation review: Continue with the wound VAC change Wednesday/Wednesday/Wednesday. Follow-up with Dr. Begum on 02/24 at 10 AM - CBC in AM to monitor for ongoing blood loss. NSTEMI, type II -Cardiology recommendations reviewed. Patient without chest pain. Troponin elevation likely related to systemic illness - Continue with aspirin 81 mg daily, Plavix 75 mg daily, Lipitor 80 mg daily, Lopressor 12.5 mg daily Acute exacerbation of systolic congestive heart failure with ejection fraction 25% Elevated troponin, nonischemic CAD status post CABG Acute on chronic hypoxic respiratory failure - Cardiology to review 02/13: Decreased dose of Lasix 40 PO BID - Aspirin 81 mg daily, Lipitor 80 mg at night, Plavix 75 mg daily, Lopressor 12.5 mg daily, ARB on hold due to ROSE - Imdur 30 mg daily Insulin-dependent diabetes, with hypoglycemia -A1c 7.4 - Decrease levemir to 40 units at night. SSI - Trulicity on hold Acute kidney injury, improving -Hold losartan for now -Monitor I's and O's -Renal ultrasound: Unable to visualize left kidney, right kidney appears prominent -Nephrology note reviewed: Continue with oral Lasix - Laisx 40 PO BID - Baseline Cr 1.23 - repeat BMP in AM Imaging: None new Data Review: Labs reviewed from today include CBC and basic metabolic profile which were remarkable for white blood cell count 12.4, hemoglobin 10.5, BUN 39, creatinine 1.77 DVT prophylaxis: Heparin Anticipated discharge date: in 24-[address]: [facility] This dictation was prepared using [employer] voice recognition software. Though every attempt is made to correct errors during dictation some may still exist. Objective - Vital Signs Vital signs: Vital Signs Temp 97.9 F 02/16/23 11:30 Pulse 92 02/16/23 12:11 Resp 29 H 02/16/23 11:45 BP 136/69 02/16/23 11:30 Pulse Ox 100 02/16/23 11:30 FiO2 Intake & Output 02/15/23 02/16/23 02/16/23 18:59 06:59 18:59 Intake Total 118 465 Output Total 1495 250 550 Balance -1377 -250 -85 Weight 125.5 kg Intake: Oral 118 465 Output: Urine 1495 250 550 Other: Voiding Method Urinal Urinal # Voids 2 # Bowel Movements 1 - Labs CBC & Chem 7: 02/16/23 08:34 02/16/23 08:34 Labs: Abnormal Lab Results - Last 24 Hours (Table) 02/15/23 02/15/23 02/16/23 Range/Units 16:43 20:10 06:09 WBC (3.8-10.6) k/uL RBC (4.30-5.90) m/uL Hgb (13.0-17.5) gm/dL Hct (39.0-53.0) % BUN (9-20) mg/dL Creatinine (0.66-1.25) mg/dL Glucose (74-99) mg/dL POC Glucose (mg/dL) 203 H 252 H 180 H (70-110) mg/dL 02/16/23 02/16/23 02/16/23 Range/Units 08:34 08:34 11:19 WBC 12.4 H (3.8-10.6) k/uL RBC 3.53 L (4.30-5.90) m/uL Hgb 10.5 L (13.0-17.5) gm/dL Hct 33.2 L (39.0-53.0) % BUN 39 H (9-20) mg/dL Creatinine 1.77 H (0.66-1.25) mg/dL Glucose 192 H (74-99) mg/dL POC Glucose (mg/dL) 215 H (70-110) mg/dL
--- NOTE | 2023-02-16 15:24 | P.PN ---
Subjective Progress Note Date: 02/16/23 History of present illness: This is a Pleasant 67-year-old gentleman who follows with Dr. Mai in the off ice he has a known history of hypertension, hyperlipidemia, diabetes, CAD, cardiomyopathy with an ejection fraction of 25-30% in December of this year, and peripheral arterial disease status post PTCA on 01/20/2023 of the left, prior amputation of the distal right foot done at [facility]. He was admitted to the hospital recently with congestive heart failure. At that time he was diuresed and discharged home on some tolerated and when directed medical therapy. During that admission he was noted to have a wound on his left fifth toe that appeared to be infected. He presented this admission due to the infected foot wound. There was evidence of osteomyelitis. He underwent left fifth toe amputation with debridement and placement of wound VAC yesterday by Dr. Short. We were asked to see the patient in consultation due to recent left SFA intervention. From a cardiac standpoint he continues to feel short of breath with some orthopnea but this appears to be relatively stable. He's had no chest discomfort. He has worsening edema in the left lower extremity, stable mild edema in the right lower extremity. He's had no palpitations, dizziness or syncope. Vital signs have been stable. Labs show worsening renal function with a BUN of 55 and creatinine 2.22. 02/14/2023 He was seen and examined resting comfortably in a chair. BUN and creatinine look a bit worse today despite decreasing diuretics and his feeling more congested with a cough and more wheezing as well as worsening edema. Vital signs and stable. 02/15 Patient is seen today in follow-up. Patient was transferred from the fourth floor due to chest pain and was started on a heparin drip. This morning, patient does not remember having any chest pain. His initial troponin on 02/09. Blood pressure 148/80, heart rate in the 80s, pulse ox 95% on room air. Repeat blood work reveals WBC 10.9, hemoglobin 10.5. Electrolytes normal. BUN 54 creatinine 2.09. Patient is scheduled for PICC line insertion today. 02/16 Heparin drip was discontinued yesterday and transition to subcu. Heart rate is in the 80s and 90s, blood pressure 136/69. Patient is currently in a sinus rhythm. I'll repeat blood work reveals BUN of 39 creatinine 1.77. We will plan to continue to monitor renal function before starting ARB. Physical examination: Gen: This is a 67-year-old male appears to be in no acute distress VS: reviewed HEENT: Head is atraumatic, normocephalic. Pupils equal, round. Sclerae is anicteric. LUNGS: Clear to auscultation. No wheezes or rhonchi. No intercostal retractions. HEART: Regular rate and rhythm. No murmur. ABDOMEN: Soft No tenderness. EXTREMITIES: Transmetatarsal amputation right foot, new amputation of left fifth toe with wound VAC, positive lower extremity edema. NEUROLOGICAL: Patient is awake, alert and oriented x3. Assessment: Left foot wound with osteomyelitis status post imitation of the left fifth toe Coronary artery disease with known chronic total occlusion of the distal RCA and intermediate disease involving the OM1 PAD with recent EDUCATION DEAN involving the left SSA Hypertension Hyperlipidemia COPD Chronic hypoxic respiratory failure on home O2 Diabetes Plan: Continue patient on Imdur, aspirin, Plavix, statin Monitor renal function and consider resuming ARB. Nurse practitioner note has been reviewed, I agree with documented findings and plan of care. Patient was seen and examined. Objective - Vital Signs Vital signs: Vital Signs Temp 97.9 F 02/16/23 11:30 Pulse 92 02/16/23 12:11 Resp 29 H 02/16/23 11:45 BP 136/69 02/16/23 11:30 Pulse Ox 100 02/16/23 11:30 FiO2 Intake & Output 02/15/23 02/16/23 02/16/23 18:59 06:59 18:59 Intake Total 118 240 Output Total 1495 250 550 Balance -1377 -250 -310 Intake: Oral 118 240 Output: Urine 1495 250 550 Other: Voiding Method Urinal Urinal # Voids 2 # Bowel Movements 1 - Labs CBC & Chem 7: 02/16/23 08:34 02/16/23 08:34 Labs: Abnormal Lab Results - Last 24 Hours (Table) 02/15/23 02/15/23 02/16/23 Range/Units 16:43 20:10 06:09 WBC (3.8-10.6) k/uL RBC (4.30-5.90) m/uL Hgb (13.0-17.5) gm/dL Hct (39.0-53.0) % BUN (9-20) mg/dL Creatinine (0.66-1.25) mg/dL Glucose (74-99) mg/dL POC Glucose (mg/dL) 203 H 252 H 180 H (70-110) mg/dL 02/16/23 02/16/23 02/16/23 Range/Units 08:34 08:34 11:19 WBC 12.4 H (3.8-10.6) k/uL RBC 3.53 L (4.30-5.90) m/uL Hgb 10.5 L (13.0-17.5) gm/dL Hct 33.2 L (39.0-53.0) % BUN 39 H (9-20) mg/dL Creatinine 1.77 H (0.66-1.25) mg/dL Glucose 192 H (74-99) mg/dL POC Glucose (mg/dL) 215 H (70-110) mg/dL
[2023-02-16] MEDS: ALBUTEROL NEBULIZED 2.5 MG/3 ML INHALATION PRN ×2 (15:34→21:51)
[2023-02-16 16:29] LABS: Glucose,Whole Blood 259 mg/dL (70-110)
[2023-02-16] MEDS: LACTOBACILLUS ACIDOPHILUS/PECT 1 EACH CAPSULE PO SCH ×2 (17:49→20:58)
[2023-02-16] MEDS: TOPIRAMATE 25 MG TAB PO SCH (20:59)
[2023-02-16] MEDS: ATORVASTATIN 80 MG TAB PO SCH (20:59)
[2023-02-16] MEDS ORDERED: INSULIN DETEMIR (LEVEMIR) 100 UNIT/ML SYR SQ SCH (21:00)
[2023-02-16 21:58] LABS: Glucose,Whole Blood 199 mg/dL (70-110)
[2023-02-17 06:12] LABS: Glucose,Whole Blood 197 mg/dL (70-110)
[2023-02-17] MEDS: INSULIN ASPART (NovoLOG) 100 UNIT/ML VIAL SQ SCH ×2 (06:24→12:54)
[2023-02-17] MEDS: PIPERACILLIN-TAZOBACTAM 3.375 GM in SODIUM CHLORIDE 0.9% 100 ML IVPB SCH ×2 (06:31→12:55)
[2023-02-17] MEDS: IPRATROPIUM-ALBUTEROL 3 ML NEB INHALATION PRN ×3 (07:50→15:16)
[2023-02-17] MEDS ORDERED: LIDOCAINE 1% INJ 10MG/ML (20 ML MDV) SQ ONE (08:38)
[2023-02-17] MEDS: LACTOBACILLUS ACIDOPHILUS/PECT 1 EACH CAPSULE PO SCH ×2 (09:40→12:55)
[2023-02-17] MEDS: FUROSEMIDE 40 MG TAB PO SCH (09:40)
[2023-02-17] MEDS: ISOSORBIDE MONONITRATE ER 30 MG TAB.ER.24H PO SCH (09:40)
[2023-02-17] MEDS: METOPROLOL TARTRATE 12.5 MG TAB PO SCH (09:40)
[2023-02-17] MEDS: FERROUS SULFATE 325 MG TAB PO SCH (09:40)
[2023-02-17] MEDS: ASPIRIN 81 MG PO SCH (09:40)
[2023-02-17] MEDS: FAMOTIDINE 20 MG TAB PO SCH (09:40)
[2023-02-17] MEDS: CLOPIDOGREL 75 MG TAB PO SCH (09:40)
[2023-02-17] MEDS: HEPARIN SODIUM,PORCINE 5,000 UNIT/ML 1 ML VIAL SQ SCH (09:41)
[2023-02-17] MEDS: SUCRALFATE 1 GM TAB PO SCH ×2 (09:41→12:55)
--- NOTE | 2023-02-17 10:12 | IR ---
PICC LINE PLACEMENT: HISTORY: Infection requiring long-term antibiotic therapy PROCEDURE: Ultrasound and fluoroscopic guidance of PICC line placement. COMPLICATIONS: None ANESTHESIA: 1. 1% Lidocaine locally. FINDINGS/TECHNIQUE: The procedure was explained to the patient. The risks, complications, benefits and alternatives were discussed and any questions were answered. Informed consent was obtained. The patient was placed supine on the fluoroscopic table and prepped and draped in the usual sterile fash ion. Utilizing a 21 gauge needle and sonographic and fluoroscopic guidance, access in the right bas ilic vein was achieved and there is placement of a 0.018 guidewire. The vein is patent. A 4-F sheat h was placed over the guidewire. The guidewire and dilator were removed and a 4-F. PICC line was david kasey through the sheath with the tip at the level of the SVC. The sheath was removed, the catheter wa s flushed and sutured into position. The patient was stable throughout the procedure and remained st able upon discharge from the Department of Radiology. The vein puncture was patent under ultrasound. A turner scale image was obtained to document patency of the vein punctured. All elements of the maximal barrier technique were utilized. FLUOROSCOPY TIME: DAP 0.1668Gy cm2 IMPRESSION: Successful PICC line placement under ultrasound and fluoroscopic guidance.
[2023-02-17 11:30] VITALS: BP 160/74; RESP 19; TEMP 98.4
[2023-02-17 11:30] LABS: Glucose,Whole Blood 213 mg/dL (70-110)
--- NOTE | 2023-02-17 11:57 | P.PN ---
Subjective Patient is seen for follow-up for acute kidney injury. He is currently maintained on antibiotics for left foot wound. Currently with wound VAC. Maintained on oral Lasix for volume overload and lower extremity edema. Serum creatinine decreased to 1.7 . Previous creatinine 1.2 on 02/09/2023. No urine retention identified. Objective - Vital Signs Vital signs: Vital Signs Temp 98.4 F 02/17/23 11:25 Pulse 87 02/17/23 11:25 Resp 19 02/17/23 11:25 BP 160/74 02/17/23 11:25 Pulse Ox 99 02/17/23 11:25 FiO2 Intake & Output 02/16/23 02/17/23 02/17/23 18:59 06:59 18:59 Intake Total 690 Output Total 550 850 Balance 140 -850 Weight 125.5 kg Intake: Oral 690 Output: Urine 550 850 Other: Voiding Method Urinal Urinal # Voids 2 - Exam Patient is awake, comfortable, no acute distress Examination of the heart S1 and S2 Examination of the lungs bilateral breath sounds are heard Abdomen is soft obese nontender Examination lower extremity shows edema 2+ bilaterally wound VAC noted on left foot - Labs CBC & Chem 7: 02/16/23 08:34 02/16/23 08:34 Labs: Abnormal Lab Results - Last 24 Hours (Table) 02/16/23 02/16/23 02/17/23 Range/Units 16:26 21:56 06:10 POC Glucose (mg/dL) 259 H 199 H 197 H (70-110) mg/dL 02/17/23 Range/Units 11:22 POC Glucose (mg/dL) 213 H (70-110) mg/dL Microbiology - Last 24 Hours (Table) 02/11/23 15:35 Blood Culture - Final Blood Assessment and Plan Assessment: 1. Acute kidney injury secondary to septic ATN. Creatinine 1.23 on admission and decreased to 2.0 from 2.2 yesterday. No hydronephrosis noted on kidney ultrasound. Left kidney not visualized. No urinary retention. Baseline creatinine near 1 from November 2022. 2. Left foot osteomyelitis status post amputation of left fifth toe this admission. Also noted to be bacteremic. On IV antibiotics. 3. Diabetes mellitus. 4. Volume overload. 5. Coronary artery disease status post CABG. Plan: Continue oral Lasix Continue with antibiotics Avoid nephrotoxic agents
[2023-02-17 12:05] LABS: HCT 30.5 % (39.0-53.0); HGB 9.8 gm/dL (13.0-17.5); Hypochromasia Moderate; MCH 30.6 pg (25.0-35.0); MCHC 32.1 g/dL (31.0-37.0); MCV 95.2 fL (80.0-100.0); Mean Platelet Volume 7.8; Platelet Count 262 k/uL (150-450); WBC 9.7 k/uL (3.8-10.6)
[2023-02-17 12:20] VITALS: PULSE 90
[2023-02-17 12:28] LABS: African American GFR (CKD) 44 (>60 ml/min/1.73 sqM); Anion Gap 11 mmol/L; Blood Urea Nitrogen 37 mg/dL (9-20); Calcium 8.4 mg/dL (8.4-10.2); Carbon Dioxide 27 mmol/L (22-30); Chloride 102 mmol/L (98-107); Glucose 191 mg/dL (74-99); Magnesium 1.7 mg/dL (1.6-2.3); Non-African American GFR(CKD) 38 (>60 ml/min/1.73 sqM); Potassium 3.4 mmol/L (3.5-5.1); Sodium 140 mmol/L (137-145)
--- NOTE | 2023-02-17 14:02 | P.PN ---
Subjective Progress Note Date: 02/17/23 History of present illness: This is a Pleasant 67-year-old gentleman who follows with Dr. Mai in the off ice he has a known history of hypertension, hyperlipidemia, diabetes, CAD, cardiomyopathy with an ejection fraction of 25-30% in December of this year, and peripheral arterial disease status post PTCA on 01/20/2023 of the left, prior amputation of the distal right foot done at [facility]. He was admitted to the hospital recently with congestive heart failure. At that time he was diuresed and discharged home on some tolerated and when directed medical therapy. During that admission he was noted to have a wound on his left fifth toe that appeared to be infected. He presented this admission due to the infected foot wound. There was evidence of osteomyelitis. He underwent left fifth toe amputation with debridement and placement of wound VAC yesterday by Dr. Short. We were asked to see the patient in consultation due to recent left SFA intervention. From a cardiac standpoint he continues to feel short of breath with some orthopnea but this appears to be relatively stable. He's had no chest discomfort. He has worsening edema in the left lower extremity, stable mild edema in the right lower extremity. He's had no palpitations, dizziness or syncope. Vital signs have been stable. Labs show worsening renal function with a BUN of 55 and creatinine 2.22. 02/14/2023 He was seen and examined resting comfortably in a chair. BUN and creatinine look a bit worse today despite decreasing diuretics and his feeling more congested with a cough and more wheezing as well as worsening edema. Vital signs and stable. 02/15 Patient is seen today in follow-up. Patient was transferred from the fourth floor due to chest pain and was started on a heparin drip. This morning, patient does not remember having any chest pain. His initial troponin on 02/09. Blood pressure 148/80, heart rate in the 80s, pulse ox 95% on room air. Repeat blood work reveals WBC 10.9, hemoglobin 10.5. Electrolytes normal. BUN 54 creatinine 2.09. Patient is scheduled for PICC line insertion today. 02/16 Heparin drip was discontinued yesterday and transition to subcu. Heart rate is in the 80s and 90s, blood pressure 136/69. Patient is currently in a sinus rhythm. I'll repeat blood work reveals BUN of 39 creatinine 1.77. We will plan to continue to monitor renal function before starting ARB. 02/17 Patient has been maintained on Imdur and aspirin Plavix and statin. He has not been started her resumed on losartan due to renal function. Blood pressure 162/77, heart rate running between 94-104 in sinus rhythm. No new concerns from the patient. BUN 37 and creatinine 1.82, potassium 3.4 and will be replaced. Physical examination: Gen: This is a 67-year-old male appears to be in no acute distress VS: reviewed HEENT: Head is atraumatic, normocephalic. Pupils equal, round. Sclerae is ani cteric. LUNGS: Clear to auscultation. No wheezes or rhonchi. No intercostal retractions. HEART: Regular rate and rhythm. No murmur. ABDOMEN: Soft No tenderness. EXTREMITIES: Transmetatarsal amputation right foot, new amputation of left fifth toe with wound VAC, positive lower extremity edema. NEUROLOGICAL: Patient is awake, alert and oriented x3. 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 At the time of discharge, patient will be following up with Dr. Flores in one to 2 weeks. Nurse practitioner note has been reviewed, I agree with documented findings and plan of care. Patient was seen and examined. Objective - Vital Signs Vital signs: Vital Signs Temp 98.1 F 02/17/23 07:19 Pulse 90 02/17/23 08:03 Resp 19 02/17/23 07:19 BP 162/77 02/17/23 07:19 Pulse Ox 97 02/17/23 07:51 FiO2 Intake & Output 02/16/23 02/17/23 02/17/23 18:59 06:59 18:59 Intake Total 690 Output Total 550 850 Balance 140 -850 Weight 125.5 kg Intake: Oral 690 Output: Urine 550 850 Other: Voiding Method Urinal # Voids 2 - Labs CBC & Chem 7: 02/17/23 11:26 02/17/23 11:26 Labs: Abnormal Lab Results - Last 24 Hours (Table) 02/16/23 02/16/23 02/16/23 Range/Units 08:34 08:34 11:19 WBC 12.4 H (3.8-10.6) k/uL RBC 3.53 L (4.30-5.90) m/uL Hgb 10.5 L (13.0-17.5) gm/dL Hct 33.2 L (39.0-53.0) % BUN 39 H (9-20) mg/dL Creatinine 1.77 H (0.66-1.25) mg/dL Glucose 192 H (74-99) mg/dL POC Glucose (mg/dL) 215 H (70-110) mg/dL 02/16/23 02/16/23 02/17/23 Range/Units 16:26 21:56 06:10 WBC (3.8-10.6) k/uL RBC (4.30-5.90) m/uL Hgb (13.0-17.5) gm/dL Hct (39.0-53.0) % BUN (9-20) mg/dL Creatinine (0.66-1.25) mg/dL Glucose (74-99) mg/dL POC Glucose (mg/dL) 259 H 199 H 197 H (70-110) mg/dL Microbiology - Last 24 Hours (Table) 02/11/23 15:35 Blood Culture - Final Blood
--- NOTE | 2023-02-17 14:15 | P.DS ---
Providers Date of admission: 02/09/23 18:07 Expected date of discharge: 02/17/23 Attending physician: Betito Corcoran MD Consults: 02/09/23 18:02 Consult Physician Urgent Consulting Provider: Jessica Thompson Consult Reason/Comments: Osteomyelitis Do you want consulting provider notified?: Yes 02/10/23 08:37 Consult Physician Routine Consulting Provider: Marjan Short Consult Reason/Comments: foot osteomyelitis Do you want consulting provider notified?: Yes 02/12/23 09:12 Consult Physician Routine Consulting Provider: John Flores Consult Reason/Comments: Known, recent lower extremity intervention Do you want consulting provider notified?: Yes 02/14/23 10:07 Consult Physician Routine Consulting Provider: Walter Yang Consult Reason/Comments: ROSE Do you want consulting provider notified?: Yes Primary care physician: Connor Nicholson MD Hospital Course: Discharge Diagnosis: Sepsis secondary to left foot osteomyelitis status post left fifth toe amputation, diabetic foot infection Morganella bacteremia Peripheral arterial disease NSTEMI, type II Acute exacerbation of systolic congestive heart failure with ejection fraction 25% Elevated troponin, nonischemic CAD status post CABG Acute on chronic hypoxic respiratory failure Insulin-dependent diabetes, with hypoglycemia Acute kidney injury, improving Hospital Course: Patient is a 67-year-old male with diabetes, hypertension, systolic congestive heart failure with ejection fraction 25% that is well-known to our service from multiple recent hospitalizations who presented to the ER at the direction of his home care nurse due to worsening left foot wound. The ER he underwent an extensive evaluation. Workup revealed possible osteomyelitis of the left fifth toe with sepsis. The patient was started on vancomycin and Zosyn. Arrangements are made for admission. Infectious disease was consulted. Vascular surgery was also consulted and recommended amputation of the left fifth toe. Patient's blood cultures returned positive for Morganella. His left foot wound cultures then came back positive for Morganella and Enterobacter. Infectious disease recommended discontinuing vancomycin and continuing with Zosyn. Patient did undergo amputation of the left fifth toe with wound VAC placement on 02/12/23. He had left greater than right lower extremity edema and left lower extremity Doppler showed No DVT. He had significant hypoglycemia on the morning of 02/14. His insulin was adjusted. He Had chest pain overnight on 02/14 and was t ransferred to the cardiac unit and had a heparin gtt started. His seen by cardiology who felt this is more likely a type II non-STEMI and cleared him for discharge. He continued to do well. He had a PICC line placed on the morning of 02/17/23. Determined that he needed 3 more weeks of IV Zosyn. He was determined stable for discharge. He will be going to [facility]. Follow-up: Dr. Thompson in 1 week, Dr. Butt in 2-3 weeks, Dr. Bacon in 2 weeks, Zosyn 3.375 g IV piggyback every 8 hours. Repeat CBC and basic metabolic profile within 3 days. Patient does have very labile blood sugars and therefore will be continued on Levemir 40 units at night and NovoLog sliding scale. Patient seen and examined at bedside. He is still having some diarrhea. No chest pain, no shortness of breath. Upset about going to rehab. Vital signs reviewed and stable. General: nontoxic, no distress, appears at stated age Cardiovascular: S1S2 reg, no murmur, positive posterior tibial pulse bilateral, Lungs: Ronchi b/l bases , no accessory muscle use Abdominal: soft, nontender to palpation, no guarding, no appreciable organomegaly Ext: no gross muscle atrophy,2+ edema b/l LE, wound vac in place Neuro: CN II-XI grossly intact, no focal neuro deficits Psych: Alert, oriented, appropriate affect A total of 35 minutes of time were spent preparing this complex discharge summary. Patient was discharged on 02/17/23. This dictation was prepared using [employer] voice recognition software. Though every attempt is made to correct errors during dictation some may still exist. Plan - Discharge Summary Discharge Rx Participant: Yes New Discharge Prescriptions: New Lactobacillus Acidophilus [Acidophilus Probiotic] 1 each PO AC-BID #60 capsule Insulin Detemir (Levemir) [Levemir] 40 unit SQ HS each INSULIN ASPART (NovoLOG) [NovoLOG (formulary)] 0 unit SQ ACHS #1 each Piperacillin-Tazobactam [Zosyn] 3.375 gm IVPB Q8H #63 each HYDROcodone/APAP 5-325MG [[place] 5-325] 1 each PO Q6HR PRN #12 tab PRN Reason: Moderate To Severe Pain (4-10) Continue Atorvastatin [Lipitor] 80 mg PO HS@2000 Aspirin EC [Ecotrin Low Dose] 81 mg PO DAILY@0800 Ipratropium-Albuterol Nebulize [Duoneb 0.5 mg-3 mg/3 ml Soln] 3 ml INHALATION RT-QID PRN PRN Reason: Shortness Of Breath Clopidogrel Bisulfate [Plavix] 75 mg PO DAILY@0800 Famotidine [Pepcid] 20 mg PO BID@0800,1999 Acetaminophen [Tylenol] 650 mg PO QID PRN PRN Reason: Fever And/ Or Pain Albuterol Sulfate [Albuterol Sulfate Hfa] 1 - 2 puff INHALATION RT-Q4H PRN PRN Reason: Shortness Of Breath Isosorbide Mononitrate ER [Imdur] 30 mg PO DAILY@0800 Metoprolol Tartrate [Lopressor] 12.5 mg PO BID@0800,1999 Ferrous Sulfate [Iron (65 MG Elemental)] 325 mg PO DAILY@0800 Topiramate [Topamax] 25 mg PO HS@1999 Dicyclomine 10mg/5ml Oral Solution 10 mg PO TID@0800,1700,1999 Nitroglycerin Sl Tabs [Nitrostat] 0.4 mg SL Q5M PRN PRN Reason: Chest Pain Sucralfate [Sucralfate Oral Susp] 1 gm PO ACHS@08,12,17,20 Furosemide [Lasix] 40 mg PO TID #0 Changed Lactulose [Cephulac] 20 gm PO DAILY@0800 PRN #0 PRN Reason: Constipation Discontinued Insulin Aspart (Niacinamide) [Fiasp 100 Unit/ml Flextouch Pen] 25 units SQ BID Dulaglutide [Trulicity] 1.5 mg SQ TH traMADol HCL 50 mg PO Q6H Collagenase [Santyl Ointment] 1 applic TOPICAL DAILY Losartan [Cozaar] 12.5 mg PO DAILY #0 tab Insulin Glargine,Hum.rec.anlog [Basaglar Kwikpen U-100] 75 units SQ HS Discharge Medication List Aspirin EC [Ecotrin Low Dose] 81 mg PO DAILY@0800 01/12/19 [History] Atorvastatin [Lipitor] 80 mg PO HS@199901/12/19 [History] Clopidogrel Bisulfate [Plavix] 75 mg PO DAILY@0800 07/28/21 [History] Ferrous Sulfate [Iron (65 MG Elemental)] 325 mg PO DAILY@0800 07/28/21 [History] Ipratropium-Albuterol Nebulize [Duoneb 0.5 mg-3 mg/3 ml Soln] 3 ml INHALATION RT-QID PRN 07/28/21 [History] Famotidine [Pepcid] 20 mg PO BID@0800,199903/18/22 [History] Topiramate [Topamax] 25 mg PO HS@199904/01/22 [History] Acetaminophen [Tylenol] 650 mg PO QID PRN 04/22/22 [History] Albuterol Sulfate [Albuterol Sulfate Hfa] 1 - 2 puff INHALATION RT-Q4H PRN 04/22/22 [History] Dicyclomine 10mg/5ml Oral Solution 10 mg PO TID@0800,1700,199907/06/22 [History] Isosorbide Mononitrate ER [Imdur] 30 mg PO DAILY@0800 07/06/22 [History] Nitroglycerin Sl Tabs [Nitrostat] 0.4 mg SL Q5M PRN 10/20/22 [History] Metoprolol Tartrate [Lopressor] 12.5 mg PO BID@0800,199912/08/22 [History] Sucralfate [Sucralfate Oral Susp] 1 gm PO ACHS@08,12,17,20 12/08/22 [History] Furosemide [Lasix] 40 mg PO TID #0 02/03/23 [Rx] HYDROcodone/APAP 5-325MG [[place] 5-325] 1 each PO Q6HR PRN #12 tab 02/17/23 [Rx] INSULIN ASPART (NovoLOG) [NovoLOG (formulary)] 0 unit SQ ACHS #1 each 02/17/23 [Rx] Insulin Detemir (Levemir) [Levemir] 40 unit SQ HS each 02/17/23 [Rx] Lactobacillus Acidophilus [Acidophilus Probiotic] 1 each PO AC-BID #60 capsule 02/17/23 [Rx] Lactulose [Cephulac] 20 gm PO DAILY@0800 PRN #0 02/17/23 [Rx] Piperacillin-Tazobactam [Zosyn] 3.375 gm IVPB Q8H #63 each 02/17/23 [Rx] Follow up Appointment(s)/Referral(s): Marjan Short DO [STAFF PHYSICIAN] - 2 Weeks W[facility] [NON-STAFF] - 02/24/23 10:00 am Jessica Thompson MD [STAFF PHYSICIAN] - 1 Week [facility], [NON-STAFF] - As Needed Activity/Diet/Wound Care/Special Instructions: Activity: As tolerated. Off left foot as able, can heel touch as needed. Diet: Carb consistent, 2 gram sodium, 2L fluid restriction Wound Care: Maintain wound vac, will be following with [facility] wound care Special Instructions: Check Blood sugar 3 times daily Check basic metabolic profile and CBC in 3 days. Daily weights Discharge Disposition: HOME SELF-CARE
== END 2023-02-17 15:38 | disposition home or self-care (01) | DRG 853 ==
LOC: EC 13:49 → 4SSUR 18:07 → 3SCARD 02-15 00:09
PROVIDERS: ADMIT Student in an Organized Health Care Education/Training Program; ATTEND Student in an Organized Health Care Education/Training Program
PROC: 0Y6Y0Z0 Detachment at Left 5th Toe, Complete, Open Approach (ICD-10-PCS; principal; 2023-02-12 11:15)
PROC: 02HV33Z Insertion of Infusion Device into Superior Vena Cava, Percutaneous Approach (ICD-10-PCS; 2023-02-17)
DX: A41.50 Gram-negative sepsis, unspecified (principal); I21.A1 Myocardial infarction type 2; I50.23 Acute on chronic systolic (congestive) heart failure; J96.21 Acute and chronic respiratory failure with hypoxia; N17.0 Acute kidney failure with tubular necrosis; M86.172 Other acute osteomyelitis, left ankle and foot; F03.93 Unspecified dementia, unspecified severity, with mood disturbance; F03.94 Unspecified dementia, unspecified severity, with anxiety; I42.9 Cardiomyopathy, unspecified; I47.19 Other supraventricular tachycardia; J98.11 Atelectasis; E11.69 Type 2 diabetes mellitus with other specified complication; E11.51 Type 2 diabetes mellitus with diabetic peripheral angiopathy without gangrene; J44.9 Chronic obstructive pulmonary disease, unspecified; E11.621 Type 2 diabetes mellitus with foot ulcer; E11.628 Type 2 diabetes mellitus with other skin complications; F32.A Depression, unspecified; L97.524 Non-pressure chronic ulcer of other part of left foot with necrosis of bone; Z99.81 Dependence on supplemental oxygen; Z95.820 Peripheral vascular angioplasty status with implants and grafts; I11.0 Hypertensive heart disease with heart failure; E11.649 Type 2 diabetes mellitus with hypoglycemia without coma; F20.9 Schizophrenia, unspecified; E78.5 Hyperlipidemia, unspecified; H91.90 Unspecified hearing loss, unspecified ear; I25.10 Atherosclerotic heart disease of native coronary artery without angina pectoris; I25.2 Old myocardial infarction; I45.10 Unspecified right bundle-branch block; K21.9 Gastro-esophageal reflux disease without esophagitis; M19.90 Unspecified osteoarthritis, unspecified site; I87.2 Venous insufficiency (chronic) (peripheral); K59.00 Constipation, unspecified; Z79.02 Long term (current) use of antithrombotics/antiplatelets; Z79.2 Long term (current) use of antibiotics; Z79.4 Long term (current) use of insulin; Z79.82 Long term (current) use of aspirin; Z79.899 Other long term (current) drug therapy; Z85.841 Personal history of malignant neoplasm of brain; Z89.511 Acquired absence of right leg below knee; Z95.1 Presence of aortocoronary bypass graft; Z98.61 Coronary angioplasty status
CPT/HCPCS: 36415; 36573; 71045; 76770; 80048; 80053; 80202; 81001; 81003; 82565; 83036; 83605; 83735; 84484; 85025; 85027; 85610; 85652; 85730; 86140; 86850; 86900; 86901; 87040; 87070; 87077; 87186; 87205; 87324; 87636; 93005; 94640; 94760; 96361; 96365; 96366; 96367; 96368; 96375; 99291

== ENCOUNTER 2023-03-31 19:39 | Emergency (ER) | payer OTHER ==
--- NOTE | 2023-03-31 19:51 | ED ---
General Adult HPI - General Chief complaint: Syncope Stated complaint: Low O2, nausea, Time Seen by Provider: 03/31/23 19:47 Source: patient, EMS Mode of arrival: EMS Limitations: no limitations - History of Present Illness Initial comments: Patient presents to the ED from his [place] [facility] by ambulance for evaluation. Patient reports that he had a left foot amputation performed about 3 weeks ago, and he had a follow-up appointment with his target man today. He states that his target man "had some strong words" for his [place] [facility] staff, accusing them of not caring for him appropriately. He states that the staff then became mad at him and this precipitated him becoming shaky and nauseated. Patient states that he still feels this way. Patient denies feeling lightheaded/dizzy/near- syncopal to me. Patient states he was laying down the entire time, and he states that he did not feel dizzy at any point. Patient denies experiencing any heart palpitations. Patient denies known fever, trauma or injury, headache, focal neuro deficit, chest pain or pressure, dyspnea, cough or cold symptoms, abdominal pain, vomiting, diarrhea or constipation, bloody or melanotic stool, dysuria or urinary symptoms, calf swelling or pain, or any other symptoms or complaints. - Related Data Home Medications Medication Instructions Recorded Confirmed Aspirin EC [Ecotrin Low Dose] 81 mg PO DAILY@0801/12/19 03/31/23 Atorvastatin [Lipitor] 80 mg PO HS@199901/12/19 03/31/23 Clopidogrel Bisulfate [Plavix] 75 mg PO DAILY@0807/28/21 03/31/23 Ferrous Sulfate [Iron (65 MG 325 mg PO DAILY@0807/28/21 03/31/23 Elemental)] Ipratropium-Albuterol Nebulize 3 ml INHALATION RT-QID@,,,07/28/21 03/31/23 [Duoneb 0.5 mg-3 mg/3 ml Soln] Famotidine [Pepcid] 20 mg PO BID@08,199903/18/22 03/31/23 Topiramate [Topamax] 25 mg PO HS@199904/01/22 03/31/23 Acetaminophen [Tylenol] 650 mg PO QID PRN 04/22/22 03/31/23 Albuterol Sulfate [Albuterol 1 - 2 puff INHALATION RT-Q4H PRN 04/22/22 03/31/23 Sulfate Hfa] Dicyclomine 10mg/5ml Oral Solution 10 mg PO TID@0800,1200,1700 07/06/22 03/31/23 Isosorbide Mononitrate ER [Imdur] 30 mg PO DAILY@0800 07/06/22 03/31/23 Nitroglycerin Sl Tabs [Nitrostat] 0.4 mg SL Q5M PRN 10/20/22 03/31/23 Metoprolol Tartrate [Lopressor] 12.5 mg PO BID@0800,199912/08/22 03/31/23 Sucralfate [Sucralfate Oral Susp] 1 gm PO ACHS@07,11,1630,212912/08/22 03/31/23 Furosemide [Lasix] 40 mg PO BID@0600,1400 03/31/23 03/31/23 HYDROcodone/APAP 5-325MG [Bishop 1 tab PO Q6HR PRN 03/31/23 03/31/23 5-325] INSULIN ASPART (NovoLOG) [NovoLOG See Protocol SQ 03/31/23 03/31/23 (formulary)] ACHS@07,11,1629,2129 Insulin Detemir (Levemir) [Levemir] 40 unit SQ HS@212903/31/23 03/31/23 Sivakumar Packet 1 packet PO BID@0800,1700 03/31/23 03/31/23 Lactobacillus Acidophilus 1 cap PO BID@0800,1700 03/31/23 03/31/23 [Acidophilus Probiotic] Levofloxacin [Levaquin] 500 mg PO DAILY 03/31/23 03/31/23 Magic Butt Paste 1 applic TOPICAL BID 03/31/23 03/31/23 Magnesium Hydroxide [Milk of 7,200 mg PO DAILY PRN 03/31/23 03/31/23 Magnesia Concentrate] Na Phos,M-B/Na Phos,Di-Ba [Fleet 133 ml RECTAL DAILY PRN 03/31/23 03/31/23 Adult] bisacodyL [Dulcolax] 10 mg RECTAL DAILY PRN 03/31/23 03/31/23 Previous Rx's Medication Instructions Recorded Lactulose [Cephulac] 20 gm PO DAILY@0800 PRN #0 02/17/23 Allergies Allergy/AdvReac Type Severity Reaction Status Date / Time furosemide [From Lasix] AdvReac Unknown Verified 03/31/23 22:13 sacubitril [From Entresto] AdvReac made him Verified 03/31/23 22:13 hypotensive valsartan [From Entresto] AdvReac made him Verified 03/31/23 22:13 hypotensive Review of Systems ROS Statement: Those systems with pertinent positive or pertinent negative responses have been documented in the HPI. ROS Other: All systems not noted in ROS Statement are negative. Past Medical History Past Medical History: Cancer, Heart Failure, Dementia, Diabetes Mellitus, GERD/Reflux, Hearing Disorder / Deafness, Hyperlipidemia, Hypertension, Myocardial Infarction (MO), Osteoarthritis (OA), Pneumonia Additional Past Medical History / Comment(s): Brain CA (30 years ago) in remission. 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 Mother Additional Family Medical History / Comment(s): Mother had a bad heart. General Exam Limitations: no limitations General appearance: alert, in no apparent distress Head exam: Present: normocephalic Eye exam: Present: normal appearance, PERRL, EOMI ENT exam: Present: mucous membranes moist Neck exam: Present: other (Trachea is midline) Respiratory exam: Present: normal lung sounds bilaterally. Absent: respiratory distress, wheezes, rales, rhonchi, stridor Cardiovascular Exam: Present: regular rate, normal rhythm, normal heart sounds, other (Normal radial pulses bilaterally) GI/Abdominal exam: Present: soft. Absent: tenderness, guarding Extremities exam: Present: other (Status post left fifth toe amputation with dressing in place). Absent: pedal edema, calf tenderness Neurological exam: Present: alert, oriented X3, CN II-XII intact. Absent: motor sensory deficit Psychiatric exam: Present: anxious Skin exam: Present: warm, dry, normal color Course Vital Signs 03/31/23 03/31/23 19:43 21:05 Temperature 99.3 F Pulse Rate 105 H 102 H Respiratory 20 20 Rate Blood Pressure 135/55 111/65 O2 Sat by Pulse 100 100 Oximetry - Reevaluation(s) Reevaluation #1: 03/31/23 22:36 Patient reports that his symptoms have improved with ED treatment, and he denies development of any new symptoms while in the ED. Patient remains alert and breathing comfortable. Patient is aware of his test results, and he feels comfortable being discharged back to his [place] [facility] facility at this time. Patient was counseled about nausea and he was clearly explained return and follow-up instructions. Patient was instructed to follow up closely with his primary care provider. Patient feels comfortable to plan. EKG Findings - EKG Comments: EKG Findings:: ED physician interpretation (interpreted by me): Sinus tachycardia, single premature complex, right bundle branch block, normal [place] interval, QRS duration of 165 ms, normal QT interval, normal axis, LVH with strain appearance, no ST elevation, no significant change when compared to 1 04/14/2022 EKG Medical Decision Making - Medical Decision Making Was pt. sent in by a medical professional or institution (, [facility], [employer], urgent care, hospital, or [place] [facility]...) When possible be specific @ -No Did you speak to anyone other than the patient for history (EMS, parent, family, police, friend...)? What history was obtained from this source @ -No Did you review nursing and triage notes (agree or disagree)? Why? @ -I reviewed and agree with nursing and triage notes Were old charts reviewed (outside hosp., previous admission, EMS record, old EKG, old radiological studies, urgent care reports/EKG's, [place] [facility] records)? Report findings @ -No old charts were reviewed Differential Diagnosis (chest pain, altered mental status, abdominal pain women, abdominal pain men, vaginal bleeding, weakness, fever, dyspnea, syncope, headache, dizziness, GI bleed, back pain, seizure, CVA, palpatations, mental health, musculoskeletal)? @ -Nausea, electrolyte abnormality, renal disease, viral illness, anxiety, medication reaction, sepsis, infection, MO, food toxicity, dysrhythmia, anemia, hyperglycemia, hypoglycemia EKG interpreted by me (3pts min.). @ -As above X-rays interpreted by me (1pt min.). @ -Chest x-ray shows no acute abnormality. I agree with the radiologist's interpretation as above. CT interpreted by me (1pt min.). @ -None done U/S interpreted by me (1pt. min.). @ -None done What testing was considered but not performed or refused? (CT, X-rays, U/S, la bs)? Why? @ -None What meds were considered but not given or refused? Why? @ -None Did you discuss the management of the patient with other professionals (professionals i.e. , PA, [employer], lab, RT, psych nurse, clinical social work aide, catering manager, teacher, agricultural technical officer, counter caser)? Give summary @ -No Was smoking cessation discussed for >3mins.? @ -No Was critical care preformed (if so, how long)? @ -No Were there social determinants of health that impacted care today? How? (Homelessness, low income, unemployed, alcoholism, drug addiction, transportation, low edu. Level, literacy, decrease access to med. care, half-way, rehab)? @ -No Was there de-escalation of care discussed even if they declined (Discuss DNR or withdrawal of care, Hospice)? DNR status @ -No What co-morbidities impacted this encounter? (DM, HTN, Smoking, COPD, CAD, Cancer, CVA, ARF, Chemo, Hep., AIDS, mental health diagnosis, sleep apnea, morbid obesity)? @ -None Was patient admitted / discharged? Hospital course, mention meds given and route, prescriptions, significant lab abnormalities, going to OR and other pertinent info. @ -Patient reports developing nausea and "shakiness" after the staff at his [place] [facility] got mad at him. Patient states that his symptoms have improved with ED treatment. Patient was treated with IV fluids, IV Zofran and IV Ativan in the ED. Patient's troponin is within normal limits. Patient's EKG is unchanged from his prior. Patient's chest x-ray is fairly unremarkable. Patient's labs are fairly close to baseline. I do not suspect an emergent medical condition at this time. Will discharge patient back to his [place] [facility] facility at this time. Strict return instructions were provided. Patient feels comfortable with this plan. Undiagnosed new problem with uncertain prognosis? @ -No Drug Therapy requiring intensive monitoring for toxicity (Heparin, Nitro, Insulin, Cardizem)? @ -No Were any procedures done? @ -No Diagnosis/symptom? @ -Nausea and shakiness Acute, or Chronic, or Acute on Chronic? @ -Acute] Uncomplicated (without systemic symptoms) or Complicated (systemic symptoms)? @ -default Side effects of treatment? @ -No Exacerbation, Progression, or Severe Exacerbation? @ -No Poses a threat to life or bodily function? How? (Chest pain, USA, MO, pneumonia, PE, COPD, DKA, ARF, appy, cholecystitis, CVA, Diverticulitis, Homicidal, Suicidal, threat to staff... and all critical care pts) @ -No - Lab Data Result diagrams: 03/31/23 20:02 03/31/23 20:02 Lab Results 03/31/23 03/31/23 03/31/23 Range/Units 20:02 20:02 20:02 WBC 9.8 (3.8-10.6) k/uL RBC 3.44 L (4.30-5.90) m/uL Hgb 10.2 L (13.0-17.5) gm/dL Hct 31.0 L (39.0-53.0) % MCV 90.2 (80.0-100.0) fL MCH 29.8 (25.0-35.0) pg MCHC 33.0 (31.0-37.0) g/dL RDW 15.0 (11.5-15.5) % Plt Count 199 (150-450) k/uL MPV 8.1 Neutrophils % 80 % Lymphocytes % 10 % Monocytes % 4 % Eosinophils % 4 % Basophils % 0 % Neutrophils # 7.8 H (1.3-7.7) k/uL Lymphocytes # 1.0 (1.0-4.8) k/uL Monocytes # 0.4 (0-1.0) k/uL Eosinophils # 0.3 (0-0.7) k/uL Basophils # 0.0 (0-0.2) k/uL PT 10.6 (10.0-12.5) sec INR 1.0 (<1.2) APTT 24.7 (22.0-30.0) sec Sodium 140 (137-145) mmol/L Potassium 4.2 (3.5-5.1) mmol/L Chloride 101 (98-107) mmol/L Carbon Dioxide 25 (22-30) mmol/L Anion Gap 14 mmol/L BUN 77 H (9-20) mg/dL Creatinine 1.35 H (0.66-1.25) mg/dL Est GFR (CKD-EPI)AfAm 63 (>60 ml/min/1.73 sqM) Est GFR (CKD-EPI)NonAf 55 (>60 ml/min/1.73 sqM) Glucose 257 H (74-99) mg/dL Calcium 9.1 (8.4-10.2) mg/dL Magnesium 2.1 (1.6-2.3) mg/dL Total Bilirubin 0.4 (0.2-1.3) mg/dL AST 21 (17-59) U/L ALT 24 (4-49) U/L Alkaline Phosphatase 124 (38-126) U/L Troponin I (0.000-0.034) ng/mL NT-Pro-B Natriuret Pep 3390 pg/mL Total Protein 6.8 (6.3-8.2) g/dL Albumin 3.8 (3.5-5.0) g/dL 03/31/23 Range/Units 20:02 WBC (3.8-10.6) k/uL RBC (4.30-5.90) m/uL Hgb (13.0-17.5) gm/dL Hct (39.0-53.0) % MCV (80.0-100.0) fL MCH (25.0-35.0) pg MCHC (31.0-37.0) g/dL RDW (11.5-15.5) % Plt Count (150-450) k/uL MPV Neutrophils % % Lymphocytes % % Monocytes % % Eosinophils % % Basophils % % Neutrophils # (1.3-7.7) k/uL Lymphocytes # (1.0-4.8) k/uL Monocytes # (0-1.0) k/uL Eosinophils # (0-0.7) k/uL Basophils # (0-0.2) k/uL PT (10.0-12.5) sec INR (<1.2) APTT (22.0-30.0) sec Sodium (137-145) mmol/L Potassium (3.5-5.1) mmol/L Chloride (98-107) mmol/L Carbon Dioxide (22-30) mmol/L Anion Gap mmol/L BUN (9-20) mg/dL Creatinine (0.66-1.25) mg/dL Est GFR (CKD-EPI)AfAm (>60 ml/min/1.73 sqM) Est GFR (CKD-EPI)NonAf (>60 ml/min/1.73 sqM) Glucose (74-99) mg/dL Calcium (8.4-10.2) mg/dL Magnesium (1.6-2.3) mg/dL Total Bilirubin (0.2-1.3) mg/dL AST (17-59) U/L ALT (4-49) U/L Alkaline Phosphatase (38-126) U/L Troponin I 0.024 (0.000-0.034) ng/mL NT-Pro-B Natriuret Pep pg/mL Total Protein (6.3-8.2) g/dL Albumin (3.5-5.0) g/dL - Radiology Data Chest x-ray: Chronic changes without evidence for acute pulmonary disease. Disposition Clinical Impression: Nausea, Shakiness Disposition: HOME SELF-CARE Condition: Stable Instructions (If sedation given, give patient instructions): Acute Nausea and Vomiting (ED) Additional Instructions: Return to the ER immediately should you develop persistent vomiting, any significant pain, a fever, shortness of breath, feeling dizzy or faint, or new or worsening symptoms. Follow up closely with your primary care provider. Is patient prescribed a controlled substance at d/c from ED?: No Referrals: Simon Bautista MD [Primary Care Provider] - 1-2 days Time of Disposition: 22:41
[2023-03-31 19:56] VITALS: TEMP 99.3
[2023-03-31] MEDS ORDERED: SODIUM CHLORIDE 0.9% 500 ML 500 ML IV ONE (20:14)
[2023-03-31] MEDS ORDERED: ONDANSETRON 4 MG/2 ML VIAL IVP STA (20:14)
[2023-03-31 20:16] LABS: Basophils % (A) 0 %; Eosinophils # (A) 0.3 k/uL (0-0.7); Eosinophils % (A) 4 %; HGB 10.2 gm/dL (13.0-17.5); Lymphocytes % (A) 10 %; MCH 29.8 pg (25.0-35.0); MCV 90.2 fL (80.0-100.0); Mean Platelet Volume 8.1; Monocytes # (A) 0.4 k/uL (0-1.0); Monocytes % (A) 4 %; Neutrophils # (A) 7.8 k/uL (1.3-7.7); Neutrophils % (A) 80 %; Platelet Count 199 k/uL (150-450); RBC 3.44 m/uL (4.30-5.90); WBC 9.8 k/uL (3.8-10.6)
[2023-03-31] MEDS ORDERED: LORazepam 2 MG/ML INJ IV STA (20:18)
[2023-03-31 20:35] LABS: ALT 24 U/L (4-49); AST 21 U/L (17-59); African American GFR (CKD) 63 (>60 ml/min/1.73 sqM); Albumin 3.8 g/dL (3.5-5.0); Alkaline Phosphatase 124 U/L (38-126); Anion Gap 14 mmol/L; Blood Urea Nitrogen 77 mg/dL (9-20); Calcium 9.1 mg/dL (8.4-10.2); Carbon Dioxide 25 mmol/L (22-30); Chloride 101 mmol/L (98-107); Glucose 257 mg/dL (74-99); Magnesium 2.1 mg/dL (1.6-2.3); Non-African American GFR(CKD) 55 (>60 ml/min/1.73 sqM); Potassium 4.2 mmol/L (3.5-5.1); Sodium 140 mmol/L (137-145); Total Bilirubin 0.4 mg/dL (0.2-1.3); Total Protein 6.8 g/dL (6.3-8.2)
[2023-03-31 20:37] LABS: Partial Thromboplastin Time 24.7 sec (22.0-30.0); Prothrombin Time 10.6 sec (10.0-12.5)
[2023-03-31 20:44] LABS: NT-Pro-B-Type Natriuretic Pept 3390 pg/mL
--- NOTE | 2023-03-31 21:14 | XR ---
EXAMINATION TYPE: XR chest 1V portable DATE OF EXAM: 03/31/2023 HISTORY: Shortness of breath. COMPARISON: 02/14/2023 TECHNIQUE: Single view of the chest is submitted. FINDINGS: Demonstrated are scattered senescent parenchymal change. There is no evidence for focal infiltrate. The heart is stable. Hilar and mediastinal structures are within normal limits. Degenerative changes are seen of the dorsal spine. IMPRESSION: 1. Chronic changes without evidence for acute pulmonary disease.
[2023-03-31 23:42] VITALS: BP 125/88; PULSE 95; RESP 18
== END 2023-03-31 23:26 | disposition home or self-care (01) ==
LOC: EC 19:39
DX: R11.0 Nausea (principal); R25.1 Tremor, unspecified; R00.0 Tachycardia, unspecified; I45.10 Unspecified right bundle-branch block; E78.5 Hyperlipidemia, unspecified; I11.0 Hypertensive heart disease with heart failure; I50.9 Heart failure, unspecified; I25.2 Old myocardial infarction; K21.9 Gastro-esophageal reflux disease without esophagitis; M19.90 Unspecified osteoarthritis, unspecified site; F41.9 Anxiety disorder, unspecified; F32.A Depression, unspecified; Z88.8 Allergy status to other drugs, medicaments and biological substances; Z79.02 Long term (current) use of antithrombotics/antiplatelets; Z79.899 Other long term (current) drug therapy; Z79.4 Long term (current) use of insulin; Z79.82 Long term (current) use of aspirin; Z90.49 Acquired absence of other specified parts of digestive tract
CPT/HCPCS: 36415; 93005; 83880; 80053; 83735; 84484; 85025; 85610; 85730; 71045; 99285; 96374; 96375; 96361; J2060; J2405

== ENCOUNTER 2023-04-09 17:01 | Inpatient (IN) | payer OTHER ==
[2023-04-09 18:39] LABS: Basophils % (A) 0 %; Eosinophils # (A) 0.1 k/uL (0-0.7); Eosinophils % (A) 2 %; HCT 21.8 % (39.0-53.0); Hypochromasia Slight; Lymphocytes # (A) 1.1 k/uL (1.0-4.8); Lymphocytes % (A) 12 %; MCH 28.6 pg (25.0-35.0); MCHC 32.2 g/dL (31.0-37.0); MCV 88.9 fL (80.0-100.0); Mean Platelet Volume 8.3; Monocytes # (A) 0.4 k/uL (0-1.0); Monocytes % (A) 5 %; Neutrophils # (A) 6.8 k/uL (1.3-7.7); Neutrophils % (A) 79 %; Platelet Count 317 k/uL (150-450); RBC 2.45 m/uL (4.30-5.90); WBC 8.7 k/uL (3.8-10.6)
[2023-04-09 18:55] LABS: ALT 33 U/L (4-49); AST 30 U/L (17-59); African American GFR (CKD) 64 (>60 ml/min/1.73 sqM); Albumin 3.3 g/dL (3.5-5.0); Alkaline Phosphatase 98 U/L (38-126); Anion Gap 11 mmol/L; Blood Urea Nitrogen 81 mg/dL (9-20); Calcium 8.8 mg/dL (8.4-10.2); Carbon Dioxide 26 mmol/L (22-30); Chloride 103 mmol/L (98-107); Glucose 161 mg/dL (74-99); Non-African American GFR(CKD) 56 (>60 ml/min/1.73 sqM); Sodium 140 mmol/L (137-145); Total Bilirubin 0.3 mg/dL (0.2-1.3); Total Protein 6.5 g/dL (6.3-8.2)
[2023-04-09 18:57] LABS: Partial Thromboplastin Time 26.4 sec (22.0-30.0); Prothrombin Time 10.8 sec (10.0-12.5)
[2023-04-09 19:02] LABS: NT-Pro-B-Type Natriuretic Pept 3720 pg/mL
[2023-04-09] MEDS ORDERED: FUROSEMIDE 10 MG/ML 4 ML VIAL IV STA (19:33)
--- NOTE | 2023-04-09 19:36 | ED ---
General Adult HPI - General Chief complaint: Recheck/Abnormal Lab/Rx Stated complaint: Abnormal Labs Source: EMS Mode of arrival: EMS Limitations: no limitations - History of Present Illness Initial comments: 67-year-old male coming over from [facility] for low hemoglobin. Patient had laboratory studies done this morning at the facility and the hemoglobin was 6.3. Patient denies history of anemia or previous transfusions. He does have a wound on his left lower extremity. States that he has a tendency to pick at it and it was bleeding the other day. He states that he had a puddle of blood next to his bed and in the bathroom. He states that staff was very angry with him forgetting blood all over the place. They finally were able to control the bleeding. He denies having any black or bloody stools. No epistaxis. He does take Plavix. He denies any lightheadedness or dizziness. Does admit to some nausea. No hematemesis. No other alleviating, precipitating or modifying factors - Related Data Home Medications Medication Instructions Recorded Confirmed Aspirin EC [Ecotrin Low Dose] 81 mg PO DAILY@0800 01/12/19 04/09/23 Atorvastatin [Lipitor] 80 mg PO HS@2100 01/12/19 04/09/23 Clopidogrel Bisulfate [Plavix] 75 mg PO DAILY@0800 07/28/21 04/09/23 Ferrous Sulfate [Iron (65 MG 325 mg PO DAILY@0800 07/28/21 04/09/23 Elemental)] Ipratropium-Albuterol Nebulize 3 ml INHALATION RT-QID@00,06,12,07/28/21 04/09/23 [Duoneb 0.5 mg-3 mg/3 ml Soln] Famotidine [Pepcid] 20 mg PO BID@0800,2000 03/18/22 04/09/23 Topiramate [Topamax] 25 mg PO HS@2100 04/01/22 04/09/23 Acetaminophen [Tylenol] 650 mg PO QID PRN 04/22/22 04/09/23 Albuterol Sulfate [Albuterol 1 - 2 puff INHALATION RT-Q4H PRN 04/22/22 04/09/23 Sulfate Hfa] Dicyclomine 10mg/5ml Oral Solution 10 mg PO TID@0800,1200,1700 07/06/22 04/09/23 Isosorbide Mononitrate ER [Imdur] 30 mg PO DAILY@0800 07/06/22 04/09/23 Nitroglycerin Sl Tabs [Nitrostat] 0.4 mg SL Q5M PRN 10/20/22 04/09/23 Metoprolol Tartrate [Lopressor] 12.5 mg PO BID@0800,199912/08/22 04/09/23 Sucralfate [Sucralfate Oral Susp] 1 gm PO ACHS@07,11,1630,212912/08/22 04/09/23 Furosemide [Lasix] 40 mg PO BID@0600,1400 03/31/23 04/09/23 HYDROcodone/APAP 5-325MG [[place] 1 tab PO Q6HR PRN 03/31/23 04/09/23 5-325] INSULIN ASPART (NovoLOG) [NovoLOG See Protocol SQ 03/31/23 04/09/23 (formulary)] ACHS@07,11,1629,2129 Insulin Detemir (Levemir) [Levemir] 40 unit SQ HS@212903/31/23 04/09/23 Sivakumar Packet 1 packet PO BID@0800,1700 03/31/23 04/09/23 Lactobacillus Acidophilus 1 cap PO BID@0800,1700 03/31/23 04/09/23 [Acidophilus Probiotic] Levofloxacin [Levaquin] 500 mg PO DAILY@0800 03/31/23 04/09/23 Magic Butt Paste 1 applic TOPICAL BID 03/31/23 04/09/23 Magnesium Hydroxide [Milk of 7,200 mg PO DAILY PRN 03/31/23 04/09/23 Magnesia Concentrate] Na Phos,M-B/Na Phos,Di-Ba [Fleet 133 ml RECTAL DAILY PRN 03/31/23 04/09/23 Adult] bisacodyL [Dulcolax] 10 mg RECTAL DAILY PRN 03/31/23 04/09/23 ALPRAZolam [Xanax] 0.25 mg PO Q8H PRN 04/09/23 04/09/23 Previous Rx's Medication Instructions Recorded Lactulose [Cephulac] 20 gm PO DAILY@0800 PRN #0 02/17/23 Allergies Allergy/AdvReac Type Severity Reaction Status Date / Time furosemide [From Lasix] AdvReac Unknown Verified 04/09/23 20:49 sacubitril [From Entresto] AdvReac made him Verified 04/09/23 20:49 hypotensive valsartan [From Entresto] AdvReac made him Verified 04/09/23 20:49 hypotensive Review of Systems ROS Statement: Those systems with pertinent positive or pertinent negative responses have been documented in the HPI. ROS Other: All systems not noted in ROS Statement are negative. Past Medical History Past Medical History: Cancer, Heart Failure, COPD, Dementia, Diabetes Mellitus, GERD/Reflux, Hearing Disorder / Deafness, Hyperlipidemia, Hypertension, Myocardial Infarction ([place]), Osteoarthritis (OA), Pneumonia Additional Past Medical History / Comment(s): Brain CA (30 years ago) in remission. 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 Mother Additional Family Medical History / Comment(s): Mother had a bad heart. General Exam Limitations: no limitations General appearance: alert, in no apparent distress Head exam: Present: atraumatic, normocephalic, normal inspection Eye exam: Present: normal appearance ENT exam: Present: normal exam, mucous membranes moist Respiratory exam: Present: normal lung sounds bilaterally. Absent: respiratory distress, wheezes, rales, rhonchi, stridor Cardiovascular Exam: Present: regular rate, normal rhythm, normal heart sounds. Absent: systolic murmur, diastolic murmur, rubs, gallop, clicks GI/Abdominal exam: Present: soft, normal bowel sounds. Absent: distended, tenderness, guarding, rebound, rigid Rectal exam: Present: heme (+) stool. Absent: black stool, bloody stool Extremities exam: Present: other (wound vac on left leg, lateral foot. no active bleeding or drainage) Course Vital Signs 04/09/23 04/09/23 04/09/23 17:05 17:13 17:30 Temperature Pulse Rate 88 91 Respiratory 18 Rate Blood Pressure 135/63 99/79 121/68 O2 Sat by Pulse 100 Oximetry 04/09/23 04/09/23 04/09/23 18:00 18:30 19:00 Temperature Pulse Rate 92 84 89 Respiratory Rate Blood Pressure 116/54 115/59 118/54 O2 Sat by Pulse Oximetry 04/09/23 04/09/23 04/09/23 19:30 20:00 20:30 Temperature Pulse Rate 95 98 89 Respiratory 20 Rate Blood Pressure 121/63 139/71 O2 Sat by Pulse 96 Oximetry 04/09/23 04/09/23 04/09/23 20:50 21:00 21:10 Temperature Pulse Rate 96 92 91 Respiratory Rate Blood Pressure O2 Sat by Pulse Oximetry 04/09/23 04/09/23 04/09/23 21:20 21:30 21:45 Temperature 97.9 F 98.1 F Pulse Rate 89 92 96 Respiratory 20 Rate Blood Pressure 127/70 132/72 O2 Sat by Pulse 96 100 Oximetry 04/09/23 22:00 Temperature 98.3 F Pulse Rate 86 Respiratory 18 Rate Blood Pressure 138/77 O2 Sat by Pulse 96 Oximetry Medical Decision Making - Medical Decision Making Was pt. sent in by a medical professional or institution (, PA, SPINE SURGEON, urgent care, hospital, or [place] health care facility...) When possible be specific @ -[facility] Did you speak to anyone other than the patient for history (EMS, parent, family, police, friend...)? What history was obtained from this source @ -ems Did you review nursing and triage notes (agree or disagree)? Why? @ -I reviewed and agree with nursing and triage notes Were old charts reviewed (outside hosp., previous admission, EMS record, old EKG, old radiological studies, urgent care reports/EKG's, [place] health care facility records)? Report findings @ -Review patient's hospitalization from February 2023 Differential Diagnosis (chest pain, altered mental status, abdominal pain women, abdominal pain men, vaginal bleeding, weakness, fever, dyspnea, syncope, headache, dizziness, GI bleed, back pain, seizure, CVA, palpatations, mental health, musculoskeletal)? @ -Differential Esophageal varices, aortoenteric fistula, Lesly-Saab, gastritis, peptic ulcer disease, diverticulosis, inflammatory bowel disease, hemorrhoids, fissure, colitis, malignancy, Meckels diverticulum, this is not meant to be an all- inclusive list. EKG interpreted by me (3pts min.). @ -Not done X-rays interpreted by me (1pt min.). @ -None done CT interpreted by me (1pt min.). @ -None done U/S interpreted by me (1pt. min.). @ -None done What testing was considered but not performed or refused? (CT, X-rays, U/S, labs)? Why? @ -None What meds were considered but not given or refused? Why? @ -None Did you discuss the management of the patient with other professionals (professionals i.e. , PA, SPINE SURGEON, lab, RT, psych nurse, sr. social media & mobile manager, type soldering machine tender, teacher, benefits officer, caser)? Give summary @ -I spoke with Dr. Steen who was agreeable to being on consult for the patient Was smoking cessation discussed for >3mins.? @ -No Was critical care preformed (if so, how long)? @ 40 minutes for transfusion of blood products Were there social determinants of health that impacted care today? How? (Homelessness, low income, unemployed, alcoholism, drug addiction, transportation, low edu. Level, literacy, decrease access to med. care, longterm, rehab)? @ -Resides at a nursing facility Was there de-escalation of care discussed even if they declined (Discuss DNR or withdrawal of care, Hospice)? DNR status @ -No What co-morbidities impacted this encounter? (DM, HTN, Smoking, COPD, CAD, Cancer, CVA, ARF, Chemo, Hep., AIDS, mental health diagnosis, sleep apnea, morbid obesity)? @ -Osteomyelitis Was patient admitted / discharged? Hospital course, mention meds given and route, prescriptions, significant lab abnormalities, going to OR and other pertinent info. @ -Admitted. Upon arrival patient placed into room 27. Thorough history and physical exam was performed. IV access was established and laboratory studies were conducted. Hemoglobin is 7. Patient is adamant that he had acute blood loss from his wound however I did check an occult for completeness. He does have brown stool which comes back positive for occult blood. I did discuss this with Dr. Steen. He was agreeable to consulting on the patient. Patient will receive one unit of blood with 40 mg of Lasix to follow. Spoke with Bhavana from [facility] who agreed to admit the patient Undiagnosed new problem with uncertain prognosis? @ -yes Drug Therapy requiring intensive monitoring for toxicity (Heparin, Nitro, Insulin, Cardizem)? @ -No Were any procedures done? @ -No Diagnosis/symptom? @ -Acute anemia, occult positive, bleeding left lower extremity wound Acute, or Chronic, or Acute on Chronic? @ -Acute Uncomplicated (without systemic symptoms) or Complicated (systemic symptoms)? @ -Complicated Side effects of treatment? @ -No Exacerbation, Progression, or Severe Exacerbation? @ -No Poses a threat to life or bodily function? How? (Chest pain, [place], [place], pneumonia, PE, COPD, DKA, ARF, appy, cholecystitis, CVA, Diverticulitis, Homicidal, Suicidal, threat to staff... and all critical care pts) @ -No - Lab Data Result diagrams: 04/09/23 18:19 04/09/23 18:19 Lab Results 04/09/23 04/09/23 04/09/23 Range/Units 18:19 18:19 18:19 WBC 8.7 (3.8-10.6) k/uL RBC 2.45 L (4.30-5.90) m/uL Hgb 7.0 L D (13.0-17.5) gm/dL Hct 21.8 L (39.0-53.0) % MCV 88.9 (80.0-100.0) fL MCH 28.6 (25.0-35.0) pg MCHC 32.2 (31.0-37.0) g/dL RDW 15.0 (11.5-15.5) % Plt Count 317 (150-450) k/uL MPV 8.3 Neutrophils % 79 % Lymphocytes % 12 % Monocytes % 5 % Eosinophils % 2 % Basophils % 0 % Neutrophils # 6.8 (1.3-7.7) k/uL Lymphocytes # 1.1 (1.0-4.8) k/uL Monocytes # 0.4 (0-1.0) k/uL Eosinophils # 0.1 (0-0.7) k/uL Basophils # 0.0 (0-0.2) k/uL Hypochromasia Slight PT (10.0-12.5) sec INR (<1.2) APTT (22.0-30.0) sec Sodium 140 (137-145) mmol/L Potassium 4.0 (3.5-5.1) mmol/L Chloride 103 (98-107) mmol/L Carbon Dioxide 26 (22-30) mmol/L Anion Gap 11 mmol/L BUN 81 H (9-20) mg/dL Creatinine 1.34 H (0.66-1.25) mg/dL Est GFR (CKD-EPI)AfAm 64 (>60 ml/min/1.73 sqM) Est GFR (CKD-EPI)NonAf 56 (>60 ml/min/1.73 sqM) Glucose 161 H (74-99) mg/dL Calcium 8.8 (8.4-10.2) mg/dL Total Bilirubin 0.3 (0.2-1.3) mg/dL AST 30 (17-59) U/L ALT 33 (4-49) U/L Alkaline Phosphatase 98 (38-126) U/L NT-Pro-B Natriuret Pep 3720 pg/mL Total Protein 6.5 (6.3-8.2) g/dL Albumin 3.3 L (3.5-5.0) g/dL Stool Occult Blood Positive (Negative) Blood Type Blood Type Recheck Bld Type Recheck Status Antibody Screen Crossmatch Spec Expiration Date 04/09/23 04/09/23 Range/Units 18:19 19:41 WBC (3.8-10.6) k/uL RBC (4.30-5.90) m/uL Hgb (13.0-17.5) gm/dL Hct (39.0-53.0) % MCV (80.0-100.0) fL MCH (25.0-35.0) pg MCHC (31.0-37.0) g/dL RDW (11.5-15.5) % Plt Count (150-450) k/uL MPV Neutrophils % % Lymphocytes % % Monocytes % % Eosinophils % % Basophils % % Neutrophils # (1.3-7.7) k/uL Lymphocytes # (1.0-4.8) k/uL Monocytes # (0-1.0) k/uL Eosinophils # (0-0.7) k/uL Basophils # (0-0.2) k/uL Hypochromasia PT 10.8 (10.0-12.5) sec INR 1.0 (<1.2) APTT 26.4 (22.0-30.0) sec Sodium (137-145) mmol/L Potassium (3.5-5.1) mmol/L Chloride (98-107) mmol/L Carbon Dioxide (22-30) mmol/L Anion Gap mmol/L BUN (9-20) mg/dL Creatinine (0.66-1.25) mg/dL Est GFR (CKD-EPI)AfAm (>60 ml/min/1.73 sqM) Est GFR (CKD-EPI)NonAf (>60 ml/min/1.73 sqM) Glucose (74-99) mg/dL Calcium (8.4-10.2) mg/dL Total Bilirubin (0.2-1.3) mg/dL AST (17-59) U/L ALT (4-49) U/L Alkaline Phosphatase (38-126) U/L NT-Pro-B Natriuret Pep pg/mL Total Protein (6.3-8.2) g/dL Albumin (3.5-5.0) g/dL Stool Occult Blood (Negative) Blood Type O Positive Blood Type Recheck O Pos Bld Type Recheck Status No Antibody Screen NEGATIVE Crossmatch See Detail Spec Expiration Date 04/12/20232340 Disposition Clinical Impression: Wound of right foot, Anemia, Occult blood positive stool Disposition: ADMITTED IP TO THIS [facility] Condition: Stable Is patient prescribed a controlled substance at d/c from ED?: No Time of Disposition: 20:24 Decision to Admit Reason: Admit from EC Decision Date: 04/09/23 Decision Time: 20:24
[2023-04-09] MEDS ORDERED: NALOXONE 0.4 MG/ML 1 ML VIAL IV PRN (20:28)
[2023-04-09] MEDS ORDERED: bisacodyL 10 MG SUPP RECTAL PRN (23:46)
[2023-04-09] MEDS ORDERED: ALPRAZolam 0.25 MG TAB PO PRN (23:46)
[2023-04-09] MEDS ORDERED: ALBUTEROL NEBULIZED 2.5 MG/3 ML INHALATION PRN (23:46)
[2023-04-09] MEDS ORDERED: NITROGLYCERIN SL TABS 0.4 MG TAB SUBLINGUAL PRN (23:46)
[2023-04-10 02:37] LABS: Basophils % (A) 0 %; Eosinophils # (A) 0.2 k/uL (0-0.7); Eosinophils % (A) 3 %; HCT 23.1 % (39.0-53.0); HGB 7.4 gm/dL (13.0-17.5); Hypochromasia Slight; Lymphocytes # (A) 1.5 k/uL (1.0-4.8); Lymphocytes % (A) 18 %; MCH 28.6 pg (25.0-35.0); MCV 89.4 fL (80.0-100.0); Mean Platelet Volume 7.7; Monocytes # (A) 0.5 k/uL (0-1.0); Monocytes % (A) 6 %; Neutrophils # (A) 5.9 k/uL (1.3-7.7); Neutrophils % (A) 72 %; Platelet Count 262 k/uL (150-450); RBC 2.58 m/uL (4.30-5.90); RDW 14.9 % (11.5-15.5); WBC 8.2 k/uL (3.8-10.6)
[2023-04-10 07:20] LABS: Glucose,Whole Blood 209 mg/dL (70-110)
[2023-04-10] MEDS: LACTOBACILLUS ACIDOPHILUS/PECT 1 EACH CAPSULE PO SCH ×2 (07:43→16:59)
[2023-04-10] MEDS: SUCRALFATE 1 GM TAB PO SCH ×4 (07:43→21:54)
[2023-04-10] MEDS: ISOSORBIDE MONONITRATE ER 30 MG TAB.ER.24H PO SCH (07:44)
[2023-04-10] MEDS: METOPROLOL TARTRATE 12.5 MG TAB PO SCH ×2 (07:44→21:54)
[2023-04-10] MEDS: DICYCLOMINE 10 MG CAP PO SCH ×3 (07:44→17:00)
[2023-04-10] MEDS: FAMOTIDINE 20 MG TAB PO SCH ×2 (07:44→21:54)
[2023-04-10] MEDS: FERROUS SULFATE 325 MG TAB PO SCH (07:44)
[2023-04-10] MEDS: IPRATROPIUM-ALBUTEROL 3 ML NEB INHALATION SCH ×4 (07:54→18:14)
[2023-04-10] MEDS ORDERED: IPRATROPIUM-ALBUTEROL 3 ML NEB INHALATION SCH (08:00)
[2023-04-10] MEDS ORDERED: LACTULOSE 20 GM/30 ML CUP PO PRN (08:00)
[2023-04-10] MEDS ORDERED: NON FORMULARY DRUG (Juven Packet 1 PACKET Packet) PO SCH (08:00)
[2023-04-10] MEDS: HYDROcodone/APAP 5-325MG 1 EACH TAB PO PRN ×2 (09:01→21:54)
[2023-04-10 10:05] LABS: HGB 7.5 g/dL (13.0-17.0); MCH 28.4 pg (27.0-32.0); MCHC 31.3 g/dL (32.0-37.0); MCV 90.9 FL (80.0-97.0); NRBC Per 100 WBC 0 X 10*3/uL (0.00-0.01); Platelet Count 289 X 10*3/uL (140-440); RBC 2.64 X 10*6/uL (4.40-5.60); RDW 14.9 % (11.5-14.5); WBC 8.81 X 10*3/uL (4.50-10.00)
[2023-04-10 10:06] LABS: Basophils # (A) 0.02 X 10*3/uL (0.00-0.10); Basophils % (A) 0.2 %; Eosinophils # (A) 0.27 X 10*3/uL (0.04-0.35); Eosinophils % (A) 3.1 %; Lymphocytes # (A) 1.42 X 10*3/uL (0.90-5.00); Lymphocytes % (A) 16.1 %; Monocytes # (A) 0.73 X 10*3/uL (0.20-1.00); Monocytes % (A) 8.3 %; Neutrophils % (A) 71.5 %
[2023-04-10 10:07] LABS: BUN/Creat Ratio 55.83 Ratio (12.00-20.00); Calcium 8.8 mg/dL (8.7-10.3); Carbon Dioxide 25.2 mmol/L (21.6-31.8); Chloride 106 mmol/L (96-109); Glucose 189 mg/dL (70-110); Magnesium 2.1 mg/dL (1.5-2.4); Potassium 3.6 mmol/L (3.5-5.5); Sodium 142 mmol/L (135-145)
[2023-04-10] MEDS: PANTOPRAZOLE 40 MG/10 ML VIAL IVP SCH ×2 (10:39→21:54)
[2023-04-10] MEDS ORDERED: LEVOFLOXACIN 500 MG TAB PO SCH (11:00)
[2023-04-10 12:10] LABS: Glucose,Whole Blood 251 mg/dL (70-110)
--- NOTE | 2023-04-10 13:47 | P.GSCN ---
History of Present Illness Consult date: 04/10/23 History of present illness: 67-year-old male who presents with anemia. He was originally found to have a hemoglobin of 6.3 at his home facilty and was transfered to [facility] for further management. Patient denies history of anemia or previous transfusions. He does have a wound on his left lower extremity. States that he has a tendency to pick at it and it was bleeding the other day. He denies having any black or bloody stools. No epistaxis. He does take Plavix. He denies any lightheadedness or dizziness. Does admit to some nausea. No hematemesis. Review of Systems Negative Except for as stated above Past Medical History Past Medical History: Cancer, Heart Failure, COPD, Dementia, Diabetes Mellitus, GERD/Reflux, Hearing Disorder / Deafness, Hyperlipidemia, Hypertension, Praful cardial Infarction ([place]), Osteoarthritis (OA), Pneumonia Additional Past Medical History / Comment(s): Brain CA (30 years ago) in remission. 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 Mother Additional Family Medical History / Comment(s): Mother had a bad heart. Medications and Allergies Home Medications Medication Instructions Recorded Confirmed Type Aspirin EC [Ecotrin Low Dose] 81 mg PO DAILY@0800 01/12/19 04/09/23 History Atorvastatin [Lipitor] 80 mg PO HS@2100 01/12/19 04/09/23 History Clopidogrel Bisulfate [Plavix] 75 mg PO DAILY@0800 07/28/21 04/09/23 History Ferrous Sulfate [Iron (65 MG 325 mg PO DAILY@0800 07/28/21 04/09/23 History Elemental)] Ipratropium-Albuterol Nebulize 3 ml INHALATION RT-QID@00,06,12,18 07/28/21 04/09/23 History [Duoneb 0.5 mg-3 mg/3 ml Soln] Famotidine [Pepcid] 20 mg PO BID@0800,199903/18/22 04/09/23 History Topiramate [Topamax] 25 mg PO HS@2100 04/01/22 04/09/23 History Acetaminophen [Tylenol] 650 mg PO QID PRN 04/22/22 04/09/23 History Albuterol Sulfate [Albuterol 1 - 2 puff INHALATION RT-Q4H PRN 04/22/22 04/09/23 History Sulfate Hfa] Dicyclomine 10mg/5ml Oral Solution 10 mg PO TID@0800,1200,1700 07/06/22 04/09/23 History Isosorbide Mononitrate ER [Imdur] 30 mg PO DAILY@0800 07/06/22 04/09/23 History Nitroglycerin Sl Tabs [Nitrostat] 0.4 mg SL Q5M PRN 10/20/22 04/09/23 History Metoprolol Tartrate [Lopressor] 12.5 mg PO BID@0800,199912/08/22 04/09/23 History Sucralfate [Sucralfate Oral Susp] 1 gm PO ACHS@07,11,1630,212912/08/22 04/09/23 History Lactulose [Cephulac] 20 gm PO DAILY@0800 PRN #0 02/17/23 04/09/23 Rx Furosemide [Lasix] 40 mg PO BID@0600,1400 03/31/23 04/09/23 History HYDROcodone/APAP 5-325MG [[place] 1 tab PO Q6HR PRN 03/31/23 04/09/23 History 5-325] INSULIN ASPART (NovoLOG) [NovoLOG See Protocol SQ 03/31/23 04/09/23 History (formulary)] ACHS@07,11,1630,0 Insulin Detemir (Levemir) [Levemir] 40 unit SQ HS@21303/31/23 04/09/23 History Sivakumar Packet 1 packet PO BID@0800,1700 03/31/23 04/09/23 History Lactobacillus Acidophilus 1 cap PO BID@0800,1700 03/31/23 04/09/23 History [Acidophilus Probiotic] Levofloxacin [Levaquin] 500 mg PO DAILY@0800 03/31/23 04/09/23 History Magic Butt Paste 1 applic TOPICAL BID 03/31/23 04/09/23 History Magnesium Hydroxide [Milk of 7,200 mg PO DAILY PRN 03/31/23 04/09/23 History Magnesia Concentrate] Na Phos,M-B/Na Phos,Di-Ba [Fleet 133 ml RECTAL DAILY PRN 03/31/23 04/09/23 History Adult] bisacodyL [Dulcolax] 10 mg RECTAL DAILY PRN 03/31/23 04/09/23 History ALPRAZolam [Xanax] 0.25 mg PO Q8H PRN 04/09/23 04/09/23 History Allergies Allergy/AdvReac Type Severity Reaction Status Date / Time furosemide [From Lasix] AdvReac Unknown Verified 04/09/23 20:49 sacubitril [From Entresto] AdvReac made him Verified 04/09/23 20:49 hypotensive valsartan [From Entresto] AdvReac made him Verified 04/09/23 20:49 hypotensive Surgical - Exam Vital Signs Pulse Resp BP Pulse Ox 88 18 135/63 100 04/09/23 17:05 04/09/23 17:05 04/09/23 17:05 04/09/23 17:05 Gen: AxO, NAD Pulm: non-labored respirations Abd: soft, non-tender, minimally distended, no guarding/rebound/rigidity Extrem: no edema seen; left 5th toe amputation site C/D/I no bleeding seen, wound vac intact with minimal serosang drainage Results - Labs 04/10/23 04:46 04/10/23 04:46 Abnormal Lab Results - Last 24 Hours (Table) 04/09/23 04/09/23 04/09/23 Range/Units 18:19 18:19 19:41 RBC 2.45 L (4.30-5.90) m/uL Hgb 7.0 L D (13.0-17.5) gm/dL Hct 21.8 L (39.0-53.0) % MCHC (32.0-37.0) g/dL RDW (11.5-14.5) % Immature Gran # (0.00-0.04) X 10*3/uL BUN 81 H (9-20) mg/dL Creatinine 1.34 H (0.66-1.25) mg/dL BUN/Creatinine Ratio (12.00-20.00) Ratio Glucose 161 H (74-99) mg/dL POC Glucose (mg/dL) (70-110) mg/dL Albumin 3.3 L (3.5-5.0) g/dL Crossmatch See Detail 04/10/23 04/10/23 04/10/23 Range/Units 02:11 04:46 04:46 RBC 2.58 L 2.64 L (4.30-5.90) m/uL Hgb 7.4 L 7.5 L (13.0-17.5) gm/dL Hct 23.1 L 24.0 L (39.0-53.0) % MCHC 31.3 L (32.0-37.0) g/dL RDW 14.9 H (11.5-14.5) % Immature Gran # 0.07 H (0.00-0.04) X 10*3/uL BUN 67.0 H (9-20) mg/dL Creatinine (0.66-1.25) mg/dL BUN/Creatinine Ratio 55.83 H (12.00-20.00) Ratio Glucose 189 H (74-99) mg/dL POC Glucose (mg/dL) (70-110) mg/dL Albumin (3.5-5.0) g/dL Crossmatch 04/10/23 04/10/23 Range/Units 07:19 12:02 RBC (4.30-5.90) m/uL Hgb (13.0-17.5) gm/dL Hct (39.0-53.0) % MCHC (32.0-37.0) g/dL RDW (11.5-14.5) % Immature Gran # (0.00-0.04) X 10*3/uL BUN (9-20) mg/dL Creatinine (0.66-1.25) mg/dL BUN/Creatinine Ratio (12.00-20.00) Ratio Glucose (74-99) mg/dL POC Glucose (mg/dL) 209 H 251 H (70-110) mg/dL Albumin (3.5-5.0) g/dL Crossmatch Diabetes panel 04/09/23 04/10/23 Range/Units 18:19 04:46 Sodium 140 142 (137-145) mmol/L Potassium 4.0 3.6 (3.5-5.1) mmol/L Chloride 103 106 (98-107) mmol/L Carbon Dioxide 26 25.2 (22-30) mmol/L BUN 81 H 67.0 H (9-20) mg/dL Creatinine 1.34 H 1.2 (0.66-1.25) mg/dL Glucose 161 H 189 H (74-99) mg/dL Calcium 8.8 8.8 (8.4-10.2) mg/dL AST 30 (17-59) U/L ALT 33 (4-49) U/L Alkaline Phosphatase 98 (38-126) U/L Total Protein 6.5 (6.3-8.2) g/dL Albumin 3.3 L (3.5-5.0) g/dL Calcium panel 04/09/23 04/10/23 Range/Units 18:19 04:46 Calcium 8.8 8.8 (8.4-10.2) mg/dL Albumin 3.3 L (3.5-5.0) g/dL Pituitary panel 04/09/23 04/10/23 Range/Units 18:19 04:46 Sodium 140 142 (137-145) mmol/L Potassium 4.0 3.6 (3.5-5.1) mmol/L Chloride 103 106 (98-107) mmol/L Carbon Dioxide 26 25.2 (22-30) mmol/L BUN 81 H 67.0 H (9-20) mg/dL Creatinine 1.34 H 1.2 (0.66-1.25) mg/dL Glucose 161 H 189 H (74-99) mg/dL Calcium 8.8 8.8 (8.4-10.2) mg/dL Adrenal panel 04/09/23 04/10/23 Range/Units 18:19 04:46 Sodium 140 142 (137-145) mmol/L Potassium 4.0 3.6 (3.5-5.1) mmol/L Chloride 103 106 (98-107) mmol/L Carbon Dioxide 26 25.2 (22-30) mmol/L BUN 81 H 67.0 H (9-20) mg/dL Creatinine 1.34 H 1.2 (0.66-1.25) mg/dL Glucose 161 H 189 H (74-99) mg/dL Calcium 8.8 8.8 (8.4-10.2) mg/dL Total Bilirubin 0.3 (0.2-1.3) mg/dL AST 30 (17-59) U/L ALT 33 (4-49) U/L Alkaline Phosphatase 98 (38-126) U/L Total Protein 6.5 (6.3-8.2) g/dL Albumin 3.3 L (3.5-5.0) g/dL Assessment and Plan Assessment: Patient is a 67 year old male who presents with anemia Plan: -No current signs or symptoms of gastrointestinal bleeding -Diet as tolerated -Transfusion as needed per primary -Continue LLE wound vac -No acute surgical intervention; will reconsider endoscopy if further evidence of gastrointestinal bleeding develops. Anemia likely from LLE 5th digit amputation site Heri Trotter MD General Surgery
--- NOTE | 2023-04-10 14:07 | P.HPIM ---
History of Present Illness H&P Date: 04/10/23 History of present illness;A 67-year-old gentleman with past medical history si gnificant for hypertension, hyperlipidemia, diabetes, CAD, cardiomyopathy with an ejection fraction of 25-30% who was sent to ER from [facility] for abnormal labs. Patient had blood work done at a facility and was found to have a low hemoglobin level of 6.3. Patient denies any complaint of any blood in the stool. There was no complain of any nausea or vomiting or any hematemesis. Denies any abdominal pain. Patient has a wound on his left leg with wound VAC that he thinks he picked and was bleeding. Denies any chest pain or shortness of breath. He was no complain of lightheadedness or dizziness. Because of these abnormal labs, patient was sent to the ER Initial lab work done in the ER showed WBC 8.7, hemoglobin 7, platelet count 317, sodium 140, potassium 4, BUN 81, creatinine 1.34, glucose 161, FOBT positive Patient admitted to internal medicine service REVIEW OF SYSTEMS: CONSTITUTIONAL: No fever, no malaise, no fatigue. HEENT: No recent visual problems or hearing problems. Denied any sore throat. CARDIOVASCULAR: No chest pain, orthopnea, PND, no palpitations, no syncope. PULMONARY: No shortness of breath, no cough, no hemoptysis. GASTROINTESTINAL: As mentioned above NEUROLOGICAL: As mentioned above HEMATOLOGICAL: Denies any bleeding or petechiae. GENITOURINARY: Denies any burning micturition, frequency, or urgency. MUSCULOSKELETAL/RHEUMATOLOGICAL: Denies any joint pain, swelling, or any muscle pain. ENDOCRINE: Denies any polyuria or polydipsia. The rest of the 14-point review of systems is negative. PHYSICAL EXAMINATION: GENERAL: The patient is alert and oriented x3, not in any acute distress. Well developed, well nourished. HEENT: Pupils are round and equally reacting to light. EOMI. No scleral icterus. No conjunctival pallor. Normocephalic, atraumatic. No pharyngeal erythema. No thyromegaly. CARDIOVASCULAR: S1 and S2 present. No murmurs, rubs, or gallops. PULMONARY: Chest is clear to auscultation, no wheezing or crackles. ABDOMEN: Soft, nontender, nondistended, normoactive bowel sounds. No palpable organomegaly. MUSCULOSKELETAL: Left foot wound VAC seen EXTREMITIES: No cyanosis, clubbing, or pedal edema. NEUROLOGICAL: Gross neurological examination did not reveal any focal deficits. SKIN: No rashes. Assessment and plan Acute blood loss anemia FOBT positive History of left foot wound with evidence of osteomyelitis status post amputation of the left fifth toe CAD with known chronic total occlusion of the distal RCA and intermediate disease involving the OM1 PAD with recent PROGRAM WRITER involving the left SFA hypertension hyperlipidemia COPD chronic hypoxic respiratory failure on home O2 Diabetes mellitus Monitor vital signs Monitor CBC Monitor CMP Continue telemetry monitoring Ordered anemia workup FOBT was positive Hold aspirin and Plavix for now Continue IV Protonix Continue Carafate Patient received 1 unit of packed red blood cell in the ER Surgery consulted, no GI coverage at this time Labs and medication were reviewed.. Continue same treatment. Continue with symptomatic treatment. Resume home medication. Monitor labs and vitals. DVT and GI prophylaxis. Further recommendations as per clinical course of the patient Dictation was produced using [employer] dictation software. please excuse any grammatical, word or spelling errors. Past Medical History Past Medical History: Cancer, Heart Failure, COPD, Dementia, Diabetes Mellitus, GERD/Reflux, Hearing Disorder / Deafness, Hyperlipidemia, Hypertension, Myocardial Infarction (NM), Osteoarthritis (OA), Pneumonia Additional Past Medical History / Comment(s): Brain CA (30 years ago) in remission. 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 Mother Additional Family Medical History / Comment(s): Mother had a bad heart. Medications and Allergies Home Medications Medication Instructions Recorded Confirmed Type Aspirin EC [Ecotrin Low Dose] 81 mg PO DAILY@0800 01/12/19 04/09/23 History Atorvastatin [Lipitor] 80 mg PO HS@2100 01/12/19 04/09/23 History Clopidogrel Bisulfate [Plavix] 75 mg PO DAILY@0800 07/28/21 04/09/23 History Ferrous Sulfate [Iron (65 MG 325 mg PO DAILY@0800 07/28/21 04/09/23 History Elemental)] Ipratropium-Albuterol Nebulize 3 ml INHALATION RT-QID@00,06,,07/28/21 04/09/23 History [Duoneb 0.5 mg-3 mg/3 ml Soln] Famotidine [Pepcid] 20 mg PO BID@0800,199903/18/22 04/09/23 History Topiramate [Topamax] 25 mg PO HS@209904/01/22 04/09/23 History Acetaminophen [Tylenol] 650 mg PO QID PRN 04/22/22 04/09/23 History Albuterol Sulfate [Albuterol 1 - 2 puff INHALATION RT-Q4H PRN 04/22/22 04/09/23 History Sulfate Hfa] Dicyclomine 10mg/5ml Oral Solution 10 mg PO TID@0800,1200,1700 07/06/22 04/09/23 History Isosorbide Mononitrate ER [Imdur] 30 mg PO DAILY@0800 07/06/22 04/09/23 History Nitroglycerin Sl Tabs [Nitrostat] 0.4 mg SL Q5M PRN 10/20/22 04/09/23 History Metoprolol Tartrate [Lopressor] 12.5 mg PO BID@0800,199912/08/22 04/09/23 History Sucralfate [Sucralfate Oral Susp] 1 gm PO ACHS@07,11,1630,2130 12/08/22 04/09/23 History Lactulose [Cephulac] 20 gm PO DAILY@0800 PRN #0 02/17/23 04/09/23 Rx Furosemide [Lasix] 40 mg PO BID@0600,1400 03/31/23 04/09/23 History HYDROcodone/APAP 5-325MG [[place] 1 tab PO Q6HR PRN 03/31/23 04/09/23 History 5-325] INSULIN ASPART (NovoLOG) [NovoLOG See Protocol SQ 03/31/23 04/09/23 History (formulary)] ACHS@07,11,1630,2130 Insulin Detemir (Levemir) [Levemir] 40 unit SQ HS@21303/31/23 04/09/23 History Sivakumar Packet 1 packet PO BID@0800,1700 03/31/23 04/09/23 History Lactobacillus Acidophilus 1 cap PO BID@0800,1700 03/31/23 04/09/23 History [Acidophilus Probiotic] Levofloxacin [Levaquin] 500 mg PO DAILY@0800 03/31/23 04/09/23 History Magic Butt Paste 1 applic TOPICAL BID 03/31/23 04/09/23 History Magnesium Hydroxide [Milk of 7,200 mg PO DAILY PRN 03/31/23 04/09/23 History Magnesia Concentrate] Na Phos,M-B/Na Phos,Di-Ba [Fleet 133 ml RECTAL DAILY PRN 03/31/23 04/09/23 History Adult] bisacodyL [Dulcolax] 10 mg RECTAL DAILY PRN 03/31/23 04/09/23 History ALPRAZolam [Xanax] 0.25 mg PO Q8H PRN 04/09/23 04/09/23 History Allergies Allergy/AdvReac Type Severity Reaction Status Date / Time furosemide [From Lasix] AdvReac Unknown Verified 04/09/23 20:49 sacubitril [From Entresto] AdvReac made him Verified 04/09/23 20:49 hypotensive valsartan [From Entresto] AdvReac made him Verified 04/09/23 20:49 hypotensive Physical Exam Vitals: Vital Signs Temp Pulse Pulse Resp BP BP Pulse Ox 04/10/23 08:04 96 04/10/23 07:54 97 04/10/23 07:15 98.1 F 96 20 131/71 100 04/10/23 02:00 98.3 F 90 20 134/70 100 04/09/23 23:55 98.5 F 93 20 109/67 100 04/09/23 23:50 98.5 F 93 20 109/67 100 04/09/23 22:40 98.1 F 96 20 132/72 100 04/09/23 22:00 98.3 F 86 18 138/77 96 04/09/23 21:45 98.1 F 96 20 132/72 100 04/09/23 21:30 97.9 F 92 127/70 96 04/09/23 21:20 89 04/09/23 21:10 91 04/09/23 21:00 92 04/09/23 20:50 96 04/09/23 20:30 89 20 96 04/09/23 20:00 98 139/71 04/09/23 19:30 95 121/63 04/09/23 19:00 89 118/54 04/09/23 18:30 84 115/59 04/09/23 18:00 92 116/54 04/09/23 17:30 91 121/68 04/09/23 17:13 99/79 04/09/23 17:05 88 18 135/63 100 Intake and Output 04/09/23 04/10/23 04/10/23 22:59 06:59 14:59 Intake Total 0 278 Output Total 600 1000 Balance 0 -322 -1000 Intake: Blood Product 0 278 Rc Pheresis 2 As3 Unit 0 278 [id number] Output: Urine 600 1000 Other: Voiding Method Urinal Weight 117.027 kg Results CBC & Chem 7: 04/10/23 04:46 04/10/23 04:46 Labs: Abnormal Lab Results - Last 24 Hours (Table) 04/09/23 04/09/23 04/09/23 Range/Units 18:19 18:19 19:41 RBC 2.45 L (4.30-5.90) m/uL Hgb 7.0 L D (13.0-17.5) gm/dL Hct 21.8 L (39.0-53.0) % BUN 81 H (9-20) mg/dL Creatinine 1.34 H (0.66-1.25) mg/dL Glucose 161 H (74-99) mg/dL POC Glucose (mg/dL) (70-110) mg/dL Albumin 3.3 L (3.5-5.0) g/dL Crossmatch See Detail 04/10/23 04/10/23 Range/Units 02:11 07:19 RBC 2.58 L (4.30-5.90) m/uL Hgb 7.4 L (13.0-17.5) gm/dL Hct 23.1 L (39.0-53.0) % BUN (9-20) mg/dL Creatinine (0.66-1.25) mg/dL Glucose (74-99) mg/dL POC Glucose (mg/dL) 209 H (70-110) mg/dL Albumin (3.5-5.0) g/dL Crossmatch
[2023-04-10 17:08] LABS: Glucose,Whole Blood 247 mg/dL (70-110)
[2023-04-10] MEDS: TOPIRAMATE 25 MG TAB PO SCH (21:54)
[2023-04-10] MEDS: INSULIN DETEMIR (LEVEMIR) 100 UNIT/ML SYR SQ SCH (21:54)
[2023-04-10] MEDS: ATORVASTATIN 80 MG TAB PO SCH (21:54)
--- NOTE | 2023-04-10 22:58 | P.CONS ---
History of Present Illness - Reason for Consult Consult date: 04/10/23 Left foot osteomyelitis Requesting physician: Edvin Ghotra - Chief Complaint Low hemoglobin and nonhealing wound to the left foot x days - History of Present Illness Patient is a 67-year-old male with a past medical history significant for hypertension hyperlipidemia VT diabetes mellitus dementia patient was recently admitted to this facility back in January 2023 patient did have a left fifth toe gangrene in this patient who is status post amputation of the left fifth toe local culture positive for Morganella and Enterococcus faecalis and the patient did have a positive blood culture with Morganella patient has completed his course of antibiotic therapy patient current local wound care to the left foot is a wound VAC patient has been sent to the hospital from the residential after the patient was noticed to have hemoglobin of 6.3 apparently the patient mention he did have a significant bleeding from his left foot wound after he pulled on the dressing patient denies having any headache or URI symptoms no nausea no vomiting no hematemesis no abdominal pain no diarrhea or any hematuria patient on presentation to the hospital was afebrile had no fever has been recorded subsequently patient did have white count of 8.2 creatinine is 1.2 patient has been admitted to hospital with consult to general surgery infectious disease was consulted regarding left foot wound management and need for antibiotic therapy as apparently the patient was on oral Levaquin on presentation to the hospital review of his culture data did show that patient did have a culture done from the left foot on 03/24/2023 that did grew MSSA and anaerobic gram-positive cocci Review of Systems Positive point and negatives has been mentioned in the HPI, complete review of systems was performed and all other systems are negative Past Medical History Past Medical History: Cancer, Heart Failure, COPD, Dementia, Diabetes Mellitus, GERD/Reflux, Hearing Disorder / Deafness, Hyperlipidemia, Hypertension, Myocardi al Infarction (VT), Osteoarthritis (OA), Pneumonia Additional Past Medical History / Comment(s): Brain CA (30 years ago) in remission. 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 Mother Additional Family Medical History / Comment(s): Mother had a bad heart. Medications and Allergies Home Medications Medication Instructions Recorded Confirmed Type Aspirin EC [Ecotrin Low Dose] 81 mg PO DAILY@0800 01/12/19 04/09/23 History Atorvastatin [Lipitor] 80 mg PO HS@2100 01/12/19 04/09/23 History Clopidogrel Bisulfate [Plavix] 75 mg PO DAILY@0800 07/28/21 04/09/23 History Ferrous Sulfate [Iron (65 MG 325 mg PO DAILY@0800 07/28/21 04/09/23 History Elemental)] Ipratropium-Albuterol Nebulize 3 ml INHALATION RT-QID@00,06,,07/28/21 04/09/23 History [Duoneb 0.5 mg-3 mg/3 ml Soln] Famotidine [Pepcid] 20 mg PO BID@0800,199903/18/22 04/09/23 History Topiramate [Topamax] 25 mg PO HS@2100 04/01/22 04/09/23 History Acetaminophen [Tylenol] 650 mg PO QID PRN 04/22/22 04/09/23 History Albuterol Sulfate [Albuterol 1 - 2 puff INHALATION RT-Q4H PRN 04/22/22 04/09/23 History Sulfate Hfa] Dicyclomine 10mg/5ml Oral Solution 10 mg PO TID@0800,1200,1700 07/06/22 04/09/23 History Isosorbide Mononitrate ER [Imdur] 30 mg PO DAILY@00 07/06/22 04/09/23 History Nitroglycerin Sl Tabs [Nitrostat] 0.4 mg SL Q5M PRN 10/20/22 04/09/23 History Metoprolol Tartrate [Lopressor] 12.5 mg PO BID@0800,199912/08/22 04/09/23 History Sucralfate [Sucralfate Oral Susp] 1 gm PO ACHS@11,1630,2130 12/08/22 04/09/23 History Lactulose [Cephulac] 20 gm PO DAILY@0800 PRN #0 02/17/23 04/09/23 Rx Furosemide [Lasix] 40 mg PO BID@0600,1400 03/31/23 04/09/23 History INSULIN ASPART (NovoLOG) [NovoLOG See Protocol SQ 03/31/23 04/09/23 History (formulary)] ACHS@07,11,1630,2130 Sivakumar Packet 1 packet PO BID@0800,1700 03/31/23 04/09/23 History Lactobacillus Acidophilus 1 cap PO BID@0800,1700 03/31/23 04/09/23 History [Acidophilus Probiotic] Magic Butt Paste 1 applic TOPICAL BID 03/31/23 04/09/23 History Magnesium Hydroxide [Milk of 7,200 mg PO DAILY PRN 03/31/23 04/09/23 History Magnesia Concentrate] Na Phos,M-B/Na Phos,Di-Ba [Fleet 133 ml RECTAL DAILY PRN 03/31/23 04/09/23 History Adult] bisacodyL [Dulcolax] 10 mg RECTAL DAILY PRN 03/31/23 04/09/23 History ALPRAZolam [Xanax] 0.25 mg PO Q8H PRN #3 tab 04/26/23 Rx Colchicine [Colcrys] 0.6 mg PO BID each 04/26/23 Rx Cyclobenzaprine [Flexeril] 10 mg PO TID PRN tab 04/26/23 Rx Escitalopram [Lexapro] 20 mg PO HS tab 04/26/23 Rx HYDROcodone/APAP 5-325MG [[place] 1 tab PO Q6HR PRN #4 tab 04/26/23 Rx 5-325] INSULIN ASPART (NovoLOG) [NovoLOG 8 unit SQ AC-TID each 04/26/23 Rx (formulary)] Insulin Detemir (Levemir) [Levemir] 25 unit SQ BID #0 04/26/23 04/09/23 Rx Melatonin 3 mg PO HS tab 04/26/23 Rx Paliperidone [Invega] 3 mg PO HS tab 04/26/23 Rx Pantoprazole Sodium [Protonix] 40 mg PO DAILY #30 tab 04/26/23 Rx ceFAZolin [Kefzol] 2 gm IVP Q8HR 30 Days #90 each 04/26/23 Rx metroNIDAZOLE [Flagyl] 500 mg PO TID #90 tab 04/26/23 Rx predniSONE 10 mg PO DIRECTED #18 tab 04/26/23 Rx Allergies Allergy/AdvReac Type Severity Reaction Status Date / Time furosemide [From Lasix] AdvReac Unknown Verified 04/09/23 20:49 sacubitril [From Entresto] AdvReac made him Verified 04/09/23 20:49 hypotensive valsartan [From Entresto] AdvReac made him Verified 04/09/23 20:49 hypotensive Physical Exam Vitals: Vital Signs Temp Pulse Pulse Resp BP BP Pulse Ox 04/10/23 08:04 96 04/10/23 07:54 97 04/10/23 07:15 98.1 F 96 20 131/71 100 04/10/23 02:00 98.3 F 90 20 134/70 100 04/09/23 23:55 98.5 F 93 20 109/67 100 04/09/23 23:50 98.5 F 93 20 109/67 100 04/09/23 22:40 98.1 F 96 20 132/72 100 04/09/23 22:00 98.3 F 86 18 138/77 96 04/09/23 21:45 98.1 F 96 20 132/72 100 04/09/23 21:30 97.9 F 92 127/70 96 04/09/23 21:20 89 04/09/23 21:10 91 04/09/23 21:00 92 04/09/23 20:50 96 04/09/23 20:30 89 20 96 04/09/23 20:00 98 139/71 04/09/23 19:30 95 121/63 04/09/23 19:00 89 118/54 04/09/23 18:30 84 115/59 04/09/23 18:00 92 116/54 04/09/23 17:30 91 121/68 04/09/23 17:13 99/79 04/09/23 17:05 88 18 135/63 100 Intake and Output 04/09/23 04/10/23 04/10/23 22:59 06:59 14:59 Intake Total 0 278 Output Total 600 1000 Balance 0 -322 -1000 Intake: Blood Product 0 278 Rc Pheresis 2 As3 Unit 0 278 [id number] Output: Urine 600 1000 Other: Voiding Method Urinal Weight 117.027 kg GENERAL DESCRIPTION: Elderly male lying in bed, no distress. No tachypnea or accessory muscle of respiration use. HEENT: Shows Pallor , no scleral icterus. Oral mucous membrane is dry. No pharyngeal erythema or thrush NECK: Trachea central, no thyromegaly. LUNGS: Unlabored breathing. Clear to auscultation anteriorly. No wheeze or crackle. HEART: S1, S2, regular rate and rhythm. No loud murmur ABDOMEN: Soft, no tenderness , guarding or rigidity, no organomegaly EXTREMITIES: Left foot lateral border wound nonhealing wound base with no slough tissue bones nonpalpable no significant surrounding redness or drainage SKIN: No rash, no masses palpable. NEUROLOGICAL: The patient is awake, alert, oriented x3, mood and affect normal. Results CBC & Chem 7: 04/26/23 07:06 04/26/23 07:06 Labs: Abnormal Lab Results - Last 24 Hours (Table) 04/09/23 04/09/23 04/09/23 Range/Units 18:19 18:19 19:41 RBC 2.45 L (4.30-5.90) m/uL Hgb 7.0 L D (13.0-17.5) gm/dL Hct 21.8 L (39.0-53.0) % MCHC (32.0-37.0) g/dL RDW (11.5-14.5) % Immature Gran # (0.00-0.04) X 10*3/uL BUN 81 H (9-20) mg/dL Creatinine 1.34 H (0.66-1.25) mg/dL BUN/Creatinine Ratio (12.00-20.00) Ratio Glucose 161 H (74-99) mg/dL POC Glucose (mg/dL) (70-110) mg/dL Albumin 3.3 L (3.5-5.0) g/dL Crossmatch See Detail 04/10/23 04/10/23 04/10/23 Range/Units 02:11 04:46 04:46 RBC 2.58 L 2.64 L (4.30-5.90) m/uL Hgb 7.4 L 7.5 L (13.0-17.5) gm/dL Hct 23.1 L 24.0 L (39.0-53.0) % MCHC 31.3 L (32.0-37.0) g/dL RDW 14.9 H (11.5-14.5) % Immature Gran # 0.07 H (0.00-0.04) X 10*3/uL BUN 67.0 H (9-20) mg/dL Creatinine (0.66-1.25) mg/dL BUN/Creatinine Ratio 55.83 H (12.00-20.00) Ratio Glucose 189 H (74-99) mg/dL POC Glucose (mg/dL) (70-110) mg/dL Albumin (3.5-5.0) g/dL Crossmatch 04/10/23 Range/Units 07:19 RBC (4.30-5.90) m/uL Hgb (13.0-17.5) gm/dL Hct (39.0-53.0) % MCHC (32.0-37.0) g/dL RDW (11.5-14.5) % Immature Gran # (0.00-0.04) X 10*3/uL BUN (9-20) mg/dL Creatinine (0.66-1.25) mg/dL BUN/Creatinine Ratio (12.00-20.00) Ratio Glucose (74-99) mg/dL POC Glucose (mg/dL) 209 H (70-110) mg/dL Albumin (3.5-5.0) g/dL Crossmatch Assessment and Plan (1) MSSA (methicillin susceptible Staphylococcus aureus) infection Status: Acute Code(s): A49.01 - METHICILLIN SUSCEP STAPH INFECTION, UNSP SITE SNOMED Code(s): 558917479 (2) Type 2 diabetes mellitus with foot ulcer Status: Acute Code(s): E11.621 - TYPE 2 DIABETES MELLITUS WITH FOOT ULCER; L97.509 - NON-PRESSURE CHRONIC ULCER OTH PRT UNSP FOOT W UNSP SEVERITY SNOMED Code(s): 119244404 Plan: 1patient with a chronic nonhealing wound to the left foot lateral border in this patient who did have a history of left fifth toe gangrene status post amputation back on February 09, 2023 at that point he did have Morganella bacteremia and local culture positive for Enterococcus and Morganella for the patient has completed course of IV antibiotic therapy, patient now with a nonh ealing wound and he did have a culture from the same area growing MSSA and anaerobic gram-positive cocci 2-we will repeat his blood cultures and check a CRP and sed rate 3-we will start the patient cefazolin 2 g great hour and oral Flagyl 4-local wound care with a wound VAC black foam continuous pressure 125 mmHg change Wednesday We will follow on clinical condition and cultures to further adjust medication if needed Thank you for this consultation we will follow the patient along with you Dictation was produced using [employer] dictation software. please excuse any grammatical, word or spelling errors. Time with Patient: Greater than 30
[2023-04-10 23:02] LABS: % Iron Saturation 21.62 (15.00-50.00)
[2023-04-11] MEDS: metroNIDAZOLE 500 MG TAB PO SCH ×4 (00:59→20:50)
[2023-04-11] MEDS: IPRATROPIUM-ALBUTEROL 3 ML NEB INHALATION SCH ×3 (07:17→15:09)
[2023-04-11 08:00] LABS: HCT 25.2 % (39.0-53.0); HGB 8.1 gm/dL (13.0-17.5); Hypochromasia Moderate; MCH 29.2 pg (25.0-35.0); MCHC 32.1 g/dL (31.0-37.0); Platelet Count 292 k/uL (150-450); RBC 2.77 m/uL (4.30-5.90); RDW 14.9 % (11.5-15.5); WBC 9.4 k/uL (3.8-10.6)
[2023-04-11] MEDS: PANTOPRAZOLE 40 MG/10 ML VIAL IVP SCH ×2 (08:23→20:50)
[2023-04-11 09:16] LABS: African American GFR (CKD) 59 (>60 ml/min/1.73 sqM); Chloride 104 mmol/L (98-107); Non-African American GFR(CKD) 51 (>60 ml/min/1.73 sqM); Total Protein 6.7 g/dL (6.3-8.2)
[2023-04-11 09:18] LABS: ALT 30 U/L (4-49); AST 26 U/L (17-59); Albumin 3.5 g/dL (3.5-5.0); Albumin/Globulin Ratio 1.1; Alkaline Phosphatase 106 U/L (38-126); Anion Gap 12 mmol/L; Blood Urea Nitrogen 62 mg/dL (9-20); C Reactive Protein 1.9 mg/dL (<1.0); Calcium 9.1 mg/dL (8.4-10.2); Carbon Dioxide 26 mmol/L (22-30); Globulin 3.2 g/dL; Glucose 143 mg/dL (74-99); Potassium 4.1 mmol/L (3.5-5.1); Sodium 142 mmol/L (137-145); Total Bilirubin 0.3 mg/dL (0.2-1.3)
[2023-04-11] MEDS: DICYCLOMINE 10 MG CAP PO SCH ×3 (09:39→16:33)
[2023-04-11] MEDS: FERROUS SULFATE 325 MG TAB PO SCH (09:39)
[2023-04-11] MEDS: METOPROLOL TARTRATE 12.5 MG TAB PO SCH ×2 (09:39→20:49)
[2023-04-11] MEDS: SUCRALFATE 1 GM TAB PO SCH ×4 (09:39→20:49)
[2023-04-11] MEDS: FAMOTIDINE 20 MG TAB PO SCH ×2 (09:39→20:49)
[2023-04-11] MEDS: LACTOBACILLUS ACIDOPHILUS/PECT 1 EACH CAPSULE PO SCH ×2 (09:39→16:33)
[2023-04-11] MEDS: ISOSORBIDE MONONITRATE ER 30 MG TAB.ER.24H PO SCH (09:39)
--- NOTE | 2023-04-11 12:03 | P.PN ---
Subjective Progress Note Date: 04/11/23 Principal diagnosis: GI bleed Patient brought to the hospital on Wednesday with heme positive stools and anemia. He apparently was having some bleeding from his amputation site however. He now has a wound VAC there. He has not had any visible bloody stools since admission. No history of previous GI workup. Hemoglobin 8.1 after 1 unit. Objective - Vital Signs Vital signs: Vital Signs Temp 98.1 F 04/11/23 07:35 Pulse 85 04/11/23 11:33 Resp 18 04/11/23 07:35 BP 100/61 04/11/23 07:35 Pulse Ox 95 04/11/23 07:35 FiO2 Intake & Output 04/10/23 04/11/23 04/11/23 18:59 06:59 18:59 Output Total 1100 600 850 Balance -1100 -600 -850 Output: Urine 1100 600 850 Other: Voiding Method Urinal Urinal # Voids 2 # Bowel Movements 1 - Exam Abdomen: Soft, nontender, nondistended - Labs CBC & Chem 7: 04/11/23 07:26 04/11/23 07:26 Labs: Abnormal Lab Results - Last 24 Hours (Table) 04/10/23 04/10/23 04/10/23 Range/Units 10:32 12:02 17:06 RBC (4.30-5.90) m/uL Hgb (13.0-17.5) gm/dL Hct (39.0-53.0) % BUN (9-20) mg/dL Creatinine (0.66-1.25) mg/dL Glucose (74-99) mg/dL POC Glucose (mg/dL) 251 H 247 H (70-110) mg/dL Iron 40 L (65-175) UG/DL TIBC 185 L (228-460) UG/DL Transferrin 132.0 L (204.0-354.0) mg/dL C-Reactive Protein (<1.0) mg/dL 04/11/23 04/11/23 Range/Units 07:26 07:26 RBC 2.77 L (4.30-5.90) m/uL Hgb 8.1 L (13.0-17.5) gm/dL Hct 25.2 L (39.0-53.0) % BUN 62 H (9-20) mg/dL Creatinine 1.43 H (0.66-1.25) mg/dL Glucose 143 H (74-99) mg/dL POC Glucose (mg/dL) (70-110) mg/dL Iron (65-175) UG/DL TIBC (228-460) UG/DL Transferrin (204.0-354.0) mg/dL C-Reactive Protein 1.9 H (<1.0) mg/dL Assessment and Plan (1) Anemia Narrative/Plan: 67-year-old male with GI bleed. We'll proceed with upper and lower endoscopy tomorrow. Source of bleeding could be related to the toe amputation site however with the heme positive stools they are requesting we proceed with endoscopy which I think is reasonable. Current Visit: Yes Status: Acute Code(s): D64.9 - ANEMIA, UNSPECIFIED SNOMED Code(s): 101153451
[2023-04-11] MEDS ORDERED: PEG 3350 (236 GM/BTL) + LYTES 4,000 ML BOTTLE PO ONE (13:00)
--- NOTE | 2023-04-11 14:40 | P.PN ---
Subjective Progress Note Date: 04/11/23 67-year-old gentleman with past medical history significant for hypertension, hyperlipidemia, diabetes, CAD, cardiomyopathy with an ejection fraction of 25- 30% who was sent to ER from [facility] for abnormal labs. Patient had blood work done at a facility and was found to have a low hemoglobin level of 6.3. Patient denies any complaint of any blood in the stool. There was no complain of any nausea or vomiting or any hematemesis. Denies any abdominal pain. Patient has a wound on his left leg with wound VAC that he thinks he picked and was bleeding. Denies any chest pain or shortness of breath. He was no complain of lightheadedness or dizziness. Because of these abnormal labs, patient was sent to the ER Initial lab work done in the ER showed WBC 8.7, hemoglobin 7, platelet count 317, sodium 140, potassium 4, BUN 81, creatinine 1.34, glucose 161, FOBT positive Patient admitted to internal medicine service 04/11. Patient seen and examined. WBC 9.4, hemoglobin 8.1, sodium is 142, potassium was 4.1, BUN is 62, creatinine is 1.43. Denies any lightheadedness or dizziness. Wound VAC in place. REVIEW OF SYSTEMS: CONSTITUTIONAL: No fever, no malaise,. CARDIOVASCULAR: No chest pain, no palpitations, no syncope. PULMONARY: No shortness of breath, no cough, GASTROINTESTINAL: No diarrhea, no nausea, no vomiting, no abdominal pain. NEUROLOGICAL: No headaches, no weakness, PHYSICAL EXAMINATION: GENERAL: The patient is alert and oriented x3, not in any acute distress. Well developed, well nourished. HEENT: Pupils are round and equally reacting to light. EOMI. No scleral icterus. No conjunctival pallor. Normocephalic, atraumatic. No pharyngeal erythema. No thyromegaly. CARDIOVASCULAR: S1 and S2 present. No murmurs, rubs, or gallops. PULMONARY: Chest is clear to auscultation, no wheezing or crackles. ABDOMEN: Soft, nontender, nondistended, normoactive bowel sounds. No palpable organomegaly. MUSCULOSKELETAL: Left foot wound VAC seen EXTREMITIES: No cyanosis, clubbing, or pedal edema. NEUROLOGICAL: Gross neurological examination did not reveal any focal deficits. SKIN: No rashes. Assessment and plan Chronic nonhealing ulcer of left foot, wound culture growing MSSA Acute blood loss anemia FOBT positive History of left foot wound with evidence of osteomyelitis status post amputation of the left fifth toe CAD with known chronic total occlusion of the distal RCA and intermediate disease involving the OM1 PAD with recent EXAMINER OF CURRENCY involving the left SFA hypertension hyperlipidemia COPD chronic hypoxic respiratory failure on home O2 Diabetes mellitus Monitor vital signs Monitor CBC Monitor CMP Continue telemetry monitoring Resume aspirin and Plavix Continue IV Protonix Continue Carafate Continue IV cefazolin and Flagyl Patient received 1 unit of packed red blood cell in the ER Surgery consulted, no GI coverage at this time, evaluate the patient, believes bleeding is from the wound VAC site, since hemoglobin remained stable, no need for any endoscopic intervention at this time ID following In regards to hypertension, Lopressor and Imdur Regards to hyperlipidemia , Lipitor In regards to acute anemia,continue to monitor H&H transfuse for hemodynamic instability or hemoglobin less than 7 In regards to diabetes mellitus, continue current insulin regimen Labs and medication were reviewed.. Continue same treatment. Continue with symptomatic treatment. Resume home medication. Monitor labs and vitals. DVT and GI prophylaxis. Further recommendations as per clinical course of the patient Dictation was produced using [employer] dictation software. please excuse any grammatical, word or spelling errors. Objective - Vital Signs Vital signs: Vital Signs Temp 98.1 F 04/11/23 07:35 Pulse 102 H 04/11/23 07:35 Resp 18 04/11/23 07:35 BP 100/61 04/11/23 07:35 Pulse Ox 95 04/11/23 07:35 FiO2 Intake & Output 04/10/23 04/11/23 04/11/23 18:59 06:59 18:59 Output Total 1100 600 500 Balance -1100 -600 -500 Output: Urine 1100 600 500 Other: Voiding Method Urinal Urinal # Voids 2 # Bowel Movements 1 - Labs CBC & Chem 7: 04/11/23 07:26 04/11/23 07:26 Labs: Abnormal Lab Results - Last 24 Hours (Table) 04/10/23 04/10/23 04/10/23 Range/Units 10:32 12:02 17:06 RBC (4.30-5.90) m/uL Hgb (13.0-17.5) gm/dL Hct (39.0-53.0) % BUN (9-20) mg/dL Creatinine (0.66-1.25) mg/dL Glucose (74-99) mg/dL POC Glucose (mg/dL) 251 H 247 H (70-110) mg/dL Iron 40 L (65-175) UG/DL TIBC 185 L (228-460) UG/DL Transferrin 132.0 L (204.0-354.0) mg/dL C-Reactive Protein (<1.0) mg/dL 04/11/23 04/11/23 Range/Units 07:26 07:26 RBC 2.77 L (4.30-5.90) m/uL Hgb 8.1 L (13.0-17.5) gm/dL Hct 25.2 L (39.0-53.0) % BUN 62 H (9-20) mg/dL Creatinine 1.43 H (0.66-1.25) mg/dL Glucose 143 H (74-99) mg/dL POC Glucose (mg/dL) (70-110) mg/dL Iron (65-175) UG/DL TIBC (228-460) UG/DL Transferrin (204.0-354.0) mg/dL C-Reactive Protein 1.9 H (<1.0) mg/dL
[2023-04-11 16:12] VITALS: BMI 30.6
--- NOTE | 2023-04-11 16:21 | P.PN ---
Subjective Progress Note Date: 04/11/23 Principal diagnosis: Reason for follow-up is left diabetic foot ulcer with recent culture positive for MSSA and anaerobes Patient is a 67-year-old male with a past medical history significant for hypertension hyperlipidemia [place] diabetes mellitus dementia patient was rece ntly admitted to this facility with left fifth toe gangrene status post amputation he did have a Morganella bacteremia at that point the patient completed his antibiotic therapy patient to follow at [facility] apparently the patient have a culture done on 03/24/2023 that grew MSSA and anaerobes patient not very clear if he received any treatment for the presenting to the hospital with hemoglobin of 6.3 On today's evaluation that is 04/11/2023, the patient denies having any fever or any chills he is breathing comfortable on 2 L nasal cannula oxygen denies any chest pain shortness of breath or cough no abdominal pain or pain to the left lower extremity Patient did have white count 9.4, creatinine is 1.43, hemoglobin is 8.1 Objective - Vital Signs Vital signs: Vital Signs Temp 98 F 04/11/23 12:28 Pulse 85 04/11/23 15:18 Resp 18 04/11/23 12:28 BP 115/63 04/11/23 12:28 Pulse Ox 95 04/11/23 12:28 FiO2 Intake & Output 04/10/23 04/11/23 04/11/23 18:59 06:59 18:59 Output Total 5803 205 5067 Balance -1100 600 -1075 Weight 117.027 kg Output: Urine 8305 311 0713 Other: Voiding Method Urinal Urinal # Voids 2 # Bowel Movements 1 - Exam GENERAL DESCRIPTION: An elderly male lying in bed in no distress RESPIRATORY SYSTEM: Unlabored breathing , decreased breath sounds at bases HEART: S1 S2 regular rate and rhythm , ABDOMEN: Soft , no tenderness EXTREMITIES: Left fifth toe amputation site wound is covered with a wound VAC - Labs CBC & Chem 7: 04/11/23 07:26 04/11/23 07:26 Labs: Abnormal Lab Results - Last 24 Hours (Table) 04/10/23 04/10/23 04/11/23 Range/Units 10:32 17:06 07:26 RBC 2.77 L (4.30-5.90) m/uL Hgb 8.1 L (13.0-17.5) gm/dL Hct 25.2 L (39.0-53.0) % BUN (9-20) mg/dL Creatinine (0.66-1.25) mg/dL Glucose (74-99) mg/dL POC Glucose (mg/dL) 247 H (70-110) mg/dL Iron 40 L (65-175) UG/DL TIBC 185 L (228-460) UG/DL Transferrin 132.0 L (204.0-354.0) mg/dL C-Reactive Protein (<1.0) mg/dL 04/11/23 Range/Units 07:26 RBC (4.30-5.90) m/uL Hgb (13.0-17.5) gm/dL Hct (39.0-53.0) % BUN 62 H (9-20) mg/dL Creatinine 1.43 H (0.66-1.25) mg/dL Glucose 143 H (74-99) mg/dL POC Glucose (mg/dL) (70-110) mg/dL Iron (65-175) UG/DL TIBC (228-460) UG/DL Transferrin (204.0-354.0) mg/dL C-Reactive Protein 1.9 H (<1.0) mg/dL Assessment and Plan (1) MSSA (methicillin susceptible Staphylococcus aureus) infection Current Visit: Yes Status: Acute Code(s): A49.01 - METHICILLIN SUSCEP STAPH INFECTION, UNSP SITE SNOMED Code(s): 102698211 (2) Diabetic infection of left foot Current Visit: No Status: Acute Code(s): E11.628 - TYPE 2 DIABETES MELLITUS WITH OTHER SKIN COMPLICATIONS; L08.9 - LOCAL INFECTION OF THE SKIN AND SUBCUTANEOUS TISSUE, UNSP SNOMED Code(s): 33237162 (3) Type 2 diabetes mellitus with foot ulcer Current Visit: No Status: Acute Code(s): E11.621 - TYPE 2 DIABETES MELLITUS WITH FOOT ULCER; L97.509 - NON-PRESSURE CHRONIC ULCER OTH PRT UNSP FOOT W UNSP SEVERITY SNOMED Code(s): 639764861 Plan: 1patient with a chronic nonhealing wound to the left foot lateral border in this patient who did have a history of left fifth toe gangrene status post amput ation back on February 09, 2023 at that point he did have Morganella bacteremia and local culture positive for Enterococcus and Morganella for the patient has completed course of IV antibiotic therapy, patient now with a nonhealing wound and he did have a culture from the same area growing MSSA and anaerobic gram- positive cocci 2currently waiting for repeat cultures and inflammatory markers. 3we will keep the patient on cefazolin and Flagyl and local wound care to continue with the wound VAC Dictation was produced using [employer] dictation software. please excuse any grammatical, word or spelling errors. Time with Patient: Less than 30
[2023-04-11] MEDS: INSULIN DETEMIR (LEVEMIR) 100 UNIT/ML SYR SQ SCH (20:49)
[2023-04-11] MEDS: ATORVASTATIN 80 MG TAB PO SCH (20:49)
[2023-04-11] MEDS: TOPIRAMATE 25 MG TAB PO SCH (21:09)
[2023-04-11 22:58] LABS: Erythrocyte Sedimentation Rate 42 mm/Hr (0-20)
[2023-04-12] MEDS: IPRATROPIUM-ALBUTEROL 3 ML NEB INHALATION SCH ×5 (02:13→20:58)
[2023-04-12] MEDS: ISOSORBIDE MONONITRATE ER 30 MG TAB.ER.24H PO SCH (08:12)
[2023-04-12] MEDS: PANTOPRAZOLE 40 MG/10 ML VIAL IVP SCH ×2 (08:12→21:20)
[2023-04-12] MEDS: DICYCLOMINE 10 MG CAP PO SCH ×3 (08:12→17:03)
[2023-04-12] MEDS: METOPROLOL TARTRATE 12.5 MG TAB PO SCH ×2 (08:12→21:21)
[2023-04-12] MEDS: FAMOTIDINE 20 MG TAB PO SCH ×2 (08:12→21:20)
[2023-04-12] MEDS: FERROUS SULFATE 325 MG TAB PO SCH (08:12)
[2023-04-12] MEDS: metroNIDAZOLE 500 MG TAB PO SCH ×3 (08:12→21:21)
[2023-04-12] MEDS: SUCRALFATE 1 GM TAB PO SCH ×4 (08:12→21:21)
[2023-04-12] MEDS: CLOPIDOGREL 75 MG TAB PO SCH (08:13)
[2023-04-12] MEDS: ASPIRIN 81 MG PO SCH (08:13)
[2023-04-12] MEDS: LACTOBACILLUS ACIDOPHILUS/PECT 1 EACH CAPSULE PO SCH ×2 (08:13→17:03)
[2023-04-12] MEDS ORDERED: LACTATED RINGERS 1,000 ML IV ONE (09:45)
[2023-04-12] MEDS ORDERED: PROPOFOL 10 MG/ML 20 ML VIAL IV ONE (09:45)
--- NOTE | 2023-04-12 10:05 | P.PCN ---
Date of Procedure: 04/12/23 Procedure(s) Performed: PREOPERATIVE DIAGNOSIS: GI bleed, anemia POSTOPERATIVE DIAGNOSIS: Erosive gastritis, poor prep PROCEDURE: 1. EGD with biopsy 2. Colonoscopy aborted ANESTHESIA: MAC SURGEON: Demetrius Steen M.D. SPECIMENS: Antrum, body ENDOSCOPIC PROCEDURE: The patient was on the endoscopy table in the left decubitus position. The Olympus gastroscope was inserted into the oropharynx and passed under direct visualization to the region of the third portion of the duodenum. From that point the scope was slowly withdrawn inspecting all surfaces carefully. There were no neoplastic inflammatory or polypoid lesions throughout the duodenum. The pylorus was widely patent. The stomach was carefully inspected. There was mild diffuse gastritis. A biopsy of the antrum took place. In the body of the stomach along the lesser curvature there was an erosive area of gastritis with some hemorrhagic appearance to the mucosa. Biopsies were taken there as well. This may have been the source of recent anemia. Retroflexion revealed a normal hiatus. The esophagus was then carefully examined. There were no neoplastic inflammatory or polypoid lesions throughout the visualized esophagus. The patient was kept on the endoscopy table in the left decubitus position. The Olympus colonoscope was inserted into the anus and passed under direct visualization to the region of the descending colon. The patient had too much retained solid and liquid stool to proceed. The scope was withdrawn. No obvious abnormalities were noted. Digital rectal examination was normal. The patient was taken to the recovery room in stable condition per anesthesia guidelines. RECOMMENDATIONS: Reprep today for reattempt at colonoscopy tomorrow.
--- NOTE | 2023-04-12 12:05 | P.PN ---
Subjective Progress Note Date: 04/12/23 67-year-old gentleman with past medical history significant for hypertension, hyperlipidemia, diabetes, CAD, cardiomyopathy with an ejection fraction of 25- 30% who was sent to ER from [facility] for abnormal labs. Patient had blood work done at a facility and was found to have a low hemoglobin level of 6.3. Patient denies any complaint of any blood in the stool. There was no complain of any nausea or vomiting or any hematemesis. Denies any abdominal pain. Patient has a wound on his left leg with wound VAC that he thinks he picked and was bleeding. Denies any chest pain or shortness of breath. He was no complain of lightheadedness or dizziness. Because of these abnormal labs, patient was sent to the ER Initial lab work done in the ER showed WBC 8.7, hemoglobin 7, platelet count 317, sodium 140, potassium 4, BUN 81, creatinine 1.34, glucose 161, FOBT positive Patient admitted to internal medicine service 04/11. Patient seen and examined. WBC 9.4, hemoglobin 8.1, sodium is 142, potassium was 4.1, BUN is 62, creatinine is 1.43. Denies any lightheadedness or dizziness. Wound VAC in place. 04/12/23. Patient seen and examined. Laying comfortably in the bed. Patient EGD done this morning, showed gastritis. REVIEW OF SYSTEMS: CONSTITUTIONAL: No fever, no malaise,. CARDIOVASCULAR: No chest pain, no palpitations, no syncope. PULMONARY: No shortness of breath, no cough, GASTROINTESTINAL: No diarrhea, no nausea, no vomiting, no abdominal pain. NEUROLOGICAL: No headaches, no weakness, PHYSICAL EXAMINATION: GENERAL: The patient is alert and oriented x3, not in any acute distress. Well developed, well nourished. HEENT: Pupils are round and equally reacting to light. EOMI. No scleral icterus. No conjunctival pallor. Normocephalic, atraumatic. No pharyngeal erythema. No thyromegaly. CARDIOVASCULAR: S1 and S2 present. No murmurs, rubs, or gallops. PULMONARY: Chest is clear to auscultation, no wheezing or crackles. ABDOMEN: Soft, nontender, nondistended, normoactive bowel sounds. No palpable organomegaly. MUSCULOSKELETAL: Left foot wound VAC seen EXTREMITIES: No cyanosis, clubbing, or pedal edema. NEUROLOGICAL: Gross neurological examination did not reveal any focal deficits. SKIN: No rashes. 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 EGD done showed gastritis ID following In regards to hypertension, Lopressor and Imdur Regards to hyperlipidemia , Lipitor In regards to acute anemia,continue to monitor H&H transfuse for hemodynamic instability or hemoglobin less than 7 In regards to diabetes mellitus, continue current insulin regimen Labs and medication were reviewed.. Continue same treatment. Continue with symptomatic treatment. Resume home medication. Monitor labs and vitals. DVT and GI prophylaxis. Further recommendations as per clinical course of the patient Dictation was produced using [employer] dictation software. please excuse any grammatical, word or spelling errors. Objective - Vital Signs Vital signs: Vital Signs Temp 97.9 F 04/12/23 07:53 Pulse 86 04/12/23 07:56 Resp 16 04/12/23 07:53 BP 116/63 04/12/23 07:53 Pulse Ox 100 04/12/23 07:53 FiO2 Intake & Output 04/11/23 04/12/23 04/12/23 18:59 06:59 18:59 Intake Total 100 Output Total 1275 400 Balance -1275 -400 100 Weight 117.027 kg Intake: IV 100 Output: Urine 1275 400 Other: Voiding Method Urinal # Bowel Movements 2 1 - Labs CBC & Chem 7: 04/11/23 07:26 04/11/23 07:26 Labs: Abnormal Lab Results - Last 24 Hours (Table) 04/11/23 Range/Units 07:26 ESR 42 H (0-20) mm/Hr
[2023-04-12] MEDS: PEG 3350 (420 GM/BTL) + LYTES 4,000 ML BOTTLE PO ONE ×2 (12:12→12:36)
--- NOTE | 2023-04-12 15:58 | P.PN ---
Subjective Progress Note Date: 04/12/23 Principal diagnosis: Reason for follow-up is left diabetic foot ulcer with recent culture positive for MSSA and anaerobes Patient is a 67-year-old male with a past medical history significant for hypertension hyperlipidemia [place] diabetes mellitus dementia patient was rece ntly admitted to this facility with left fifth toe gangrene status post amputation he did have a Morganella bacteremia at that point the patient completed his antibiotic therapy patient to follow at [facility] [place] apparently the patient have a culture done on 03/24/2023 that grew MSSA and anaerobes patient not very clear if he received any treatment for the presenting to the hospital with hemoglobin of 6.3 On today's evaluation that is 04/12/2023, the patient remains to be afebrile, the patient is breathing comfortably on 2 L nasal cannula supplemental oxygen patient denies having any chest pain shortness of breath or cough, the patient denies any nausea no vomiting no abdominal pain did have some loose stool but is getting bowel prep for colonoscopy and denies pain to the left foot wound area Patient did have white count 9.4, creatinine is 1.43 ESR 42, CRP 1.9 Objective - Vital Signs Vital signs: Vital Signs Temp 98.2 F 04/12/23 11:30 Pulse 85 04/12/23 15:33 Resp 16 04/12/23 11:30 BP 115/62 04/12/23 11:30 Pulse Ox 100 04/12/23 11:30 FiO2 Intake & Output 04/11/23 04/12/23 04/12/23 18:59 06:59 18:59 Intake Total 100 Output Total 1275 400 200 Balance -1275 -400 -100 Weight 117.027 kg Intake: IV 100 Output: Urine 1275 400 200 Other: Voiding Method Urinal Urinal # Bowel Movements 2 1 - Exam GENERAL DESCRIPTION: An elderly male lying in bed in no distress RESPIRATORY SYSTEM: Unlabored breathing , decreased breath sounds at bases HEART: S1 S2 regular rate and rhythm , ABDOMEN: Soft , no tenderness EXTREMITIES: Left fifth toe amputation site wound is covered with a wound VAC - Labs CBC & Chem 7: 04/11/23 07:26 04/11/23 07:26 Labs: Abnormal Lab Results - Last 24 Hours (Table) 04/11/23 Range/Units 07:26 ESR 42 H (0-20) mm/Hr Assessment and Plan (1) MSSA (methicillin susceptible Staphylococcus aureus) infection Current Visit: Yes Status: Acute Code(s): A49.01 - METHICILLIN SUSCEP STAPH INFECTION, UNSP SITE SNOMED Code(s): 073165337 (2) Diabetic infection of left foot Current Visit: No Status: Acute Code(s): E11.628 - TYPE 2 DIABETES MELLITUS WITH OTHER SKIN COMPLICATIONS; L08.9 - LOCAL INFECTION OF THE SKIN AND SUBCUTANEOUS TISSUE, UNSP SNOMED Code(s): 01938555 (3) Type 2 diabetes mellitus with foot ulcer Current Visit: No Status: Acute Code(s): E11.621 - TYPE 2 DIABETES MELLITUS WITH FOOT ULCER; L97.509 - NON-PRESSURE CHRONIC ULCER OTH PRT UNSP FOOT W UNSP SEVERITY SNOMED Code(s): 087918652 Plan: 1patient with a chronic nonhealing wound to the left foot lateral border in this patient who did have a history of left fifth toe gangrene status post amputation back on February 09, 2023 at that point he did have Morganella bacteremia and local culture positive for Enterococcus and Morganella for the patient has completed course of IV antibiotic therapy, patient now with a nonhealing wound and he did have a culture from the same area growing MSSA and anaerobic gram-positive cocci 2patient did have mild elevated inflammatory markers with a sed rate of 42. 3patient to continue cefazolin Flagyl local wound care with wound VAC will benefit from PICC line and Outpatient IV antibiotic therapy on discharge Dictation was produced using [employer] dictation software. please excuse any grammatical, word or spelling errors.
[2023-04-12] MEDS: ACETAMINOPHEN TAB 325 MG TAB PO PRN (16:03)
[2023-04-12] MEDS: ATORVASTATIN 80 MG TAB PO SCH (21:20)
[2023-04-12] MEDS: TOPIRAMATE 25 MG TAB PO SCH (21:20)
[2023-04-12] MEDS: INSULIN DETEMIR (LEVEMIR) 100 UNIT/ML SYR SQ SCH (21:21)
[2023-04-13] MEDS: ACETAMINOPHEN TAB 325 MG TAB PO PRN (03:28)
[2023-04-13] MEDS: HYDROcodone/APAP 5-325MG 1 EACH TAB PO PRN ×3 (04:59→21:55)
[2023-04-13] MEDS: IPRATROPIUM-ALBUTEROL 3 ML NEB INHALATION SCH ×4 (07:43→18:20)
[2023-04-13] MEDS: PANTOPRAZOLE 40 MG/10 ML VIAL IVP SCH ×2 (08:54→21:54)
[2023-04-13] MEDS: FERROUS SULFATE 325 MG TAB PO SCH (08:54)
[2023-04-13] MEDS: LACTOBACILLUS ACIDOPHILUS/PECT 1 EACH CAPSULE PO SCH ×2 (08:54→17:40)
[2023-04-13] MEDS: ISOSORBIDE MONONITRATE ER 30 MG TAB.ER.24H PO SCH (08:54)
[2023-04-13] MEDS: DICYCLOMINE 10 MG CAP PO SCH ×3 (08:54→17:40)
[2023-04-13] MEDS: FAMOTIDINE 20 MG TAB PO SCH ×2 (08:54→21:54)
[2023-04-13] MEDS: SUCRALFATE 1 GM TAB PO SCH ×4 (08:54→21:54)
[2023-04-13] MEDS: METOPROLOL TARTRATE 12.5 MG TAB PO SCH ×2 (08:54→21:55)
[2023-04-13] MEDS: metroNIDAZOLE 500 MG TAB PO SCH ×3 (08:55→21:54)
[2023-04-13] MEDS: ASPIRIN 81 MG PO SCH (08:55)
[2023-04-13] MEDS: CLOPIDOGREL 75 MG TAB PO SCH (08:55)
[2023-04-13 09:47] LABS: HCT 25.7 % (39.0-53.0); HGB 8.1 gm/dL (13.0-17.5); Hypochromasia Moderate; MCH 28.6 pg (25.0-35.0); MCHC 31.5 g/dL (31.0-37.0); Mean Platelet Volume 7.9; Platelet Count 280 k/uL (150-450); RBC 2.82 m/uL (4.30-5.90); WBC 8.3 k/uL (3.8-10.6)
[2023-04-13 10:01] LABS: African American GFR (CKD) >90 (>60 ml/min/1.73 sqM); Anion Gap 11 mmol/L; Blood Urea Nitrogen 28 mg/dL (9-20); Calcium 8.6 mg/dL (8.4-10.2); Carbon Dioxide 24 mmol/L (22-30); Chloride 108 mmol/L (98-107); Glucose 78 mg/dL (74-99); Non-African American GFR(CKD) 85 (>60 ml/min/1.73 sqM); Potassium 3.7 mmol/L (3.5-5.1); Sodium 143 mmol/L (137-145)
[2023-04-13] MEDS ORDERED: CYCLOBENZAPRINE 10 MG TAB PO PRN (12:16)
--- NOTE | 2023-04-13 12:43 | P.PN ---
Subjective Progress Note Date: 04/13/23 67-year-old gentleman with past medical history significant for hypertension, hyperlipidemia, diabetes, CAD, cardiomyopathy with an ejection fraction of 25- 30% who was sent to ER from [facility] for abnormal labs. Patient had blood work done at a facility and was found to have a low hemoglobin level of 6.3. Patient denies any complaint of any blood in the stool. There was no complain of any nausea or vomiting or any hematemesis. Denies any abdominal pain. Patient has a wound on his left leg with wound VAC that he thinks he picked and was bleeding. Denies any chest pain or shortness of breath. He was no complain of lightheadedness or dizziness. Because of these abnormal labs, patient was sent to the ER Initial lab work done in the ER showed WBC 8.7, hemoglobin 7, platelet count 317, sodium 140, potassium 4, BUN 81, creatinine 1.34, glucose 161, FOBT positive Patient admitted to internal medicine service 04/11. Patient seen and examined. WBC 9.4, hemoglobin 8.1, sodium is 142, potassium was 4.1, BUN is 62, creatinine is 1.43. Denies any lightheadedness or dizziness. Wound VAC in place. 04/12/23. Patient seen and examined. Laying comfortably in the bed. Patient EGD done this morning, showed gastritis. 04/13. Patient seen and examined. Complaining of pain in his right hand. Feels like a spasm. We'll check calcium and uric acid levels REVIEW OF SYSTEMS: CONSTITUTIONAL: No fever, no malaise,. CARDIOVASCULAR: No chest pain, no palpitations, no syncope. PULMONARY: No shortness of breath, no cough, GASTROINTESTINAL: No diarrhea, no nausea, no vomiting, no abdominal pain. NEUROLOGICAL: No headaches, no weakness, PHYSICAL EXAMINATION: GENERAL: The patient is alert and oriented x3, not in any acute distress. Well developed, well nourished. HEENT: Pupils are round and equally reacting to light. EOMI. No scleral icterus. No conjunctival pallor. Normocephalic, atraumatic. No pharyngeal erythema. No thyromegaly. CARDIOVASCULAR: S1 and S2 present. No murmurs, rubs, or gallops. PULMONARY: Chest is clear to auscultation, no wheezing or crackles. ABDOMEN: Soft, nontender, nondistended, normoactive bowel sounds. No palpable organomegaly. MUSCULOSKELETAL: Left foot wound VAC seen EXTREMITIES: No cyanosis, clubbing, or pedal edema. NEUROLOGICAL: Gross neurological examination did not reveal any focal deficits. SKIN: No rashes. 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 hypertension hyperlipidemia COPD chronic hypoxic respiratory failure on home O2 Diabetes mellitus Monitor vital signs Monitor CBC Monitor CMP Continue telemetry monitoring continue aspirin and Plavix Continue IV Protonix Continue Carafate Continue IV cefazolin and Flagyl Ordered uric acid level Patient received 1 unit of packed red blood cell in the ER Surgery consulted, no GI coverage at this time, EGD done showed gastritis ID following In regards to hypertension, Lopressor and Imdur Regards to hyperlipidemia , Lipitor In regards to acute anemia,continue to monitor H&H transfuse for hemodynamic instability or hemoglobin less than 7 In regards to diabetes mellitus, continue current insulin regimen Labs and medication were reviewed.. Continue same treatment. Continue with symptomatic treatment. Resume home medication. Monitor labs and vitals. DVT and GI prophylaxis. Further recommendations as per clinical course of the patient Dictation was produced using [employer] dictation software. please excuse any grammatical, word or spelling errors. Objective - Vital Signs Vital signs: Vital Signs Temp 97.5 F L 04/13/23 11:32 Pulse 78 04/13/23 11:32 Resp 16 04/13/23 11:32 BP 129/71 04/13/23 11:32 Pulse Ox 100 04/13/23 11:32 FiO2 Intake & Output 04/12/23 04/13/23 04/13/23 18:59 06:59 18:59 Intake Total 100 Output Total 200 425 Balance -100 -425 Intake: IV 100 Output: Urine 200 425 Other: Voiding Method Urinal Urinal Urinal # Voids 5 4 # Bowel Movements 5 4 - Labs CBC & Chem 7: 04/13/23 09:28 04/13/23 09:28 Labs: Abnormal Lab Results - Last 24 Hours (Table) 01/02/24 01/02/24 Range/Units 09:28 09:28 RBC 2.82 L (4.30-5.90) m/uL Hgb 8.1 L (13.0-17.5) gm/dL Hct 25.7 L (39.0-53.0) % Chloride 108 H (98-107) mmol/L BUN 28 H (9-20) mg/dL Microbiology - Last 24 Hours (Table) 04/11/23 07:26 Blood Culture - Preliminary Blood
[2023-04-13] MEDS ORDERED: MAGNESIUM CITRATE 296 ML BOTTLE PO ONE (13:16)
--- NOTE | 2023-04-13 13:30 | P.PN ---
Subjective Progress Note Date: 04/13/23 Principal diagnosis: Reason for follow-up is left diabetic foot ulcer with recent culture positive for MSSA and anaerobes Patient is a 67-year-old male with a past medical history significant for hypertension hyperlipidemia [place] diabetes mellitus dementia patient was rece ntly admitted to this facility with left fifth toe gangrene status post amputation he did have a Morganella bacteremia at that point the patient completed his antibiotic therapy patient to follow at [facility] apparently the patient have a culture done on 03/24/2023 that grew MSSA and anaerobes patient not very clear if he received any treatment for the presenting to the hospital with hemoglobin of 6.3 On today's evaluation that is 04/13/2023, the patient remains to be afebrile, the patient is breathing comfortably on room air denies any chest pain shortness of breath or cough no nausea vomiting no abdominal pain currently waiting for colonoscopy did have some loose stool after taking the bowel prep denies pain to the left foot. Patient did have white count of 8.3, creatinine 0.94 Objective - Vital Signs Vital signs: Vital Signs Temp 97.5 F L 04/13/23 11:32 Pulse 78 04/13/23 11:32 Resp 16 04/13/23 11:32 BP 129/71 04/13/23 11:32 Pulse Ox 100 04/13/23 11:32 FiO2 Intake & Output 04/12/23 04/13/23 04/13/23 18:59 06:59 18:59 Intake Total 100 Output Total 200 425 Balance -100 -425 Intake: IV 100 Output: Urine 200 425 Other: Voiding Method Urinal Urinal Urinal # Voids 5 4 # Bowel Movements 5 4 - Exam GENERAL DESCRIPTION: An elderly male lying in bed in no distress RESPIRATORY SYSTEM: Unlabored breathing , decreased breath sounds at bases HEART: S1 S2 regular rate and rhythm , ABDOMEN: Soft , no tenderness EXTREMITIES: Left fifth toe amputation site wound is covered with a wound VAC - Labs CBC & Chem 7: 04/13/23 09:28 04/13/23 09:28 Labs: Abnormal Lab Results - Last 24 Hours (Table) 04/13/23 04/13/23 Range/Units 09:28 09:28 RBC 2.82 L (4.30-5.90) m/uL Hgb 8.1 L (13.0-17.5) gm/dL Hct 25.7 L (39.0-53.0) % Chloride 108 H (98-107) mmol/L BUN 28 H (9-20) mg/dL Microbiology - Last 24 Hours (Table) 04/11/23 07:26 Blood Culture - Preliminary Blood Assessment and Plan (1) MSSA (methicillin susceptible Staphylococcus aureus) infection Current Visit: Yes Status: Acute Code(s): A49.01 - METHICILLIN SUSCEP STAPH INFECTION, UNSP SITE SNOMED Code(s): 789263067 (2) Diabetic infection of left foot Current Visit: No Status: Acute Code(s): E11.628 - TYPE 2 DIABETES MELLITUS WITH OTHER SKIN COMPLICATIONS; L08.9 - LOCAL INFECTION OF THE SKIN AND SUBCUTANEOUS TISSUE, UNSP SNOMED Code(s): 18829363 (3) Type 2 diabetes mellitus with foot ulcer Current Visit: No Status: Acute Code(s): E11.621 - TYPE 2 DIABETES MELLITUS WITH FOOT ULCER; L97.509 - NON-PRESSURE CHRONIC ULCER OTH PRT UNSP FOOT W UNSP SEVERITY SNOMED Code(s): 722416471 Plan: 1patient with a chronic nonhealing wound to the left foot lateral border in this patient who did have a history of left fifth toe gangrene status post amputation back on February 09, 2023 at that point he did have Morganella bacteremia and local culture positive for Enterococcus and Morganella for the patient has completed course of IV antibiotic therapy, patient now with a nonhealing wound and he did have a culture from the same area growing MSSA and anaerobic gram-positive cocci 2patient did have mild elevated inflammatory markers with a sed rate of 42. 3we will culture the patient on cefazolin Flagyl local wound care with wound VAC change Wednesday ordered PICC line for outpatient IV Antibiotic therapy Dictation was produced using [employer] dictation software. please excuse any grammatical, word or spelling errors. Time with Patient: Less than 30
--- NOTE | 2023-04-13 15:17 | P.PN ---
Subjective Progress Note Date: 04/13/23 CHIEF COMPLAINT: Anemia HISTORY OF PRESENT ILLNESS: Patient status post EGD revealing gastritis. Colonoscopy aborted due to poor bowel prep. Patient has been having bowel movements. He denies any abdominal pain. He does complain of right hand pain. Hemoglobin stable at 8.1 PHYSICAL EXAM: VITAL SIGNS: Reviewed. GENERAL: Well-developed in no acute distress. ABDOMEN: Soft. Nondistended. Nontender. ASSESSMENT: 1. Anemia 2. Possible GI bleed 3. Status post EGD revealing gastritis PLAN: -Patient scheduled for colonoscopy on , 04/15/[address] cleary -Clear liquid diet starting tomorrow -Mag citrate ordered for bowel prep -Continue to monitor hemoglobin Physician Accident Examiner note has been reviewed by physician. Signing provider agrees with the documented findings, assessment, and plan of care. Objective - Vital Signs Vital signs: Vital Signs Temp 97.5 F L 04/13/23 11:32 Pulse 78 04/13/23 11:32 Resp 16 04/13/23 11:32 BP 129/71 04/13/23 11:32 Pulse Ox 100 04/13/23 11:32 FiO2 Intake & Output 04/12/23 04/13/23 04/13/23 18:59 06:59 18:59 Intake Total 100 Output Total 200 425 Balance -100 -425 Intake: IV 100 Output: Urine 200 425 Other: Voiding Method Urinal Urinal Urinal # Voids 5 4 # Bowel Movements 5 4 - Labs CBC & Chem 7: 04/13/23 09:28 04/13/23 09:28 Labs: Abnormal Lab Results - Last 24 Hours (Table) 04/13/23 04/13/23 Range/Units 09:28 09:28 RBC 2.82 L (4.30-5.90) m/uL Hgb 8.1 L (13.0-17.5) gm/dL Hct 25.7 L (39.0-53.0) % Chloride 108 H (98-107) mmol/L BUN 28 H (9-20) mg/dL Microbiology - Last 24 Hours (Table) 04/11/23 07:26 Blood Culture - Preliminary Blood
[2023-04-13] MEDS: predniSONE 20 MG TAB PO SCH (17:00)
[2023-04-13 20:28] LABS: Glucose,Whole Blood 208 mg/dL (70-110)
[2023-04-13] MEDS: TOPIRAMATE 25 MG TAB PO SCH (21:54)
[2023-04-13] MEDS: INSULIN DETEMIR (LEVEMIR) 100 UNIT/ML SYR SQ SCH (21:55)
[2023-04-13] MEDS: ATORVASTATIN 80 MG TAB PO SCH (21:59)
[2023-04-14 05:52] LABS: Glucose,Whole Blood 231 mg/dL (70-110)
[2023-04-14 07:20] LABS: Glucose,Whole Blood 213 mg/dL (70-110)
[2023-04-14] MEDS: IPRATROPIUM-ALBUTEROL 3 ML NEB INHALATION SCH ×4 (07:31→19:35)
[2023-04-14] MEDS: LACTOBACILLUS ACIDOPHILUS/PECT 1 EACH CAPSULE PO SCH ×2 (08:29→15:47)
[2023-04-14] MEDS: ASPIRIN 81 MG PO SCH (08:29)
[2023-04-14] MEDS: SUCRALFATE 1 GM TAB PO SCH ×4 (08:29→20:50)
[2023-04-14] MEDS: DICYCLOMINE 10 MG CAP PO SCH ×3 (08:30→15:47)
[2023-04-14] MEDS: PANTOPRAZOLE 40 MG/10 ML VIAL IVP SCH ×2 (08:35→20:51)
[2023-04-14 11:10] LABS: Basophils # (A) 0.01 X 10*3/uL (0.00-0.10); Basophils % (A) 0.1 %; Eosinophils # (A) 0 X 10*3/uL (0.04-0.35); Eosinophils % (A) 0 %; HCT 25.6 % (39.6-50.0); HGB 7.7 g/dL (13.0-17.0); Lymphocytes # (A) 0.52 X 10*3/uL (0.90-5.00); Lymphocytes % (A) 7.2 %; MCH 27.9 pg (27.0-32.0); MCHC 30.1 g/dL (32.0-37.0); MCV 92.8 FL (80.0-97.0); Mean Platelet Volume 9.9 FL (9.5-12.2); Monocytes # (A) 0.09 X 10*3/uL (0.20-1.00); Monocytes % (A) 1.3 %; NRBC Per 100 WBC 0 X 10*3/uL (0.00-0.01); Neutrophils # (A) 6.53 X 10*3/uL (1.80-7.70); Neutrophils % (A) 90.7 %; Platelet Count 299 X 10*3/uL (140-440); RBC 2.76 X 10*6/uL (4.40-5.60)
[2023-04-14 11:23] LABS: ALT 12 U/L (10-49); AST 13 U/L (14-35); Albumin 3.4 g/dL (3.8-4.9); Albumin/Globulin Ratio 1.17 Ratio (1.60-3.17); Alkaline Phosphatase 88 U/L (41-126); Blood Urea Nitrogen 22.1 mg/dL (9.0-27.0); Calcium 8.9 mg/dL (8.7-10.3); Chloride 106 mmol/L (96-109); Globulin 2.9 g/dL (1.6-3.3); Glucose 215 mg/dL (70-110); Potassium 4.6 mmol/L (3.5-5.5); Sodium 140 mmol/L (135-145); Total Bilirubin 0.2 mg/dL (0.3-1.2); Total Protein 6.3 g/dL (6.2-8.2)
[2023-04-14] MEDS: ISOSORBIDE MONONITRATE ER 30 MG TAB.ER.24H PO SCH (11:53)
[2023-04-14] MEDS: METOPROLOL TARTRATE 12.5 MG TAB PO SCH ×2 (11:53→20:49)
[2023-04-14] MEDS: predniSONE 20 MG TAB PO SCH (11:53)
[2023-04-14] MEDS: FAMOTIDINE 20 MG TAB PO SCH ×2 (11:54→20:50)
[2023-04-14] MEDS: FERROUS SULFATE 325 MG TAB PO SCH (11:54)
[2023-04-14] MEDS: metroNIDAZOLE 500 MG TAB PO SCH ×3 (11:54→20:49)
[2023-04-14 12:17] LABS: Glucose,Whole Blood 192 mg/dL (70-110)
[2023-04-14] MEDS ORDERED: PEG 3350 (236 GM/BTL) + LYTES 4,000 ML BOTTLE PO ONE (13:10)
--- NOTE | 2023-04-14 13:42 | P.PN ---
Subjective Progress Note Date: 04/14/23 67-year-old gentleman with past medical history significant for hypertension, hyperlipidemia, diabetes, CAD, cardiomyopathy with an ejection fraction of 25- 30% who was sent to ER from [facility] for abnormal labs. Patient had blood work done at a facility and was found to have a low hemoglobin level of 6.3. Patient denies any complaint of any blood in the stool. There was no complain of any nausea or vomiting or any hematemesis. Denies any abdominal pain. Patient has a wound on his left leg with wound VAC that he thinks he picked and was bleeding. Denies any chest pain or shortness of breath. He was no complain of lightheadedness or dizziness. Because of these abnormal labs, patient was sent to the ER Initial lab work done in the ER showed WBC 8.7, hemoglobin 7, platelet count 317, sodium 140, potassium 4, BUN 81, creatinine 1.34, glucose 161, FOBT positive Patient admitted to internal medicine service 04/11. Patient seen and examined. WBC 9.4, hemoglobin 8.1, sodium is 142, potassium was 4.1, BUN is 62, creatinine is 1.43. Denies any lightheadedness or dizziness. Wound VAC in place. 04/12/23. Patient seen and examined. Laying comfortably in the bed. Patient EGD done this morning, showed gastritis. 1/2. Patient seen and examined. Complaining of pain in his right hand. Feels like a spasm. We'll check calcium and uric acid levels 1/3. Patient seen and examined. Pain in the joints of his hand has improved. Uric acid level was elevated. Surgery planning colonoscopy on REVIEW OF SYSTEMS: CONSTITUTIONAL: No fever, no malaise,. CARDIOVASCULAR: No chest pain, no palpitations, no syncope. PULMONARY: No shortness of breath, no cough, GASTROINTESTINAL: No diarrhea, no nausea, no vomiting, no abdominal pain. NEUROLOGICAL: No headaches, no weakness, PHYSICAL EXAMINATION: GENERAL: The patient is alert and oriented x3, not in any acute distress. Well developed, well nourished. HEENT: Pupils are round and equally reacting to light. EOMI. No scleral icterus. No conjunctival pallor. Normocephalic, atraumatic. No pharyngeal erythema. No thyromegaly. CARDIOVASCULAR: S1 and S2 present. No murmurs, rubs, or gallops. PULMONARY: Chest is clear to auscultation, no wheezing or crackles. ABDOMEN: Soft, nontender, nondistended, normoactive bowel sounds. No palpable organomegaly. MUSCULOSKELETAL: Left foot wound VAC seen EXTREMITIES: No cyanosis, clubbing, or pedal edema. NEUROLOGICAL: Gross neurological examination did not reveal any focal deficits. SKIN: No rashes. 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 hypertension hyperlipidemia Hyperuricemia Acute gout COPD chronic hypoxic respiratory failure on home O2 Diabetes mellitus Monitor vital signs Monitor CBC Monitor CMP Continue telemetry monitoring continue aspirin and Plavix Continue IV Protonix Continue Carafate Continue IV cefazolin and Flagyl Continue prednisone and colchicine Patient received 1 unit of packed red blood cell in the ER Surgery consulted, no GI coverage at this time, EGD done showed gastritis, surgery planning colonoscopy tomorrow ID following In regards to hypertension, Lopressor and Imdur Regards to hyperlipidemia , Lipitor In regards to acute anemia,continue to monitor H&H transfuse for hemodynamic instability or hemoglobin less than 7 In regards to diabetes mellitus, continue current insulin regimen Labs and medication were reviewed.. Continue same treatment. Continue with symptomatic treatment. Resume home medication. Monitor labs and vitals. DVT and GI prophylaxis. Further recommendations as per clinical course of the patient Dictation was produced using [employer] dictation software. please excuse any grammatical, word or spelling errors. Objective - Vital Signs Vital signs: Vital Signs Temp 97.6 F 04/14/23 12:15 Pulse 80 04/14/23 12:56 Resp 18 04/14/23 12:15 BP 149/78 04/14/23 12:15 Pulse Ox 100 04/14/23 12:15 FiO2 Intake & Output 04/13/23 04/14/23 04/14/23 18:59 06:59 18:59 Output Total 425 250 Balance -425 -250 Output: Urine 425 250 Other: Voiding Method Urinal Urinal Urinal # Voids 3 1 # Bowel Movements 1 - Labs CBC & Chem 7: 04/14/23 06:11 04/14/23 06:11 Labs: Abnormal Lab Results - Last 24 Hours (Table) 04/10/23 04/13/23 04/13/23 Range/Units 10:32 12:44 20:25 RBC (4.40-5.60) X 10*6/uL Hgb (13.0-17.0) g/dL Hct (39.6-50.0) % MCHC (32.0-37.0) g/dL RDW (11.5-14.5) % Immature Gran # (0.00-0.04) X 10*3/uL Lymphocytes # (0.90-5.00) X 10*3/uL Monocytes # (0.20-1.00) X 10*3/uL Eosinophils # (0.04-0.35) X 10*3/uL BUN/Creatinine Ratio (12.00-20.00) Ratio Glucose (70-110) mg/dL POC Glucose (mg/dL) 208 H (70-110) mg/dL Uric Acid 11.5 H (3.7-8.7) mg/dL Total Bilirubin (0.3-1.2) mg/dL AST (14-35) U/L Albumin (3.8-4.9) g/dL Albumin/Globulin Ratio (1.60-3.17) Ratio RBC Folate 935 H (280 - 791) ng/mL 04/14/23 04/14/23 04/14/23 Range/Units 05:50 06:11 06:11 RBC 2.76 L (4.40-5.60) X 10*6/uL Hgb 7.7 L (13.0-17.0) g/dL Hct 25.6 L (39.6-50.0) % MCHC 30.1 L (32.0-37.0) g/dL RDW 15.0 H (11.5-14.5) % Immature Gran # 0.05 H (0.00-0.04) X 10*3/uL Lymphocytes # 0.52 L (0.90-5.00) X 10*3/uL Monocytes # 0.09 L (0.20-1.00) X 10*3/uL Eosinophils # 0 L (0.04-0.35) X 10*3/uL BUN/Creatinine Ratio 22.10 H (12.00-20.00) Ratio Glucose 215 H (70-110) mg/dL POC Glucose (mg/dL) 231 H (70-110) mg/dL Uric Acid (3.7-8.7) mg/dL Total Bilirubin 0.2 L (0.3-1.2) mg/dL AST 13 L (14-35) U/L Albumin 3.4 L (3.8-4.9) g/dL Albumin/Globulin Ratio 1.17 L (1.60-3.17) Ratio RBC Folate (280 - 791) ng/mL 04/14/23 04/14/23 Range/Units 07:19 12:16 RBC (4.40-5.60) X 10*6/uL Hgb (13.0-17.0) g/dL Hct (39.6-50.0) % MCHC (32.0-37.0) g/dL RDW (11.5-14.5) % Immature Gran # (0.00-0.04) X 10*3/uL Lymphocytes # (0.90-5.00) X 10*3/uL Monocytes # (0.20-1.00) X 10*3/uL Eosinophils # (0.04-0.35) X 10*3/uL BUN/Creatinine Ratio (12.00-20.00) Ratio Glucose (70-110) mg/dL POC Glucose (mg/dL) 213 H 192 H (70-110) mg/dL Uric Acid (3.7-8.7) mg/dL Total Bilirubin (0.3-1.2) mg/dL AST (14-35) U/L Albumin (3.8-4.9) g/dL Albumin/Globulin Ratio (1.60-3.17) Ratio RBC Folate (280 - 791) ng/mL Microbiology - Last 24 Hours (Table) 04/11/23 07:26 Blood Culture - Preliminary Blood
[2023-04-14] MEDS: COLCHICINE 0.6 MG EACH PO SCH ×2 (14:21→20:49)
--- NOTE | 2023-04-14 15:27 | P.PN ---
Subjective Progress Note Date: 04/14/23 CHIEF COMPLAINT: Anemia HISTORY OF PRESENT ILLNESS: Patient status post EGD revealing gastritis. Colonoscopy aborted due to poor bowel prep. Patient's bowel movements are still not clear even after the mag citrate. Hemoglobin down from 8.1-7.7 PHYSICAL EXAM: VITAL SIGNS: Reviewed. GENERAL: Well-developed in no acute distress. ABDOMEN: Soft. Nondistended. Nontender. ASSESSMENT: 1. Anemia 2. Possible GI bleed 3. Status post EGD revealing gastritis PLAN: -Patient rescheduled for colonoscopy tomorrow with Dr. Omid Sauceda bowel prep ordered for today -Continue clear liquid diet -Nothing by mouth after midnight Physician Manager Retail note has been reviewed by physician. Signing provider agrees with the documented findings, assessment, and plan of care. Objective - Vital Signs Vital signs: Vital Signs Temp 97.6 F 04/14/23 12:15 Pulse 80 04/14/23 12:56 Resp 18 04/14/23 12:15 BP 149/78 04/14/23 12:15 Pulse Ox 100 04/14/23 12:15 FiO2 Intake & Output 04/13/23 04/14/23 04/14/23 18:59 06:59 18:59 Output Total 425 250 Balance -425 -250 Output: Urine 425 250 Other: Voiding Method Urinal Urinal # Voids 3 1 # Bowel Movements 1 - Labs CBC & Chem 7: 04/14/23 06:11 04/14/23 06:11 Labs: Abnormal Lab Results - Last 24 Hours (Table) 04/10/23 04/13/23 04/13/23 Range/Units 10:32 12:44 20:25 RBC (4.40-5.60) X 10*6/uL Hgb (13.0-17.0) g/dL Hct (39.6-50.0) % MCHC (32.0-37.0) g/dL RDW (11.5-14.5) % Immature Gran # (0.00-0.04) X 10*3/uL Lymphocytes # (0.90-5.00) X 10*3/uL Monocytes # (0.20-1.00) X 10*3/uL Eosinophils # (0.04-0.35) X 10*3/uL BUN/Creatinine Ratio (12.00-20.00) Ratio Glucose (70-110) mg/dL POC Glucose (mg/dL) 208 H (70-110) mg/dL Uric Acid 11.5 H (3.7-8.7) mg/dL Total Bilirubin (0.3-1.2) mg/dL AST (14-35) U/L Albumin (3.8-4.9) g/dL Albumin/Globulin Ratio (1.60-3.17) Ratio RBC Folate 935 H (280 - 791) ng/mL 04/14/23 04/14/23 04/14/23 Range/Units 05:50 06:11 06:11 RBC 2.76 L (4.40-5.60) X 10*6/uL Hgb 7.7 L (13.0-17.0) g/dL Hct 25.6 L (39.6-50.0) % MCHC 30.1 L (32.0-37.0) g/dL RDW 15.0 H (11.5-14.5) % Immature Gran # 0.05 H (0.00-0.04) X 10*3/uL Lymphocytes # 0.52 L (0.90-5.00) X 10*3/uL Monocytes # 0.09 L (0.20-1.00) X 10*3/uL Eosinophils # 0 L (0.04-0.35) X 10*3/uL BUN/Creatinine Ratio 22.10 H (12.00-20.00) Ratio Glucose 215 H (70-110) mg/dL POC Glucose (mg/dL) 231 H (70-110) mg/dL Uric Acid (3.7-8.7) mg/dL Total Bilirubin 0.2 L (0.3-1.2) mg/dL AST 13 L (14-35) U/L Albumin 3.4 L (3.8-4.9) g/dL Albumin/Globulin Ratio 1.17 L (1.60-3.17) Ratio RBC Folate (280 - 791) ng/mL 04/14/23 04/14/23 Range/Units 07:19 12:16 RBC (4.40-5.60) X 10*6/uL Hgb (13.0-17.0) g/dL Hct (39.6-50.0) % MCHC (32.0-37.0) g/dL RDW (11.5-14.5) % Immature Gran # (0.00-0.04) X 10*3/uL Lymphocytes # (0.90-5.00) X 10*3/uL Monocytes # (0.20-1.00) X 10*3/uL Eosinophils # (0.04-0.35) X 10*3/uL BUN/Creatinine Ratio (12.00-20.00) Ratio Glucose (70-110) mg/dL POC Glucose (mg/dL) 213 H 192 H (70-110) mg/dL Uric Acid (3.7-8.7) mg/dL Total Bilirubin (0.3-1.2) mg/dL AST (14-35) U/L Albumin (3.8-4.9) g/dL Albumin/Globulin Ratio (1.60-3.17) Ratio RBC Folate (280 - 791) ng/mL Microbiology - Last 24 Hours (Table) 04/11/23 07:26 Blood Culture - Preliminary Blood
[2023-04-14 17:10] LABS: Glucose,Whole Blood 188 mg/dL (70-110)
[2023-04-14] MEDS ORDERED: DEXTROSE 50% SYRINGE 50 ML IVP PRN ×2 (17:44)
[2023-04-14 20:19] LABS: Glucose,Whole Blood 314 mg/dL (70-110)
[2023-04-14] MEDS: TOPIRAMATE 25 MG TAB PO SCH (20:49)
[2023-04-14] MEDS: ATORVASTATIN 80 MG TAB PO SCH (20:50)
[2023-04-14] MEDS: INSULIN DETEMIR (LEVEMIR) 100 UNIT/ML SYR SQ SCH (20:51)
[2023-04-14] MEDS: INSULIN ASPART (NovoLOG) 100 UNIT/ML VIAL SQ SCH (20:51)
[2023-04-15 06:16] LABS: Basophils % (A) 0 %; Eosinophils % (A) 0 %; HCT 23.3 % (39.0-53.0); HGB 7.6 gm/dL (13.0-17.5); Hypochromasia Moderate; Lymphocytes % (A) 11 %; MCH 29.5 pg (25.0-35.0); MCHC 32.8 g/dL (31.0-37.0); MCV 89.9 fL (80.0-100.0); Mean Platelet Volume 7.9; Monocytes # (A) 0.3 k/uL (0-1.0); Monocytes % (A) 3 %; Neutrophils # (A) 8.1 k/uL (1.3-7.7); Neutrophils % (A) 85 %; Platelet Count 294 k/uL (150-450); RBC 2.59 m/uL (4.30-5.90); RDW 14.9 % (11.5-15.5); WBC 9.5 k/uL (3.8-10.6)
[2023-04-15 06:52] LABS: African American GFR (CKD) >90 (>60 ml/min/1.73 sqM); Anion Gap 9 mmol/L; Blood Urea Nitrogen 19 mg/dL (9-20); Calcium 8.5 mg/dL (8.4-10.2); Carbon Dioxide 25 mmol/L (22-30); Chloride 106 mmol/L (98-107); Glucose 122 mg/dL (74-99); Non-African American GFR(CKD) >90 (>60 ml/min/1.73 sqM); Sodium 140 mmol/L (137-145)
[2023-04-15 08:07] LABS: Glucose,Whole Blood 123 mg/dL (70-110)
[2023-04-15] MEDS: IPRATROPIUM-ALBUTEROL 3 ML NEB INHALATION SCH ×4 (08:19→18:43)
[2023-04-15] MEDS: INSULIN ASPART (NovoLOG) 100 UNIT/ML VIAL SQ SCH ×4 (08:26→20:58)
[2023-04-15] MEDS: PANTOPRAZOLE 40 MG/10 ML VIAL IVP SCH ×2 (08:31→19:50)
[2023-04-15] MEDS: HYDROcodone/APAP 5-325MG 1 EACH TAB PO PRN ×2 (08:31→19:49)
[2023-04-15] MEDS: METOPROLOL TARTRATE 12.5 MG TAB PO SCH ×2 (08:31→19:50)
[2023-04-15] MEDS: LACTOBACILLUS ACIDOPHILUS/PECT 1 EACH CAPSULE PO SCH ×2 (08:31→18:04)
[2023-04-15] MEDS: ISOSORBIDE MONONITRATE ER 30 MG TAB.ER.24H PO SCH (08:31)
[2023-04-15] MEDS: DICYCLOMINE 10 MG CAP PO SCH ×3 (08:31→18:04)
[2023-04-15] MEDS: predniSONE 20 MG TAB PO SCH (08:31)
[2023-04-15] MEDS: ASPIRIN 81 MG PO SCH (08:32)
[2023-04-15] MEDS: FAMOTIDINE 20 MG TAB PO SCH ×2 (08:32→19:50)
[2023-04-15] MEDS: metroNIDAZOLE 500 MG TAB PO SCH ×3 (08:32→20:58)
[2023-04-15] MEDS: FERROUS SULFATE 325 MG TAB PO SCH (08:32)
[2023-04-15] MEDS: SUCRALFATE 1 GM TAB PO SCH ×4 (08:33→20:58)
[2023-04-15] MEDS: COLCHICINE 0.6 MG EACH PO SCH ×2 (08:33→19:49)
--- NOTE | 2023-04-15 10:35 | P.PN ---
Subjective Progress Note Date: 04/15/23 CHIEF COMPLAINT: Anemia HISTORY OF PRESENT ILLNESS: Patient status post EGD revealing gastritis. Colonoscopy aborted due to poor bowel prep. Patient's bowel movements are more transparent after the GoLYTELY bowel prep. Vitals stable. WBC 9.5 Hgb 7.6 plt 294 k 4.0 PHYSICAL EXAM: VITAL SIGNS: Reviewed. GENERAL: Well-developed in no acute distress. ABDOMEN: Soft. Nondistended. Nontender. ASSESSMENT: 1. Anemia 2. Possible GI bleed 3. Status post EGD revealing gastritis PLAN: -Patient rescheduled for colonoscopy today with Dr. Anne Physician Legal Collector note has been reviewed by physician. Signing provider agrees with the documented findings, assessment, and plan of care. Objective - Vital Signs Vital signs: Vital Signs Temp 98.3 F 04/15/23 07:25 Pulse 95 04/15/23 08:32 Resp 16 04/15/23 07:25 BP 136/74 04/15/23 07:25 Pulse Ox 98 04/15/23 08:19 FiO2 Intake & Output 04/14/23 04/15/23 04/15/23 18:59 06:59 18:59 Output Total 250 300 Balance -250 -300 Output: Urine 250 300 Other: Voiding Method Urinal Bedside Commode Bedside Commode Urinal Urinal # Voids 1 4 # Bowel Movements 2 3 1 - Labs CBC & Chem 7: 04/15/23 05:53 04/15/23 05:50 Labs: Abnormal Lab Results - Last 24 Hours (Table) 04/14/23 04/14/23 04/14/23 Range/Units 06:11 06:11 12:16 RBC 2.76 L (4.40-5.60) X 10*6/uL Hgb 7.7 L (13.0-17.0) g/dL Hct 25.6 L (39.6-50.0) % MCHC 30.1 L (32.0-37.0) g/dL RDW 15.0 H (11.5-14.5) % Immature Gran # 0.05 H (0.00-0.04) X 10*3/uL Neutrophils # (1.3-7.7) k/uL Lymphocytes # 0.52 L (0.90-5.00) X 10*3/uL Monocytes # 0.09 L (0.20-1.00) X 10*3/uL Eosinophils # 0 L (0.04-0.35) X 10*3/uL BUN/Creatinine Ratio 22.10 H (12.00-20.00) Ratio Glucose 215 H (70-110) mg/dL POC Glucose (mg/dL) 192 H (70-110) mg/dL Total Bilirubin 0.2 L (0.3-1.2) mg/dL AST 13 L (14-35) U/L Albumin 3.4 L (3.8-4.9) g/dL Albumin/Globulin Ratio 1.17 L (1.60-3.17) Ratio 04/14/23 04/14/23 04/15/23 Range/Units 16:54 20:16 05:50 RBC (4.40-5.60) X 10*6/uL Hgb (13.0-17.0) g/dL Hct (39.6-50.0) % MCHC (32.0-37.0) g/dL RDW (11.5-14.5) % Immature Gran # (0.00-0.04) X 10*3/uL Neutrophils # (1.3-7.7) k/uL Lymphocytes # (0.90-5.00) X 10*3/uL Monocytes # (0.20-1.00) X 10*3/uL Eosinophils # (0.04-0.35) X 10*3/uL BUN/Creatinine Ratio (12.00-20.00) Ratio Glucose 122 H (70-110) mg/dL POC Glucose (mg/dL) 188 H 314 H (70-110) mg/dL Total Bilirubin (0.3-1.2) mg/dL AST (14-35) U/L Albumin (3.8-4.9) g/dL Albumin/Globulin Ratio (1.60-3.17) Ratio 04/15/23 04/15/23 Range/Units 05:53 08:05 RBC 2.59 L (4.40-5.60) X 10*6/uL Hgb 7.6 L (13.0-17.0) g/dL Hct 23.3 L (39.6-50.0) % MCHC (32.0-37.0) g/dL RDW (11.5-14.5) % Immature Gran # (0.00-0.04) X 10*3/uL Neutrophils # 8.1 H (1.3-7.7) k/uL Lymphocytes # (0.90-5.00) X 10*3/uL Monocytes # (0.20-1.00) X 10*3/uL Eosinophils # (0.04-0.35) X 10*3/uL BUN/Creatinine Ratio (12.00-20.00) Ratio Glucose (70-110) mg/dL POC Glucose (mg/dL) 123 H (70-110) mg/dL Total Bilirubin (0.3-1.2) mg/dL AST (14-35) U/L Albumin (3.8-4.9) g/dL Albumin/Globulin Ratio (1.60-3.17) Ratio Microbiology - Last 24 Hours (Table) 04/11/23 07:26 Blood Culture - Preliminary Blood
[2023-04-15 11:57] LABS: Glucose,Whole Blood 124 mg/dL (70-110)
[2023-04-15] MEDS ORDERED: PROPOFOL 10 MG/ML 20 ML VIAL IV ONE (12:32)
[2023-04-15] MEDS ORDERED: IV FLUID CONTINUATION 1,000 ML IV ONE (12:32)
--- NOTE | 2023-04-15 12:50 | P.OP ---
Date of Procedure: 04/15/23 Preoperative Diagnosis: GI bleed Postoperative Diagnosis: Normal colonoscopy Procedure(s) Performed: Colonoscopy Anesthesia: MAC Surgeon: Anselmo Anne Pathology: none sent Condition: stable Disposition: PACU Description of Procedure: The patient's placed on the endoscopy table in the lateral position. He received IV sedation. Digital rectal exam was performed. This revealed no abnormalities. The flexible colonoscope was then placed patient anus and passed throughout the colon. The patient had a large amount of liquid stool throughout colon. The scope was advanced to the level of the right colon. Events any further secondary to a large amount liquid stool. Scope withdrawn. The visualized right colon appeared normal. The transverse colon, descending colon appeared normal. The sigmoid colon had a few scattered diverticula. Scope was brought back the rectum and this appeared normal. Scope withdrawn for patient. There is no evidence of E active GI bleed.
--- NOTE | 2023-04-15 14:26 | P.PN ---
Subjective Progress Note Date: 04/15/23 67-year-old gentleman with past medical history significant for hypertension, hyperlipidemia, diabetes, CAD, cardiomyopathy with an ejection fraction of 25- 30% who was sent to ER from [facility] for abnormal labs. Patient had blood work done at a facility and was found to have a low hemoglobin level of 6.3. Patient denies any complaint of any blood in the stool. There was no complain of any nausea or vomiting or any hematemesis. Denies any abdominal pain. Patient has a wound on his left leg with wound VAC that he thinks he picked and was bleeding. Denies any chest pain or shortness of breath. He was no complain of lightheadedness or dizziness. Because of these abnormal labs, patient was sent to the ER Initial lab work done in the ER showed WBC 8.7, hemoglobin 7, platelet count 317, sodium 140, potassium 4, BUN 81, creatinine 1.34, glucose 161, FOBT positive Patient admitted to internal medicine service 04/11. Patient seen and examined. WBC 9.4, hemoglobin 8.1, sodium is 142, potassium was 4.1, BUN is 62, creatinine is 1.43. Denies any lightheadedness or dizziness. Wound VAC in place. 04/12/23. Patient seen and examined. Laying comfortably in the bed. Patient EGD done this morning, showed gastritis. /2. Patient seen and examined. Complaining of pain in his right hand. Feels like a spasm. We'll check calcium and uric acid levels /3. Patient seen and examined. Pain in the joints of his hand has improved. Uric acid level was elevated. Surgery planning colonoscopy on 04/15. Patient seen and examined. Patient has voiced thoughts of hurting himself to the nursing staff, stated that there are ways to kill himself by jumping out of the window or using oxygen tank. Denies any auditory or visual hallucinations REVIEW OF SYSTEMS: CONSTITUTIONAL: No fever, no malaise,. CARDIOVASCULAR: No chest pain, no palpitations, no syncope. PULMONARY: No shortness of breath, no cough, GASTROINTESTINAL: No diarrhea, no nausea, no vomiting, no abdominal pain. NEUROLOGICAL: No headaches, no weakness, PHYSICAL EXAMINATION: GENERAL: The patient is alert and oriented x3, not in any acute distress. Well developed, well nourished. HEENT: Pupils are round and equally reacting to light. EOMI. No scleral icterus. No conjunctival pallor. Normocephalic, atraumatic. No pharyngeal erythema. No thyromegaly. CARDIOVASCULAR: S1 and S2 present. No murmurs, rubs, or gallops. PULMONARY: Chest is clear to auscultation, no wheezing or crackles. ABDOMEN: Soft, nontender, nondistended, normoactive bowel sounds. No palpable organomegaly. MUSCULOSKELETAL: Left foot wound VAC seen EXTREMITIES: No cyanosis, clubbing, or pedal edema. NEUROLOGICAL: Gross neurological examination did not reveal any focal deficits. SKIN: No rashes. 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 hypertension hyperlipidemia Hyperuricemia Acute gout COPD chronic hypoxic respiratory failure on home O2 Diabetes mellitus Monitor vital signs Monitor CBC Monitor CMP Continue telemetry monitoring Suicide precautions One-on-one sitter continue aspirin and Plavix Continue IV Protonix Continue Carafate Continue IV cefazolin and Flagyl Continue prednisone and colchicine for acute gout Patient received 1 unit of packed red blood cell in the ER Surgery consulted, no GI coverage at this time, EGD done showed gastritis, colonoscopy done today was normal Psych consulted ID following In regards to hypertension, Lopressor and Imdur Regards to hyperlipidemia , Lipitor In regards to acute anemia,continue to monitor H&H transfuse for hemodynamic instability or hemoglobin less than 7 In regards to diabetes mellitus, continue current insulin regimen Labs and medication were reviewed.. Continue same treatment. Continue with symptomatic treatment. Resume home medication. Monitor labs and vitals. DVT and GI prophylaxis. Further recommendations as per clinical course of the patient Dictation was produced using [employer] dictation software. please excuse any grammatical, word or spelling errors. Objective - Vital Signs Vital signs: Vital Signs Temp 98.0 F 04/15/23 11:53 Pulse 84 04/15/23 11:53 Resp 16 04/15/23 11:53 BP 146/79 04/15/23 11:53 Pulse Ox 99 04/15/23 11:53 FiO2 Intake & Output 04/14/23 04/15/23 04/15/23 18:59 06:59 18:59 Intake Total 100 Output Total 250 300 Balance -250 -300 100 Weight 117.027 kg Intake: IV 100 Output: Urine 250 300 Other: Voiding Method Urinal Bedside Commode Bedside Commode Urinal Urinal # Voids 1 4 # Bowel Movements 2 3 1 - Labs CBC & Chem 7: 04/15/23 05:53 04/15/23 05:50 Labs: Abnormal Lab Results - Last 24 Hours (Table) 04/14/23 04/14/23 04/15/23 Range/Units 16:54 20:16 05:50 RBC (4.30-5.90) m/uL Hgb (13.0-17.5) gm/dL Hct (39.0-53.0) % Neutrophils # (1.3-7.7) k/uL Glucose 122 H (74-99) mg/dL POC Glucose (mg/dL) 188 H 314 H (70-110) mg/dL 04/15/23 04/15/23 04/15/23 Range/Units 05:53 08:05 11:54 RBC 2.59 L (4.30-5.90) m/uL Hgb 7.6 L (13.0-17.5) gm/dL Hct 23.3 L (39.0-53.0) % Neutrophils # 8.1 H (1.3-7.7) k/uL Glucose (74-99) mg/dL POC Glucose (mg/dL) 123 H 124 H (70-110) mg/dL Microbiology - Last 24 Hours (Table) 04/11/23 07:26 Blood Culture - Preliminary Blood
--- NOTE | 2023-04-15 17:12 | P.PN ---
Subjective Progress Note Date: 04/14/23 Principal diagnosis: Reason for follow-up is left diabetic foot ulcer with recent culture positive for MSSA and anaerobes Patient is a 67-year-old male with a past medical history significant for hypertension hyperlipidemia [place] diabetes mellitus dementia patient was rece ntly admitted to this facility with left fifth toe gangrene status post amputation he did have a Morganella bacteremia at that point the patient completed his antibiotic therapy patient to follow at [facility] apparently the patient have a culture done on 03/24/2023 that grew MSSA and anaerobes patient not very clear if he received any treatment for the presenting to the hospital with hemoglobin of 6.3 On today's evaluation that is 04/14/2023 the patient continues to be afebrile the patient is breathing comfortably on room air patient denies any chest pain shortness of breath or cough no nausea vomiting no abdominal pain or pain to the left lower extremity. Patient did have white count of 7.20, creatinine is 1.0 Objective - Vital Signs Vital signs: Vital Signs Temp 98.4 F 04/14/23 07:18 Pulse 72 04/14/23 07:41 Resp 18 04/14/23 07:18 BP 137/74 04/14/23 07:18 Pulse Ox 99 04/14/23 07:18 FiO2 Intake & Output 04/13/23 04/14/23 04/14/23 18:59 06:59 18:59 Output Total 425 250 Balance -425 -250 Output: Urine 425 250 Other: Voiding Method Urinal Urinal # Voids 3 1 # Bowel Movements 1 - Exam GENERAL DESCRIPTION: An elderly male lying in bed in no distress RESPIRATORY SYSTEM: Unlabored breathing , decreased breath sounds at bases HEART: S1 S2 regular rate and rhythm , ABDOMEN: Soft , no tenderness EXTREMITIES: Left fifth toe amputation site wound is covered with a wound VAC - Labs CBC & Chem 7: 04/15/23 05:53 04/15/23 05:50 Labs: Abnormal Lab Results - Last 24 Hours (Table) 04/10/23 04/13/23 04/13/23 Range/Units 10:32 12:44 20:25 RBC (4.40-5.60) X 10*6/uL Hgb (13.0-17.0) g/dL Hct (39.6-50.0) % MCHC (32.0-37.0) g/dL RDW (11.5-14.5) % Immature Gran # (0.00-0.04) X 10*3/uL Lymphocytes # (0.90-5.00) X 10*3/uL Monocytes # (0.20-1.00) X 10*3/uL Eosinophils # (0.04-0.35) X 10*3/uL BUN/Creatinine Ratio (12.00-20.00) Ratio Glucose (70-110) mg/dL POC Glucose (mg/dL) 208 H (70-110) mg/dL Uric Acid 11.5 H (3.7-8.7) mg/dL Total Bilirubin (0.3-1.2) mg/dL AST (14-35) U/L Albumin (3.8-4.9) g/dL Albumin/Globulin Ratio (1.60-3.17) Ratio RBC Folate 935 H (280 - 791) ng/mL 04/14/23 04/14/23 04/14/23 Range/Units 05:50 06:11 06:11 RBC 2.76 L (4.40-5.60) X 10*6/uL Hgb 7.7 L (13.0-17.0) g/dL Hct 25.6 L (39.6-50.0) % MCHC 30.1 L (32.0-37.0) g/dL RDW 15.0 H (11.5-14.5) % Immature Gran # 0.05 H (0.00-0.04) X 10*3/uL Lymphocytes # 0.52 L (0.90-5.00) X 10*3/uL Monocytes # 0.09 L (0.20-1.00) X 10*3/uL Eosinophils # 0 L (0.04-0.35) X 10*3/uL BUN/Creatinine Ratio 22.10 H (12.00-20.00) Ratio Glucose 215 H (70-110) mg/dL POC Glucose (mg/dL) 231 H (70-110) mg/dL Uric Acid (3.7-8.7) mg/dL Total Bilirubin 0.2 L (0.3-1.2) mg/dL AST 13 L (14-35) U/L Albumin 3.4 L (3.8-4.9) g/dL Albumin/Globulin Ratio 1.17 L (1.60-3.17) Ratio RBC Folate (280 - 791) ng/mL 04/14/23 04/14/23 Range/Units 07:19 12:16 RBC (4.40-5.60) X 10*6/uL Hgb (13.0-17.0) g/dL Hct (39.6-50.0) % MCHC (32.0-37.0) g/dL RDW (11.5-14.5) % Immature Gran # (0.00-0.04) X 10*3/uL Lymphocytes # (0.90-5.00) X 10*3/uL Monocytes # (0.20-1.00) X 10*3/uL Eosinophils # (0.04-0.35) X 10*3/uL BUN/Creatinine Ratio (12.00-20.00) Ratio Glucose (70-110) mg/dL POC Glucose (mg/dL) 213 H 192 H (70-110) mg/dL Uric Acid (3.7-8.7) mg/dL Total Bilirubin (0.3-1.2) mg/dL AST (14-35) U/L Albumin (3.8-4.9) g/dL Albumin/Globulin Ratio (1.60-3.17) Ratio RBC Folate (280 - 791) ng/mL Microbiology - Last 24 Hours (Table) 04/11/23 07:26 Blood Culture - Preliminary Blood Assessment and Plan (1) MSSA (methicillin susceptible Staphylococcus aureus) infection Current Visit: Yes Status: Acute Code(s): A49.01 - METHICILLIN SUSCEP STAPH INFECTION, UNSP SITE SNOMED Code(s): 842591370 (2) Diabetic infection of left foot Current Visit: No Status: Acute Code(s): E11.628 - TYPE 2 DIABETES MELLITUS WITH OTHER SKIN COMPLICATIONS; L08.9 - LOCAL INFECTION OF THE SKIN AND SUBCUTANEOUS TISSUE, UNSP SNOMED Code(s): 32113035 (3) Type 2 diabetes mellitus with foot ulcer Current Visit: No Status: Acute Code(s): E11.621 - TYPE 2 DIABETES MELLITUS WITH FOOT ULCER; L97.509 - NON-PRESSURE CHRONIC ULCER OTH PRT UNSP FOOT W UNSP SEVERITY SNOMED Code(s): 445939557 Plan: 1patient with a chronic nonhealing wound to the left foot lateral border in this patient who did have a history of left fifth toe gangrene status post amputation back on February 09, 2023 at that point he did have Morganella bacteremia and local culture positive for Enterococcus and Morganella for the patient has completed course of IV antibiotic therapy, patient now with a nonhealing wound and he did have a culture from the same area growing MSSA and anaerobic gram-positive cocci 2patient did have mild elevated inflammatory markers with a sed rate of 42. 3patient to continue with the cefazolin and Flagyl local wound care with a wound VAC recommending a PICC line for outpatient IV antibiotics Dictation was produced using [employer] dictation software. please excuse any grammatical, word or spelling errors. Time with Patient: Less than 30
--- NOTE | 2023-04-15 17:14 | P.PN ---
Subjective Progress Note Date: 04/15/23 Principal diagnosis: Reason for follow-up is left diabetic foot ulcer with recent culture positive for MSSA and anaerobes Patient is a 67-year-old male with a past medical history significant for hypertension hyperlipidemia [place] diabetes mellitus dementia patient was rece ntly admitted to this facility with left fifth toe gangrene status post amputation he did have a Morganella bacteremia at that point the patient completed his antibiotic therapy patient to follow at [facility] apparently the patient have a culture done on 03/24/2023 that grew MSSA and anaerobes patient not very clear if he received any treatment for the presenting to the hospital with hemoglobin of 6.3 On today's evaluation that is04/15/2023 the patient remains to be afebrile the p atient is breathing comfortably on room air patient denies any chest pain shortness of breath did have occasional dry cough, the patient denies having any nausea vomiting no abdominal pain or pain to the left lower extremity. Patient did have white count of 9.5, creatinine 0.89 Objective - Vital Signs Vital signs: Vital Signs Temp 98.0 F 04/15/23 11:53 Pulse 84 04/15/23 11:53 Resp 16 04/15/23 11:53 BP 146/79 04/15/23 11:53 Pulse Ox 99 04/15/23 11:53 FiO2 Intake & Output 04/14/23 04/15/23 04/15/23 18:59 06:59 18:59 Intake Total 100 Output Total 250 300 Balance -250 -300 100 Weight 117.027 kg Intake: IV 100 Output: Urine 250 300 Other: Voiding Method Urinal Bedside Commode Bedside Commode Urinal Urinal # Voids 1 4 # Bowel Movements 2 3 1 - Exam GENERAL DESCRIPTION: An elderly male lying in bed in no distress RESPIRATORY SYSTEM: Unlabored breathing , decreased breath sounds at bases HEART: S1 S2 regular rate and rhythm , ABDOMEN: Soft , no tenderness EXTREMITIES: Left fifth toe amputation site wound is covered with a wound VAC - Labs CBC & Chem 7: 04/15/23 05:53 04/15/23 05:50 Labs: Abnormal Lab Results - Last 24 Hours (Table) 04/14/23 04/14/23 04/15/23 Range/Units 16:54 20:16 05:50 RBC (4.30-5.90) m/uL Hgb (13.0-17.5) gm/dL Hct (39.0-53.0) % Neutrophils # (1.3-7.7) k/uL Glucose 122 H (74-99) mg/dL POC Glucose (mg/dL) 188 H 314 H (70-110) mg/dL 04/15/23 04/15/23 04/15/23 Range/Units 05:53 08:05 11:54 RBC 2.59 L (4.30-5.90) m/uL Hgb 7.6 L (13.0-17.5) gm/dL Hct 23.3 L (39.0-53.0) % Neutrophils # 8.1 H (1.3-7.7) k/uL Glucose (74-99) mg/dL POC Glucose (mg/dL) 123 H 124 H (70-110) mg/dL Microbiology - Last 24 Hours (Table) 04/11/23 07:26 Blood Culture - Preliminary Blood Assessment and Plan (1) MSSA (methicillin susceptible Staphylococcus aureus) infection Current Visit: Yes Status: Acute Code(s): A49.01 - METHICILLIN SUSCEP STAPH INFECTION, UNSP SITE SNOMED Code(s): 403062177 (2) Diabetic infection of left foot Current Visit: No Status: Acute Code(s): E11.628 - TYPE 2 DIABETES MELLITUS WITH OTHER SKIN COMPLICATIONS; L08.9 - LOCAL INFECTION OF THE SKIN AND SUBCUTANEOUS TISSUE, UNSP SNOMED Code(s): 18545493 (3) Type 2 diabetes mellitus with foot ulcer Current Visit: No Status: Acute Code(s): E11.621 - TYPE 2 DIABETES MELLITUS WITH FOOT ULCER; L97.509 - NON-PRESSURE CHRONIC ULCER OTH PRT UNSP FOOT W UNSP SEVERITY SNOMED Code(s): 747472220 Plan: 1patient with a chronic nonhealing wound to the left foot lateral border in this patient who did have a history of left fifth toe gangrene status post amputation back on February 09, 2023 at that point he did have Morganella bacteremia and local culture positive for Enterococcus and Morganella for the patient has completed course of IV antibiotic therapy, patient now with a nonhealing wound and he did have a culture from the same area growing MSSA and anaerobic gram-positive cocci 2patient did have mild elevated inflammatory markers with a sed rate of 42. 3patient to continue with the cefazolin and Flagyl local wound care with a wound VAC, PICC line has been ordered for outpatient IV antibiotic therapy Dictation was produced using [employer] dictation software. please excuse any grammatical, word or spelling errors. Time with Patient: Less than 30
[2023-04-15 17:30] LABS: Glucose,Whole Blood 298 mg/dL (70-110)
[2023-04-15] MEDS: TOPIRAMATE 25 MG TAB PO SCH (19:49)
[2023-04-15] MEDS: ATORVASTATIN 80 MG TAB PO SCH (19:49)
[2023-04-15 20:21] LABS: Glucose,Whole Blood 319 mg/dL (70-110)
[2023-04-15] MEDS: INSULIN DETEMIR (LEVEMIR) 100 UNIT/ML SYR SQ SCH (20:58)
[2023-04-16] MEDS: HYDROcodone/APAP 5-325MG 1 EACH TAB PO PRN ×2 (06:02→16:35)
[2023-04-16 07:05] LABS: Glucose,Whole Blood 153 mg/dL (70-110)
[2023-04-16] MEDS: INSULIN ASPART (NovoLOG) 100 UNIT/ML VIAL SQ SCH ×4 (08:16→21:25)
[2023-04-16] MEDS: DICYCLOMINE 10 MG CAP PO SCH ×3 (08:16→17:23)
[2023-04-16] MEDS: SUCRALFATE 1 GM TAB PO SCH ×4 (08:17→21:25)
[2023-04-16] MEDS: ASPIRIN 81 MG PO SCH (08:17)
[2023-04-16] MEDS: LACTOBACILLUS ACIDOPHILUS/PECT 1 EACH CAPSULE PO SCH ×2 (08:17→17:23)
[2023-04-16] MEDS: metroNIDAZOLE 500 MG TAB PO SCH ×3 (08:18→21:25)
[2023-04-16] MEDS: FERROUS SULFATE 325 MG TAB PO SCH (08:18)
[2023-04-16] MEDS: COLCHICINE 0.6 MG EACH PO SCH ×2 (08:18→21:25)
[2023-04-16] MEDS: predniSONE 20 MG TAB PO SCH (08:18)
[2023-04-16] MEDS: ISOSORBIDE MONONITRATE ER 30 MG TAB.ER.24H PO SCH (08:18)
[2023-04-16] MEDS: METOPROLOL TARTRATE 12.5 MG TAB PO SCH ×2 (08:18→21:25)
[2023-04-16] MEDS: FAMOTIDINE 20 MG TAB PO SCH ×2 (08:18→21:25)
[2023-04-16] MEDS: PANTOPRAZOLE 40 MG/10 ML VIAL IVP SCH ×2 (08:18→21:25)
[2023-04-16] MEDS: IPRATROPIUM-ALBUTEROL 3 ML NEB INHALATION SCH ×4 (08:45→20:08)
[2023-04-16 10:53] LABS: HCT 24.4 % (39.6-50.0); HGB 7.3 g/dL (13.0-17.0); MCH 27.7 pg (27.0-32.0); MCHC 29.9 g/dL (32.0-37.0); MCV 92.4 FL (80.0-97.0); Mean Platelet Volume 9.7 FL (9.5-12.2); NRBC Per 100 WBC 0 X 10*3/uL (0.00-0.01); Platelet Count 272 X 10*3/uL (140-440); RBC 2.64 X 10*6/uL (4.40-5.60); RDW 14.9 % (11.5-14.5); WBC 11.89 X 10*3/uL (4.50-10.00)
--- NOTE | 2023-04-16 11:34 | P.PN ---
Subjective Progress Note Date: 04/16/23 CHIEF COMPLAINT: Anemia HISTORY OF PRESENT ILLNESS: Patient is status post colonoscopy yesterday which revealed normal findings. Patient status post EGD revealing erosive gastritis. Biopsy result revealing iron pill gastritis. Patient has bedside sitter for suicide precautions. Patient denies any problems this. Afebrile. WBC is up at 11.89 Hgb 7.3 platelets 273 PHYSICAL EXAM: VITAL SIGNS: Reviewed. GENERAL: Well-developed in no acute distress. ABDOMEN: Soft. Nondistended. Nontender. ASSESSMENT: 1. Anemia 2. Possible GI bleed 3. Status post EGD revealing erosive gastritis PLAN: -Continue Protonix -Encourage patient to take food and with his medication Physician Development Analyst note has been reviewed by physician. Signing provider agrees with the documented findings, assessment, and plan of care. Objective - Vital Signs Vital signs: Vital Signs Temp 98.5 F 04/16/23 07:01 Pulse 90 04/16/23 08:57 Resp 16 04/16/23 07:01 BP 127/73 04/16/23 07:01 Pulse Ox 98 04/16/23 08:45 FiO2 Intake & Output 04/15/23 04/16/23 04/16/23 18:59 06:59 18:59 Intake Total 100 120 Output Total 300 Balance 100 120 -300 Weight 117.027 kg Intake: IV 100 Oral 120 Output: Urine 300 Other: Voiding Method Bedside Commode Bedside Commode Bedside Commode Urinal Urinal Urinal # Voids 3 # Bowel Movements 1 - Labs CBC & Chem 7: 04/16/23 06:45 04/15/23 05:50 Labs: Abnormal Lab Results - Last 24 Hours (Table) 04/15/23 04/15/23 04/15/23 Range/Units 11:54 17:25 20:18 POC Glucose (mg/dL) 124 H 298 H 319 H (70-110) mg/dL 04/16/23 Range/Units 07:03 POC Glucose (mg/dL) 153 H (70-110) mg/dL
[2023-04-16 11:39] LABS: Glucose,Whole Blood 198 mg/dL (70-110)
[2023-04-16 12:02] LABS: ALT 11 U/L (10-49); AST 14 U/L (14-35); Albumin 3.3 g/dL (3.8-4.9); Albumin/Globulin Ratio 1.32 Ratio (1.60-3.17); Alkaline Phosphatase 75 U/L (41-126); Blood Urea Nitrogen 23.1 mg/dL (9.0-27.0); Calcium 8.7 mg/dL (8.7-10.3); Carbon Dioxide 23.6 mmol/L (21.6-31.8); Chloride 106 mmol/L (96-109); Globulin 2.5 g/dL (1.6-3.3); Glucose 136 mg/dL (70-110); Potassium 4.3 mmol/L (3.5-5.5); Sodium 139 mmol/L (135-145); Total Bilirubin <0.2 mg/dL (0.3-1.2); Total Protein 5.8 g/dL (6.2-8.2)
--- NOTE | 2023-04-16 13:47 | IR ---
PICC Insertion: EXAMINATION TYPE: IR cvc insert >=5 years Intraoperative/procedural fluoroscopic services were provid ed. CLINICAL INDICATION:Male, 67 years old with history of Abx, 0.1m/1.6505DAP, 4F 55cm lt basilic PICC; , [facility] Total fluoroscopy time is 0.1 min. DAP: 1.6505 Gycm2 Please see the operative/procedural note for further details.
[2023-04-16] MEDS ORDERED: ESCITALOPRAM 5 MG TAB PO STA (15:49)
--- NOTE | 2023-04-16 15:58 | P.CN ---
Psychiatric Consult - . Consult date: 04/16/23 Consult:: 04/16/23 13:41 IDENTIFYING DATA: This patient is a 67-year-old male currently resides at [facility], he is she has 3 daughters REASON FOR REFERRAL: Psychiatry was consulted for suicidal ideations, depression and possible paranoia HISTORY OF PRESENT ILLNESS: The patient presented to the hospital as a transfer from [facility]. On 04/09. Patient was admitted to the hospital for anemia. Patient had a colonoscopy to check for bleeding and appeared to be negative. Patient apparently made comments to a nurse about jumping out the window after destroying an oxygen tank towards the window. Patient is currently on a one-to-one sitter. He claims that he came to the hospital because of "neglect" and states that this was happening at [facility]. He claims that he was bleeding out onto the floor from his foot which is currently amputated. He claims that "they heard us there" and states that he is being "punished". He referred many times to "locked up". He claims that they push him around and also "squeezed people's testicles" at [facility]. He claims that he told the nurse that he if he would have a plan he would jump out the window after his oxygen tank. He claims that "she told me to do it as well". He states that his brother wants his money and claims that he has "several millions in the bank". At this time he is complaining to have some irritability and mood instability, denying any anxiety at this time. States that his sleep has been on and off, endorsing paranoia significantly towards others. At this time patient denies any suicidal or homical ideations, intent or plan. Patient denies any auditory, visual hallucinations. Patients admits to using no recreational drugs or cigarettes PAST PSYCHIATRIC HISTORY: Patient has a a history of mood disorder. Patient claims that he used to be on Tofranil in the past however is not taking it any longer. Patient denies any previous psychiatric hospitalizations. Patient denies any psychiatric outpatient follow-up. Patient denies any history of suicide attempts in the past. Past Medical History: Cancer, Heart Failure, COPD, Dementia, Diabetes Mellitus, GERD/Reflux, Hearing Disorder / Deafness, Hyperlipidemia, Hypertension, Myocardi al Infarction (MS), Osteoarthritis (OA), Pneumonia Additional Past Medical History / Comment(s): Brain CA (30 years ago) in remission. anemia,cardiomyapathy,cellulitis rt lower leg Last Myocardial Infarction Date:: 2021 History of Any Multi-Drug Resistant Organisms: None Reported Past Surgical History: Appendectomy, Heart Catheterization, Tonsillectomy Additional Past Surgical History / Comment(s): cataracts, vasectomy, partial right foot amputation rt lower leg amputation with dehiscence of incision line, Past Anesthesia/Blood Transfusion Reactions: No Reported Reaction Past Psychological History: Anxiety, Depression, Schizophrenia Smoking Status: Never smoker Past Alcohol Use History: None Reported, Rare Past Drug Use History: None Reported ALLERGIES: as per EMR. CHEMICAL DEPENDENCY HISTORY: as per HPI. FAMILY PSYCHIATRIC/SUBSTANCE USE HISTORY: denies SOCIAL HISTORY: Patient was born and raised in [facility] and then moved to [place]. States that he completed community college. 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 Claims that he went to prison in the past for lack of child support payments. States that he has 3 daughters. He is currently . He currently lives at [facility]. MENTAL STATUS EXAM: General Appearance: Patient appears to be overweight, balding, stated age is alert, attempts to cooperate. Fairly suspicious and paranoid. Patient appears to have poor hygiene and grooming wearing hospital gown with fair eye contact. Behavior: Patient is calmly lying in bed without any agitated behavior. Suspicious paranoid. Speech: Patient's speech is fluent and nonpressured. Rambles at times Mood/Affect: Patient reports their mood is "up and down", affect is congruent Suicidality/Homicidality: Patient denies having any suicidal or homicidal ideation intent or plan. Did make suicidal threats earlier. Perceptions: Patient denies any visual hallucinations and denies any auditory hallucinations Though content/process: Able to times, loose associations, paranoia. Several delusions. Memory and concentration: AOX2, however does not know today's date. Fair attention span. Cannot spell "WORLD" backwards Judgment and insight: poor IMPRESSIONS: Psychosis unspecified neurocognitive disorder Suicidal ideations PLAN: -At this time patient DOES meet criteria for inpatient psychiatric admission however due to his medical comorbities will attempt to treat psychiatrically while he is on the medical floors. -Patient DOES NOT have decision making capacity at this time and is unable to reason through and communicate/appreciate the risks, benefits and alternatives to treatment. -Delirium precautions recommended with patient including - avoiding use of narcotics and DISH NETWORK INSTALLER sedatives, limit anticholinergic medications when possible, frequent re-orientation, minimize use of restraints, open window shades during the day and close them at night -Would recommend the following medication changes/additions: Start Seroquel 25 mg daily at bedtime for psychosis/mood stabilization/insomnia, Zoloft 50 mg daily for mood/anxiety. Seroquel twice a day when necessary for agitation/psychosis. -Continue 1:1 sitter for safety and suicidal thoughts -Cannot leave AMA at this time. Patient will need a petition and certification if attempting to leave AMA. -livestock farmworker to provide patient with outpatient mental health/psychiatry resources for appropriate follow up upon discharge -Communicated plan to patient's nurse -Will continue to follow along -Please contact with any questions. 04/16/23 15:50
--- NOTE | 2023-04-16 16:03 | P.PN ---
Subjective Progress Note Date: 04/16/23 Principal diagnosis: Reason for follow-up is left diabetic foot ulcer with recent culture positive for MSSA and anaerobes Patient is a 67-year-old male with a past medical history significant for hypertension hyperlipidemia MT diabetes mellitus dementia patient was rece ntly admitted to this facility with left fifth toe gangrene status post amputation he did have a Morganella bacteremia at that point the patient completed his antibiotic therapy patient to follow at [facility] apparently the patient have a culture done on 03/24/2023 that grew MSSA and anaerobes patient not very clear if he received any treatment for the presenting to the hospital with hemoglobin of 6.3 On today's evaluation that is 04/16/2023, the patient denies having any fever or any chills patient is breathing comfortably on 2 L nasal cannula oxygen, the patient denies any chest pain shortness of breath or cough no sputum production, the patient denies nausea vomiting no abdominal pain no diarrhea. Denies pain to the left foot wound The patient white count of 11.8 then, creatinine is 1.1 Objective - Vital Signs Vital signs: Vital Signs Temp 98.5 F 04/16/23 07:01 Pulse 85 04/16/23 11:48 Resp 16 04/16/23 07:01 BP 127/73 04/16/23 07:01 Pulse Ox 98 04/16/23 08:45 FiO2 Intake & Output 04/15/23 04/16/23 04/16/23 18:59 06:59 18:59 Intake Total 100 120 Output Total 300 Balance 100 120 -300 Weight 117.027 kg Intake: IV 100 Oral 120 Output: Urine 300 Other: Voiding Method Bedside Commode Bedside Commode Bedside Commode Urinal Urinal Urinal # Voids 3 # Bowel Movements 1 - Exam GENERAL DESCRIPTION: An elderly male lying in bed in no distress RESPIRATORY SYSTEM: Unlabored breathing , decreased breath sounds at bases HEART: S1 S2 regular rate and rhythm , ABDOMEN: Soft , no tenderness EXTREMITIES: Left fifth toe amputation site wound is covered with a wound VAC - Labs CBC & Chem 7: 04/16/23 06:45 04/16/23 06:45 Labs: Abnormal Lab Results - Last 24 Hours (Table) 04/15/23 04/15/23 04/16/23 Range/Units 17:25 20:18 06:45 WBC 11.89 H (4.50-10.00) X 10*3/uL RBC 2.64 L (4.40-5.60) X 10*6/uL Hgb 7.3 L (13.0-17.0) g/dL Hct 24.4 L (39.6-50.0) % MCHC 29.9 L (32.0-37.0) g/dL RDW 14.9 H (11.5-14.5) % BUN/Creatinine Ratio (12.00-20.00) Ratio Glucose (70-110) mg/dL POC Glucose (mg/dL) 298 H 319 H (70-110) mg/dL Total Bilirubin (0.3-1.2) mg/dL Total Protein (6.2-8.2) g/dL Albumin (3.8-4.9) g/dL Albumin/Globulin Ratio (1.60-3.17) Ratio 04/16/23 04/16/23 04/16/23 Range/Units 06:45 07:03 11:38 WBC (4.50-10.00) X 10*3/uL RBC (4.40-5.60) X 10*6/uL Hgb (13.0-17.0) g/dL Hct (39.6-50.0) % MCHC (32.0-37.0) g/dL RDW (11.5-14.5) % BUN/Creatinine Ratio 21.00 H (12.00-20.00) Ratio Glucose 136 H (70-110) mg/dL POC Glucose (mg/dL) 153 H 198 H (70-110) mg/dL Total Bilirubin <0.2 L (0.3-1.2) mg/dL Total Protein 5.8 L (6.2-8.2) g/dL Albumin 3.3 L (3.8-4.9) g/dL Albumin/Globulin Ratio 1.32 L (1.60-3.17) Ratio Assessment and Plan (1) MSSA (methicillin susceptible Staphylococcus aureus) infection Current Visit: Yes Status: Acute Code(s): A49.01 - METHICILLIN SUSCEP STAPH INFECTION, UNSP SITE SNOMED Code(s): 655993796 (2) Diabetic infection of left foot Current Visit: No Status: Acute Code(s): E11.628 - TYPE 2 DIABETES MELLITUS WITH OTHER SKIN COMPLICATIONS; L08.9 - LOCAL INFECTION OF THE SKIN AND SUBCUTANEOUS TISSUE, UNSP SNOMED Code(s): 02242663 (3) Type 2 diabetes mellitus with foot ulcer Current Visit: No Status: Acute Code(s): E11.621 - TYPE 2 DIABETES MELLITUS WITH FOOT ULCER; L97.509 - NON-PRESSURE CHRONIC ULCER OTH PRT UNSP FOOT W UNSP SEVERITY SNOMED Code(s): 677407294 Plan: 1patient with a chronic nonhealing wound to the left foot lateral border in this patient who did have a history of left fifth toe gangrene status post amputation back on February 09, 2023 at that point he did have Morganella bacteremia and local culture positive for Enterococcus and Morganella for the patient has completed course of IV antibiotic therapy, patient now with a nonhealing wound and he did have a culture from the same area growing MSSA and anaerobic gram-positive cocci 2patient did have mild elevated inflammatory markers with a sed rate of 42. 3the patient did get a PICC line he will continue with cefazolin and Flagyl local wound care with a wound VAC and will monitor his clinical course closely Dictation was produced using [employer] software. please excuse any grammatical, word or spelling errors.
[2023-04-16 16:49] LABS: Glucose,Whole Blood 332 mg/dL (70-110)
[2023-04-16] MEDS ORDERED: ONDANSETRON 4 MG/2 ML VIAL IVP PRN (20:01)
[2023-04-16 20:28] LABS: Glucose,Whole Blood 362 mg/dL (70-110)
[2023-04-16] MEDS ORDERED: QUEtiapine 25 MG TAB PO SCH (21:00)
[2023-04-16] MEDS: TOPIRAMATE 25 MG TAB PO SCH (21:25)
[2023-04-16] MEDS: ATORVASTATIN 80 MG TAB PO SCH (21:25)
[2023-04-16] MEDS: INSULIN DETEMIR (LEVEMIR) 100 UNIT/ML SYR SQ SCH (21:26)
[2023-04-17 07:12] LABS: Glucose,Whole Blood 226 mg/dL (70-110)
[2023-04-17] MEDS: ASPIRIN 81 MG PO SCH (08:09)
[2023-04-17] MEDS: INSULIN ASPART (NovoLOG) 100 UNIT/ML VIAL SQ SCH ×4 (08:09→20:59)
[2023-04-17] MEDS: LACTOBACILLUS ACIDOPHILUS/PECT 1 EACH CAPSULE PO SCH ×2 (08:10→18:05)
[2023-04-17] MEDS: ESCITALOPRAM 10 MG TAB PO SCH (08:10)
[2023-04-17] MEDS: metroNIDAZOLE 500 MG TAB PO SCH ×3 (08:10→21:02)
[2023-04-17] MEDS: SUCRALFATE 1 GM TAB PO SCH ×4 (08:10→21:00)
[2023-04-17] MEDS: predniSONE 20 MG TAB PO SCH (08:10)
[2023-04-17] MEDS: FAMOTIDINE 20 MG TAB PO SCH ×2 (08:10→21:00)
[2023-04-17] MEDS: ISOSORBIDE MONONITRATE ER 30 MG TAB.ER.24H PO SCH (08:10)
[2023-04-17] MEDS: FERROUS SULFATE 325 MG TAB PO SCH (08:10)
[2023-04-17] MEDS: COLCHICINE 0.6 MG EACH PO SCH ×2 (08:10→21:00)
[2023-04-17] MEDS: DICYCLOMINE 10 MG CAP PO SCH ×3 (08:10→18:05)
[2023-04-17] MEDS: METOPROLOL TARTRATE 12.5 MG TAB PO SCH ×2 (08:10→21:00)
[2023-04-17] MEDS: PANTOPRAZOLE 40 MG/10 ML VIAL IVP SCH ×2 (08:11→20:59)
[2023-04-17] MEDS: IPRATROPIUM-ALBUTEROL 3 ML NEB INHALATION SCH ×4 (08:39→20:23)
--- NOTE | 2023-04-17 11:03 | P.PN ---
Subjective Progress Note Date: 04/17/23 (Surgery) ASSESSMENT: 1. Anemia 2. Possible GI bleed 3. Status post EGD revealing erosive gastritis PLAN: -Continue Protonix -Encourage patient to take food and with his medication Objective - Vital Signs Vital signs: Vital Signs Temp 97.6 F 04/17/23 07:13 Pulse 100 04/17/23 08:53 Resp 16 04/17/23 07:13 BP 126/74 04/17/23 07:13 Pulse Ox 99 04/17/23 08:42 FiO2 Intake & Output 04/16/23 04/17/23 04/17/23 18:59 06:59 18:59 Output Total 600 300 Balance -600 -300 Output: Urine 600 300 Other: Voiding Method Bedside Commode Bedside Commode Urinal Urinal # Voids 300 - Labs CBC & Chem 7: 04/16/23 06:45 04/16/23 06:45 Labs: Abnormal Lab Results - Last 24 Hours (Table) 04/16/23 04/16/23 04/16/23 Range/Units 06:45 11:38 16:47 BUN/Creatinine Ratio 21.00 H (12.00-20.00) Ratio Glucose 136 H (70-110) mg/dL POC Glucose (mg/dL) 198 H 332 H (70-110) mg/dL Total Bilirubin <0.2 L (0.3-1.2) mg/dL Total Protein 5.8 L (6.2-8.2) g/dL Albumin 3.3 L (3.8-4.9) g/dL Albumin/Globulin Ratio 1.32 L (1.60-3.17) Ratio 04/16/23 04/17/23 Range/Units 20:09 07:11 BUN/Creatinine Ratio (12.00-20.00) Ratio Glucose (70-110) mg/dL POC Glucose (mg/dL) 362 H 226 H (70-110) mg/dL Total Bilirubin (0.3-1.2) mg/dL Total Protein (6.2-8.2) g/dL Albumin (3.8-4.9) g/dL Albumin/Globulin Ratio (1.60-3.17) Ratio Microbiology - Last 24 Hours (Table) 04/11/23 07:26 Blood Culture - Final Blood
[2023-04-17 11:57] LABS: Glucose,Whole Blood 204 mg/dL (70-110)
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
[2023-04-17] MEDS: HYDROcodone/APAP 5-325MG 1 EACH TAB PO PRN (16:53)
[2023-04-17 17:03] LABS: Glucose,Whole Blood 240 mg/dL (70-110)
[2023-04-17 20:05] LABS: Glucose,Whole Blood 295 mg/dL (70-110)
--- NOTE | 2023-04-17 20:18 | P.PN ---
Subjective Progress Note Date: 04/16/23 67-year-old gentleman with past medical history significant for hypertension, hyperlipidemia, diabetes, CAD, cardiomyopathy with an ejection fraction of 25- 30% who was sent to ER from [facility] for abnormal labs. Patient had blood work done at a facility and was found to have a low hemoglobin level of 6.3. Patient denies any complaint of any blood in the stool. There was no complain of any nausea or vomiting or any hematemesis. Denies any abdominal pain. Patient has a wound on his left leg with wound VAC that he thinks he picked and was bleeding. Denies any chest pain or shortness of breath. He was no complain of lightheadedness or dizziness. Because of these abnormal labs, patient was sent to the ER Initial lab work done in the ER showed WBC 8.7, hemoglobin 7, platelet count 317, sodium 140, potassium 4, BUN 81, creatinine 1.34, glucose 161, FOBT positive Objective - Vital Signs Vital signs: Vital Signs Temp 98.6 F 04/16/23 12:55 Pulse 93 04/16/23 12:55 Resp 16 04/16/23 12:55 BP 148/78 04/16/23 12:55 Pulse Ox 98 04/16/23 12:55 FiO2 Intake & Output 04/15/23 04/16/23 04/16/23 18:59 06:59 18:59 Intake Total 100 120 Output Total 300 Balance 100 120 -300 Weight 117.027 kg Intake: IV 100 Oral 120 Output: Urine 300 Other: Voiding Method Bedside Commode Bedside Commode Bedside Commode Urinal Urinal Urinal # Voids 3 # Bowel Movements 1 - Exam GENERAL: The patient is alert and oriented x3, not in any acute distress. Well developed, well nourished. HEENT: Pupils are round and equally reacting to light. EOMI. No scleral icterus. No conjunctival pallor. Normocephalic, atraumatic. No pharyngeal erythema. No thyromegaly. CARDIOVASCULAR: S1 and S2 present. No murmurs, rubs, or gallops. PULMONARY: Chest is clear to auscultation, no wheezing or crackles. ABDOMEN: Soft, nontender, nondistended, normoactive bowel sounds. No palpable organomegaly. MUSCULOSKELETAL: Left foot wound VAC seen EXTREMITIES: No cyanosis, clubbing, or pedal edema. NEUROLOGICAL: Gross neurological examination did not reveal any focal deficits. SKIN: No rashes. - Labs CBC & Chem 7: 04/16/23 06:45 04/16/23 06:45 Labs: Abnormal Lab Results - Last 24 Hours (Table) 04/15/23 04/15/23 04/16/23 Range/Units 17:25 20:18 06:45 WBC 11.89 H (4.50-10.00) X 10*3/uL RBC 2.64 L (4.40-5.60) X 10*6/uL Hgb 7.3 L (13.0-17.0) g/dL Hct 24.4 L (39.6-50.0) % MCHC 29.9 L (32.0-37.0) g/dL RDW 14.9 H (11.5-14.5) % BUN/Creatinine Ratio (12.00-20.00) Ratio Glucose (70-110) mg/dL POC Glucose (mg/dL) 298 H 319 H (70-110) mg/dL Total Bilirubin (0.3-1.2) mg/dL Total Protein (6.2-8.2) g/dL Albumin (3.8-4.9) g/dL Albumin/Globulin Ratio (1.60-3.17) Ratio 04/16/23 04/16/23 04/16/23 Range/Units 06:45 07:03 11:38 WBC (4.50-10.00) X 10*3/uL RBC (4.40-5.60) X 10*6/uL Hgb (13.0-17.0) g/dL Hct (39.6-50.0) % MCHC (32.0-37.0) g/dL RDW (11.5-14.5) % BUN/Creatinine Ratio 21.00 H (12.00-20.00) Ratio Glucose 136 H (70-110) mg/dL POC Glucose (mg/dL) 153 H 198 H (70-110) mg/dL Total Bilirubin <0.2 L (0.3-1.2) mg/dL Total Protein 5.8 L (6.2-8.2) g/dL Albumin 3.3 L (3.8-4.9) g/dL Albumin/Globulin Ratio 1.32 L (1.60-3.17) Ratio Assessment and Plan Assessment: Chronic nonhealing ulcer of left foot, wound culture growing MSSA Acute blood loss anemia Suicidal thoughts FOBT positive History of left foot wound with evidence of osteomyelitis status post amputation of the left fifth toe CAD with known chronic total occlusion of the distal RCA and intermediate disease involving the OM1 PAD with recent PHYSICS PROFESSOR involving the left SFA hypertension hyperlipidemia Hyperuricemia Acute gout COPD chronic hypoxic respiratory failure on home O2 Diabetes mellitus Monitor vital signs Monitor CBC Monitor CMP Continue telemetry monitoring Suicide precautions One-on-one sitter continue aspirin and Plavix Continue IV Protonix Continue Carafate Continue IV cefazolin and Flagyl Continue prednisone and colchicine for acute gout Patient received 1 unit of packed red blood cell in the ER Surgery consulted, no GI coverage at this time, EGD done showed gastritis, colonoscopy done today was normal Psych consulted ID following In regards to hypertension, Lopressor and Imdur Regards to hyperlipidemia , Lipitor In regards to acute anemia,continue to monitor H&H transfuse for hemodynamic i nstability or hemoglobin less than 7 In regards to diabetes mellitus, continue current insulin regimen Labs and medication were reviewed.. Continue same treatment. Continue with symptomatic treatment. Resume home medication. Monitor labs and vitals. DVT and GI prophylaxis. Further recommendations as per clinical course of the patient
--- NOTE | 2023-04-17 20:22 | P.PN ---
Subjective Progress Note Date: 04/17/23 67-year-old gentleman with past medical history significant for hypertension, hyperlipidemia, diabetes, CAD, cardiomyopathy with an ejection fraction of 25- 30% who was sent to ER from [facility] for abnormal labs. Patient had blood work done at a facility and was found to have a low hemoglobin level of 6.3. Patient denies any complaint of any blood in the stool. There was no complain of any nausea or vomiting or any hematemesis. Denies any abdominal pain. Patient has a wound on his left leg with wound VAC that he thinks he picked and was bleeding. Denies any chest pain or shortness of breath. He was no complain of lightheadedness or dizziness. Because of these abnormal labs, patient was sent to the ER Initial lab work done in the ER showed WBC 8.7, hemoglobin 7, platelet count 317, sodium 140, potassium 4, BUN 81, creatinine 1.34, glucose 161, FOBT positive 04/17/2023 Patient is seen and evaluated sitting up in bed; sitter at bedside Vital signs are reviewed and stable with temperature of 98, pulse 93, respiration 24 and blood pressure 131/74 with saturation 96% on 2 L Patient has been evaluated by psychiatry; patient meets criteria for inpatient psych admission; recommended to avoid use of narcotics and sedatives; discontinue Seroquel and replace with paliperidone by mouth 3 mg daily at bedtime for psychosis/mood stabilization/insomnia, continue lexapro 10 mg daily for mood/anxiety. Seroquel twice a day when necessary for agitation/psychosis. Melatonin 3 mg daily at bedtime for sleep -Continue 1:1 sitter for safety and suicidal thoughts -Cannot leave AMA at this time. Patient will need a petition and certification if attempting to leave AMA. Objective - Vital Signs Vital signs: Vital Signs Temp 97.6 F 04/17/23 07:13 Pulse 104 H 04/17/23 11:48 Resp 16 04/17/23 07:13 BP 126/74 04/17/23 07:13 Pulse Ox 99 04/17/23 08:42 FiO2 Intake & Output 04/16/23 04/17/23 04/17/23 18:59 06:59 18:59 Output Total 600 300 Balance -600 -300 Output: Urine 600 300 Other: Voiding Method Bedside Commode Bedside Commode Bedside Commode Urinal Urinal Urinal # Voids 300 - Exam GENERAL: The patient is alert and oriented x3, not in any acute distress. Well developed, well nourished. HEENT: Pupils are round and equally reacting to light. EOMI. No scleral icterus. No conjunctival pallor. Normocephalic, atraumatic. No pharyngeal erythema. No thyromegaly. CARDIOVASCULAR: S1 and S2 present. No murmurs, rubs, or gallops. PULMONARY: Chest is clear to auscultation, no wheezing or crackles. ABDOMEN: Soft, nontender, nondistended, normoactive bowel sounds. No palpable organomegaly. MUSCULOSKELETAL: Left foot wound VAC seen EXTREMITIES: No cyanosis, clubbing, or pedal edema. NEUROLOGICAL: Gross neurological examination did not reveal any focal deficits. SKIN: No rashes. - Labs CBC & Chem 7: 04/16/23 06:45 04/16/23 06:45 Labs: Abnormal Lab Results - Last 24 Hours (Table) 04/16/23 04/16/23 04/17/23 Range/Units 16:47 20:09 07:11 POC Glucose (mg/dL) 332 H 362 H 226 H (70-110) mg/dL 04/17/23 Range/Units 11:56 POC Glucose (mg/dL) 204 H (70-110) mg/dL Microbiology - Last 24 Hours (Table) 04/11/23 07:26 Blood Culture - Final Blood Assessment and Plan Assessment: Chronic nonhealing ulcer of left foot, wound culture growing MSSA Acute blood loss anemia Suicidal thoughts FOBT positive History of left foot wound with evidence of osteomyelitis status post amputation of the left fifth toe CAD with known chronic total occlusion of the distal RCA and intermediate disease involving the OM1 PAD with recent DIRECTOR OF ASSESSING involving the left SFA hypertension hyperlipidemia Hyperuricemia Acute gout COPD chronic hypoxic respiratory failure on home O2 Diabetes mellitus Monitor vital signs Monitor CBC Monitor CMP Continue telemetry monitoring Suicide precautions One-on-one sitter continue aspirin and Plavix Continue IV Protonix Continue Carafate Continue IV cefazolin and Flagyl Continue prednisone and colchicine for acute gout Patient received 1 unit of packed red blood cell in the ER Surgery consulted, no GI coverage at this time, EGD done showed gastritis, colonoscopy done today was normal Psych consulted ID following In regards to hypertension, Lopressor and Imdur Regards to hyperlipidemia , Lipitor In regards to acute anemia,continue to monitor H&H transfuse for hemodynamic instability or hemoglobin less than 7 In regards to diabetes mellitus, continue current insulin regimen Labs and medication were reviewed.. Continue same treatment. Continue with sym ptomatic treatment. Resume home medication. Monitor labs and vitals. DVT and GI prophylaxis. Further recommendations as per clinical course of the patient
[2023-04-17] MEDS: INSULIN DETEMIR (LEVEMIR) 100 UNIT/ML SYR SQ SCH (20:59)
[2023-04-17] MEDS: TOPIRAMATE 25 MG TAB PO SCH (21:00)
[2023-04-17] MEDS: PALIPERIDONE 3 MG TAB.ER.24 PO SCH (21:00)
[2023-04-17] MEDS: ATORVASTATIN 80 MG TAB PO SCH (21:00)
[2023-04-17] MEDS: MELATONIN 3 MG TABLET PO SCH (21:00)
[2023-04-18] MEDS: HYDROcodone/APAP 5-325MG 1 EACH TAB PO PRN ×2 (06:18→21:19)
--- NOTE | 2023-04-18 06:57 | P.PN ---
Subjective Progress Note Date: 04/18/23 67-year-old gentleman with past medical history significant for hypertension, hyperlipidemia, diabetes, CAD, cardiomyopathy with an ejection fraction of 25- 30% who was sent to ER from [facility] for abnormal labs. Patient had blood work done at a facility and was found to have a low hemoglobin level of 6.3. Patient denies any complaint of any blood in the stool. There was no complain of any nausea or vomiting or any hematemesis. Denies any abdominal pain. Patient has a wound on his left leg with wound VAC that he thinks he picked and was bleeding. Denies any chest pain or shortness of breath. He was no complain of lightheadedness or dizziness. Because of these abnormal labs, patient was sent to the ER Initial lab work done in the ER showed WBC 8.7, hemoglobin 7, platelet count 317, sodium 140, potassium 4, BUN 81, creatinine 1.34, glucose 161, FOBT positive 04/17/2023 Patient is seen and evaluated sitting up in bed; sitter at bedside Vital signs are reviewed and stable with temperature of 98, pulse 93, respiration 24 and blood pressure 131/74 with saturation 96% on 2 L Patient has been evaluated by psychiatry; patient meets criteria for inpatient psych admission; recommended to avoid use of narcotics and sedatives; discontinue Seroquel and replace with paliperidone by mouth 3 mg daily at bedtime for psychosis/mood stabilization/insomnia, continue lexapro 10 mg daily for mood/anxiety. Seroquel twice a day when necessary for agitation/psychosis. Melatonin 3 mg daily at bedtime for sleep -Continue 1:1 sitter for safety and suicidal thoughts -Cannot leave AMA at this time. Patient will need a petition and certification if attempting to leave AMA. 04/18/2023 Patient is seen and evaluated sitting up in bed with sitter bedside psychiatry recommendations; patient does meet criteria for inpatient psychiatric admission; remains on medical floor for multiple medical problems; psych following for medication adjustment and further treatment patient with a chronic nonhealing wound to the left foot lateral border in this patient who did have a history of left fifth toe gangrene status post amputation back on February 09, 2023 at that point he did have Morganella bacteremia and local culture positive for Enterococcus and Morganella for the patient has completed course of IV antibiotic therapy, patient now with a nonhealing wound and he did have a culture from the same area growing MSSA and anaerobic gram- positive cocci patient did have mild elevated inflammatory markers with a sed rate of 42. the patient did get a PICC line he will continue with cefazolin and Flagyl local wound care with a wound VAC and will monitor his clinical course closely Objective - Vital Signs Vital signs: Vital Signs Temp 97.8 F 04/17/23 20:00 Pulse 100 04/17/23 20:41 Resp 18 04/17/23 20:00 BP 168/79 04/17/23 20:00 Pulse Ox 99 04/17/23 20:00 FiO2 Intake & Output 04/17/23 04/17/23 04/18/23 06:59 18:59 06:59 Intake Total 50 Output Total 300 300 Balance -300 -250 Intake: Intake, IV Titration 50 Amount ceFAZolin 2 gm In Sodium 50 Chloride 0.9% 50 ml @ 100 mls/hr IVPB Q8HR [facility] Rx# :[id number] Output: Urine 300 300 Other: Voiding Method Bedside Commode Bedside Commode Urinal Urinal # Voids 300 1 # Bowel Movements 1 - Exam GENERAL: The patient is alert and oriented x3, not in any acute distress. Well developed, well nourished. HEENT: Pupils are round and equally reacting to light. EOMI. No scleral icterus. No conjunctival pallor. Normocephalic, atraumatic. No pharyngeal erythema. No thyromegaly. CARDIOVASCULAR: S1 and S2 present. No murmurs, rubs, or gallops. PULMONARY: Chest is clear to auscultation, no wheezing or crackles. ABDOMEN: Soft, nontender, nondistended, normoactive bowel sounds. No palpable organomegaly. MUSCULOSKELETAL: Left foot wound VAC seen EXTREMITIES: No cyanosis, clubbing, or pedal edema. NEUROLOGICAL: Gross neurological examination did not reveal any focal deficits. SKIN: No rashes. - Labs CBC & Chem 7: 04/16/23 06:45 04/16/23 06:45 Labs: Abnormal Lab Results - Last 24 Hours (Table) 04/17/23 04/17/23 04/17/23 Range/Units 07:11 11:56 17:01 POC Glucose (mg/dL) 226 H 204 H 240 H (70-110) mg/dL 04/17/23 Range/Units 20:04 POC Glucose (mg/dL) 295 H (70-110) mg/dL Assessment and Plan Assessment: Chronic nonhealing ulcer of left foot, wound culture growing MSSA Acute blood loss anemia Suicidal thoughts FOBT positive History of left foot wound with evidence of osteomyelitis status post amputation of the left fifth toe CAD with known chronic total occlusion of the distal RCA and intermediate disease involving the OM1 PAD with recent [employer]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 hypertension hyperlipidemia Hyperuricemia Acute gout COPD chronic hypoxic respiratory failure on home O2 Diabetes mellitus Monitor vital signs Monitor CBC Monitor CMP Continue telemetry monitoring Suicide precautions One-on-one sitter continue aspirin and Plavix Continue IV Protonix Continue Carafate Continue IV cefazolin and Flagyl Continue prednisone and colchicine for acute gout Patient received 1 unit of packed red blood cell in the ER Surgery consulted, no GI coverage at this time, EGD done showed gastritis, colonoscopy done today was normal Psych consulted ID following In regards to hypertension, Lopressor and Imdur Regards to hyperlipidemia , Lipitor In regards to acute anemia,continue to monitor H&H transfuse for hemodynamic instability or hemoglobin less than 7 In regards to diabetes mellitus, continue current insulin regimen Labs and medication were reviewed.. Continue same treatment. Continue with symptomatic treatment. Resume home medication. Monitor labs and vitals. DVT and GI prophylaxis. Further recommendations as per clinical course of the patient
[2023-04-18 07:11] LABS: Glucose,Whole Blood 230 mg/dL (70-110)
[2023-04-18] MEDS: IPRATROPIUM-ALBUTEROL 3 ML NEB INHALATION SCH ×4 (08:24→21:36)
[2023-04-18] MEDS: COLCHICINE 0.6 MG EACH PO SCH ×2 (08:39→21:18)
[2023-04-18] MEDS: SUCRALFATE 1 GM TAB PO SCH ×4 (08:39→21:18)
[2023-04-18] MEDS: LACTOBACILLUS ACIDOPHILUS/PECT 1 EACH CAPSULE PO SCH ×2 (08:39→17:42)
[2023-04-18] MEDS: ASPIRIN 81 MG PO SCH (08:39)
[2023-04-18] MEDS: INSULIN ASPART (NovoLOG) 100 UNIT/ML VIAL SQ SCH ×4 (08:39→21:17)
[2023-04-18] MEDS: DICYCLOMINE 10 MG CAP PO SCH ×3 (08:39→17:42)
[2023-04-18] MEDS: predniSONE 20 MG TAB PO SCH (08:40)
[2023-04-18] MEDS: ESCITALOPRAM 10 MG TAB PO SCH (08:40)
[2023-04-18] MEDS: FERROUS SULFATE 325 MG TAB PO SCH (08:40)
[2023-04-18] MEDS: ISOSORBIDE MONONITRATE ER 30 MG TAB.ER.24H PO SCH (08:40)
[2023-04-18] MEDS: PANTOPRAZOLE 40 MG/10 ML VIAL IVP SCH ×2 (08:40→21:17)
[2023-04-18] MEDS: metroNIDAZOLE 500 MG TAB PO SCH ×3 (08:40→21:18)
[2023-04-18] MEDS: METOPROLOL TARTRATE 12.5 MG TAB PO SCH ×2 (08:40→21:18)
[2023-04-18] MEDS: FAMOTIDINE 20 MG TAB PO SCH ×2 (08:40→21:18)
[2023-04-18 10:01] LABS: Basophils # (A) 0.02 X 10*3/uL (0.00-0.10); Basophils % (A) 0.2 %; Eosinophils # (A) 0.03 X 10*3/uL (0.04-0.35); Eosinophils % (A) 0.3 %; HCT 23.9 % (39.6-50.0); HGB 7.2 g/dL (13.0-17.0); Lymphocytes # (A) 1.36 X 10*3/uL (0.90-5.00); Lymphocytes % (A) 11.7 %; MCH 27.8 pg (27.0-32.0); MCHC 30.1 g/dL (32.0-37.0); MCV 92.3 FL (80.0-97.0); Mean Platelet Volume 9.8 FL (9.5-12.2); Monocytes # (A) 0.55 X 10*3/uL (0.20-1.00); Monocytes % (A) 4.7 %; NRBC Per 100 WBC 0 X 10*3/uL (0.00-0.01); Neutrophils # (A) 9.49 X 10*3/uL (1.80-7.70); Neutrophils % (A) 81.9 %; Platelet Count 257 X 10*3/uL (140-440); RBC 2.59 X 10*6/uL (4.40-5.60); RDW 15.2 % (11.5-14.5); WBC 11.59 X 10*3/uL (4.50-10.00)
[2023-04-18 10:15] LABS: Blood Urea Nitrogen 27.1 mg/dL (9.0-27.0); Calcium 8.7 mg/dL (8.7-10.3); Carbon Dioxide 22.7 mmol/L (21.6-31.8); Chloride 106 mmol/L (96-109); Glucose 206 mg/dL (70-110); Potassium 4.1 mmol/L (3.5-5.5); Sodium 139 mmol/L (135-145)
--- NOTE | 2023-04-18 11:09 | P.PN ---
Subjective Progress Note Date: 04/18/23 Patient still. His hemoglobin is 7.2. On exam vital signs are stable. Abdomen soft. There is no sign of GI bleed. Patiently receive supportive care. Objective - Vital Signs Vital signs: Vital Signs Temp 97.7 F 04/18/23 07:12 Pulse 101 H 04/18/23 08:35 Resp 20 04/18/23 07:12 BP 111/66 04/18/23 07:12 Pulse Ox 94 L 04/18/23 07:12 FiO2 Intake & Output 04/17/23 04/18/23 04/18/23 18:59 06:59 18:59 Intake Total 50 Output Total 300 Balance -250 Intake: Intake, IV Titration 50 Amount ceFAZolin 2 gm In Sodium 50 Chloride 0.9% 50 ml @ 100 mls/hr IVPB Q8HR [facility] Rx# :[id number] Output: Urine 300 Other: Voiding Method Bedside Commode Bedside Commode Bedside Commode Urinal Urinal Urinal # Voids 1 # Bowel Movements 1 - Labs CBC & Chem 7: 04/18/23 06:36 04/18/23 06:36 Labs: Abnormal Lab Results - Last 24 Hours (Table) 04/17/23 04/17/23 04/17/23 Range/Units 11:56 17:01 20:04 WBC (4.50-10.00) X 10*3/uL RBC (4.40-5.60) X 10*6/uL Hgb (13.0-17.0) g/dL Hct (39.6-50.0) % MCHC (32.0-37.0) g/dL RDW (11.5-14.5) % Immature Gran # (0.00-0.04) X 10*3/uL Neutrophils # (1.80-7.70) X 10*3/uL Eosinophils # (0.04-0.35) X 10*3/uL BUN (9.0-27.0) mg/dL BUN/Creatinine Ratio (12.00-20.00) Ratio Glucose (70-110) mg/dL POC Glucose (mg/dL) 204 H 240 H 295 H (70-110) mg/dL 04/18/23 04/18/23 04/18/23 Range/Units 06:36 06:36 07:10 WBC 11.59 H (4.50-10.00) X 10*3/uL RBC 2.59 L (4.40-5.60) X 10*6/uL Hgb 7.2 L (13.0-17.0) g/dL Hct 23.9 L (39.6-50.0) % MCHC 30.1 L (32.0-37.0) g/dL RDW 15.2 H (11.5-14.5) % Immature Gran # 0.14 H (0.00-0.04) X 10*3/uL Neutrophils # 9.49 H (1.80-7.70) X 10*3/uL Eosinophils # 0.03 L (0.04-0.35) X 10*3/uL BUN 27.1 H (9.0-27.0) mg/dL BUN/Creatinine Ratio 27.10 H (12.00-20.00) Ratio Glucose 206 H (70-110) mg/dL POC Glucose (mg/dL) 230 H (70-110) mg/dL
[2023-04-18 11:58] LABS: Glucose,Whole Blood 247 mg/dL (70-110)
--- NOTE | 2023-04-18 12:38 | P.PN ---
Progress Note - Text Progress Note Date: 04/18/23 Interval history: Patient was seen today for psychiatric follow-up psychosis suicidal ideations and delusions. Patient appeared to be mildly less sedated this morning. He appeared to be calmer, less agitated and more organized in his thought process. patient was also less focused on delusions and paranoia today. he claims that he slept on/off last night. He appeared to be mildly less irritable. He denied any other complaints overnight. claims that his mood and anxiety have mildly been improving. States that his appetite is fair and improving. Claims that he still feeling somewhat depressed, denies any anxiety at this time. Denying any suicidal or homicidal ideations intent or plan. Denying any auditory or visual hallucinations. Nurse claims that patient is mildly improving however did mention that she would wrap the oxygen tubing around his neck to kill himself. MENTAL STATUS EXAM: General Appearance: Patient appears to be overweight, balding, stated age is alert, attempts to cooperate. Fairly suspicious and paranoid, improving mildly. Patient appears to have improving hygiene and grooming wearing hospital gown with fair eye contact. Behavior: Patient is calmly lying in bed without any agitated behavior. less Suspicious paranoid, improving mildly. Mildly lethargic Speech: Patient's speech is fluent and nonpressured. [place] Mood/Affect: Patient reports their mood is "depressed", affect is congruent and constricted Suicidality/Homicidality: Patient denies having any current suicidal or homicidal ideation intent or plan. Perceptions: Patient denies any visual hallucinations and denies any auditory hallucinations Though content/process: Able to times, loose associations, paranoia, improving mildly. Less preoccupied and focused on delusions. Memory and concentration: AOX2, however does not know today's date. Fair attention span. Judgment and insight: poor, improving mildly IMPRESSIONS: Psychosis unspecified neurocognitive disorder Suicidal ideations PLAN: -At this time patient DOES meet criteria for inpatient psychiatric admission however due to his medical comorbities will attempt to treat psychiatrically while he is on the medical floors. -Patient DOES NOT have decision making capacity at this time and is unable to reason through and communicate/appreciate the risks, benefits and alternatives to treatment. -Delirium precautions recommended with patient including - avoiding use of narcotics and [employer]IST sedatives, limit anticholinergic medications when possible, frequent re-orientation, minimize use of restraints, open window shades during the day and close them at night -Would recommend the following medication changes/additions: continue paliperidone by mouth 3 mg daily at bedtime for psychosis/mood stabilization/insomnia, increase lexapro 20 mg total daily for mood/anxiety. Seroquel twice a day when necessary for agitation/psychosis. Melatonin 3 mg daily at bedtime for sleep -Continue 1:1 sitter for safety and suicidal thoughts, will attempt to re- evaluate tomorrow if patient still requires a sitter however today patient did mention to nurse that he would wrap the tubing from his oxygen tank around his neck to hang himself. -Cannot leave AMA at this time. Patient will need a petition and certification if attempting to leave AMA. -logging worker to provide patient with outpatient mental health/psychiatry resources for appropriate follow up upon discharge -Communicated plan to patient's nurse -Will continue to follow along -Please contact with any questions.
[2023-04-18 17:23] LABS: Glucose,Whole Blood 440 mg/dL (70-110)
[2023-04-18] MEDS ORDERED: INSULIN ASPART (NovoLOG) 100 UNIT/ML VIAL SQ ONE (17:34)
--- NOTE | 2023-04-18 18:10 | P.PN ---
Subjective Progress Note Date: 04/17/23 Principal diagnosis: Reason for follow-up is left diabetic foot ulcer with recent culture positive for MSSA and anaerobes Patient is a 67-year-old male with a past medical history significant for hypertension hyperlipidemia [place] diabetes mellitus dementia patient was rece ntly admitted to this facility with left fifth toe gangrene status post amputation he did have a Morganella bacteremia at that point the patient completed his antibiotic therapy patient to follow at [facility] apparently the patient have a culture done on 03/24/2023 that grew MSSA and anaerobes patient not very clear if he received any treatment for the presenting to the hospital with hemoglobin of 6.3 On today's evaluation that is 04/17/2023 the patient remains to be afebrile the patient is breathing comfortably on 2 L nasal cannula supplemental oxygen, the patient denies any chest pain, the patient denies chest pain shortness of breath or cough, patient denies having nausea no vomiting the patient abdominal pain and no diarrhea, denies pain to the left foot wound area Patient white count is 11.89 and creatinine 1.1 as of 04/16/2022 no lab draw today Objective - Vital Signs Vital signs: Vital Signs Temp 97.6 F 04/17/23 07:13 Pulse 94 04/17/23 07:13 Resp 16 04/17/23 07:13 BP 126/74 04/17/23 07:13 Pulse Ox 93 L 04/17/23 07:13 FiO2 Intake & Output 04/16/23 04/17/23 04/17/23 18:59 06:59 18:59 Output Total 600 300 Balance -600 -300 Output: Urine 600 300 Other: Voiding Method Bedside Commode Bedside Commode Urinal Urinal # Voids 300 - Exam GENERAL DESCRIPTION: An elderly male lying in bed in no distress RESPIRATORY SYSTEM: Unlabored breathing , decreased breath sounds at bases HEART: S1 S2 regular rate and rhythm , ABDOMEN: Soft , no tenderness EXTREMITIES: Left fifth toe amputation site wound is covered with a wound VAC - Labs CBC & Chem 7: 04/18/23 06:36 04/18/23 06:36 Labs: Abnormal Lab Results - Last 24 Hours (Table) 04/16/23 04/16/23 04/16/23 Range/Units 06:45 06:45 11:38 WBC 11.89 H (4.50-10.00) X 10*3/uL RBC 2.64 L (4.40-5.60) X 10*6/uL Hgb 7.3 L (13.0-17.0) g/dL Hct 24.4 L (39.6-50.0) % MCHC 29.9 L (32.0-37.0) g/dL RDW 14.9 H (11.5-14.5) % BUN/Creatinine Ratio 21.00 H (12.00-20.00) Ratio Glucose 136 H (70-110) mg/dL POC Glucose (mg/dL) 198 H (70-110) mg/dL Total Bilirubin <0.2 L (0.3-1.2) mg/dL Total Protein 5.8 L (6.2-8.2) g/dL Albumin 3.3 L (3.8-4.9) g/dL Albumin/Globulin Ratio 1.32 L (1.60-3.17) Ratio 04/16/23 04/16/23 04/17/23 Range/Units 16:47 20:09 07:11 WBC (4.50-10.00) X 10*3/uL RBC (4.40-5.60) X 10*6/uL Hgb (13.0-17.0) g/dL Hct (39.6-50.0) % MCHC (32.0-37.0) g/dL RDW (11.5-14.5) % BUN/Creatinine Ratio (12.00-20.00) Ratio Glucose (70-110) mg/dL POC Glucose (mg/dL) 332 H 362 H 226 H (70-110) mg/dL Total Bilirubin (0.3-1.2) mg/dL Total Protein (6.2-8.2) g/dL Albumin (3.8-4.9) g/dL Albumin/Globulin Ratio (1.60-3.17) Ratio Microbiology - Last 24 Hours (Table) 04/11/23 07:26 Blood Culture - Final Blood Assessment and Plan (1) MSSA (methicillin susceptible Staphylococcus aureus) infection Current Visit: Yes Status: Acute Code(s): A49.01 - METHICILLIN SUSCEP STAPH INFECTION, UNSP SITE SNOMED Code(s): 917911147 (2) Diabetic infection of left foot Current Visit: No Status: Acute Code(s): E11.628 - TYPE 2 DIABETES MELLITUS WITH OTHER SKIN COMPLICATIONS; L08.9 - LOCAL INFECTION OF THE SKIN AND SUBCUTANEOUS TISSUE, UNSP SNOMED Code(s): 70010900 (3) Type 2 diabetes mellitus with foot ulcer Current Visit: No Status: Acute Code(s): E11.621 - TYPE 2 DIABETES MELLITUS WITH FOOT ULCER; L97.509 - NON-PRESSURE CHRONIC ULCER OTH PRT UNSP FOOT W UNSP SEVERITY SNOMED Code(s): 804054420 Plan: 1patient with a chronic nonhealing wound to the left foot lateral border in this patient who did have a history of left fifth toe gangrene status post amputation back on February 09, 2023 at that point he did have Morganella bacteremia and local culture positive for Enterococcus and Morganella for the patient has completed course of IV antibiotic therapy, patient now with a nonhealing wound and he did have a culture from the same area growing MSSA and anaerobic gram-positive cocci 2patient did have mild elevated inflammatory markers with a sed rate of 42. 3patient to continue cefazolin and Flagyl local wound care with a wound VAC and monitor clinical course closely Dictation was produced using [employer] dictation software. please excuse any grammatical, word or spelling errors.
--- NOTE | 2023-04-18 18:11 | P.PN ---
Subjective Progress Note Date: 04/18/23 Principal diagnosis: Reason for follow-up is left diabetic foot ulcer with recent culture positive for MSSA and anaerobes Patient is a 67-year-old male with a past medical history significant for hypertension hyperlipidemia [place] diabetes mellitus dementia patient was rece ntly admitted to this facility with left fifth toe gangrene status post amputation he did have a Morganella bacteremia at that point the patient completed his antibiotic therapy patient to follow at [facility] apparently the patient have a culture done on 03/24/2023 that grew MSSA and anaerobes patient not very clear if he received any treatment for the presenting to the hospital with hemoglobin of 6.3 On today's evaluation that is 04/18/2023 the patient continues to be afebrile, the patient is breathing comfortably on 2 L nasal cannula oxygen patient remains to be restful and sleepy no vomiting diarrhea or any other changes reported by the sitter at the bedside Patient white count is 11.59, creatinine 1.0, blood culture this admission has been negative Objective - Vital Signs Vital signs: Vital Signs Temp 97.5 F L 04/18/23 12:44 Pulse 87 04/18/23 12:44 Resp 16 04/18/23 12:44 BP 119/66 04/18/23 12:44 Pulse Ox 98 04/18/23 12:44 FiO2 Intake & Output 04/17/23 04/18/23 04/18/23 18:59 06:59 18:59 Intake Total 50 Output Total 300 275 Balance -250 -275 Intake: Intake, IV Titration 50 Amount ceFAZolin 2 gm In Sodium 50 Chloride 0.9% 50 ml @ 100 mls/hr IVPB Q8HR [facility] Rx# :[id number] Output: Urine 300 275 Other: Voiding Method Bedside Commode Bedside Commode Bedside Commode Urinal Urinal Urinal # Voids 1 1 # Bowel Movements 1 - Exam GENERAL DESCRIPTION: An elderly male lying in bed in no distress RESPIRATORY SYSTEM: Unlabored breathing , decreased breath sounds at bases HEART: S1 S2 regular rate and rhythm , ABDOMEN: Soft , no tenderness EXTREMITIES: Left fifth toe amputation site wound is covered with a wound VAC - Labs CBC & Chem 7: 04/18/23 06:36 04/18/23 06:36 Labs: Abnormal Lab Results - Last 24 Hours (Table) 04/17/23 04/18/23 04/18/23 Range/Units 20:04 06:36 06:36 WBC 11.59 H (4.50-10.00) X 10*3/uL RBC 2.59 L (4.40-5.60) X 10*6/uL Hgb 7.2 L (13.0-17.0) g/dL Hct 23.9 L (39.6-50.0) % MCHC 30.1 L (32.0-37.0) g/dL RDW 15.2 H (11.5-14.5) % Immature Gran # 0.14 H (0.00-0.04) X 10*3/uL Neutrophils # 9.49 H (1.80-7.70) X 10*3/uL Eosinophils # 0.03 L (0.04-0.35) X 10*3/uL BUN 27.1 H (9.0-27.0) mg/dL BUN/Creatinine Ratio 27.10 H (12.00-20.00) Ratio Glucose 206 H (70-110) mg/dL POC Glucose (mg/dL) 295 H (70-110) mg/dL 04/18/23 04/18/23 04/18/23 Range/Units 07:10 11:57 17:22 WBC (4.50-10.00) X 10*3/uL RBC (4.40-5.60) X 10*6/uL Hgb (13.0-17.0) g/dL Hct (39.6-50.0) % MCHC (32.0-37.0) g/dL RDW (11.5-14.5) % Immature Gran # (0.00-0.04) X 10*3/uL Neutrophils # (1.80-7.70) X 10*3/uL Eosinophils # (0.04-0.35) X 10*3/uL BUN (9.0-27.0) mg/dL BUN/Creatinine Ratio (12.00-20.00) Ratio Glucose (70-110) mg/dL POC Glucose (mg/dL) 230 H 247 H 440 H (70-110) mg/dL Assessment and Plan (1) MSSA (methicillin susceptible Staphylococcus aureus) infection Current Visit: Yes Status: Acute Code(s): A49.01 - METHICILLIN SUSCEP STAPH INFECTION, UNSP SITE SNOMED Code(s): 782108304 (2) Diabetic infection of left foot Current Visit: No Status: Acute Code(s): E11.628 - TYPE 2 DIABETES MELLITUS WITH OTHER SKIN COMPLICATIONS; L08.9 - LOCAL INFECTION OF THE SKIN AND SUBCUTANEOUS TISSUE, UNSP SNOMED Code(s): 03995588 (3) Type 2 diabetes mellitus with foot ulcer Current Visit: No Status: Acute Code(s): E11.621 - TYPE 2 DIABETES MELLITUS WITH FOOT ULCER; L97.509 - NON-PRESSURE CHRONIC ULCER OTH PRT UNSP FOOT W UNSP SEVERITY SNOMED Code(s): 336689924 Plan: 1patient with a chronic nonhealing wound to the left foot lateral border in this patient who did have a history of left fifth toe gangrene status post amputation back on February 09, 2023 at that point he did have Morganella bacteremia and local culture positive for Enterococcus and Morganella for the patient has completed course of IV antibiotic therapy, patient now with a nonhealing wound and he did have a culture from the same area growing MSSA and anaerobic gram-positive cocci 2patient did have mild elevated inflammatory markers with a sed rate of 42. 3patient currently covered with the cefazolin Flagyl for his left diabetic foot infection local wound care to continue with the wound VAC and monitor his clinical course closely Dictation was produced using [employer] dictation software. please excuse any grammatical, word or spelling errors. Time with Patient: Less than 30
[2023-04-18 20:23] LABS: Glucose,Whole Blood 315 mg/dL (70-110)
[2023-04-18] MEDS ORDERED: ESCITALOPRAM 10 MG TAB PO ONE (21:00)
[2023-04-18] MEDS: TOPIRAMATE 25 MG TAB PO SCH (21:18)
[2023-04-18] MEDS: INSULIN DETEMIR (LEVEMIR) 100 UNIT/ML SYR SQ SCH (21:18)
[2023-04-18] MEDS: PALIPERIDONE 3 MG TAB.ER.24 PO SCH (21:18)
[2023-04-18] MEDS: ATORVASTATIN 80 MG TAB PO SCH (21:18)
[2023-04-18] MEDS: MELATONIN 3 MG TABLET PO SCH (21:18)
[2023-04-19 07:28] LABS: Glucose,Whole Blood 194 mg/dL (70-110)
[2023-04-19] MEDS: IPRATROPIUM-ALBUTEROL 3 ML NEB INHALATION SCH ×4 (07:54→18:15)
[2023-04-19] MEDS: LACTOBACILLUS ACIDOPHILUS/PECT 1 EACH CAPSULE PO SCH ×2 (08:41→18:11)
[2023-04-19] MEDS: DICYCLOMINE 10 MG CAP PO SCH ×3 (08:41→18:11)
[2023-04-19] MEDS: INSULIN ASPART (NovoLOG) 100 UNIT/ML VIAL SQ SCH ×5 (08:41→21:21)
[2023-04-19] MEDS: ASPIRIN 81 MG PO SCH (08:42)
[2023-04-19] MEDS: ISOSORBIDE MONONITRATE ER 30 MG TAB.ER.24H PO SCH (08:42)
[2023-04-19] MEDS: COLCHICINE 0.6 MG EACH PO SCH ×2 (08:42→21:07)
[2023-04-19] MEDS: SUCRALFATE 1 GM TAB PO SCH ×4 (08:42→21:23)
[2023-04-19] MEDS: FAMOTIDINE 20 MG TAB PO SCH ×2 (08:42→21:23)
[2023-04-19] MEDS: FERROUS SULFATE 325 MG TAB PO SCH (08:42)
[2023-04-19] MEDS: PANTOPRAZOLE 40 MG/10 ML VIAL IVP SCH ×2 (08:43→21:23)
[2023-04-19] MEDS: METOPROLOL TARTRATE 12.5 MG TAB PO SCH ×2 (08:43→21:23)
[2023-04-19] MEDS: metroNIDAZOLE 500 MG TAB PO SCH ×3 (08:43→21:23)
[2023-04-19] MEDS: predniSONE 20 MG TAB PO SCH (08:43)
[2023-04-19 12:54] LABS: Glucose,Whole Blood 272 mg/dL (70-110)
--- NOTE | 2023-04-19 13:37 | P.PN ---
Subjective Progress Note Date: 04/19/23 CHIEF COMPLAINT: Anemia HISTORY OF PRESENT ILLNESS: Patient is status post colonoscopy yesterday which revealed normal findings. Patient status post EGD revealing erosive gastritis. Biopsy result revealing iron pill gastritis. Patient has bedside sitter for suicide precautions. Patient had brown BM. No new complaints. Last HGB 7.2. No sign of GI bleed. PHYSICAL EXAM: VITAL SIGNS: Reviewed. GENERAL: Well-developed in no acute distress. ABDOMEN: Soft. Nondistended. Nontender. ASSESSMENT: 1. Anemia 2. Status post EGD revealing erosive gastritis and Colonoscopy was normal PLAN: -Continue Protonix -Continue supportive care Physician Geophysical Data Technician note has been reviewed by physician. Signing provider agrees with the documented findings, assessment, and plan of care. Objective - Vital Signs Vital signs: Vital Signs Temp 97.7 F 04/19/23 07:30 Pulse 78 04/19/23 11:52 Resp 17 04/19/23 07:30 BP 130/76 04/19/23 07:30 Pulse Ox 99 04/19/23 07:56 FiO2 Intake & Output 04/18/23 04/19/23 04/19/23 18:59 06:59 18:59 Intake Total 590 Output Total 275 Balance -275 590 Intake: Oral 590 Output: Urine 275 Other: Voiding Method Bedside Commode Bedside Commode Bedside Commode Urinal Urinal Urinal # Voids 1 1 # Bowel Movements 1 - Labs CBC & Chem 7: 04/18/23 06:36 04/18/23 06:36 Labs: Abnormal Lab Results - Last 24 Hours (Table) 04/18/23 04/18/23 04/19/23 Range/Units 17:22 20:21 07:27 POC Glucose (mg/dL) 440 H 315 H 194 H (70-110) mg/dL 04/19/23 Range/Units 12:53 POC Glucose (mg/dL) 272 H (70-110) mg/dL
[2023-04-19] MEDS ORDERED: NA PHOS,M-B/NA PHOS,DI-BA 133 ML ENEMA RECTAL PRN (14:16)
[2023-04-19] MEDS ORDERED: MAGNESIUM HYDROXIDE 2,400 MG/30 ML CUP PO PRN (14:16)
--- NOTE | 2023-04-19 14:36 | XR ---
EXAMINATION TYPE: XR chest 1V portable DATE OF EXAM: 04/19/2023 COMPARISON: 03/31/2023 INDICATION: CHF and anemia TECHNIQUE: Single frontal view of the chest is obtained. FINDINGS: The heart size is normal. The pulmonary vasculature is normal. The lungs are clear. IMPRESSION: 1. No acute pulmonary process.
[2023-04-19 16:31] LABS: Glucose,Whole Blood 413 mg/dL (70-110)
[2023-04-19] MEDS: SODIUM FERRIC GLUCONAT-SUCROSE 125 MG in SODIUM CHLORIDE 0.9% 100 ML IVPB SCH (16:34)
[2023-04-19 20:21] LABS: Glucose,Whole Blood 346 mg/dL (70-110)
[2023-04-19] MEDS: INSULIN DETEMIR (LEVEMIR) 100 UNIT/ML SYR SQ SCH (21:21)
[2023-04-19] MEDS: TOPIRAMATE 25 MG TAB PO SCH (21:23)
[2023-04-19] MEDS: MELATONIN 3 MG TABLET PO SCH (21:23)
[2023-04-19] MEDS: ATORVASTATIN 80 MG TAB PO SCH (21:23)
[2023-04-19] MEDS: PALIPERIDONE 3 MG TAB.ER.24 PO SCH (21:23)
[2023-04-19] MEDS: ESCITALOPRAM 20 MG TAB PO SCH (21:23)
[2023-04-19] MEDS: HYDROcodone/APAP 5-325MG 1 EACH TAB PO PRN (21:29)
[2023-04-19] MEDS ORDERED: FUROSEMIDE 10 MG/ML 2 ML VIAL IV ONE (23:00)
[2023-04-20 03:27] LABS: % Iron Saturation 32.65 (15.00-50.00)
[2023-04-20] MEDS: FUROSEMIDE 40 MG TAB PO SCH ×2 (06:04→12:58)
[2023-04-20 07:09] LABS: Glucose,Whole Blood 193 mg/dL (70-110)
[2023-04-20] MEDS: IPRATROPIUM-ALBUTEROL 3 ML NEB INHALATION SCH ×4 (07:56→21:48)
[2023-04-20] MEDS: ISOSORBIDE MONONITRATE ER 30 MG TAB.ER.24H PO SCH (09:09)
[2023-04-20] MEDS: SUCRALFATE 1 GM TAB PO SCH ×4 (09:10→20:47)
[2023-04-20] MEDS: ASPIRIN 81 MG PO SCH (09:10)
[2023-04-20] MEDS: PANTOPRAZOLE 40 MG/10 ML VIAL IVP SCH ×2 (09:10→20:48)
[2023-04-20] MEDS: metroNIDAZOLE 500 MG TAB PO SCH ×3 (09:10→20:48)
[2023-04-20] MEDS: DICYCLOMINE 10 MG CAP PO SCH ×3 (09:10→17:48)
[2023-04-20] MEDS: METOPROLOL TARTRATE 12.5 MG TAB PO SCH ×2 (09:10→20:47)
[2023-04-20] MEDS: FAMOTIDINE 20 MG TAB PO SCH ×2 (09:10→20:47)
[2023-04-20] MEDS: LACTOBACILLUS ACIDOPHILUS/PECT 1 EACH CAPSULE PO SCH ×2 (09:10→17:48)
[2023-04-20] MEDS: FERROUS SULFATE 325 MG TAB PO SCH (09:10)
[2023-04-20] MEDS: predniSONE 20 MG TAB PO SCH (09:10)
[2023-04-20] MEDS: INSULIN ASPART (NovoLOG) 100 UNIT/ML VIAL SQ SCH ×7 (09:11→20:47)
[2023-04-20] MEDS: COLCHICINE 0.6 MG EACH PO SCH ×2 (09:14→23:22)
[2023-04-20] MEDS: SODIUM FERRIC GLUCONAT-SUCROSE 125 MG in SODIUM CHLORIDE 0.9% 100 ML IVPB SCH (10:15)
[2023-04-20 10:48] LABS: Basophils # (A) 0.01 X 10*3/uL (0.00-0.10); Basophils % (A) 0.1 %; Eosinophils # (A) 0 X 10*3/uL (0.04-0.35); Eosinophils % (A) 0 %; HCT 26.5 % (39.6-50.0); Lymphocytes % (A) 7.4 %; MCH 27.9 pg (27.0-32.0); MCHC 30.2 g/dL (32.0-37.0); MCV 92.3 FL (80.0-97.0); Mean Platelet Volume 10.4 FL (9.5-12.2); Monocytes # (A) 0.54 X 10*3/uL (0.20-1.00); NRBC Per 100 WBC 0.02 X 10*3/uL (0.00-0.01); Neutrophils # (A) 9.28 X 10*3/uL (1.80-7.70); Neutrophils % (A) 85.2 %; Platelet Count 248 X 10*3/uL (140-440); RBC 2.87 X 10*6/uL (4.40-5.60); RDW 15.6 % (11.5-14.5); WBC 10.88 X 10*3/uL (4.50-10.00)
[2023-04-20 12:00] LABS: Glucose,Whole Blood 169 mg/dL (70-110)
--- NOTE | 2023-04-20 12:41 | PN ---
PROGRESS NOTE DATE OF SERVICE: 04/19/2023 SUBJECTIVE: This 67-year-old gentleman was returned from the senior care with anemia with fecal occult blood positive, had normal colonoscopy. The EGD showed erosive gastritis. The patient is empirically treated. The patient also had nonhealing wound on the left foot, which was connected to the wound VAC and multiple consultants are following the patient closely. The patient has also had some suicidal thoughts, Psychiatry is also following the patient closely. The hemoglobin is 7.2 yesterday. There is no history of any fever, rigors, or chills. PAST MEDICAL HISTORY: Reviewed. REVIEW OF SYSTEMS: A 14-point review is negative except as mentioned. CURRENT MEDICATIONS: Reviewed include [place], dose and rest of medications reviewed. PHYSICAL EXAMINATION: VITAL SIGNS. Pulse is 82, blood pressure is 130/73, respirations 17. HEENT: Conjunctivae pale. NECK: No jugular venous distention. CARDIOVASCULAR: S1, S2. RESPIRATIONS: Breath sounds diminished at the bases. ABDOMEN: Soft. NERVOUS SYSTEM: Nonfocal. LEGS: Nonhealing wound with wound VAC. LABORATORY DATA: Reviewed, hemoglobin 7.4. ASSESSMENT: 1. Anemia possibly secondary to GI blood loss and erosive gastritis. 2. Status post EGD colonoscopy. 3. Symptomatic anemia. 4. Suicidal ideations. 5. Fecal occult blood positive. 6. History of left foot wound with osteomyelitis with amputation of the left fifth toe on wound VAC. 7. Peripheral vascular disease. 8. Multiple medical issues. RECOMMENDATIONS AND DISCUSSION: I recommended to continue current management, continue symptomatic treatment, otherwise I would recommend 1 unit transfusion for symptomatic anemia with Lasix and psychiatric evaluation. Continue the antibiotics. The patient would also require a capsule endoscopy possibly as an outpatient from Gastroenterology. If the anemia does not improve and also recommend iron studies and course of IV iron also. See orders for details. Further recommendations to follow. MMODL / IJN: [id number] /
--- NOTE | 2023-04-20 13:45 | P.PN ---
Subjective Progress Note Date: 04/19/23 Principal diagnosis: Reason for follow-up is left diabetic foot ulcer with recent culture positive for MSSA and anaerobes Patient is a 67-year-old male with a past medical history significant for hypertension hyperlipidemia [place] diabetes mellitus dementia patient was rece ntly admitted to this facility with left fifth toe gangrene status post amputation he did have a Morganella bacteremia at that point the patient completed his antibiotic therapy patient to follow at [facility] apparently the patient have a culture done on 03/24/2023 that grew MSSA and anaerobes patient not very clear if he received any treatment for the presenting to the hospital with hemoglobin of 6.3 On today's evaluation that is 04/19/2023 the patient remains to be afebrile, the patient is breathing comfortably on 2 L nasal cannula oxygen patient denies any chest pain or shortness of breath he did have some cough not bring up any sputum no nausea vomiting abdominal pain and denies pain to the left foot wound area Patient white count is 11.59, creatinine 1.0 as of 04/18/2023 no lab draw today, blood culture this admission has been negative Objective - Vital Signs Vital signs: Vital Signs Temp 97.7 F 04/19/23 07:30 Pulse 78 04/19/23 11:52 Resp 17 04/19/23 07:30 BP 130/76 04/19/23 07:30 Pulse Ox 99 04/19/23 07:56 FiO2 Intake & Output 04/18/23 04/19/23 04/19/23 18:59 06:59 18:59 Intake Total 590 Output Total 275 Balance -275 590 Intake: Oral 590 Output: Urine 275 Other: Voiding Method Bedside Commode Bedside Commode Bedside Commode Urinal Urinal Urinal # Voids 1 1 # Bowel Movements 1 - Exam GENERAL DESCRIPTION: An elderly male lying in bed in no distress RESPIRATORY SYSTEM: Unlabored breathing , decreased breath sounds at bases HEART: S1 S2 regular rate and rhythm , ABDOMEN: Soft , no tenderness EXTREMITIES: Left fifth toe amputation site wound is covered with a wound VAC - Labs CBC & Chem 7: 04/20/23 06:00 04/18/23 06:36 Labs: Abnormal Lab Results - Last 24 Hours (Table) 04/18/23 04/18/23 04/19/23 Range/Units 17:22 20:21 07:27 POC Glucose (mg/dL) 440 H 315 H 194 H (70-110) mg/dL 04/19/23 Range/Units 12:53 POC Glucose (mg/dL) 272 H (70-110) mg/dL Assessment and Plan (1) MSSA (methicillin susceptible Staphylococcus aureus) infection Current Visit: Yes Status: Acute Code(s): A49.01 - METHICILLIN SUSCEP STAPH INFECTION, UNSP SITE SNOMED Code(s): 362150967 (2) Diabetic infection of left foot Current Visit: No Status: Acute Code(s): E11.628 - TYPE 2 DIABETES MELLITUS WITH OTHER SKIN COMPLICATIONS; L08.9 - LOCAL INFECTION OF THE SKIN AND SUBCUTANEOUS TISSUE, UNSP SNOMED Code(s): 17798629 (3) Type 2 diabetes mellitus with foot ulcer Current Visit: No Status: Acute Code(s): E11.621 - TYPE 2 DIABETES MELLITUS WITH FOOT ULCER; L97.509 - NON-PRESSURE CHRONIC ULCER OTH PRT UNSP FOOT W UNSP SEVERITY SNOMED Code(s): 421255366 Plan: 1patient with a chronic nonhealing wound to the left foot lateral border in this patient who did have a history of left fifth toe gangrene status post amputation back on February 09, 2023 at that point he did have Morganella bacteremia and local culture positive for Enterococcus and Morganella for the patient has completed course of IV antibiotic therapy, patient now with a nonhealing wound and he did have a culture from the same area growing MSSA and anaerobic gram-positive cocci 2patient did have mild elevated inflammatory markers with a sed rate of 42. 3patient to continue with the cefazolin Flagyl for his left diabetic foot infection local wound care to continue with the wound VAC and monitor his clinical course closely Dictation was produced using [employer] dictation software. please excuse any grammatical, word or spelling errors. Time with Patient: Less than 30
--- NOTE | 2023-04-20 13:46 | P.PN ---
Subjective Progress Note Date: 04/20/23 Principal diagnosis: Reason for follow-up is left diabetic foot ulcer with recent culture positive for MSSA and anaerobes Patient is a 67-year-old male with a past medical history significant for hypertension hyperlipidemia [place] diabetes mellitus dementia patient was rece ntly admitted to this facility with left fifth toe gangrene status post amputation he did have a Morganella bacteremia at that point the patient completed his antibiotic therapy patient to follow at [facility] [place] apparently the patient have a culture done on 03/24/2023 that grew MSSA and anaerobes patient not very clear if he received any treatment for the presenting to the hospital with hemoglobin of 6.3 On today's evaluation that is 04/20/2023 the patient continues to be afebrile, t he patient is breathing comfortably on 2 L nasal cannula oxygen patient denies any chest pain or shortness of breath, the patient occasional dry cough, no nausea vomiting abdominal pain and denies pain to the left foot wound area, asking for some cream for the head Patient white count is 10.88 creatinine is 1.0, blood culture this admission has been negative Objective - Vital Signs Vital signs: Vital Signs Temp 98.2 F 04/20/23 06:47 Pulse 84 04/20/23 08:06 Resp 16 04/20/23 06:47 BP 143/80 04/20/23 06:47 Pulse Ox 98 04/20/23 06:47 FiO2 Intake & Output 04/19/23 04/20/23 04/20/23 18:59 06:59 18:59 Intake Total 100 310 Output Total 400 1075 500 Balance -300 -765 -500 Intake: Intake, IV Titration 100 Amount Sodium Ferric Gluconat- 100 Sucrose 125 mg In Sodium Chloride 0.9% 100 ml @ 100 mls/hr IVPB DAILY [facility] Rx#:[id number] Blood Product 310 Rc As-1 Unit 310 [id number] Output: Urine 400 1075 500 Other: Voiding Method Bedside Commode Bedside Commode Urinal Urinal # Voids 1 # Bowel Movements 1 - Exam GENERAL DESCRIPTION: An elderly male lying in bed in no distress RESPIRATORY SYSTEM: Unlabored breathing , decreased breath sounds at bases HEART: S1 S2 regular rate and rhythm , ABDOMEN: Soft , no tenderness EXTREMITIES: Left fifth toe amputation site wound is covered with a wound VAC - Labs CBC & Chem 7: 04/20/23 06:00 04/18/23 06:36 Labs: Abnormal Lab Results - Last 24 Hours (Table) 04/19/23 04/19/23 04/19/23 Range/Units 14:30 14:30 16:30 WBC (4.50-10.00) X 10*3/uL RBC (4.40-5.60) X 10*6/uL Hgb (13.0-17.0) g/dL Hct (39.6-50.0) % MCHC (32.0-37.0) g/dL RDW (11.5-14.5) % Immature Gran # (0.00-0.04) X 10*3/uL Neutrophils # (1.80-7.70) X 10*3/uL Lymphocytes # (0.90-5.00) X 10*3/uL Eosinophils # (0.04-0.35) X 10*3/uL NRBC/100 WBC Diff (0.00-0.01) X 10*3/uL POC Glucose (mg/dL) 413 H (70-110) mg/dL Iron 64 L (65-175) UG/DL TIBC 196 L (228-460) UG/DL Transferrin 140.0 L (204.0-354.0) mg/dL Crossmatch See Detail 04/19/23 04/20/23 04/20/23 Range/Units 20:20 06:00 07:07 WBC 10.88 H (4.50-10.00) X 10*3/uL RBC 2.87 L (4.40-5.60) X 10*6/uL Hgb 8.0 L (13.0-17.0) g/dL Hct 26.5 L (39.6-50.0) % MCHC 30.2 L (32.0-37.0) g/dL RDW 15.6 H (11.5-14.5) % Immature Gran # 0.25 H (0.00-0.04) X 10*3/uL Neutrophils # 9.28 H (1.80-7.70) X 10*3/uL Lymphocytes # 0.80 L (0.90-5.00) X 10*3/uL Eosinophils # 0 L (0.04-0.35) X 10*3/uL NRBC/100 WBC Diff 0.02 H (0.00-0.01) X 10*3/uL POC Glucose (mg/dL) 346 H 193 H (70-110) mg/dL Iron (65-175) UG/DL TIBC (228-460) UG/DL Transferrin (204.0-354.0) mg/dL Crossmatch 04/20/23 Range/Units 11:58 WBC (4.50-10.00) X 10*3/uL RBC (4.40-5.60) X 10*6/uL Hgb (13.0-17.0) g/dL Hct (39.6-50.0) % MCHC (32.0-37.0) g/dL RDW (11.5-14.5) % Immature Gran # (0.00-0.04) X 10*3/uL Neutrophils # (1.80-7.70) X 10*3/uL Lymphocytes # (0.90-5.00) X 10*3/uL Eosinophils # (0.04-0.35) X 10*3/uL NRBC/100 WBC Diff (0.00-0.01) X 10*3/uL POC Glucose (mg/dL) 169 H (70-110) mg/dL Iron (65-175) UG/DL TIBC (228-460) UG/DL Transferrin (204.0-354.0) mg/dL Crossmatch Assessment and Plan (1) MSSA (methicillin susceptible Staphylococcus aureus) infection Current Visit: Yes Status: Acute Code(s): A49.01 - METHICILLIN SUSCEP STAPH INFECTION, UNSP SITE SNOMED Code(s): 805754092 (2) Diabetic infection of left foot Current Visit: No Status: Acute Code(s): E11.628 - TYPE 2 DIABETES MELLITUS WITH OTHER SKIN COMPLICATIONS; L08.9 - LOCAL INFECTION OF THE SKIN AND SUBCUTANEOUS TISSUE, UNSP SNOMED Code(s): 67240392 (3) Type 2 diabetes mellitus with foot ulcer Current Visit: No Status: Acute Code(s): E11.621 - TYPE 2 DIABETES MELLITUS WITH FOOT ULCER; L97.509 - NON-PRESSURE CHRONIC ULCER OTH PRT UNSP FOOT W UNSP SEVERITY SNOMED Code(s): 855670954 Plan: 1patient with a chronic nonhealing wound to the left foot lateral border in this patient who did have a history of left fifth toe gangrene status post amputation back on February 09, 2023 at that point he did have Morganella bacteremia and local culture positive for Enterococcus and Morganella for the patient has completed course of IV antibiotic therapy, patient now with a nonhealing wound and he did have a culture from the same area growing MSSA and anaerobic gram-positive cocci 2patient did have mild elevated inflammatory markers with a sed rate of 42. 3patient remains to be afebrile the patient white count almost normalized, patient to continue with the cefazolin Flagyl for his left diabetic foot infection local wound care to continue with the wound VAC and monitor his clinical course closely Dictation was produced using [employer] dictation software. please excuse any grammatical, word or spelling errors. Time with Patient: Less than 30
--- NOTE | 2023-04-20 14:12 | P.PN ---
Subjective Progress Note Date: 04/20/23 CHIEF COMPLAINT: Anemia HISTORY OF PRESENT ILLNESS: Patient is status post colonoscopy which revealed normal findings. Patient status post EGD revealing erosive gastritis. Biopsy result revealing iron pill gastritis. Patient has bedside sitter for suicide precautions. Patient had brown BMs. No new complaints. HGB 8.0 PHYSICAL EXAM: VITAL SIGNS: Reviewed. GENERAL: Well-developed in no acute distress. ABDOMEN: Soft. Nondistended. Nontender. ASSESSMENT: 1. Anemia 2. Status post EGD revealing erosive gastritis and Colonoscopy was normal PLAN: -Continue Protonix -Continue supportive care Physician Supervisor Refining note has been reviewed by physician. Signing provider agrees with the documented findings, assessment, and plan of care. Objective - Vital Signs Vital signs: Vital Signs Temp 98.2 F 04/20/23 06:47 Pulse 84 04/20/23 08:06 Resp 16 04/20/23 06:47 BP 143/80 04/20/23 06:47 Pulse Ox 98 04/20/23 06:47 FiO2 Intake & Output 04/19/23 04/20/23 04/20/23 18:59 06:59 18:59 Intake Total 100 310 Output Total 400 1075 500 Balance -300 -765 -500 Intake: Intake, IV Titration 100 Amount Sodium Ferric Gluconat- 100 Sucrose 125 mg In Sodium Chloride 0.9% 100 ml @ 100 mls/hr IVPB DAILY [facility] Rx#:[id number] Blood Product 310 Rc As-1 Unit 310 [id number] Output: Urine 400 1075 500 Other: Voiding Method Bedside Commode Bedside Commode Urinal Urinal # Voids 1 # Bowel Movements 1 - Labs CBC & Chem 7: 04/20/23 06:00 04/18/23 06:36 Labs: Abnormal Lab Results - Last 24 Hours (Table) 04/19/23 04/19/23 04/19/23 Range/Units 14:30 14:30 16:30 WBC (4.50-10.00) X 10*3/uL RBC (4.40-5.60) X 10*6/uL Hgb (13.0-17.0) g/dL Hct (39.6-50.0) % MCHC (32.0-37.0) g/dL RDW (11.5-14.5) % Immature Gran # (0.00-0.04) X 10*3/uL Neutrophils # (1.80-7.70) X 10*3/uL Lymphocytes # (0.90-5.00) X 10*3/uL Eosinophils # (0.04-0.35) X 10*3/uL NRBC/100 WBC Diff (0.00-0.01) X 10*3/uL POC Glucose (mg/dL) 413 H (70-110) mg/dL Iron 64 L (65-175) UG/DL TIBC 196 L (228-460) UG/DL Transferrin 140.0 L (204.0-354.0) mg/dL Crossmatch See Detail 04/19/23 04/20/23 04/20/23 Range/Units 20:20 06:00 07:07 WBC 10.88 H (4.50-10.00) X 10*3/uL RBC 2.87 L (4.40-5.60) X 10*6/uL Hgb 8.0 L (13.0-17.0) g/dL Hct 26.5 L (39.6-50.0) % MCHC 30.2 L (32.0-37.0) g/dL RDW 15.6 H (11.5-14.5) % Immature Gran # 0.25 H (0.00-0.04) X 10*3/uL Neutrophils # 9.28 H (1.80-7.70) X 10*3/uL Lymphocytes # 0.80 L (0.90-5.00) X 10*3/uL Eosinophils # 0 L (0.04-0.35) X 10*3/uL NRBC/100 WBC Diff 0.02 H (0.00-0.01) X 10*3/uL POC Glucose (mg/dL) 346 H 193 H (70-110) mg/dL Iron (65-175) UG/DL TIBC (228-460) UG/DL Transferrin (204.0-354.0) mg/dL Crossmatch 04/20/23 Range/Units 11:58 WBC (4.50-10.00) X 10*3/uL RBC (4.40-5.60) X 10*6/uL Hgb (13.0-17.0) g/dL Hct (39.6-50.0) % MCHC (32.0-37.0) g/dL RDW (11.5-14.5) % Immature Gran # (0.00-0.04) X 10*3/uL Neutrophils # (1.80-7.70) X 10*3/uL Lymphocytes # (0.90-5.00) X 10*3/uL Eosinophils # (0.04-0.35) X 10*3/uL NRBC/100 WBC Diff (0.00-0.01) X 10*3/uL POC Glucose (mg/dL) 169 H (70-110) mg/dL Iron (65-175) UG/DL TIBC (228-460) UG/DL Transferrin (204.0-354.0) mg/dL Crossmatch
--- NOTE | 2023-04-20 15:49 | P.PN ---
Subjective Progress Note Date: 04/20/23 67-year-old gentleman with past medical history significant for hypertension, hyperlipidemia, diabetes, CAD, cardiomyopathy with an ejection fraction of 25- 30% who was sent to ER from [facility] for abnormal labs. Patient had blood work done at a facility and was found to have a low hemoglobin level of 6.3. Patient denies any complaint of any blood in the stool. There was no complain of any nausea or vomiting or any hematemesis. Denies any abdominal pain. Patient has a wound on his left leg with wound VAC that he thinks he picked and was bleeding. Denies any chest pain or shortness of breath. He was no complain of lightheadedness or dizziness. Because of these abnormal labs, patient was sent to the ER Initial lab work done in the ER showed WBC 8.7, hemoglobin 7, platelet count 317, sodium 140, potassium 4, BUN 81, creatinine 1.34, glucose 161, FOBT positive 04/17/2023 Patient is seen and evaluated sitting up in bed; sitter at bedside Vital signs are reviewed and stable with temperature of 98, pulse 93, respiration 24 and blood pressure 131/74 with saturation 96% on 2 L Patient has been evaluated by psychiatry; patient meets criteria for inpatient psych admission; recommended to avoid use of narcotics and sedatives; discontinue Seroquel and replace with paliperidone by mouth 3 mg daily at bedtime for psychosis/mood stabilization/insomnia, continue lexapro 10 mg daily for mood/anxiety. Seroquel twice a day when necessary for agitation/psychosis. Melatonin 3 mg daily at bedtime for sleep -Continue 1:1 sitter for safety and suicidal thoughts -Cannot leave AMA at this time. Patient will need a petition and certification if attempting to leave AMA. 04/18/2023 Patient is seen and evaluated sitting up in bed with sitter bedside psychiatry recommendations; patient does meet criteria for inpatient psychiatric admission; remains on medical floor for multiple medical problems; psych following for medication adjustment and further treatment patient with a chronic nonhealing wound to the left foot lateral border in this patient who did have a history of left fifth toe gangrene status post amputation back on February 09, 2023 at that point he did have Morganella bacteremia and local culture positive for Enterococcus and Morganella for the patient has completed course of IV antibiotic therapy, patient now with a nonhealing wound and he did have a culture from the same area growing MSSA and anaerobic gram- positive cocci patient did have mild elevated inflammatory markers with a sed rate of 42. the patient did get a PICC line he will continue with cefazolin and Flagyl local wound care with a wound VAC and will monitor his clinical course closely 04/20/2023 Patient is seen in follow-up this morning continues with a suicide sitter at the bedside awaiting follow-up and reevaluation from psychiatry after adjustments has been made. Patient was reporting suicidal ideation although is not currently reporting any thoughts of wanting to harm himself or others. Patient continues on IV antibiotics with infectious disease following an discontinued with a wound VAC [facility] and IV antibiotic therapy. Case management following as well awaiting on reevaluation from psychiatry as patient was reported to have met inpatient criteria guidelines. Patient does not meet criteria for inpatient psych here and would need outpatient referral services that can accommodate alf as well. Patient is afebrile with no reported chest pain or shortness of breath. Patient is tolerating diet with no reported nausea or vomiting. Review of systems: Constitutional: No reports of fatigue, fever, or chills Cardiovascular: No reports of chest pain or palpitations Respiratory: No reports of shortness of breath or cough GI: No reports of nausea, vomiting, or diarrhea : No reports of dysuria or retention Neurovascular: reports of generalized weakness Physical exam: GENERAL: The patient is asleep although arousable, alert and oriented x3, Well developed, well nourished. Obese HEENT: Pupils are round and equally reacting to light. EOMI. No scleral icterus. No conjunctival pallor. Normocephalic, atraumatic. No pharyngeal erythema. No th yromegaly. CARDIOVASCULAR: S1 and S2 muffled PULMONARY: Diminished breath sounds bilaterally otherwise. He Chest is clear to auscultation, no wheezing or crackles. ABDOMEN: Soft, obese. nontender, nondistended, normoactive bowel sounds. No palpable organomegaly. MUSCULOSKELETAL: Left foot wound VAC seen EXTREMITIES: No cyanosis, clubbing, bilateral pedal edema noted 1+ pitting. NEUROLOGICAL: Gross neurological examination did not reveal any focal deficits. Diffusely weak SKIN: No rashes. 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 involving the left SFA hypertension hyperlipidemia Hyperuricemia Acute gout COPD not in exacerbation chronic hypoxic respiratory failure on home O2 secondary to COPD Diabetes mellitus, type II, insulin-dependent, uncontrolled with hyperglycemia Obesity with a BMI of 30.6 GI prophylaxis DVT prophylaxis Full code Plan: Patient continue on IV antibiotics with infectious disease following in the form of cefazolin and Flagyl and will continue with wound VAC and wound care Awaiting follow-up reevaluation from psychiatry as patient was placed on suicidal ideation precautions with a suicide sitter at the bedside. Patient is not endorsing suicidal ideations at this time and has made adjustments to me dications. Nursing staff has notified 3 W. for reevaluation Case management following a waiting on psychiatric evaluation as well as patient was planning on returning to [facility] and there may be issues with returning there is patient is reporting suicidal ideation and median patient criteria as there are no psychiatric accommodations at that facility. Will await psychiatric reevaluation Continue to monitor Accu-Cheks before meals and at bedtime and will continue with current regimen and adjust medications if needed as patient's blood sugars remain uncontrolled Continue with the wound VAC and local wound care and elevate lower extremity swelling rest Recommend physical therapy evaluation daily Possible discharge planning in the next 24-48 hours The impression and plan of care has been dictated by Irina Gamez, nurse practitioner as directed. Dr. Gilbert MD I have performed a history and examination and MDM of this patient, discussed the same with the dictator, and agree with the dictator's assessment and plan as written ,documented as a scribe. Based on total visit time, I have performed more than 50% of the visit. Any additional findings or plans will be noted. Objective - Vital Signs Vital signs: Vital Signs Temp 97.8 F 04/20/23 12:43 Pulse 77 04/20/23 12:43 Resp 16 04/20/23 12:43 BP 129/74 04/20/23 12:43 Pulse Ox 98 04/20/23 12:43 FiO2 Intake & Output 04/19/23 04/20/23 04/20/23 18:59 06:59 18:59 Intake Total 100 310 Output Total 400 1075 1150 Balance -658 -313 -1152 Intake: Intake, IV Titration 100 Amount Sodium Ferric Gluconat- 100 Sucrose 125 mg In Sodium Chloride 0.9% 100 ml @ 100 mls/hr IVPB DAILY [facility] Rx#:[id number] Blood Product 310 Rc As-1 Unit 310 [id number] Output: Urine 400 1075 1150 Other: Voiding Method Bedside Commode Bedside Commode Urinal Urinal # Voids 2 # Bowel Movements 1 - Labs CBC & Chem 7: 04/20/23 06:00 04/18/23 06:36 Labs: Abnormal Lab Results - Last 24 Hours (Table) 04/19/23 04/19/23 04/19/23 Range/Units 14:30 14:30 16:30 WBC (4.50-10.00) X 10*3/uL RBC (4.40-5.60) X 10*6/uL Hgb (13.0-17.0) g/dL Hct (39.6-50.0) % MCHC (32.0-37.0) g/dL RDW (11.5-14.5) % Immature Gran # (0.00-0.04) X 10*3/uL Neutrophils # (1.80-7.70) X 10*3/uL Lymphocytes # (0.90-5.00) X 10*3/uL Eosinophils # (0.04-0.35) X 10*3/uL NRBC/100 WBC Diff (0.00-0.01) X 10*3/uL POC Glucose (mg/dL) 413 H (70-110) mg/dL Iron 64 L (65-175) UG/DL TIBC 196 L (228-460) UG/DL Transferrin 140.0 L (204.0-354.0) mg/dL Crossmatch See Detail 04/19/23 04/20/23 04/20/23 Range/Units 20:20 06:00 07:07 WBC 10.88 H (4.50-10.00) X 10*3/uL RBC 2.87 L (4.40-5.60) X 10*6/uL Hgb 8.0 L (13.0-17.0) g/dL Hct 26.5 L (39.6-50.0) % MCHC 30.2 L (32.0-37.0) g/dL RDW 15.6 H (11.5-14.5) % Immature Gran # 0.25 H (0.00-0.04) X 10*3/uL Neutrophils # 9.28 H (1.80-7.70) X 10*3/uL Lymphocytes # 0.80 L (0.90-5.00) X 10*3/uL Eosinophils # 0 L (0.04-0.35) X 10*3/uL NRBC/100 WBC Diff 0.02 H (0.00-0.01) X 10*3/uL POC Glucose (mg/dL) 346 H 193 H (70-110) mg/dL Iron (65-175) UG/DL TIBC (228-460) UG/DL Transferrin (204.0-354.0) mg/dL Crossmatch 04/20/23 Range/Units 11:58 WBC (4.50-10.00) X 10*3/uL RBC (4.40-5.60) X 10*6/uL Hgb (13.0-17.0) g/dL Hct (39.6-50.0) % MCHC (32.0-37.0) g/dL RDW (11.5-14.5) % Immature Gran # (0.00-0.04) X 10*3/uL Neutrophils # (1.80-7.70) X 10*3/uL Lymphocytes # (0.90-5.00) X 10*3/uL Eosinophils # (0.04-0.35) X 10*3/uL NRBC/100 WBC Diff (0.00-0.01) X 10*3/uL POC Glucose (mg/dL) 169 H (70-110) mg/dL Iron (65-175) UG/DL TIBC (228-460) UG/DL Transferrin (204.0-354.0) mg/dL Crossmatch
[2023-04-20 17:41] LABS: Glucose,Whole Blood 244 mg/dL (70-110)
[2023-04-20 20:40] LABS: Glucose,Whole Blood 334 mg/dL (70-110)
[2023-04-20] MEDS: INSULIN DETEMIR (LEVEMIR) 100 UNIT/ML SYR SQ SCH (20:47)
[2023-04-20] MEDS: MELATONIN 3 MG TABLET PO SCH (20:47)
[2023-04-20] MEDS: ATORVASTATIN 80 MG TAB PO SCH (20:47)
[2023-04-20] MEDS: TOPIRAMATE 25 MG TAB PO SCH (20:48)
[2023-04-20] MEDS: ESCITALOPRAM 20 MG TAB PO SCH (20:48)
[2023-04-20] MEDS: PALIPERIDONE 3 MG TAB.ER.24 PO SCH (20:48)
[2023-04-21] MEDS: FUROSEMIDE 40 MG TAB PO SCH ×2 (06:19→15:35)
[2023-04-21 07:15] LABS: Glucose,Whole Blood 177 mg/dL (70-110)
[2023-04-21] MEDS: IPRATROPIUM-ALBUTEROL 3 ML NEB INHALATION SCH ×4 (07:55→20:03)
[2023-04-21] MEDS: SODIUM FERRIC GLUCONAT-SUCROSE 125 MG in SODIUM CHLORIDE 0.9% 100 ML IVPB SCH (08:17)
[2023-04-21] MEDS: predniSONE 20 MG TAB PO SCH (08:19)
[2023-04-21] MEDS: PANTOPRAZOLE 40 MG/10 ML VIAL IVP SCH ×2 (08:19→21:34)
[2023-04-21] MEDS: metroNIDAZOLE 500 MG TAB PO SCH ×3 (08:19→21:33)
[2023-04-21] MEDS: LACTOBACILLUS ACIDOPHILUS/PECT 1 EACH CAPSULE PO SCH ×2 (08:20→15:35)
[2023-04-21] MEDS: COLCHICINE 0.6 MG EACH PO SCH ×2 (08:20→21:33)
[2023-04-21] MEDS: FAMOTIDINE 20 MG TAB PO SCH ×2 (08:20→21:33)
[2023-04-21] MEDS: ASPIRIN 81 MG PO SCH (08:20)
[2023-04-21] MEDS: METOPROLOL TARTRATE 12.5 MG TAB PO SCH ×2 (08:20→21:34)
[2023-04-21] MEDS: ISOSORBIDE MONONITRATE ER 30 MG TAB.ER.24H PO SCH (08:20)
[2023-04-21] MEDS: FERROUS SULFATE 325 MG TAB PO SCH (08:20)
[2023-04-21] MEDS: SUCRALFATE 1 GM TAB PO SCH ×4 (08:21→21:33)
[2023-04-21] MEDS: DICYCLOMINE 10 MG CAP PO SCH ×3 (08:21→15:35)
[2023-04-21] MEDS: INSULIN ASPART (NovoLOG) 100 UNIT/ML VIAL SQ SCH ×7 (08:21→21:37)
--- NOTE | 2023-04-21 11:54 | P.PN ---
Subjective Progress Note Date: 04/21/23 CHIEF COMPLAINT: Anemia HISTORY OF PRESENT ILLNESS: Patient is status post colonoscopy which revealed normal findings. Patient status post EGD revealing erosive gastritis. Biopsy result revealing iron pill gastritis. Patient has bedside sitter for suicide precautions. Patient had brown BMs. No new complaints. HGB 8.0 PHYSICAL EXAM: VITAL SIGNS: Reviewed. GENERAL: Well-developed in no acute distress. ABDOMEN: Soft. Nondistended. Nontender. ASSESSMENT: 1. Anemia 2. Status post EGD revealing erosive gastritis and Colonoscopy was normal PLAN: -Continue Protonix -Continue supportive care -Okay for discharge from surgical standpoint when medically cleared Physician Emergency Planning And Response Manager note has been reviewed by physician. Signing provider agrees with the documented findings, assessment, and plan of care. Objective - Vital Signs Vital signs: Vital Signs Temp 97.6 F 04/21/23 06:59 Pulse 80 04/21/23 10:08 Resp 18 04/21/23 10:08 BP 147/79 04/21/23 06:59 Pulse Ox 99 04/21/23 06:59 FiO2 Intake & Output 04/20/23 04/21/23 04/21/23 18:59 06:59 18:59 Intake Total 240 Output Total 1150 1515 2050 Balance -1150 -1275 -2049 Weight 117.027 kg 115.9 kg Intake: Oral 240 Output: Urine 1150 1515 2050 Other: Voiding Method Bedside Commode Bedside Commode Urinal Urinal # Voids 2 # Bowel Movements 1 - Labs CBC & Chem 7: 04/20/23 06:00 04/18/23 06:36 Labs: Abnormal Lab Results - Last 24 Hours (Table) 04/20/23 04/20/23 04/20/23 Range/Units 11:58 17:40 20:37 POC Glucose (mg/dL) 169 H 244 H 334 H (70-110) mg/dL 04/21/23 Range/Units 07:03 POC Glucose (mg/dL) 177 H (70-110) mg/dL
[2023-04-21 12:26] LABS: Glucose,Whole Blood 214 mg/dL (70-110)
[2023-04-21 17:09] LABS: Glucose,Whole Blood 276 mg/dL (70-110)
--- NOTE | 2023-04-21 17:45 | P.PN ---
Progress Note - Text Progress Note Date: 04/21/23 Interval history: Patient was seen today for psychiatric follow-up. Patient appeared to be sitt ing up at the side of his bed and was pleasant and agreeable to speak to proposal manager writer. He appeared to be more cocoperative and directable today and brighter affect. states that he has no significant complaints, asking about potential discharhe. states that he is sleeping well at night, has a fair appetite. Denying any suicidal or homicidal ideations intent or plan, he appears to be more future oriented. Denying any auditory or visual hallucinations. Patients nurse claims that he is improving and no significant behvr concerns. agreed to d/c sitter at this time. MENTAL STATUS EXAM: General Appearance: Patient appears to be overweight, balding, stated age is alert, attempts to cooperate. brighter affect. Patient appears to have improving hygiene and grooming wearing hospital gown with fair eye contact. Behavior: Patient is calmly lying in bed without any agitated behavior. alert, cooperative. Speech: Patient's speech is fluent and nonpressured. [place], imrpoving Mood/Affect: Patient reports their mood is "good", affect is congruent Suicidality/Homicidality: Patient denies having any current suicidal or homicidal ideation intent or plan. Perceptions: Patient denies any visual hallucinations and denies any auditory hallucinations Though content/process: no endorsing delusions, more future oriented, logical. improving. Memory and concentration: AOX2, however does not know today's date. Fair attention span. Judgment and insight: chronically poor, improving mildly IMPRESSIONS: Psychosis unspecified neurocognitive disorder Suicidal ideations PLAN: -At this time patient DOES NOT meet criteria for inpatient psychiatric admission -Patient DOES NOT have decision making capacity at this time and is unable to reason through and communicate/appreciate the risks, benefits and alternatives to treatment. -Delirium precautions recommended with patient including - avoiding use of narcotics and TABLEAU DEVELOPER sedatives, limit anticholinergic medications when possible, frequent re-orientation, minimize use of restraints, open window shades during the day and close them at night -Would recommend the following medication changes/additions: continue paliperidone by mouth 3 mg daily at bedtime for psychosis/mood stabilization/insomnia, lexapro 20 mg total daily for mood/anxiety. Seroquel twice a day when necessary for agitation/psychosis. Melatonin 3 mg daily at bedtime for sleep -Discontinue 1:1 sitter as patient is not endorsing SI and is more organized and future oriented. -ventilation worker to provide patient with outpatient mental health/psychiatry resources for appropriate follow up upon discharge -Communicated plan to patient's nurse and dietary services manager -at this time psychiatry will sign off. -Please contact with any questions.
[2023-04-21 20:27] LABS: Glucose,Whole Blood 333 mg/dL (70-110)
[2023-04-21] MEDS: ATORVASTATIN 80 MG TAB PO SCH (21:33)
[2023-04-21] MEDS: ESCITALOPRAM 20 MG TAB PO SCH (21:34)
[2023-04-21] MEDS: TOPIRAMATE 25 MG TAB PO SCH (21:34)
[2023-04-21] MEDS: PALIPERIDONE 3 MG TAB.ER.24 PO SCH (21:35)
[2023-04-21] MEDS: MELATONIN 3 MG TABLET PO SCH (21:35)
[2023-04-21] MEDS: INSULIN DETEMIR (LEVEMIR) 100 UNIT/ML SYR SQ SCH (21:36)
--- NOTE | 2023-04-22 05:39 | P.PN ---
Subjective Progress Note Date: 04/21/23 67-year-old gentleman with past medical history significant for hypertension, hyperlipidemia, diabetes, CAD, cardiomyopathy with an ejection fraction of 25- 30% who was sent to ER from [facility] for abnormal labs. Patient had blood work done at a facility and was found to have a low hemoglobin level of 6.3. Patient denies any complaint of any blood in the stool. There was no complain of any nausea or vomiting or any hematemesis. Denies any abdominal pain. Patient has a wound on his left leg with wound VAC that he thinks he picked and was bleeding. Denies any chest pain or shortness of breath. He was no complain of lightheadedness or dizziness. Because of these abnormal labs, patient was sent to the ER Initial lab work done in the ER showed WBC 8.7, hemoglobin 7, platelet count 317, sodium 140, potassium 4, BUN 81, creatinine 1.34, glucose 161, FOBT positive 04/17/2023 Patient is seen and evaluated sitting up in bed; sitter at bedside Vital signs are reviewed and stable with temperature of 98, pulse 93, respiration 24 and blood pressure 131/74 with saturation 96% on 2 L Patient has been evaluated by psychiatry; patient meets criteria for inpatient psych admission; recommended to avoid use of narcotics and sedatives; discontinue Seroquel and replace with paliperidone by mouth 3 mg daily at bedtime for psychosis/mood stabilization/insomnia, continue lexapro 10 mg daily for mood/anxiety. Seroquel twice a day when necessary for agitation/psychosis. Melatonin 3 mg daily at bedtime for sleep -Continue 1:1 sitter for safety and suicidal thoughts -Cannot leave AMA at this time. Patient will need a petition and certification if attempting to leave AMA. 04/18/2023 Patient is seen and evaluated sitting up in bed with sitter bedside psychiatry recommendations; patient does meet criteria for inpatient psychiatric admission; remains on medical floor for multiple medical problems; psych following for medication adjustment and further treatment patient with a chronic nonhealing wound to the left foot lateral border in this patient who did have a history of left fifth toe gangrene status post amputation back on February 09, 2023 at that point he did have Morganella bacteremia and local culture positive for Enterococcus and Morganella for the patient has completed course of IV antibiotic therapy, patient now with a nonhealing wound and he did have a culture from the same area growing MSSA and anaerobic gram- positive cocci patient did have mild elevated inflammatory markers with a sed rate of 42. the patient did get a PICC line he will continue with cefazolin and Flagyl local wound care with a wound VAC and will monitor his clinical course closely 04/20/2023 Patient is seen in follow-up this morning continues with a suicide sitter at the bedside awaiting follow-up and reevaluation from psychiatry after adjustments has been made. Patient was reporting suicidal ideation although is not currently reporting any thoughts of wanting to harm himself or others. Patient continues on IV antibiotics with infectious disease following an discontinued with a wound VAC with plans on returning to [facility] for continued rehab and IV antibiotic therapy. Case management following as well awaiting on reevaluation from psychiatry as patient was reported to have met inpatient criteria guidelines. Patient does not meet criteria for inpatient psych here and would need outpatient referral services that can accommodate longterm as well. Patient is afebrile with no reported chest pain or shortness of breath. Patient is tolerating diet with no reported nausea or vomiting. 04/21/2023 Patient is seen in follow-up today continues with suicide sitter although patient reports is not suicidal and denies wanting to harm himself or others. Patient continues with wound VAC and local wound care along with antibiotics with multiple medical consultations following. General surgery evaluated the patient underwent endoscopy showing normal colonoscopy erosive gastritis on EGD otherwise negative findings. Patient's hemoglobin is stable and will follow-up with repeat labs in a.m. Blood sugars are slightly more elevated and will adjust medications accordingly. Patient is continued on sliding scale along with pre-meal insulins and long acting. Encouraged increased activity as tolerated. Plan was for return to [facility] although [facility] is now refusing and case management following working on other [facility] for continued wound care and antibiotic therapy. Review of systems: Constitutional: No reports of fatigue, fever, or chills Cardiovascular: No reports of chest pain or palpitations Respiratory: No reports of shortness of breath or cough GI: No reports of nausea, vomiting, or diarrhea : No reports of dysuria or retention Neurovascular: reports of generalized weakness Physical exam: GENERAL: The patient is asleep although arousable, alert and oriented x3, Well developed, well nourished. Obese HEENT: Pupils are round and equally reacting to light. EOMI. No scleral icterus. No conjunctival pallor. Normocephalic, atraumatic. No pharyngeal erythema. No thyromegaly. CARDIOVASCULAR: S1 and S2 muffled PULMONARY: Diminished breath sounds bilaterally otherwise clear to auscultation, no wheezing or crackles. ABDOMEN: Soft, obese. nontender, nondistended, normoactive bowel sounds. No palpable organomegaly. MUSCULOSKELETAL: Left foot wound VAC seen EXTREMITIES: No cyanosis, clubbing, bilateral pedal edema noted 1+ pitting. NEUROLOGICAL: Gross neurological examination did not reveal any focal deficits. Diffusely weak SKIN: No rashes. All medications have been reviewed Assessment: Chronic nonhealing ulcer of left foot, wound culture growing MSSA Acute blood loss anemia with EGD showing erosive gastritis and normal colonoscopy Suicidal thoughts, patient was evaluated by psychiatry and denies any suicidal thoughts or ideations wanting to harm himself or others History of left foot wound with evidence of osteomyelitis status post amputation of the left fifth toe CAD with known chronic total occlusion of the distal RCA and intermediate disease involving the OM1 PAD with recent SUPERVISOR [employer]SEMBLY involving the left SFA hypertension hyperlipidemia Hyperuricemia Acute gout COPD not in exacerbation chronic hypoxic respiratory failure on home O2 secondary to COPD Diabetes mellitus, type II, insulin-dependent, uncontrolled with hyperglycemia Obesity with a BMI of 30.6 GI prophylaxis DVT prophylaxis Full code Plan: Patient continue on IV antibiotics with infectious disease following in the form of cefazolin and Flagyl and will continue with wound VAC and wound care Psychiatry has reevaluated the patient and does not meet criteria for inpatient psych. Patient is not suicidal and denies any thoughts of wanting to harm himself or others. Suicide sitter being discontinued with adjustments to medications being made per psychiatry and has signed off of the case. Case management following as original discharge plan was returning to [facility] although they are unable to accept the patient in case management has placed multiple other referrals to other facilities for continued ECF for wound care and IV antibiotic therapy. Will discuss with case management once there is in ECF available and if patient will require insurance authorization. Continue to monitor Accu-Cheks before meals and at bedtime and will adjust current regimen as patient's blood sugars remain uncontrolled Continue with the wound VAC and local wound care and elevate lower extremity swelling rest Recommend physical therapy evaluation daily Possible discharge planning in the next 24-48 hours as patient is medically stable The impression and plan of care has been dictated by Irina Gamez, nurse practitioner as directed. Dr. Gilbert MD I have performed a history and examination and MDM of this patient, discussed the same with the dictator, and agree with the dictator's assessment and plan as written ,documented as a scribe. Based on total visit time, I have performed more than 50% of the visit. Any additional findings or plans will be noted. Objective - Vital Signs Vital signs: Vital Signs Temp 98.2 F 04/22/23 02:00 Pulse 80 04/22/23 02:00 Resp 16 04/21/23 19:17 BP 147/75 04/22/23 02:00 Pulse Ox 99 04/21/23 19:17 FiO2 Intake & Output 04/21/23 04/21/23 04/22/23 06:59 18:59 06:59 Intake Total 240 Output Total 1515 3050 750 Balance -1275 -3050 -750 Weight 115.9 kg Intake: Oral 240 Output: Urine 1515 3050 750 Other: Voiding Method Bedside Commode Bedside Commode External Catheter Urinal Urinal # Bowel Movements 1 - Labs CBC & Chem 7: 04/20/23 06:00 04/18/23 06:36 Labs: Abnormal Lab Results - Last 24 Hours (Table) 04/21/23 04/21/23 04/21/23 Range/Units 07:03 12:04 17:06 POC Glucose (mg/dL) 177 H 214 H 276 H (70-110) mg/dL 04/21/23 Range/Units 20:22 POC Glucose (mg/dL) 333 H (70-110) mg/dL
[2023-04-22] MEDS: FUROSEMIDE 40 MG TAB PO SCH ×2 (06:14→12:59)
[2023-04-22 07:13] LABS: Glucose,Whole Blood 194 mg/dL (70-110)
[2023-04-22] MEDS: IPRATROPIUM-ALBUTEROL 3 ML NEB INHALATION SCH ×4 (07:25→18:37)
[2023-04-22] MEDS: INSULIN DETEMIR (LEVEMIR) 100 UNIT/ML SYR SQ SCH ×2 (07:53→22:19)
[2023-04-22] MEDS: INSULIN ASPART (NovoLOG) 100 UNIT/ML VIAL SQ SCH ×7 (07:53→22:19)
[2023-04-22] MEDS: predniSONE 20 MG TAB PO SCH (07:54)
[2023-04-22] MEDS: ASPIRIN 81 MG PO SCH (07:54)
[2023-04-22] MEDS: FAMOTIDINE 20 MG TAB PO SCH ×2 (07:54→22:19)
[2023-04-22] MEDS: ISOSORBIDE MONONITRATE ER 30 MG TAB.ER.24H PO SCH (07:54)
[2023-04-22] MEDS: SUCRALFATE 1 GM TAB PO SCH ×4 (07:54→22:19)
[2023-04-22] MEDS: METOPROLOL TARTRATE 12.5 MG TAB PO SCH ×2 (07:54→22:19)
[2023-04-22] MEDS: LACTOBACILLUS ACIDOPHILUS/PECT 1 EACH CAPSULE PO SCH ×2 (07:54→17:38)
[2023-04-22] MEDS: metroNIDAZOLE 500 MG TAB PO SCH ×3 (07:55→22:19)
[2023-04-22] MEDS: COLCHICINE 0.6 MG EACH PO SCH ×2 (07:55→22:18)
[2023-04-22] MEDS: DICYCLOMINE 10 MG CAP PO SCH ×3 (07:55→17:38)
[2023-04-22] MEDS: FERROUS SULFATE 325 MG TAB PO SCH (07:55)
[2023-04-22] MEDS: PANTOPRAZOLE 40 MG/10 ML VIAL IVP SCH ×2 (08:10→22:19)
[2023-04-22 09:08] LABS: ALT 7 U/L (10-49); AST 9 U/L (14-35); Albumin 3.4 g/dL (3.8-4.9); Albumin/Globulin Ratio 1.48 Ratio (1.60-3.17); Alkaline Phosphatase 69 U/L (41-126); BUN/Creat Ratio 32.08 Ratio (12.00-20.00); Blood Urea Nitrogen 38.5 mg/dL (9.0-27.0); Calcium 9.4 mg/dL (8.7-10.3); Carbon Dioxide 30.8 mmol/L (21.6-31.8); Chloride 99 mmol/L (96-109); Globulin 2.3 g/dL (1.6-3.3); Glucose 204 mg/dL (70-110); Potassium 3.5 mmol/L (3.5-5.5); Sodium 140 mmol/L (135-145); Total Bilirubin <0.2 mg/dL (0.3-1.2); Total Protein 5.7 g/dL (6.2-8.2)
[2023-04-22 09:27] LABS: Basophils # (A) 0.02 X 10*3/uL (0.00-0.10); Basophils % (A) 0.2 %; Eosinophils # (A) 0.02 X 10*3/uL (0.04-0.35); Eosinophils % (A) 0.2 %; HCT 30.7 % (39.6-50.0); HGB 9.6 g/dL (13.0-17.0); Lymphocytes # (A) 1.35 X 10*3/uL (0.90-5.00); Lymphocytes % (A) 10.9 %; MCH 28.8 pg (27.0-32.0); MCHC 31.3 g/dL (32.0-37.0); MCV 92.2 FL (80.0-97.0); Mean Platelet Volume 10.9 FL (9.5-12.2); Monocytes # (A) 0.68 X 10*3/uL (0.20-1.00); Monocytes % (A) 5.5 %; NRBC Per 100 WBC 0.04 X 10*3/uL (0.00-0.01); Neutrophils % (A) 81.9 %; Platelet Count 269 X 10*3/uL (140-440); RBC 3.33 X 10*6/uL (4.40-5.60); RDW 16.5 % (11.5-14.5); WBC 12.43 X 10*3/uL (4.50-10.00)
[2023-04-22 11:25] LABS: Glucose,Whole Blood 220 mg/dL (70-110)
--- NOTE | 2023-04-22 12:13 | P.PN ---
Subjective Progress Note Date: 04/22/23 CHIEF COMPLAINT: Anemia HISTORY OF PRESENT ILLNESS: Patient is status post colonoscopy which revealed normal findings. Patient status post EGD revealing erosive gastritis. Biopsy result revealing iron pill gastritis. Patient having bowel movements. No bleeding reported. Hemoglobin is up from 8-9.6 PHYSICAL EXAM: VITAL SIGNS: Reviewed. GENERAL: Well-developed in no acute distress. ABDOMEN: Soft. Nondistended. Nontender. ASSESSMENT: 1. Anemia 2. Status post EGD revealing erosive gastritis and Colonoscopy was normal PLAN: -Continue Protonix -Continue supportive care -Okay for discharge from surgical standpoint when medically cleared Physician City Director note has been reviewed by physician. Signing provider agrees with the documented findings, assessment, and plan of care. Objective - Vital Signs Vital signs: Vital Signs Temp 98.1 F 04/22/23 07:09 Pulse 83 04/22/23 07:39 Resp 16 04/22/23 07:09 BP 133/74 04/22/23 07:09 Pulse Ox 98 04/22/23 07:09 FiO2 Intake & Output 04/21/23 04/22/23 04/22/23 18:59 06:59 18:59 Output Total 3050 1050 Balance -3050 -1050 Output: Urine 3050 1050 Other: Voiding Method Bedside Commode External Catheter External Catheter Urinal # Bowel Movements 1 1 - Labs CBC & Chem 7: 04/22/23 05:49 04/22/23 05:49 Labs: Abnormal Lab Results - Last 24 Hours (Table) 04/21/23 04/21/23 04/21/23 Range/Units 12:04 17:06 20:22 WBC (4.50-10.00) X 10*3/uL RBC (4.40-5.60) X 10*6/uL Hgb (13.0-17.0) g/dL Hct (39.6-50.0) % MCHC (32.0-37.0) g/dL RDW (11.5-14.5) % Immature Gran # (0.00-0.04) X 10*3/uL Neutrophils # (1.80-7.70) X 10*3/uL Eosinophils # (0.04-0.35) X 10*3/uL NRBC/100 WBC Diff (0.00-0.01) X 10*3/uL BUN (9.0-27.0) mg/dL BUN/Creatinine Ratio (12.00-20.00) Ratio Glucose (70-110) mg/dL POC Glucose (mg/dL) 214 H 276 H 333 H (70-110) mg/dL Total Bilirubin (0.3-1.2) mg/dL AST (14-35) U/L ALT (10-49) U/L Total Protein (6.2-8.2) g/dL Albumin (3.8-4.9) g/dL Albumin/Globulin Ratio (1.60-3.17) Ratio 04/22/23 04/22/23 04/22/23 Range/Units 05:49 05:49 07:11 WBC 12.43 H (4.50-10.00) X 10*3/uL RBC 3.33 L (4.40-5.60) X 10*6/uL Hgb 9.6 L (13.0-17.0) g/dL Hct 30.7 L (39.6-50.0) % MCHC 31.3 L (32.0-37.0) g/dL RDW 16.5 H (11.5-14.5) % Immature Gran # 0.16 H (0.00-0.04) X 10*3/uL Neutrophils # 10.20 H (1.80-7.70) X 10*3/uL Eosinophils # 0.02 L (0.04-0.35) X 10*3/uL NRBC/100 WBC Diff 0.04 H (0.00-0.01) X 10*3/uL BUN 38.5 H (9.0-27.0) mg/dL BUN/Creatinine Ratio 32.08 H (12.00-20.00) Ratio Glucose 204 H (70-110) mg/dL POC Glucose (mg/dL) 194 H (70-110) mg/dL Total Bilirubin <0.2 L (0.3-1.2) mg/dL AST 9 L (14-35) U/L ALT 7 L (10-49) U/L Total Protein 5.7 L (6.2-8.2) g/dL Albumin 3.4 L (3.8-4.9) g/dL Albumin/Globulin Ratio 1.48 L (1.60-3.17) Ratio /03/05 Range/Units 11:24 WBC (4.50-10.00) X 10*3/uL RBC (4.40-5.60) X 10*6/uL Hgb (13.0-17.0) g/dL Hct (39.6-50.0) % MCHC (32.0-37.0) g/dL RDW (11.5-14.5) % Immature Gran # (0.00-0.04) X 10*3/uL Neutrophils # (1.80-7.70) X 10*3/uL Eosinophils # (0.04-0.35) X 10*3/uL NRBC/100 WBC Diff (0.00-0.01) X 10*3/uL BUN (9.0-27.0) mg/dL BUN/Creatinine Ratio (12.00-20.00) Ratio Glucose (70-110) mg/dL POC Glucose (mg/dL) 220 H (70-110) mg/dL Total Bilirubin (0.3-1.2) mg/dL AST (14-35) U/L ALT (10-49) U/L Total Protein (6.2-8.2) g/dL Albumin (3.8-4.9) g/dL Albumin/Globulin Ratio (1.60-3.17) Ratio
--- NOTE | 2023-04-22 16:07 | P.PN ---
Subjective Progress Note Date: 04/21/23 Principal diagnosis: Reason for follow-up is left diabetic foot ulcer with recent culture positive for MSSA and anaerobes Patient is a 67-year-old male with a past medical history significant for hypertension hyperlipidemia AL diabetes mellitus dementia patient was rece ntly admitted to this facility with left fifth toe gangrene status post amputation he did have a Morganella bacteremia at that point the patient completed his antibiotic therapy patient to follow at [facility] apparently the patient have a culture done on 03/24/2023 that grew MSSA and anaerobes patient not very clear if he received any treatment for the presenting to the hospital with hemoglobin of 6.3 On today's evaluation that is 04/21/2023 the patient denies any fever or any chi lls, the patient is breathing comfortably on 2 L nasal cannula oxygen, patient denies any chest pain or shortness of breath, the patient did have occasional dry cough, no nausea vomiting abdominal pain and denies pain to the left foot wound area, Patient white count is 10.88 creatinine is 1.0 as of 04/20/2023, blood culture this admission has been negative Objective - Vital Signs Vital signs: Vital Signs Temp 97.6 F 04/21/23 12:02 Pulse 86 04/21/23 12:02 Resp 18 04/21/23 12:02 BP 144/75 04/21/23 12:02 Pulse Ox 96 04/21/23 12:02 FiO2 Intake & Output 04/20/23 04/21/23 04/21/23 18:59 06:59 18:59 Intake Total 240 Output Total 1150 1515 0 Balance -[facility] -5 -2049 Weight 117.027 kg 115.9 kg Intake: Oral 240 Output: Urine 1150 1515 0 Other: Voiding Method Bedside Commode Bedside Commode Urinal Urinal # Voids 2 # Bowel Movements 1 - Exam GENERAL DESCRIPTION: An elderly male lying in bed in no distress RESPIRATORY SYSTEM: Unlabored breathing , decreased breath sounds at bases HEART: S1 S2 regular rate and rhythm , ABDOMEN: Soft , no tenderness EXTREMITIES: Left fifth toe amputation site wound is covered with a wound VAC - Labs CBC & Chem 7: 04/22/23 05:49 04/22/23 05:49 Labs: Abnormal Lab Results - Last 24 Hours (Table) 04/20/23 04/20/23 04/21/23 Range/Units 17:40 20:37 07:03 POC Glucose (mg/dL) 244 H 334 H 177 H (70-110) mg/dL 04/21/23 Range/Units 12:04 POC Glucose (mg/dL) 214 H (70-110) mg/dL Assessment and Plan (1) MSSA (methicillin susceptible Staphylococcus aureus) infection Current Visit: Yes Status: Acute Code(s): A49.01 - METHICILLIN SUSCEP STAPH INFECTION, UNSP SITE SNOMED Code(s): 861871780 (2) Diabetic infection of left foot Current Visit: No Status: Acute Code(s): E11.628 - TYPE 2 DIABETES MELLITUS WITH OTHER SKIN COMPLICATIONS; L08.9 - LOCAL INFECTION OF THE SKIN AND SUBCUTANEOUS TISSUE, UNSP SNOMED Code(s): 49248622 (3) Type 2 diabetes mellitus with foot ulcer Current Visit: No Status: Acute Code(s): E11.621 - TYPE 2 DIABETES MELLITUS WITH FOOT ULCER; L97.509 - NON-PRESSURE CHRONIC ULCER OTH PRT UNSP FOOT W UNSP SEVERITY SNOMED Code(s): 341397988 Plan: 1patient with a chronic nonhealing wound to the left foot lateral border in thi s patient who did have a history of left fifth toe gangrene status post amputation back on February 09, 2023 at that point he did have Morganella bacteremia and local culture positive for Enterococcus and Morganella for the patient has completed course of IV antibiotic therapy, patient now with a non healing wound and he did have a culture from the same area growing MSSA and anaerobic gram-positive cocci 2patient did have mild elevated inflammatory markers with a sed rate of 42. 3patient remains to be afebrile the patient white count almost normalized, 4-patient to continue with the cefazolin Flagyl for his left diabetic foot infection local wound care to continue with the wound VAC, currently waiting for stabilization of his psych condition Dictation was produced using [employer] dictation software. please excuse any grammatical, word or spelling errors. 60
--- NOTE | 2023-04-22 16:08 | P.PN ---
Subjective Progress Note Date: 04/22/23 Principal diagnosis: Reason for follow-up is left diabetic foot ulcer with recent culture positive for MSSA and anaerobes Patient is a 67-year-old male with a past medical history significant for hypertension hyperlipidemia MD diabetes mellitus dementia patient was rece ntly admitted to this facility with left fifth toe gangrene status post amputation he did have a Morganella bacteremia at that point the patient completed his antibiotic therapy patient to follow at [facility] apparently the patient have a culture done on 03/24/2023 that grew MSSA and anaerobes patient not very clear if he received any treatment for the presenting to the hospital with hemoglobin of 6.3 On today's evaluation that is 04/22/2023 the patient remains to be afebrile, the patient is breathing comfortably on room air no need for supplemental oxygen, patient denies any chest pain or shortness of breath, the patient did have occasional dry cough, no nausea vomiting abdominal pain and denies pain to the left foot wound area, feeling better Patient white count is 12.43 creatinine is 1.2, blood culture this admission has been negative Objective - Vital Signs Vital signs: Vital Signs Temp 98.5 F 04/22/23 14:12 Pulse 83 04/22/23 15:15 Resp 17 04/22/23 14:12 BP 144/75 04/22/23 14:12 Pulse Ox 98 04/22/23 14:12 FiO2 Intake & Output 04/21/23 04/22/23 04/22/23 18:59 06:59 18:59 Output Total 3050 1050 1200 Balance -3050 -1050 -1200 Output: Urine 3050 1050 1200 Other: Voiding Method Bedside Commode External Catheter External Catheter Urinal # Bowel Movements 1 1 - Exam GENERAL DESCRIPTION: An elderly male lying in bed in no distress RESPIRATORY SYSTEM: Unlabored breathing , decreased breath sounds at bases HEART: S1 S2 regular rate and rhythm , ABDOMEN: Soft , no tenderness EXTREMITIES: Left fifth toe amputation site wound is covered with a wound VAC - Labs CBC & Chem 7: 04/22/23 05:49 04/22/23 05:49 Labs: Abnormal Lab Results - Last 24 Hours (Table) 04/21/23 04/21/23 04/22/23 Range/Units 17:06 20:22 05:49 WBC 12.43 H (4.50-10.00) X 10*3/uL RBC 3.33 L (4.40-5.60) X 10*6/uL Hgb 9.6 L (13.0-17.0) g/dL Hct 30.7 L (39.6-50.0) % MCHC 31.3 L (32.0-37.0) g/dL RDW 16.5 H (11.5-14.5) % Immature Gran # 0.16 H (0.00-0.04) X 10*3/uL Neutrophils # 10.20 H (1.80-7.70) X 10*3/uL Eosinophils # 0.02 L (0.04-0.35) X 10*3/uL NRBC/100 WBC Diff 0.04 H (0.00-0.01) X 10*3/uL BUN (9.0-27.0) mg/dL BUN/Creatinine Ratio (12.00-20.00) Ratio Glucose (70-110) mg/dL POC Glucose (mg/dL) 276 H 333 H (70-110) mg/dL Total Bilirubin (0.3-1.2) mg/dL AST (14-35) U/L ALT (10-49) U/L Total Protein (6.2-8.2) g/dL Albumin (3.8-4.9) g/dL Albumin/Globulin Ratio (1.60-3.17) Ratio 04/22/23 04/22/23 04/22/23 Range/Units 05:49 07:11 11:24 WBC (4.50-10.00) X 10*3/uL RBC (4.40-5.60) X 10*6/uL Hgb (13.0-17.0) g/dL Hct (39.6-50.0) % MCHC (32.0-37.0) g/dL RDW (11.5-14.5) % Immature Gran # (0.00-0.04) X 10*3/uL Neutrophils # (1.80-7.70) X 10*3/uL Eosinophils # (0.04-0.35) X 10*3/uL NRBC/100 WBC Diff (0.00-0.01) X 10*3/uL BUN 38.5 H (9.0-27.0) mg/dL BUN/Creatinine Ratio 32.08 H (12.00-20.00) Ratio Glucose 204 H (70-110) mg/dL POC Glucose (mg/dL) 194 H 220 H (70-110) mg/dL Total Bilirubin <0.2 L (0.3-1.2) mg/dL AST 9 L (14-35) U/L ALT 7 L (10-49) U/L Total Protein 5.7 L (6.2-8.2) g/dL Albumin 3.4 L (3.8-4.9) g/dL Albumin/Globulin Ratio 1.48 L (1.60-3.17) Ratio Assessment and Plan (1) MSSA (methicillin susceptible Staphylococcus aureus) infection Current Visit: Yes Status: Acute Code(s): A49.01 - METHICILLIN SUSCEP STAPH INFECTION, UNSP SITE SNOMED Code(s): 710530475 (2) Diabetic infection of left foot Current Visit: No Status: Acute Code(s): E11.628 - TYPE 2 DIABETES MELLITUS WITH OTHER SKIN COMPLICATIONS; L08.9 - LOCAL INFECTION OF THE SKIN AND SUBCUTANEOUS TISSUE, UNSP SNOMED Code(s): 85077826 (3) Type 2 diabetes mellitus with foot ulcer Current Visit: No Status: Acute Code(s): E11.621 - TYPE 2 DIABETES MELLITUS WITH FOOT ULCER; L97.509 - NON-PRESSURE CHRONIC ULCER OTH PRT UNSP FOOT W UNSP SEVERITY SNOMED Code(s): 594837779 Plan: 1patient with a chronic nonhealing wound to the left foot lateral border in this patient who did have a history of left fifth toe gangrene status post amputation back on February 09, 2023 at that point he did have Morganella bacteremia and local culture positive for Enterococcus and Morganella for the patient has completed course of IV antibiotic therapy, patient now with a nonhe aling wound and he did have a culture from the same area growing MSSA and anaerobic gram-positive cocci 2patient did have mild elevated inflammatory markers with a sed rate of 42. 3patient remains to be afebrile the patient white count almost normalized initially however the white count slightly up today and will monitor his white count closely, 4-patient to continue with the cefazolin Flagyl for his left diabetic foot infection local wound care to continue with the wound VAC, Dictation was produced using [employer] software. please excuse any grammatical, word or spelling errors. 60 Time with Patient: Less than 30
[2023-04-22 16:55] LABS: Glucose,Whole Blood 323 mg/dL (70-110)
[2023-04-22 20:15] LABS: Glucose,Whole Blood 331 mg/dL (70-110)
[2023-04-22] MEDS: PALIPERIDONE 3 MG TAB.ER.24 PO SCH (22:18)
[2023-04-22] MEDS: TOPIRAMATE 25 MG TAB PO SCH (22:18)
[2023-04-22] MEDS: ATORVASTATIN 80 MG TAB PO SCH (22:18)
[2023-04-22] MEDS: MELATONIN 3 MG TABLET PO SCH (22:18)
[2023-04-22] MEDS: ESCITALOPRAM 20 MG TAB PO SCH (22:18)
--- NOTE | 2023-04-23 05:32 | P.PN ---
Subjective Progress Note Date: 04/22/23 67-year-old gentleman with past medical history significant for hypertension, hyperlipidemia, diabetes, CAD, cardiomyopathy with an ejection fraction of 25- 30% who was sent to ER from [facility] for abnormal labs. Patient had blood work done at a facility and was found to have a low hemoglobin level of 6.3. Patient denies any complaint of any blood in the stool. There was no complain of any nausea or vomiting or any hematemesis. Denies any abdominal pain. Patient has a wound on his left leg with wound VAC that he thinks he picked and was bleeding. Denies any chest pain or shortness of breath. He was no complain of lightheadedness or dizziness. Because of these abnormal labs, patient was sent to the ER Initial lab work done in the ER showed WBC 8.7, hemoglobin 7, platelet count 317, sodium 140, potassium 4, BUN 81, creatinine 1.34, glucose 161, FOBT positive 04/17/2023 Patient is seen and evaluated sitting up in bed; sitter at bedside Vital signs are reviewed and stable with temperature of 98, pulse 93, respiration 24 and blood pressure 131/74 with saturation 96% on 2 L Patient has been evaluated by psychiatry; patient meets criteria for inpatient psych admission; recommended to avoid use of narcotics and sedatives; discontinue Seroquel and replace with paliperidone by mouth 3 mg daily at bedtime for psychosis/mood stabilization/insomnia, continue lexapro 10 mg daily for mood/anxiety. Seroquel twice a day when necessary for agitation/psychosis. Melatonin 3 mg daily at bedtime for sleep -Continue 1:1 sitter for safety and suicidal thoughts -Cannot leave AMA at this time. Patient will need a petition and certification if attempting to leave AMA. 04/18/2023 Patient is seen and evaluated sitting up in bed with sitter bedside psychiatry recommendations; patient does meet criteria for inpatient psychiatric admission; remains on medical floor for multiple medical problems; psych following for medication adjustment and further treatment patient with a chronic nonhealing wound to the left foot lateral border in this patient who did have a history of left fifth toe gangrene status post amputation back on February 09, 2023 at that point he did have Morganella bacteremia and local culture positive for Enterococcus and Morganella for the patient has completed course of IV antibiotic therapy, patient now with a nonhealing wound and he did have a culture from the same area growing MSSA and anaerobic gram- positive cocci patient did have mild elevated inflammatory markers with a sed rate of 42. the patient did get a PICC line he will continue with cefazolin and Flagyl local wound care with a wound VAC and will monitor his clinical course closely 04/20/2023 Patient is seen in follow-up this morning continues with a suicide sitter at the bedside awaiting follow-up and reevaluation from psychiatry after adjustments has been made. Patient was reporting suicidal ideation although is not currently reporting any thoughts of wanting to harm himself or others. Patient continues on IV antibiotics with infectious disease following an discontinued with a wound VAC with plans on returning to [facility] for continued rehab and IV antibiotic therapy. Case management following as well awaiting on reevaluation from psychiatry as patient was reported to have met inpatient criteria guidelines. Patient does not meet criteria for inpatient psych here and would need outpatient referral services that can accommodate retirement as well. Patient is afebrile with no reported chest pain or shortness of breath. Patient is tolerating diet with no reported nausea or vomiting. 04/21/2023 Patient is seen in follow-up today continues with suicide sitter although patient reports is not suicidal and denies wanting to harm himself or others. Patient continues with wound VAC and local wound care along with antibiotics with multiple medical consultations following. General surgery evaluated the patient underwent endoscopy showing normal colonoscopy erosive gastritis on EGD otherwise negative findings. Patient's hemoglobin is stable and will follow-up with repeat labs in a.m. Blood sugars are slightly more elevated and will adjust medications accordingly. Patient is continued on sliding scale along with pre-meal insulins and long acting. Encouraged increased activity as tolerated. Plan was for return to [facility] although [facility] is now refusing and case management following working on other [facility] for continued wound care and antibiotic therapy. 04/22/2023 Patient is seen this morning and reports to feeling well. Patient blood sugars remain elevated and have adjusted long acting. Will adjust premeal as well and continue on sliding scale. Patient is afebrile and denies chest pain or shortness of breath. Patient is continued with wound vac and IV antibiotics with ID following. Patient is awaiting an accepting ecf for continued wound care and IV abx therapy. Recommend PT/ot daily. Review of systems: Constitutional: No reports of fatigue, fever, or chills Cardiovascular: No reports of chest pain or palpitations Respiratory: No reports of shortness of breath or cough GI: No reports of nausea, vomiting, or diarrhea : No reports of dysuria or retention Neurovascular: reports of generalized weakness Physical exam: GENERAL: The patient is awake, alert and oriented x3, Well developed, well nourished. Obese HEENT: Pupils are round and equally reacting to light. EOMI. No scleral icterus. No conjunctival pallor. Normocephalic, atraumatic. No pharyngeal erythema. No thyromegaly. CARDIOVASCULAR: S1 and S2 muffled PULMONARY: Diminished breath sounds bilaterally otherwise clear to auscultation, no wheezing or crackles. ABDOMEN: Soft, obese. nontender, nondistended, normoactive bowel sounds. No palpable organomegaly. MUSCULOSKELETAL: Left foot wound VAC seen EXTREMITIES: No cyanosis, clubbing, bilateral pedal edema noted 1+ pitting. NEUROLOGICAL: Gross neurological examination did not reveal any focal deficits. Diffusely weak SKIN: No rashes. All medications have been reviewed Assessment: Chronic nonhealing ulcer of left foot, wound culture growing MSSA Acute blood loss anemia with EGD showing erosive gastritis and normal colonoscopy Suicidal thoughts, patient was evaluated by psychiatry and denies any suicidal thoughts or ideations wanting to harm himself or others History of left foot wound with evidence of osteomyelitis status post amputation of the left fifth toe CAD with known chronic total occlusion of the distal RCA and intermediate disease involving the OM1 PAD with recent [employer] involving the left SFA hypertension hyperlipidemia Hyperuricemia Acute gout COPD not in exacerbation chronic hypoxic respiratory failure on home O2 secondary to COPD Diabetes mellitus, type II, insulin-dependent, uncontrolled with hyperglycemia Obesity with a BMI of 30.6 GI prophylaxis DVT prophylaxis Full code Plan: Patient continue on IV antibiotics with infectious disease following in the form of cefazolin and Flagyl and will continue with wound VAC and wound care Psychiatry has reevaluated the patient and does not meet criteria for inpatient psych. Patient is not suicidal and denies any thoughts of wanting to harm himself or others. Suicide sitter being discontinued with adjustments to medications being made per psychiatry and has signed off of the case. Case management following as original discharge plan was returning to [facility] although they are unable to accept the patient and case management has placed multiple other referrals to other facilities for continued ECF for wound care and IV antibiotic therapy. Will discuss with case management once there is in ECF available and if patient will require insurance authorization. Continue to monitor Accu-Cheks before meals and at bedtime and will adjust current regimen as patient's blood sugars remain uncontrolled. Have increased long acting and will adjust pre-meal TID as well, continue with sliding scale as well Continue with the wound VAC and local wound care and elevate lower extremity while at rest Recommend physical therapy evaluation daily Possible discharge planning in the next 24-48 hours as patient is medically stable The impression and plan of care has been dictated by Irina Gamez, nurse practitioner as directed. Dr. Gilbert MD I have performed a history and examination and MDM of this patient, discussed the same with the dictator, and agree with the dictator's assessment and plan as written ,documented as a scribe. Based on total visit time, I have performed more than 50% of the visit. Any additional findings or plans will be noted. Objective - Vital Signs Vital signs: Vital Signs Temp 98.1 F 04/22/23 07:09 Pulse 83 04/22/23 07:39 Resp 16 04/22/23 07:09 BP 133/74 04/22/23 07:09 Pulse Ox 98 04/22/23 07:09 FiO2 Intake & Output 04/21/23 04/22/23 04/22/23 18:59 06:59 18:59 Output Total 3050 1050 Balance -3050 -1050 Output: Urine 3050 1050 Other: Voiding Method Bedside Commode External Catheter External Catheter Urinal # Bowel Movements 1 1 - Labs CBC & Chem 7: 04/22/23 05:49 04/22/23 05:49 Labs: Abnormal Lab Results - Last 24 Hours (Table) 04/21/23 04/21/23 04/21/23 Range/Units 12:04 17:06 20:22 WBC (4.50-10.00) X 10*3/uL RBC (4.40-5.60) X 10*6/uL Hgb (13.0-17.0) g/dL Hct (39.6-50.0) % MCHC (32.0-37.0) g/dL RDW (11.5-14.5) % Immature Gran # (0.00-0.04) X 10*3/uL Neutrophils # (1.80-7.70) X 10*3/uL Eosinophils # (0.04-0.35) X 10*3/uL NRBC/100 WBC Diff (0.00-0.01) X 10*3/uL BUN (9.0-27.0) mg/dL BUN/Creatinine Ratio (12.00-20.00) Ratio Glucose (70-110) mg/dL POC Glucose (mg/dL) 214 H 276 H 333 H (70-110) mg/dL Total Bilirubin (0.3-1.2) mg/dL AST (14-35) U/L ALT (10-49) U/L Total Protein (6.2-8.2) g/dL Albumin (3.8-4.9) g/dL Albumin/Globulin Ratio (1.60-3.17) Ratio 04/22/23 04/22/23 04/22/23 Range/Units 05:49 05:49 07:11 WBC 12.43 H (4.50-10.00) X 10*3/uL RBC 3.33 L (4.40-5.60) X 10*6/uL Hgb 9.6 L (13.0-17.0) g/dL Hct 30.7 L (39.6-50.0) % MCHC 31.3 L (32.0-37.0) g/dL RDW 16.5 H (11.5-14.5) % Immature Gran # 0.16 H (0.00-0.04) X 10*3/uL Neutrophils # 10.20 H (1.80-7.70) X 10*3/uL Eosinophils # 0.02 L (0.04-0.35) X 10*3/uL NRBC/100 WBC Diff 0.04 H (0.00-0.01) X 10*3/uL BUN 38.5 H (9.0-27.0) mg/dL BUN/Creatinine Ratio 32.08 H (12.00-20.00) Ratio Glucose 204 H (70-110) mg/dL POC Glucose (mg/dL) 194 H (70-110) mg/dL Total Bilirubin <0.2 L (0.3-1.2) mg/dL AST 9 L (14-35) U/L ALT 7 L (10-49) U/L Total Protein 5.7 L (6.2-8.2) g/dL Albumin 3.4 L (3.8-4.9) g/dL Albumin/Globulin Ratio 1.48 L (1.60-3.17) Ratio 04/22/23 Range/Units 11:24 WBC (4.50-10.00) X 10*3/uL RBC (4.40-5.60) X 10*6/uL Hgb (13.0-17.0) g/dL Hct (39.6-50.0) % MCHC (32.0-37.0) g/dL RDW (11.5-14.5) % Immature Gran # (0.00-0.04) X 10*3/uL Neutrophils # (1.80-7.70) X 10*3/uL Eosinophils # (0.04-0.35) X 10*3/uL NRBC/100 WBC Diff (0.00-0.01) X 10*3/uL BUN (9.0-27.0) mg/dL BUN/Creatinine Ratio (12.00-20.00) Ratio Glucose (70-110) mg/dL POC Glucose (mg/dL) 220 H (70-110) mg/dL Total Bilirubin (0.3-1.2) mg/dL AST (14-35) U/L ALT (10-49) U/L Total Protein (6.2-8.2) g/dL Albumin (3.8-4.9) g/dL Albumin/Globulin Ratio (1.60-3.17) Ratio
[2023-04-23] MEDS: FUROSEMIDE 40 MG TAB PO SCH ×2 (06:25→13:31)
[2023-04-23 07:30] LABS: Glucose,Whole Blood 137 mg/dL (70-110)
[2023-04-23] MEDS: INSULIN ASPART (NovoLOG) 100 UNIT/ML VIAL SQ SCH ×7 (07:39→21:04)
[2023-04-23] MEDS: METOPROLOL TARTRATE 12.5 MG TAB PO SCH ×2 (07:50→20:54)
[2023-04-23] MEDS: FERROUS SULFATE 325 MG TAB PO SCH (07:50)
[2023-04-23] MEDS: SUCRALFATE 1 GM TAB PO SCH ×4 (07:50→20:54)
[2023-04-23] MEDS: ASPIRIN 81 MG PO SCH (07:50)
[2023-04-23] MEDS: COLCHICINE 0.6 MG EACH PO SCH ×2 (07:50→20:55)
[2023-04-23] MEDS: metroNIDAZOLE 500 MG TAB PO SCH ×3 (07:50→20:54)
[2023-04-23] MEDS: ISOSORBIDE MONONITRATE ER 30 MG TAB.ER.24H PO SCH (07:50)
[2023-04-23] MEDS: LACTOBACILLUS ACIDOPHILUS/PECT 1 EACH CAPSULE PO SCH ×2 (07:50→18:05)
[2023-04-23] MEDS: PANTOPRAZOLE 40 MG/10 ML VIAL IVP SCH ×2 (07:50→20:54)
[2023-04-23] MEDS: DICYCLOMINE 10 MG CAP PO SCH ×3 (07:50→18:05)
[2023-04-23] MEDS: FAMOTIDINE 20 MG TAB PO SCH ×2 (07:50→20:54)
[2023-04-23] MEDS: predniSONE 10 MG TAB PO SCH (07:50)
[2023-04-23] MEDS: INSULIN DETEMIR (LEVEMIR) 100 UNIT/ML SYR SQ SCH ×2 (07:51→21:03)
[2023-04-23] MEDS: IPRATROPIUM-ALBUTEROL 3 ML NEB INHALATION SCH ×4 (07:52→19:49)
--- NOTE | 2023-04-23 12:17 | P.PN ---
Subjective Progress Note Date: 04/23/23 CHIEF COMPLAINT: Anemia HISTORY OF PRESENT ILLNESS: Patient is status post colonoscopy which revealed normal findings. Patient status post EGD revealing erosive gastritis. Biopsy result revealing iron pill gastritis. Patient having bowel movements. No bleeding reported. Hemoglobin stable 9.6 yesterday. Awaiting insurance authorization for discharge to [facility]. PHYSICAL EXAM: VITAL SIGNS: Reviewed. GENERAL: Well-developed in no acute distress. ABDOMEN: Soft. Nondistended. Nontender. ASSESSMENT: 1. Anemia 2. Status post EGD revealing erosive gastritis and Colonoscopy was normal PLAN: -Continue Protonix -Continue supportive care -Okay for discharge from surgical standpoint when medically cleared Physician [employer] note has been reviewed by physician. Signing provider agrees with the documented findings, assessment, and plan of care. Objective - Vital Signs Vital signs: Vital Signs Temp 97.5 F L 04/23/23 07:54 Pulse 76 04/23/23 08:03 Resp 17 04/23/23 07:54 BP 149/79 04/23/23 07:54 Pulse Ox 99 04/23/23 07:54 FiO2 Intake & Output 04/22/23 04/23/23 04/23/23 18:59 06:59 18:59 Intake Total 100 240 Output Total 4000 1700 Balance -3900 -1700 240 Weight 104.9 kg Intake: Intake, IV Titration 100 Amount ceFAZolin 2 gm In Sodium 100 Chloride 0.9% 50 ml @ 100 mls/hr IVPB Q8HR [facility] Rx# :[id number] Oral 240 Output: Urine 4000 1700 Other: Voiding Method External Catheter Bedside Commode Bedside Commode Diaper Diaper External Catheter External Catheter - Labs CBC & Chem 7: 04/22/23 05:49 04/22/23 05:49 Labs: Abnormal Lab Results - Last 24 Hours (Table) 04/22/23 04/22/23 04/22/23 Range/Units 11:24 16:54 20:13 POC Glucose (mg/dL) 220 H 323 H 331 H (70-110) mg/dL 04/23/23 Range/Units 07:22 POC Glucose (mg/dL) 137 H (70-110) mg/dL
[2023-04-23 12:19] LABS: Glucose,Whole Blood 188 mg/dL (70-110)
--- NOTE | 2023-04-23 15:28 | P.PN ---
Subjective Progress Note Date: 04/23/23 Principal diagnosis: Reason for follow-up is left diabetic foot ulcer with recent culture positive for MSSA and anaerobes Patient is a 67-year-old male with a past medical history significant for hypertension hyperlipidemia [place] diabetes mellitus dementia patient was rece ntly admitted to this facility with left fifth toe gangrene status post amputation he did have a Morganella bacteremia at that point the patient completed his antibiotic therapy patient to follow at [facility] care algoma apparently the patient have a culture done on 03/24/2023 that grew MSSA and anaerobes patient not very clear if he received any treatment for the presenting to the hospital with hemoglobin of 6.3 On today's evaluation that is 04/23/2023 the patient continues to be afebrile, t he patient is breathing comfortably on 2 L nasal cannula supplemental oxygen, patient denies any chest pain or shortness of breath, the patient did have occasional cough but no sputum production, no nausea vomiting abdominal pain and denies pain to the left foot wound area, no new symptoms Patient white count is 12.43 creatinine is 1.2 as of 04/22/2023, blood culture this admission has been negative Objective - Vital Signs Vital signs: Vital Signs Temp 97.8 F 04/23/23 12:54 Pulse 71 04/23/23 12:54 Resp 18 04/23/23 12:54 BP 114/67 04/23/23 12:54 Pulse Ox 98 04/23/23 12:54 FiO2 Intake & Output 04/22/23 04/23/23 04/23/23 18:59 06:59 18:59 Intake Total 100 240 Output Total 4000 1700 Balance -3900 -1700 240 Weight 104.9 kg Intake: Intake, IV Titration 100 Amount ceFAZolin 2 gm In Sodium 100 Chloride 0.9% 50 ml @ 100 mls/hr IVPB Q8HR [facility] Rx# :[id number] Oral 240 Output: Urine 4000 1700 Other: Voiding Method External Catheter Bedside Commode Bedside Commode Diaper Diaper External Catheter External Catheter - Exam GENERAL DESCRIPTION: An elderly male lying in bed in no distress RESPIRATORY SYSTEM: Unlabored breathing , decreased breath sounds at bases HEART: S1 S2 regular rate and rhythm , ABDOMEN: Soft , no tenderness EXTREMITIES: Left fifth toe amputation site wound is covered with a wound VAC - Labs CBC & Chem 7: 04/22/23 05:49 04/22/23 05:49 Labs: Abnormal Lab Results - Last 24 Hours (Table) 04/22/23 04/22/23 04/23/23 Range/Units 16:54 20:13 07:22 POC Glucose (mg/dL) 323 H 331 H 137 H (70-110) mg/dL 04/23/23 Range/Units 11:46 POC Glucose (mg/dL) 188 H (70-110) mg/dL Assessment and Plan (1) MSSA (methicillin susceptible Staphylococcus aureus) infection Current Visit: Yes Status: Acute Code(s): A49.01 - METHICILLIN SUSCEP STAPH INFECTION, UNSP SITE SNOMED Code(s): 556142217 (2) Diabetic infection of left foot Current Visit: No Status: Acute Code(s): E11.628 - TYPE 2 DIABETES MELLITUS WITH OTHER SKIN COMPLICATIONS; L08.9 - LOCAL INFECTION OF THE SKIN AND SUBCUTANEOUS TISSUE, UNSP SNOMED Code(s): 68456486 (3) Type 2 diabetes mellitus with foot ulcer Current Visit: No Status: Acute Code(s): E11.621 - TYPE 2 DIABETES MELLITUS WITH FOOT ULCER; L97.509 - NON-PRESSURE CHRONIC ULCER OTH PRT UNSP FOOT W UNSP SEVERITY SNOMED Code(s): 355185556 Plan: 1patient with a chronic nonhealing wound to the left foot lateral border in this patient who did have a history of left fifth toe gangrene status post amputation back on February 09, 2023 at that point he did have Morganella bacteremia and local culture positive for Enterococcus and Morganella for the patient has completed course of IV antibiotic therapy, patient now with a nonhealing wound and he did have a culture from the same area growing MSSA and anaerobic gram-positive cocci 2patient did have mild elevated inflammatory markers with a sed rate of 42. 3patient remains to be afebrile the patient white count almost normalized initially however the white count slightly up on 04/22/2023 will repeat CBC with a.m. lab 4-patient to continue with the cefazolin Flagyl for his left diabetic foot infection local wound care to continue with the wound VAC, and monitor clinical course closely Dictation was produced using [employer] dictation software. please excuse any g rammatical, word or spelling errors. 60 Time with Patient: Less than 30
[2023-04-23 16:49] LABS: Glucose,Whole Blood 340 mg/dL (70-110)
[2023-04-23] MEDS: MELATONIN 3 MG TABLET PO SCH (20:54)
[2023-04-23] MEDS: PALIPERIDONE 3 MG TAB.ER.24 PO SCH (20:54)
[2023-04-23] MEDS: HYDROcodone/APAP 5-325MG 1 EACH TAB PO PRN (20:54)
[2023-04-23] MEDS: ATORVASTATIN 80 MG TAB PO SCH (20:54)
[2023-04-23] MEDS: ESCITALOPRAM 20 MG TAB PO SCH (20:54)
[2023-04-23] MEDS: TOPIRAMATE 25 MG TAB PO SCH (20:55)
[2023-04-23 21:01] LABS: Glucose,Whole Blood 343 mg/dL (70-110)
[2023-04-24] MEDS: FUROSEMIDE 40 MG TAB PO SCH ×2 (06:08→13:09)
[2023-04-24 07:00] LABS: Glucose,Whole Blood 107 mg/dL (70-110)
--- NOTE | 2023-04-24 07:09 | P.PN ---
Subjective Progress Note Date: 04/23/23 67-year-old gentleman with past medical history significant for hypertension, hyperlipidemia, diabetes, CAD, cardiomyopathy with an ejection fraction of 25- 30% who was sent to ER from [facility] for abnormal labs. Patient had blood work done at a facility and was found to have a low hemoglobin level of 6.3. Patient denies any complaint of any blood in the stool. There was no complain of any nausea or vomiting or any hematemesis. Denies any abdominal pain. Patient has a wound on his left leg with wound VAC that he thinks he picked and was bleeding. Denies any chest pain or shortness of breath. He was no complain of lightheadedness or dizziness. Because of these abnormal labs, patient was sent to the ER Initial lab work done in the ER showed WBC 8.7, hemoglobin 7, platelet count 317, sodium 140, potassium 4, BUN 81, creatinine 1.34, glucose 161, FOBT positive 04/17/2023 Patient is seen and evaluated sitting up in bed; sitter at bedside Vital signs are reviewed and stable with temperature of 98, pulse 93, respiration 24 and blood pressure 131/74 with saturation 96% on 2 L Patient has been evaluated by psychiatry; patient meets criteria for inpatient psych admission; recommended to avoid use of narcotics and sedatives; discontinue Seroquel and replace with paliperidone by mouth 3 mg daily at bedtime for psychosis/mood stabilization/insomnia, continue lexapro 10 mg daily for mood/anxiety. Seroquel twice a day when necessary for agitation/psychosis. Melatonin 3 mg daily at bedtime for sleep -Continue 1:1 sitter for safety and suicidal thoughts -Cannot leave AMA at this time. Patient will need a petition and certification if attempting to leave AMA. 04/18/2023 Patient is seen and evaluated sitting up in bed with sitter bedside psychiatry recommendations; patient does meet criteria for inpatient psychiatric admission; remains on medical floor for multiple medical problems; psych following for medication adjustment and further treatment patient with a chronic nonhealing wound to the left foot lateral border in this patient who did have a history of left fifth toe gangrene status post amputation back on February 09, 2023 at that point he did have Morganella bacteremia and local culture positive for Enterococcus and Morganella for the patient has completed course of IV antibiotic therapy, patient now with a nonhealing wound and he did have a culture from the same area growing MSSA and anaerobic gram- positive cocci patient did have mild elevated inflammatory markers with a sed rate of 42. the patient did get a PICC line he will continue with cefazolin and Flagyl local wound care with a wound VAC and will monitor his clinical course closely 04/20/2023 Patient is seen in follow-up this morning continues with a suicide sitter at the bedside awaiting follow-up and reevaluation from psychiatry after adjustments has been made. Patient was reporting suicidal ideation although is not currently reporting any thoughts of wanting to harm himself or others. Patient continues on IV antibiotics with infectious disease following an discontinued with a wound VAC with plans on returning to [facility] for continued rehab and IV antibiotic therapy. Case management following as well awaiting on reevaluation from psychiatry as patient was reported to have met inpatient criteria guidelines. Patient does not meet criteria for inpatient psych here and would need outpatient referral services that can accommodate retirement as well. Patient is afebrile with no reported chest pain or shortness of breath. Patient is tolerating diet with no reported nausea or vomiting. 04/21/2023 Patient is seen in follow-up today continues with suicide sitter although patient reports is not suicidal and denies wanting to harm himself or others. Patient continues with wound VAC and local wound care along with antibiotics with multiple medical consultations following. General surgery evaluated the patient underwent endoscopy showing normal colonoscopy erosive gastritis on EGD otherwise negative findings. Patient's hemoglobin is stable and will follow-up with repeat labs in a.m. Blood sugars are slightly more elevated and will adjust medications accordingly. Patient is continued on sliding scale along with pre-meal insulins and long acting. Encouraged increased activity as tolerated. Plan was for return to [facility] although [facility] is now refusing and case management following working on other [facility] for continued wound care and antibiotic therapy. 04/22/2023 Patient is seen this morning and reports to feeling well. Patient blood sugars remain elevated and have adjusted long acting. Will adjust premeal as well and continue on sliding scale. Patient is afebrile and denies chest pain or shortness of breath. Patient is continued with wound vac and IV antibiotics with ID following. Patient is awaiting an accepting ecf for continued wound care and IV abx therapy. Recommend PT/ot daily. 04/23/2023 Patient is seen in follow-up today continued on IV antibiotics with infectious disease following along with wound care in the wound VAC of the left lower extremity. Patient be evaluated by physical therapy daily as patient will be going to ECF on discharge. Case management following currently working on an ECF that will be accepting that can accommodate psych services this patient Reported some suicidal thoughts. Patient was evaluated by psychiatry and has been cleared and suicide sitter was removed. Patient is denying any thoughts of suicidal ideation or wanting to harm himself or others. Patient does have a legal guardian and participates in the pace program and working on discharge planning. Patient is medically stable once ECF as arranged. Patient is curre ntly afebrile with no reported chest pain or shortness of breath. Patient is tolerating diet with no reported nausea or vomiting. Patient is a diabetic and will increase and adjust the medications once again his blood sugars are uncontrolled and elevated. Review of systems: Constitutional: No reports of fatigue, fever, or chills Cardiovascular: No reports of chest pain or palpitations Respiratory: No reports of shortness of breath or cough GI: No reports of nausea, vomiting, or diarrhea : No reports of dysuria or retention Neurovascular: reports of generalized weakness Physical exam: GENERAL: The patient is awake, alert and oriented x3, Well developed, well nourished. Obese HEENT: Pupils are round and equally reacting to light. EOMI. No scleral icterus. No conjunctival pallor. Normocephalic, atraumatic. No pharyngeal erythema. No thyromegaly. CARDIOVASCULAR: S1 and S2 muffled PULMONARY: Diminished breath sounds bilaterally otherwise clear to auscultation, no wheezing or crackles. ABDOMEN: Soft, obese. nontender, nondistended, normoactive bowel sounds. No palpable organomegaly. MUSCULOSKELETAL: Left foot wound VAC seen EXTREMITIES: No cyanosis, clubbing, bilateral pedal edema noted 1+ pitting. NEUROLOGICAL: Gross neurological examination did not reveal any focal deficits. Diffusely weak SKIN: No rashes. All medications have been reviewed Assessment: Chronic nonhealing ulcer of left foot, wound culture growing MSSA Acute blood loss anemia with EGD showing erosive gastritis and normal colonoscopy Suicidal thoughts, patient was evaluated by psychiatry and denies any suicidal thoughts or ideations wanting to harm himself or others, cleared by psychiatry and does not meet inpatient criteria for psychiatric services History of left foot wound with evidence of osteomyelitis status post amputation of the left fifth toe CAD with known chronic total occlusion of the distal RCA and intermediate disease involving the OM1 PAD with recent OVEREDGER involving the left SFA hypertension hyperlipidemia Hyperuricemia Acute gout COPD not in exacerbation chronic hypoxic respiratory failure on home O2 secondary to COPD Diabetes mellitus, type II, insulin-dependent, uncontrolled with hyperglycemia Obesity with a BMI of 30.6 GI prophylaxis DVT prophylaxis Full code Plan: Patient continue on IV antibiotics with infectious disease following in the form of cefazolin and Flagyl and will continue with wound VAC and wound care Psychiatry has reevaluated the patient and does not meet criteria for inpatient psych. Patient is not suicidal and denies any thoughts of wanting to harm himself or others. Suicide sitter being discontinued with adjustments to m edications being made per psychiatry and has signed off of the case. Case management following as original discharge plan was returning to [facility] although they are unable to accept the patient and case management has placed multiple other referrals to other facilities for continued ECF for wound care and IV antibiotic therapy. Will discuss with case management once there is in ECF available and if patient will require insurance authorization. Continue to monitor Accu-Cheks before meals and at bedtime and will adjust current regimen as patient's blood sugars remain uncontrolled. Will increase long acting and will adjust pre-meal TID as well, continue with sliding scale as well Continue with the wound VAC and local wound care and elevate lower extremity while at rest Recommend physical therapy evaluation daily Per case management this was discussed with guardian as well as the pace program is patient is a participant. Awaiting discharge planning and accepting ECF. Patient is medically stable. The impression and plan of care has been dictated by Irina Gamez, nurse practitioner as directed. Dr. Gilbert MD I have performed a history and examination and MDM of this patient, discussed the same with the dictator, and agree with the dictator's assessment and plan as written ,documented as a scribe. Based on total visit time, I have performed more than 50% of the visit. Any additional findings or plans will be noted. Objective - Vital Signs Vital signs: Vital Signs Temp 98.0 F 04/24/23 02:00 Pulse 76 04/24/23 02:00 Resp 20 04/24/23 02:00 BP 138/66 04/24/23 02:00 Pulse Ox 97 01/13/24 02:00 FiO2 Intake & Output 04/23/23 04/23/23 04/24/23 06:59 18:59 06:59 Intake Total 780 200 Output Total 1700 1200 Balance -1700 -420 200 Weight 104.9 kg Intake: Intake, IV Titration 200 Amount IV Fluid Continuation 1, 100 000 ml @ 0 mls/hr IV .[facility] Rx#:[id number] ceFAZolin 2 gm In Sodium 100 Chloride 0.9% 50 ml @ 100 mls/hr IVPB Q8HR [facility] Rx# :[id number] Oral 780 Output: Urine 1700 1200 Other: Voiding Method Bedside Commode Bedside Commode Diaper Diaper Diaper External Catheter External Catheter External Catheter # Bowel Movements 1 - Labs CBC & Chem 7: 04/22/23 05:49 04/22/23 05:49 Labs: Abnormal Lab Results - Last 24 Hours (Table) 04/23/23 04/23/23 04/23/23 Range/Units 07:22 11:46 16:45 POC Glucose (mg/dL) 137 H 188 H 340 H (70-110) mg/dL 04/23/23 Range/Units 21:00 POC Glucose (mg/dL) 343 H (70-110) mg/dL
[2023-04-24] MEDS: IPRATROPIUM-ALBUTEROL 3 ML NEB INHALATION SCH ×4 (07:46→18:06)
[2023-04-24] MEDS: metroNIDAZOLE 500 MG TAB PO SCH ×3 (08:35→21:12)
[2023-04-24] MEDS: ASPIRIN 81 MG PO SCH (08:35)
[2023-04-24] MEDS: SUCRALFATE 1 GM TAB PO SCH ×4 (08:36→21:13)
[2023-04-24] MEDS: LACTOBACILLUS ACIDOPHILUS/PECT 1 EACH CAPSULE PO SCH ×2 (08:36→16:58)
[2023-04-24] MEDS: DICYCLOMINE 10 MG CAP PO SCH ×3 (08:36→16:58)
[2023-04-24] MEDS: FERROUS SULFATE 325 MG TAB PO SCH (08:36)
[2023-04-24] MEDS: predniSONE 10 MG TAB PO SCH (08:36)
[2023-04-24] MEDS: METOPROLOL TARTRATE 12.5 MG TAB PO SCH ×2 (08:36→21:13)
[2023-04-24] MEDS: FAMOTIDINE 20 MG TAB PO SCH ×2 (08:36→21:13)
[2023-04-24] MEDS: ISOSORBIDE MONONITRATE ER 30 MG TAB.ER.24H PO SCH (08:36)
[2023-04-24] MEDS: PANTOPRAZOLE 40 MG/10 ML VIAL IVP SCH ×2 (08:37→21:11)
[2023-04-24] MEDS: INSULIN ASPART (NovoLOG) 100 UNIT/ML VIAL SQ SCH ×7 (08:37→21:12)
[2023-04-24] MEDS: COLCHICINE 0.6 MG EACH PO SCH ×2 (08:38→21:13)
[2023-04-24] MEDS: INSULIN DETEMIR (LEVEMIR) 100 UNIT/ML SYR SQ SCH ×2 (08:46→21:12)
[2023-04-24 09:38] LABS: Anisocytosis Slight; Basophils % (A) 0 %; Eosinophils # (A) 0.1 k/uL (0-0.7); Eosinophils % (A) 1 %; HGB 9.6 gm/dL (13.0-17.5); Hypochromasia Moderate; Lymphocytes # (A) 1.4 k/uL (1.0-4.8); Lymphocytes % (A) 16 %; MCH 29.6 pg (25.0-35.0); MCHC 32.1 g/dL (31.0-37.0); MCV 92.4 fL (80.0-100.0); Mean Platelet Volume 8.2; Monocytes # (A) 0.5 k/uL (0-1.0); Monocytes % (A) 5 %; Neutrophils # (A) 6.7 k/uL (1.3-7.7); Neutrophils % (A) 76 %; Platelet Count 190 k/uL (150-450); RBC 3.25 m/uL (4.30-5.90); RDW 16.7 % (11.5-15.5); WBC 8.8 k/uL (3.8-10.6)
--- NOTE | 2023-04-24 12:29 | P.PN ---
Subjective Progress Note Date: 04/24/23 Principal diagnosis: Reason for follow-up is left diabetic foot ulcer with recent culture positive for MSSA and anaerobes Patient is a 67-year-old male with a past medical history significant for hypertension hyperlipidemia [place] diabetes mellitus dementia patient was rece ntly admitted to this facility with left fifth toe gangrene status post amputation he did have a Morganella bacteremia at that point the patient completed his antibiotic therapy patient to follow at [facility] apparently the patient have a culture done on 03/24/2023 that grew MSSA and anaerobes patient not very clear if he received any treatment for the presenting to the hospital with hemoglobin of 6.3 On today's evaluation that is 04/24/2023 the patient remains to be afebrile, the patient is breathing comfortably on 2 L nasal cannula oxygen, patient denies any chest pain or shortness of breath, the patient did have occasional dry cough patient denies any nausea vomiting abdominal pain and denies pain to the left foot wound area, feeling better Patient white count normalized to 8.8, creatinine is 1.2 as of 04/22/2023, blood culture this admission has been negative Objective - Vital Signs Vital signs: Vital Signs Temp 97.5 F L 04/24/23 08:00 Pulse 68 04/24/23 11:46 Resp 19 04/24/23 08:00 BP 107/67 04/24/23 08:00 Pulse Ox 97 04/24/23 08:00 FiO2 Intake & Output 04/23/23 04/24/23 04/24/23 18:59 06:59 18:59 Intake Total 780 200 Output Total 1200 1500 Balance -420 -1300 Intake: Intake, IV Titration 200 Amount IV Fluid Continuation 1, 100 000 ml @ 0 mls/hr IV [facility] Rx#:[id number] ceFAZolin 2 gm In Sodium 100 Chloride 0.9% 50 ml @ 100 mls/hr IVPB Q8HR [facility] Rx# :[id number] Oral 780 Output: Urine 1200 1500 Other: Voiding Method Bedside Commode Diaper Diaper Diaper External Catheter External Catheter External Catheter # Bowel Movements 1 - Exam GENERAL DESCRIPTION: An elderly male lying in bed in no distress RESPIRATORY SYSTEM: Unlabored breathing , decreased breath sounds at bases HEART: S1 S2 regular rate and rhythm , ABDOMEN: Soft , no tenderness EXTREMITIES: Left fifth toe amputation site wound is covered with a wound VAC - Labs CBC & Chem 7: 04/24/23 08:28 04/22/23 05:49 Labs: Abnormal Lab Results - Last 24 Hours (Table) 04/23/23 04/23/23 04/24/23 Range/Units 16:45 21:00 08:28 RBC 3.25 L (4.30-5.90) m/uL Hgb 9.6 L D (13.0-17.5) gm/dL Hct 30.0 L (39.0-53.0) % RDW 16.7 H (11.5-15.5) % POC Glucose (mg/dL) 340 H 343 H (70-110) mg/dL Assessment and Plan (1) MSSA (methicillin susceptible Staphylococcus aureus) infection Current Visit: Yes Status: Acute Code(s): A49.01 - METHICILLIN SUSCEP STAPH INFECTION, UNSP SITE SNOMED Code(s): 834592280 (2) Diabetic infection of left foot Current Visit: No Status: Acute Code(s): E11.628 - TYPE 2 DIABETES MELLITUS WITH OTHER SKIN COMPLICATIONS; L08.9 - LOCAL INFECTION OF THE SKIN AND SUBCUTANEOUS TISSUE, UNSP SNOMED Code(s): 69667818 (3) Type 2 diabetes mellitus with foot ulcer Current Visit: No Status: Acute Code(s): E11.621 - TYPE 2 DIABETES MELLITUS WITH FOOT ULCER; L97.509 - NON-PRESSURE CHRONIC ULCER OTH PRT UNSP FOOT W UNSP SEVERITY SNOMED Code(s): 844575114 Plan: 1patient with a chronic nonhealing wound to the left foot lateral border in this patient who did have a history of left fifth toe gangrene status post amputation back on February 09, 2023 at that point he did have Morganella bacteremia and local culture positive for Enterococcus and Morganella for the patient has completed course of IV antibiotic therapy, patient now with a nonhealing wound and he did have a culture from the same area growing MSSA and anaerobic gram-positive cocci 2patient did have mild elevated inflammatory markers with a sed rate of 42. 3patient remains to be afebrile the patient white count has normalized 4-patient currently covered with the cefazolin Flagyl for his left diabetic foot infection local wound care to continue with the wound VAC, question concern. Dictation was produced using [employer] software. please excuse any grammatical, word or spelling errors. 60 Time with Patient: Less than 30
[2023-04-24 12:57] LABS: Glucose,Whole Blood 153 mg/dL (70-110)
[2023-04-24 14:31] LABS: BUN/Creat Ratio 50.64 Ratio (12.00-20.00); Blood Urea Nitrogen 55.7 mg/dL (9.0-27.0); Calcium 8.6 mg/dL (8.7-10.3); Chloride 101 mmol/L (96-109); Glucose 73 mg/dL (70-110); Potassium 3.8 mmol/L (3.5-5.5); Sodium 141 mmol/L (135-145)
--- NOTE | 2023-04-24 15:08 | P.PN ---
Subjective Progress Note Date: 04/24/23 NAEON. No further melena or hematochezia. No abdominal pain. No N/V. No F/C. Admits to flatus, no BM. Objective - Vital Signs Vital signs: Vital Signs Temp 97.9 F 04/24/23 13:15 Pulse 70 04/24/23 13:15 Resp 18 04/24/23 13:15 BP 105/65 04/24/23 13:15 Pulse Ox 97 04/24/23 13:15 FiO2 Intake & Output 04/23/23 04/24/23 04/24/23 18:59 06:59 18:59 Intake Total 780 200 Output Total 1200 1500 Balance -420 -1300 Intake: Intake, IV Titration 200 Amount IV Fluid Continuation 1, 100 000 ml @ 0 mls/hr IV .[facility] Rx#:[id number] ceFAZolin 2 gm In Sodium 100 Chloride 0.9% 50 ml @ 100 mls/hr IVPB Q8HR [facility] Rx# :[id number] Oral 780 Output: Urine 1200 1500 Other: Voiding Method Bedside Commode Diaper Diaper Diaper External Catheter External Catheter External Catheter # Bowel Movements 1 - Exam Gen: AxO, NAD Pulm: non-labored respirations Abd: soft, non-tender, non-distended. No guarding/rebound/rigidity Extrem: no edema seen; LLE wound vac C/D/I, serosang output seen - Labs CBC & Chem 7: 04/24/23 08:28 04/24/23 08:28 Labs: Abnormal Lab Results - Last 24 Hours (Table) 04/23/23 04/23/23 04/24/23 Range/Units 16:45 21:00 08:28 RBC 3.25 L (4.30-5.90) m/uL Hgb 9.6 L D (13.0-17.5) gm/dL Hct 30.0 L (39.0-53.0) % RDW 16.7 H (11.5-15.5) % BUN (9.0-27.0) mg/dL BUN/Creatinine Ratio (12.00-20.00) Ratio POC Glucose (mg/dL) 340 H 343 H (70-110) mg/dL Calcium (8.7-10.3) mg/dL 04/24/23 04/24/23 Range/Units 08:28 12:50 RBC (4.30-5.90) m/uL Hgb (13.0-17.5) gm/dL Hct (39.0-53.0) % RDW (11.5-15.5) % BUN 55.7 H (9.0-27.0) mg/dL BUN/Creatinine Ratio 50.64 H (12.00-20.00) Ratio POC Glucose (mg/dL) 153 H (70-110) mg/dL Calcium 8.6 L (8.7-10.3) mg/dL Assessment and Plan Assessment: Patient is a 67 year old male who presents with lower GIB, now resolved Plan: -Diet as tolerated -Trend Hb; transfuse per primary -PRN pain and nausea control -DVT/GI Ppx -No acute surgical intervention Heri Trotter MD General Surgery
[2023-04-24 17:35] LABS: Glucose,Whole Blood 258 mg/dL (70-110)
[2023-04-24 20:11] LABS: Glucose,Whole Blood 325 mg/dL (70-110)
[2023-04-24] MEDS: MELATONIN 3 MG TABLET PO SCH (21:11)
[2023-04-24] MEDS: ATORVASTATIN 80 MG TAB PO SCH (21:11)
[2023-04-24] MEDS: PALIPERIDONE 3 MG TAB.ER.24 PO SCH (21:13)
[2023-04-24] MEDS: HYDROcodone/APAP 5-325MG 1 EACH TAB PO PRN (21:13)
[2023-04-24] MEDS: TOPIRAMATE 25 MG TAB PO SCH (21:13)
--- NOTE | 2023-04-24 21:41 | PN ---
PROGRESS NOTE DATE OF SERVICE: 04/24/2023 SUBJECTIVE: This 67-year-old gentleman who was admitted with chronic nonhealing ulcer, is growing MSSA. ECF rehab is being planned. The patient is on IV antibiotics. Infectious Disease and multiple consultants are following the patient closely. OBJECTIVE: VITAL SIGNS: Pulse is 58, blood pressure 106/60, and respirations 18. CHEST: Few scattered rhonchi. ABDOMEN: Soft. NERVOUS SYSTEM: Nonfocal. LEGS: Wound present. LABORATORY DATA: Reviewed. ASSESSMENT: 1. Chronic nonhealing ulcer of the left foot wound with acute cellulitis with methicillin-susceptible Staphylococcus aureus. 2. Acute blood loss anemia. EGD showed erosive gastritis and normal colonoscopy. 3. Suicidal thoughts. 4. Coronary artery disease. 5. Peripheral vascular disease. 6. Multiple complex medical issues. RECOMMENDATIONS AND DISCUSSION: I recommended to continue current management and recommend repeat labs in the morning. Otherwise, continue with IV antibiotics, PT and OT evaluation, possible ECF return, and prognosis guarded. Further recommendations to follow. MMODL / IJN: [id number] /
[2023-04-25] MEDS: FUROSEMIDE 40 MG TAB PO SCH ×2 (06:15→12:55)
[2023-04-25 07:32] LABS: Glucose,Whole Blood 120 mg/dL (70-110)
[2023-04-25] MEDS: INSULIN ASPART (NovoLOG) 100 UNIT/ML VIAL SQ SCH ×7 (07:37→22:10)
[2023-04-25] MEDS: IPRATROPIUM-ALBUTEROL 3 ML NEB INHALATION SCH ×4 (07:49→18:03)
[2023-04-25 08:20] LABS: African American GFR (CKD) 68 (>60 ml/min/1.73 sqM); Anion Gap 9 mmol/L; Blood Urea Nitrogen 64 mg/dL (9-20); Calcium 8.6 mg/dL (8.4-10.2); Carbon Dioxide 29 mmol/L (22-30); Chloride 99 mmol/L (98-107); Glucose 113 mg/dL (74-99); Non-African American GFR(CKD) 58 (>60 ml/min/1.73 sqM); Potassium 3.9 mmol/L (3.5-5.1); Sodium 137 mmol/L (137-145)
[2023-04-25] MEDS: metroNIDAZOLE 500 MG TAB PO SCH ×3 (08:58→22:12)
[2023-04-25] MEDS: predniSONE 10 MG TAB PO SCH (08:58)
[2023-04-25] MEDS: FAMOTIDINE 20 MG TAB PO SCH ×2 (08:58→22:11)
[2023-04-25] MEDS: DICYCLOMINE 10 MG CAP PO SCH ×3 (08:58→18:02)
[2023-04-25] MEDS: ISOSORBIDE MONONITRATE ER 30 MG TAB.ER.24H PO SCH (08:58)
[2023-04-25] MEDS: SUCRALFATE 1 GM TAB PO SCH ×4 (08:58→22:12)
[2023-04-25] MEDS: LACTOBACILLUS ACIDOPHILUS/PECT 1 EACH CAPSULE PO SCH ×2 (08:59→18:02)
[2023-04-25] MEDS: PANTOPRAZOLE 40 MG/10 ML VIAL IVP SCH ×2 (08:59→22:11)
[2023-04-25] MEDS: ASPIRIN 81 MG PO SCH (08:59)
[2023-04-25] MEDS: FERROUS SULFATE 325 MG TAB PO SCH (08:59)
[2023-04-25] MEDS: METOPROLOL TARTRATE 12.5 MG TAB PO SCH ×2 (08:59→22:12)
[2023-04-25] MEDS: INSULIN DETEMIR (LEVEMIR) 100 UNIT/ML SYR SQ SCH ×2 (08:59→22:10)
[2023-04-25] MEDS: COLCHICINE 0.6 MG EACH PO SCH ×2 (09:00→22:12)
[2023-04-25 10:14] LABS: Basophils # (A) 0.01 X 10*3/uL (0.00-0.10); Basophils % (A) 0.1 %; Eosinophils # (A) 0.03 X 10*3/uL (0.04-0.35); Eosinophils % (A) 0.3 %; HCT 31.7 % (39.6-50.0); HGB 9.8 g/dL (13.0-17.0); Lymphocytes # (A) 0.94 X 10*3/uL (0.90-5.00); Lymphocytes % (A) 9.1 %; MCH 28.9 pg (27.0-32.0); MCHC 30.9 g/dL (32.0-37.0); MCV 93.5 FL (80.0-97.0); Mean Platelet Volume 10.5 FL (9.5-12.2); Monocytes # (A) 0.66 X 10*3/uL (0.20-1.00); Monocytes % (A) 6.4 %; NRBC Per 100 WBC 0 X 10*3/uL (0.00-0.01); Neutrophils # (A) 8.46 X 10*3/uL (1.80-7.70); Neutrophils % (A) 82.3 %; Platelet Count 187 X 10*3/uL (140-440); RBC 3.39 X 10*6/uL (4.40-5.60); RDW 17.2 % (11.5-14.5); WBC 10.29 X 10*3/uL (4.50-10.00)
[2023-04-25 12:15] LABS: Glucose,Whole Blood 138 mg/dL (70-110)
--- NOTE | 2023-04-25 14:44 | P.PN ---
Subjective Progress Note Date: 04/25/23 CHIEF COMPLAINT: GI bleed HISTORY OF PRESENT ILLNESS: The patient is a 67-year-old male with anemia. No blood in stools. No hemoptysis. He completed his regular diet for lunch. No further bleeding. ROS: No reports of nausea and vomiting. No fevers or chills. No new chest pain. No productive sputum PHYSICAL EXAM: VITAL SIGNS: Reviewed CONSTITUTIONAL: Well developed and in no acute distress. EYES: Conjuctivae without sclera icterus. Extraocular movements grossly intact. HEAD, EARS, NOSE, THROAT: Moist buccal mucosa. Head is atraumatic, normocephalic. Hears conversational speech. No nasal drainage. RESPIRATORY: Non-labored respirations and equal bilateral excursions. CARDIOVASCULAR: Palpable 2+ radial pulses. ABDOMEN: No peritonitis MUSCULOSKELETAL: No gross deformity of the lower extremities noted. No clubbing. No cyanosis. SKIN: Good skin turgor. Well perfused. NEUROLOGIC: Cranial nerves II through XII grossly intact. No focal or lateralizing signs. PSYCH: Appropriate affect. Alert and oriented to person, place and time. CLINICAL LABS: Reviewed. WBC elevated 10.4. Hgb 9.2 ASSESSMENT: 1. GI bleed 2. Anemia PLAN: 1. No blood in stools. No hemoptysis. He completely his regular diet for lunch. No further bleeding. Objective - Vital Signs Vital signs: Vital Signs Temp 98 F 04/25/23 13:47 Pulse 67 04/25/23 13:47 Resp 17 04/25/23 13:47 BP 107/64 04/25/23 13:47 Pulse Ox 97 04/25/23 13:47 FiO2 Intake & Output 04/24/23 04/25/23 04/25/23 18:59 06:59 18:59 Intake Total 540 240 Output Total 600 1400 Balance -60 -1160 Weight 111.6 kg Intake: Oral 540 240 Output: Urine 600 700 Stool 700 Other: Voiding Method Diaper Diaper Diaper External Catheter Incontinent Incontinent External Catheter External Catheter - Labs CBC & Chem 7: 04/26/23 07:06 04/26/23 07:06 Labs: Abnormal Lab Results - Last 24 Hours (Table) 04/24/23 04/24/23 04/25/23 Range/Units 17:32 20:09 07:03 WBC 10.29 H (4.50-10.00) X 10*3/uL RBC 3.39 L (4.40-5.60) X 10*6/uL Hgb 9.8 L (13.0-17.0) g/dL Hct 31.7 L (39.6-50.0) % MCHC 30.9 L (32.0-37.0) g/dL RDW 17.2 H (11.5-14.5) % Immature Gran # 0.19 H (0.00-0.04) X 10*3/uL Neutrophils # 8.46 H (1.80-7.70) X 10*3/uL Eosinophils # 0.03 L (0.04-0.35) X 10*3/uL BUN (9-20) mg/dL Creatinine (0.66-1.25) mg/dL Glucose (74-99) mg/dL POC Glucose (mg/dL) 258 H 325 H (70-110) mg/dL 04/25/23 04/25/23 04/25/23 Range/Units 07:03 07:07 12:07 WBC (4.50-10.00) X 10*3/uL RBC (4.40-5.60) X 10*6/uL Hgb (13.0-17.0) g/dL Hct (39.6-50.0) % MCHC (32.0-37.0) g/dL RDW (11.5-14.5) % Immature Gran # (0.00-0.04) X 10*3/uL Neutrophils # (1.80-7.70) X 10*3/uL Eosinophils # (0.04-0.35) X 10*3/uL BUN 64 H (9-20) mg/dL Creatinine 1.28 H (0.66-1.25) mg/dL Glucose 113 H (74-99) mg/dL POC Glucose (mg/dL) 120 H 138 H (70-110) mg/dL
[2023-04-25 17:25] LABS: Glucose,Whole Blood 227 mg/dL (70-110)
[2023-04-25 19:46] LABS: Glucose,Whole Blood 260 mg/dL (70-110)
[2023-04-25] MEDS: MELATONIN 3 MG TABLET PO SCH (22:11)
[2023-04-25] MEDS: HYDROcodone/APAP 5-325MG 1 EACH TAB PO PRN (22:11)
[2023-04-25] MEDS: TOPIRAMATE 25 MG TAB PO SCH (22:12)
[2023-04-25] MEDS: ESCITALOPRAM 20 MG TAB PO SCH ×2 (22:12)
[2023-04-25] MEDS: ATORVASTATIN 80 MG TAB PO SCH (22:12)
[2023-04-25] MEDS: PALIPERIDONE 3 MG TAB.ER.24 PO SCH (22:13)
--- NOTE | 2023-04-26 04:07 | PN ---
PROGRESS NOTE DATE OF SERVICE: 04/25/2023 SUBJECTIVE: This is a 67-year-old gentleman, who was admitted with left foot infection and wound VAC. ECF rehab is awaited. No chest pain or palpitation. OBJECTIVE: VITAL SIGNS: Pulse 72, blood pressure 140/80, respirations 18. CHEST: Clear to auscultation. CARDIOVASCULAR: S1, S2. ABDOMEN: Soft. NERVOUS SYSTEM: Nonfocal. LABORATORY DATA: WBC 10.29, creatinine 1.28. ASSESSMENT: 1. Chronic nonhealing ulcer of the left foot wound with acute cellulitis with methicillin-susceptible Staphylococcus aureus. 2. Acute blood loss anemia, EGD showing erosive gastritis and normal colonoscopy. 3. Suicidal thoughts, improved. 4. Coronary artery disease. 5. Peripheral vascular disease. 6. Multiple complex medical issues. RECOMMENDATIONS: Recommend to continue current management, continue symptomatic treatment. Otherwise, I would recommend repeat labs tomorrow and closely follow. Possible ECF rehab. Further recommendations to follow. MMODL / IJN: [id number] / MISSY
[2023-04-26] MEDS: FUROSEMIDE 40 MG TAB PO SCH ×2 (05:52→14:02)
[2023-04-26] MEDS: IPRATROPIUM-ALBUTEROL 3 ML NEB INHALATION SCH ×3 (07:38→15:28)
[2023-04-26 08:00] LABS: Glucose,Whole Blood 109 mg/dL (70-110)
--- NOTE | 2023-04-26 08:05 | P.PN ---
Subjective Progress Note Date: 04/25/23 Principal diagnosis: Reason for follow-up is left diabetic foot ulcer with recent culture positive for MSSA and anaerobes Patient is a 67-year-old male with a past medical history significant for hypertension hyperlipidemia AL diabetes mellitus dementia patient was rece ntly admitted to this facility with left fifth toe gangrene status post amputation he did have a Morganella bacteremia at that point the patient completed his antibiotic therapy patient to follow at [facility] apparently the patient have a culture done on 03/24/2023 that grew MSSA and anaerobes patient not very clear if he received any treatment for the presenting to the hospital with hemoglobin of 6.3 On today's evaluation that is 04/25/2023, the patient remains to be afebrile, the patient is breathing comfortably on 2 L nasal cannula oxygen, the patient denies any shortness of breath, the patient denies chest pain or any cough , patient denies any nausea/vomiting abdominal pain or diarrhea, the patient denies pain to the left foot wound area, feeling better Patient white count normalized to 10.29 creatinine is 1.28 , blood culture this admission has been negative Objective - Vital Signs Vital signs: Vital Signs Temp 98 F 04/25/23 13:47 Pulse 72 04/25/23 15:28 Resp 17 04/25/23 13:47 BP 107/64 04/25/23 13:47 Pulse Ox 97 04/25/23 13:47 FiO2 Intake & Output 04/24/23 04/25/23 04/25/23 18:59 06:59 18:59 Intake Total 540 240 Output Total 600 1400 1250 Balance -60 -1160 -1250 Weight 111.6 kg Intake: Oral 540 240 Output: Urine 293 640 6089 Stool 700 Other: Voiding Method Diaper Diaper Diaper External Catheter Incontinent Incontinent External Catheter External Catheter # Bowel Movements 1 - Exam GENERAL DESCRIPTION: An elderly male lying in bed in no distress RESPIRATORY SYSTEM: Unlabored breathing , decreased breath sounds at bases HEART: S1 S2 regular rate and rhythm , ABDOMEN: Soft , no tenderness EXTREMITIES: Left fifth toe amputation site wound is covered with a wound VAC - Labs CBC & Chem 7: 04/25/23 07:03 04/25/23 07:03 Labs: Abnormal Lab Results - Last 24 Hours (Table) 04/24/23 04/24/23 04/25/23 Range/Units 17:32 20:09 07:03 WBC 10.29 H (4.50-10.00) X 10*3/uL RBC 3.39 L (4.40-5.60) X 10*6/uL Hgb 9.8 L (13.0-17.0) g/dL Hct 31.7 L (39.6-50.0) % MCHC 30.9 L (32.0-37.0) g/dL RDW 17.2 H (11.5-14.5) % Immature Gran # 0.19 H (0.00-0.04) X 10*3/uL Neutrophils # 8.46 H (1.80-7.70) X 10*3/uL Eosinophils # 0.03 L (0.04-0.35) X 10*3/uL BUN (9-20) mg/dL Creatinine (0.66-1.25) mg/dL Glucose (74-99) mg/dL POC Glucose (mg/dL) 258 H 325 H (70-110) mg/dL 04/25/23 04/25/23 04/25/23 Range/Units 07:03 07:07 12:07 WBC (4.50-10.00) X 10*3/uL RBC (4.40-5.60) X 10*6/uL Hgb (13.0-17.0) g/dL Hct (39.6-50.0) % MCHC (32.0-37.0) g/dL RDW (11.5-14.5) % Immature Gran # (0.00-0.04) X 10*3/uL Neutrophils # (1.80-7.70) X 10*3/uL Eosinophils # (0.04-0.35) X 10*3/uL BUN 64 H (9-20) mg/dL Creatinine 1.28 H (0.66-1.25) mg/dL Glucose 113 H (74-99) mg/dL POC Glucose (mg/dL) 120 H 138 H (70-110) mg/dL Assessment and Plan (1) MSSA (methicillin susceptible Staphylococcus aureus) infection Current Visit: Yes Status: Acute Code(s): A49.01 - METHICILLIN SUSCEP STAPH INFECTION, UNSP SITE SNOMED Code(s): 302247210 (2) Diabetic infection of left foot Current Visit: No Status: Acute Code(s): E11.628 - TYPE 2 DIABETES MELLITUS WITH OTHER SKIN COMPLICATIONS; L08.9 - LOCAL INFECTION OF THE SKIN AND SUBCUTANEOUS TISSUE, UNSP SNOMED Code(s): 60469563 (3) Type 2 diabetes mellitus with foot ulcer Current Visit: No Status: Acute Code(s): E11.621 - TYPE 2 DIABETES MELLITUS WITH FOOT ULCER; L97.509 - NON-PRESSURE CHRONIC ULCER OTH PRT UNSP FOOT W UNSP SEVERITY SNOMED Code(s): 460183101 Plan: 1patient with a chronic nonhealing wound to the left foot lateral border in this patient who did have a history of left fifth toe gangrene status post amputation back on February 09, 2023 at that point he did have Morganella bacteremia and local culture positive for Enterococcus and Morganella for the patient has completed course of IV antibiotic therapy, patient now with a nonhealing wound and he did have a culture from the same area growing MSSA and anaerobic gram-positive cocci 2patient did have mild elevated inflammatory markers with a sed rate of 42. 3patient remains to be afebrile the patient white count has normalized 4-patient to continue cefazolin Flagyl for his left diabetic foot infection x 4 weeks on discharge local wound care to continue with the wound VAC, Dictation was produced using [employer] dictation software. please excuse any grammatical, word or spelling errors. Time with Patient: Less than 30
[2023-04-26] MEDS: INSULIN ASPART (NovoLOG) 100 UNIT/ML VIAL SQ SCH ×4 (08:27→12:45)
[2023-04-26] MEDS: METOPROLOL TARTRATE 12.5 MG TAB PO SCH (08:46)
[2023-04-26] MEDS: ISOSORBIDE MONONITRATE ER 30 MG TAB.ER.24H PO SCH (08:46)
[2023-04-26] MEDS: FERROUS SULFATE 325 MG TAB PO SCH (08:46)
[2023-04-26] MEDS: SUCRALFATE 1 GM TAB PO SCH ×2 (08:46→12:44)
[2023-04-26] MEDS: FAMOTIDINE 20 MG TAB PO SCH (08:47)
[2023-04-26] MEDS: PANTOPRAZOLE 40 MG/10 ML VIAL IVP SCH (08:47)
[2023-04-26] MEDS: metroNIDAZOLE 500 MG TAB PO SCH (08:47)
[2023-04-26] MEDS: LACTOBACILLUS ACIDOPHILUS/PECT 1 EACH CAPSULE PO SCH (08:47)
[2023-04-26] MEDS: DICYCLOMINE 10 MG CAP PO SCH ×2 (08:47→12:44)
[2023-04-26] MEDS: COLCHICINE 0.6 MG EACH PO SCH (08:47)
[2023-04-26] MEDS: predniSONE 10 MG TAB PO SCH (08:47)
[2023-04-26] MEDS: ASPIRIN 81 MG PO SCH (08:47)
[2023-04-26] MEDS: INSULIN DETEMIR (LEVEMIR) 100 UNIT/ML SYR SQ SCH (08:48)
[2023-04-26 08:50] VITALS: BP 128/75; RESP 18; TEMP 97.7
[2023-04-26 11:07] LABS: Basophils # (A) 0.01 X 10*3/uL (0.00-0.10); Basophils % (A) 0.1 %; Eosinophils # (A) 0.02 X 10*3/uL (0.04-0.35); Eosinophils % (A) 0.2 %; HCT 30.8 % (39.6-50.0); HGB 9.4 g/dL (13.0-17.0); Lymphocytes # (A) 0.65 X 10*3/uL (0.90-5.00); Lymphocytes % (A) 7.2 %; MCHC 30.5 g/dL (32.0-37.0); MCV 95.1 FL (80.0-97.0); Mean Platelet Volume 11.4 FL (9.5-12.2); Monocytes # (A) 0.52 X 10*3/uL (0.20-1.00); Monocytes % (A) 5.8 %; NRBC Per 100 WBC 0 X 10*3/uL (0.00-0.01); Neutrophils # (A) 7.77 X 10*3/uL (1.80-7.70); Platelet Count 155 X 10*3/uL (140-440); RBC 3.24 X 10*6/uL (4.40-5.60); RDW 16.8 % (11.5-14.5); WBC 9.03 X 10*3/uL (4.50-10.00)
[2023-04-26 11:13] VITALS: PULSE 68
[2023-04-26 11:37] LABS: BUN/Creat Ratio 54.18 Ratio (12.00-20.00); Blood Urea Nitrogen 59.6 mg/dL (9.0-27.0); Calcium 8.7 mg/dL (8.7-10.3); Carbon Dioxide 31.1 mmol/L (21.6-31.8); Chloride 102 mmol/L (96-109); Glucose 126 mg/dL (70-110); Potassium 4.2 mmol/L (3.5-5.5); Sodium 142 mmol/L (135-145)
[2023-04-26 11:58] LABS: Glucose,Whole Blood 153 mg/dL (70-110)
--- NOTE | 2023-04-26 13:10 | P.DS ---
Providers Date of admission: 04/09/23 20:29 Expected date of discharge: 04/26/23 Attending physician: Joselo Hunt Consults: 04/10/23 10:02 Consult Physician Routine Consulting Provider: Jessica Thompson Consult Reason/Comments: Left foot osteomyelitis, evaluate for duration of antibiotics Do you want consulting provider notified?: Yes 04/15/23 13:21 Consult Physician Urgent Consulting Provider: Luis Fernando Arce Consult Reason/Comments: suicidal thoughts, depression, possible paranoia Do you want consulting provider notified?: Yes 04/21/23 11:47 Consult Physician Routine Consulting Provider: Anselmo Anne Consult Reason/Comments: anemia Do you want consulting provider notified?: Already Contacted Primary care physician: Simon Bautista [facility] Course: Final diagnosis Chronic nonhealing ulcer of left foot, wound culture growing MSSA Acute blood loss anemia with EGD showing erosive gastritis and normal colonoscopy Suicidal thoughts, patient was evaluated by psychiatry and denies any suicidal thoughts or ideations wanting to harm himself or others, cleared by psychiatry and does not meet inpatient criteria for psychiatric services History of left foot wound with evidence of osteomyelitis status post amputation of the left fifth toe CAD with known chronic total occlusion of the distal RCA and intermediate disease involving the OM1 PAD with recent LOCAL [employer]RATOR involving the left SFA hypertension hyperlipidemia Hyperuricemia Acute gout COPD not in exacerbation chronic hypoxic respiratory failure on home O2 secondary to COPD Diabetes mellitus, type II, insulin-dependent, uncontrolled with hyperglycemia Obesity with a BMI of 30.6 GI prophylaxis DVT prophylaxis Full code Discharge disposition Patient is being discharged in a stable condition with guarded prognosis to [facility] . Patient will follow-up with Dr. Bautista in the outpatient setting upon discharge. Patient is to continue with IV antibiotics per ID recommendations and outpatient follow-up with Dr. Thompson as scheduled. Total time taken is greater than 35 minutes. Hospital course This is a 67-year-old male who was recently admitted with abnormal labs with a low hemoglobin and was seen and evaluated by general surgery underwent EGD with no active bleeding noted. Patient also being followed by infectious disease for left lower extremity wound that is not healing and had received a PICC line outpatient and continued on antibiotics with wound VAC as well. Hemoglobin is stable and patient has been cleared by consultations and patient has been accepted at [facility] for continued wound care and IV antibiotic therapy. Patient does have a guardian and was seen and evaluated by psychiatry as well as patient did report a brief period of suicidal thoughts shortly after anesthesia from EGD. Patient has been cleared by psychiatry [facility] outpatient services and was started on antidepressant. Patient with extremely uncontrolled blood sugars recommend monitoring Accu-Cheks before meals and at bedtime and 2 AM and treating with pre-meal along with sliding scale and long-acting. Patient has had adjustments to long-acting and would recommend closely monitoring and adjusting as needed. Patient follow-up with infectious disease in the wound care outpatient for the left lower extremity nonhealing wound. Please refer to other consultation notes for further HPI. Currently no reports of chest pain, shortness of breath, or palpitations. Patient is afebrile. No reports of nausea or vomiting and patient is tolerating diet. Patient will be going to [facility] today. Guarded prognosis Physical exam: Gen: This is a 67-year-old male who is awake, alert and oriented 3, well- developed, well-nourished, obese HEENT: Head is atraumatic, normocephalic. Pupils equal, round. Sclerae is anicteric. NECK: Supple. No JVD. No lymphadenopathy. No thyromegaly. LUNGS: Diminished breath sounds bilaterally otherwise Clear to auscultation. No wheezes or rhonchi. No intercostal retractions. HEART: Regular rate and rhythm. No murmur. ABDOMEN: Soft. Obese Bowel sounds are present. No masses. No tenderness. EXTREMITIES: No pedal edema. No calf tenderness. Left lower extremity foot wou nd with a wound VAC noted NEUROLOGICAL: Patient is awake, alert and oriented x3. Cranial nerves 2 through 12 are grossly intact. Diffusely weak Please refer to medication reconciliation sheet for a list of medications. The impression and plan of care has been dictated by Irina Gamez, Nurse Practitioner as directed. Dr. Gilbert MD I have performed a history and examination and MDM of this patient, discussed the same with the dictator, and agree with the dictator's assessment and plan as written ,documented as a scribe. Based on total visit time, I have performed more than 50% of the visit. Patient Condition at Discharge: Stable Plan - Discharge Summary Discharge Rx Participant: No New Discharge Prescriptions: New Colchicine [Colcrys] 0.6 mg PO BID each metroNIDAZOLE [Flagyl] 500 mg PO TID #90 tab Cyclobenzaprine [Flexeril] 10 mg PO TID PRN tab PRN Reason: Muscle Spasm Paliperidone [Invega] 3 mg PO HS tab Melatonin 3 mg PO HS tab predniSONE 10 mg PO DIRECTED #18 tab ceFAZolin [Kefzol] 2 gm IVP Q8HR 30 Days #90 each Escitalopram [Lexapro] 20 mg PO HS tab INSULIN ASPART (NovoLOG) [NovoLOG (formulary)] 8 unit SQ AC-TID each Pantoprazole Sodium [Protonix] 40 mg PO DAILY #30 tab Continue Atorvastatin [Lipitor] 80 mg PO HS@2100 Aspirin EC [Ecotrin Low Dose] 81 mg PO DAILY@0800 Ipratropium-Albuterol Nebulize [Duoneb 0.5 mg-3 mg/3 ml Soln] 3 ml INHALATION RT-QID@00,06,12,18 Clopidogrel Bisulfate [Plavix] 75 mg PO DAILY@0800 Famotidine [Pepcid] 20 mg PO BID@0800,1999 Acetaminophen [Tylenol] 650 mg PO QID PRN PRN Reason: Fever And/ Or Pain Albuterol Sulfate [Albuterol Sulfate Hfa] 1 - 2 puff INHALATION RT-Q4H PRN PRN Reason: Shortness Of Breath Isosorbide Mononitrate ER [Imdur] 30 mg PO DAILY@0800 Metoprolol Tartrate [Lopressor] 12.5 mg PO BID@0800,2000 Lactulose [Cephulac] 20 gm PO DAILY@0800 PRN #0 PRN Reason: Constipation Magic Butt Paste 1 applic TOPICAL BID Magnesium Hydroxide [Milk of Magnesia Concentrate] 7,200 mg PO DAILY PRN PRN Reason: Constipation ALPRAZolam [Xanax] 0.25 mg PO Q8H PRN #3 tab PRN Reason: Anxiety Ferrous Sulfate [Iron (65 MG Elemental)] 325 mg PO DAILY@0800 Topiramate [Topamax] 25 mg PO HS@2100 Dicyclomine 10mg/5ml Oral Solution 10 mg PO TID@0800,1200,1700 Nitroglycerin Sl Tabs [Nitrostat] 0.4 mg SL Q5M PRN PRN Reason: Chest Pain Sucralfate [Sucralfate Oral Susp] 1 gm PO ACHS@07,,163,2129 bisacodyL [Dulcolax] 10 mg RECTAL DAILY PRN PRN Reason: Constipation Na Phos,M-B/Na Phos,Di-Ba [Fleet Adult] 133 ml RECTAL DAILY PRN PRN Reason: Constipation INSULIN ASPART (NovoLOG) [NovoLOG (formulary)] See Protocol SQ ACHS@,,1629,2129 Lactobacillus Acidophilus [Acidophilus Probiotic] 1 cap PO BID@0800,1700 Sivakumar Packet 1 packet PO BID@0800,1700 Furosemide [Lasix] 40 mg PO BID@0600,1400 HYDROcodone/APAP 5-325MG [Kingman 5-325] 1 tab PO Q6HR PRN #4 tab PRN Reason: Moderate To Severe Pain (4-10) Changed Insulin Detemir (Levemir) [Levemir] 25 unit SQ BID #0 Discontinued Levofloxacin [Levaquin] 500 mg PO DAILY@0800 Discharge Medication List Aspirin EC [Ecotrin Low Dose] 81 mg PO DAILY@0801/12/19 [History] Atorvastatin [Lipitor] 80 mg PO HS@209901/12/19 [History] Clopidogrel Bisulfate [Plavix] 75 mg PO DAILY@0807/28/21 [History] Ferrous Sulfate [Iron (65 MG Elemental)] 325 mg PO DAILY@0807/28/21 [History] Ipratropium-Albuterol Nebulize [Duoneb 0.5 mg-3 mg/3 ml Soln] 3 ml INHALATION RT-QID@00,06,12,07/28/21 [History] Famotidine [Pepcid] 20 mg PO BID@0800,199903/18/22 [History] Topiramate [Topamax] 25 mg PO HS@209904/01/22 [History] Acetaminophen [Tylenol] 650 mg PO QID PRN 04/22/22 [History] Albuterol Sulfate [Albuterol Sulfate Hfa] 1 - 2 puff INHALATION RT-Q4H PRN 04/22/22 [History] Dicyclomine 10mg/5ml Oral Solution 10 mg PO TID@0800,1200,1700 07/06/22 [History] Isosorbide Mononitrate ER [Imdur] 30 mg PO DAILY@0800 07/06/22 [History] Nitroglycerin Sl Tabs [Nitrostat] 0.4 mg SL Q5M PRN 10/20/22 [History] Metoprolol Tartrate [Lopressor] 12.5 mg PO BID@0800,2000 12/08/22 [History] Sucralfate [Sucralfate Oral Susp] 1 gm PO ACHS@07,11,1630,2130 12/08/22 [History] Lactulose [Cephulac] 20 gm PO DAILY@0800 PRN #0 02/17/23 [Rx] Furosemide [Lasix] 40 mg PO BID@0600,1400 03/31/23 [History] INSULIN ASPART (NovoLOG) [NovoLOG (formulary)] See Protocol SQ ACHS@07,11,1630,212903/31/23 [History] Sivakumar Packet 1 packet PO BID@0800,1700 03/31/23 [History] Lactobacillus Acidophilus [Acidophilus Probiotic] 1 cap PO BID@0800,1700 03/31 [History] Magic Butt Paste 1 applic TOPICAL BID 03/31/23 [History] Magnesium Hydroxide [Milk of Magnesia Concentrate] 7,200 mg PO DAILY PRN 03/31/23 [History] Na Phos,M-B/Na Phos,Di-Ba [Fleet Adult] 133 ml RECTAL DAILY PRN 03/31/23 [History] bisacodyL [Dulcolax] 10 mg RECTAL DAILY PRN 03/31/23 [History] ALPRAZolam [Xanax] 0.25 mg PO Q8H PRN #3 tab 04/26/23 [Rx] Colchicine [Colcrys] 0.6 mg PO BID each 04/26/23 [Rx] Cyclobenzaprine [Flexeril] 10 mg PO TID PRN tab 04/26/23 [Rx] Escitalopram [Lexapro] 20 mg PO HS tab 04/26/23 [Rx] HYDROcodone/APAP 5-325MG [Kingman 5-325] 1 tab PO Q6HR PRN #4 tab 04/26/23 [Rx] INSULIN ASPART (NovoLOG) [NovoLOG (formulary)] 8 unit SQ AC-TID each 04/26/23 [Rx] Insulin Detemir (Levemir) [Levemir] 25 unit SQ BID #0 04/26/23 [Rx] Melatonin 3 mg PO HS tab 04/26/23 [Rx] Paliperidone [Invega] 3 mg PO HS tab 04/26/23 [Rx] Pantoprazole Sodium [Protonix] 40 mg PO DAILY #30 tab 04/26/23 [Rx] ceFAZolin [Kefzol] 2 gm IVP Q8HR 30 Days #90 each 04/26/23 [Rx] metroNIDAZOLE [Flagyl] 500 mg PO TID #90 tab 04/26/23 [Rx] predniSONE 10 mg PO DIRECTED #18 tab 04/26/23 [Rx] Follow up Appointment(s)/Referral(s): Simon Bautista MD [Primary Care Provider] - 1-2 days ([facility] please call for follow-up appointment.) Jessica Thompson MD [STAFF PHYSICIAN] - 05/10/23 1:15 pm Activity/Diet/Wound Care/Special Instructions: Patient is going to [facility] Activity as tolerated Continue monitoring Accu-Cheks before meals and at bedtime along with 2 AM and continue with sliding scale along with pre-meal insulin and long-acting area may need to adjust once tapering steroids are finished Continue tapering steroids continue IV antibiotic therapy along with oral antibiotics in the form of cefazolin and Flagyl per ID recommendations for 4 weeks Continue with wound care to the left lower extremity and elevating while at rest Discharge Disposition: TRANSFER TO SNF/ECF
--- NOTE | 2023-04-26 13:24 | P.PN ---
Subjective Progress Note Date: 04/26/23 CHIEF COMPLAINT: Anemia HISTORY OF PRESENT ILLNESS: Patient is status post colonoscopy which revealed normal findings. Patient status post EGD revealing erosive gastritis. Biopsy result revealing iron pill gastritis. Patient having bowel movements. No bleeding reported. Hemoglobin stable 9.4 patient received insurance authorization. Scheduled for discharge to [facility] today. PHYSICAL EXAM: VITAL SIGNS: Reviewed. GENERAL: Well-developed in no acute distress. ABDOMEN: Soft. Nondistended. Nontender. ASSESSMENT: 1. Anemia 2. Status post EGD revealing erosive gastritis and Colonoscopy was normal PLAN: -Continue Protonix -Continue supportive care -Okay for discharge from surgical standpoint when medically cleared Physician Hyper[employer] Developer note has been reviewed by physician. Signing provider agrees with the documented findings, assessment, and plan of care. Objective - Vital Signs Vital signs: Vital Signs Temp 97.7 F 04/26/23 07:58 Pulse 68 04/26/23 11:17 Resp 18 04/26/23 08:00 BP 128/75 04/26/23 07:58 Pulse Ox 100 04/26/23 07:58 FiO2 Intake & Output 04/25/23 04/26/23 04/26/23 18:59 06:59 18:59 Intake Total 840 Output Total 2250 1900 525 Balance -1410 -1900 -525 Intake: Oral 840 Output: Urine 2250 1900 525 Other: Voiding Method Diaper Diaper Diaper Incontinent Incontinent Incontinent External Catheter External Catheter External Catheter # Bowel Movements 1 1 1 - Labs CBC & Chem 7: 04/26/23 07:06 04/26/23 07:06 Labs: Abnormal Lab Results - Last 24 Hours (Table) 04/25/23 04/25/23 04/26/23 Range/Units 17:21 19:45 07:06 RBC 3.24 L (4.40-5.60) X 10*6/uL Hgb 9.4 L (13.0-17.0) g/dL Hct 30.8 L (39.6-50.0) % MCHC 30.5 L (32.0-37.0) g/dL RDW 16.8 H (11.5-14.5) % Immature Gran # 0.06 H (0.00-0.04) X 10*3/uL Neutrophils # 7.77 H (1.80-7.70) X 10*3/uL Lymphocytes # 0.65 L (0.90-5.00) X 10*3/uL Eosinophils # 0.02 L (0.04-0.35) X 10*3/uL BUN (9.0-27.0) mg/dL BUN/Creatinine Ratio (12.00-20.00) Ratio Glucose (70-110) mg/dL POC Glucose (mg/dL) 227 H 260 H (70-110) mg/dL 04/26/23 04/26/23 Range/Units 07:06 11:57 RBC (4.40-5.60) X 10*6/uL Hgb (13.0-17.0) g/dL Hct (39.6-50.0) % MCHC (32.0-37.0) g/dL RDW (11.5-14.5) % Immature Gran # (0.00-0.04) X 10*3/uL Neutrophils # (1.80-7.70) X 10*3/uL Lymphocytes # (0.90-5.00) X 10*3/uL Eosinophils # (0.04-0.35) X 10*3/uL BUN 59.6 H (9.0-27.0) mg/dL BUN/Creatinine Ratio 54.18 H (12.00-20.00) Ratio Glucose 126 H (70-110) mg/dL POC Glucose (mg/dL) 153 H (70-110) mg/dL
--- NOTE | 2023-05-03 14:24 | P.PN ---
Subjective Progress Note Date: 04/26/23 Principal diagnosis: Reason for follow-up is left diabetic foot ulcer with recent culture positive for MSSA and anaerobes Patient is a 67-year-old male with a past medical history significant for hypertension hyperlipidemia SC diabetes mellitus dementia patient was rece ntly admitted to this facility with left fifth toe gangrene status post amputation he did have a Morganella bacteremia at that point the patient completed his antibiotic therapy patient to follow at [facility] apparently the patient have a culture done on 03/24/2023 that grew MSSA and anaerobes patient not very clear if he received any treatment for the presenting to the hospital with hemoglobin of 6.3 On today's evaluation that is 04/26/2023, the patient continues to be afebrile, the patient is breathing comfortably on 2 L nasal cannula oxygen, the patient denies any chest pain shortness of breath or any cough , patient denies any nausea/vomiting abdominal pain or diarrhea, the patient denies pain to the left foot wound area, no new symptoms Patient white count normalized to 9.03 creatinine is 1.1, blood culture this admission has been negative Objective - Vital Signs Vital signs: Vital Signs Temp 97.7 F 04/26/23 07:58 Pulse 68 04/26/23 11:17 Resp 18 04/26/23 08:00 BP 128/75 04/26/23 07:58 Pulse Ox 100 04/26/23 07:58 FiO2 Intake & Output 04/25/23 04/26/23 04/26/23 18:59 06:59 18:59 Intake Total 840 Output Total 2250 1900 525 Balance -1410 -1900 -525 Intake: Oral 840 Output: Urine 2250 1900 525 Other: Voiding Method Diaper Diaper Diaper Incontinent Incontinent Incontinent External Catheter External Catheter External Catheter # Bowel Movements 1 1 1 - Exam GENERAL DESCRIPTION: An elderly male lying in bed in no distress RESPIRATORY SYSTEM: Unlabored breathing , decreased breath sounds at bases HEART: S1 S2 regular rate and rhythm , ABDOMEN: Soft , no tenderness EXTREMITIES: Left fifth toe amputation site wound is covered with a wound VAC - Labs CBC & Chem 7: 04/26/23 07:06 04/26/23 07:06 Labs: Abnormal Lab Results - Last 24 Hours (Table) 04/25/23 04/25/23 04/26/23 Range/Units 17:21 19:45 07:06 RBC 3.24 L (4.40-5.60) X 10*6/uL Hgb 9.4 L (13.0-17.0) g/dL Hct 30.8 L (39.6-50.0) % MCHC 30.5 L (32.0-37.0) g/dL RDW 16.8 H (11.5-14.5) % Immature Gran # 0.06 H (0.00-0.04) X 10*3/uL Neutrophils # 7.77 H (1.80-7.70) X 10*3/uL Lymphocytes # 0.65 L (0.90-5.00) X 10*3/uL Eosinophils # 0.02 L (0.04-0.35) X 10*3/uL BUN (9.0-27.0) mg/dL BUN/Creatinine Ratio (12.00-20.00) Ratio Glucose (70-110) mg/dL POC Glucose (mg/dL) 227 H 260 H (70-110) mg/dL 04/26/23 04/26/23 Range/Units 07:06 11:57 RBC (4.40-5.60) X 10*6/uL Hgb (13.0-17.0) g/dL Hct (39.6-50.0) % MCHC (32.0-37.0) g/dL RDW (11.5-14.5) % Immature Gran # (0.00-0.04) X 10*3/uL Neutrophils # (1.80-7.70) X 10*3/uL Lymphocytes # (0.90-5.00) X 10*3/uL Eosinophils # (0.04-0.35) X 10*3/uL BUN 59.6 H (9.0-27.0) mg/dL BUN/Creatinine Ratio 54.18 H (12.00-20.00) Ratio Glucose 126 H (70-110) mg/dL POC Glucose (mg/dL) 153 H (70-110) mg/dL Assessment and Plan (1) MSSA (methicillin susceptible Staphylococcus aureus) infection Status: Acute Code(s): A49.01 - METHICILLIN SUSCEP STAPH INFECTION, UNSP SITE SNOMED Code(s): 764875325 (2) Diabetic infection of left foot Status: Acute Code(s): E11.628 - TYPE 2 DIABETES MELLITUS WITH OTHER SKIN COMPLICATIONS; L08.9 - LOCAL INFECTION OF THE SKIN AND SUBCUTANEOUS TISSUE, UNSP SNOMED Code(s): 52158493 (3) Type 2 diabetes mellitus with foot ulcer Status: Acute Code(s): E11.621 - TYPE 2 DIABETES MELLITUS WITH FOOT ULCER; L97.509 - NON-PRESSURE CHRONIC ULCER OTH PRT UNSP FOOT W UNSP SEVERITY SNOMED Code(s): 766919962 Plan: 1patient with a chronic nonhealing wound to the left foot lateral border in this patient who did have a history of left fifth toe gangrene status post amputation back on February 09, 2023 at that point he did have Morganella bacteremia and local culture positive for Enterococcus and Morganella for the patient has completed course of IV antibiotic therapy, patient now with a nonhealing wound and he did have a culture from the same area growing MSSA and anaerobic gram-positive cocci 2patient did have mild elevated inflammatory markers with a sed rate of 42. 3patient remains to be afebrile the patient white count has normalized 4-patient to continue cefazolin Flagyl for his left diabetic foot infection, plan is for 4 weeks on discharge along with weekly monitoring of CRP and sed rate and close outpatient follow-up local wound care to continue with the wound VAC, Dictation was produced using [employer] dictation software. please excuse any grammatical, word or spelling errors. Time with Patient: Less than 30
--- NOTE | 2023-05-06 07:41 | P.OP ---
Date of Procedure: 04/14/23 Description of Procedure: Date of Procedure: Preoperative Diagnosis: Need for long-term IV antibiotic access. Postoperative Diagnosis: Same. Procedure(s) Performed: Ultrasound-guided cannulation of left upper extremity basilic vein. Insertion of peripherally inserted central catheter under fluoroscopic guidance. Anesthesia: local (1% Xylocaine.) Surgeon: Deja Estimated Blood Loss (ml): 5 IV fluids (ml): 0 Urine output (ml): 0 Pathology: none sent Condition: stable Disposition: no change Indications for Procedure: Patient is a patient will require long-term IV antibiotics as an outpatient patient is offered a PICC line to allow for intravenous administration of antibiotics. Description of Procedure: Patient was brought to the special procedure suite. The upper extremity sterilely prepped and draped in usual manner. Ultrasound was utilized to identify the basilic vein which was normally compressible free of visible thrombus. Permenant image was stored. 1% Xylocaine was utilized for local anesthesia tissues overlying the vein. Through this anesthetized area and with the aid of ultrasound a micropuncture needle was utilized to cannulate the vein. Once cannulated, Softip guidewire was advanced into the vein. The needle was withdrawn and a micropuncture sheath and dilator advanced over the guidewire. The guidewire was withdrawn and exchanged for the PICC guidewire and measured at 55 cm to the cavoatrial junction. The catheter was cut to size and advanced into the cavoatrial junction without resistance. The sheath was peeled away. Blood was easily withdrawn through the catheter and the catheter was then flushed with heparinized saline solution and secured to the skin. Patient tolerated procedure well and was returned to their room in satisfactory and stable condition.
== END 2023-04-26 15:39 | DRG 378 ==
LOC: EC 17:01 → EEVIPCON 17:01 → 5NMEDONC 20:28 → OBSVTOIN 20:29 → 5NMEDONC 21:02
PROVIDERS: ADMIT Hospitalist; ATTEND Hospitalist
PROC: 30233N1 Transfusion of Nonautologous Red Blood Cells into Peripheral Vein, Percutaneous Approach (ICD-10-PCS; 2023-04-09)
PROC: 0DB78ZX Excision of Stomach, Pylorus, Via Natural or Artificial Opening Endoscopic, Diagnostic (ICD-10-PCS; principal; 2023-04-12 08:00)
PROC: 0DJD8ZZ Inspection of Lower Intestinal Tract, Via Natural or Artificial Opening Endoscopic (ICD-10-PCS; 2023-04-15)
PROC: 02HV33Z Insertion of Infusion Device into Superior Vena Cava, Percutaneous Approach (ICD-10-PCS; 2023-04-16)
PROC: B5181ZA Fluoroscopy of Superior Vena Cava using Low Osmolar Contrast, Guidance (ICD-10-PCS; 2023-04-16)
PROC: B548ZZA Ultrasonography of Superior Vena Cava, Guidance (ICD-10-PCS; 2023-04-16)
DX: K29.61 Other gastritis with bleeding (principal); D62 Acute posthemorrhagic anemia; J96.11 Chronic respiratory failure with hypoxia; I42.9 Cardiomyopathy, unspecified; R45.851 Suicidal ideations; L03.116 Cellulitis of left lower limb; T87.44 Infection of amputation stump, left lower extremity; K57.30 Diverticulosis of large intestine without perforation or abscess without bleeding; F29 Unspecified psychosis not due to a substance or known physiological condition; I11.0 Hypertensive heart disease with heart failure; I25.2 Old myocardial infarction; I50.9 Heart failure, unspecified; B95.61 Methicillin susceptible Staphylococcus aureus infection as the cause of diseases classified elsewhere; Z88.8 Allergy status to other drugs, medicaments and biological substances; E66.9 Obesity, unspecified; Z68.30 Body mass index [BMI] 30.0-30.9, adult; M10.9 Gout, unspecified; E78.5 Hyperlipidemia, unspecified; I25.10 Atherosclerotic heart disease of native coronary artery without angina pectoris; E11.621 Type 2 diabetes mellitus with foot ulcer; E11.51 Type 2 diabetes mellitus with diabetic peripheral angiopathy without gangrene; E11.628 Type 2 diabetes mellitus with other skin complications; E11.69 Type 2 diabetes mellitus with other specified complication; F20.9 Schizophrenia, unspecified; T87.89 Other complications of amputation stump; F32.A Depression, unspecified; H91.90 Unspecified hearing loss, unspecified ear; Z87.01 Personal history of pneumonia (recurrent); L97.529 Non-pressure chronic ulcer of other part of left foot with unspecified severity; Z53.09 Procedure and treatment not carried out because of other contraindication; Z79.02 Long term (current) use of antithrombotics/antiplatelets; Z79.82 Long term (current) use of aspirin; Z79.4 Long term (current) use of insulin; Z79.899 Other long term (current) drug therapy; Z85.841 Personal history of malignant neoplasm of brain; Z99.81 Dependence on supplemental oxygen; Z89.511 Acquired absence of right leg below knee; Z98.42 Cataract extraction status, left eye; Z98.41 Cataract extraction status, right eye; Y84.8 Other medical procedures as the cause of abnormal reaction of the patient, or of later complication, without mention of misadventure at the time of the procedure; E11.65 Type 2 diabetes mellitus with hyperglycemia; T45.4X5A Adverse effect of iron and its compounds, initial encounter; X58.XXXA Exposure to other specified factors, initial encounter
CPT/HCPCS: 36415; 36430; 36573; 43239; 45378; 71045; 80048; 80053; 82272; 82728; 82747; 83540; 83550; 83735; 83880; 84550; 85025; 85027; 85610; 85652; 85730; 86140; 86850; 86900; 86901; 86920; 87040; 88305; 88313; 93005; 94640; 94760; 96374; 99291

== ENCOUNTER → 2023-08-25 | Outpatient (CLI) | payer OTHER ==
--- NOTE | 2023-08-25 10:50 | XR ---
EXAMINATION TYPE: XR chest 2V DATE OF EXAM: 08/25/2023 COMPARISON: 04/19/2023 HISTORY: 68-year-old male Z98.818 Pre dental extraction imaging TECHNIQUE: Frontal and lateral views FINDINGS: Heart is upper limits of normal size. Aorta and pulmonary vasculature within normal limits. Focal ban dlike opacity right midlung probably scarring. Otherwise, no consolidation or pleural effusion seen. Hazy densities related to patient body habitus. IMPRESSION: Suspect some strandy scarring or atelectasis at the right midlung. No definite acute process.
== END | disposition home or self-care (01) ==
LOC: RADXRMAIN 09:47
PROVIDERS: ATTEND Internal Medicine Hospice and Palliative Medicine
DX: Z98.818 Other dental procedure status (principal)
CPT/HCPCS: 71046

== ENCOUNTER 2023-08-27 20:18 | Inpatient (IN) | payer OTHER ==
[2023-08-27 21:11] LABS: Basophils % (A) 0 %; Eosinophils # (A) 0.4 k/uL (0-0.7); Eosinophils % (A) 5 %; HGB 6.5 gm/dL (13.0-17.5); Lymphocytes # (A) 1.3 k/uL (1.0-4.8); Lymphocytes % (A) 15 %; MCH 31.9 pg (25.0-35.0); MCHC 33.7 g/dL (31.0-37.0); MCV 94.6 fL (80.0-100.0); Mean Platelet Volume 8.1; Monocytes # (A) 0.5 k/uL (0-1.0); Monocytes % (A) 6 %; Neutrophils # (A) 6.3 k/uL (1.3-7.7); Neutrophils % (A) 73 %; Platelet Count 221 k/uL (150-450); RBC 2.05 m/uL (4.30-5.90); WBC 8.7 k/uL (3.8-10.6)
[2023-08-27 21:12] LABS: HCT 19.4 % (39.0-53.0)
[2023-08-27 21:22] LABS: INR 0.9 (<1.2); Partial Thromboplastin Time 25.5 sec (22.0-30.0); Prothrombin Time 10.2 sec (10.0-12.5)
--- NOTE | 2023-08-27 21:23 | ED ---
GI Bleed HPI - General Chief complaint: GI Bleed Stated complaint: Possible GI bleed Time Seen by Provider: 08/27/23 20:20 Source: patient, EMS, RN notes reviewed, old records reviewed Mode of arrival: EMS Limitations: altered mental status, physical limitation - History of Present Illness Initial comments: This is a 68-year-old male to ER for evaluation of dark stools and weakness, downtrending hemoglobin. Patient himself has no complaints. Patient sent to ER for outpatient lab values being abnormal MD complaint: melena, blood streaked stool -: days(s) Quality: painless Consistency: constant Improves with: none Worsens with: none Associated Symptoms: denies other symptoms - Related Data Home Medications Medication Instructions Recorded Confirmed Atorvastatin [Lipitor] 80 mg PO HS@2100 01/12/19 08/28/23 Clopidogrel Bisulfate [Plavix] 75 mg PO DAILY 07/28/21 08/28/23 Ferrous Sulfate [Iron (65 MG 325 mg PO DAILY 07/28/21 08/28/23 Elemental)] Ipratropium-Albuterol Nebulize 3 ml INHALATION RT-Q6H PRN 07/28/21 08/28/23 [Duoneb 0.5 mg-3 mg/3 ml Soln] Famotidine [Pepcid] 20 mg PO BID 03/18/22 08/28/23 Topiramate [Topamax] 25 mg PO HS 04/01/22 08/28/23 Acetaminophen [Tylenol] 650 mg PO Q6H PRN 04/22/22 08/28/23 Albuterol Sulfate [Albuterol 1 - 2 puff INHALATION RT-Q4H PRN 04/22/22 08/28/23 Sulfate Hfa] Dicyclomine 10mg/5ml Oral Solution 10 mg PO TID 07/06/22 08/28/23 Isosorbide Mononitrate ER [Imdur] 30 mg PO DAILY 07/06/22 08/28/23 Nitroglycerin Sl Tabs [Nitrostat] 0.4 mg SL Q5M PRN 10/20/22 08/28/23 Metoprolol Tartrate [Lopressor] 12.5 mg PO BID 12/08/22 08/28/23 Furosemide [Lasix] 40 mg PO DAILY 03/31/23 08/28/23 Lactobacillus Acidophilus 1 cap PO BID 03/31/23 08/28/23 [Acidophilus Probiotic] Albuterol Nebulized [Ventolin 2.5 mg INHALATION RT-Q6H PRN 08/28/23 08/28/23 Nebulized] Amino Acids/Protein Hydrolys 30 ml PO BID 08/28/23 08/28/23 [Pro-Stat Awc Liquid] Aspirin 81 mg PO DAILY 08/28/23 08/28/23 Benzonatate [Tessalon Perles] 100 mg PO Q8H PRN 08/28/23 08/28/23 Cholecalciferol [Vitamin D3 (25 125 mcg PO DAILY 08/28/23 08/28/23 Mcg = 1000 Iu)] Ciprofloxacin HCl [Cipro] 250 mg PO Q12HR@0800,199908/28/23 08/28/23 Colchicine [Colcrys] 0.6 mg PO HS 08/28/23 08/28/23 Collagenase [Santyl Ointment] 1 applic TOPICAL HS 08/28/23 08/28/23 Cyclobenzaprine [Flexeril] 10 mg PO Q8H PRN 08/28/23 08/28/23 Dapagliflozin Propanediol [Farxiga] 10 mg PO DAILY 08/28/23 08/28/23 Insulin Glargine,Hum.rec.anlog 25 units SQ HS 08/28/23 08/28/23 [Lantus Solostar Pen] Insulin Glargine,Hum.rec.anlog 32 units SQ DAILY 08/28/23 08/28/23 [Lantus Solostar Pen] Lactulose [Cephulac] 20 gm PO DAILY PRN 08/28/23 08/28/23 Naloxone HCl [Narcan] 4 mg NASAL DIRECTED PRN 08/28/23 08/28/23 Sucralfate [Carafate] 1 gm PO Q6H 08/28/23 08/28/23 diphenhydrAMINE & Zinc Cream 1 applic TOPICAL BID 08/28/23 08/28/23 [Benadryl Cream] Previous Rx's Medication Instructions Recorded Escitalopram [Lexapro] 20 mg PO HS tab 04/26/23 Melatonin 3 mg PO HS tab 04/26/23 Paliperidone [Invega] 3 mg PO HS tab 01/15/24 Pantoprazole Sodium [Protonix] 40 mg PO DAILY #30 tab 04/26/23 HYDROcodone/APAP 5-325MG [[place] 1 tab PO Q6HR PRN #4 tab 08/30/23 5-325] Allergies Allergy/AdvReac Type Severity Reaction Status Date / Time furosemide [From Lasix] AdvReac Unknown Verified 08/28/23 10:21 sacubitril [From Entresto] AdvReac made him Verified 08/28/23 10:21 hypotensive valsartan [From Entresto] AdvReac made him Verified 08/28/23 10:21 hypotensive Review of Systems ROS Statement: Those systems with pertinent positive or pertinent negative responses have been documented in the HPI. ROS Other: All systems not noted in ROS Statement are negative. Past Medical History Past Medical History: Cancer, Heart Failure, COPD, Dementia, Diabetes Mellitus, GERD/Reflux, Hearing Disorder / Deafness, Hyperlipidemia, Hypertension, Myocardial Infarction (LA), Osteoarthritis (OA), Pneumonia Additional Past Medical History / Comment(s): Brain CA (30 years ago) in remission. 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 Mother Additional Family Medical History / Comment(s): Mother had a bad heart. General Exam Limitations: altered mental status, physical limitation General appearance: alert, in no apparent distress Head exam: Present: atraumatic, normocephalic, normal inspection Eye exam: Present: normal appearance, PERRL, EOMI. Absent: scleral icterus, conjunctival injection, periorbital swelling ENT exam: Present: normal exam, mucous membranes moist Neck exam: Present: normal inspection. Absent: tenderness, meningismus, lymphadenopathy Respiratory exam: Present: normal lung sounds bilaterally. Absent: respiratory distress, wheezes, rales, rhonchi, stridor Cardiovascular Exam: Present: regular rate, normal rhythm, normal heart sounds. Absent: systolic murmur, diastolic murmur, rubs, gallop, clicks GI/Abdominal exam: Present: soft, normal bowel sounds. Absent: distended, tenderness, guarding, rebound, rigid Extremities exam: Present: normal inspection, full ROM, normal capillary refill. Absent: tenderness, pedal edema, joint swelling, calf tenderness Back exam: Present: normal inspection Neurological exam: Present: alert, oriented X3, CN II-XII intact Psychiatric exam: Present: normal affect, normal mood Skin exam: Present: warm, dry, intact, normal color. Absent: rash Course Vital Signs 08/27/23 08/28/23 08/28/23 20:25 00:28 00:38 Temperature 98.5 F 98.8 F Pulse Rate 77 81 88 Respiratory 16 18 18 Rate Blood Pressure 134/64 170/78 149/80 O2 Sat by Pulse 100 99 100 Oximetry 08/28/23 08/28/23 08/28/23 00:41 01:01 01:30 Temperature 98.7 F 98.8 F 98.7 F Pulse Rate 88 79 85 Respiratory 19 16 18 Rate Blood Pressure 154/80 154/78 164/80 O2 Sat by Pulse 100 100 100 Oximetry 08/28/23 08/28/23 08/28/23 02:00 03:00 03:15 Temperature 98.7 F 98.7 F 98.8 F Pulse Rate 89 87 85 Respiratory 16 16 16 Rate Blood Pressure 163/81 164/81 152/74 O2 Sat by Pulse 100 100 100 Oximetry 08/28/23 08/28/23 08/28/23 06:23 07:55 08:25 Temperature 98.3 F Pulse Rate 90 89 90 Respiratory 20 18 18 Rate Blood Pressure 129/75 145/72 O2 Sat by Pulse 96 97 98 Oximetry 08/28/23 08/28/23 08/28/23 10:00 12:00 14:15 Temperature 98.5 F Pulse Rate 85 86 82 Respiratory 18 18 16 Rate Blood Pressure 153/84 170/78 153/74 O2 Sat by Pulse 97 96 Oximetry 08/28/23 08/28/2324 14:32 14:52 15:57 Temperature 98.8 F 98.5 F Pulse Rate 82 82 86 Respiratory 20 18 18 Rate Blood Pressure 153/82 154/75 171/78 O2 Sat by Pulse 100 100 99 Oximetry - Reevaluation(s) Reevaluation #1: 08/27/23 23:20 Medical records reviewed Reevaluation #2: 08/27/23 23:20 Patient symptoms unchanged Reevaluation #3: 08/27/23 23:21 Patient informed of results questions answered Reevaluation #4: Was pt. sent in by a medical professional or institution (, [facility]NGELA, [employer], urgent care, hospital, or group home...) When possible be specific @ -no Did you speak to anyone other than the patient for history (EMS, parent, family, police, friend...)? What history was obtained from this source @ -no Did you review nursing and triage notes (agree or disagree)? Why? @ -agree Are old charts reviewed (outside hosp., previous admission, EMS record, old EKG, old radiological studies, urgent care reports/EKG's, group home records)? Report findings @ -yes Differential Diagnosis (chest pain, altered mental status, abdominal pain women, abdominal pain men, vaginal bleeding, weakness, fever, dyspnea, syncope, he adache, dizziness, GI bleed, back pain, seizure, CVA, palpatations, mental health, musculoskeletal)? @ -prior EKG interpreted by me (3pts min.). @ -no X-rays interpreted by me (1pt min.). @ -Yes negative for acute disease CT interpreted by me (1pt min.). @ -no U/S interpreted by me (1pt. min.). @ -no What testing was considered but not performed or refused? (CT, X-rays, U/S, labs)? Why? @ -none What meds were considered but not given or refused? Why? @ -none Did you discuss the management of the patient with other professionals (professionals i.e. ÁNGELA Whitmore, [employer], lab, RT, psych nurse, social insurance specialist, criminal lawyer, teacher, sales and service officer, case worker)? Give summary @ -no Was smoking cessation discussed for >3mins.? @ -no Was critical care preformed (if so, how long)? @ -yes31 Were there social determinants of health that impacted care today? How? (Homelessness, low income, unemployed, alcoholism, drug addiction, transportation, low edu. Level, literacy, decrease access to med. care, group home, rehab)? @ -none Was there de-escalation of care discussed even if they declined (Discuss DNR or withdrawal of care, Hospice)? DNR status @ -no What co-morbidities impacted this encounter? (DM, HTN, Smoking, COPD, CAD, Cancer, CVA, ARF, Chemo, Hep., AIDS, mental health diagnosis, sleep apnea, morbid obesity)? @ -none Was patient admitted / discharged? Hospital course, mention meds given and route, prescriptions, significant lab abnormalities, going to OR and other pertinent info. @ - 68 male to ER for evaluation of dark stools significant anemia and will admit for blood transfusion hemodynamically stable with no acute change in symptoms Admitted Undiagnosed new problem with uncertain prognosis? @ -no Drug Therapy requiring intensive monitoring for toxicity (Heparin, Nitro, Insuli n, Cardizem)? @ -no Were any procedures done? @ -no Diagnosis/symptom? @ -Anemia and need for transfusion weakness GI bleed Acute, or Chronic, or Acute on Chronic? @ -Acute Uncomplicated (without systemic symptoms) or Complicated (systemic symptoms)? @ -Complicated Side effects of treatment? @ -no Exacerbation, Progression, or Severe Exacerbation? @ -exacerbation Poses a threat to life or bodily function? How? (Chest pain, USA, LA, pneumonia, PE, COPD, DKA, ARF, appy, cholecystitis, CVA, Diverticulitis, Homicidal, Suicidal, threat to staff... and all critical care pts) @ -yes with significant chronic comorbidities Reevaluation #5: Differential GI Bleed: Esophageal varices, aortoenteric fistula, Lesly-Saab, gastritis, peptic ulcer disease, diverticulosis, inflammatory bowel disease, hemorrhoids, fissure, colitis, malignancy, Meckels diverticulum, this is not meant to be an all- inclusive list. - Consultations [facility] Medical Decision Making - Medical Decision Making 68 male to ER for evaluation of dark stools significant anemia and will admit for blood transfusion hemodynamically stable with no acute change in symptoms - Lab Data Result diagrams: 08/29/23 06:00 08/30/23 10:19 Lab Results 08/27/23 08/27/23 08/27/23 Range/Units 20:55 21:01 21:01 WBC 8.7 (3.8-10.6) k/uL RBC 2.05 L (4.30-5.90) m/uL Hgb 6.5 L* (13.0-17.5) gm/dL Hct 19.4 L* (39.0-53.0) % MCV 94.6 (80.0-100.0) fL MCH 31.9 (25.0-35.0) pg MCHC 33.7 (31.0-37.0) g/dL RDW 15.0 (11.5-15.5) % Plt Count 221 (150-450) k/uL MPV 8.1 Neutrophils % 73 % Lymphocytes % 15 % Monocytes % 6 % Eosinophils % 5 % Basophils % 0 % Neutrophils # 6.3 (1.3-7.7) k/uL Lymphocytes # 1.3 (1.0-4.8) k/uL Monocytes # 0.5 (0-1.0) k/uL Eosinophils # 0.4 (0-0.7) k/uL Basophils # 0.0 (0-0.2) k/uL PT 10.2 (10.0-12.5) sec INR 0.9 (<1.2) APTT 25.5 (22.0-30.0) sec Sodium (137-145) mmol/L Potassium (3.5-5.1) mmol/L Chloride (98-107) mmol/L Carbon Dioxide (22-30) mmol/L Anion Gap mmol/L BUN (9-20) mg/dL Creatinine (0.66-1.25) mg/dL Est GFR (CKD-EPI)AfAm (>60 ml/min/1.73 sqM) Est GFR (CKD-EPI)NonAf (>60 ml/min/1.73 sqM) Glucose (74-99) mg/dL Calcium (8.4-10.2) mg/dL Total Bilirubin (0.2-1.3) mg/dL AST (17-59) U/L ALT (4-49) U/L Alkaline Phosphatase (38-126) U/L Total Protein (6.3-8.2) g/dL Albumin (3.5-5.0) g/dL Blood Type O Positive Blood Type Recheck O Pos Bld Type Recheck Status No Antibody Screen NEGATIVE Crossmatch See Detail Spec Expiration Date 08/30/2023 - 235408/27/23 Range/Units 21:01 WBC (3.8-10.6) k/uL RBC (4.30-5.90) m/uL Hgb (13.0-17.5) gm/dL Hct (39.0-53.0) % MCV (80.0-100.0) fL MCH (25.0-35.0) pg MCHC (31.0-37.0) g/dL RDW (11.5-15.5) % Plt Count (150-450) k/uL MPV Neutrophils % % Lymphocytes % % Monocytes % % Eosinophils % % Basophils % % Neutrophils # (1.3-7.7) k/uL Lymphocytes # (1.0-4.8) k/uL Monocytes # (0-1.0) k/uL Eosinophils # (0-0.7) k/uL Basophils # (0-0.2) k/uL PT (10.0-12.5) sec INR (<1.2) APTT (22.0-30.0) sec Sodium 141 (137-145) mmol/L Potassium 3.6 (3.5-5.1) mmol/L Chloride 108 H (98-107) mmol/L Carbon Dioxide 25 (22-30) mmol/L Anion Gap 8 mmol/L BUN 70 H (9-20) mg/dL Creatinine 1.39 H (0.66-1.25) mg/dL Est GFR (CKD-EPI)AfAm 61 (>60 ml/min/1.73 sqM) Est GFR (CKD-EPI)NonAf 53 (>60 ml/min/1.73 sqM) Glucose 173 H (74-99) mg/dL Calcium 8.6 (8.4-10.2) mg/dL Total Bilirubin 0.3 (0.2-1.3) mg/dL AST 33 (17-59) U/L ALT 48 (4-49) U/L Alkaline Phosphatase 141 H (38-126) U/L Total Protein 5.8 L (6.3-8.2) g/dL Albumin 3.0 L (3.5-5.0) g/dL Blood Type Blood Type Recheck Bld Type Recheck Status Antibody Screen Crossmatch Spec Expiration Date - EKG Data -: EKG Interpreted by Me - Radiology Data Radiology results: report reviewed (Chest x-ray is negative for acute disease), image reviewed Critical Care Time Critical Care Time: Yes Total Critical Care Time: 31 Disposition Clinical Impression: Altered mental status, Acute renal insufficiency, Weakness, Acute kidney injury, Debility, Anemia Disposition: ADMITTED IP TO THIS [facility] Condition: Fair Time of Disposition: 22:00
[2023-08-27 21:26] LABS: ALT 48 U/L (4-49); AST 33 U/L (17-59); African American GFR (CKD) 61 (>60 ml/min/1.73 sqM); Alkaline Phosphatase 141 U/L (38-126); Anion Gap 8 mmol/L; Blood Urea Nitrogen 70 mg/dL (9-20); Calcium 8.6 mg/dL (8.4-10.2); Carbon Dioxide 25 mmol/L (22-30); Chloride 108 mmol/L (98-107); Glucose 173 mg/dL (74-99); Non-African American GFR(CKD) 53 (>60 ml/min/1.73 sqM); Potassium 3.6 mmol/L (3.5-5.1); Sodium 141 mmol/L (137-145); Total Bilirubin 0.3 mg/dL (0.2-1.3); Total Protein 5.8 g/dL (6.3-8.2)
[2023-08-27] MEDS ORDERED: ONDANSETRON 4 MG/2 ML VIAL IVP PRN (21:57)
[2023-08-27] MEDS ORDERED: NALOXONE 0.4 MG/ML 1 ML VIAL IV PRN (21:57)
[2023-08-28] MEDS: SODIUM CHLORIDE 0.9% 1,000 ML IV STA (00:34)
[2023-08-28] MEDS: PANTOPRAZOLE 40 MG/10 ML VIAL IV SCH (00:35)
[2023-08-28] MEDS: SODIUM CHLORIDE 0.9% 500 ML 500 ML IV STA (00:35)
[2023-08-28] MEDS: SODIUM CHLORIDE 0.9% 1,000 ML IV SCH (00:35)
[2023-08-28 08:22] LABS: Basophils % (A) 0 %; Eosinophils # (A) 0.4 k/uL (0-0.7); Eosinophils % (A) 5 %; HCT 21.8 % (39.0-53.0); HGB 7.2 gm/dL (13.0-17.5); Lymphocytes # (A) 1.2 k/uL (1.0-4.8); Lymphocytes % (A) 15 %; MCH 31.3 pg (25.0-35.0); MCHC 33.1 g/dL (31.0-37.0); MCV 94.6 fL (80.0-100.0); Mean Platelet Volume 7.9; Monocytes # (A) 0.6 k/uL (0-1.0); Monocytes % (A) 7 %; Neutrophils # (A) 5.9 k/uL (1.3-7.7); Neutrophils % (A) 72 %; Platelet Count 208 k/uL (150-450); RDW 15.3 % (11.5-15.5); WBC 8.3 k/uL (3.8-10.6)
[2023-08-28 09:45] LABS: ALT 42 U/L (4-49); AST 27 U/L (17-59); African American GFR (CKD) 77 (>60 ml/min/1.73 sqM); Albumin 2.6 g/dL (3.5-5.0); Alkaline Phosphatase 126 U/L (38-126); Anion Gap 5 mmol/L; Blood Urea Nitrogen 52 mg/dL (9-20); Calcium 8.5 mg/dL (8.4-10.2); Carbon Dioxide 26 mmol/L (22-30); Chloride 110 mmol/L (98-107); Glucose 109 mg/dL (74-99); Magnesium 2.2 mg/dL (1.6-2.3); Non-African American GFR(CKD) 66 (>60 ml/min/1.73 sqM); Phosphorus 3.9 mg/dL (2.5-4.5); Potassium 3.5 mmol/L (3.5-5.1); Sodium 141 mmol/L (137-145); Total Bilirubin 0.7 mg/dL (0.2-1.3); Total Protein 5.3 g/dL (6.3-8.2)
[2023-08-28] MEDS ORDERED: MELATONIN 3 MG TABLET PO PRN (13:10)
[2023-08-28] MEDS ORDERED: ACETAMINOPHEN TAB 325 MG TAB PO PRN (13:10)
[2023-08-28] MEDS ORDERED: CYCLOBENZAPRINE 5 MG TAB PO PRN (13:10)
[2023-08-28] MEDS ORDERED: NITROGLYCERIN SL TABS 0.4 MG TAB SUBLINGUAL PRN (13:10)
[2023-08-28] MEDS ORDERED: IPRATROPIUM-ALBUTEROL 3 ML NEB INHALATION PRN (13:10)
--- NOTE | 2023-08-28 13:42 | XR ---
EXAMINATION TYPE: XR chest 1V DATE OF EXAM: 08/28/2023 1:34 PM CLINICAL INDICATION:Male, 68 years old with history of CHF; COMPARISON: Chest radiographs from 08/25/2023. TECHNIQUE: XR chest 1V Frontal view of the chest. FINDINGS: Lungs/Pleura: There is no evidence of pleural effusion, focal consolidation, or pneumothorax. Pulmonary vascularity: Unremarkable. Heart/mediastinum: Cardiomediastinal silhouette is unremarkable. Musculoskeletal: No acute osseous pathology. IMPRESSION: No acute cardiopulmonary disease/process.
--- NOTE | 2023-08-28 14:18 | P.HPIM ---
History of Present Illness 68-year-old male was sent from intermediate because of dark stools patient hemoglobin did go down from 10 to around 6.5 received 1 unit of PRBC transfusion continues to have dark stools multiple soft stools patient is also on iron at at home. Patient is to present hemoglobin is 7.2 will order 1 more PRBC transfusion patient has multiple other chronic medical issues including congestive heart failure EF of around 25% although not in heart failure exacerbation at this time, patient has a left leg Santhosh potation with a wound VAC in place patient had osteomyelitis with Morganella in the past patient is presently on Cipro 250 mg daily patient is on a lot of medications. Patient is also on dual antiplatelet therapy. Unknown whether patient had a cardiac catheterization it is with stents recently but did have coronary artery disease history. Patient has a legal guardian presently alert oriented x 3 mental stat us is at his baseline. Patient does have history of schizophrenia. Patient is presently on IV Protonix twice a day. Review of systems: All other review of systems are negative except those mentioned above PHYSICAL EXAMINATION: GENERAL: The patient is alert and oriented x3, not in any acute distress. Well developed, well nourished. HEENT: Pupils are round and equally reacting to light. EOMI. No scleral icterus. No conjunctival pallor. Normocephalic, atraumatic. No pharyngeal erythema. No th yromegaly. CARDIOVASCULAR: S1 and S2 present. No murmurs, rubs, or gallops. PULMONARY: Chest is clear to auscultation, no wheezing or crackles. ABDOMEN: Soft, nontender, nondistended, normoactive bowel sounds. No palpable organomegaly. MUSCULOSKELETAL: No joint swelling or deformity. EXTREMITIES: No cyanosis, clubbing, or pedal edema. NEUROLOGICAL: Gross neurological examination did not reveal any focal deficits. No focal deficits SKIN: No rashes. Patient has a wound VAC as mentioned above Assessment and plan -Acute upper GI bleed will probably need an upper GI endoscopy hold off antip latelet therapy patient will be given 1 month of PRBC transfusion with surgical consultation for upper GI anoscopy -Congestive heart failure chronic systolic function without any acute exacerbation hold off on Lasix because of acute renal failure. Patient had EF of around 25% in the past -Acute renal failure: Creatinine improved from 1.4-1.1 today we will hold off on Lasix 1 more day. -Type 2 diabetes mellitus patient is on long-acting insulin dose of which will be cut down as patient will be n.p.o. after midnight today and continue with sliding scale insulin -Coronary disease -Obesity -History of schizophrenia -Osteomyelitis of the left foot toe for which patient is on wound VAC continue c iprofloxacin -Hyperlipidemia -DVT prophylaxis: No pharmacological DVT prophylaxis because of GI bleed Past Medical History Past Medical History: Cancer, Heart Failure, COPD, Dementia, Diabetes Mellitus, GERD/Reflux, Hearing Disorder / Deafness, Hyperlipidemia, Hypertension, Myocardial Infarction ([place]), Osteoarthritis (OA), Pneumonia Additional Past Medical History / Comment(s): Brain CA (30 years ago) in remission. 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 Mother Additional Family Medical History / Comment(s): Mother had a bad heart. Medications and Allergies Home Medications Medication Instructions Recorded Confirmed Type Atorvastatin [Lipitor] 80 mg PO HS@2100 01/12/19 08/28/23 History Clopidogrel Bisulfate [Plavix] 75 mg PO DAILY 07/28/21 08/28/23 History Ferrous Sulfate [Iron (65 MG 325 mg PO DAILY 07/28/21 08/28/23 History Elemental)] Ipratropium-Albuterol Nebulize 3 ml INHALATION RT-Q6H PRN 07/28/21 08/28/23 History [Duoneb 0.5 mg-3 mg/3 ml Soln] Famotidine [Pepcid] 20 mg PO BID 03/18/22 08/28/23 History Topiramate [Topamax] 25 mg PO HS 04/01/22 08/28/23 History Acetaminophen [Tylenol] 650 mg PO Q6H PRN 04/22/22 08/28/23 History Albuterol Sulfate [Albuterol 1 - 2 puff INHALATION RT-Q4H PRN 04/22/22 08/28/23 History Sulfate Hfa] Dicyclomine 10mg/5ml Oral Solution 10 mg PO TID 07/06/22 08/28/23 History Isosorbide Mononitrate ER [Imdur] 30 mg PO DAILY 07/06/22 08/28/23 History Nitroglycerin Sl Tabs [Nitrostat] 0.4 mg SL Q5M PRN 10/20/22 08/28/23 History Metoprolol Tartrate [Lopressor] 12.5 mg PO BID 12/08/22 08/28/23 History Furosemide [Lasix] 40 mg PO DAILY 03/31/23 08/28/23 History Lactobacillus Acidophilus 1 cap PO BID 03/31/23 08/28/23 History [Acidophilus Probiotic] Escitalopram [Lexapro] 20 mg PO HS tab 04/26/23 08/28/23 Rx Melatonin 3 mg PO HS tab 04/26/23 08/28/23 Rx Paliperidone [Invega] 3 mg PO HS tab 04/26/23 08/28/23 Rx Pantoprazole Sodium [Protonix] 40 mg PO DAILY #30 tab 04/26/23 08/28/23 Rx Albuterol Nebulized [Ventolin 2.5 mg INHALATION RT-Q6H PRN 08/28/23 08/28/23 History Nebulized] Amino Acids/Protein Hydrolys 30 ml PO BID 08/28/23 08/28/23 History [Pro-Stat Awc Liquid] Aspirin 81 mg PO DAILY 08/28/23 08/28/23 History Benzonatate [Tessalon Perles] 100 mg PO Q8H PRN 08/28/23 08/28/23 History Cholecalciferol [Vitamin D3 (25 125 mcg PO DAILY 08/28/23 08/28/23 History Mcg = 1000 Iu)] Ciprofloxacin HCl [Cipro] 250 mg PO Q12HR@0800,2000 08/28/23 08/28/23 History Colchicine [Colcrys] 0.6 mg PO HS 08/28/23 08/28/23 History Collagenase [Santyl Ointment] 1 applic TOPICAL HS 08/28/23 08/28/23 History Cyclobenzaprine [Flexeril] 10 mg PO Q8H PRN 08/28/23 08/28/23 History Dapagliflozin Propanediol [Farxiga] 10 mg PO DAILY 08/28/23 08/28/23 History HYDROcodone/APAP 5-325MG [[place] 1 tab PO Q6HR PRN 08/28/23 08/28/23 History 5-325] Insulin Glargine,Hum.rec.anlog 25 units SQ HS 08/28/23 08/28/23 History [Lantus Solostar Pen] Insulin Glargine,Hum.rec.anlog 32 units SQ DAILY 08/28/23 08/28/23 History [Lantus Solostar Pen] Lactulose [Cephulac] 20 gm PO DAILY PRN 08/28/23 08/28/23 History Naloxone HCl [Narcan] 4 mg NASAL DIRECTED PRN 08/28/23 08/28/23 History Sucralfate [Carafate] 1 gm PO Q6H 08/28/23 08/28/23 History diphenhydrAMINE & Zinc Cream 1 applic TOPICAL BID 08/28/23 08/28/23 History [Benadryl Cream] Allergies Allergy/AdvReac Type Severity Reaction Status Date / Time furosemide [From Lasix] AdvReac Unknown Verified 08/28/23 10:21 sacubitril [From Entresto] AdvReac made him Verified 08/28/23 10:21 hypotensive valsartan [From Entresto] AdvReac made him Verified 08/28/23 10:21 hypotensive Physical Exam Vitals: Vital Signs Temp Pulse Resp BP Pulse Ox 08/28/23 12:00 86 18 170/78 96 08/28/23 10:00 85 18 153/84 97 08/28/23 08:25 90 18 145/72 98 08/28/23 07:55 89 18 97 08/28/23 06:23 98.3 F 90 20 129/75 96 08/28/23 03:15 98.8 F 85 16 152/74 100 08/28/23 03:00 98.7 F 87 16 164/81 100 08/28/23 02:00 98.7 F 89 16 163/81 100 08/28/23 01:30 98.7 F 85 18 164/80 100 08/28/23 01:01 98.8 F 79 16 154/78 100 08/28/23 00:41 98.7 F 88 19 154/80 100 08/28/23 00:38 88 18 149/80 100 08/28/23 00:28 98.8 F 81 18 170/78 99 08/27/23 20:25 98.5 F 77 16 134/64 100 Intake and Output 08/27/23 08/28/23 08/28/23 22:59 06:59 14:59 Intake Total 310 Balance 310 Intake: Blood Product 310 Rc As-1 Unit 310 [id number] Other: Weight 90.718 kg Results CBC & Chem 7: 08/28/23 07:54 08/28/23 07:54 Labs: Abnormal Lab Results - Last 24 Hours (Table) 08/27/23 08/27/23 08/27/23 Range/Units 20:55 21:01 21:01 RBC 2.05 L (4.30-5.90) m/uL Hgb 6.5 L* (13.0-17.5) gm/dL Hct 19.4 L* (39.0-53.0) % Chloride 108 H (98-107) mmol/L BUN 70 H (9-20) mg/dL Creatinine 1.39 H (0.66-1.25) mg/dL Glucose 173 H (74-99) mg/dL Alkaline Phosphatase 141 H (38-126) U/L Total Protein 5.8 L (6.3-8.2) g/dL Albumin 3.0 L (3.5-5.0) g/dL Crossmatch See Detail 08/28/23 08/28/23 Range/Units 07:54 07:54 RBC 2.30 L (4.30-5.90) m/uL Hgb 7.2 L (13.0-17.5) gm/dL Hct 21.8 L (39.0-53.0) % Chloride 110 H (98-107) mmol/L BUN 52 H (9-20) mg/dL Creatinine (0.66-1.25) mg/dL Glucose 109 H (74-99) mg/dL Alkaline Phosphatase (38-126) U/L Total Protein 5.3 L (6.3-8.2) g/dL Albumin 2.6 L (3.5-5.0) g/dL Crossmatch
[2023-08-28] MEDS: CIPROFLOXACIN HCL 250 MG TAB PO SCH (14:55)
[2023-08-28] MEDS: SUCRALFATE 1 GM TAB PO SCH (14:55)
[2023-08-28] MEDS: DICYCLOMINE 10 MG CAP PO SCH (14:55)
[2023-08-28 16:25] LABS: Glucose,Whole Blood 114 mg/dL (70-110)
[2023-08-28] MEDS ORDERED: CIPROFLOXACIN HCL 250 MG TAB PO SCH (20:00)
[2023-08-28 20:09] LABS: Glucose,Whole Blood 179 mg/dL (70-110)
[2023-08-28] MEDS: COLLAGENASE 250 UNIT/GM TOPICAL SCH (20:41)
[2023-08-28] MEDS: METOPROLOL TARTRATE 12.5 MG TAB PO SCH (20:42)
[2023-08-28] MEDS: TOPIRAMATE 25 MG TAB PO SCH (20:43)
[2023-08-28] MEDS: INSULIN DETEMIR (LEVEMIR) 100 UNIT/ML SYR SQ SCH (20:43)
[2023-08-28] MEDS: ESCITALOPRAM 20 MG TAB PO SCH (20:43)
[2023-08-28] MEDS: ATORVASTATIN 80 MG TAB PO SCH (20:43)
[2023-08-28] MEDS ORDERED: COLCHICINE 0.6 MG EACH PO SCH (21:00)
[2023-08-29 06:10] LABS: Glucose,Whole Blood 145 mg/dL (70-110)
[2023-08-29 06:37] LABS: HCT 27.4 % (39.0-53.0); HGB 8.6 gm/dL (13.0-17.5); MCH 29.8 pg (25.0-35.0); MCHC 31.3 g/dL (31.0-37.0); MCV 95.1 fL (80.0-100.0); Mean Platelet Volume 7.8; Platelet Count 261 k/uL (150-450); RBC 2.89 m/uL (4.30-5.90); RDW 15.3 % (11.5-15.5); WBC 12.1 k/uL (3.8-10.6)
[2023-08-29 06:47] LABS: African American GFR (CKD) >90 (>60 ml/min/1.73 sqM); Anion Gap 3 mmol/L; Blood Urea Nitrogen 31 mg/dL (9-20); Calcium 8.9 mg/dL (8.4-10.2); Carbon Dioxide 28 mmol/L (22-30); Chloride 110 mmol/L (98-107); Glucose 128 mg/dL (74-99); Non-African American GFR(CKD) >90 (>60 ml/min/1.73 sqM); Potassium 3.8 mmol/L (3.5-5.1); Sodium 141 mmol/L (137-145)
[2023-08-29] MEDS: ISOSORBIDE MONONITRATE ER 30 MG TAB.ER.24H PO SCH (08:40)
[2023-08-29] MEDS: PANTOPRAZOLE 40 MG TABLET PO SCH (08:40)
[2023-08-29] MEDS: DAPAGLIFLOZIN PROPANEDIOL 10 MG TABLET PO SCH (08:40)
--- NOTE | 2023-08-29 11:23 | P.GSCN ---
History of Present Illness Consult date: 08/29/23 Reason for Consult: GI bleed History of present illness: 68-year-old male known to our service. Patient came to the hospital complaining of low hemoglobin. This was found on a outpatient lab work. Patient with some black stools. Patient is on antiplatelet therapy. Patient underwent upper and lower endoscopy in April. Colonoscopy was normal on the second attempt and the EGD showed gastritis. Denies pain. Patient received 2 units of blood hemoglobin now improved. Review of Systems The patient denies any acute changes in vision or hearing, no dysphagia or odynophagia, no chest pain or shortness of breath, no dysuria or hematuria, no headache, no runny nose, no unexplained weight loss Past Medical History Past Medical History: Cancer, Heart Failure, COPD, Dementia, Diabetes Mellitus, GERD/Reflux, Hearing Disorder / Deafness, Hyperlipidemia, Hypertension, My ocardial Infarction ([place]), Osteoarthritis (OA), Pneumonia Additional Past Medical History / Comment(s): Brain CA (30 years ago) in remission. 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 Mother Additional Family Medical History / Comment(s): Mother had a bad heart. Medications and Allergies Home Medications Medication Instructions Recorded Confirmed Type Atorvastatin [Lipitor] 80 mg PO HS@2100 01/12/19 08/28/23 History Clopidogrel Bisulfate [Plavix] 75 mg PO DAILY 07/28/21 08/28/23 History Ferrous Sulfate [Iron (65 MG 325 mg PO DAILY 07/28/21 08/28/23 History Elemental)] Ipratropium-Albuterol Nebulize 3 ml INHALATION RT-Q6H PRN 07/28/21 08/28/23 History [Duoneb 0.5 mg-3 mg/3 ml Soln] Famotidine [Pepcid] 20 mg PO BID 03/18/22 08/28/23 History Topiramate [Topamax] 25 mg PO HS 04/01/22 08/28/23 History Acetaminophen [Tylenol] 650 mg PO Q6H PRN 04/22/22 08/28/23 History Albuterol Sulfate [Albuterol 1 - 2 puff INHALATION RT-Q4H PRN 04/22/22 08/28/23 History Sulfate Hfa] Dicyclomine 10mg/5ml Oral Solution 10 mg PO TID 07/06/22 08/28/23 History Isosorbide Mononitrate ER [Imdur] 30 mg PO DAILY 07/06/22 08/28/23 History Nitroglycerin Sl Tabs [Nitrostat] 0.4 mg SL Q5M PRN 10/20/22 08/28/23 History Metoprolol Tartrate [Lopressor] 12.5 mg PO BID 12/08/22 08/28/23 History Furosemide [Lasix] 40 mg PO DAILY 03/31/23 08/28/23 History Lactobacillus Acidophilus 1 cap PO BID 03/31/23 08/28/23 History [Acidophilus Probiotic] Escitalopram [Lexapro] 20 mg PO HS tab 04/26/23 08/28/23 Rx Melatonin 3 mg PO HS tab 04/26/23 08/28/23 Rx Paliperidone [Invega] 3 mg PO HS tab 04/26/23 08/28/23 Rx Pantoprazole Sodium [Protonix] 40 mg PO DAILY #30 tab 04/26/23 08/28/23 Rx Albuterol Nebulized [Ventolin 2.5 mg INHALATION RT-Q6H PRN 08/28/23 08/28/23 History Nebulized] Amino Acids/Protein Hydrolys 30 ml PO BID 08/28/23 08/28/23 History [Pro-Stat Awc Liquid] Aspirin 81 mg PO DAILY 08/28/23 08/28/23 History Benzonatate [Tessalon Perles] 100 mg PO Q8H PRN 08/28/23 08/28/23 History Cholecalciferol [Vitamin D3 (25 125 mcg PO DAILY 08/28/23 08/28/23 History Mcg = 1000 Iu)] Ciprofloxacin HCl [Cipro] 250 mg PO Q12HR@0800,2000 08/28/23 08/28/23 History Colchicine [Colcrys] 0.6 mg PO HS 08/28/23 08/28/23 History Collagenase [Santyl Ointment] 1 applic TOPICAL HS 08/28/23 08/28/23 History Cyclobenzaprine [Flexeril] 10 mg PO Q8H PRN 08/28/23 08/28/23 History Dapagliflozin Propanediol [Farxiga] 10 mg PO DAILY 08/28/23 08/28/23 History HYDROcodone/APAP 5-325MG [[place] 1 tab PO Q6HR PRN 08/28/23 08/28/23 History 5-325] Insulin Glargine,Hum.rec.anlog 25 units SQ HS 08/28/23 08/28/23 History [Lantus Solostar Pen] Insulin Glargine,Hum.rec.anlog 32 units SQ DAILY 08/28/23 08/28/23 History [Lantus Solostar Pen] Lactulose [Cephulac] 20 gm PO DAILY PRN 08/28/23 08/28/23 History Naloxone HCl [Narcan] 4 mg NASAL DIRECTED PRN 08/28/23 08/28/23 History Sucralfate [Carafate] 1 gm PO Q6H 08/28/23 08/28/23 History diphenhydrAMINE & Zinc Cream 1 applic TOPICAL BID 08/28/23 08/28/23 History [Benadryl Cream] Allergies Allergy/AdvReac Type Severity Reaction Status Date / Time furosemide [From Lasix] AdvReac Unknown Verified 08/28/23 10:21 sacubitril [From Entresto] AdvReac made him Verified 08/28/23 10:21 hypotensive valsartan [From Entresto] AdvReac made him Verified 08/28/23 10:21 hypotensive Surgical - Exam Vital Signs Temp Pulse Resp BP Pulse Ox 98.5 F 77 16 134/64 100 08/27/23 20:25 08/27/23 20:25 08/27/23 20:25 08/27/23 20:25 08/27/23 20:25 Physical exam: General: Well-developed, well-nourished HEENT: Normocephalic, sclerae nonicteric Abdomen: Nontender, nondistended Extremities: Dressing in place Neuro: Alert and oriented Results - Labs 08/29/23 06:00 08/29/23 06:00 Abnormal Lab Results - Last 24 Hours (Table) 08/27/23 08/28/23 08/28/23 Range/Units 20:55 16:21 20:02 WBC (3.8-10.6) k/uL RBC (4.30-5.90) m/uL Hgb (13.0-17.5) gm/dL Hct (39.0-53.0) % Chloride (98-107) mmol/L BUN (9-20) mg/dL Glucose (74-99) mg/dL POC Glucose (mg/dL) 114 H 179 H (70-110) mg/dL Crossmatch See Detail 08/29/23 08/29/23 08/29/23 Range/Units 06:00 06:00 06:08 WBC 12.1 H (3.8-10.6) k/uL RBC 2.89 L (4.30-5.90) m/uL Hgb 8.6 L (13.0-17.5) gm/dL Hct 27.4 L (39.0-53.0) % Chloride 110 H (98-107) mmol/L BUN 31 H (9-20) mg/dL Glucose 128 H (74-99) mg/dL POC Glucose (mg/dL) 145 H (70-110) mg/dL Crossmatch Diabetes panel 08/29/23 Range/Units 06:00 Sodium 141 (137-145) mmol/L Potassium 3.8 (3.5-5.1) mmol/L Chloride 110 H (98-107) mmol/L Carbon Dioxide 28 (22-30) mmol/L BUN 31 H (9-20) mg/dL Creatinine 0.85 (0.66-1.25) mg/dL Glucose 128 H (74-99) mg/dL Calcium 8.9 (8.4-10.2) mg/dL Calcium panel 08/29/23 Range/Units 06:00 Calcium 8.9 (8.4-10.2) mg/dL Pituitary panel 08/29/23 Range/Units 06:00 Sodium 141 (137-145) mmol/L Potassium 3.8 (3.5-5.1) mmol/L Chloride 110 H (98-107) mmol/L Carbon Dioxide 28 (22-30) mmol/L BUN 31 H (9-20) mg/dL Creatinine 0.85 (0.66-1.25) mg/dL Glucose 128 H (74-99) mg/dL Calcium 8.9 (8.4-10.2) mg/dL Adrenal panel 08/29/23 Range/Units 06:00 Sodium 141 (137-145) mmol/L Potassium 3.8 (3.5-5.1) mmol/L Chloride 110 H (98-107) mmol/L Carbon Dioxide 28 (22-30) mmol/L BUN 31 H (9-20) mg/dL Creatinine 0.85 (0.66-1.25) mg/dL Glucose 128 H (74-99) mg/dL Calcium 8.9 (8.4-10.2) mg/dL Assessment and Plan (1) Anemia Narrative/Plan: 68-year-old male with anemia and black-colored stools. Will proceed with upper endoscopy tomorrow to evaluate for upper GI source of bleeding. No plans for colonoscopy at this time. Monitor hemoglobin. Current Visit: Yes Status: Acute Code(s): D64.9 - ANEMIA, UNSPECIFIED SNOMED Code(s): 367951289
[2023-08-29 11:37] LABS: Glucose,Whole Blood 173 mg/dL (70-110)
--- NOTE | 2023-08-29 13:05 | P.PN ---
Subjective Progress Note Date: 08/29/23 68-year-old male was sent from residential because of dark stools patient hemoglobin did go down from 10 to around 6.5 received 1 unit of PRBC transfusion continues to have dark stools multiple soft stools patient is also on iron at at home. Patient is to present hemoglobin is 7.2 will order 1 more PRBC transfusion patient has multiple other chronic medical issues including congestive heart failure EF of around 25% although not in heart failure exacerbation at this time, patient has a left leg Santhosh potation with a wound VAC in place patient had osteomyelitis with Morganella in the past patient is presently on Cipro 250 mg daily patient is on a lot of medications. Patient is also on dual antiplatelet therapy. Unknown whether patient had a cardiac catheterization it is with stents recently but did have coronary artery disease history. Patient has a legal guardian presently alert oriented x 3 mental status is at his baseline. Patient does have history of schizophrenia. Patient is presently on IV Protonix twice a day. 08/29/2023 Patient is evaluated on the medial floor. He is status post 2 units of PRBCs with repeat hemoglobin of 8.6. White blood cell count is 12.1 Potassium 3.8. BUN 31, creatinine 0.85. Blood glucose in the 140-170s. No further reports of black stool is scheduled for upper endoscopy on Wednesday. Patient will be resumed on his oral lasix today. Continues on oral cipro. Review of Systems Constitutional: Denied any fatigue denied any fever. Cardio vascular: denied any chest pain, palpitations Gastrointestinal: denied any nausea, vomiting, diarrhea Pulmonary: Denied any shortness of breath cough Neurologic denied any new focal deficits All inpatient medications were reviewed and appropriate changes in these medications as dictated in the interval history and assessment and plan. PHYSICAL EXAMINATION: GENERAL: The patient is alert and oriented x3, not in any acute distress. Well developed, well nourished. HEENT: Pupils are round and equally reacting to light. EOMI. No scleral icterus. No conjunctival pallor. Normocephalic, atraumatic. No pharyngeal erythema. No thyromegaly. CARDIOVASCULAR: S1 and S2 present. No murmurs, rubs, or gallops. PULMONARY: Chest is clear to auscultation, no wheezing or crackles. ABDOMEN: Soft, nontender, nondistended, normoactive bowel sounds. No palpable organomegaly. MUSCULOSKELETAL: No joint swelling or deformity. EXTREMITIES: No cyanosis, clubbing, or pedal edema. NEUROLOGICAL: Gross neurological examination did not reveal any focal deficits. No focal deficits SKIN: No rashes. Patient has a wound VAC as mentioned above Assessment and plan -Acute upper GI bleed will probably need an upper GI endoscopy hold off antiplatelet therapy status post 2 units PRBC with stable hemoglobin. -Congestive heart failure chronic systolic function without any acute exacerbation hold off on Lasix because of acute renal failure. Patient had EF of around 25% in the past -Acute renal failure: Creatinine improved from 1.4-1.1 renal function now wnl and lasix will be resumed. -Type 2 diabetes mellitus patient is on long-acting insulin dose of which will be cut down as patient will be n.p.o. after midnight today and continue with sliding scale insulin -Coronary disease -Obesity -History of schizophrenia -Osteomyelitis of the left foot toe for which patient is on wound VAC continue ciprofloxacin -Hyperlipidemia -DVT prophylaxis: No pharmacological DVT prophylaxis because of GI bleed Plan for upper endoscopy tomorrow. Monitor CBC. The impression and plan of care has been dictated by Bhavana Walter, Nurse Practitioner as directed. Dr. Kate MD I have performed a history and physical examination and medical decision making of this patient, discussed the same with the dictator, and agree with the dictators assessment and plan as written, documented as a scribe. Based on total visit time, I have performed more than 50% of this visit. Objective - Vital Signs Vital signs: Vital Signs Temp 98.1 F 08/29/23 08:00 Pulse 88 08/29/23 08:00 Resp 16 08/29/23 08:00 BP 149/66 08/29/23 08:00 Pulse Ox 100 08/29/23 08:00 FiO2 Intake & Output 08/28/23 08/29/23 08/29/23 18:59 06:59 18:59 Intake Total 810 180 Output Total 950 Balance 810 -950 180 Intake: Oral 500 180 Blood Product 310 Rc As-1 Unit 310 [id number] Output: Urine 950 Other: Voiding Method Diaper Diaper # Voids 1 - Labs CBC & Chem 7: 08/29/23 06:00 08/29/23 06:00 Labs: Abnormal Lab Results - Last 24 Hours (Table) 08/27/23 08/28/23 08/28/23 Range/Units 20:55 16:21 20:02 WBC (3.8-10.6) k/uL RBC (4.30-5.90) m/uL Hgb (13.0-17.5) gm/dL Hct (39.0-53.0) % Chloride (98-107) mmol/L BUN (9-20) mg/dL Glucose (74-99) mg/dL POC Glucose (mg/dL) 114 H 179 H (70-110) mg/dL Crossmatch See Detail 08/29/23 08/29/23 08/29/23 Range/Units 06:00 06:00 06:08 WBC 12.1 H (3.8-10.6) k/uL RBC 2.89 L (4.30-5.90) m/uL Hgb 8.6 L (13.0-17.5) gm/dL Hct 27.4 L (39.0-53.0) % Chloride 110 H (98-107) mmol/L BUN 31 H (9-20) mg/dL Glucose 128 H (74-99) mg/dL POC Glucose (mg/dL) 145 H (70-110) mg/dL Crossmatch 08/29/23 Range/Units 11:35 WBC (3.8-10.6) k/uL RBC (4.30-5.90) m/uL Hgb (13.0-17.5) gm/dL Hct (39.0-53.0) % Chloride (98-107) mmol/L BUN (9-20) mg/dL Glucose (74-99) mg/dL POC Glucose (mg/dL) 173 H (70-110) mg/dL Crossmatch Assessment and Plan Time with Patient: Less than 30
[2023-08-29] MEDS: FUROSEMIDE 40 MG TAB PO SCH (13:34)
[2023-08-29 16:38] LABS: Glucose,Whole Blood 192 mg/dL (70-110)
[2023-08-29 20:25] LABS: Glucose,Whole Blood 221 mg/dL (70-110)
[2023-08-29] MEDS: ALBUTEROL NEBULIZED 2.5 MG/3 ML INHALATION PRN (21:05)
[2023-08-29] MEDS: HYDROcodone/APAP 5-325MG 1 EACH TAB PO PRN (21:30)
[2023-08-29] MEDS: PALIPERIDONE 3 MG TAB.ER.24 PO SCH (21:32)
[2023-08-30 06:09] LABS: Glucose,Whole Blood 189 mg/dL (70-110)
[2023-08-30 11:19] VITALS: TEMP 98.4
[2023-08-30 11:42] LABS: Glucose,Whole Blood 124 mg/dL (70-110)
[2023-08-30 11:43] LABS: African American GFR (CKD) >90 (>60 ml/min/1.73 sqM); Anion Gap 6 mmol/L; Blood Urea Nitrogen 31 mg/dL (9-20); Calcium 8.5 mg/dL (8.4-10.2); Carbon Dioxide 26 mmol/L (22-30); Chloride 109 mmol/L (98-107); Glucose 109 mg/dL (74-99); Non-African American GFR(CKD) 81 (>60 ml/min/1.73 sqM); Potassium 3.7 mmol/L (3.5-5.1); Sodium 141 mmol/L (137-145)
[2023-08-30] MEDS ORDERED: PROPOFOL 10 MG/ML 20 ML VIAL IV ONE (12:05)
[2023-08-30] MEDS ORDERED: PHENYLEPHRINE 10 MG/ML VIAL ONE (12:05)
[2023-08-30] MEDS: IV FLUID CONTINUATION 1,000 ML IV ONE ×2 (12:11→12:18)
--- NOTE | 2023-08-30 12:24 | P.PCN ---
Procedure(s) Performed: Preoperative Dx: Anemia, GI bleed Postoperative Dx: Erosive gastritis Procedure: EGD with Bx Anesthesia: Sedation Endoscopist: Dr. Steen Specimens: Fundus Endoscopic Procedure: The patient was on the endoscopy table in the left decubitus position. The Olympus gastroscope was inserted into the oropharynx and passed under direct visualization to the region of the third portion of the duodenum. From that point the scope was slowly withdrawn inspecting all surfaces carefully. There were no neoplastic inflammatory or polypoid lesions throughout the duodenum. The pylorus was widely patent. The stomach was carefully inspected. There was 2 linear erosions in the fundus of the stomach. This was likely the source of recent bleeding/anemia. This could have been related to medications causing local irritation there. Biopsy of the inflamed fundus took place. There was no visible hiatal hernia. The esophagus was then carefully examined. There were no neoplastic inflammatory or polypoid lesions throughout the visualized esophagus. The patient was then taken to the recovery room in stable condition per anesthesia guidelines. Recommendations: Continue antiacid therapy. Add Carafate.
--- NOTE | 2023-08-30 13:25 | CA ---
Transthoracic Echo Report Name: Simon Valdez Age: 68 Gender: M : 1955 Exam Date: 08/30/2023 08:42 Exam Location: [facility] Ht (in): 74 Wt (lb): 200 Ordering Physician: Bhavana Walter Attending/Referring Phys: Jose Angel CAIN Program Mgr Xiao Darden RDCS Procedure CPT: Indications: chf Cardiac Hx: Technical Quality: Fair Contrast 1: Total Dose (mL): Contrast 2: Total Dose (mL): MEASUREMENTS (Male / Female) Normal Values 2D ECHO LV Diastolic Diameter PLAX 7.2 cm 4.2 - 5.9 / 3.9 - 5.3 cm LV Systolic Diameter PLAX 6.1 cm IVS Diastolic Thickness 1.0 cm 0.6 - 1.0 / 0.6 - 0.9 cm LVPW Diastolic Thickness 1.0 cm 0.6 - 1.0 / 0.6 - 0.9 cm LV Relative Wall Thickness 0.3 RV Internal Dim ED PLAX 2.0 cm LA Systolic Diameter LX 4.1 cm 3.0 - 4.0 / 2.7 - 3.8 cm LV Diastolic Volume MOD BP 138.2 cm??? 67 - 155 / 56 - 104 cm??? LV Systolic Volume MOD BP 94.9 cm??? 22 - 58 / 19 - 49 cm??? LV Ejection Fraction MOD BP 31.3 % >= 55 % LV Cardiac Index MOD BP 1605.7 cm???/min???m??? LV Diastolic Volume MOD 4C 149.2 cm??? LV Systolic Volume MOD 4C 102.6 cm??? LV Ejection Fraction MOD 4C 31.2 % LV Cardiac Index MOD 4C 1727.7 cm???/min???m??? LV Diastolic Length 4C 8.0 cm LV Systolic Length 4C 8.1 cm LV Diastolic Volume MOD 2C 118.6 cm??? LV Systolic Volume MOD 2C 78.7 cm??? LV Ejection Fraction MOD 2C 33.7 % LV Cardiac Index MOD 2C 1480.0 cm???/min???m??? LV Diastolic Length 2C 8.8 cm LV Systolic Length 2C 7.2 cm M-MODE Aortic Root Diameter MM 3.3 cm LA Systolic Diameter MM 4.3 cm LA Ao Ratio MM 1.3 AV Cusp Separation MM 2.0 cm DOPPLER AV Peak Velocity 126.7 cm/s AV Peak Gradient 6.4 mmHg Mitral E Point Velocity 44.5 cm/s Mitral A Point Velocity 65.9 cm/s Mitral E to A Ratio 0.7 MV Deceleration Time 233.6 ms MV E' Velocity 4.9 cm/s Mitral E to MV E' Ratio 9.1 TR Peak Velocity 139.6 cm/s TR Peak Gradient 7.8 mmHg Right Ventricular Systolic Press 17.8 mmHg FINDINGS Left Ventricle Left ventricular ejection fraction is estimated at 30-35%. Severely increased left ventricular diastolic diameter. Severely increased left ventricular systolic volume. Moderately decreased left ventricular ejection fraction. Right Ventricle Normal right ventricular size and function. Right ventricular systolic pressure within normal limits. Right Atrium Normal right atrial size. Left Atrium Mildly increased left atrial diameter. Mitral Valve Structurally normal mitral valve. Trace mitral regurgitation. Aortic Valve Trileaflet aortic valve. No aortic valve stenosis or regurgitation. Tricuspid Valve Structurally normal tricuspid valve. Trace tricuspid regurgitation. Pulmonic Valve Structurally normal pulmonic valve. Trace pulmonic regurgitation. Pericardium No pericardial or pleural effusion. Aorta Normal size aortic root and proximal ascending aorta. CONCLUSIONS Left ventricular ejection fraction 30-35% Trace mitral regurgitation Trace tricuspid regurgitation RVSP 18 Previewed by: Dr. Rory Davis DO (Electronically Signed) Final Date: 30 Aug 2023 13:24
[2023-08-30 14:20] VITALS: BP 104/58; PULSE 67; RESP 18
--- NOTE | 2023-08-30 14:43 | P.DS ---
Providers Date of admission: 08/27/23 21:57 Attending physician: Joselo Hunt Consults: 08/28/23 13:20 Consult Physician Routine Consulting Provider: Ham Mora Consult Reason/Comments: L foot wound vac Do you want consulting provider notified?: Yes 08/30/23 08:17 Consult Physician Routine Consulting Provider: Demetrius Steen Consult Reason/Comments: GIB Do you want consulting provider notified?: Already Contacted Primary care physician: Demetrius Farah MD Hospital Course: Final Diagnosis -Acute upper GI bleed -Congestive heart failure chronic systolic function without any acute exacerbation, Patient had EF of around 25% in the past -Acute renal failure: Creatinine improved from 1.4-1.1 renal function now wnl and lasix will be resumed. -Type 2 diabetes mellitus patient is on long-acting insulin dose -Coronary artery disease -Obesity -History of schizophrenia -Osteomyelitis of the left foot toe for which patient is on wound VAC continue ciprofloxacin -Hyperlipidemia Discharge Disposition Patient stable for discharge back to the ECF. Patient will continue on all same home medications. Recommending to repeat a BMP and CBC in 2 to 3 days. Patient to follow-up with Dr. Bautista. Patient to be resumed on wound vac on return to ECF. Hospital Course 68-year-old male with medical history of coronary artery disease, schizophrenia, osteomyelitis, hyperlipidemia, diabetes mellitus was [facility] because of dark stools patient hemoglobin did go down from 10 to around 6.5 received 1 unit of PRBC transfusion continues to have dark stools multiple soft stools patient is also on iron at at home. Repeat hemoglobin is 7.2 will order 1 more PRBC transfusion patient has multiple other chronic medical issues including congestive heart failure EF of around 25% although not in heart failure exacerbation at this time, patient has a left leg wound with a wound VAC in place patient had osteomyelitis with Morganella in the past patient is presently on Cipro. Patient is also on dual antiplatelet therapy. Unknown whether patient had a cardiac catheterization it is with stents recently but did have coronary artery disease history. Patient has a legal guardian presently a lert oriented x 3 mental status is at his baseline. patient does have history of schizophrenia. Patient patient's BUN was 70 and a creatinine 1.39. Patient started on IV Protonix twice a day. Was admitted and general surgery consulted for anemia and concern for dark stools. Underwent EGD which reveals 2 linear erosions in the fundus of the stomach that was likely the source of the recent bleeding/anemia. This could be related to medications causing local irritation. This was biopsied. Patient was recommended to continue on Carafate and Pepcid. Patient did have an echocardiogram done revealing an EF of 30 to 35% which has improved from previous documented echocardiogram. Globin is up to 8.6. His renal function is within normal limits has improved with a BUN of 21 and a creatinine of 0.98. He is not having any abdominal pain, nausea, vomiting or diarrhea. He is not having any chest pain, shortness of breath. Patient is alert x 3 at baseline and will be discharge back to [facility]. Please see medication reconciliation for a list of current medications. Thank you for allowing us to participate in the care of this patient. The impression and plan of care has been dictated by Bhavana Walter, Nurse Practitioner as directed. Dr. Kate MD I have performed a history and physical examination and medical decision making of this patient, discussed the same with the dictator, and agree with the dictators assessment and plan as written, documented as a scribe. Based on total visit time, I have performed more than 50% of this visit. Patient Condition at Discharge: Fair Plan - Discharge Summary New Discharge Prescriptions: Continue Atorvastatin [Lipitor] 80 mg PO HS@2100 Ipratropium-Albuterol Nebulize [Duoneb 0.5 mg-3 mg/3 ml Soln] 3 ml INHALATION RT-Q6H PRN PRN Reason: Shortness Of Breath Or Wheezing Clopidogrel Bisulfate [Plavix] 75 mg PO DAILY Famotidine [Pepcid] 20 mg PO BID Acetaminophen [Tylenol] 650 mg PO Q6H PRN PRN Reason: Fever And/ Or Pain Albuterol Sulfate [Albuterol Sulfate Hfa] 1 - 2 puff INHALATION RT-Q4H PRN PRN Reason: Shortness Of Breath Isosorbide Mononitrate ER [Imdur] 30 mg PO DAILY Metoprolol Tartrate [Lopressor] 12.5 mg PO BID Paliperidone [Invega] 3 mg PO HS tab Melatonin 3 mg PO HS tab Insulin Glargine,Hum.rec.anlog [Lantus Solostar Pen] 25 units SQ HS Insulin Glargine,Hum.rec.anlog [Lantus Solostar Pen] 32 units SQ DAILY diphenhydrAMINE & Zinc Cream [Benadryl Cream] 1 applic TOPICAL BID Dapagliflozin Propanediol [Farxiga] 10 mg PO DAILY Collagenase [Santyl Ointment] 1 applic TOPICAL HS Ciprofloxacin HCl [Cipro] 250 mg PO Q12HR@0800,2000 Cholecalciferol [Vitamin D3 (25 Mcg = 1000 Iu)] 125 mcg PO DAILY Amino Acids/Protein Hydrolys [Pro-Stat Awc Liquid] 30 ml PO BID Lactulose [Cephulac] 20 gm PO DAILY PRN PRN Reason: Constipation Colchicine [Colcrys] 0.6 mg PO HS HYDROcodone/APAP 5-325MG [[place] 5-325] 1 tab PO Q6HR PRN #4 tab PRN Reason: Pain Ferrous Sulfate [Iron (65 MG Elemental)] 325 mg PO DAILY Topiramate [Topamax] 25 mg PO HS Dicyclomine 10mg/5ml Oral Solution 10 mg PO TID Nitroglycerin Sl Tabs [Nitrostat] 0.4 mg SL Q5M PRN PRN Reason: Chest Pain Lactobacillus Acidophilus [Acidophilus Probiotic] 1 cap PO BID Furosemide [Lasix] 40 mg PO DAILY Escitalopram [Lexapro] 20 mg PO HS tab Pantoprazole Sodium [Protonix] 40 mg PO DAILY #30 tab Sucralfate [Carafate] 1 gm PO Q6H Naloxone HCl [Narcan] 4 mg NASAL DIRECTED PRN PRN Reason: Opioid Reversal Benzonatate [Tessalon Perles] 100 mg PO Q8H PRN PRN Reason: Cough Aspirin 81 mg PO DAILY Albuterol Nebulized [Ventolin Nebulized] 2.5 mg INHALATION RT-Q6H PRN PRN Reason: Shortness Of Breath Cyclobenzaprine [Flexeril] 10 mg PO Q8H PRN PRN Reason: Muscle Spasm Discharge Medication List Atorvastatin [Lipitor] 80 mg PO HS@2100 01/12/19 [History] Clopidogrel Bisulfate [Plavix] 75 mg PO DAILY 07/28/21 [History] Ferrous Sulfate [Iron (65 MG Elemental)] 325 mg PO DAILY 07/28/21 [History] Ipratropium-Albuterol Nebulize [Duoneb 0.5 mg-3 mg/3 ml Soln] 3 ml INHALATION RT-Q6H PRN 07/28/21 [History] Famotidine [Pepcid] 20 mg PO BID 03/18/22 [History] Topiramate [Topamax] 25 mg PO HS 04/01/22 [History] Acetaminophen [Tylenol] 650 mg PO Q6H PRN 04/22/22 [History] Albuterol Sulfate [Albuterol Sulfate Hfa] 1 - 2 puff INHALATION RT-Q4H PRN 04/22/22 [History] Dicyclomine 10mg/5ml Oral Solution 10 mg PO TID 07/06/22 [History] Isosorbide Mononitrate ER [Imdur] 30 mg PO DAILY 07/06/22 [History] Nitroglycerin Sl Tabs [Nitrostat] 0.4 mg SL Q5M PRN 10/20/22 [History] Metoprolol Tartrate [Lopressor] 12.5 mg PO BID 12/08/22 [History] Furosemide [Lasix] 40 mg PO DAILY 03/31/23 [History] Lactobacillus Acidophilus [Acidophilus Probiotic] 1 cap PO BID 03/31/23 [History] Escitalopram [Lexapro] 20 mg PO HS tab 04/26/23 [Rx] Melatonin 3 mg PO HS tab 04/26/23 [Rx] Paliperidone [Invega] 3 mg PO HS tab 04/26/23 [Rx] Pantoprazole Sodium [Protonix] 40 mg PO DAILY #30 tab 04/26/23 [Rx] Albuterol Nebulized [Ventolin Nebulized] 2.5 mg INHALATION RT-Q6H PRN 08/28/23 [History] Amino Acids/Protein Hydrolys [Pro-Stat Awc Liquid] 30 ml PO BID 08/28/23 [History] Aspirin 81 mg PO DAILY 08/28/23 [History] Benzonatate [Tessalon Perles] 100 mg PO Q8H PRN 08/28/23 [History] Cholecalciferol [Vitamin D3 (25 Mcg = 1000 Iu)] 125 mcg PO DAILY 08/28/23 [History] Ciprofloxacin HCl [Cipro] 250 mg PO Q12HR@0800,2000 08/28/23 [History] Colchicine [Colcrys] 0.6 mg PO HS 08/28/23 [History] Collagenase [Santyl Ointment] 1 applic TOPICAL HS 08/28/23 [History] Cyclobenzaprine [Flexeril] 10 mg PO Q8H PRN 08/28/23 [History] Dapagliflozin Propanediol [Farxiga] 10 mg PO DAILY 08/28/23 [History] Insulin Glargine,Hum.rec.anlog [Lantus Solostar Pen] 25 units SQ HS 08/28/23 [History] Insulin Glargine,Hum.rec.anlog [Lantus Solostar Pen] 32 units SQ DAILY 08/28/23 [History] Lactulose [Cephulac] 20 gm PO DAILY PRN 08/28/23 [History] Naloxone HCl [Narcan] 4 mg NASAL DIRECTED PRN 08/28/23 [History] Sucralfate [Carafate] 1 gm PO Q6H 08/28/23 [History] diphenhydrAMINE & Zinc Cream [Benadryl Cream] 1 applic TOPICAL BID 08/28/23 [History] HYDROcodone/APAP 5-325MG [[place] 5-325] 1 tab PO Q6HR PRN #4 tab 08/30/23 [Rx] Follow up Appointment(s)/Referral(s): Simon Bautista MD [Medical Doctor] - 1-2 days Ambulatory/Diagnostic Orders: Basic Metabolic Panel [LAB.AMB] Location: None Selected Complete Blood Count w/diff [LAB.AMB] Time Frame: 3 Days, Location: None Selected Discharge Disposition: TRANSFER TO SNF/ECF
[2023-08-30] MEDS: POTASSIUM CHLORIDE ER 20 MEQ TAB.ER PO STA (16:30)
[2023-08-30] MEDS ORDERED: SUCRALFATE 1 GM TAB PO SCH (17:30)
--- NOTE | 2023-09-02 06:29 | CDI ---
Documentation Clarification Form Date: 09/02/23 From: Yessy Acosta Admit Date: 08/27/2023 09:57:00 PM Patient Name: Simon Valdez Visit Number: [id number] Discharge Date: 08/30/2023 05:46:00 PM ATTENTION: The Clinical Documentation Specialists (CDI) and [facility] Coding Staff appreciate your assistance in clarifying documentation. Please respond to the clarification below the line at the bottom and electronically sign. The CDI & [facility] Coding staff will review the response and follow-up if needed. Please note: Queries are made part of the Legal Health Record. If you have any questions, please contact the author of this message via ITS. Dr. Gloria Love, Unspecified anemia is documented in ED Note, H&P, consult and discharge summary. Additional specificity regarding the [type, acuity] of anemia is requested. History/Risk Factors: Dementia, HTN w chronic systolic CHF, T2DM w osteomyelitis of right BKA Clinical indicators: Presents with dark stools and significant anemia. Hemoglobin: 6.5 (08/26) Hematocrit: 19.4 (08/26) Treatment: Transfusion of 2 units of RBC Please clarify the type and acuity of anemia: [ x] Acute blood loss anemia [ ] Acute on chronic blood loss anemia [ ] Chronic blood loss anemia [ ] Iron deficiency anemia [ ] Unable to determine [ ] Other, please specify MTDD
== END 2023-08-30 17:46 | DRG 378 ==
LOC: EC 20:18 → 3SCARD 21:57
PROVIDERS: ADMIT Hospitalist; ATTEND Hospitalist
PROC: 30233N1 Transfusion of Nonautologous Red Blood Cells into Peripheral Vein, Percutaneous Approach (ICD-10-PCS; 2023-08-28)
PROC: 0DB68ZX Excision of Stomach, Via Natural or Artificial Opening Endoscopic, Diagnostic (ICD-10-PCS; principal; 2023-08-30 07:30)
DX: K29.01 Acute gastritis with bleeding (principal); D62 Acute posthemorrhagic anemia; F03.93 Unspecified dementia, unspecified severity, with mood disturbance; I50.22 Chronic systolic (congestive) heart failure; N17.9 Acute kidney failure, unspecified; I42.9 Cardiomyopathy, unspecified; M86.9 Osteomyelitis, unspecified; F03.94 Unspecified dementia, unspecified severity, with anxiety; T87.43 Infection of amputation stump, right lower extremity; E11.69 Type 2 diabetes mellitus with other specified complication; I11.0 Hypertensive heart disease with heart failure; B96.4 Proteus (mirabilis) (morganii) as the cause of diseases classified elsewhere; E66.9 Obesity, unspecified; J44.9 Chronic obstructive pulmonary disease, unspecified; F20.9 Schizophrenia, unspecified; F32.A Depression, unspecified; Z79.4 Long term (current) use of insulin; Z68.25 Body mass index [BMI] 25.0-25.9, adult; I25.10 Atherosclerotic heart disease of native coronary artery without angina pectoris; E78.5 Hyperlipidemia, unspecified; K21.9 Gastro-esophageal reflux disease without esophagitis; M19.90 Unspecified osteoarthritis, unspecified site; H91.90 Unspecified hearing loss, unspecified ear; I25.2 Old myocardial infarction; Z79.82 Long term (current) use of aspirin; Z79.02 Long term (current) use of antithrombotics/antiplatelets; Z79.84 Long term (current) use of oral hypoglycemic drugs; Z79.2 Long term (current) use of antibiotics; Z79.899 Other long term (current) drug therapy; Z85.841 Personal history of malignant neoplasm of brain; Z86.14 Personal history of Methicillin resistant Staphylococcus aureus infection; Z88.8 Allergy status to other drugs, medicaments and biological substances
CPT/HCPCS: 36415; 36430; 43239; 71045; 80048; 80053; 83735; 84100; 85025; 85027; 85610; 85730; 86850; 86900; 86901; 86920; 88305; 93306; 94640; 96361; 96374; 96376; 99291

== ENCOUNTER → 2023-09-24 | Outpatient (CLI) | payer OTHER ==
--- NOTE | 2023-09-26 16:59 | US ---
EXAMINATION TYPE: US arterial LE single level DATE OF EXAM: 09/24/2023 12:52 PM CLINICAL INDICATION: Male, 68 years old with history of L89.610 PRESSURE ULCER OF RT HEEL, UNSTAGEABL E; Bilateral ulcers right toes and left little toe amputated unable to lay patient flat. History of: Smoker: Previous Hypertension: no Diabetic: yes Hyperlipidemia: yes TIA/CVA: yes Previous Vascular Surgery: yes CAD: yes OH: yes Vascular Ulcers: yes Claudication: yes Gangrene: no Doppler Waveforms: Right: Predominantly monophasic waveforms Left: Predominantly monophasic waveforms Right Brachial Pressure: 119 Left Brachial Pressure: 128 Ankle-Brachial Indices: Right: 1.03 Left: 0.95 (Vessel hardening > 1.4; Normal 0.9 - 1.4, Moderate 0.7 - 0.9, Severe 0.5-0.7) Toe Brachial Indices: Right: N/A amputated. Left: 0.69 IMPRESSION: 1. Mild to moderate peripheral arterial vascular disease of the left lower extremity. 2. Normal atypical brachial index however diffuse monophasic waveform suggests at least mild peripher al vascular arterial disease.
== END | disposition home or self-care (01) ==
LOC: RADUSWWP 12:00
PROVIDERS: ATTEND Thoracic Surgery (Cardiothoracic Vascular Surgery)
DX: L89.610 Pressure ulcer of right heel, unstageable (principal)
CPT/HCPCS: 93922

== ENCOUNTER → 2023-10-22 | Outpatient (CLI) | payer OTHER ==
--- NOTE | 2023-10-22 11:53 | XR ---
EXAMINATION TYPE: XR chest 2V DATE OF EXAM: 10/22/2023 COMPARISON: 08/28/2023 INDICATION: Preprocedure evaluation TECHNIQUE: Frontal and lateral views of the chest are obtained. FINDINGS: The heart size is normal. The pulmonary vasculature is normal. The lungs are clear. IMPRESSION: 1. No acute pulmonary process.
== END | disposition home or self-care (01) ==
LOC: RADXRMAIN 10:41
PROVIDERS: ATTEND Nurse Practitioner
DX: Z01.818 Encounter for other preprocedural examination (principal)
CPT/HCPCS: 71046

== ENCOUNTER 2023-10-27 10:17 | Day surgery (SDC) | payer OTHER ==
[2023-10-26 10:50] VITALS: BMI 33.7
[~2023-10-27 10:17] MED LIST changes: -ALPRAZolam 0.25 MG TAB PO PRN; -ALPRAZolam 0.5 MG TAB PO PRN; -HEPARIN SODIUM,PORCINE 10,000 UNIT in SODIUM CHLORIDE 0.9% 1,000 ML IRRIGATION PRN; -HEPARIN SODIUM,PORCINE 2,500 UNIT in SODIUM CHLORIDE 0.9% 250 ML IRRIGATION PRN; +HYDROmorphone 0.5 MG/0.5 ML SYRINGE IVP PRN; -SODIUM CHLORIDE 0.9% 1,000 ML in EMPTY BAG 1 BAG IV ONE; -ZOLPIDEM 5 MG TAB PO PRN; +fentaNYL (PF) 50 MCG/ML 2 ML AMP IV PRN; +metroNIDAZOLE-NS PMX 500 MG in SALINE 1 100ML.BAG IVPB PRN
[2023-10-27 11:16] VITALS: TEMP 97
[2023-10-27] MEDS: LACTATED RINGERS 1,000 ML IV SCH (11:41)
[2023-10-27] MEDS: LIDOCAINE 1% (10MG/ML) FOR IV START INTRADERMA ONE (11:42)
[2023-10-27] MEDS: IV FLUID CONTINUATION 1,000 ML IV ONE (11:42)
[2023-10-27] MEDS: DEXAMETHASONE SOD PHOSPHATE 4 MG/ML 1 ML VIAL IV ONE (11:53)
[2023-10-27] MEDS: ONDANSETRON 4 MG/2 ML VIAL IVP ONE (11:53)
[2023-10-27] MEDS ORDERED: ROCURONIUM 10 MG/ML (5 ML VIAL) IV ONE (13:23)
[2023-10-27] MEDS ORDERED: fentaNYL (PF) 50 MCG/ML 2 ML AMP ONE (13:23)
[2023-10-27] MEDS ORDERED: PROPOFOL 10 MG/ML 20 ML VIAL IV ONE (13:23)
[2023-10-27] MEDS ORDERED: PHENYLEPHRINE-0.9% NACL SYG 1,000 MCG/10 ML SYRINGE ONE (13:23)
[2023-10-27] MEDS ORDERED: GLYCOPYRROLATE 0.2 MG/ML 2 ML VIAL ONE (13:23)
[2023-10-27] MEDS ORDERED: LIDOCAINE 1% INJ 10MG/ML (20 ML MDV) ONE (13:23)
[2023-10-27] MEDS ORDERED: NEOSTIGMINE 1 MG/ML 10 ML VIAL ONE (13:23)
[2023-10-27] MEDS: ceFAZolin 3 GM in SODIUM CHLORIDE 0.9% 100 ML IVPB PRN (13:28)
[2023-10-27] MEDS: LIDOCAINE 2%-EPI 1:100,000 20 ML VIAL SQ ONE ×2 (13:52)
[2023-10-27 16:03] LABS: Glucose,Whole Blood 129 mg/dL (70-110)
[2023-10-27 16:32] VITALS: RESP 16
[2023-10-27 16:47] VITALS: BP 130/77; PULSE 73
--- NOTE | 2023-10-27 22:25 | OP ---
OPERATIVE REPORT DATE OF SERVICE : 10/27/2023 PREOPERATIVE DIAGNOSES: 1. Right and left maxillary exostoses. 2. Grossly carious teeth. 3. Abscessed teeth. 4. Periodontal disease. POSTOPERATIVE DIAGNOSES: 1. Right and left maxillary exostoses. 2. Grossly carious teeth. 3. Abscessed teeth. 4. Periodontal disease. PROCEDURES PERFORMED: 1. Removal of the right and left maxillary exostoses. 2. Surgical extraction of teeth numbers 2, 3, 4, 5, 6, 7, 8, 9, 10, 11, 12, 13, 14, 15,16, 18, 19, 20, 21, 22, 23, 24, 25, 26, 27, 28, 29, 30, and 31. 3. Maxillary mandibular alveoloplasty. ANESTHESIA: General via oral endotracheal intubation. ESTIMATED BLOOD LOSS: 10 mL. DRAINS: None. SPECIMENS: None. COMPLICATIONS: None. INDICATIONS FOR PROCEDURE: The patient is a 68-year-old male, who has multiple health issues, who requires extraction of his remaining dentition with a removal of the maxillary exostoses and any irregularities of the maxillary or mandibular jaw. The risks, benefits, and alternatives of the procedure were reviewed with the patient at length and all of his questions answered to his satisfaction. DESCRIPTION OF PROCEDURE: The patient was taken to the operating room, placed on the operating table in the supine position. Next, he was induced via the IV route and he was then intubated orally. Once the tube was secured, a general plane of anesthesia was then maintained throughout the operative course. The surgeon then approached the operative field and the patient was prepped and draped in usual manner for this procedure. 2% lidocaine with 1:100,000 parts epinephrine was then used to provide a right and left inferior alveolar nerve block, buccal block, lingual block, and then maxillary infiltration onto the palate and vestibule. Attention was then directed to the lower right quadrant, where a 15 blade was utilized to develop a full-thickness envelope mucoperiosteal flap. An elevator and forceps technique was then used following bone removal for the removal of teeth numbers 31, 30, 29, 28, 27, 26 and 25. Buccal irregularities and prominent bone was then smoothed down utilizing rotary instrumentation. The wound was irrigated thoroughly and the flap was reapproximated utilizing 3-0 gut in an interrupted and running fashion. Attention was then directed to the maxillary right posterior quadrant, where similar technique was utilized to remove teeth numbers 2, 3, 4, 5, 6, 7, 8 in addition to the removal of the maxillary exostoses. Attention was then directed to the left maxilla, where teeth numbers 9, 10, 11, 12, 13, 14 and 15 were removed utilizing elevator and forceps technique in addition to bone removal. The exostoses were then removed utilizing rotary instrumentation. Then, the flap was closed utilizing 3-0 gut in a running interlocking manner. Attention was then directed to the lower left quadrant, where similar technique was utilized to remove teeth numbers 18, 19, 20, 21, 22, 23, and 24. Any irregular use of the bone was then removed utilizing rotary instrumentation. The flap was then closed utilizing interrupted 3-0 gut. The patient tolerated the procedure well without complications. The throat pack was removed notifying both Nursing and Anesthesia. The patient tolerated the procedure well without complications. MMODL / IJN: [id number] /
== END 2023-10-27 17:09 ==
LOC: OR 10:17
PROVIDERS: ATTEND Dentist Oral and Maxillofacial Surgery
DX: K02.9 Dental caries, unspecified (principal); K04.7 Periapical abscess without sinus; K05.6 Periodontal disease, unspecified
CPT/HCPCS: 41899; J1100; J2710; J0690; J2405; J2001; J3010; J2704; J2371; J1596

== ENCOUNTER → 2023-12-22 | Day surgery (SDC) | payer OTHER ==
[2023-12-22 06:58] LABS: Glucose,Whole Blood 170 mg/dL (70-110)
[2023-12-22 07:25] VITALS: BP 144/68; PULSE 65; RESP 16; TEMP 98.7
[2023-12-22 08:09] LABS: African American GFR (CKD) 71 (>60 ml/min/1.73 sqM); Anion Gap 10 mmol/L; Blood Urea Nitrogen 38 mg/dL (9-20); Calcium 9.4 mg/dL (8.4-10.2); Carbon Dioxide 27 mmol/L (22-30); Chloride 105 mmol/L (98-107); Glucose 179 mg/dL (74-99); Non-African American GFR(CKD) 61 (>60 ml/min/1.73 sqM); Potassium 4.1 mmol/L (3.5-5.1); Sodium 142 mmol/L (137-145)
[2023-12-22] MEDS: cefTRIAXone 600 MG in SODIUM CHLORIDE 0.9% 50 ML IVPB ONE (09:05)
[2023-12-22 09:27] LABS: Anisocytosis Slight; Basophils % (A) 0 %; Eosinophils # (A) 0.1 k/uL (0-0.7); Eosinophils % (A) 1 %; HCT 26.8 % (39.0-53.0); HGB 8.6 gm/dL (13.0-17.5); Hypochromasia Slight; Lymphocytes # (A) 1.3 k/uL (1.0-4.8); Lymphocytes % (A) 11 %; MCH 27.4 pg (25.0-35.0); MCHC 31.9 g/dL (31.0-37.0); MCV 85.7 fL (80.0-100.0); Mean Platelet Volume 7.5; Monocytes # (A) 0.6 k/uL (0-1.0); Monocytes % (A) 5 %; Neutrophils # (A) 9.4 k/uL (1.3-7.7); Neutrophils % (A) 82 %; Platelet Count 325 k/uL (150-450); RBC 3.13 m/uL (4.30-5.90); WBC 11.6 k/uL (3.8-10.6)
[2023-12-22 15:22] LABS: Erythrocyte Sedimentation Rate 80 mm/Hr (0-20)
== END ==
LOC: CATHCVL 06:33
PROVIDERS: ATTEND Thoracic Surgery (Cardiothoracic Vascular Surgery)
DX: M86.171 Other acute osteomyelitis, right ankle and foot (principal)
CPT/HCPCS: 36573; 80048; 85025; 85652; 86140

== ENCOUNTER 2024-01-02 21:52 | Emergency (ER) | payer OTHER ==
[2024-01-02 22:00] VITALS: RESP 18; TEMP 98.3
--- NOTE | 2024-01-02 22:14 | ED ---
General Adult HPI - General Chief complaint: Fall Stated complaint: Fall - On thinners Time Seen by Provider: 01/02/24 21:53 Source: EMS Mode of arrival: EMS - History of Present Illness Initial comments: Dictation was produced using [employer] dictation software. please excuse any gram matical, word or spelling errors. Chief Complaint: 68-year-old male presents to the emergency department after fall out of bed History of Present Illness: Patient 68 debilitated male. States that he was fixing his bed when he accidentally fell off the bed. He states he hurt his bilateral knees and hit his head. Patient reports taking anticoagulation medications. Patient denies any loss of consciousness. Denies any headache. No dizziness The ROS documented in this emergency department record has been reviewed and confirmed by me. Those systems with pertinent positive or negative responses have been documented in the HPI. All other systems are other negative and/or noncontributory. - Related Data Home Medications Medication Instructions Recorded Confirmed Atorvastatin [Lipitor] 80 mg PO HS@2100 01/12/19 12/21/23 Clopidogrel Bisulfate [Plavix] 75 mg PO QAM 07/28/21 12/21/23 Ferrous Sulfate [Iron (65 MG 325 mg PO QAM 07/28/21 12/21/23 Elemental)] Ipratropium-Albuterol Nebulize 3 ml INHALATION RT-Q6H PRN 07/28/21 12/21/23 [Duoneb 0.5 mg-3 mg/3 ml Soln] Famotidine [Pepcid] 20 mg PO BID 03/18/22 12/21/23 Topiramate [Topamax] 25 mg PO HS 04/01/22 12/21/23 Acetaminophen [Tylenol] 650 mg PO Q6H PRN 04/22/22 12/21/23 Albuterol Sulfate [Albuterol 1 - 2 puff INHALATION RT-Q4H PRN 04/22/22 12/21/23 Sulfate Hfa] Dicyclomine 10mg/5ml Oral Solution 5 ml PO TID 07/06/22 12/21/23 Isosorbide Mononitrate ER [Imdur] 30 mg PO QAM 07/06/22 12/21/23 Nitroglycerin Sl Tabs [Nitrostat] 0.4 mg SL Q5M PRN 10/20/22 12/21/23 Metoprolol Tartrate [Lopressor] 12.5 mg PO BID 12/08/22 12/21/23 Furosemide [Lasix] 40 mg PO QAM 03/31/23 12/21/23 Lactobacillus Acidophilus 1 cap PO BID 03/31/23 12/21/23 [Acidophilus Probiotic] Albuterol Nebulized [Ventolin 2.5 mg INHALATION RT-Q6H PRN 08/28/23 12/21/23 Nebulized] Benzonatate [Tessalon Perles] 100 mg PO Q8H PRN 08/28/23 12/21/23 Cholecalciferol [Vitamin D3 (25 125 mcg PO QAM 08/28/23 12/21/23 Mcg = 1000 Iu)] Colchicine [Colcrys] 0.6 mg PO HS 08/28/23 12/21/23 Cyclobenzaprine [Flexeril] 10 mg PO Q8H PRN 08/28/23 12/21/23 Dapagliflozin Propanediol [Farxiga] 10 mg PO QAM 08/28/23 12/21/23 Insulin Glargine,Hum.rec.anlog 25 units SQ 08/28/23 12/21/23 [Lantus Solostar Pen] Insulin Glargine,Hum.rec.anlog 32 units SQ QA 08/28/23 12/21/23 [Lantus Solostar Pen] Lactulose [Cephulac] 20 gm PO DAILY PRN 08/28/23 12/21/23 Naloxone HCl [Narcan] 4 mg NASAL DIRECTED PRN 08/28/23 12/21/23 Sucralfate [Carafate] 1 gm PO Q6H 08/28/23 12/21/23 diphenhydrAMINE & Zinc Cream 1 applic TOPICAL BID 08/28/23 12/21/23 [Benadryl Cream] Pantoprazole Sodium [Protonix] 40 mg PO QAM 10/26/23 12/21/23 Ascorbic Acid [Vitamin C] 250 mg PO DAILY 12/21/23 12/21/23 Chlorhexidine Gluconate [Peridex] 15 ml PO BID 12/21/23 12/21/23 Naproxen 250 mg PO BID 12/21/23 12/21/23 Previous Rx's Medication Instructions Recorded Escitalopram [Lexapro] 20 mg PO HS tab 04/26/23 Melatonin 3 mg PO HS tab 04/26/23 HYDROcodone/APAP 5-325MG [[place] 1 tab PO Q6HR PRN #4 tab 08/30/23 5-325] Allergies Allergy/AdvReac Type Severity Reaction Status Date / Time furosemide [From Lasix] AdvReac Unknown Verified 01/02/24 22:00 sacubitril [From Entresto] AdvReac made him Verified 01/02/24 22:00 hypotensive valsartan [From Entresto] AdvReac made him Verified 01/02/24 22:00 hypotensive Review of Systems ROS Statement: Those systems with pertinent positive or pertinent negative responses have been documented in the HPI. ROS Other: All systems not noted in ROS Statement are negative. Past Medical History Past Medical History: Cancer, Heart Failure, COPD, Dementia, Diabetes Mellitus, GERD/Reflux, Hearing Disorder / Deafness, Hyperlipidemia, Hypertension, Myocardial Infarction ([place]), Osteoarthritis (OA), Pneumonia, Skin Disorder Additional Past Medical History / Comment(s): Brain CA (30 years ago) in remission. anemia,cardiomyapathy,cellulitis rt heel, [place], wears a brief. 02 2L ATC Last Myocardial Infarction Date:: 2021 History of Any Multi-Drug Resistant Organisms: MRSA Date of last positivie culture/infection: 12/08/2023 MDRO Source:: RT HEEL; LEFT FOOT Past Surgical History: Appendectomy, Heart Catheterization, Tonsillectomy Additional Past Surgical History / Comment(s): cataracts, vasectomy, partial right foot amputation Past Anesthesia/Blood Transfusion Reactions: No Reported Reaction Additional Past Anesthesia/Blood Transfusion Reaction / Comment(s): none known per [facility] Past Psychological History: Anxiety, Depression, Schizophrenia Smoking Status: Former smoker Past Alcohol Use History: None Reported, Rare - Past Family History Father Additional Family Medical History / Comment(s): Father had multiple MIs and from one at the age of 51 yrs. unable to confirm through [facility] Mother Additional Family Medical History / Comment(s): Mother had a bad heart. unable to confirm from [facility] General Exam - General Exam Comments Initial Comments: PHYSICAL EXAM: General Impression: Alert and oriented x3, not in acute distress HEENT: Abrasion to the right forehead, extra-ocular movements intact, pupils equal and reactive to light bilaterally, mucous membranes moist. Cardiovascular: Heart regular rate and rhythm Chest: Able to complete full sentences, no retractions, no tachypnea Abdomen: abdomen soft, non-tender, non-distended, no organomegaly Musculoskeletal: Pulses present and equal in all extremities, no peripheral edema Motor: no focal deficits noted Neurological: CN II-XII grossly intact, no focal motor or sensory deficits noted Skin: abrasions to the bilateral knees Psych: Normal affect and mood Course Vital Signs 01/02/24 01/02/24 21:57 22:30 Temperature 98.3 F Pulse Rate 84 86 Respiratory 18 18 Rate Blood Pressure 166/64 139/69 O2 Sat by Pulse 99 100 Oximetry Medical Decision Making - Medical Decision Making Was pt. sent in by a medical professional or institution (Dr. PA, PRO SHOP ATTENDANT, urgent care, hospital, or [facility]...) When possible be specific @ -No Did you speak to anyone other than the patient for history (EMS, parent, family, police, friend...)? What history was obtained from this source @ -Some history obtained from EMS as described above Did you review nursing and triage notes (agree or disagree)? Why? @ -I reviewed and agree with nursing and triage notes Were old charts reviewed (outside hosp., previous admission, EMS record, old EKG, old radiological studies, urgent care reports/EKG's, [facility] records)? Report findings @ -No old charts were reviewed Differential Diagnosis (chest pain, altered mental status, abdominal pain women, abdominal pain men, vaginal bleeding, musculoskeletal, weakness, fever, dyspnea, syncope, headache, dizziness, GI bleed, back pain, seizure, CVA, palpatations, mental health)? @ -Skull fracture, knee fracture, head contusion EKG interpreted by me (3pts min.). @ -See above X-rays interpreted by me (1pt min.). @ -Bilateral knee x-ray shows no acute processes CT interpreted by me (1pt min.). @ -CT scan of the head and C-spine shows no acute processes U/S interpreted by me (1pt. min.). @ -None done What testing was considered but not performed or refused? (CT, X-rays, U/S, labs)? Why? @ -None What meds were considered but not given or refused? Why? @ -None Was smoking cessation discussed for >3mins.? @ -No Were there social determinants of health that impacted care today? How? (Homelessness, low income, unemployed, alcoholism, drug addiction, transportation, low edu. Level, literacy, decrease access to med. care, care home, rehab)? @ -No Was there de-escalation of care discussed even if they declined (Discuss DNR or withdrawal of care, Hospice)? DNR status @ -No What co-morbidities impacted this encounter? (DM, HTN, Smoking, COPD, CAD, Cancer, CVA, ARF, Chemo, Hep., AIDS, mental health diagnosis, sleep apnea, morbid obesity)? @ -Anticoagulation use Was patient admitted / discharged? Hospital course, mention meds given and route, prescriptions, significant lab abnormalities, going to OR and other pert inent info. @ -68-year-old male presents to the emergency department after mechanical fall out of bed. Vital signs stable. Well-appearing at the bedside. Patient has no gross traumatic deformities. Labs and imaging unremarkable. Patient discharged back to [facility] Did you discuss the management of the patient with other professionals (professionals i.e. , PA, PRO SHOP ATTENDANT, lab, RT, psych nurse, social welfare research worker, campaign management specialist, teacher, chief resource officer, case liner)? Give summary @ -No Was critical care preformed (if so, how long)? @ -No Undiagnosed new problem with uncertain prognosis? @ -No Drug Therapy requiring intensive monitoring for toxicity (Heparin, Nitro, Insulin, Cardizem)? @ -No Were any procedures done? @ -No Diagnosis/symptom? Acute, or Chronic, or Acute on Chronic? Uncomplicated (without systemic symptoms) or Complicated (systemic symptoms)? @ -Contusion, bilateral knee contusion Side effects of treatment? @ -No Exacerbation, Progression, or Severe Exacerbation? @ -No Poses a threat to life or bodily function? How? (Chest pain, [place], [place], pneumonia, PE, COPD, DKA, ARF, appy, cholecystitis, CVA, Diverticulitis, Homicidal, Suicidal, threat to staff... and all critical care pts) @ -No - Lab Data Result diagrams: 01/02/24 22:16 01/02/24 22:16 Lab Results 01/02/24 01/02/24 01/02/24 Range/Units 22:16 22:16 22:16 WBC 8.8 (3.8-10.6) k/uL RBC 3.29 L (4.30-5.90) m/uL Hgb 8.4 L (13.0-17.5) gm/dL Hct 27.8 L (39.0-53.0) % MCV 84.4 (80.0-100.0) fL MCH 25.5 (25.0-35.0) pg MCHC 30.3 L (31.0-37.0) g/dL RDW 15.8 H (11.5-15.5) % Plt Count 318 (150-450) k/uL MPV 6.8 Neutrophils % 76 % Lymphocytes % 12 % Monocytes % 5 % Eosinophils % 5 % Basophils % 0 % Neutrophils # 6.6 (1.3-7.7) k/uL Lymphocytes # 1.0 (1.0-4.8) k/uL Monocytes # 0.5 (0-1.0) k/uL Eosinophils # 0.5 (0-0.7) k/uL Basophils # 0.0 (0-0.2) k/uL Hypochromasia Marked PT 11.1 (10.0-12.5) sec INR 1.0 (<1.2) APTT 28.1 (22.0-30.0) sec Sodium 137 (137-145) mmol/L Potassium 4.2 (3.5-5.1) mmol/L Chloride 105 (98-107) mmol/L Carbon Dioxide 24 (22-30) mmol/L Anion Gap 8 mmol/L BUN 49 H (9-20) mg/dL Creatinine 1.44 H (0.66-1.25) mg/dL Est GFR (CKD-EPI)AfAm 58 (>60 ml/min/1.73 sqM) Est GFR (CKD-EPI)NonAf 50 (>60 ml/min/1.73 sqM) Glucose 122 H (74-99) mg/dL Calcium 9.2 (8.4-10.2) mg/dL Disposition Clinical Impression: Fall Disposition: HOME SELF-CARE Condition: Good Instructions (If sedation given, give patient instructions): Fall Prevention for Older Adults (ED) Is patient prescribed a controlled substance at d/c from ED?: No Referrals: Demetrius Farah MD [Primary Care Provider] - 1-2 days Time of Disposition: 00:05
[2024-01-02 23:01] LABS: Partial Thromboplastin Time 28.1 sec (22.0-30.0); Prothrombin Time 11.1 sec (10.0-12.5)
[2024-01-02 23:04] LABS: Basophils % (A) 0 %; Eosinophils # (A) 0.5 k/uL (0-0.7); Eosinophils % (A) 5 %; HCT 27.8 % (39.0-53.0); HGB 8.4 gm/dL (13.0-17.5); Hypochromasia Marked; Lymphocytes % (A) 12 %; MCH 25.5 pg (25.0-35.0); MCHC 30.3 g/dL (31.0-37.0); MCV 84.4 fL (80.0-100.0); Mean Platelet Volume 6.8; Monocytes # (A) 0.5 k/uL (0-1.0); Monocytes % (A) 5 %; Neutrophils # (A) 6.6 k/uL (1.3-7.7); Neutrophils % (A) 76 %; Platelet Count 318 k/uL (150-450); RBC 3.29 m/uL (4.30-5.90); RDW 15.8 % (11.5-15.5); WBC 8.8 k/uL (3.8-10.6)
--- NOTE | 2024-01-02 23:13 | XR ---
EXAMINATION TYPE: XR knee complete bilateral DATE OF EXAM: 01/02/2024 CLINICAL HISTORY: Fall with pain TECHNIQUE: Three views of bilateral knees are obtained. COMPARISON: None. FINDINGS: There is no acute fracture/dislocation evident in either knee. Moderate tricompartmental j oint space loss is present bilaterally. Posterior arteriovascular calcification is seen bilaterally. IMPRESSION: There is no acute fracture or dislocation in either knee. [facility], , 01/02/2024 11:11 PM
[2024-01-02 23:18] LABS: African American GFR (CKD) 58 (>60 ml/min/1.73 sqM); Anion Gap 8 mmol/L; Blood Urea Nitrogen 49 mg/dL (9-20); Calcium 9.2 mg/dL (8.4-10.2); Carbon Dioxide 24 mmol/L (22-30); Chloride 105 mmol/L (98-107); Glucose 122 mg/dL (74-99); Non-African American GFR(CKD) 50 (>60 ml/min/1.73 sqM); Potassium 4.2 mmol/L (3.5-5.1); Sodium 137 mmol/L (137-145)
--- NOTE | 2024-01-02 23:31 | CT ---
EXAMINATION TYPE: CT brain polyine wo con DATE OF EXAM: 01/02/2024 COMPARISON: CT brain March 18, 2022 HISTORY: Patient is coming from [facility]. Patient fell adjusting in bed. Patient has an abrasion to his arm and head. Patient does take plavix. No LOC. CT DLP: 1660.9 mGycm. Automated Exposure Control for Dose Reduction was Utilized. TECHNIQUE: CT scan of the head and cervical spine are performed without contrast. FINDINGS: There is no acute intracranial hemorrhage or midline shift identified. Mild to moderate v entricular and sulcal prominence is redemonstrated. Munoz-white matter differentiation is preserved. The calvarium is intact. Bilateral aphakia redemonstrated. The visualized sinuses are grossly clear. Cervical spine is visualized in its entirety from C1 through upper thoracic levels and demonstrates g rade 1 retrolisthesis C3 on C4 alignment without evidence of acute fracture or dislocation. Preverte bral soft tissue appears within normal limits. The C1-C2 articulation is within normal limits on the coronal images. Vertebral body heights are maintained. There is moderate to severe multilevel disc space narrowing. Axial images show multilevel uncovertebral facet degenerative changes bilaterally. T hyroid gland is within normal limits. Lung apices are clear without pneumothorax. IMPRESSION: 1. There is no acute fracture or dislocation evident in the cervical spine. 2. No acute intracranial hemorrhage or midline shift is seen. [facility], , 01/02/2024 11:29 PM
[2024-01-03 01:03] VITALS: BP 148/78; PULSE 82
== END 2024-01-03 01:30 | disposition home or self-care (01) ==
LOC: EC 21:52
CPT/HCPCS: 36415; 70450; 72125; 80048; 85025; 85610; 85730; 93005

== ENCOUNTER 2024-01-28 19:21 | Emergency (ER) | payer OTHER ==
[2024-01-28 19:33] VITALS: TEMP 99.2
--- NOTE | 2024-01-28 19:48 | ED ---
Neuro HPI - General Chief Complaint: Neuro Symptoms/Deficit Stated Complaint: AMS Time Seen by Provider: 01/28/24 19:22 Source: patient, RN notes reviewed, old records reviewed Mode of arrival: EMS Limitations: no limitations - History of Present Illness Is the patient presenting with stroke symptoms?: Yes Initial Comments: This is a 68-year-old female, poor historian with poor mental status was sent in by his primary care for evaluation of either syncope versus seizure-like activity. Patient has no code DO NOT RESUSCITATE, coming from extended-care facility with a just been concerned about his recent mental state Place: home Severity: mild Improves With: none Worsens With: none On Anticoagulants: No Associated Symptoms: denies other symptoms Treatments Prior to Arrival: none - Related Data Home Medications: Home Medications Medication Instructions Recorded Confirmed Atorvastatin [Lipitor] 80 mg PO HS 01/12/19 01/28/24 Clopidogrel Bisulfate [Plavix] 75 mg PO DAILY 07/28/21 01/28/24 Ferrous Sulfate [Iron (65 MG 325 mg PO DAILY 07/28/21 01/28/24 Elemental)] Ipratropium-Albuterol Nebulize 3 ml INHALATION RT-Q6H PRN 07/28/21 01/28/24 [Duoneb 0.5 mg-3 mg/3 ml Soln] Famotidine [Pepcid] 20 mg PO BID 03/18/22 01/28/24 Topiramate [Topamax] 25 mg PO HS 04/01/22 01/28/24 Acetaminophen [Tylenol] 650 mg PO Q6H PRN 04/22/22 01/28/24 Albuterol Sulfate [Albuterol 1 - 2 puff INHALATION RT-Q4H PRN 04/22/22 01/28/24 Sulfate Hfa] Dicyclomine 10mg/5ml Oral Solution 10 mg PO TID 07/06/22 01/28/24 Isosorbide Mononitrate ER [Imdur] 30 mg PO DAILY 07/06/22 01/28/24 Nitroglycerin Sl Tabs [Nitrostat] 0.4 mg SL Q5M PRN 10/20/22 01/28/24 Metoprolol Tartrate [Lopressor] 12.5 mg PO BID 12/08/22 01/28/24 Furosemide [Lasix] 40 mg PO DAILY 03/31/23 01/28/24 Lactobacillus Acidophilus 1 cap PO BID 03/31/23 01/28/24 [Acidophilus Probiotic] Albuterol Nebulized [Ventolin 2.5 mg INHALATION RT-Q6H PRN 08/28/23 01/28/24 Nebulized] Benzonatate [Tessalon Perles] 100 mg PO Q8H PRN 08/28/23 01/28/24 Cholecalciferol [Vitamin D3 (25 125 mcg PO DAILY 08/28/23 01/28/24 Mcg = 1000 Iu)] Colchicine [Colcrys] 0.6 mg PO HS 08/28/23 01/28/24 Cyclobenzaprine [Flexeril] 10 mg PO Q8H PRN 08/28/23 01/28/24 Dapagliflozin Propanediol [Farxiga] 10 mg PO DAILY 08/28/23 01/28/24 Insulin Glargine,Hum.rec.anlog 25 units SQ HS 08/28/23 01/28/24 [Lantus Solostar Pen] Insulin Glargine,Hum.rec.anlog 32 units SQ DAILY 08/28/23 01/28/24 [Lantus Solostar Pen] Lactulose [Cephulac] 20 gm PO DAILY PRN 08/28/23 01/28/24 Naloxone HCl [Narcan] 4 mg NASAL DIRECTED PRN 08/28/23 01/28/24 Sucralfate [Carafate] 1 gm PO Q6H 08/28/23 01/28/24 diphenhydrAMINE & Zinc Cream 1 applic TOPICAL BID PRN 08/28/23 01/28/24 [Benadryl Cream] Pantoprazole Sodium [Protonix] 40 mg PO DAILY 10/26/23 01/28/24 Ascorbic Acid [Vitamin C] 250 mg PO DAILY 12/21/23 01/28/24 Chlorhexidine Gluconate [Peridex] 15 ml PO BID 12/21/23 01/28/24 Dakins (1/2 Strength) External 1 applic TOPICAL HS 01/28/24 01/28/24 Solution 0.25% HYDROcodone/APAP 5-325MG [[place] 1 tab PO Q12H PRN 01/28/24 01/28/24 5-325] HYDROcodone/APAP 5-325MG [[place] 1 tab PO Q8H 01/28/24 01/28/24 5-325] Paliperidone [Invega] 3 mg PO DAILY 01/28/24 01/28/24 Prostat 30 ml PO BID 01/28/24 01/28/24 Previous Rx's Medication Instructions Recorded Escitalopram [Lexapro] 20 mg PO HS tab 04/26/23 Melatonin 3 mg PO HS tab 04/26/23 Allergies/Adverse Reactions: Allergies Allergy/AdvReac Type Severity Reaction Status Date / Time furosemide [From Lasix] AdvReac Unknown Verified 01/28/24 20:30 sacubitril [From Entresto] AdvReac made him Verified 01/28/24 20:30 hypotensive valsartan [From Entresto] AdvReac made him Verified 01/28/24 20:30 hypotensive Review of Systems ROS Statement: Those systems with pertinent positive or pertinent negative responses have been documented in the HPI. ROS Other: All systems not noted in ROS Statement are negative. General Exam Limitations: no limitations General appearance: alert, in no apparent distress Head exam: Present: atraumatic, normocephalic, normal inspection Eye exam: Present: normal appearance, PERRL, EOMI. Absent: scleral icterus, conjunctival injection, periorbital swelling ENT exam: Present: normal exam, mucous membranes moist Neck exam: Present: normal inspection. Absent: tenderness, meningismus, lymphadenopathy Respiratory exam: Present: normal lung sounds bilaterally. Absent: respiratory distress, wheezes, rales, rhonchi, stridor Cardiovascular Exam: Present: regular rate, normal rhythm, normal heart sounds. Absent: systolic murmur, diastolic murmur, rubs, gallop, clicks GI/Abdominal exam: Present: soft, normal bowel sounds. Absent: distended, tenderness, guarding, rebound, rigid Extremities exam: Present: normal inspection, full ROM, normal capillary refill. Absent: tenderness, pedal edema, joint swelling, calf tenderness Back exam: Present: normal inspection Neurological exam: Present: alert, oriented X3, CN II-XII intact Psychiatric exam: Present: normal affect, normal mood Skin exam: Present: warm, dry, intact, normal color. Absent: rash Stroke MDM - Lab Data Result diagrams: 01/28/24 19:56 01/28/24 19:56 Lab Results 01/28/24 01/28/24 01/28/24 Range/Units 19:56 19:56 19:56 WBC 8.9 (3.8-10.6) k/uL RBC 3.08 L (4.30-5.90) m/uL Hgb 7.7 L (13.0-17.5) gm/dL Hct 25.8 L (39.0-53.0) % MCV 83.9 (80.0-100.0) fL MCH 25.0 (25.0-35.0) pg MCHC 29.8 L (31.0-37.0) g/dL RDW 17.2 H (11.5-15.5) % Plt Count 389 (150-450) k/uL MPV 7.4 Neutrophils % 86 % Lymphocytes % 5 % Monocytes % 4 % Eosinophils % 4 % Basophils % 0 % Neutrophils # 7.6 (1.3-7.7) k/uL Lymphocytes # 0.5 L (1.0-4.8) k/uL Monocytes # 0.3 (0-1.0) k/uL Eosinophils # 0.4 (0-0.7) k/uL Basophils # 0.0 (0-0.2) k/uL Hypochromasia Marked Anisocytosis Slight PT 10.7 (10.0-12.5) sec INR 1.0 (<1.2) APTT 29.7 (22.0-30.0) sec Sodium 139 (137-145) mmol/L Potassium 4.2 (3.5-5.1) mmol/L Chloride 105 (98-107) mmol/L Carbon Dioxide 25 (22-30) mmol/L Anion Gap 9 mmol/L BUN 61 H (9-20) mg/dL Creatinine 1.64 H (0.66-1.25) mg/dL Est GFR (CKD-EPI)AfAm 50 (>60 ml/min/1.73 sqM) Est GFR (CKD-EPI)NonAf 43 (>60 ml/min/1.73 sqM) Glucose 198 H (74-99) mg/dL Plasma Lactic Acid Anselmo (0.7-2.0) mmol/L Calcium 8.6 (8.4-10.2) mg/dL Phosphorus 4.5 (2.5-4.5) mg/dL Magnesium 2.6 H (1.6-2.3) mg/dL Total Bilirubin 0.4 (0.2-1.3) mg/dL AST 25 (17-59) U/L ALT 31 (4-49) U/L Alkaline Phosphatase 177 H (38-126) U/L Troponin I (0.000-0.034) ng/mL NT-Pro-B Natriuret Pep 1560 pg/mL Total Protein 6.8 (6.3-8.2) g/dL Albumin 3.3 L (3.5-5.0) g/dL 01/28/24 01/28/24 Range/Units 19:56 19:56 WBC (3.8-10.6) k/uL RBC (4.30-5.90) m/uL Hgb (13.0-17.5) gm/dL Hct (39.0-53.0) % MCV (80.0-100.0) fL MCH (25.0-35.0) pg MCHC (31.0-37.0) g/dL RDW (11.5-15.5) % Plt Count (150-450) k/uL MPV Neutrophils % % Lymphocytes % % Monocytes % % Eosinophils % % Basophils % % Neutrophils # (1.3-7.7) k/uL Lymphocytes # (1.0-4.8) k/uL Monocytes # (0-1.0) k/uL Eosinophils # (0-0.7) k/uL Basophils # (0-0.2) k/uL Hypochromasia Anisocytosis PT (10.0-12.5) sec INR (<1.2) APTT (22.0-30.0) sec Sodium (137-145) mmol/L Potassium (3.5-5.1) mmol/L Chloride (98-107) mmol/L Carbon Dioxide (22-30) mmol/L Anion Gap mmol/L BUN (9-20) mg/dL Creatinine (0.66-1.25) mg/dL Est GFR (CKD-EPI)AfAm (>60 ml/min/1.73 sqM) Est GFR (CKD-EPI)NonAf (>60 ml/min/1.73 sqM) Glucose (74-99) mg/dL Plasma Lactic Acid Anselmo 1.5 (0.7-2.0) mmol/L Calcium (8.4-10.2) mg/dL Phosphorus (2.5-4.5) mg/dL Magnesium (1.6-2.3) mg/dL Total Bilirubin (0.2-1.3) mg/dL AST (17-59) U/L ALT (4-49) U/L Alkaline Phosphatase (38-126) U/L Troponin I <0.012 (0.000-0.034) ng/mL NT-Pro-B Natriuret Pep pg/mL Total Protein (6.3-8.2) g/dL Albumin (3.5-5.0) g/dL - NIH Stroke Scale 1a. Level of Consciousness: (0) alert 1b. LOC Questions: (0) answers correctly 1c. LOC Commands: (0) performs tasks correctly 2. Best Gaze: (0) normal 3. Visual: (0) no visual loss 4. Facial Palsy: (0) normal symmetrical movement 5a. Motor Arm Left: (0) no drift 5b. Motor Arm Right: (0) no drift 6a. Motor Leg Left: (0) no drift 6b. Motor Leg Right: (0) no drift 7. Limb Ataxia: (0) absent 8. Sensory: (0) normal 9. Best Language: (0) no aphasia 10. Dysarthria: (0) normal 11. Extinction/Inattention: (0) no abnormality - Medical Decision Making 68 male to ER for evaluation today. Patient has no complaints and no findings here in the ER. Patient is a DNR DO NOT RESUSCITATE no code patient can be discharged home Past Medical History Past Medical History: Cancer, Heart Failure, COPD, Dementia, Diabetes Mellitus, GERD/Reflux, Hearing Disorder / Deafness, Hyperlipidemia, Hypertension, Myocardial Infarction ([place]), Osteoarthritis (OA), Pneumonia, Skin Disorder Additional Past Medical History / Comment(s): Brain CA (30 years ago) in remiss ion. anemia,cardiomyapathy,cellulitis rt heel, [place], wears a brief. 02 2L ATC Last Myocardial Infarction Date:: 2021 History of Any Multi-Drug Resistant Organisms: MRSA Date of last positivie culture/infection: 12/08/2023 MDRO Source:: RT HEEL; LEFT FOOT Past Surgical History: Appendectomy, Heart Catheterization, Tonsillectomy Additional Past Surgical History / Comment(s): cataracts, vasectomy, partial right foot amputation Past Anesthesia/Blood Transfusion Reactions: No Reported Reaction Additional Past Anesthesia/Blood Transfusion Reaction / Comment(s): none known per [facility] Past Psychological History: Anxiety, Depression, Schizophrenia Smoking Status: Former smoker Past Alcohol Use History: None Reported, Rare - Past Family History Father Additional Family Medical History / Comment(s): Father had multiple MIs and from one at the age of 51 yrs. unable to confirm through [facility] Mother Additional Family Medical History / Comment(s): Mother had a bad heart. unable to confirm from [facility] Course Vital Signs 01/28/24 01/28/24 01/28/24 19:24 20:47 21:00 Temperature 99.2 F Pulse Rate 97 89 90 Respiratory 17 21 16 Rate Blood Pressure 156/78 111/64 111/64 O2 Sat by Pulse 97 97 99 Oximetry 01/28/24 01/28/24 22:00 23:00 Temperature Pulse Rate 89 Respiratory 18 15 Rate Blood Pressure 117/55 101/59 O2 Sat by Pulse 99 99 Oximetry - Reevaluation(s) Reevaluation #1: 01/28/24 19:47 Medical records reviewed Reevaluation #2: 01/28/24 19:47 Patient symptoms unchanged Reevaluation #3: 01/28/24 19:47 Patient informed of results and questions answered Reevaluation #4: 01/28/24 19:47 Was pt. sent in by a medical professional or institution (, PA, [employer], urgent care, hospital, or [place] [facility]...) When possible be specific @ -no Did you speak to anyone other than the patient for history (EMS, parent, family, police, friend...)? What history was obtained from this source @ -no Did you review nursing and triage notes (agree or disagree)? Why? @ -agree Are old charts reviewed (outside hosp., previous admission, EMS record, old EKG, old radiological studies, urgent care reports/EKG's, [place] [facility] records)? Report findings @ -yes Differential Diagnosis (chest pain, altered mental status, abdominal pain women, abdominal pain men, vaginal bleeding, weakness, fever, dyspnea, syncope, hea dache, dizziness, GI bleed, back pain, seizure, CVA, palpatations, mental health, musculoskeletal)? @ -prior EKG interpreted by me (3pts min.). @ -yes X-rays interpreted by me (1pt min.). @ -no CT interpreted by me (1pt min.). @ -no U/S interpreted by me (1pt. min.). @ -no What testing was considered but not performed or refused? (CT, X-rays, U/S, labs)? Why? @ -none What meds were considered but not given or refused? Why? @ -none Did you discuss the management of the patient with other professionals (professionals i.e. DrEliot, PA, [employer], lab, RT, psych nurse, social secretary, paradi operator, teacher, pharmaceutical officer, supportive employment case manager)? Give summary @ -no Was smoking cessation discussed for >3mins.? @ -no Was critical care preformed (if so, how long)? @ -no Were there social determinants of health that impacted care today? How? (Homelessness, low income, unemployed, alcoholism, drug addiction, tra nsportation, low edu. Level, literacy, decrease access to med. care, alf, rehab)? @ -none Was there de-escalation of care discussed even if they declined (Discuss DNR or withdrawal of care, Hospice)? DNR status @ -no What co-morbidities impacted this encounter? (DM, HTN, Smoking, COPD, CAD, Cance r, CVA, ARF, Chemo, Hep., AIDS, mental health diagnosis, sleep apnea, morbid obesity)? @ -none Was patient admitted / discharged? Hospital course, mention meds given and route, prescriptions, significant lab abnormalities, going to OR and other pertinent info. @ -68 male to ER without significant complaint currently patient is a DNR patient will be discharged home Discharged Undiagnosed new problem with uncertain prognosis? @ -no Drug Therapy requiring intensive monitoring for toxicity (Heparin, Nitro, Insulin, Cardizem)? @ -no Were any procedures done? @ -no Diagnosis/symptom? @ -Normal exam Acute, or Chronic, or Acute on Chronic? @ -Acute Uncomplicated (without systemic symptoms) or Complicated (systemic symptoms)? @ -Complicated Side effects of treatment? @ -no Exacerbation, Progression, or Severe Exacerbation? @ -exacerbation Poses a threat to life or bodily function? How? (Chest pain, [place], [place], pneumonia, PE, COPD, DKA, ARF, appy, cholecystitis, CVA, Diverticulitis, Homicidal, Suicidal, threat to staff... and all critical care pts) @ -yes extremes of age Reevaluation #5: Differential Altered Mental Status: Hypoglycemia, DKA, hypercapnia, ETOH, overdose, CO poisoning, trauma, myxedema coma, HTN encephalopathy, infection, encephalitis, psychosis, intercranial hemorrhage, hepatic encephalopathy, meningitis, CVA, this is not meant to be an all-inclusive list Disposition Clinical Impression: Altered mental status, Normal exam, DNR no code (do not resuscitate) Disposition: HOME SELF-CARE Condition: Fair Instructions (If sedation given, give patient instructions): Normal Exam (ED) Is patient prescribed a controlled substance at d/c from ED?: No Referrals: Demetrius Farah MD [Primary Care Provider] - 1-2 days Time of Disposition: 20:40
[2024-01-28] MEDS: SODIUM CHLORIDE 0.9% 1,000 ML IV STA (20:01)
[2024-01-28 20:17] LABS: Anisocytosis Slight; Basophils % (A) 0 %; Eosinophils # (A) 0.4 k/uL (0-0.7); Eosinophils % (A) 4 %; HCT 25.8 % (39.0-53.0); HGB 7.7 gm/dL (13.0-17.5); Hypochromasia Marked; Lymphocytes # (A) 0.5 k/uL (1.0-4.8); Lymphocytes % (A) 5 %; MCHC 29.8 g/dL (31.0-37.0); MCV 83.9 fL (80.0-100.0); Mean Platelet Volume 7.4; Monocytes # (A) 0.3 k/uL (0-1.0); Monocytes % (A) 4 %; Neutrophils # (A) 7.6 k/uL (1.3-7.7); Neutrophils % (A) 86 %; Platelet Count 389 k/uL (150-450); RBC 3.08 m/uL (4.30-5.90); RDW 17.2 % (11.5-15.5); WBC 8.9 k/uL (3.8-10.6)
[2024-01-28 20:28] LABS: ALT 31 U/L (4-49); AST 25 U/L (17-59); African American GFR (CKD) 50 (>60 ml/min/1.73 sqM); Albumin 3.3 g/dL (3.5-5.0); Alkaline Phosphatase 177 U/L (38-126); Anion Gap 9 mmol/L; Blood Urea Nitrogen 61 mg/dL (9-20); Calcium 8.6 mg/dL (8.4-10.2); Carbon Dioxide 25 mmol/L (22-30); Chloride 105 mmol/L (98-107); Glucose 198 mg/dL (74-99); Magnesium 2.6 mg/dL (1.6-2.3); Non-African American GFR(CKD) 43 (>60 ml/min/1.73 sqM); Phosphorus 4.5 mg/dL (2.5-4.5); Potassium 4.2 mmol/L (3.5-5.1); Sodium 139 mmol/L (137-145); Total Bilirubin 0.4 mg/dL (0.2-1.3); Total Protein 6.8 g/dL (6.3-8.2)
[2024-01-28 20:31] LABS: Partial Thromboplastin Time 29.7 sec (22.0-30.0); Prothrombin Time 10.7 sec (10.0-12.5)
[2024-01-28 20:35] LABS: NT-Pro-B-Type Natriuretic Pept 1560 pg/mL
[2024-01-28 20:50] VITALS: PULSE 89
[2024-01-29 00:06] VITALS: BP 101/59; RESP 15
== END 2024-01-28 23:30 | disposition home or self-care (01) ==
LOC: SUPCPDRO 19:21 → EC 19:21
DX: R41.82 Altered mental status, unspecified (principal); Z66 Do not resuscitate; Z87.891 Personal history of nicotine dependence; Z88.8 Allergy status to other drugs, medicaments and biological substances
CPT/HCPCS: 36415; 80053; 83605; 83735; 83880; 84100; 84484; 85025; 85610; 85730; 96360; 99285